=== PATIENT | female | born 1960 | race Caucasian/White ===

== ENCOUNTER 2020-10-03 10:19 | Outpatient (REF) | payer OTHER, SELFPAY ==
--- NOTE | 2020-10-03 10:29 | XR_ITS ---
EXAMINATION: XR KNEE, LEFT CLINICAL INFORMATION: Left knee pain. M25.562 COMPARISON: Standing AP knees 12/16/2018 TECHNIQUE: Four views of the left knee. FINDINGS: There is no fracture, dislocation, or destructive process. No definite suprapatellar effusion. Hoffa's fat pad appears normal. There is normal bony mineralization. There is tricompartment osteoarthritis, greatest medial compartment with joint narrowing and osteophytes. There is mild secondary genu varus. No visible erosive change or chondrocalcinosis. XR/XR knee LT 4V IMPRESSION: Tricompartment osteoarthritis, greatest medial compartment.
== END 2020-10-03 10:20 | disposition home or self-care (01) ==
LOC: HO.HMGCX 10:19
PROVIDERS: PCP Internal Medicine; Visit Provider Nurse Practitioner Family
DX: M25.562 Pain in left knee (principal)
CPT/HCPCS: 73564

== ENCOUNTER 2020-11-26 11:05 | Outpatient (REF) | payer OTHER, SELFPAY ==
--- NOTE | 2020-11-26 | MM_ITS ---
EXAMINATION: MM DIAGNOSTIC DIGITAL BREAST TOMOSYNTHESIS, BILATERAL CLINICAL INFORMATION: Short interval six-month follow-up probable bilateral benign asymmetric parenchymal densities. No convincing evidence of change from prior diagnostic additional view exam. No known family history breast cancer. The lifetime risk of breast cancer based on the Tyrer-Cuzick Model is 10%. COMPARISON: Mammography: 05/21/2020 05/15/2020 (BI-RADS 0), 05/12/2019, 05/06/2018, 05/03/2017 TECHNIQUE: Digital breast tomosynthesis is performed in both the craniocaudal and mediolateral oblique views along with computer-aided detection (CAD). Synthesized 2D images are generated from the tomosynthesis. FINDINGS: There are scattered areas of fibroglandular density (ACR BI-RADS breast composition Category b). There are scattered bilateral asymmetries similar to prior studies with no interval developing density or architectural abnormality. There is no significant mass. There is stable mass mid upper outer right breast with overlying biopsy clip marker. Neither breast shows abnormal calcifications. The axillary nodes are stable. Results are provided to the patient at time of visit by the technologist. There is a precaution, patient remains on surveillance with bilateral diagnostic mammography, due in 6 months. MM/MM tomosynthesis diagnostic BI IMPRESSION: Parenchymal pattern is similar to prior studies. No developing density or interval architectural abnormality. ASSESSMENT: BI-RADS 3: Probably Benign RECOMMENDATION: Diagnostic mammography at time of annual bilateral exam, due in 6 months. This patient's information was entered into a reminder system with a target due date for their next mammogram.
== END 2020-11-26 11:06 | disposition home or self-care (01) ==
LOC: HO.MAMMO 11:05
PROVIDERS: PCP Internal Medicine; Visit Provider Internal Medicine
DX: R92.2 Inconclusive mammogram (principal)
CPT/HCPCS: 77062; 77066

== ENCOUNTER 2020-12-02 09:19 | Outpatient (REF) | payer OTHER, SELFPAY ==
--- NOTE | 2020-12-02 09:40 | XR_ITS ---
EXAMINATION: KNEE X-RAY CLINICAL INFORMATION: Pain COMPARISON: Previous left knee x-ray September 2020 and AP view of both knees November 2018 TECHNIQUE: 3 views of each knee FINDINGS: Right: No fracture or dislocation is seen. There is slight varus angulation. There is severe arthritis at the medial femoral tibial and patellofemoral joints with joint space narrowing and osteophyte formation. There is no significant joint effusion. There are posterior soft tissue calcifications or ossifications questionable for a loose bodies. Left: No fracture or dislocation is seen. There is slight varus angulation. There is severe arthritis at the medial femoral tibial and patellofemoral joints with joint space narrowing and osteophyte formation. There is no significant joint effusion. XR/XR knee standing BI IMPRESSION: Severe bilateral arthritis.
--- NOTE | 2020-12-02 09:40 | XR_ITS ---
EXAMINATION: KNEE X-RAY CLINICAL INFORMATION: Pain COMPARISON: Previous left knee x-ray September 2020 and AP view of both knees November 2018 TECHNIQUE: 3 views of each knee FINDINGS: Right: No fracture or dislocation is seen. There is slight varus angulation. There is severe arthritis at the medial femoral tibial and patellofemoral joints with joint space narrowing and osteophyte formation. There is no significant joint effusion. There are posterior soft tissue calcifications or ossifications questionable for a loose bodies. Left: No fracture or dislocation is seen. There is slight varus angulation. There is severe arthritis at the medial femoral tibial and patellofemoral joints with joint space narrowing and osteophyte formation. There is no significant joint effusion. XR/XR knee LT 2V IMPRESSION: Severe bilateral arthritis.
--- NOTE | 2020-12-02 09:40 | XR_ITS ---
EXAMINATION: KNEE X-RAY CLINICAL INFORMATION: Pain COMPARISON: Previous left knee x-ray September 2020 and AP view of both knees November 2018 TECHNIQUE: 3 views of each knee FINDINGS: Right: No fracture or dislocation is seen. There is slight varus angulation. There is severe arthritis at the medial femoral tibial and patellofemoral joints with joint space narrowing and osteophyte formation. There is no significant joint effusion. There are posterior soft tissue calcifications or ossifications questionable for a loose bodies. Left: No fracture or dislocation is seen. There is slight varus angulation. There is severe arthritis at the medial femoral tibial and patellofemoral joints with joint space narrowing and osteophyte formation. There is no significant joint effusion. XR/XR knee RT 2V IMPRESSION: Severe bilateral arthritis.
== END 2020-12-02 09:20 | disposition home or self-care (01) ==
LOC: HO.HOSX 09:19
PROVIDERS: Visit Provider Orthopaedic Surgery
DX: M25.561 Pain in right knee (principal); M25.562 Pain in left knee
CPT/HCPCS: 20610; 73560; 73565; J1100

== ENCOUNTER 2020-12-27 11:58 | Outpatient (REF) | payer OTHER, SELFPAY | END 2020-12-27 11:59 | disposition home or self-care (01) | LOC: HO.LAB 11:58 | PROVIDERS: Visit Provider Nurse Practitioner Family | DX: R30.0 Dysuria (principal); M25.562 Pain in left knee | CPT/HCPCS: 87086 ==

== ENCOUNTER 2021-01-20 16:29 | Outpatient (REF) | payer OTHER, SELFPAY ==
--- NOTE | ~2021-01-20 | XR_ITS ---
EXAMINATION: XR TIBIA AND FIBULA, RIGHT CLINICAL INFORMATION: Pain in right leg COMPARISON: 12/02/2020 TECHNIQUE: AP and lateral views of the right tibia and fibula were obtained. FINDINGS: Diffuse soft tissue edema. No radiopaque foreign body or soft tissue gas. There is spurring of the tibial spines. Moderate medial, mild lateral compartment joint space narrowing. No fracture seen. XR/XR tibia fibula RT 2V IMPRESSION: No acute osseous abnormality of the right lower extremity. Diffuse soft tissue edema.
== END 2021-01-20 16:30 | disposition home or self-care (01) ==
LOC: HO.HMGCX 16:29
PROVIDERS: Visit Provider Hospitalist
DX: M79.604 Pain in right leg (principal)
CPT/HCPCS: 73590

== ENCOUNTER → 2021-02-06 08:47 | Outpatient (BNVA) | payer OTHER, SELFPAY | PROVIDERS: Visit Provider Orthopaedic Surgery ==

== ENCOUNTER 2021-02-17 12:00 | Outpatient (REF) | payer OTHER, SELFPAY ==
--- NOTE | ~2021-02-17 | XR_ITS ---
EXAMINATION: XR HIP, LEFT CLINICAL INFORMATION: Pain left hip COMPARISON: None TECHNIQUE: Two views of the left hip. FINDINGS: Bones and soft tissues are normal. No fracture. Alignment is anatomic. Hip joint space is maintained. XR/XR hip LT w PEL1V IMPRESSION: Unremarkable left hip exam.
== END 2021-02-17 12:01 | disposition home or self-care (01) ==
LOC: HO.HMGCX 12:00
PROVIDERS: PCP Internal Medicine; Visit Provider Nurse Practitioner Family
DX: M25.552 Pain in left hip (principal)
CPT/HCPCS: 73502

== ENCOUNTER 2021-03-05 09:30 | Outpatient (REF) | payer OTHER, SELFPAY ==
[2021-03-05 17:53] LABS: Alanine Aminotransferase 17 U/L (0-31); Albumin Level 4.1 g/dL (3.5-5.0); Alkaline Phosphatase 88 U/L (39-117); Anion Gap 14 (12-20); Aspartate Amino Transferase 15 U/L (5-31); Bilirubin Total 0.4 mg/dL (0.0-1.0); Blood Urea Nitrogen 17 mg/dL (9-16); Calcium 8.9 mg/dL (8.4-10.2); Carbon Dioxide 31 mmol/L (22-29); Chloride 101 mmol/L (96-108); Estimated Glomerular Filt Rate > 60; Glucose Random 105 mg/dL (60-115); Magnesium 2.3 mg/dL (1.6-2.6); Potassium 4.8 mmol/L (3.3-5.1); Sodium 141 mmol/L (135-145); Total Protein 7.3 g/dL (6.5-8.0)
[2021-03-05 18:06] LABS: Vitamin D 25-OH Total 56.1 ng/mL (>30)
== END 2021-03-05 09:31 | disposition home or self-care (01) ==
LOC: HO.HMGCLDS 09:30
PROVIDERS: PCP Internal Medicine; Visit Provider Internal Medicine
DX: R00.2 Palpitations (principal); M81.0 Age-related osteoporosis without current pathological fracture
CPT/HCPCS: 36415; 80053; 82306; 83735

== ENCOUNTER → 2021-04-08 08:44 | Outpatient (BNVA) | payer OTHER, SELFPAY | PROVIDERS: PCP Internal Medicine; Referring Provider Internal Medicine; Visit Provider Psychiatry & Neurology Neurology ==

== ENCOUNTER → 2021-06-06 09:21 | Outpatient (REF) | payer OTHER, SELFPAY ==
--- NOTE | 2021-06-06 09:24 | CA_ITS ---
Transthoracic Echocardiogram Patient (Last, First, Middle): Yaquelin Rasheed A Gender: Female Date of : 1960 Age: 60 Procedure Date: 06/06/2021 Procedure Type: Transthoracic Echocardiogram Location: OP Height: 154.94 cm Weight: 108.86 kg BSA: 2.04 m2 Heart Rate: bpm BP: 140 / 80 mmHg [place] [employer] Operator: ROSALINDA Referring MD: Jared Luna DO Symptoms: R00.2 - Palpitations Study Quality: Fair ECG Rhythm: Sinus Conclusions: - The left ventricular systolic function is normal. The visually estimated ejection fraction is between 65-70%. - No obvious valvular pathology seen on this study. Findings Left Ventricle Normal left ventricular cavity size. There is mildly increased left ventricular wall thickness. The left ventricular systolic function is normal. The visually estimated ejection fraction is between 65-70%. There is no evidence of regional wall motion abnormalities. Diastolic function is normal for age. Right Ventricle Normal right ventricular cavity size and systolic function. Atria The left atrium is normal in size. The right atrium is normal in size. Aortic Valve The aortic valve was not well visualized. The aortic valve structure and function is likely normal. There is no aortic valve stenosis. There is no aortic valve regurgitation. Mitral Valve The mitral valve appears normal. There is trace mitral valve regurgitation. There is no mitral valve stenosis. Pulmonic Valve The pulmonic valve was not well visualized. Tricuspid Valve Normal tricuspid valve structure. There is trace tricuspid valve regurgitation. The pulmonary artery systolic pressure is normal. Great Vessels The aortic annulus, sinuses of valsalva, and asc aorta are normal in size. Venous The inferior vena cava is normal in size and collapses greater than 50% with inspiration. Pericardium/Pleural There is no evidence of pericardial effusion. Prior Study Comparison No significant change compared to prior study dated: 05/22/2014. Recommendations, Care & Conclusions No obvious valvular pathology seen on this study. Measurements M-Mode Liner Measurements Normals - Women/Men IVSd: 1.47 0.6-0.9/0.6-1.0 cm LVIDd: 4.15 3.9-5.3/4.2-5.9 cm LVIDd Index: 2.03 1.9-3.2 cm/m2 LVIDs: 2.23 2.0-3.8 cm LVPWd: 1.38 0.6-0.9/0.6-1.0 cm LV Mass: 282.39 67-162/88-224g LV Mass Index: 138.43 43-95/49-115 g/m2 M-Mode Volumes LV EDV: 76.40 LV ESV: 16.80 2D Linear Measurements IVSd: 1.30 0.6-0.9/0.6-1.0 cm LVIDd: 3.57 3.9-5.3/4.2-5.9 cm LVIDd Index: 1.75 2.4-3.2/2.2-3.1 cm/m2 LVIDs: 2.47 2.0-3.6 cm LVPWd: 1.21 0.7-1.1 cm LA Diam: 3.90 2.7-3.8/3.0-4.0 cm LAIDs Index: 1.91 1.5-2.3 cm/m2 LV Mass: 186.43 67-162/88-224 g LV Mass Index: 91.39 43-95/49-115 g/m2 LVOT Diam: 2.00 3.0+(-)1.3 cm 2D Systolic Function EF 4C: 65.00 >55% EF 2C: 81.70 >55% EF BiP: 74.30 >55% M-Mode Systolic Function FS: 46.30 27-47/25-43% LVEF: 78.00 >55% Mitral Valve MV Pk E: 0.86 MV PK A: 0.53 MV Decel Time: 130.00 E/A: 1.60 E'Lateral: 10.70 E'Medial: 8.49 E/E' Med: 10.10 E/E' Lat: 8.00 PHT: 38.00 MVA PHT: 5.79 Decel [place]: 6.61 Aortic Valve AoV Pk Harrison: 1.44 AoV Pk Grad: 8.00 LVOT LVOT Pk Harrison: 1.04 LVOT Mn Harrison: 0.66 LVOT VTI: 0.22 LVOT Pk Grad: 4.00 LVOT Mn Grad: 2.00 LVOT Diam: 2.00 LVOT Area: 3.14 Diastolic Function MV Pk E: 0.86 MV Pk A: 0.53 E/A: 1.60 E'Medial: 8.49 E/E' Med: 10.10 E' Laterial: 10.70 E/E' Lat: 8.00 Tricuspid Valve TR Pk Harrison: 2.53 TR Pk Grad: 26.00 RA Press: 3.00 RVSP: 29.00 Great Vessels Aorta Ao Asc: 2.80 2.1-3.4 cm Updated in Other Vendor System with Status of Final Rocky Otero MD electronically signed on 06/07/2021 12:08:42 PM with status of Final
--- NOTE | 2021-06-06 09:39 | ECG_ITS ---
Hook-up date: 2021-06-06 10:32:00 Duration: 47:59:00 Test Indications: palpitations Medications: [id number] QRS complexes 36 Ventricular ectopics which represent <1 % of total QRS comp. 34 Supraventricular ectopics which represent <1 % of total QRS comp. * Paced QRS complexs which represent % of total QRS comp. VENTRICULAR ECTOPY 36 Isolated 0 Bigeminal Cycles 0 Couplets 0 Runs 0 Beats in Runs * Beats LONGEST at * BPM at :: -- * Beats FASTEST at * BPM at :: -- SUPRAVENTRICULAR ECTOPY 32 Isolated 1 Couplets 0 Runs 0 Beats in Runs * Beats LONGEST at * BPM at :: -- * Beats FASTEST at * BPM at :: -- HEART RATES 44 MIN at 06:32:11 2021-06-07 80 AVG 116 MAX at 21:23:46 2021-06-06 LONGEST RR 1.5120 secs at 06:32:11 2021-06-07 S-T LEVELS Channel 1 - 128 mm at 10:32:00 2021-06-06 - 128 mm at 10:32:00 2021-06-06 Channel 2 - 128 mm at 10:32:00 2021-06-06 - 128 mm at 10:32:00 2021-06-06 Channel 3 - 128 mm at 02:95:11 -- - 128 mm at 02:95:11 Underlying rhythm is sinus; Average ventricular rate 80/min; Rare PACs/PVCs; Palpitations in diary associated with sinus rhythm. Referred By: Jared Luna Overread By: AGNIESZKA SOOD
== END ==
LOC: HO.CARD 09:21
PROVIDERS: Visit Provider Hospitalist
DX: R00.2 Palpitations (principal)
CPT/HCPCS: 93225; 93226; 93306

== ENCOUNTER 2021-06-16 13:30 | Outpatient (REF) | payer OTHER, SELFPAY ==
--- NOTE | ~2021-06-16 | MM_ITS ---
EXAMINATION: MM DIAGNOSTIC DIGITAL BREAST TOMOSYNTHESIS, BILATERAL CLINICAL INFORMATION: Due for yearly. Also follow-up probable benign asymmetric parenchymal densities left mid 3:00 and right anterior upper breast. No known family history breast cancer. The lifetime risk of breast cancer based on the Tyrer-Cuzick Model is 7%. COMPARISON: Mammography: 11/26/2020, 05/21/2020, 05/15/2020 (BI-RADS 0), 05/12/2019, 05/06/2018, 05/03/2017, 04/17/2016, 03/29/2015. TECHNIQUE: Digital breast tomosynthesis is performed in both the craniocaudal and mediolateral oblique views along with computer-aided detection (CAD). Synthesized 2D images are generated from the tomosynthesis. FINDINGS: There are scattered areas of fibroglandular density (ACR BI-RADS breast composition Category b). There is no developing density or interval mass or architectural abnormality. There are scattered bilateral parenchymal densities and minor asymmetries related to shifting fibroglandular tissue. There is a biopsy clip marker again seen on right mid upper outer quadrant. Neither breast shows interval mass or architectural abnormality. There are no abnormal calcifications. The axilla and skin contours are unremarkable. Results are provided to the patient at time of visit by the technologist. Bilateral breasts will be reassessed again as a diagnostic exam at next bilateral annual study to conclude long-term surveillance. MM/MM tomosynthesis diagnostic BI IMPRESSION: There are no significant changes from prior study. ASSESSMENT: BI-RADS 3: Probably Benign RECOMMENDATION: Diagnostic mammography at time of next annual exam, due in 12 months. This patient's information was entered into a reminder system with a target due date for their next mammogram.
== END 2021-06-16 13:31 | disposition home or self-care (01) ==
LOC: HO.MAMMO 13:30
PROVIDERS: PCP Internal Medicine; Visit Provider Internal Medicine
DX: R92.2 Inconclusive mammogram (principal)
CPT/HCPCS: 77062; 77066

== ENCOUNTER → 2022-01-12 08:24 | Outpatient (BNVA) | payer OTHER, SELFPAY | PROVIDERS: PCP Internal Medicine; Visit Provider Psychiatry & Neurology Neurology ==

== ENCOUNTER 2022-06-24 14:49 | Outpatient (REF) | payer OTHER, SELFPAY ==
--- NOTE | ~2022-06-24 | MM_ITS ---
EXAMINATION: MM DIAGNOSTIC DIGITAL BREAST TOMOSYNTHESIS, BILATERAL CLINICAL INFORMATION: 1 year follow-up bilateral breast densities. The lifetime risk of breast cancer based on the Tyrer-Cuzick Model is 7.1%. COMPARISON: Mammography: June 16, 2021 and studies dating back to March 18, 2012 TECHNIQUE: Digital breast tomosynthesis is performed in both the craniocaudal and mediolateral oblique views along with computer-aided detection (CAD). Synthesized 2D images are generated from the tomosynthesis. FINDINGS: There are scattered areas of fibroglandular density (ACR BI-RADS breast composition Category b). There are no new significant masses, abnormal calcifications, or other abnormalities. There is stable appearance of bilateral breast densities. Results are provided to the patient at time of visit by the technologist. MM/MM tomosynthesis diagnostic BI IMPRESSION: There are no significant changes from prior study. ASSESSMENT: BI-RADS 2: Benign RECOMMENDATION: Routine annual mammography screening due in 12 months. This patient's information was entered into a reminder system with a target due date for their next mammogram.
== END 2022-06-24 14:50 | disposition home or self-care (01) ==
LOC: HO.MAMMO 14:49
PROVIDERS: Visit Provider Internal Medicine
DX: R92.2 Inconclusive mammogram (principal)
CPT/HCPCS: 77062; 77066

== ENCOUNTER 2022-08-25 11:54 | Inpatient (IN) | payer OTHER, SELFPAY ==
[2022-08-25] VITALS (10 sets, daily range): BP systolic 100–145; BP diastolic 49–88; PULSE 79–145; RESP 16–24; TEMP 36.7–37.1; O2SAT 94–99; BMI 46.6
--- NOTE | ~2022-08-25 | XR_ITS ---
EXAMINATION: XR CHEST CLINICAL INFORMATION: Chest pressure COMPARISON: Chest radiograph 05/17/2019, 05/24/2014 TECHNIQUE: Frontal view of the chest was obtained. FINDINGS: There is mild elevation/eventration right anterior diaphragm similar to prior studies. There is no pneumothorax or pleural reaction or effusion. Tapering at the cardiac apex is again seen consistent with areolar tissue. Possibility of superimposed subsegmental atelectasis left lateral base cannot be excluded. There are no air bronchograms. No lobar or segmental airspace consolidation. Heart size normal. Vascularity normal. The hilar and mediastinal contours are normal. There are multilevel degenerative changes thoracic spine. XR/XR chest 1V IMPRESSION: -No pneumothorax or pleural reaction. Heart size normal. -No lobar or segmental airspace consolidation. -Probable areolar tissue left lateral base. Cannot exclude subsegmental atelectasis.
--- NOTE | 2022-08-25 12:15 | ECG_ITS ---
Test Reason : AFIB Blood Pressure : / mmHG Vent. Rate : 127 BPM Atrial Rate : 000 BPM P-R Int : 000 ms QRS Dur : 130 ms QT Int : 312 ms P-R-T Axes : 000 090 -05 degrees QTc Int : 453 ms Atrial fibrillation with rapid ventricular response Right bundle branch block T wave abnormality, consider inferior ischemia Abnormal ECG When compared with ECG of 25-JAN-2009 14:59, Atrial fibrillation has replaced Sinus rhythm Vent. rate has increased BY 44 BPM Right bundle branch block is now Present Minimal criteria for Anterior infarct are no longer Present Referred By: Generic ED Physician Electronically Signed By:LENORE CARR
--- NOTE | 2022-08-25 13:00 | ED.ARRPALP ---
HPI - Arrhythmia/Palpitations General Chief Complaint: Arrhythmia/Palpitations Stated Complaint: abdnormal EKG Time Seen by Provider: 08/25/22 12:49 Source: patient Mode of arrival: ambulatory Limitations: no limitations History of Present Illness HPI narrative: Patient comes to the emergency room complaining of an abnormal EKG. Patient went to see her primary care physician today. Patient inform her PCP that she has been having short of breath with exertion for the last couple of weeks, no chest pain, mild chest pressure. However, she has been having intermittent symptoms for couple of months. An EKG was done in the office which showed atrial fibrillation with RVR. Patient was sent to the emergency room for further evaluation. Patient states that she does not feel palpitations, no chest pain. Other than the shortness of breath with exertion, she has no other symptoms. Related Data Home Medications Medication Instructions Recorded Confirmed cholecalciferol (vitamin D3) 50 50 mcg PO DAILY 10/03/20 08/25/22 mcg (2,000 unit) capsule levothyroxine 125 mcg tablet 125 mcg PO DAILY 08/25/22 08/25/22 omeprazole 20 mg capsule,delayed 20 mg PO DAILY PRN GERD 08/25/22 08/25/22 release Previous Rx's Medication Instructions Recorded atenolol 100 mg tablet 100 mg PO DAILY #90 tabs 08/25/22 olmesartan 40 1 tab PO DAILY #90 tabs 08/25/22 mg-hydrochlorothiazide 25 mg tablet Allergies Allergy/AdvReac Type Severity Reaction Status Date / Time lisinopril [LISINOPRIL] Allergy Unknown HIVES, rash Verified 08/25/22 10:11 BANDAIDS Allergy Unknown ITCHY, RASH Uncoded 08/25/22 10:11 e-mycin Allergy Unknown abd pain Uncoded 08/25/22 10:11 Erythromycin Allergy Unknown stomach Uncoded 08/25/22 10:11 upset From ERYTHROCIN Allergy Unknown ABDOMINAL Uncoded 08/25/22 10:11 PAIN lisinopril Allergy Unknown rash Uncoded 08/25/22 10:11 Review of Systems Review of Systems: Constitutional : No Weight loss, No Fever, No Chills, No Night Sweats, No Fatigue, No Malaise ENT/Mouth : No Hearing loss, No Ear Pain, No Nasal Congestion, No Sinus Pain, No Hoarseness, No sore throat, No Rhinorrhea, No Swallowing Difficulty Eyes: No Eye Pain, No Swelling, No Redness, No Foreign Body, No Discharge, No Vision Changes Cardiovascular : No Chest Pain, complaining of dyspnea with exertion, no orthopnea, occasional palpitations Respiratory : No Cough, No Sputum, No Wheezing, No Smoke Exposure, No Dyspnea at this time Gastrointestinal : No Nausea, No Vomiting, No Diarrhea, No Constipation, No abdominal Pain, No Hematochezia, No Melena Genitourinary : no irregular bleeding, No Dysuria, No Urinary Frequency, No Hematuria, No Urinary Incontinence, No Urgency, No Flank Pain, No Urinary Flow Changes, No Hesitancy Musculoskeletal : No joint pain, No Myalgias, No Joint Swelling Skin : No Skin Lesions, No rash Neuro : No Weakness, No Numbness, No Paresthesias, No Loss of Consciousness, No Dizziness, No Headache Psych : No Anxiety/Panic, No Depression, No SI/HI/AH/VH, No Social Issues, Heme/Lymph: No Bruising, No Bleeding,No Lymphadenopathy Endocrine : No Polyuria, No Polydipsia, No Temperature Intolerance [facility] Past Medical History Medical History Acid reflux Depression with anxiety Hypertension Hypothyroid Kidney stone Knee pain, left QAMAR (obstructive sleep apnea) Osteoporosis Thyroid cancer Urethral stenosis Surgical History H/O colonoscopy History of partial hysterectomy History of thyroidectomy Family History Family History Mother Lung cancer Father HTN (hypertension) Melanoma Social History Social History Housing: House Alcohol intake: current Alcohol intake frequency: holidays/special occasions only Patient Tobacco Use Status: Never used Tobacco e-Cigarette/Vaping Use: Never Used Advance Directives: No Advance Directives Information Provided: Yes Current occupational status: unemployed Current occupation: right handed Cognitive needs: No Hearing needs: No Vision needs: Yes Physical Exam Vital Signs: Vital Signs: Last Vital Signs Temp 98.8 F 08/25/22 18:23 Pulse 104 H 08/25/22 18:23 Resp 24 H 08/25/22 18:23 BP 119/88 08/25/22 18:23 Pulse Ox 96 08/25/22 18:23 O2 Del Method 08/25/22 18:23 BMI result Body Mass Index 46.6 Const: Other: Appearance: Alert. Oriented X3. No acute distress. Well-appearing Eyes: Pupils equal, round and reactive to light. ENT: Pharynx normal. Neck: Normal inspection. Neck supple. No lymph nodes noted. No crepitus CVS: Irregularly irregular heart rate in the 140s, Pulses normal. Normal S1 and S2 Respiratory: No respiratory distress. Breath sounds normal. No Wheezing. No rales Abdomen: Soft and nontender. No rigidity. No distention. Skin: Skin warm and dry. Normal skin color. Normal skin turgor. Extremities: No lower extremity edema. No Lacerations. No Rash Neuro: Oriented X 3. No motor deficit. No sensory deficit. Moving all extremities. No slurred speech. CN 2 through 12 grossly intact Psych: calm, cooperative, normal affect Course Course Course Narrative: All of patient's labs are pending, EKG shows AFib with RVR, heart rate 127, right bundle branch block, QTC 453 Patient takes atenolol at home 100 mg once a day. At this time, patient will be getting 20 mg of IV Cardizem. Current blood pressure 120/80. Patient's CHADS2 Vasc 2 score is 2. I discussed with the patient that she will likely need blood thinners. I discussed the risks versus benefits of blood thinners. Patient agrees to start taking anticoagulation medication After 1 dose of Cardizem, initially her heart rate was controlled in the 80s, slowly it started increasing between 110-120. Blood pressure in the low 100s. At this time, patient getting IV fluids and calcium gluconate. Once the blood pressure is more stable, we will go ahead and give her 1 more dose of Cardizem. Patient's blood pressure 133 systolic, heart rate between 120 to 130. Patient will be given another dose of Cardizem 20 mg. After the 2nd dose of Cardizem 20 mg, patient's heart rate between 90 and 100, still in atrial fibrillation, blood pressure in the 130s. I discussed the EKG and the above-mentioned with Dr. Galarza, recommendations: Check D-dimer, start Cardizem drip and admitted. Patient agrees with plan D-dimer is negative Dr. Bermeo admitted the patient MDM - Arrhythmia/Palpitations Lab Data Result diagrams: 08/25/22 13:29 08/25/22 13:29 Labs: Lab Results 08/25/22 08/25/22 08/25/22 Range/Units 13:29 13:29 13:29 WBC 12.3 H Cancelled (4.8-10.8) X10*3/uL RBC 5.24 Cancelled (4.20-5.50) X10*6/uL Hgb 13.8 Cancelled (12.0-16.0) g/dl Hct 44.5 Cancelled (37.0-47.0) % MCV 84.9 Cancelled (80.0-98.0) fL MCH 26.3 L Cancelled (27.0-33.0) pg MCHC 31.0 Cancelled (31.0-35.0) g/dl RDW 14.3 Cancelled (11.0-16.0) % Plt Count 284 Cancelled (160-400) X10*3/uL MPV 9.8 Cancelled (9.4-12.3) fL Immature Gran % (Auto) 0.4 Cancelled (0.0-0.4) % Neut % (Auto) 67.4 Cancelled (45-73) % Lymph % (Auto) 21.0 Cancelled (20-40) % [place] % (Auto) 5.8 Cancelled (2-11) % Eos % (Auto) 5.0 H Cancelled (0-4) % Baso % (Auto) 0.4 Cancelled (0-2) % Lymph # (Auto) 2.6 Cancelled (1.2-4.9) X10*3/uL [place] # (Auto) 0.7 Cancelled (0.1-1.2) X10*3/uL Eos # (Auto) 0.6 H Cancelled (0.0-0.4) X10*3/uL Baso # (Auto) 0.1 Cancelled (0.0-0.2) X10*3/uL Abs Immat Gran (auto) 0.05 H Cancelled (0.00-0.03) X10*3/uL Absolute Neuts (auto) 8.3 Cancelled (2.0-8.3) x10*3/uL Absolute Nucleated RBC 0.000 Cancelled (0.0-0.012) X10*3/uL Nucleated RBC % (auto) 0.0 Cancelled (0.0-0.2) /100WBC PT (10.0-13.1) SEC INR (0.9-1.1) D-Dimer High Sensitivty NG/ML Sodium 143 (135-145) mmol/L Potassium 4.7 (3.3-5.1) mmol/L Chloride 102 (96-108) mmol/L Carbon Dioxide 29 (22-29) mmol/L Anion Gap 17 (12-20) BUN 18 H (9-16) mg/dL Creatinine 0.84 (0.5-1.4) mg/dL Estim Creat Clear Calc 80.5 Estimated GFR > 60 Random Glucose 114 (60-115) mg/dL Calcium 9.5 D (8.4-10.2) mg/dL Magnesium (1.6-2.6) mg/dL Total Bilirubin (0.0-1.0) mg/dL Direct Bilirubin (0.0-0.5) mg/dL AST (5-31) U/L ALT (0-31) U/L Alkaline Phosphatase (39-117) U/L Troponin I High Sens B-Natriuretic Peptide (<100) pg/mL Total Protein (6.5-8.0) g/dL Albumin (3.5-5.0) g/dL TSH (0.32-4.0) uIU/mL Free T4 (0.71-1.85) ng/dL COVID-19 (KELVIN) (Negative) COVID-19 Clin Com 08/25/22 08/25/22 08/25/22 Range/Units 13:29 13:29 13:29 WBC (4.8-10.8) X10*3/uL RBC (4.20-5.50) X10*6/uL Hgb (12.0-16.0) g/dl Hct (37.0-47.0) % MCV (80.0-98.0) fL MCH (27.0-33.0) pg MCHC (31.0-35.0) g/dl RDW (11.0-16.0) % Plt Count (160-400) X10*3/uL MPV (9.4-12.3) fL Immature Gran % (Auto) (0.0-0.4) % Neut % (Auto) (45-73) % Lymph % (Auto) (20-40) % [place] % (Auto) (2-11) % Eos % (Auto) (0-4) % Baso % (Auto) (0-2) % Lymph # (Auto) (1.2-4.9) X10*3/uL [place] # (Auto) (0.1-1.2) X10*3/uL Eos # (Auto) (0.0-0.4) X10*3/uL Baso # (Auto) (0.0-0.2) X10*3/uL Abs Immat Gran (auto) (0.00-0.03) X10*3/uL Absolute Neuts (auto) (2.0-8.3) x10*3/uL Absolute Nucleated RBC (0.0-0.012) X10*3/uL Nucleated RBC % (auto) (0.0-0.2) /100WBC PT 11.2 (10.0-13.1) SEC INR 1.0 (0.9-1.1) D-Dimer High Sensitivty 228 NG/ML Sodium 143 (135-145) mmol/L Potassium 4.5 (3.3-5.1) mmol/L Chloride 102 (96-108) mmol/L Carbon Dioxide 30 H (22-29) mmol/L Anion Gap 16 (12-20) BUN 18 H (9-16) mg/dL Creatinine 0.84 (0.5-1.4) mg/dL Estim Creat Clear Calc 80.5 Estimated GFR > 60 Random Glucose 115 (60-115) mg/dL Calcium 9.5 (8.4-10.2) mg/dL Magnesium 2.0 (1.6-2.6) mg/dL Total Bilirubin 0.3 (0.0-1.0) mg/dL Direct Bilirubin 0.2 (0.0-0.5) mg/dL AST 15 (5-31) U/L ALT 13 (0-31) U/L Alkaline Phosphatase 87 (39-117) U/L Troponin I High Sens Cancelled B-Natriuretic Peptide (<100) pg/mL Total Protein 7.3 (6.5-8.0) g/dL Albumin 4.2 (3.5-5.0) g/dL TSH (0.32-4.0) uIU/mL Free T4 (0.71-1.85) ng/dL COVID-19 ([facility]ELVIN) (Negative) COVID-19 Clin Com 08/25/22 08/25/22 08/25/22 Range/Units 13:29 13:29 16:43 WBC (4.8-10.8) X10*3/uL RBC (4.20-5.50) X10*6/uL Hgb (12.0-16.0) g/dl Hct (37.0-47.0) % MCV (80.0-98.0) fL MCH (27.0-33.0) pg MCHC (31.0-35.0) g/dl RDW (11.0-16.0) % Plt Count (160-400) X10*3/uL MPV (9.4-12.3) fL Immature Gran % (Auto) (0.0-0.4) % Neut % (Auto) (45-73) % Lymph % (Auto) (20-40) % [place] % (Auto) (2-11) % Eos % (Auto) (0-4) % Baso % (Auto) (0-2) % Lymph # (Auto) (1.2-4.9) X10*3/uL [place] # (Auto) (0.1-1.2) X10*3/uL Eos # (Auto) (0.0-0.4) X10*3/uL Baso # (Auto) (0.0-0.2) X10*3/uL Abs Immat Gran (auto) (0.00-0.03) X10*3/uL Absolute Neuts (auto) (2.0-8.3) x10*3/uL Absolute Nucleated RBC (0.0-0.012) X10*3/uL Nucleated RBC % (auto) (0.0-0.2) /100WBC PT (10.0-13.1) SEC INR (0.9-1.1) D-Dimer High Sensitivty NG/ML Sodium (135-145) mmol/L Potassium (3.3-5.1) mmol/L Chloride (96-108) mmol/L Carbon Dioxide (22-29) mmol/L Anion Gap (12-20) BUN (9-16) mg/dL Creatinine (0.5-1.4) mg/dL Estim Creat Clear Calc Estimated GFR Random Glucose (60-115) mg/dL Calcium (8.4-10.2) mg/dL Magnesium (1.6-2.6) mg/dL Total Bilirubin (0.0-1.0) mg/dL Direct Bilirubin (0.0-0.5) mg/dL AST (5-31) U/L ALT (0-31) U/L Alkaline Phosphatase (39-117) U/L Troponin I High Sens < 3.5 B-Natriuretic Peptide 86 (<100) pg/mL Total Protein (6.5-8.0) g/dL Albumin (3.5-5.0) g/dL TSH 0.11 L (0.32-4.0) uIU/mL Free T4 1.44 (0.71-1.85) ng/dL COVID-19 (KELVIN) Negative (Negative) COVID-19 Clin Com See Note Critical Care Time Critical Care Time Critical Care Time: Yes Total Critical Care Time: 60 Attestation: I have personally provided critical care time. Time includes review of lab data, radiology results, discussion with consultants, and monitoring for potential decompensation. Intervention performed as documented. Discharge Plan Discharge Clinical Impression: Atrial fibrillation with RVR Patient Disposition: Admitted As Inpatient
[2022-08-25] MEDS: dilTIAZem HCL 50 MG/10 ML VIAL 20 MG IVPUSH ×2 (13:30→16:28)
[2022-08-25] MEDS: 0.9 % Sodium Chloride 1,000 ML 999 ML IVCONT ×2 (13:30→15:22)
[2022-08-25 13:50] LABS: MANUAL DIFF FLAG NO
[2022-08-25 13:53] LABS: Anion Gap 17 (12-20); Blood Urea Nitrogen 18 mg/dL (9-16); Calcium 9.5 mg/dL (8.4-10.2); Carbon Dioxide 29 mmol/L (22-29); Chloride 102 mmol/L (96-108); Creatinine Clr Calc Pharmacy 80.5; Estimated Glomerular Filt Rate > 60; Glucose Random 114 mg/dL (60-115); Potassium 4.7 mmol/L (3.3-5.1); Sodium 143 mmol/L (135-145)
[2022-08-25 13:55] LABS: Alanine Aminotransferase 13 U/L (0-31); Albumin Level 4.2 g/dL (3.5-5.0); Alkaline Phosphatase 87 U/L (39-117); Anion Gap 16 (12-20); Aspartate Amino Transferase 15 U/L (5-31); Bilirubin Direct 0.2 mg/dL (0.0-0.5); Bilirubin Total 0.3 mg/dL (0.0-1.0); Blood Urea Nitrogen 18 mg/dL (9-16); Calcium 9.5 mg/dL (8.4-10.2); Carbon Dioxide 30 mmol/L (22-29); Chloride 102 mmol/L (96-108); Creatinine Clr Calc Pharmacy 80.5; Estimated Glomerular Filt Rate > 60; Glucose Random 115 mg/dL (60-115); Potassium 4.5 mmol/L (3.3-5.1); Sodium 143 mmol/L (135-145); Total Protein 7.3 g/dL (6.5-8.0)
[2022-08-25 13:56] LABS: Basophils Absolute Auto 0.1 X10*3/uL (0.0-0.2); Basophils Percent Auto 0.4 % (0-2); Eosinophils Absolute Auto 0.6 X10*3/uL (0.0-0.4); Hematocrit 44.5 % (37.0-47.0); Hemoglobin 13.8 g/dl (12.0-16.0); Imm Gran Abs Auto 0.05 X10*3/uL (0.00-0.03); Imm Gran Pct Auto 0.4 % (0.0-0.4); Lymphocytes Absolute Auto 2.6 X10*3/uL (1.2-4.9); Mean Corpuscular Hemoglobin 26.3 pg (27.0-33.0); Mean Corpuscular Volume 84.9 fL (80.0-98.0); Mean Platelet Volume 9.8 fL (9.4-12.3); Monocytes Absolute Auto 0.7 X10*3/uL (0.1-1.2); Monocytes Percent Auto 5.8 % (2-11); Neutrophils Absolute Auto 8.3 x10*3/uL (2.0-8.3); Neutrophils Percent Auto 67.4 % (45-73); Platelet Count 284 X10*3/uL (160-400); Red Blood Count 5.24 X10*6/uL (4.20-5.50); Red Cell Distribution Width 14.3 % (11.0-16.0); White Blood Count 12.3 X10*3/uL (4.8-10.8)
[2022-08-25 13:58] LABS: Prothrombin Time 11.2 SEC (10.0-13.1)
[2022-08-25 14:15] LABS: TSH reflex Free T4 0.11 uIU/mL (0.32-4.0)
[2022-08-25 14:16] LABS: B Type Natriuretic Peptide 86 pg/mL (<100); Troponin-I High Sensitivity < 3.5 ng/L (<3.5-17.0)
[2022-08-25 15:06] LABS: Free T4 (Free Thyroxine) 1.44 ng/dL (0.71-1.85)
[2022-08-25] MEDS: Calcium Gluconate/NaCl,Iso-Osm 2 GM/100 ML PLAST..BAG IV (15:21)
[2022-08-25 17:05] LABS: COVID-19 Test Negative (Negative); IDNOW Serial# 16C4AD1C
[2022-08-25 18:30] LABS: D Dimer High Sensitivity 228 NG/ML
--- NOTE | 2022-08-25 18:48 | PHA.MEDREC ---
Pharmacy Consult ? Medication Reconciliation Pharmacy has completed the medication reconciliation.
--- NOTE | 2022-08-25 19:31 | P.HPHOSP_ITS ---
History of Present Illness Date of Service: 08/25/22 Chief Complaint: Palpitations 62-year-old female with a past medical history of hypertension, history of thyroid cancer, stenosis, obstructive sleep apnea, hypothyroidism, anxiety, depression, GERD, obesity presented to the hospital today with a chief complaint of shortness of breath. Patient mentions that for the past 2 weeks he has been having shortness of breath especially on exertion. Lately she also noticed mild chest discomfort/palpitations. Patient had an EKG done as outpatient and noted to have new onset AFib with rapid ventricular response; subsequently also to go to the ER for further evaluation. Patient mentions on presentation her heart rate was in 140s. Denies any numbness tingling or focal weakness. Denies any falls or trauma. Denies any recent travel or sick contacts. Denies any GI symptoms. Review of all other systems is negative except mentioned above ER course: Per ER team patient on presentation noted to be in rapid AFib with heart rate in 140s; new onset AFib. Discussed with Cardiology-day recommended to start the patient on Cardizem drip. Patient's EKG was nonischemic. Troponin was negative. Admitted for further management [facility] Medical History Acid reflux Depression with anxiety Hypertension Hypothyroid Kidney stone Knee pain, left QAMAR (obstructive sleep apnea) Osteoporosis Thyroid cancer Urethral stenosis Family History Mother Lung cancer Father HTN (hypertension) Melanoma Surgical History H/O colonoscopy History of partial hysterectomy History of thyroidectomy Social History Housing: House Alcohol intake: current Alcohol intake frequency: holidays/special occasions only Patient Tobacco Use Status: Never used Tobacco e-Cigarette/Vaping Use: Never Used Advance Directives: No Advance Directives Information Provided: Yes Current occupational status: unemployed Current occupation: right handed Cognitive needs: No Hearing needs: No Vision needs: Yes Meds Allergies Allergy/AdvReac Type Severity Reaction Status Date / Time lisinopril [LISINOPRIL] Allergy Unknown HIVES, rash Verified 08/25/22 10:11 BANDAIDS Allergy Unknown ITCHY, RASH Uncoded 08/25/22 10:11 e-mycin Allergy Unknown abd pain Uncoded 08/25/22 10:11 Erythromycin Allergy Unknown stomach Uncoded 08/25/22 10:11 upset From ERYTHROCIN Allergy Unknown ABDOMINAL Uncoded 08/25/22 10:11 PAIN lisinopril Allergy Unknown rash Uncoded 08/25/22 10:11 Active Medications: Current Medications Acetaminophen (Acetaminophen 325 Mg Tablet) 650 mg PO Q6H PRN PRN Reason: Pain, Mild (Pain Scale 1-3) Diltiazem HCl 125 mg/ Sodium (Chloride) 125 mls @ 0 mls/hr IVCONT .Q0M [facility]; Protocol Melatonin (Melatonin 3 Mg Tablet) 6 mg PO BEDTIME PRN PRN Reason: Insomnia Pharmacy Consult (Consult Rx Perform Med Rec) 1 each MISCELLANE ONCE PRN PRN Reason: Consult order Senna (Sennosides 8.6 Mg Tablet) 17.2 mg PO BEDTIME PRN PRN Reason: Constipation Sodium Chloride (0.9 % Sodium Chloride Flush 3 Ml Syringe) 3 ml IVFLUSH QSHIFT [facility] Home Medications Medication Instructions Recorded Confirmed Last Taken Type cholecalciferol (vitamin D3) 50 50 mcg PO DAILY 10/03/20 08/25/22 08/25/22 History mcg (2,000 unit) capsule levothyroxine 125 mcg tablet 125 mcg PO DAILY 08/25/22 08/25/22 08/25/22 History omeprazole 20 mg capsule,delayed 20 mg PO DAILY PRN GERD 08/25/22 08/25/22 Unknown History release Physical Exam Vital Signs and Narrative: Vital Signs: Last Vital Signs Temp 98.8 F 08/25/22 18:23 Pulse 104 H 08/25/22 18:23 Resp 24 H 08/25/22 18:23 BP 119/88 08/25/22 18:23 Pulse Ox 96 08/25/22 18:23 O2 Del Method 08/25/22 18:23 BMI result Body Mass Index 46.6 Gen: Appears be in no acute distress HEENT: NCAT, Moist mucosa. Pulmonary: Vesicular breath sounds, fair air entry CVS: Normal S1-S2 Abdomen: BS+, Soft, Nontender Extremities: Warm well perfused; no calf tenderness noted Neuro: Alert and awake. Results Labs CBC and Chem 7: 08/25/22 13:29 08/25/22 13:29 Labs: Laboratory Results - last 24 hr 08/25/22 08/25/22 08/25/22 13:29 13:29 13:29 MCV 84.9 Cancelled MCH 26.3 L Cancelled MCHC 31.0 Cancelled RDW 14.3 Cancelled Plt Count 284 Cancelled MPV 9.8 Cancelled Immature Gran % (Auto) 0.4 Cancelled Neut % (Auto) 67.4 Cancelled Lymph % (Auto) 21.0 Cancelled [place] % (Auto) 5.8 Cancelled Eos % (Auto) 5.0 H Cancelled Baso % (Auto) 0.4 Cancelled Lymph # (Auto) 2.6 Cancelled [place] # (Auto) 0.7 Cancelled Eos # (Auto) 0.6 H Cancelled Baso # (Auto) 0.1 Cancelled Abs Immat Gran (auto) 0.05 H Cancelled Absolute Neuts (auto) 8.3 Cancelled Absolute Nucleated RBC 0.000 Cancelled Nucleated RBC % (auto) 0.0 Cancelled PT INR D-Dimer High Sensitivty Anion Gap 17 Estim Creat Clear Calc 80.5 Estimated GFR > 60 Random Glucose 114 Calcium 9.5 D Magnesium Total Bilirubin Direct Bilirubin AST ALT Alkaline Phosphatase B-Natriuretic Peptide Total Protein Albumin TSH Free T4 COVID-19 ([facility]IN) COVID-[employer] 08/25/22 08/25/22 08/25/22 13:29 13:29 13:29 MCV MCH MCHC RDW Plt Count MPV Immature Gran % (Auto) Neut % (Auto) Lymph % (Auto) [place] % (Auto) Eos % (Auto) Baso % (Auto) Lymph # (Auto) [place] # (Auto) Eos # (Auto) Baso # (Auto) Abs Immat Gran (auto) Absolute Neuts (auto) Absolute Nucleated RBC Nucleated RBC % (auto) PT 11.2 INR 1.0 D-Dimer High Sensitivty 228 Anion Gap 16 Estim Creat Clear Calc 80.5 Estimated GFR > 60 Random Glucose 115 Calcium 9.5 Magnesium 2.0 Total Bilirubin 0.3 Direct Bilirubin 0.2 AST 15 ALT 13 Alkaline Phosphatase 87 B-Natriuretic Peptide 86 Total Protein 7.3 Albumin 4.2 TSH Free T4 COVID-19 ([facility]ELVIN) COVID-[employer] 09/27/22 09/27/22 13:29 16:43 MCV MCH MCHC RDW Plt Count MPV Immature Gran % (Auto) Neut % (Auto) Lymph % (Auto) [place] % (Auto) Eos % (Auto) Baso % (Auto) Lymph # (Auto) [place] # (Auto) Eos # (Auto) Baso # (Auto) Abs Immat Gran (auto) Absolute Neuts (auto) Absolute Nucleated RBC Nucleated RBC % (auto) PT INR D-Dimer High Sensitivty Anion Gap Estim Creat Clear Calc Estimated GFR Random Glucose Calcium Magnesium Total Bilirubin Direct Bilirubin AST ALT Alkaline Phosphatase B-Natriuretic Peptide Total Protein Albumin TSH 0.11 L Free T4 1.44 COVID-19 ([facility]ELVIN) Negative COVID-19 Clin Com See Note Imaging Radiologist's Impressions: Impressions Chest X-Ray 08/25/22 13:49 IMPRESSION: -No pneumothorax or pleural reaction. Heart size normal. -No lobar or segmental airspace consolidation. -Probable areolar tissue left lateral base. Cannot exclude subsegmental atelectasis. Assessment and Plan (1) Atrial fibrillation with RVR: Status: Acute Plan 62-year-old female with a past medical history of hypertension, history of thyroid cancer, stenosis, obstructive sleep apnea, hypothyroidism, anxiety, depression, GERD, obesity presented to the hospital today with a chief complaint of shortness of breath/chest discomfort/palpitations. Noted to have new onset AFib with rapid ventricular response. Admitted for further management. New onset AFib with rapid ventricular response: Patient started on diltiazem drip. Will hold home atenolol/olmesartan/hydrochlorothiazide to provide room for blood pressure Patient chart Vasc score is 2-will start with Eliquis. Patient was educated in detail about the side effects. Patient agreed to start Eliquis. Echocardiogram Cardiology aware of the patient Chest discomfort/shortness of breath/dyspnea on exertion: Likely in the setting of AFib. Will also obtain D-dimer. Troponin negative. History of hypothyroidism: Patient TSH noted to be 0.11. Free T4 within normal limits. Recommended to follow-up with PCP for further management. Continue home levothyroxine History of GERD: Continue home PPI DVT prophylaxis: Patient on Eliquis Code status: Full code Quality Stroke Does the patient have a stroke diagnosis?: No VTE Prior VTE?: No VTE Risk Level:: Medical - moderate - high VTE Device Contraindication: Treatment Not Indicated VTE Drug Contraindication: N/A - Med Ordered
[2022-08-25] MEDS: Apixaban 5 MG TABLET PO (21:18)
[2022-08-25] MEDS: dilTIAZem HCL 125 MG in 0.9 % Sodium Chloride 100 ML 10 MG IVCONT (21:19)
--- NOTE | 2022-08-25 21:23 | PC.NURSE ---
pt a&ox3, vss, afib on monitor w rate between 95-125, spoke w provider RE rate, diltiazem started at 10mg/hr, pt resting comfortably, denies any pain at this time. no new orders.
[2022-08-25 22:27] LABS: D Dimer High Sensitivity 204 NG/ML
[2022-08-26 01:58] VITALS: BP 165/70; PULSE 93; RESP 16; O2SAT 95
--- NOTE | 2022-08-26 02:27 | PC.NURSE ---
IV infiltrated, new 20G IV placed left forearm.
[2022-08-26 03:11] VITALS: PULSE 77; RESP 21; O2SAT 96
[2022-08-26 04:17] LABS: MANUAL DIFF FLAG NO
[2022-08-26 04:24] LABS: Basophils Percent Auto 0.4 % (0-2); Eosinophils Absolute Auto 0.6 X10*3/uL (0.0-0.4); Eosinophils Percent Auto 4.9 % (0-4); Hematocrit 41.1 % (37.0-47.0); Hemoglobin 12.5 g/dl (12.0-16.0); Imm Gran Abs Auto 0.04 X10*3/uL (0.00-0.03); Imm Gran Pct Auto 0.4 % (0.0-0.4); Lymphocytes Absolute Auto 2.9 X10*3/uL (1.2-4.9); Lymphocytes Percent Auto 25.6 % (20-40); Mean Corpuscular HGB Conc 30.4 g/dl (31.0-35.0); Mean Corpuscular Volume 85.4 fL (80.0-98.0); Mean Platelet Volume 9.7 fL (9.4-12.3); Monocytes Absolute Auto 0.6 X10*3/uL (0.1-1.2); Monocytes Percent Auto 5.3 % (2-11); Neutrophils Absolute Auto 7.1 x10*3/uL (2.0-8.3); Neutrophils Percent Auto 63.4 % (45-73); Platelet Count 254 X10*3/uL (160-400); Red Blood Count 4.81 X10*6/uL (4.20-5.50); Red Cell Distribution Width 14.4 % (11.0-16.0); White Blood Count 11.1 X10*3/uL (4.8-10.8)
[2022-08-26 04:50] LABS: Anion Gap 19 (12-20); Blood Urea Nitrogen 16 mg/dL (9-16); Calcium 9.1 mg/dL (8.4-10.2); Carbon Dioxide 25 mmol/L (22-29); Chloride 105 mmol/L (96-108); Estimated Glomerular Filt Rate > 60; Glucose Random 110 mg/dL (60-115); Potassium 4.1 mmol/L (3.3-5.1); Sodium 145 mmol/L (135-145)
[2022-08-26 06:03] VITALS: BP 155/73; PULSE 97; RESP 20; TEMP 36.6; O2SAT 94
[2022-08-26] MEDS: Levothyroxine Sodium 125 MCG TABLET PO (06:32)
--- NOTE | 2022-08-26 07:00 | CA_ITS ---
Transthoracic Echocardiogram Patient (Last, First, Middle): Yaquelin Rasheed A Gender: Female Date of : 1960 Age: 62 Procedure Date: 08/26/2022 Procedure Type: Transthoracic Echocardiogram Location: ER Height: 154.94 cm Weight: 112.04 kg BSA: 2.07 m2 Heart Rate: 87 bpm BP: 144 / 66 mmHg Plastic Eye Technician: SHIRA Referring MD: Blair Bermeo MD Symptoms: Afib Study Quality: Adequate ECG Rhythm: Sinus Conclusions: - Normal left ventricular cavity size. There is mildly increased left ventricular wall thickness. The left ventricular systolic function is hyperdynamic. The visually estimated ejection fraction is >70%. - Diastolic function is normal for age. - Mildly increased right ventricular cavity size. There is normal right ventricular systolic function. - The right atrium is mildly dilated. - Mildly elevated right atrial pressure. Findings Left Ventricle Normal left ventricular cavity size. There is mildly increased left ventricular wall thickness. The left ventricular systolic function is hyperdynamic. The visually estimated ejection fraction is >70%. There is no evidence of regional wall motion abnormalities. Diastolic function is normal for age. Right Ventricle Mildly increased right ventricular cavity size. There is normal right ventricular systolic function. Atria The left atrium is normal in size. The right atrium is mildly dilated. Aortic Valve Normal aortic valve structure and function. There is no aortic valve stenosis. There is no aortic valve regurgitation. Mitral Valve Normal mitral valve structure and function. There is no mitral valve regurgitation. There is no mitral valve stenosis. Pulmonic Valve The pulmonic valve is likely normal. There is no pulmonic valve regurgitation. Tricuspid Valve Normal tricuspid valve structure and function. There is trace tricuspid valve regurgitation. Mildly elevated right atrial pressure. There is no evidence of pulmonary hypertension. Great Vessels All visible segments of the aorta are normal in size. Venous The inferior vena cava is dilated and collapses greater than 50% with inspiration. Pericardium/Pleural There is no evidence of pericardial effusion. Measurements 2D Linear Measurements IVSd: 1.03 0.6-0.9/0.6-1.0 cm LVIDd: 3.93 3.9-5.3/4.2-5.9 cm LVIDd Index: 1.90 2.4-3.2/2.2-3.1 cm/m2 LVIDs: 2.28 2.0-3.6 cm LVPWd: 1.03 0.7-1.1 cm LA Diam: 3.90 2.7-3.8/3.0-4.0 cm LAIDs Index: 1.88 1.5-2.3 cm/m2 LV Mass: 160.39 67-162/88-224 g LV Mass Index: 77.48 43-95/49-115 g/m2 LVOT Diam: 2.10 3.0+(-)1.3 cm 2D Systolic Function EF 4C: 67.80 >55% Mitral Valve MV Pk E: 1.01 MV PK A: 0.67 MV Decel Time: 139.00 E/A: 1.50 E'Lateral: 9.57 E'Medial: 10.30 E/E' Med: 9.80 E/E' Lat: 10.60 PHT: 41.00 MVA PHT: 5.37 Decel [place]: 7.24 Aortic Valve AoV Pk Harrison: 1.40 AoV Mn Harrison: 0.95 AoV VTI: 0.31 AoV Pk Grad: 8.00 Aov Mn Grad: 4.00 DUNIA Cont.VTI: 2.72 LVOT LVOT Pk Harrison: 1.08 LVOT Mn Harrison: 0.74 LVOT VTI: 0.24 LVOT Pk Grad: 5.00 LVOT Mn Grad: 3.00 LVOT Diam: 2.10 LVOT Area: 3.46 Diastolic Function MV Pk E: 1.01 MV Pk A: 0.67 E/A: 1.50 E'Medial: 10.30 E/E' Med: 9.80 E' Laterial: 9.57 E/E' Lat: 10.60 Right Ventricle TAPSE (mm): 18.00 TVS' Harrison: 15.20 Tricuspid Valve TR Pk Harrison: 2.44 TR Pk Grad: 24.00 RA Press: 8.00 RVSP: 32.00 Great Vessels Aorta Sinus of Valsalva: 3.00 2.0-3.5 cm Ao Asc: 3.10 2.1-3.4 cm Pulmonary Valve PV Pk Harrison: 0.85 Peak PV Grad: 3.00 Updated in Other Vendor System with Status of Final Andrea Galarza MD electronically signed on 08/26/2022 1:06:03 PM with status of Final
[2022-08-26 07:41] VITALS: BP 144/66; PULSE 83; RESP 16; TEMP 36.6; O2SAT 93
[2022-08-26] MEDS: 0.9 % Sodium Chloride Flush 3 ML SYRINGE IVFLUSH (08:22)
[2022-08-26] MEDS: Apixaban 5 MG TABLET PO (08:22)
--- NOTE | 2022-08-26 10:52 | MHC.CM.PN ---
Met with patient in regards to discharge planning. Patient lives with her , ambulates independently and had no services prior to coming to the hospital No services anticipated to be needed because patient is not home bound. PCP verified. Patient denies having a HCP. Information provided. Patient not interested in completing one at this time. Patient received 3 Pfizer vaccines. Patient's vehicle is in the parking lot and she will transport herself home when medically stable. Continue to monitor for d/c needs.
--- NOTE | 2022-08-26 11:21 | HO.PM.IMPN ---
Subjective Subjective Date of Service: 08/26/22 Review of Systems Follow-up new onset atrial fibrillation Denies chest pain, shortness breath Sitting up in bed comfortable Physical Exam Vital Signs: Vital Signs: Last Vital Signs Temp 97.9 F 08/26/22 07:41 Pulse 83 08/26/22 07:41 Resp 16 08/26/22 07:41 BP 144/66 H 08/26/22 07:41 Pulse Ox 93 08/26/22 07:41 O2 Del Method 08/26/22 07:41 BMI result Body Mass Index 46.6 Appearing in no acute distressd lung sounds are clear to auscultation heart regular rate rhythm, clear S1, S2 positive bowel sounds, abdomen is soft, nontender neuro patient is alert x3, no focal deficits Objective Data Active Medications Acetaminophen (Acetaminophen 325 Mg Tablet) 650 mg PO Q6H PRN PRN Reason: Pain, Mild (Pain Scale 1-3) Apixaban (Apixaban 5 Mg Tablet) 5 mg PO BID [facility] Last Admin: 08/26/22 08:22 Dose: 5 mg Documented By: HERMANN Diltiazem HCl 125 mg/ Sodium (Chloride) 125 mls @ 0 mls/hr IVCONT .Q0M [facility]; Protocol Last Titration: 08/26/22 03:11 Dose: 0 mg/hr, 0 mls/hr Documented By: EUSEBIODENAlonso Levothyroxine Sodium (Levothyroxine Sodium 125 Mcg Tablet) 125 mcg PO DAILY@0600 [facility] Last Admin: 08/26/22 06:32 Dose: 125 mcg Documented By: HERMANN Melatonin (Melatonin 3 Mg Tablet) 6 mg PO BEDTIME PRN PRN Reason: Insomnia Omeprazole (Omeprazole 20 Mg Capsule.Dr) 20 mg PO DAILY PRN PRN Reason: GERD Pharmacy Consult (Consult Rx Perform Med Rec) 1 each MISCELLANE ONCE PRN PRN Reason: Consult order Senna (Sennosides 8.6 Mg Tablet) 17.2 mg PO BEDTIME PRN PRN Reason: Constipation Sodium Chloride (0.9 % Sodium Chloride Flush 3 Ml Syringe) 3 ml IVFLUSH QSHIFT [facility] Last Admin: 08/26/22 08:22 Dose: 3 ml Documented By: HERMANN Labs CBC & Chem 7: 08/26/22 04:03 08/26/22 04:03 Labs: Laboratory Results - last 24 hr 08/25/22 08/25/22 08/25/22 13:29 13:29 13:29 MCV 84.9 Cancelled MCH 26.3 L Cancelled MCHC 31.0 Cancelled RDW 14.3 Cancelled Plt Count 284 Cancelled MPV 9.8 Cancelled Immature Gran % (Auto) 0.4 Cancelled Neut % (Auto) 67.4 Cancelled Lymph % (Auto) 21.0 Cancelled [place] % (Auto) 5.8 Cancelled Eos % (Auto) 5.0 H Cancelled Baso % (Auto) 0.4 Cancelled Lymph # (Auto) 2.6 Cancelled [place] # (Auto) 0.7 Cancelled Eos # (Auto) 0.6 H Cancelled Baso # (Auto) 0.1 Cancelled Abs Immat Gran (auto) 0.05 H Cancelled Absolute Neuts (auto) 8.3 Cancelled Absolute Nucleated RBC 0.000 Cancelled Nucleated RBC % (auto) 0.0 Cancelled PT INR D-Dimer High Sensitivty Anion Gap 17 Estim Creat Clear Calc 80.5 Estimated GFR > 60 Random Glucose 114 Calcium 9.5 D Magnesium Total Bilirubin Direct Bilirubin AST ALT Alkaline Phosphatase B-Natriuretic Peptide Total Protein Albumin TSH Free T4 COVID-19 (KELVIN) COVID-[employer] 08/25/22 08/25/22 08/25/22 13:29 13:29 13:29 MCV MCH MCHC RDW Plt Count MPV Immature Gran % (Auto) Neut % (Auto) Lymph % (Auto) [place] % (Auto) Eos % (Auto) Baso % (Auto) Lymph # (Auto) [place] # (Auto) Eos # (Auto) Baso # (Auto) Abs Immat Gran (auto) Absolute Neuts (auto) Absolute Nucleated RBC Nucleated RBC % (auto) PT 11.2 INR 1.0 D-Dimer High Sensitivty 228 Anion Gap 16 Estim Creat Clear Calc 80.5 Estimated GFR > 60 Random Glucose 115 Calcium 9.5 Magnesium 2.0 Total Bilirubin 0.3 Direct Bilirubin 0.2 AST 15 ALT 13 Alkaline Phosphatase 87 B-Natriuretic Peptide 86 Total Protein 7.3 Albumin 4.2 TSH Free T4 COVID-19 (KELVIN) COVID-[employer] 08/25/22 08/25/22 08/25/22 13:29 16:43 22:08 MCV MCH MCHC RDW Plt Count MPV Immature Gran % (Auto) Neut % (Auto) Lymph % (Auto) [place] % (Auto) Eos % (Auto) Baso % (Auto) Lymph # (Auto) [place] # (Auto) Eos # (Auto) Baso # (Auto) Abs Immat Gran (auto) Absolute Neuts (auto) Absolute Nucleated RBC Nucleated RBC % (auto) PT INR D-Dimer High Sensitivty 204 Anion Gap Estim Creat Clear Calc Estimated GFR Random Glucose Calcium Magnesium Total Bilirubin Direct Bilirubin AST ALT Alkaline Phosphatase B-Natriuretic Peptide Total Protein Albumin TSH 0.11 L Free T4 1.44 COVID-19 (KELVIN) Negative COVID-19 Clin Com See Note 08/26/22 08/26/22 04:03 04:03 MCV 85.4 MCH 26.0 L MCHC 30.4 L RDW 14.4 Plt Count 254 MPV 9.7 Immature Gran % (Auto) 0.4 Neut % (Auto) 63.4 Lymph % (Auto) 25.6 [place] % (Auto) 5.3 Eos % (Auto) 4.9 H Baso % (Auto) 0.4 Lymph # (Auto) 2.9 [place] # (Auto) 0.6 Eos # (Auto) 0.6 H Baso # (Auto) 0.0 Abs Immat Gran (auto) 0.04 H Absolute Neuts (auto) 7.1 Absolute Nucleated RBC 0.000 Nucleated RBC % (auto) 0.0 PT INR D-Dimer High Sensitivty Anion Gap 19 Estim Creat Clear Calc 89.0 Estimated GFR > 60 Random Glucose 110 Calcium 9.1 Magnesium Total Bilirubin Direct Bilirubin AST ALT Alkaline Phosphatase B-Natriuretic Peptide Total Protein Albumin TSH Free T4 COVID-19 (KELVIN) COVID-19 Clin Com Assessment and Plan Plan 62-year-old female with a past medical history of hypertension, history of thyroid cancer, stenosis, obstructive sleep apnea, hypothyroidism, anxiety, depression, GERD, obesity presented to the hospital today with a chief complaint of shortness of breath/chest discomfort/palpitations.? Noted to have new onset AFib with rapid ventricular response.? Admitted for further management.? New onset AFib with rapid ventricular response Possibly related to hypertension Patient started on diltiazem drip, has since converted to normal sinus rhythm Will hold home atenolol/olmesartan/hydrochlorothiazide to provide room for blood pressure Patient chart Vasc score is 2 continue Eliquis Eliquis.? Echocardiogram pending Cardiology aware of the patient Will need outpatient stress test Chest discomfort/shortness of breath/dyspnea on exertion Likely in the setting of AFib.? D-dimer negative troponin within normal limits No ischemic changes noted on EKG History of hypothyroidism Patient TSH noted to be 0.11.? Free T4 within normal limits.? Continue home levothyroxine History of GERD Continue PPI DVT prophylaxis:? Patient on Eliquis Attending Dr. Montelongo Code status: Full code Quality Stroke Does the patient have a stroke diagnosis?: No VTE Prior VTE?: No VTE Risk Level:: Medical - moderate - high VTE Device Contraindication: Treatment Not Indicated VTE Drug Contraindication: N/A - Med Ordered
[2022-08-26 13:07] VITALS: BP 166/67; PULSE 94; RESP 18; TEMP 36.7; O2SAT 94
--- NOTE | 2022-08-26 13:07 | P.CONCA_ITS ---
History of Present Illness History of Present Illness Date of Service: 08/26/22 Requesting physician: Sugey Reinoso Chief complaint: Rapid afib Narrative: Pleasant 62-year-old female who is presenting for palpitations and AFib with RVR. She has background history of hypertension and sleep apnea. She recently started using CPAP. She has chronic dyspnea on exertion. No chest discomfort. She was started on Cardizem drip overnight and then reverted back to sinus rhythm. She was started on Eliquis for anticoagulation. Overall doing well at this stage in sinus rhythm. [facility] Past Medical History Medical History Acid reflux Depression with anxiety Hypertension Hypothyroid Kidney stone Knee pain, left QAMAR (obstructive sleep apnea) Osteoporosis Thyroid cancer Urethral stenosis Family History Family History Mother Lung cancer Father HTN (hypertension) Melanoma Surgical History Surgical History H/O colonoscopy History of partial hysterectomy History of thyroidectomy Social History Social History Housing: House Alcohol intake: current Alcohol intake frequency: holidays/special occasions only Patient Tobacco Use Status: Never used Tobacco e-Cigarette/Vaping Use: Never Used Use of substances other than those prescribed or required for medical reasons: No Advance Directives: No Advance Directives Information Provided: Yes service: No Current occupational status: unemployed Current occupation: right handed Cognitive needs: No Hearing needs: No Vision needs: Yes Meds Allergies Allergy/AdvReac Type Severity Reaction Status Date / Time lisinopril [LISINOPRIL] Allergy Unknown HIVES, rash Verified 08/25/22 10:11 BANDAIDS Allergy Unknown ITCHY, RASH Uncoded 08/25/22 10:11 e-mycin Allergy Unknown abd pain Uncoded 08/25/22 10:11 Erythromycin Allergy Unknown stomach Uncoded 08/25/22 10:11 upset From ERYTHROCIN Allergy Unknown ABDOMINAL Uncoded 08/25/22 10:11 PAIN lisinopril Allergy Unknown rash Uncoded 08/25/22 10:11 Active Medications: Current Medications Acetaminophen (Acetaminophen 325 Mg Tablet) 650 mg PO Q6H PRN PRN Reason: Pain, Mild (Pain Scale 1-3) Apixaban (Apixaban 5 Mg Tablet) 5 mg PO BID [facility] Last Admin: 08/26/22 08:22 Dose: 5 mg Levothyroxine Sodium (Levothyroxine Sodium 125 Mcg Tablet) 125 mcg PO DAILY@0600 [facility] Last Admin: 08/26/22 06:32 Dose: 125 mcg Melatonin (Melatonin 3 Mg Tablet) 6 mg PO BEDTIME PRN PRN Reason: Insomnia Omeprazole (Omeprazole 20 Mg Capsule.) 20 mg PO DAILY PRN PRN Reason: GERD Pharmacy Consult (Consult Rx Perform Med Rec) 1 each MISCELLANE ONCE PRN PRN Reason: Consult order Senna (Sennosides 8.6 Mg Tablet) 17.2 mg PO BEDTIME PRN PRN Reason: Constipation Sodium Chloride (0.9 % Sodium Chloride Flush 3 Ml Syringe) 3 ml IVFLUSH QSHIFT [facility] Last Admin: 08/26/22 08:22 Dose: 3 ml Home Medications Medication Instructions Recorded Confirmed Last Taken Type cholecalciferol (vitamin D3) 50 50 mcg PO DAILY 10/03/20 08/25/22 08/25/22 History mcg (2,000 unit) capsule levothyroxine 125 mcg tablet 125 mcg PO DAILY 08/25/22 08/25/22 08/25/22 History omeprazole 20 mg capsule,delayed 20 mg PO DAILY PRN GERD 08/25/22 08/25/22 Unknown History release Physical Exam Vital Signs: Vital Signs: Last Vital Signs Temp 97.9 F 08/26/22 07:41 Pulse 83 08/26/22 07:41 Resp 16 08/26/22 07:41 BP 144/66 H 08/26/22 07:41 Pulse Ox 93 08/26/22 07:41 O2 Del Method 08/26/22 07:41 BMI result Body Mass Index 46.6 GENERAL APPEARANCE: in no acute distress, pleasant. NECK: no carotid bruit, mild jugular venous distention. SKIN: no suspicious lesions, warm and dry. HEART: no murmurs, regular rate and rhythm. LUNGS: clear to auscultation bilaterally. ABDOMEN: soft, nontender. EXTREMITIES: no edema. PERIPHERAL PULSES: equal. NEUROLOGIC: No gross deficits, AAO X 3 Objective Labs and Meds Result diagrams: 08/26/22 04:03 08/26/22 04:03 Lab results: Laboratory Results - last 24 hr 08/25/22 08/25/22 08/25/22 13:29 13:29 13:29 WBC 12.3 H Cancelled RBC 5.24 Cancelled Hgb 13.8 Cancelled Hct 44.5 Cancelled MCV 84.9 Cancelled MCH 26.3 L Cancelled MCHC 31.0 Cancelled RDW 14.3 Cancelled Plt Count 284 Cancelled MPV 9.8 Cancelled Immature Gran % (Auto) 0.4 Cancelled Neut % (Auto) 67.4 Cancelled Lymph % (Auto) 21.0 Cancelled [place] % (Auto) 5.8 Cancelled Eos % (Auto) 5.0 H Cancelled Baso % (Auto) 0.4 Cancelled Lymph # (Auto) 2.6 Cancelled [place] # (Auto) 0.7 Cancelled Eos # (Auto) 0.6 H Cancelled Baso # (Auto) 0.1 Cancelled Abs Immat Gran (auto) 0.05 H Cancelled Absolute Neuts (auto) 8.3 Cancelled Absolute Nucleated RBC 0.000 Cancelled Nucleated RBC % (auto) 0.0 Cancelled PT INR D-Dimer High Sensitivty Sodium 143 Potassium 4.7 Chloride 102 Carbon Dioxide 29 Anion Gap 17 BUN 18 H Creatinine 0.84 Estim Creat Clear Calc 80.5 Estimated GFR > 60 Random Glucose 114 Calcium 9.5 D Magnesium Total Bilirubin Direct Bilirubin AST ALT Alkaline Phosphatase Troponin I High Sens B-Natriuretic Peptide Total Protein Albumin TSH Free T4 COVID-19 (KELVIN) COVID-19 Clin Com 08/25/22 08/25/22 08/25/22 13:29 13:29 13:29 WBC RBC Hgb Hct MCV MCH MCHC RDW Plt Count MPV Immature Gran % (Auto) Neut % (Auto) Lymph % (Auto) [place] % (Auto) Eos % (Auto) Baso % (Auto) Lymph # (Auto) [place] # (Auto) Eos # (Auto) Baso # (Auto) Abs Immat Gran (auto) Absolute Neuts (auto) Absolute Nucleated RBC Nucleated RBC % (auto) PT 11.2 INR 1.0 D-Dimer High Sensitivty 228 Sodium 143 Potassium 4.5 Chloride 102 Carbon Dioxide 30 H Anion Gap 16 BUN 18 H Creatinine 0.84 Estim Creat Clear Calc 80.5 Estimated GFR > 60 Random Glucose 115 Calcium 9.5 Magnesium 2.0 Total Bilirubin 0.3 Direct Bilirubin 0.2 AST 15 ALT 13 Alkaline Phosphatase 87 Troponin I High Sens Cancelled B-Natriuretic Peptide Total Protein 7.3 Albumin 4.2 TSH Free T4 COVID-19 (KELVIN) COVID-19 Clin Com 08/25/22 08/25/22 08/25/22 13:29 13:29 16:43 WBC RBC Hgb Hct MCV MCH MCHC RDW Plt Count MPV Immature Gran % (Auto) Neut % (Auto) Lymph % (Auto) [place] % (Auto) Eos % (Auto) Baso % (Auto) Lymph # (Auto) [place] # (Auto) Eos # (Auto) Baso # (Auto) Abs Immat Gran (auto) Absolute Neuts (auto) Absolute Nucleated RBC Nucleated RBC % (auto) PT INR D-Dimer High Sensitivty Sodium Potassium Chloride Carbon Dioxide Anion Gap BUN Creatinine Estim Creat Clear Calc Estimated GFR Random Glucose Calcium Magnesium Total Bilirubin Direct Bilirubin AST ALT Alkaline Phosphatase Troponin I High Sens < 3.5 B-Natriuretic Peptide 86 Total Protein Albumin TSH 0.11 L Free T4 1.44 COVID-19 (KELVIN) Negative COVID-19 Clin Com See Note 08/25/22 08/26/22 08/26/22 22:08 04:03 04:03 WBC 11.1 H RBC 4.81 Hgb 12.5 Hct 41.1 MCV 85.4 MCH 26.0 L MCHC 30.4 L RDW 14.4 Plt Count 254 MPV 9.7 Immature Gran % (Auto) 0.4 Neut % (Auto) 63.4 Lymph % (Auto) 25.6 [place] % (Auto) 5.3 Eos % (Auto) 4.9 H Baso % (Auto) 0.4 Lymph # (Auto) 2.9 [place] # (Auto) 0.6 Eos # (Auto) 0.6 H Baso # (Auto) 0.0 Abs Immat Gran (auto) 0.04 H Absolute Neuts (auto) 7.1 Absolute Nucleated RBC 0.000 Nucleated RBC % (auto) 0.0 PT INR D-Dimer High Sensitivty 204 Sodium 145 Potassium 4.1 Chloride 105 Carbon Dioxide 25 Anion Gap 19 BUN 16 Creatinine 0.76 Estim Creat Clear Calc 89.0 Estimated GFR > 60 Random Glucose 110 Calcium 9.1 Magnesium Total Bilirubin Direct Bilirubin AST ALT Alkaline Phosphatase Troponin I High Sens B-Natriuretic Peptide Total Protein Albumin TSH Free T4 COVID-19 (KELVIN) COVID-19 Clin Com Imaging Radiologist's impression: Impressions Chest X-Ray 08/25/22 13:49 IMPRESSION: -No pneumothorax or pleural reaction. Heart size normal. -No lobar or segmental airspace consolidation. -Probable areolar tissue left lateral base. Cannot exclude subsegmental atelectasis. Assessment and Plan (1) A-fib: Status: Acute (2) Hypertension: Status: Acute Plan Pleasant 62-year-old female who is presenting for AFib with RVR. She has hype rtension and obstructive sleep apnea. QAMAR is a well known trigger for atrial fibrillation. She started using the CPAP mask recently. She has reverted back to sinus rhythm spontaneously. Continue atenolol and agree with starting her on Eliquis for anticoagulation. We will arrange an exercise stress test for her as outpatient. If stress test is normal then we will try pill in the pocket approach with flecainide. Thank you for allowing me to participate in the care of your patient. Please feel free to contact me if you have any questions. Procedures Date of Service Date of Service: 08/26/22
--- NOTE | 2022-08-26 13:08 | PC.NURSE ---
patient a&ox3, vss, manager monitoring intact nsr 90s, call wynne within reach, will continue to monitor
--- NOTE | 2022-08-26 13:12 | P.DS_ITS ---
DS: Providers Provider Date of Service: 08/26/22 Date of admission: 08/25/22 19:25 Primary care physician: Amita Ruiz MD Consults: 08/25/22 19:25 Consult to Cardiology Routine Consulting Provider: Andrea Galarza Reason for consultation: Afib with RVR Attending physician on discharge: Abdifatah Montelongo Discharging clinician: Sugey Reinoso DS: Diagnosis Discharge Diagnosis (1) A-fib: Status: Acute (2) Hypertension: Status: Acute DS: Summary Hospital Course Hospital Course: History physical as per admitting provider 62-year-old female with a past medical history of hypertension, history of thyroid cancer, stenosis, obstructive sleep apnea, hypothyroidism, anxiety, depression, GERD, obesity presented to the hospital today with a chief complaint of shortness of breath.?Patient mentions that for the past 2 weeks he has been having shortness of breath especially on exertion.? Lately she also noticed mild chest discomfort/palpitations.? Patient had an EKG done as outpatient and noted to have new onset AFib with rapid ventricular response; subsequently also to go to the ER for further evaluation.? Patient mentions on presentation her heart rate was in 140s.? Denies any numbness tingling or focal weakness.? Denies any falls or trauma.? Denies any recent travel or sick contacts.? Denies any GI symptoms.?Review of all other systems is negative except mentioned above. ER course: Per ER team patient on presentation noted to be in rapid AFib with heart rate in 140s; new onset AFib.? Discussed with Cardiology-day recommended to start the patient on Cardizem drip.? Patient's EKG was nonischemic.? Troponin was negative.? Admitted for further management New onset AFib with rapid ventricular response Possibly related to hypertension Patient started on diltiazem drip, has since converted to normal sinus rhythm Patient chart Vasc score is 2 continue Eliquis Eliquis.? Echocardiogram with normal LVEF Will need outpatient stress test Chest discomfort/shortness of breath/dyspnea on exertion Likely in the setting of AFib.? D-dimer negative troponin within normal limits No ischemic changes noted on EKG History of hypothyroidism Patient TSH noted to be 0.11.? Free T4 within normal limits.? Continue home levothyroxine History of GERD Continue PPI Time Spent with Patient Time attestation: Total time spent providing and/or coordinating discharge services: Discharge coordination time: Greater than 30 minutes Quality: Safe Use of Opioids Does Pt have an Active Cancer Diagnosis on the Problem List?: No Quality: Stroke Does the patient have a stroke diagnosis?: No Physical Exam Vital Signs: Vital Signs: Last Vital Signs Temp 98.0 F 08/26/22 13:07 Pulse 94 08/26/22 13:07 Resp 18 08/26/22 13:07 BP 166/67 H 08/26/22 13:07 Pulse Ox 94 08/26/22 13:07 O2 Del Method 08/26/22 13:07 BMI result Body Mass Index 46.6 Appearing in no acute distress head is normocephalic atraumatic eyes pupils are PERRLA sclera is anicteric mouth throat mucous membranes are intact and moist neck is supple no lymphadenopathy, no JVD noted lung sounds are clear to auscultation heart regular rate rhythm, clear S1, S2 positive bowel sounds, abdomen is soft, nontender neuro patient is alert x3, no focal deficits DS: Data Data Completed and Pending Labs on day of discharge: Laboratory Results - last 24 hr 08/25/22 08/25/22 08/25/22 13:29 13:29 13:29 WBC 12.3 H Cancelled RBC 5.24 Cancelled Hgb 13.8 Cancelled Hct 44.5 Cancelled MCV 84.9 Cancelled MCH 26.3 L Cancelled MCHC 31.0 Cancelled RDW 14.3 Cancelled Plt Count 284 Cancelled MPV 9.8 Cancelled Immature Gran % (Auto) 0.4 Cancelled Neut % (Auto) 67.4 Cancelled Lymph % (Auto) 21.0 Cancelled Brown % (Auto) 5.8 Cancelled Eos % (Auto) 5.0 H Cancelled Baso % (Auto) 0.4 Cancelled Lymph # (Auto) 2.6 Cancelled Brown # (Auto) 0.7 Cancelled Eos # (Auto) 0.6 H Cancelled Baso # (Auto) 0.1 Cancelled Abs Immat Gran (auto) 0.05 H Cancelled Absolute Neuts (auto) 8.3 Cancelled Absolute Nucleated RBC 0.000 Cancelled Nucleated RBC % (auto) 0.0 Cancelled PT INR D-Dimer High Sensitivty Sodium 143 Potassium 4.7 Chloride 102 Carbon Dioxide 29 Anion Gap 17 BUN 18 H Creatinine 0.84 Estim Creat Clear Calc 80.5 Estimated GFR > 60 Random Glucose 114 Calcium 9.5 D Magnesium Total Bilirubin Direct Bilirubin AST ALT Alkaline Phosphatase Troponin I High Sens B-Natriuretic Peptide Total Protein Albumin TSH Free T4 COVID-19 (KELVIN) COVID-19 20/20 [employer] 08/25/22 08/25/22 08/25/22 13:29 13:29 13:29 WBC RBC Hgb Hct MCV MCH MCHC RDW Plt Count MPV Immature Gran % (Auto) Neut % (Auto) Lymph % (Auto) Brown % (Auto) Eos % (Auto) Baso % (Auto) Lymph # (Auto) Brown # (Auto) Eos # (Auto) Baso # (Auto) Abs Immat Gran (auto) Absolute Neuts (auto) Absolute Nucleated RBC Nucleated RBC % (auto) PT 11.2 INR 1.0 D-Dimer High Sensitivty 228 Sodium 143 Potassium 4.5 Chloride 102 Carbon Dioxide 30 H Anion Gap 16 BUN 18 H Creatinine 0.84 Estim Creat Clear Calc 80.5 Estimated GFR > 60 Random Glucose 115 Calcium 9.5 Magnesium 2.0 Total Bilirubin 0.3 Direct Bilirubin 0.2 AST 15 ALT 13 Alkaline Phosphatase 87 Troponin I High Sens Cancelled B-Natriuretic Peptide Total Protein 7.3 Albumin 4.2 TSH Free T4 COVID-19 (KELVIN) [employer] 08/25/22 08/25/22 08/25/22 13:29 13:29 16:43 WBC RBC Hgb Hct MCV MCH MCHC RDW Plt Count MPV Immature Gran % (Auto) Neut % (Auto) Lymph % (Auto) Brown % (Auto) Eos % (Auto) Baso % (Auto) Lymph # (Auto) Brown # (Auto) Eos # (Auto) Baso # (Auto) Abs Immat Gran (auto) Absolute Neuts (auto) Absolute Nucleated RBC Nucleated RBC % (auto) PT INR D-Dimer High Sensitivty Sodium Potassium Chloride Carbon Dioxide Anion Gap BUN Creatinine Estim Creat Clear Calc Estimated GFR Random Glucose Calcium Magnesium Total Bilirubin Direct Bilirubin AST ALT Alkaline Phosphatase Troponin I High Sens < 3.5 B-Natriuretic Peptide 86 Total Protein Albumin TSH 0.11 L Free T4 1.44 COVID-19 (KELVIN) Negative [employer] See Note 08/25/22 08/26/22 08/26/22 22:08 04:03 04:03 WBC 11.1 H RBC 4.81 Hgb 12.5 Hct 41.1 MCV 85.4 MCH 26.0 L MCHC 30.4 L RDW 14.4 Plt Count 254 MPV 9.7 Immature Gran % (Auto) 0.4 Neut % (Auto) 63.4 Lymph % (Auto) 25.6 Brown % (Auto) 5.3 Eos % (Auto) 4.9 H Baso % (Auto) 0.4 Lymph # (Auto) 2.9 Brown # (Auto) 0.6 Eos # (Auto) 0.6 H Baso # (Auto) 0.0 Abs Immat Gran (auto) 0.04 H Absolute Neuts (auto) 7.1 Absolute Nucleated RBC 0.000 Nucleated RBC % (auto) 0.0 PT INR D-Dimer High Sensitivty 204 Sodium 145 Potassium 4.1 Chloride 105 Carbon Dioxide 25 Anion Gap 19 BUN 16 Creatinine 0.76 Estim Creat Clear Calc 89.0 Estimated GFR > 60 Random Glucose 110 Calcium 9.1 Magnesium Total Bilirubin Direct Bilirubin AST ALT Alkaline Phosphatase Troponin I High Sens B-Natriuretic Peptide Total Protein Albumin TSH Free T4 COVID-19 (KELVIN) COVID-19 Clin Com Discharge Plan Discharge Anticipated Discharge Date/Time: 08/26/22 13:09 Patient Disposition: Home, Self-Care Discharge Diagnosis: New onset atrial fibrillation Referrals: Amita Ruiz MD [Primary Care Provider] - 1 Week Andrea Galarza MD [Physician] - 1 Week (Outpatient stress test) Discharge Medications: New Eliquis 5 mg Tablet 5 mg PO BID Qty: 60 0RF Continued levothyroxine 125 mcg tablet 125 mcg PO DAILY omeprazole 20 mg capsule,delayed release(DR/EC) 20 mg PO DAILY PRN (Reason: GERD) cholecalciferol (vitamin D3) 50 mcg (2,000 unit) capsule 50 mcg PO DAILY olmesartan-hydrochlorothiazide 40-25 mg tablet 1 tab PO DAILY Qty: 90 3RF atenolol 100 mg tablet 100 mg PO DAILY Qty: 90 3RF Discharge Orders: Discharge Order (Routine); Ordered 08/26/22 Ordered By: Sugey Reinoso Diet: Advance to usual diet Activity on Discharge: As tolerated Stand Alone Forms: Patient Portal Discharge page Care Plan Goals: No further episodes of atrial fibrillation Health Concerns: New onset atrial fibrillation Plan of Treatment: Follow-up with appointment for outpatient stress test with Cardiology office Take all medications as prescribed Assessment: See discharge summary
[2022-08-26] MEDS: Furosemide 20 MG TABLET PO (13:35)
--- NOTE | 2022-08-26 13:37 | PC.NURSE ---
Pt was given furosemide, Pt V/S are within the normal limit. Pt is on the the telemetry and it showed a-fib but went back to NSR. Will continue to monitor. Will continue to monitor.
== END 2022-08-26 14:40 | disposition home or self-care (01) | DRG 310 ==
LOC: HO.ED 18:14 → HO.EDOVER 20:10
PROVIDERS: Admitting Provider Hospitalist; Emergency Provider Emergency Medicine; PCP Internal Medicine; Visit Provider Nurse Practitioner Acute Care
DX: I48.91 Unspecified atrial fibrillation (principal); K21.9 Gastro-esophageal reflux disease without esophagitis; F41.8 Other specified anxiety disorders; E03.9 Hypothyroidism, unspecified; I10 Essential (primary) hypertension; G47.33 Obstructive sleep apnea (adult) (pediatric); Z20.822 Contact with and (suspected) exposure to COVID-19; Z85.850 Personal history of malignant neoplasm of thyroid; Z88.8 Allergy status to other drugs, medicaments and biological substances; Z79.890 Hormone replacement therapy; Z79.899 Other long term (current) drug therapy
CPT/HCPCS: 36415; 71045; 80048; 80076; 83735; 83880; 84439; 84443; 84484; 85025; 85379; 85610; 87635; 93005; 93306; 96361; 96365; 96366; 96375; 99219; 99285; J0610; Q9957

== ENCOUNTER → 2022-09-02 08:52 | Outpatient (REF) | payer OTHER, SELFPAY ==
--- NOTE | ~2022-09-02 | NM_ITS ---
Lexiscan Myocardial perfusion study Indication: Abnormal EKG, assess for coronary disease and ischemia Technique: The patient was brought in for a Lexiscan perfusion study on 09/01/2022 and was injected 0.4 mg of Lexiscan intravenously. Within a minute of this injection 40 mCi of sestamibi was given intravenously. Images were obtained using the SPECT gamma camera interlaced with the gating device. Images were obtained in supine position. Resting perfusion study was performed on 09/03/2022. Patient was administered 40 mCi of sestamibi intravenously at rest. Images were then obtained in supine position. Total DLP 149mGy-cm. Images were processed with the software and compared side to side in short axis, horizontal long axis and vertical long axis views. Findings: Raw acquisition reviewed. The stress perfusion study showed no significant perfusion abnormality. Both uncorrected as well as CT attenuation corrected images were reviewed. The gated study shows normal LV systolic function with calculated LVEF of 59%. LV cavity is normal in size. The gated study shows normal wall thickening and contraction of segments. Resting study shows no significant perfusion abnormality. Gating at rest reveals normal wall motion with ejection fraction at 71%. The findings are consistent with no clear reversible or fixed perfusion defects. NM/NM shiva perf SPECT rest & str Impression: 1. Myocardial perfusion imaging study shows likely normal myocardial perfusion. No definitive evidence of ischemia or infarction. 2. Gated LVEF is 59% during stress and 71% during rest. 3. Transient ischemic dilatation not present. EKG component of the test reported separately.
--- NOTE | 2022-09-02 08:56 | CA_ITS ---
Acquisition Time: 2022-09-02 09:11:09 Total Exercise Time: 00:03:06 Test Indications: ABN EKG Medications: SEE CHART Protocol: MALCOM Max HR: 126 BPM 79% of Pred: 158 BPM Max BP: 202/096 mmHG Max Work Load: 4.7 METS Exercise stress test with exercise 3 min 6 sec of Malcom protocol with request to stop due to moderate sob and inability to keep up with speed of stage 2, No CP, with hypertensive response to exercise with max BP 202/96, with nondiagnostic EKG for ischemia due to suboptimal heart rate. Pt assisted to sitting position and once BP improved, testing was changed to a pharmacological stress test with Lexiscan injection, while sitting and kicking her legs, without anginal symptoms, without arrythmia, with normotensive response to injection, with nondiagnostic EKG for ischemia. In recovery she was treated with Aminophylline 75mg IVP to reverse Lexiscan. Nuclear images pending. Test reviewed with Dr Phoenix Referred By: Andrea Galarza Overread By: MORGAN LAIRD
== END ==
LOC: HO.CARD 08:52
PROVIDERS: Visit Provider Internal Medicine Cardiovascular Disease
DX: I48.91 Unspecified atrial fibrillation (principal)
CPT/HCPCS: 78452; 93017; A9500; J0280; J2785

== ENCOUNTER 2022-10-16 11:38 | Outpatient (REF) | payer OTHER, SELFPAY ==
--- NOTE | ~2022-10-16 | XR_ITS ---
EXAMINATION: XR HIP, LEFT CLINICAL INFORMATION: Pain COMPARISON: Previous x-ray January 2021 TECHNIQUE: Two views of the left hip. FINDINGS: Bone alignment is normal. No fracture or dislocation. Normal joint space. Normal soft tissues. XR/XR hip LT min 2V IMPRESSION: Normal left hip.
== END 2022-10-16 11:39 | disposition home or self-care (01) ==
LOC: HO.HMGCX 11:38
PROVIDERS: PCP Internal Medicine; Visit Provider Internal Medicine
DX: M25.552 Pain in left hip (principal)
CPT/HCPCS: 73502

== ENCOUNTER → 2022-11-05 11:05 | Outpatient (BNVA) | payer OTHER, SELFPAY | PROVIDERS: PCP Internal Medicine; Referring Provider Internal Medicine; Visit Provider Internal Medicine Cardiovascular Disease | DX: I48.91 Unspecified atrial fibrillation (principal); I10 Essential (primary) hypertension | CPT/HCPCS: 93005 ==

== ENCOUNTER 2023-03-29 13:27 | Outpatient (REF) | payer OTHER, SELFPAY ==
[2023-03-29 16:31] LABS: Appearance Urine Cloudy; Color Urine Yellow; Glucose Urine UA Negative (Negative); Leukocyte Esterase Urine Large (3+) (Negative); Nitrite Urine Negative (Negative); PH 5.5 (5.0-9.0); UMIC TRIGGER UACC YES; Urine Blood Large (3+) (Negative); Urine Ketones Negative (Negative); Urine Protein Trace mg/dL (Neg-Trace)
[2023-03-29 16:37] LABS: Bacteria Urine None Seen (None Seen); Hyaline Casts Urine 0-2 /LPF (0-2); RBC Urine >20 /HPF (0-2); UACC Culture Trigger YES; WBC Urine >50 /HPF (0-5)
== END 2023-03-29 13:28 | disposition home or self-care (01) ==
LOC: HO.HMGCLDS 13:27
PROVIDERS: PCP Internal Medicine; Visit Provider Internal Medicine
DX: R30.0 Dysuria (principal)
CPT/HCPCS: 81001; 87086

== ENCOUNTER 2023-04-01 13:23 | Outpatient (REF) | payer OTHER, SELFPAY ==
[2023-04-01 14:17] LABS: Appearance Urine Cloudy; Color Urine Yellow; Glucose Urine UA Negative (Negative); Leukocyte Esterase Urine Large (3+) (Negative); Nitrite Urine Negative (Negative); PH 5.5 (5.0-9.0); UMIC TRIGGER UACC YES; Urine Blood Trace (Negative); Urine Ketones Negative (Negative); Urine Protein Negative (Neg-Trace)
[2023-04-01 14:23] LABS: Bacteria Urine 1+ (None Seen); Hyaline Casts Urine 0-2 /LPF (0-2); RBC Urine 0-2 /HPF (0-2); UACC Culture Trigger YES; WBC Urine >50 /HPF (0-5)
== END 2023-04-01 13:24 | disposition home or self-care (01) ==
LOC: HO.HMGCLDS 13:23
PROVIDERS: PCP Internal Medicine; Visit Provider Internal Medicine
DX: R30.0 Dysuria (principal)
CPT/HCPCS: 81001; 87086

== ENCOUNTER 2023-05-04 10:29 | Outpatient (REF) | payer OTHER, SELFPAY ==
[2023-05-04 11:21] LABS: MANUAL DIFF FLAG NO
[2023-05-04 11:23] LABS: Appearance Urine Cloudy; Color Urine Yellow; Glucose Urine UA Negative (Negative); Leukocyte Esterase Urine Large (3+) (Negative); Nitrite Urine Negative (Negative); PH 5.5 (5.0-9.0); UMIC TRIGGER UACC YES; Urine Blood Small (1+) (Negative); Urine Ketones Negative (Negative); Urine Protein Trace mg/dL (Neg-Trace)
[2023-05-04 11:34] LABS: Bacteria Urine Trace (None Seen); Hyaline Casts Urine 0-2 /LPF (0-2); UACC Culture Trigger YES; WBC Urine >50 /HPF (0-5)
[2023-05-04 11:40] LABS: Basophils Percent Auto 0.4 % (0-2); Eosinophils Absolute Auto 0.3 X10*3/uL (0.0-0.4); Eosinophils Percent Auto 2.7 % (0-4); Hematocrit 42.6 % (37.0-47.0); Hemoglobin 13.1 g/dl (12.0-16.0); Imm Gran Abs Auto 0.08 X10*3/uL (0.00-0.03); Imm Gran Pct Auto 0.7 % (0.0-0.4); Lymphocytes Absolute Auto 2.6 X10*3/uL (1.2-4.9); Lymphocytes Percent Auto 22.9 % (20-40); Mean Corpuscular HGB Conc 30.8 g/dl (31.0-35.0); Mean Corpuscular Hemoglobin 27.5 pg (27.0-33.0); Mean Corpuscular Volume 89.3 fL (80.0-98.0); Mean Platelet Volume 10.3 fL (9.4-12.3); Monocytes Absolute Auto 0.6 X10*3/uL (0.1-1.2); Monocytes Percent Auto 5.2 % (2-11); Neutrophils Absolute Auto 7.6 x10*3/uL (2.0-8.3); Neutrophils Percent Auto 68.1 % (45-73); Platelet Count 288 X10*3/uL (160-400); Red Blood Count 4.77 X10*6/uL (4.20-5.50); Red Cell Distribution Width 13.6 % (11.0-16.0); White Blood Count 11.2 X10*3/uL (4.8-10.8)
[2023-05-04 12:34] LABS: Alanine Aminotransferase 13 U/L (0-31); Alkaline Phosphatase 73 U/L (39-117); Anion Gap 13 (12-20); Aspartate Amino Transferase 15 U/L (5-31); Bilirubin Total 0.7 mg/dL (0.0-1.0); Blood Urea Nitrogen 20 mg/dL (9-16); Calcium 9.7 mg/dL (8.4-10.2); Carbon Dioxide 33 mmol/L (22-29); Chloride 102 mmol/L (96-108); Cholesterol 205 mg/dL; Estimated Glomerular Filt Rate > 60; Glucose Fasting 99 mg/dL (60-99); HDL Cholesterol 49 mg/dL; LDL Cholesterol Calculated 103 mg/dl; Potassium 4.6 mmol/L (3.3-5.1); Sodium 143 mmol/L (135-145); Total Protein 7.1 g/dL (6.5-8.0); Triglycerides 267 mg/dL
[2023-05-04 12:37] LABS: TSH reflex Free T4 0.22 uIU/mL (0.32-4.0); Vitamin D 25-OH Total 56.5 ng/mL (>30)
[2023-05-04 13:55] LABS: Free T4 (Free Thyroxine) 1.32 ng/dL (0.71-1.85)
== END 2023-05-04 10:30 | disposition home or self-care (01) ==
LOC: HO.HMGCLDS 10:29
PROVIDERS: PCP Internal Medicine; Visit Provider Internal Medicine
DX: E03.9 Hypothyroidism, unspecified (principal); I10 Essential (primary) hypertension; I48.91 Unspecified atrial fibrillation; M81.0 Age-related osteoporosis without current pathological fracture; R82.90 Unspecified abnormal findings in urine
CPT/HCPCS: 36415; 80053; 80061; 81001; 82306; 84439; 84443; 85025; 87086

== ENCOUNTER 2023-05-17 08:54 | Outpatient (REF) | payer OTHER, SELFPAY ==
--- NOTE | ~2023-05-17 | US_ITS ---
EXAMINATION: US RETROPERITONEAL COMPLETE (RENAL) CLINICAL INFORMATION: Asymptomatic microscopic hematuria. COMPARISON: Renal ultrasound 03/05/2020 and 06/12/2008. CT abdomen and pelvis 11/09/2016. TECHNIQUE: Real-time imaging of the kidneys and bladder. FINDINGS: RIGHT KIDNEY: 10.0 x 5.1 x 6.0 cm (SAG x AP x TRV). The kidney is normal in size, contour, and echogenicity. Renal cortical thickness is normal. No calculi or focal parenchymal lesions. No hydronephrosis. LEFT KIDNEY: 11.3 x 6.1 x 4.7 cm (SAG x AP x TRV). The kidney is normal in size, contour, and echogenicity. Renal cortical thickness is normal. No renal calculi or hydronephrosis. A benign 1.7 cm Bosniak class I renal cyst is noted which requires no additional imaging or followup. No solid renal masses are seen. BLADDER: Well distended. Bilateral ureteral jets are demonstrated. Prevoid bladder volume is 187 mL. Postvoid bladder volume is 45 mL. The bladder wall is slightly thickened at 3 mm. ADDITIONAL FINDINGS: Incidentally noted is a benign simple right ovarian cyst measuring 4.2 x 3.3 x 3.5 cm. US/US retroperitoneal comp IMPRESSION: 1. Slightly thickened bladder wall with 45 mL postvoid residual. 2. Incidentally noted 4.2 cm simple right ovarian cyst which requires no further imaging or followup.
== END 2023-05-17 08:55 | disposition home or self-care (01) ==
LOC: HO.HMGCX 08:54
PROVIDERS: PCP Internal Medicine; Visit Provider Internal Medicine
DX: R31.21 Asymptomatic microscopic hematuria (principal)
CPT/HCPCS: 76770

== ENCOUNTER → 2023-05-18 13:45 | Outpatient (BNVA) | payer OTHER, SELFPAY | PROVIDERS: PCP Internal Medicine; Referring Provider Internal Medicine; Visit Provider Nurse Practitioner Family | DX: I48.91 Unspecified atrial fibrillation (principal); I10 Essential (primary) hypertension | CPT/HCPCS: 93005 ==

== ENCOUNTER → 2023-06-22 09:52 | Outpatient (REF) | payer OTHER, SELFPAY ==
--- NOTE | 2023-06-22 11:03 | HM_ITS ---
Conclusion: 1. Patient was monitor for total period of 3 days 2. Baseline was normal sinus rhythm with average heart of 86 beats per minute 3. No significant pauses noted 4. Rare ectopy noted 5. Patient marked 1 event with no reported symptoms that correlated with sinus rhythm MTDD
== END ==
LOC: HO.CARD 09:52
PROVIDERS: Visit Provider Nurse Practitioner Family
DX: I48.91 Unspecified atrial fibrillation (principal)
CPT/HCPCS: 93242

== ENCOUNTER → 2023-06-22 11:03 | Outpatient (BNV) | payer OTHER, SELFPAY | PROVIDERS: Visit Provider Internal Medicine Cardiovascular Disease | DX: I48.91 Unspecified atrial fibrillation (principal) | CPT/HCPCS: 93244 ==

== ENCOUNTER 2023-07-21 08:50 | Outpatient (REF) | payer OTHER, SELFPAY ==
--- NOTE | ~2023-07-21 | MM_ITS ---
EXAMINATION: MM SCREENING DIGITAL BREAST TOMOSYNTHESIS, BILATERAL CLINICAL INFORMATION: Screening. Asymptomatic. COMPARISON: Mammography: 06/24/2022, 06/16/2021, 05/21/2020, and exams dating back to 2012. TECHNIQUE: Digital breast tomosynthesis is performed in both the craniocaudal and mediolateral oblique views along with computer-aided detection (CAD). Synthesized 2D images are generated from the tomosynthesis. FINDINGS: There are scattered areas of fibroglandular density (ACR BI-RADS breast composition Category b). Once again, there are numerous bilateral unchanged parenchymal asymmetries and scattered densities relating to shifting fibroglandular tissue. There is a biopsy clip again noted in the right breast upper outer quadrant abutting a fat-containing mass. Overall, there is been no significant interval change. MM/MM tomosynthesis screening BI IMPRESSION: No mammographic evidence of malignancy. Stable benign findings. ASSESSMENT: BI-RADS BI-RADS 2 - Benign Findings RECOMMENDATION: Routine annual mammography screening. 1 year F/U This examination should not preclude the clinical evaluation of a suspicious palpable abnormality. This patient's information was entered into a reminder system with a target due date for their next mammogram.
== END 2023-07-21 08:51 | disposition home or self-care (01) ==
LOC: HO.MAMMO 08:50
PROVIDERS: PCP Internal Medicine; Visit Provider Internal Medicine
DX: Z12.31 Encounter for screening mammogram for malignant neoplasm of breast (principal)
CPT/HCPCS: 77063; 77067

== ENCOUNTER → 2023-07-21 09:00 | Outpatient (BNV) | payer OTHER, SELFPAY | PROVIDERS: PCP Internal Medicine; Visit Provider Radiology Diagnostic Radiology | DX: Z12.31 Encounter for screening mammogram for malignant neoplasm of breast (principal) | CPT/HCPCS: 77063; 77067 ==

== ENCOUNTER 2023-10-26 09:46 | Day surgery (SDC) | payer OTHER, SELFPAY ==
[2023-10-20 13:50] VITALS: BMI 47.0
--- NOTE | 2023-10-25 08:35 | P.CONAN_ITS ---
Documented by User: Radha Frazier NP 10/25/23 08:39 HPI - Anesthesia Eval Consult details Narrative: 63yo F for Colonoscopy Xarelto for PAF Follows with [facility] [place] [facility], [facility] Active Problems Active Problems: All Active Problems (Updated 05/10/23 @ 14:29 by Amita Ruiz MD) Microscopic hematuria (Acute) Morbid obesity (Acute) Lower back pain (Acute) Asymptomatic microscopic hematuria (Acute) Hip pain, left (Acute) A-fib (Acute) Hypertension (Acute) Hypoventilation associated with obesity (Acute) Obstructive sleep apnea (Acute) Excessive daytime sleepiness (Acute) Snoring (Acute) Witnessed apneic spells (Acute) Hypothyroid (Acute) Osteoporosis (Acute) Hand edema (Acute) Hip pain (Acute) Dysuria (Acute) QAMAR (obstructive sleep apnea) (Acute) Knee pain, left (Acute) Past Medical History Medical History A-fib Hypothyroid Osteoporosis Urethral stenosis Depression with anxiety Thyroid cancer Acid reflux Kidney stone QAMAR (obstructive sleep apnea) Hypertension Knee pain, left Family History Family History Mother Lung cancer Father HTN (hypertension) Melanoma Surgical History Surgical History H/O colonoscopy History of partial hysterectomy History of thyroidectomy Social History Housing: House Alcohol intake: current Alcohol intake frequency: does not drink Patient Tobacco Use Status: Never used Tobacco e-Cigarette/Vaping Use: Never Used service: No Current occupational status: unemployed Current occupation: right handed Cognitive needs: No Hearing needs: No Vision needs: Yes Meds Allergies Allergy/AdvReac Type Severity Reaction Status Date / Time erythromycin base Allergy Intermediate Abdominal Verified 10/20/23 13:35 Pain lisinopril Allergy Intermediate Rash Verified 10/20/23 13:35 Home Medications Medication Instructions Recorded Confirmed Last Taken Type cholecalciferol (vitamin D3) 50 50 mcg PO DAILY 10/03/20 10/20/23 08/25/22 History mcg (2,000 unit) capsule levothyroxine 125 mcg tablet 125 mcg PO DAILY 08/25/22 10/20/23 08/25/22 History omeprazole 20 mg capsule,delayed 20 mg PO DAILY PRN GERD 08/25/22 10/20/23 Unknown History release alendronate 70 mg tablet 70 mg PO QWEEK 11/05/22 05/18/23 Unknown History Exam Height,Weight and Vital Signs: Height 5 ft 1 in Weight 112.945 kg Pertinent Lab Results Pertinent Lab Results: Laboratory Tests 05/04/23 10:33 WBC 11.2 H Hgb 13.1 Hct 42.6 Plt Count 288 Sodium 143 Potassium 4.6 Chloride 102 Carbon Dioxide 33 H BUN 20 H Creatinine 0.80 Narrative Narrative: Echocardiogram done 9 01/18/2022 showed EF greater than 70%, mild increase in the RV and are a size. Nuclear stress test done 09/03/2022 with poor exercise capacity with moderate shortness of breath, then changed to a pharmacological stress test with normal myocardial perfusion imaging. EKG 04/2023 SR, RBBB, rate 83 Assessment and Plan Assessment Anesthesia Assessment: Chart Reviewed Documented by User: Yesica Machuca MD 10/26/23 10:38 HPI - Anesthesia Eval Consult details Narrative: 63yo F for Colonoscopy Xarelto for PAF. Last dose 10/23/23 Follows with [facility] [place] [facility], [facility] Active Problems Active Problems: All Active Problems (Updated 10/26/23 @ 10:14 by Yesica Machuca MD) Morbid obesity (Acute) BMI 47.4 Lower back pain (Acute) Asymptomatic microscopic hematuria (Acute) Hip pain, left (Acute) A-fib (Acute)? Paroxysmal Hypertension (Acute) Hypoventilation associated with obesity (Acute) Obstructive sleep apnea (Acute)- Not using CPAP yet. Unable to get used to Excessive daytime sleepiness (Acute) Snoring (Acute) Witnessed apneic spells (Acute) Hypothyroid (Acute) Osteoporosis (Acute) Hand edema (Acute) Hip pain (Acute) Dysuria (Acute) Knee pain, left (Acute) Extended Holter monitor 06/20- Underlying rhythm SR. Some PACs, PVCs. No afib/flutter Past Medical History Medical History A-fib Hypothyroid Osteoporosis Urethral stenosis Depression with anxiety Thyroid cancer Acid reflux Kidney stone QAMAR (obstructive sleep apnea) Hypertension Knee pain, left Family History Family History Mother Lung cancer Father HTN (hypertension) Melanoma Family history of problems with anesthesia: No Surgical History Surgical History H/O colonoscopy History of partial hysterectomy History of thyroidectomy History of Problems with Anesthesia: No Social History Housing: House Alcohol intake: current Alcohol intake frequency: does not drink Patient Tobacco Use Status: Never used Tobacco e-Cigarette/Vaping Use: Never Used service: No Current occupational status: unemployed Current occupation: right handed Cognitive needs: No Hearing needs: No Vision needs: Yes Meds Allergies Allergy/AdvReac Type Severity Reaction Status Date / Time erythromycin base Allergy Intermediate Abdominal Verified 10/20/23 13:35 Pain lisinopril Allergy Intermediate Rash Verified 10/20/23 13:35 Home Medications Medication Instructions Recorded Confirmed Last Taken Type cholecalciferol (vitamin D3) 50 50 mcg PO DAILY 10/03/20 10/20/23 08/25/22 History mcg (2,000 unit) capsule levothyroxine 125 mcg tablet 125 mcg PO DAILY 08/25/22 10/20/23 08/25/22 History omeprazole 20 mg capsule,delayed 20 mg PO DAILY PRN GERD 08/25/22 10/20/23 Unknown History release alendronate 70 mg tablet 70 mg PO QWEEK 11/05/22 05/18/23 Unknown History Exam Airway Mallampati Class: III (Small mouth opening) TM Dist: >3cm Neck ROM: Full Loose/Missing/Broken Teeth: No (Denies broken, loose, missing teeth) Heart: RRR Lungs: CTAB Assessment and Plan Assessment Anesthesia Assessment: Anesthesia Plan Discussed Final Anesthetic Review Family History of Problems with Anesthesia: No History of Problems with Anesthesia: No NPO: Yes ASA Class: III Final Preanesthetic Review: No Changes in Pt Med Stat, Meds/Allgs Chart Reviewed, Consent Obtained/Reviewed and Anes Risks/Benef Reviewed Patient Risk: Intermediate Procedure Risk: Low Assessment/Block/Sedation in SS: Assess/Block/Sedation-SS Anesthetic Plan Anesthetic Plan: MAC: Disposition: Standard PACU
[2023-10-26 10:15] VITALS: BMI 47.4
[2023-10-26 10:23] VITALS: BMI 47.4
--- NOTE | 2023-10-26 10:35 | MHC.SHP ---
Pre-Procedural Eval Section A Date of Service: 10/26/23 Section B Chief Complaint: Encounter for screening for malignant neoplasm of Details of Present Illness: see H&P no changes Relevant Family History (Specify if Yes): No Relevant Social History: None Present Medications: see Short Stay Collaborative assessment Medical History: No relevant PMH History of Previous Operations: No relevant previous surgery Allergies: Allergies Allergy/AdvReac Type Severity Reaction Status Date / Time erythromycin base Allergy Intermediate Abdominal Verified 10/20/23 13:35 Pain lisinopril Allergy Intermediate Rash Verified 10/20/23 13:35 Review of Systems Sugical H&P ROS: Negative: Constitution, Cardiovascular, Respiratory, Neurological, Psychiatric, Hem-Onc, Allergic/Immunologic, Gastrointestinal, Genitourinary, Musculoskeletal, Integumentary, Endocrine and Eyes/Ears/Nose/Throat Exam Surgical H&P Exam: Normal: HEENT, Normal: Heart, Normal: Lungs, Normal: Extremities, Normal: Abdomen, Normal: Skin and Normal: Neurological Plan Diagnosis/Plan: Unchanged I have reviewed the history and physical and performed a pertinent physical examination on my patient. No changes have occurred unless specified. Time Spent With Patient Time: Total time managing care of this patient today ____ minutes.
[2023-10-26 10:37] VITALS: BP 139/61; PULSE 90; RESP 16; TEMP 37.3; O2SAT 94
[2023-10-26] MEDS: Lactated Ringers 1,000 ML 100 ML IVCONT (10:40)
--- NOTE | 2023-10-26 11:04 | P.BOP_ITS ---
Brief Operative Note Date of Service: 10/26/23 Pre-op diagnosis: screening Post-op diagnosis: same Procedure: colonoscopy Surgeon: Arie Last MD Anesthesia: MAC Was an [employer] Equipment Mechanic Supervisor used for this Procedure?: No Estimated blood loss (mL): 2 Pathology: other Condition: stable Disposition: PACU
[2023-10-26 11:05] VITALS: BP 97/46; PULSE 82; RESP 16; TEMP 37.2; O2SAT 99
[2023-10-26 11:20] VITALS: BP 107/62; PULSE 80; RESP 18; TEMP 37; O2SAT 96
--- NOTE | 2023-10-26 12:36 | OP_ITS ---
DATE OF SERVICE: 10/26/2023 SURGEON: Arie Last MD INDICATIONS: Colon cancer screening. PREOPERATIVE DIAGNOSIS: POSTOPERATIVE DIAGNOSIS: PROCEDURE PERFORMED: Colonoscopy to the terminal ileum with biopsy and snare polypectomy. ESTIMATED BLOOD LOSS: COMPLICATIONS: ANESTHESIA: Monitored anesthesia care. ASSISTANTS: SPECIMENS: DESCRIPTION OF PROCEDURE: A history and physical was performed. The risks and benefits of the procedure were explained to the patient. Informed consent was obtained. The patient was placed in the left lateral decubitus position. A digital rectal exam was performed and was found to be normal. The Olympus pediatric video colonoscope was introduced into the rectum and advanced to the cecum. The cecum was identified by transillumination, palpation, and identification of ileocecal valve. Examination was performed. The scope was removed. She tolerated the procedure well and was returned to the recovery area in stable condition. FINDINGS: The terminal ileum was examined and appeared normal. The visualized colonic mucosa was within normal limits without evidence of masses or ulcers. Two polyps were identified and removed using a cold snare. These were located at 20 cm into the rectum and both measured less than 10 mm. Random sigmoid biopsies were obtained to rule out microscopic colitis. Retroflexed examination showed moderate-sized internal hemorrhoids. IMPRESSION: Colon polyps. RECOMMENDATION: Follow up the biopsy results. MD BELEM Anne/KEIRA / [id number]
== END 2023-10-26 12:09 | disposition home or self-care (01) ==
PROVIDERS: PCP Internal Medicine; Visit Provider Internal Medicine Gastroenterology
PROC: 0DJD8ZZ Inspection of Lower Intestinal Tract, Via Natural or Artificial Opening Endoscopic (ICD-10-PCS; CPT 45378; principal; 2023-10-26 11:10)
DX: Z12.11 Encounter for screening for malignant neoplasm of colon (principal); K63.5 Polyp of colon; K62.1 Rectal polyp; K64.8 Other hemorrhoids; I10 Essential (primary) hypertension; I48.91 Unspecified atrial fibrillation; M81.0 Age-related osteoporosis without current pathological fracture; G47.33 Obstructive sleep apnea (adult) (pediatric); Z99.89 Dependence on other enabling machines and devices; Z90.711 Acquired absence of uterus with remaining cervical stump; Z85.850 Personal history of malignant neoplasm of thyroid; Z79.01 Long term (current) use of anticoagulants; Z79.899 Other long term (current) drug therapy; Z88.1 Allergy status to other antibiotic agents; Z88.8 Allergy status to other drugs, medicaments and biological substances
CPT/HCPCS: 45385; 45380; 88300; 88305; J2704

== ENCOUNTER 2023-10-27 09:15 | Outpatient (AMB) | payer OTHER, SELFPAY ==
--- NOTE | 2023-10-27 09:20 | AM.OFFWIN_ITS ---
Intake Vital Signs 10/27/23 09:27 Height 5 ft 1 in Weight 248 lb BMI 46.9 BP 132/62 Blood Pressure Location Rt brachial Position Sitting Pulse 97 Pulse Source Pulse Oximeter Temp 97.2 F Temp Source Temporal Artery Scan Pulse Oximetry (%) 100 Oxygen Delivery Method Room Air Intake Visit Reasons: EP Gout LFT Foot Intake Note: Pt is here c/o gout on her left foot. Patient Tobacco Use Status: Never used Tobacco Allergies erythromycin base Allergy (Intermediate, Verified 10/27/23 09:53) Abdominal Pain lisinopril Allergy (Intermediate, Verified 10/27/23 09:53) Rash Medication List - Last Reconciled 10/27/23 by Sharif Jackson MD alendronate 70 mg PO QWEEK cholecalciferol (vitamin D3) 50 mcg PO DAILY estradiol 0.01%(0.1mg/gram) (Estrace) 1 appful vaginal DAILY hydrochlorothiazide 25 mg PO DAILY ketoconazole 2% 1 appl topical DAILY levothyroxine 125 mcg PO DAILY metoprolol tartrate 50 mg PO BID 90 days nitrofurantoin monohyd/m-cryst 100 mg (Macrobid) 100 mg PO Q12H 7 days olmesartan-hydrochlorothiazide 40-25 mg 1 tab PO DAILY omeprazole 20 mg PO DAILY PRN rivaroxaban (Xarelto) 20 mg PO DAILY triamcinolone acetonide 0.025% 1 appl topical DAILY HPI EP Gout LFT Foot HPI Details 63-year-old female presents to the [facility] for a sick visit. Patient was diagnosed with gout 3 weeks ago. This was set another walk-in center. She received 1 week of prednisone. Towards the end of her treatment the pain symptoms were subsiding but it has flared up again. Continues to have marked pain in the left foot especially around the MTP joint. [facility] Medical History A-fib Hypothyroid Osteoporosis Urethral stenosis Depression with anxiety Thyroid cancer Acid reflux Kidney stone QAMAR (obstructive sleep apnea) Hypertension Knee pain, left Surgical History H/O colonoscopy History of partial hysterectomy History of thyroidectomy Family History Mother Lung cancer Father HTN (hypertension) Melanoma Social History Housing: House Alcohol intake: current Alcohol intake frequency: does not drink Patient Tobacco Use Status: Never used Tobacco e-Cigarette/Vaping Use: Never Used service: No Current occupational status: unemployed Current occupation: right handed Cognitive needs: No Hearing needs: No Vision needs: Yes Physical Exam Vital Signs: Last Vital Signs Temp 97.2 F 10/27/23 09:27 Pulse 97 10/27/23 09:27 BP 132/62 10/27/23 09:27 Pulse Ox 100 10/27/23 09:27 Oxygen Delivery Method Room Air 10/27/23 09:27 BMI result Body Mass Index 46.9 Extrem Other: Left foot: MTP joint: Tender to touch. Pain on flexion. Assessment & Plan Assessment & Plan (1) Gouty arthritis: Code(s): M10.9 - Gout, unspecified Plan X-ray images reviewed by me. Blood work to check uric acid levels ordered. Colchicine added to the regimen. I am aware that patient is on a blood thinner, but she did not respond to prednisone in the past. Orders: Orders Basic Metabolic Panel Today M10.9 - Gout, unspecified Complete Blood Count no Diff Today M10.9 - Gout, unspecified Erythrocyte Sedimentation Rate Today M10.9 - Gout, unspecified XR foot LT min 3V Today M10.9 - Gout, unspecified Uric Acid Today M10.9 - Gout, unspecified Medications: New colchicine 0.6 mg PO DAILY 10 tabs 0RF Coding Level of Care Code Est Pt Level 4 (78527) Diagnoses Gouty arthritis M10.9
[2023-10-27 09:27] VITALS: BP 132/62; PULSE 97; TEMP 36.2; O2SAT 100; BMI 46.9
== END 2023-10-27 10:22 | disposition home or self-care (01) ==
PROVIDERS: PCP Internal Medicine; Visit Provider Internal Medicine
DX: M10.9 Gout, unspecified (principal)
CPT/HCPCS: 99214

== ENCOUNTER 2023-10-27 09:39 | Outpatient (REF) | payer OTHER, SELFPAY ==
--- NOTE | ~2023-10-27 | XR_ITS ---
EXAMINATION: XR FOOT, LEFT CLINICAL INFORMATION: Gout COMPARISON: None available. TECHNIQUE: AP, lateral, and oblique views of the left foot. FINDINGS: There is marked hallux valgus. Some subchondral cysts are present at the first metatarsal head. Mild degenerative changes are present at the interphalangeal joints most marked in the second through fourth toes. Mild degenerative change seen at the TMT joints. No fractures or dislocations. No calcified tophi or periarticular erosions. XR/XR foot LT min 3V IMPRESSION: Marked hallux valgus with mild degenerative changes as described above.
[2023-10-27 13:39] LABS: Hematocrit 40.7 % (37.0-47.0); Hemoglobin 12.6 g/dl (12.0-16.0); Mean Corpuscular Hemoglobin 27.3 pg (27.0-33.0); Mean Corpuscular Volume 88.1 fL (80.0-98.0); Mean Platelet Volume 10.1 fL (9.4-12.3); Platelet Count 294 X10*3/uL (160-400); Red Blood Count 4.62 X10*6/uL (4.20-5.50); Red Cell Distribution Width 14.4 % (11.0-16.0)
[2023-10-27 14:10] LABS: Anion Gap 13 (12-20); Blood Urea Nitrogen 25 mg/dL (9-16); Calcium 9.3 mg/dL (8.4-10.2); Carbon Dioxide 29 mmol/L (22-29); Chloride 101 mmol/L (96-108); Estimated Glomerular Filt Rate 51; Glucose Random 114 mg/dL (60-115); Potassium 3.8 mmol/L (3.3-5.1); Sodium 139 mmol/L (135-145); Uric Acid 10.6 mg/dL (2.4-5.7)
[2023-10-27 14:15] LABS: Erythrocyte Sedimentation Rate 42 MM/HR (0-20)
== END 2023-10-27 09:40 | disposition home or self-care (01) ==
LOC: HO.HMGCX 09:39
PROVIDERS: PCP Internal Medicine; Visit Provider Internal Medicine
DX: M10.9 Gout, unspecified (principal)
CPT/HCPCS: 36415; 73630; 80048; 84550; 85027; 85652

== ENCOUNTER 2023-11-17 12:53 | Outpatient (REF) | payer OTHER, SELFPAY ==
[2023-11-21 16:37] LABS: Vitamin D 25-OH, D2 <4 ng/mL; Vitamin D 25-OH, D3 43 ng/mL; Vitamin D 25-OH, Total 43 ng/mL (30-100)
== END 2023-11-17 12:54 | disposition home or self-care (01) ==
LOC: HO.LAB 12:53
PROVIDERS: PCP Internal Medicine; Visit Provider Internal Medicine Cardiovascular Disease
DX: M79.10 Myalgia, unspecified site (principal); R06.00 Dyspnea, unspecified
CPT/HCPCS: 36415; 82306; 82550

== ENCOUNTER 2023-11-17 12:53 | Outpatient (AMB) | payer OTHER, SELFPAY ==
--- NOTE | 2023-11-17 13:02 | A.OFFVIS_ITS ---
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 Required: No Accompanied by: Self / Same As Patient Allergies erythromycin base Allergy (Intermediate, Verified 11/17/23 13:09) Abdominal Pain lisinopril Allergy (Intermediate, Verified 11/17/23 13:09) Rash Medication List - Last Reconciled 11/17/23 by Andrea Galarza MD cholecalciferol (vitamin D3) 50 mcg PO DAILY hydrochlorothiazide 25 mg PO DAILY levothyroxine 125 mcg PO DAILY metoprolol tartrate 50 mg PO BID 90 days olmesartan-hydrochlorothiazide 40-25 mg 1 tab PO DAILY omeprazole 20 mg PO DAILY PRN rivaroxaban (Xarelto) 20 mg PO DAILY triamcinolone acetonide 0.025% 1 appl topical DAILY PRN HPI HPI Comments History of Present Illness Details Pleasant 63 year female who is here for follow-up. She was seen in the hospital when she presented with paroxysmal atrial fibrillation. She reverted back to sinus rhythm on her own. She was started on Eliquis for anticoagulation. She has been doing well since then. Her blood pressure has been elevated at this stage. She was taking on Olmesartan-hydrochlorothiazide combination as well as atenolol 100 mg once a day. blood pressure in the office is 152/74. She is denying any chest pain. She has some dyspnea on exertion which she think is due to her obesity. She has been diagnosed with sleep apnea and just received a CPAP mask which she will be starting. She has felt palpitations on couple of occasions but they were very short-lived and self- limiting. No bleeding issues. 11/17/2023: She returns for follow-up. She has 1 episode of dizziness and palpitations while she was out with her daughter for short lived. She also had some AFib episodes while she was in [place]. She is complaining of shortness of breath with activity. She is saying that this is somewhat chronic symptom and she feels limited by activity. She also has a lot of aching in her both legs. She is taking rivaroxaban for anticoagulation. No bleeding issues. She previously had a Lexiscan which was normal in August 2022. [facility] Medical History (Updated 11/17/23 @ 13:38 by Andrea Galarza MD) A-fib Hypothyroid Osteoporosis Urethral stenosis Depression with anxiety Thyroid cancer Acid reflux Kidney stone QAMAR (obstructive sleep apnea) Hypertension Knee pain, left Surgical History (Updated 11/17/23 @ 13:12 by Alicia Kim) Hx of cystoscopy H/O colonoscopy History of partial hysterectomy History of thyroidectomy Family History Mother Lung cancer Father HTN (hypertension) Melanoma Social History Housing: House Alcohol intake: current Alcohol intake frequency: does not drink Patient Tobacco Use Status: Never used Tobacco e-Cigarette/Vaping Use: Never Used service: No Current occupational status: unemployed Current occupation: right handed Cognitive needs: No Hearing needs: No Vision needs: Yes Review of Systems Const Denies weakness ENT Denies dizziness Card Denies chest pain, Denies chest pain with activity, Denies syncope, Denies rapid heart rate, Denies pedal edema, Denies edema, Denies leg edema, Denies lightheadedness, Denies palpitations, Denies dyspnea on exertion and Denies orthopnea Resp Denies cough and Denies dyspnea on exertion GI Denies hematochezia and Denies change in stool character Musc Denies abnormal gait, Denies muscle cramps, Denies muscle weakness, Denies numbness, Denies radiating pain into limb and Denies tingling Neuro Denies abnormal gait, Denies dizziness, Denies syncope, Denies numbness, Denies tingling and Denies weakness Endo Denies palpitations Physical Exam Vital Signs: Last Vital Signs Pulse 93 11/17/23 13:06 BP 138/60 11/17/23 13:06 BMI result Body Mass Index 47.9 GENERAL APPEARANCE: in no acute distress, pleasant. NECK: no carotid bruit, no jugular venous distention. SKIN: no suspicious lesions, warm and dry. HEART: no murmurs, regular rate and rhythm. LUNGS: clear to auscultation bilaterally. ABDOMEN: soft, nontender. EXTREMITIES: + edema. PERIPHERAL PULSES: equal. NEUROLOGIC: No gross deficits, AAO X 3 Assessment & Plan Assessment & Plan (1) Muscular aches: Code(s): M79.10 - Myalgia, unspecified site (2) Dyspnea: Code(s): R06.00 - Dyspnea, unspecified Plan 63-year-old female who is here for follow-up. She has paroxysmal atrial fibrillation is currently taking rivaroxaban 20 mg daily for anticoagulation. She is on metoprolol succinate 50 mg twice a day. She has gout and uric acid levels are high. She was treated with colchicine. Hydrochlorothiazide can be the cause for hyperuricemia in this patient and she is taking 50 mg of hydrochlorothiazide currently. If uric acid level is not coming down and she has persistent hyperuricemia and then thiazide should be stopped. She has a lot of muscle aches and pains in the legs. I will check a CPK and vitamin-D level. Will arrange echocardiography to assess for any obvious structural issues and explanation for dyspnea. If echo is normal and she has persistent dyspnea then I will discuss with her about her left and right heart catheterization. She has symptomatic atrial fibrillation and it appears she gets quite dizzy and lightheaded when she develops palpitations. Depending on echo and further te sting will decide about rhythm control strategy. Thank you for allowing me to participate in the care of your patient. Please feel free to contact me if you have any questions. Orders: Orders Vitamin D 25-OH (D2 and D3) Today M79.10 - Myalgia, unspecified site CA echo transthoracic complete Today R06.00 - Dyspnea, unspecified Creatine Kinase Total Today M79.10 - Myalgia, unspecified site Medications: Changed From triamcinolone acetonide 0.025% 1 appl topical DAILY 80 grams 0RF To triamcinolone acetonide 0.025% 1 appl topical DAILY PRN From omeprazole 20 mg PO DAILY 90 caps 3RF To omeprazole 20 mg PO DAILY PRN Coding Level of Care Code Est Pt Level 4 (46384) Diagnoses Muscular aches M79.10 Dyspnea R06.00
[2023-11-17 13:06] VITALS: BP 138/60; PULSE 93; BMI 47.9
== END 2023-11-17 13:39 | disposition home or self-care (01) ==
PROVIDERS: PCP Internal Medicine; Visit Provider Internal Medicine Cardiovascular Disease
DX: M79.10 Myalgia, unspecified site (principal); R06.00 Dyspnea, unspecified
CPT/HCPCS: 99214

== ENCOUNTER → 2023-12-14 07:55 | Outpatient (REF) | payer OTHER, SELFPAY ==
--- NOTE | 2023-12-14 07:58 | CA_ITS ---
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 There is mildly increased left ventricular wall thickness. The left ventricular systolic function is hyperdynamic. The visually estimated ejection fraction is >70%. There is no evidence of regional wall motion abnormalities. Diastolic function is normal for age. - Normal right ventricular cavity size and systolic function. Findings Procedure Information Contrast agent, definity, is being given per protocol without apparent complications. Left Ventricle Normal left ventricular cavity size. There is mildly increased left ventricular wall thickness. The left ventricular systolic function is hyperdynamic. The visually estimated ejection fraction is >70%. There is no evidence of regional wall motion abnormalities. Diastolic function is normal for age. Right Ventricle Normal right ventricular cavity size and systolic function. Atria The left atrium is normal in size. The right atrium is normal in size. Aortic Valve There is a normal trileaflet aortic valve. There is no aortic valve stenosis. There is no aortic valve regurgitation. Mitral Valve The mitral valve appears normal. There is no mitral valve regurgitation. There is no mitral valve stenosis. Pulmonic Valve The pulmonic valve is normal. There is trace pulmonic valve regurgitation. Tricuspid Valve Normal tricuspid valve structure and function. Tricuspid regurgitation envelope is inadequate for calculation of right ventricular systolic pressure. Normal right atrial pressure. Great Vessels There is mild dilatation of the ascending aorta measuring 3.40 cm. The visualized portions of the pulmonary artery and branches are normal. Venous The inferior vena cava is normal in size and collapses greater than 50% with inspiration. Pericardium/Pleural There is no evidence of pericardial effusion. Prior Study Comparison Changes noted compared to prior study dated: 08/26/2022. Mild dilation of ascending aorta. Measurements 2D Linear Measurements IVSd: 1.09 0.6-0.9/0.6-1.0 cm LVIDd: 4.37 3.9-5.3/4.2-5.9 cm LVIDd Index: 2.12 2.4-3.2/2.2-3.1 cm/m2 LVIDs: 2.28 2.0-3.6 cm LVPWd: 1.03 0.7-1.1 cm LA Diam: 3.90 2.7-3.8/3.0-4.0 cm LAIDs Index: 1.89 1.5-2.3 cm/m2 LV Mass: 197.50 67-162/88-224 g LV Mass Index: 95.87 43-95/49-115 g/m2 LVOT Diam: 2.10 3.0+(-)1.3 cm 2D Systolic Function EF 4C: 62.50 >55% EF 2C: 68.50 >55% EF BiP: 67.20 >55% Mitral Valve MV VTI: 0.28 MV Pk Harrison: 1.03 MV Mn Harrison: 0.62 MV Pk Grad: 4.00 MV Mn Grad: 2.00 MV Pk E: 0.81 MV PK A: 0.73 MV Decel Time: 168.00 E/A: 1.10 E'Lateral: 9.25 E'Medial: 6.53 E/E' Med: 12.40 E/E' Lat: 8.80 PHT: 49.00 MVA PHT: 4.49 MVA Continuity: 3.22 Decel Lajas: 4.82 Aortic Valve AoV Pk Harrison: 1.45 AoV Mn Harrison: 1.03 AoV VTI: 0.33 AoV Pk Grad: 8.00 Aov Mn Grad: 5.00 DUNIA Cont.VTI: 2.77 LVOT LVOT Pk Harrison: 1.12 LVOT Mn Harrison: 0.74 LVOT VTI: 0.26 LVOT Pk Grad: 5.00 LVOT Mn Grad: 3.00 LVOT Diam: 2.10 LVOT Area: 3.46 Diastolic Function MV Pk E: 0.81 MV Pk A: 0.73 E/A: 1.10 E'Medial: 6.53 E/E' Med: 12.40 E' Laterial: 9.25 E/E' Lat: 8.80 Right Ventricle TAPSE (mm): 22.30 TVS' Harrison: 9.79 Tricuspid Valve RA Press: 3.00 Great Vessels Aorta Sinus of Valsalva: 3.22 2.0-3.5 cm Ao Asc: 3.40 2.1-3.4 cm Ao Arch: 2.90 Updated in Other Vendor System with Status of Final Andrea Galarza MD electronically signed on 12/15/2023 2:08:35 PM with status of Final
== END ==
LOC: HO.CARD 07:55
PROVIDERS: PCP Internal Medicine; Visit Provider Internal Medicine Cardiovascular Disease
DX: R06.00 Dyspnea, unspecified (principal)
CPT/HCPCS: 93306; Q9957

== ENCOUNTER → 2023-12-14 07:58 | Outpatient (BNV) | payer OTHER, SELFPAY | PROVIDERS: PCP Internal Medicine; Visit Provider Internal Medicine Cardiovascular Disease | DX: R06.00 Dyspnea, unspecified (principal) | CPT/HCPCS: 93306 ==

== ENCOUNTER 2024-01-04 10:11 | Outpatient (AMB) | payer OTHER, SELFPAY ==
[2024-01-04 10:12] VITALS: BP 122/74; PULSE 85; O2SAT 95; BMI 47.0
--- NOTE | 2024-01-04 10:12 | A.OFFPC_ITS ---
Vital Signs 01/04/24 10:12 Height 5 ft 1 in Weight 249 lb BMI 47.0 BP 122/74 Blood Pressure Location Lt brachial Position Sitting Pulse 85 Pulse Source Pulse Oximeter Pulse Oximetry (%) 95 Oxygen Delivery Method Room Air Intake Visit Reasons: 2 month follow up ( meds) Intake Note: Pt is here today for a follow up visit. Allergies erythromycin base Allergy (Intermediate, Verified 01/04/24 10:14) Abdominal Pain lisinopril Allergy (Intermediate, Verified 01/04/24 10:14) Rash Medication List - Last Reconciled 01/04/24 by Amita Ruiz MD cholecalciferol (vitamin D3) 50 mcg PO DAILY colchicine 0.6 mg PO DAILY levothyroxine 125 mcg PO DAILY metoprolol succinate ER 75 mg (1.5 x 50 mg) PO BID metoprolol tartrate 50 mg PO BID 90 days olmesartan-hydrochlorothiazide 40-25 mg 1 tab PO DAILY omeprazole 20 mg PO DAILY PRN rivaroxaban (Xarelto) 20 mg PO DAILY triamcinolone acetonide 0.025% 1 appl topical DAILY PRN Tobacco use date assessed: 01/04/24 Dental Screening Dental Screen Date: 01/04/24 Did you have a dental visit in the last 12 months?: Yes Did you have a dental problem in the last 6 months where you did not have access to dental care?: No Was dental information given to patient?: Patient has dentist HPI 2 month follow up ( meds) HPI Details Patient presents for the follow-up of hypertension paroxysmal AFib and hypothyroidism. Patient had an episode of recurrent gout in September and has been taking preventive colchicine since then. Patient denies any recurrent symptoms. She reports baseline dyspnea on exertion getting slightly better since started exercising more. Patient denies episodes of palpitation since the last visit. She had echocardiogram which showed normal ejection fraction, no regional wall motion abnormalities and normal valves. Patient is contemplating knee replacement surgery well was recommended more weight loss. [facility] Medical History (Updated 01/04/24 @ 10:52 by Amita Ruiz MD) A-fib Hypothyroid Osteoporosis Urethral stenosis Depression with anxiety Thyroid cancer Acid reflux Kidney stone QAMAR (obstructive sleep apnea) Hypertension Knee pain, left Surgical History (Updated 11/17/23 @ 13:12 by Alicia Kim) Hx of cystoscopy H/O colonoscopy History of partial hysterectomy History of thyroidectomy Family History Mother Lung cancer Father HTN (hypertension) Melanoma Social History Housing: House Alcohol intake: current Alcohol intake frequency: does not drink Patient Tobacco Use Status: Never used Tobacco e-Cigarette/Vaping Use: Never Used service: No Current occupational status: unemployed Current occupation: right handed Cognitive needs: No Hearing needs: No Vision needs: Yes Questionnaire PHQ-9 Over the last 2 weeks, how often have you been bothered by any of the following problems? 1. Little interest or pleasure in doing things: several days 2. Feeling down, depressed, or hopeless: several days 3. Trouble falling or staying asleep, or sleeping too much: several days 4. Feeling tired or having little energy: several days 5. Poor appetite or overeating: not at all 6. Feeling bad about yourself - or that you are a failure or have let yourself or your family down: not at all 7. Trouble concentrating on things, such as reading the newspaper or watching television: not at all 8. Moving or speaking so slowly that other people could have noticed. Or the opposite - being so fidgety or restless that you have been moving around a lot more than usual: not at all 9. Thoughts that you would be better off or of hurting yourself in some way: not at all Total score: 4 Depression Screening Interpretation: Negative Depression Screening Done: Yes Source: Developed by Drs. Kenney Sweeney, Juana Oliva, Jaime Jiang and colleagues, with an educational petra from [employer]. Thrive Questionnaire Date Thrive assessed: 01/04/24 I am a: Patient What is your living situation today?: I have a steady place to live Within the past 12 months, did the food you bought not last and you didn't have the money to get more?: Never true Within the past 12 months, did you worry whether your food would run out before you got money to buy more?: Never true Do you have trouble paying for medicines?: No Do you have trouble getting transportation to medical appointments?: No Do you have trouble paying your heating and electricity bill?: No Do you have trouble taking care of your child, family member or friend?: No Do you have trouble with day-to-day activities such as bathing, preparing meals, shopping, managing finances, etc.?: No Are you currently unemployed and looking for a job?: No Are you interested in more education?: No Please select the resources that you would like help with: None Currently or been in a relationship where the following occur: no concerns reported THRIVE Score: 0 AUDIT C Alcohol Use Questionnaire (AUDIT-C) 1. How often do you have a drink containing alcohol?: Never 3. How often do you have six or more drinks on one occasion?: Never Total Score: 0 DARLEEN-7 AMB Questionnaire DARLEEN-7 Date DARLEEN - 7 assessed: 01/04/24 Feeling nervous, anxious, or on edge: 1 = Several days Not being able to stop or control worryin = Several days Worrying too much about different things: 1 = Several days Trouble relaxin = Not at all Being so restless that it is hard to sit still: 0 = Not at all Becoming easily annoyed or irritable: 0 = Not at all Feeling afraid as if something awful might happen: 1 = Several days Total DARLEEN-7 score (0-4 normal; 5-9 mild; 10-14 moderate; 15-21 severe): 4 Source: Developed by Drs. Kenney Sweeney, Juana Oliva, Jaime Jiang and colleagues, with an educational petra from [employer]. Review of Systems Const All systems reviewed & are unremarkable except as noted in HPI and below Reports no additional complaints Eyes Reports no additional complaints ENT Reports no additional complaints Card Reports no additional complaints Resp Reports no additional complaints GI Reports no additional complaints Musc Reports no additional complaints Physical exam (Primary Care) Vital Signs: Last Vital Signs Pulse 85 01/04/24 10:12 BP 122/74 01/04/24 10:12 Pulse Ox 95 01/04/24 10:12 Oxygen Delivery Method Room Air 01/04/24 10:12 BMI result Body Mass Index 47.0 Tobacco/Smoking Status: Tobacco use Status Tobacco use date assessed 01/04/24 01/04/24 10:19 Patient Tobacco Use Status Never used Tobacco 01/04/24 10:19 e-Cigarette/Vaping Use Never Used 01/04/24 10:19 PHQ-9: PHQ-9 Score PHQ-9: Total score 4 01/04/24 10:19 Depression Screening Interpretation: Negative Thrive Assessment: Date of Thrive Assessment Date Thrive assessed 01/04/24 01/04/24 10:19 Currently or been in a relationship where the following occur: no concerns reported Const General: no acute distress HENMT Head: Yes normal to inspection Ears: hearing grossly normal bilaterally Throat: Yes posterior oropharynx normal Eyes General: appearance normal, both eyes and all related structures Neck Neck: Yes no lymphadenopathy and Yes supple Resp Effort & Inspection: normal respiratory effort Auscultation: clear to auscultation bilaterally Cardio Rhythm: regular rhythm Heart sounds: S1 normal heart sound present and S2 normal heart sound present Assessment and Plan Assessment & Plan (1) Hypertension: Code(s): I10 - Essential (primary) hypertension Plan: Patient will stop taking separate hydrochlorothiazide and metoprolol succinate will be increased to 75 mg twice a day. Patient will follow-up in 1 month (2) Hypothyroid: Comment: Status post thyroidectomy for thyroid CA, f/u [facility] Q 6MTHS Code(s): E03.9 - Hypothyroidism, unspecified Plan: Continue levothyroxine (3) Morbid obesity: Code(s): E66.01 - Morbid (severe) obesity due to excess calories Plan: Increase physical activity decrease in caloric intake and weight loss discussed with the patient (4) A-fib: Comment: paroxysmal, Echo and stress test nl 08/20, f/u cardiology Code(s): I48.91 - Unspecified atrial fibrillation Plan: Anticoagulated on Xarelto and follow-up with Cardiology (5) Gout: Code(s): M10.9 - Gout, unspecified Plan: For episodes of gout and elevated uric acid level patient was advised to stop taking a separate hydrochlorothiazide 25 mg, follow low purine diet and recheck uric acid level in 4 weeks Medications: New metoprolol succinate ER 75 mg (1.5 x 50 mg) PO BID 270 tabs 1RF Changed From colchicine 0.6 mg PO BID 60 caps 0RF To colchicine 0.6 mg PO DAILY Discontinued hydrochlorothiazide Discontinued Reason: Doctor's Order 25 mg PO DAILY 60 tabs 3RF I10 - Essential (primary) hypertension metoprolol tartrate Discontinued Reason: Doctor's Order 50 mg PO BID 90 days 180 tabs 3RF Coding Level of Care Code Est Pt Level 4 (62263) Diagnoses Hypertension I10 Hypothyroid E03.9 Morbid obesity E66.01 A-fib I48.91 Gout M10.9
== END 2024-01-04 10:58 | disposition home or self-care (01) ==
PROVIDERS: PCP Internal Medicine; Visit Provider Internal Medicine
DX: I10 Essential (primary) hypertension (principal); E66.01 Morbid (severe) obesity due to excess calories; I48.91 Unspecified atrial fibrillation; Z68.42 Body mass index [BMI] 45.0-49.9, adult; E03.9 Hypothyroidism, unspecified; M10.9 Gout, unspecified
CPT/HCPCS: 99214

== ENCOUNTER 2024-02-28 13:21 | Outpatient (AMB) | payer OTHER, SELFPAY ==
[2024-02-28 13:24] VITALS: BP 120/60; PULSE 88; BMI 47.4
--- NOTE | 2024-02-28 13:24 | A.OFFVIS_ITS ---
Intake Vital Signs 02/28/24 13:24 Height 5 ft 1 in Weight 250 lb 14.177 oz BMI 47.4 BP 120/60 Blood Pressure Location Lt brachial Position Sitting Pulse 88 Pulse Source Pulse Oximeter Intake Visit Reasons: 3 mth f/up Intake Note: pt states that she is doing fine, Search Analyst Required: No Accompanied by: Self / Same As Patient Allergies erythromycin base Allergy (Intermediate, Verified 01/04/24 10:14) Abdominal Pain lisinopril Allergy (Intermediate, Verified 01/04/24 10:14) Rash Medication List - Last Reconciled 02/28/24 by Andrea Galarza MD cholecalciferol (vitamin D3) 50 mcg PO DAILY colchicine 0.6 mg PO DAILY levothyroxine 125 mcg PO DAILY metoprolol succinate ER 75 mg (1.5 x 50 mg) PO BID olmesartan-hydrochlorothiazide 40-25 mg 1 tab PO DAILY omeprazole 20 mg PO DAILY PRN rivaroxaban (Xarelto) 20 mg PO DAILY HPI HPI Comments History of Present Illness Details Pleasant 63 year female who is here for follow-up. She was seen in the hospital when she presented with paroxysmal atrial fibrillation. She reverted back to sinus rhythm on her own. She was started on Eliquis for anticoagulation. She has been doing well since then. Her blood pressure has been elevated at this stage. She was taking on Olmesartan-hydrochlorothiazide combination as well as atenolol 100 mg once a day. blood pressure in the office is 152/74. She is denying any chest pain. She has some dyspnea on exertion which she think is due to her obesity. She has been diagnosed with sleep apnea and just received a CPAP mask which she will be starting. She has felt pal pitations on couple of occasions but they were very short-lived and self- limiting. No bleeding issues. 11/17/2023: She returns for follow-up. She has 1 episode of dizziness and palpitations while she was out with her daughter for short lived. She also had some AFib episodes while she was in [place]. She is complaining of shortness of breath with activity. She is saying that this is somewhat chronic symptom and she feels limited by activity. She also has a lot of aching in her both legs. She is taking rivaroxaban for anticoagulation. No bleeding issues. She previously had a Lexiscan which was normal in August 2022. 02/28/2024: She returns for follow-up. S he continues to get some dyspnea on exertion with activity. No palpitations and has been stable from AFib point of view. She had echocardiography which showed normal LVEF and had Holter monitor which did not show any recurrence of atrial fibrillation. Blood pressure is well controlled. [facility] Medical History (Updated 02/28/24 @ 13:44 by Andrea Galarza MD) A-fib Hypothyroid Osteoporosis Urethral stenosis Depression with anxiety Thyroid cancer Acid reflux Kidney stone QAMAR (obstructive sleep apnea) Hypertension Knee pain, left Surgical History Hx of cystoscopy H/O colonoscopy History of partial hysterectomy History of thyroidectomy Family History Mother Lung cancer Father HTN (hypertension) Melanoma Social History Housing: House Alcohol intake: current Alcohol intake frequency: does not drink Patient Tobacco Use Status: Never used Tobacco e-Cigarette/Vaping Use: Never Used service: No Current occupational status: unemployed Current occupation: right handed Cognitive needs: No Hearing needs: No Vision needs: Yes Review of Systems Const Denies chills, Denies fatigue, Denies fever(s), Denies frequent falls, Denies weakness, Denies weight gain and Denies weight loss ENT Denies dizziness Card Denies chest pain, Denies leg edema, Denies lightheadedness, Denies palpitations, Denies dyspnea and Denies dyspnea on exertion Resp Denies cough, Denies dyspnea and Denies dyspnea on exertion GI Denies hematochezia Musc Denies abnormal gait, Denies muscle weakness, Denies numbness, Denies radiating pain into limb and Denies tingling Neuro Denies abnormal gait, Denies dizziness, Denies frequent falls, Denies numbness, Denies tingling and Denies weakness Endo Denies fatigue and Denies palpitations Physical Exam Vital Signs: Last Vital Signs Pulse 88 02/28/24 13:24 BP 120/60 02/28/24 13:24 BMI result Body Mass Index 47.4 GENERAL APPEARANCE: in no acute distress, pleasant. Obese. NECK: no carotid bruit, no jugular venous distention. SKIN: no suspicious lesions, warm and dry. HEART: no murmurs, regular rate and rhythm. LUNGS: clear to auscultation bilaterally. ABDOMEN: soft, nontender. EXTREMITIES: + edema. PERIPHERAL PULSES: equal. NEUROLOGIC: No gross deficits, AAO X 3 Assessment & Plan Assessment & Plan (1) A-fib: Comment: paroxysmal, Echo and stress test nl 08/20, f/u cardiology Code(s): I48.91 - Unspecified atrial fibrillation (2) Dyspnea: Code(s): R06.00 - Dyspnea, unspecified (3) Equivocal stress test: Code(s): R94.39 - Abnormal result of other cardiovascular function study Plan Pleasant 63-year-old female who is here for follow-up. She has background history of paroxysmal atrial fibrillation. She is on rivaroxaban and metoprolol succinate 75 mg daily. No palpitations or symptoms from atrial fibrillation currently. Blood pressure is well controlled on the current regimen. She is dyspnea on exertion which has been ongoing. She was referred for exercise stress test but she had poor functional capacity and our plan was to consider [id number] heart catheterization if the dyspnea continues to progress. We had discussion about that and I gave her an option to do coronary CTA angiogram and she is agreeable to that. We will arrange that for her. Obviously if that shows any issues then we will arrange invasive assessment. Also if coronary CTA is normal then it will open door for using flecainide/propafenone for her in case she develops episodes of atrial fibrillation. Exercise and weight loss will definitely help her as she is overweight. Follow-up with us in few months. Thank you for allowing me to participate in the care of your patient. Please feel free to contact me if you have any questions. Orders: Orders Basic Metabolic Panel Today R94.39 - Abnormal result of other cardiovascular function study CT Cardiac Coronary Angio Today R94.39 - Abnormal result of other cardiovascular function study Coding Level of Care Code Est Pt Level 4 (75104) Diagnoses A-fib I48.91 Dyspnea R06.00 Equivocal stress test R94.39
== END 2024-02-28 13:58 | disposition home or self-care (01) ==
PROVIDERS: PCP Internal Medicine; Visit Provider Internal Medicine Cardiovascular Disease
DX: I48.91 Unspecified atrial fibrillation (principal); R06.00 Dyspnea, unspecified; R94.39 Abnormal result of other cardiovascular function study
CPT/HCPCS: 99214

== ENCOUNTER → 2024-02-28 13:21 | Outpatient (BNVA) | payer OTHER, SELFPAY | PROVIDERS: PCP Internal Medicine; Visit Provider Internal Medicine Cardiovascular Disease ==

== ENCOUNTER 2024-05-26 11:29 | Outpatient (REF) | payer OTHER, SELFPAY ==
[2024-05-26 13:34] LABS: Anion Gap 13 (12-20); Blood Urea Nitrogen 17 mg/dL (9-16); Calcium 9.1 mg/dL (8.4-10.2); Carbon Dioxide 33 mmol/L (22-29); Chloride 101 mmol/L (96-108); Estimated Glomerular Filt Rate > 60; Glucose Random 133 mg/dL (60-115); Potassium 4.2 mmol/L (3.3-5.1); Sodium 143 mmol/L (135-145)
== END 2024-05-26 11:30 | disposition home or self-care (01) ==
LOC: HO.HMGCLDS 11:29
PROVIDERS: PCP Internal Medicine; Visit Provider Internal Medicine Cardiovascular Disease
DX: R94.39 Abnormal result of other cardiovascular function study (principal)
CPT/HCPCS: 36415; 80048

== ENCOUNTER 2024-06-14 09:51 | Outpatient (AMB) | payer OTHER, SELFPAY ==
[2024-06-14 10:03] VITALS: BP 120/64; PULSE 86; BMI 48.6
--- NOTE | 2024-06-14 10:03 | A.OFFVIS_ITS ---
Vital Signs 06/14/24 10:03 Height 5 ft 1 in Weight 257 lb 7.999 oz BMI 48.6 BP 120/64 Blood Pressure Location Rt radial Position Sitting Pulse 86 Pulse Source Pulse Oximeter Intake Visit Reasons: 3 mth f/up cta Intake Note: pt is here for 3mth f/up after her CTA, pt is doing fine Ear Specialist Required: No Accompanied by: Self / Same As Patient Allergies erythromycin base Allergy (Intermediate, Verified 01/04/24 10:14) Abdominal Pain lisinopril Allergy (Intermediate, Verified 01/04/24 10:14) Rash Medication List - Last Reconciled 06/14/24 by Andrea Galarza MD cholecalciferol (vitamin D3) 50 mcg PO DAILY colchicine 0.6 mg PO DAILY levothyroxine 125 mcg PO DAILY metoprolol succinate ER 75 mg (1.5 x 50 mg) PO BID olmesartan-hydrochlorothiazide 40-25 mg 1 tab PO DAILY omeprazole 20 mg PO DAILY PRN rivaroxaban (Xarelto) 20 mg PO DAILY HPI Comments Details: Pleasant 63 year female who is here for follow-up. She was seen in the hospital when she presented with paroxysmal atrial fibrillation. She reverted back to sinus rhythm on her own. She was started on Eliquis for anticoagulation. She has been doing well since then. Her blood pressure has been elevated at this stage. She was taking on Olmesartan-hydrochlorothiazide combination as well as atenolol 100 mg once a day. blood pressure in the office is 152/74. She is denying any chest pain. She has some dyspnea on exertion which she think is due to her obesity. She has been diagnosed with sleep apnea and just received a CPAP mask which she will be starting. She has felt palpitations on couple of occasions but they were very short-lived and self- limiting. No bleeding issues. 11/17/2023: She returns for follow-up. She has 1 episode of dizziness and palpitations while she was out with her daughter for short lived. She also had some AFib episodes while she was in [place]. She is complaining of shortness of breath with activity. She is saying that this is somewhat chronic symptom and she feels limited by activity. She also has a lot of aching in her both legs. She is taking rivaroxaban for anticoagulation. No bleeding issues. She previously had a Lexiscan which was normal in August 2022. 02/28/2024: She returns for follow-up. She continues to get some dyspnea on ex ertion with activity. No palpitations and has been stable from AFib point of view. She had echocardiography which showed normal LVEF and had Holter monitor which did not show any recurrence of atrial fibrillation. Blood pressure is well controlled. 06/14/24: She returns for follow-up. Blood pressure is well controlled. She continues to get shortness of breath. She also has some lower extremity edema. Denying any orthopnea or PND but has known sleep apnea and has not been using her CPAP regularly. I have advised her that she should be using it regularly. She also has daytime sleepiness and fatigue which slows her down and probably adds to the deconditioning. She did not have any lung testing previously. [facility] Medical History (Updated 06/14/24 @ 10:25 by Andrea Galarza MD) A-fib Hypothyroid Osteoporosis Urethral stenosis Depression with anxiety Thyroid cancer Acid reflux Kidney stone QAMAR (obstructive sleep apnea) Hypertension Knee pain, left Surgical History Hx of cystoscopy H/O colonoscopy History of partial hysterectomy History of thyroidectomy Family History Mother Lung cancer Father HTN (hypertension) Melanoma Social History Housing: House Alcohol intake: current Alcohol intake frequency: does not drink Patient Tobacco Use Status: Never used Tobacco e-Cigarette/Vaping Use: Never Used service: No Current occupational status: unemployed Current occupation: right handed Cognitive needs: No Hearing needs: No Vision needs: Yes Review of Systems Const Denies chills, Denies fatigue, Denies fever(s), Denies frequent falls, Denies weakness, Denies weight gain and Denies weight loss ENT Denies dizziness Card Denies chest pain, Denies leg edema, Denies lightheadedness, Denies palpitations, Denies dyspnea and Denies dyspnea on exertion Resp Denies cough, Denies dyspnea and Denies dyspnea on exertion GI Denies hematochezia Musc Denies abnormal gait, Denies muscle weakness, Denies numbness, Denies radiating pain into limb and Denies tingling Neuro Denies abnormal gait, Denies dizziness, Denies frequent falls, Denies numbness, Denies tingling and Denies weakness Endo Denies fatigue and Denies palpitations Physical Exam Vital Signs: Last Vital Signs Pulse 86 06/14/24 10:03 BP 120/64 06/14/24 10:03 BMI result Body Mass Index 48.6 GENERAL APPEARANCE: in no acute distress, pleasant. Obese. NECK: no carotid bruit, no jugular venous distention. SKIN: no suspicious lesions, warm and dry. HEART: no murmurs, regular rate and rhythm. LUNGS: clear to auscultation bilaterally. ABDOMEN: soft, nontender. EXTREMITIES: + edema. PERIPHERAL PULSES: equal. NEUROLOGIC: No gross deficits, AAO X 3 Assessment & Plan Assessment & Plan (1) Peripheral edema: Code(s): R60.0 - Localized edema Category: Medical (2) A-fib: Comment: paroxysmal, Echo and stress test nl 08/20, f/u cardiology Code(s): I48.91 - Unspecified atrial fibrillation Category: Medical (3) Dyspnea: Code(s): R06.00 - Dyspnea, unspecified Category: Medical Plan 63-year-old female with background of hypertension, paroxysmal atrial fibrillation and dyspnea on exertion. From AFib point of view she is stable currently on metoprolol succinate. Rivaroxaban 20 mg daily for anticoagulation. She underwent coronary CTA which did not show any significant disease. Flecainide pill in the pocket can be an option for her in the future in case she has recurrent episodes. In terms of her dyspnea, she does not have coronary disease based on CTA. She has some peripheral edema and we will try low-dose diuretics for few weeks to see if that makes a difference in her shortness of breath. I am also checking pulmonary function test and referring her for further assessment with pulm onology. I have advised her that exercise and weight loss will definitely help her breathing. She also has sleep apnea and has not been able to use the CPAP frequently and that probably is also adding to her shortness of breath and fatigue. Follow-up with us in few months. Thank you for allowing me to participate in the care of your patient. Please feel free to contact me if you have any questions. Orders: Orders PFT pulmonary function test Today R06.00 - Dyspnea, unspecified Referrals Pulmonology Referral R06.00 - Dyspnea, unspecified Medications: New furosemide (Lasix) 20 mg PO DAILY 30 tabs 0RF R60.0 - Localized edema Coding Level of Care Code Est Pt Level 4 (45425) Diagnoses Peripheral edema R60.0 A-fib I48.91 Dyspnea R06.00
== END 2024-06-14 10:31 | disposition home or self-care (01) ==
PROVIDERS: PCP Internal Medicine; Visit Provider Internal Medicine Cardiovascular Disease
DX: R60.0 Localized edema (principal); I48.91 Unspecified atrial fibrillation; R06.00 Dyspnea, unspecified
CPT/HCPCS: 99214

== ENCOUNTER → 2024-06-14 09:51 | Outpatient (BNVA) | payer OTHER, SELFPAY | PROVIDERS: PCP Internal Medicine; Visit Provider Internal Medicine Cardiovascular Disease ==

== ENCOUNTER 2024-07-26 09:20 | Outpatient (REF) | payer OTHER, SELFPAY ==
--- NOTE | ~2024-07-26 | MM_ITS ---
EXAMINATION: MM SCREENING DIGITAL BREAST TOMOSYNTHESIS, BILATERAL CLINICAL INFORMATION: Screening. Asymptomatic. COMPARISON: Mammography: Comparison is made with available prior exams. TECHNIQUE: Digital breast tomosynthesis is performed in both the craniocaudal and mediolateral oblique views along with computer-aided detection (CAD). Synthesized 2D images are generated from the tomosynthesis. FINDINGS: The breasts are heterogeneously dense, which may obscure small masses (ACR BI-RADS breast composition Category c). Right: Spiculated mass in the upper outer quadrant middle depth. No suspicious calcifications or other abnormal findings. Right upper outer quadrant marker clip. Left: Focal asymmetry central outer breast anterior to middle depth. There are no abnormal calcifications, or other abnormalities. MM/MM tomosynthesis screening BI IMPRESSION: Right: Spiculated mass in the upper outer quadrant middle depth. Additional imaging and ultrasound recommended at this time. Left: Focal asymmetry central outer breast anterior to middle depth. Additional imaging and possible ultrasound are recommended at this time. ASSESSMENT: BI-RADS BI-RADS 0 - Incomplete: Needs additional Imaging. RECOMMENDATION: 1. Additional views of the bilateral breasts recommended at this time. 2. Targeted ultrasound if warranted after review of the additional views. 3. Radiology department staff will contact the patient for additional imaging. Additional Imaging required This examination should not preclude the clinical evaluation of a suspicious palpable abnormality. This patient's information was entered into a reminder system with a target due date for their next mammogram. Electronically signed by: Ruma Pearson DO 08/17/2024 06:31 PM EDT
== END 2024-07-26 09:21 | disposition home or self-care (01) ==
LOC: HO.MAMMO 09:20
PROVIDERS: PCP Internal Medicine; Visit Provider Obstetrics & Gynecology
DX: Z12.31 Encounter for screening mammogram for malignant neoplasm of breast (principal)
CPT/HCPCS: 77063; 77067

== ENCOUNTER → 2024-07-26 09:30 | Outpatient (BNV) | payer OTHER, SELFPAY | PROVIDERS: PCP Internal Medicine; Visit Provider Internal Medicine | DX: Z12.31 Encounter for screening mammogram for malignant neoplasm of breast (principal) | CPT/HCPCS: 77063; 77067 ==

== ENCOUNTER 2024-07-27 10:36 | Outpatient (AMB) | payer OTHER, SELFPAY ==
[2024-07-27 10:41] VITALS: BP 112/62; PULSE 88; O2SAT 96; BMI 48.1
--- NOTE | 2024-07-27 10:41 | A.OFFVIS_ITS ---
Vital Signs 07/27/24 10:41 Height 5 ft 1 in Weight 254 lb 10.142 oz BMI 48.1 BP 112/62 Blood Pressure Location Rt brachial Position Sitting Pulse 88 Pulse Oximetry (%) 96 Oxygen Delivery Method Room Air Intake Visit Reasons: Dyspnea Allergies erythromycin base Allergy (Intermediate, Verified 07/27/24 10:48) Abdominal Pain lisinopril Allergy (Intermediate, Verified 07/27/24 10:48) Rash HPI HPI Dyspnea: Details: 63-year-old lady, nonsmoker, with underlying QAMAR on CPAP, paroxysmal AFib, and essentially otherwise normal cardiac workup referred for evaluation of pulmonary component dyspnea. Patient reports dyspnea on exertion after walking for several 100 yd. She does have family history of lung cancer in her mother who was not a smoker. Patient states that she previously has used albuterol MDI for possible mild asthma, however she does not remember it ever provide significant relief. Patient does have recent pulmonary function testing performed at [facility] showing moderate obstruction with no bronchodilator response and normal diffusion capacity which is inconsistent with COPD or emphysema. [facility] Medical History (Updated 06/14/24 @ 10:25 by Andrea Galarza MD) A-fib Hypothyroid Osteoporosis Urethral stenosis Depression with anxiety Thyroid cancer Acid reflux Kidney stone QAMAR (obstructive sleep apnea) Hypertension Knee pain, left Surgical History Hx of cystoscopy H/O colonoscopy History of partial hysterectomy History of thyroidectomy Family History Mother Lung cancer Father HTN (hypertension) Melanoma Social History Housing: House Alcohol intake: current Alcohol intake frequency: does not drink Patient Tobacco Use Status: Never used Tobacco e-Cigarette/Vaping Use: Never Used service: No Current occupational status: unemployed Current occupation: right handed Cognitive needs: No Hearing needs: No Vision needs: Yes Review of Systems Const Denies daytime sleepiness, Denies excessive sweating, Denies fatigue, Denies fever(s), Denies lethargy, Denies malaise, Denies night sweats, Denies snoring and Denies weight loss Eyes Denies blurry vision and Denies itchy eyes ENT Denies nasal congestion, Denies post nasal drip, Denies sinus pain, Denies sinus pressure and Denies other ( Thrush) Card Denies chest pain, Denies pedal edema, Denies dyspnea, Reports dyspnea on exertion, Denies orthopnea and Denies paroxysmal nocturnal dyspnea Resp Denies cough, Denies hemoptysis, Denies excessive phlegm production, Denies dyspnea, Reports dyspnea on exertion, Denies snoring and Denies wheezing GI Denies abdominal pain and Denies heartburn Musc Denies myalgias, Denies arthralgias and Denies joint swelling Skin/Breast Denies rash Neuro Denies memory loss and Denies seizure-like activity Psych Denies abnormal sleep pattern, Denies anxiety and Denies memory loss Endo Denies excessive sweating, Denies fatigue and Denies heat intolerance Maynor/Lymph Denies easy bruising Aller/Immun Denies itchy eyes, Denies seasonal rhinorrhea and Denies wheezing Physical Exam Vital Signs: Last Vital Signs Pulse 88 07/27/24 10:41 BP 112/62 07/27/24 10:41 Pulse Ox 96 07/27/24 10:41 Oxygen Delivery Method Room Air 07/27/24 10:41 BMI result Body Mass Index 48.1 Const General: no acute distress and alert Nutritional Appearance: obese Orientation/consciousness: Other orientation findings ( oriented) HEENT Head: Yes atraumatic Eyes General: appearance normal, both eyes and all related structures Sclerae: sclerae normal EOM: EOMs intact bilaterally Neck Neck: Yes supple Lymphatic: no lymphadenopathy noted Resp Effort & Inspection: normal respiratory effort and no use of accessory muscles Auscultation: clear to auscultation bilaterally Cardio Rate: regular rate Rhythm: regular rhythm Heart sounds: no gallops, no murmurs and no rubs Skin General skin exam: other ( warm) Extrem General: No clubbing, No cyanosis and No edema Assessment & Plan Assessment & Plan (1) Dyspnea: Code(s): R06.00 - Dyspnea, unspecified Category: Medical Plan: Unclear etiology at this time. Results of pulmonary function test reviewed. Will obtain cardiopulmonary exercise testing. (2) Obstructive sleep apnea: Code(s): G47.33 - Obstructive sleep apnea (adult) (pediatric) Category: Medical Plan: Suboptimal compliance with current noninvasive positive pressure ventilation therapy. Patient has been advised to be more consistent with her noninvasive positive pressure ventilation therapy. Orders: Orders CA cardiopulmonary stress test Today R06.00 - Dyspnea, unspecified Coding Level of Care Code New Pt Level 4 (04543) Diagnoses Dyspnea R06.00 Obstructive sleep apnea G47.33
== END 2024-07-27 11:07 | disposition home or self-care (01) ==
PROVIDERS: PCP Internal Medicine; Visit Provider Internal Medicine Pulmonary Disease
DX: R06.00 Dyspnea, unspecified (principal); G47.33 Obstructive sleep apnea (adult) (pediatric)
CPT/HCPCS: 99204

== ENCOUNTER → 2024-07-27 10:36 | Outpatient (BNVA) | payer OTHER, SELFPAY | PROVIDERS: PCP Internal Medicine; Visit Provider Internal Medicine Pulmonary Disease ==

== ENCOUNTER 2024-08-24 09:53 | Outpatient (REF) | payer OTHER, SELFPAY ==
--- NOTE | ~2024-08-24 | US_ITS ---
EXAMINATION: MM DIAGNOSTIC DIGITAL BREAST TOMOSYNTHESIS, BILATERAL US BREAST LIMITED, BILATERAL MAMMOGRAPHY: CLINICAL INFORMATION: Diagnostic exam for area of architectural distortion abutting a known benign hamartomatous mass in the approximate 10:00 axis right breast, mid to posterior one third, and a focal asymmetric density left breast approximate 3:30 o'clock axis, anterior one third, both seen on screening exam. Patient has history of 2 remote excisional biopsies left breast showing fibroadenoma and hamartoma, an needle biopsy right breast in 2011 showing findings consistent with hamartoma. COMPARISON: Mammography: 07/18/2024, 07/21/2023, 06/24/2022, 06/16/2021, 11/26/2020, and exams dating back to March 18, 2012. TECHNIQUE: Digital breast tomosynthesis is performed in the following views: Full field 3-D bilateral mediolateral views, as well as 3-D spot compression right CC x2, right MLO x3, right mL x1, as well as left CC and left MLO spot compression views obtained. This was followed by bilateral targeted breast ultrasound. FINDINGS: There are scattered areas of fibroglandular density (ACR BI-RADS breast composition Category b). Once again a bilobed mass with internal fat density, and biopsy clip in the lateral aspect, upper outer right breast posterior one third, consistent with known hamartoma. Abutting the medial mid aspect, and directly medial to the biopsy clip is a spiculated mass measuring 7 mm in diameter, new from prior exams which persists on spot compression views. Ultrasound will be performed. In the left breast, a focal asymmetry in the approximate 3:30 clock axis anterior one third, mildly persists on spot compression view although has interspersed fat density, and in retrospect appears similar to exams dating back to 2018 suggesting benignity. This may be an area of scarring from prior excisional biopsies, or an island of normal tissue. This will also be evaluated with ultrasound but given stability is almost certainly benign. ULTRASOUND: CLINICAL INFORMATION: As above COMPARISON: Bilateral breast ultrasound 05/21/2020. Ultrasound-guided biopsy right breast 06/24/2012 TECHNIQUE: Targeted sonographic evaluation was performed using a high frequency linear transducer. Selected archived documentation. FINDINGS: RIGHT BREAST: There is a hamartomatous mass 10:00 axis, 12 cm from the nipple, with internal fat measuring 1.7 x 1.4 x 2.6 cm. This finding is benign. There is a benign cluster of cysts immediately medial to this hamartomatous mass, also benign. Slightly more medial and slightly superior, there is an irregular markedly hypoechoic indistinct mass with no posterior features, no internal or surrounding color Doppler signal, although mild echogenic changes surrounding. This is indeterminate and mildly suspicious. This likely correlates with the spiculated finding on mammography. Ultrasound-guided biopsy is recommended, with clip placement and correlation with post-clip mammograms. A normal low axillary lymph node is noted. No pathologic nodes are noted in the right axillary region. LEFT BREAST: No suspicious masses, abnormal shadowing, cystic abnormalities, or areas of architectural abnormality. No ultrasound correlate to the focal asymmetric density left breast. This finding is benign and no further follow-up recommended. US/US breast BI limited mamm only IMPRESSION: -Suspicious irregular hypoechoic mass RIGHT breast 10:00 axis, 10 cm from the nipple, measuring an estimated 1.2 x 1.0 x 1.0 cm on ultrasound. Ultrasound-guided biopsy recommended with clip placement and correlation postbiopsy mammography. -There are no findings suspicious for malignancy LEFT breast. Benign findings unchanged from prior studies. -Findings and RIGHT breast recommendations were discussed with the patient in detail, who appears in understanding of the overall findings and plan. OVERALL ASSESSMENT: Mammography: BI-RADS 4 - Suspicious finding Ultrasound: BI-RADS 4 - Suspicious finding RECOMMENDATION: Biopsy recommended Electronically signed by: Solomon King MD 08/24/2024 01:38 PM EDT
== END 2024-08-24 09:54 | disposition home or self-care (01) ==
LOC: HO.MAMMO 09:53
PROVIDERS: PCP Internal Medicine; Visit Provider Internal Medicine
DX: Z12.31 Encounter for screening mammogram for malignant neoplasm of breast (principal); R92.8 Other abnormal and inconclusive findings on diagnostic imaging of breast
CPT/HCPCS: 76642; 77062; 77066

== ENCOUNTER → 2024-08-24 10:00 | Outpatient (BNV) | payer OTHER, SELFPAY | PROVIDERS: PCP Internal Medicine; Visit Provider Radiology Diagnostic Radiology | DX: R92.8 Other abnormal and inconclusive findings on diagnostic imaging of breast (principal) | CPT/HCPCS: 76642; 77062; 77066 ==

== ENCOUNTER 2024-08-28 07:56 | Outpatient (REF) | payer OTHER, SELFPAY ==
--- NOTE | ~2024-08-28 | MM_ITS ---
PROCEDURE: US GUIDED BREAST BIOPSY, RIGHT CLINICAL INFORMATION: Small stellate mass right breast 10:00 axis, 17 cm from the nipple, recommended for biopsy. Of note, patient does have atrial fibrillation, and did take Xarelto the night before. Increased risk of bleeding was explained to the patient and accepted the risks. Patient has history of 2 remote excisional biopsies left breast showing fibroadenoma and hamartoma, and a needle biopsy right breast in 2011 showing findings consistent with hamartoma. COMPARISON: 08/24/2024 right breast diagnostic mammography and ultrasound. Bilateral breast ultrasound 05/21/2020. Ultrasound-guided biopsy right breast 06/24/2012 PROCEDURAL DETAILS: The details of the procedure, as well as the risks, benefits, and alternatives to the procedure were explained to the patient in detail and all of her questions were answered, after which written informed consent was obtained. Site and side were confirmed. Prior to the procedure, sonography revealed the small hypoechoic irregular mass at the 10:00 axis right breast, estimated diameter 1.2 x 1.0 x 1.0 cm by ultrasound. A time-out was performed, the lesion intended for biopsy was targeted, and the skin of the overlying right breast was then marked, prepped and draped in the usual sterile fashion. Using sonographic guidance, sterile technique, and 1% lidocaine without epinephrine for local anesthesia, multiple core biopsies were obtained through the targeted area with a 14G spring loaded [employer] core biopsy device. There was real-time confirmation of appropriate needle passage. Sampling was documented. At the completion of tissue sampling, a single butterfly shaped metallic clip was deposited at the biopsy site. There was no evidence of immediate complication. No significant bleeding occurred. SPECIMEN: 3 well formed core samples were obtained. DIGITAL POST-PROCEDURE MAMMOGRAPHY: Breast density: The tissue contains scattered areas of fibroglandular density. BI-RADS version 5, category B. There are no new mammographic findings demonstrated. The postprocedure 2-view direct digital mammogram reveals satisfactory and accurate positioning of the biopsy clip. No hematoma present. The patient tolerated the procedure well and, after assuring adequate hemostasis, was discharged in good condition after reviewing postbiopsy breast care instructions. Final pathology results are pending. MM/MM tomosynthesis diagnostic RT IMPRESSION: 1. No immediate complication from ultrasound-guided percutaneous biopsy right breast. 2. Ultrasound was used to localize and guide marker clip placement. 3. The 2-view direct digital postprocedure mammogram reveals satisfactory positioning of the biopsy clip. 4. Final pathology results are pending. A separate report with final recommendations will be issued once these results are made available. Electronically signed by: Solomon King MD 08/28/2024 10:16 AM EDT
[2024-08-28] MEDS: Sodium Bicarbonate 8.4% 50 MEQ/50 ML VIAL SUBCUT (09:37)
[2024-08-28] MEDS: Lidocaine HCl 1 % 20 ML VIAL 9 ML SUBCUT (09:38)
== END 2024-08-28 07:57 | disposition home or self-care (01) ==
LOC: HO.MAMMO 07:56
PROVIDERS: PCP Internal Medicine; Visit Provider Obstetrics & Gynecology
DX: C50.411 Malignant neoplasm of upper-outer quadrant of right female breast (principal)
CPT/HCPCS: 19083; 77061; 77065; 88305; 88341; 88342; 88360; A4648; C1894

== ENCOUNTER → 2024-08-28 08:00 | Outpatient (BNV) | payer OTHER, SELFPAY | PROVIDERS: PCP Internal Medicine; Visit Provider Radiology Diagnostic Radiology | DX: N63.11 Unspecified lump in the right breast, upper outer quadrant (principal) | CPT/HCPCS: 19083; 77065 ==

== ENCOUNTER 2024-09-01 08:22 | Outpatient (AMB) | payer OTHER, SELFPAY ==
[2024-09-01 08:24] VITALS: BMI 47.4
--- NOTE | 2024-09-01 08:24 | MHC.OFFVIS ---
Vital Signs 09/01/24 08:24 Height 5 ft 1 in Weight 251 lb BMI 47.4 Intake Visit Reasons: newly diagnosed GRADE 1 INVASIVE DUCTAL CARCINOMA Intake Note: Patient is seen in office for new diagnosed Invasive Ductal Carcinoma Grade I. Pt c/o: reports no breast complaints at this time. mm/us/path: 08/28/24 Lead Assembler Required: No Accompanied by: Other Relationship Allergies erythromycin base Allergy (Intermediate, Verified 09/01/24 08:36) Abdominal Pain lisinopril Allergy (Intermediate, Verified 09/01/24 08:36) Rash Medication List - Last Reconciled 09/01/24 by Piotr Crenshaw MD cholecalciferol (vitamin D3) 50 mcg PO DAILY colchicine 0.6 mg PO DAILY furosemide 20 mg PO DAILY levothyroxine 125 mcg PO DAILY metoprolol succinate ER 75 mg (1.5 x 50 mg) PO BID olmesartan-hydrochlorothiazide 40-25 mg 1 tab PO DAILY omeprazole 20 mg PO DAILY PRN rivaroxaban (Xarelto) 20 mg PO DAILY HPI Comments Details: 64-year-old female patient presenting with a recent mammogram dated 07/26/2024 with follow-up images obtained on 08/24/2024 with ultrasound also 08/24/2024. This revealed a radial scar in the right breast which was felt to be suspicious for malignancy. She subsequently underwent ultrasound-guided core biopsy on 08/28/2024. Pathology revealed a right breast infiltrating ductal carcinoma, grade 1, ER positive, OH positive, HER2 Brandon negative, Ki-67 low. She denies a previous history of breast cancer . Her family history is negative for breast cancer. Her father has history of malignant melanoma. She is , and breastfed both her children. She denies a history of breast trauma or breast infections. She did have a previous left breast biopsy with needle localization performed by Dr. Rooney which was benign. [facility] Medical History A-fib Hypothyroid Osteoporosis Urethral stenosis Depression with anxiety Thyroid cancer Acid reflux Kidney stone QAMRA (obstructive sleep apnea) Hypertension Knee pain, left Surgical History Hx of cystoscopy H/O colonoscopy History of partial hysterectomy History of thyroidectomy Family History Mother Lung cancer Father HTN (hypertension) Melanoma Social History Housing: House Alcohol intake: current Alcohol intake frequency: does not drink Patient Tobacco Use Status: Never used Tobacco e-Cigarette/Vaping Use: Never Used service: No Current occupational status: unemployed Current occupation: right handed Cognitive needs: No Hearing needs: No Vision needs: Yes Female Reproductive History Menstrual Age of Menarche: 13 Total pregnancies: 2 Review of Systems Const All systems reviewed & are unremarkable except as noted in HPI and below Denies chills, Denies fever(s), Denies headache(s), Denies poor appetite and Denies weakness ENT Denies headache(s) Card Denies chest pain, Denies irregular heart rhythm, Denies palpitations and Denies dyspnea Resp Denies cough, Denies excessive phlegm production and Denies dyspnea GI Denies abdominal pain, Denies bloating, Denies change in bowel habits, Denies constipation, Denies heartburn, Denies diarrhea, Denies nausea and Denies vomiting Denies urinary frequency Musc Denies back pain, Denies muscle weakness and Denies numbness Skin/Breast Denies changing lesions and Denies unusual bruising Neuro Denies headache(s), Denies numbness, Denies paresthesias and Denies weakness Psych Denies anxiety and Denies depression Endo Denies palpitations Maynor/Lymph Denies lymphadenopathy Physical Exam Const General: cooperative and no acute distress Nutritional Appearance: well nourished Orientation/consciousness: patient oriented x3 Limitations: ambulation with walker HEENT Head: Yes normocephalic and Yes atraumatic Ears: hearing grossly normal bilaterally Chest Other: Left breast: No skin change, Area of ecchymosis in the upper outer quadrant at the site of previous needle core biopsy, no nipple retraction, no nipple discharge, no palpable mass, no enlarged lymph nodes. Right breast: No skin change, no nipple retraction, no nipple discharge, no palpable mass, no enlarged lymph nodes Chest/axillae images: 1. area of ecchymosis upper outer quadrant right breast Resp Effort & Inspection: normal respiratory effort, no audible wheezes, no cough and no respiratory distress Cardio Jugular venous distension: no JVD GI Inspection: Yes normal to inspection Skin Other: Warm, dry, no rash Neuro General: patient oriented x3 Extrem General: Yes no clubbing, cyanosis or edema Results Reviewed Results Reviewed: Mammo post needle biopsy: Pathology Results: Breast, right at 10 o'clock, biopsy: Invasive ductal carcinoma, MSBR grade 1. Estrogen receptor: Positive (greater than 95% of tumor cells; moderate to strong intensity) Progesterone receptor: Positive (60% of tumor cells; moderate intensity) HER2: Low (1+) Proliferation index: Low (15% of tumor cells by Ki-67 immunostain) Breast Biopsy Data Synopsis Procedure: Core biopsy Specimen laterality: Right at 10 o'clock Histologic type: Ductal Histologic grade (Kendrick/MSBR histologic score): 1 - Glandular/tubular differentiation: Score: 2 - Nuclear pleomorphism: Score: 1 - Mitotic rate: Score: 1 Tumor size: Largest linear diameter: 7 mm Ductal carcinoma in situ: Not identified Lymphovascular invasion: Not identified Microcalcifications: Present Note: Some of the listed elements may change with subsequent review of the entire lesion Assessment & Plan Assessment & Plan (1) Invasive ductal carcinoma of right breast in female: Code(s): C50.911 - Malignant neoplasm of unspecified site of right female breast Category: Medical Plan 64-year-old female patient presenting with a recent screening mammogram with follow-up diagnostic images which revealed an area of radial scar located in the upper outer quadrant of the right breast. Subsequent ultrasound-guided core biopsy revealed a right breast invasive ductal carcinoma, grade 1, ER / OH positive, HER2 Brandon negative, Ki-67 low. On examination her breasts revealed no suspicious findings and no enlarged lymph nodes. Patient clinically is pT1 cN0 (clinical stage I). We discussed the surgical options including right breast lumpectomy with localizer and right axillary sentinel node biopsy. We also discussed next steps including radiation therapy and oncology evaluation. After discussion of the procedure, risks, and alternatives, she consents to the right breast lumpectomy with localizer, right axillary sentinel node biopsy which will be scheduled at her earliest convenience. She is welcome to call for any concerns or questions. Coding Level of Care Code New Pt Level 4 (02296) Complex EM visit Add On G2211 Diagnoses Invasive ductal carcinoma of right breast in female C50.911
== END 2024-09-01 08:55 | disposition home or self-care (01) ==
PROVIDERS: PCP Internal Medicine; Visit Provider Surgery
DX: C50.911 Malignant neoplasm of unspecified site of right female breast (principal)
CPT/HCPCS: 99204; G2211

== ENCOUNTER → 2024-09-01 08:22 | Outpatient (BNVA) | payer OTHER, SELFPAY | PROVIDERS: PCP Internal Medicine; Visit Provider Surgery ==

== ENCOUNTER 2024-09-13 11:03 | Inpatient (IN) | payer OTHER, SELFPAY ==
[2024-09-13] VITALS (11 sets, daily range): BP systolic 91–132; BP diastolic 42–71; PULSE 85–156; RESP 16–20; TEMP 36.6–36.9; O2SAT 94–98; BMI 47.2
--- NOTE | 2024-09-13 | ECG_ITS ---
Test Reason : CHANGE OF THE RYTHME Blood Pressure : / mmHG Vent. Rate : 081 BPM Atrial Rate : 000 BPM P-R Int : 000 ms QRS Dur : 120 ms QT Int : 402 ms P-R-T Axes : 000 079 052 degrees QTc Int : 466 ms Artifact in tracing Atrial fibrillation Right bundle branch block Abnormal ECG When compared with ECG of 13-SEP-2024 11:21, Vent. rate has decreased BY 58 BPM Referred By: Generic ED Physician Electronically Signed By:AGNIESZKA SOOD
--- NOTE | ~2024-09-13 | XR_ITS ---
EXAMINATION: XR CHEST 2 VIEW CLINICAL INFORMATION: Atrial fibrillation, shortness of breath COMPARISON: 08/25/2022 TECHNIQUE: PA and lateral views of the chest obtained. FINDINGS: The lungs are clear. There are no pleural effusions. The cardiomediastinal silhouette is stable. The right hemidiaphragm is elevated though unchanged. XR/XR chest 2V IMPRESSION: No acute disease or significant interval change. Electronically signed by: Henri Stevens MD 09/13/2024 01:45 PM EDT
--- NOTE | 2024-09-13 11:07 | ECG_ITS ---
Test Reason : afib ?rvr Blood Pressure : / mmHG Vent. Rate : 139 BPM Atrial Rate : 000 BPM P-R Int : 000 ms QRS Dur : 130 ms QT Int : 336 ms P-R-T Axes : 000 083 033 degrees QTc Int : 511 ms Atrial fibrillation with rapid ventricular response Right bundle branch block Abnormal ECG When compared with ECG of 25-AUG-2022 12:25, No significant change was found Referred By: Generic ED Physician Electronically Signed By:AGNIESZKA SOOD
[2024-09-13 11:38] LABS: MANUAL DIFF FLAG NO
[2024-09-13 11:40] LABS: Basophils Absolute Auto 0.1 X10*3/uL (0.0-0.2); Basophils Percent Auto 0.5 % (0-2); Eosinophils Absolute Auto 0.3 X10*3/uL (0.0-0.4); Eosinophils Percent Auto 1.9 % (0-4); Hematocrit 38.1 % (37.0-47.0); Imm Gran Abs Auto 0.11 X10*3/uL (0.00-0.03); Imm Gran Pct Auto 0.8 % (0.0-0.4); Lymphocytes Absolute Auto 2.9 X10*3/uL (1.2-4.9); Lymphocytes Percent Auto 20.6 % (20-40); Mean Corpuscular HGB Conc 31.5 g/dl (31.0-35.0); Mean Corpuscular Hemoglobin 26.9 pg (27.0-33.0); Mean Corpuscular Volume 85.4 fL (80.0-98.0); Mean Platelet Volume 9.5 fL (9.4-12.3); Monocytes Absolute Auto 0.8 X10*3/uL (0.1-1.2); Monocytes Percent Auto 5.8 % (2-11); NRBC Pct Auto 0.1 /100WBC (0.0-0.2); Neutrophils Percent Auto 70.4 % (45-73); Platelet Count 357 X10*3/uL (160-400); Red Blood Count 4.46 X10*6/uL (4.20-5.50); Red Cell Distribution Width 15.5 % (11.0-16.0); White Blood Count 14.2 X10*3/uL (4.8-10.8)
--- NOTE | 2024-09-13 11:41 | ED_ITS ---
HPI - Arrhythmia/Palpitations General Chief Complaint: Arrhythmia/Palpitations Stated Complaint: AFIB Time Seen by Provider: 09/13/24 11:36 Source: patient Mode of arrival: ambulatory Limitations: no limitations History of Present Illness HPI narrative: This is a pleasant 64 years old the female with history of paroxysmal AFib she presented to emergency room with rapid AFib/palpitation she went to preop she is supposed to have a lumpectomy she was found in rapid AFib center to emergency department she states that she did not take her metoprolol today. MD complaint: rapid heart beat and heart racing Onset (ago): hour(s) (3) Duration: constant Severity: moderate Context: occurred during rest Arrhythmia history: atrial fibrillation Associated symptoms: denies other symptoms Related Data Home Medications ?Medication ?Instructions ?Recorded ?Confirmed cholecalciferol (vitamin D3) 50 50 mcg PO DAILY 10/03/20 09/13/24 mcg (2,000 unit) capsule levothyroxine 125 mcg tablet 125 mcg PO DAILY 08/25/22 09/13/24 omeprazole 20 mg capsule,delayed 20 mg PO DAILY PRN Acid Reflux 11/17/23 09/13/24 release colchicine 0.6 mg tablet 0.6 mg PO DAILY PRN Outbreak 09/13/24 09/13/24 furosemide 20 mg tablet 20 mg PO BEDTIME 09/13/24 09/13/24 olmesartan 40 1 tab PO BEDTIME 09/13/24 09/13/24 mg-hydrochlorothiazide 25 mg tablet rivaroxaban 20 mg tablet (Xarelto) 20 mg PO DAILY@1700 09/13/24 09/13/24 Previous Rx's ?Medication ?Instructions ?Recorded metoprolol succinate 50 mg 75 mg (1.5 x 50 mg) PO BID #270 07/04/24 tablet,extended release 24 hr tabs Allergies Allergy/AdvReac Type Severity Reaction Status Date / Time erythromycin base Allergy Intermediate Abdominal Verified 09/13/24 11:19 Pain lisinopril Allergy Intermediate Rash Verified 09/13/24 11:19 Review of Systems 2 Constitutional: Constitutional: Reports no additional constitutional complaints ENT: Reports system reviewed and no additional complaints, except as documented Cardiovascular: Cardiovascular: Reports irregular heart rhythm PMFSH Past Medical History Attestation statement: The following information was validated with the patient. Source: unable to obtain Medical History Arthritis Depression HX: breast cancer SOB (shortness of breath) On anticoagulant therapy A-fib Hypothyroid Osteoporosis Urethral stenosis Depression with anxiety Thyroid cancer Acid reflux Kidney stone QAMAR (obstructive sleep apnea) Hypertension Knee pain, left Surgical History Hx of dilation of urethra Hx of cystoscopy H/O colonoscopy History of partial hysterectomy History of thyroidectomy Family History Family History Mother Lung cancer Father HTN (hypertension) Melanoma Social History Social History Housing: House Are you a primary direct care provider to a significant other at home: No Do you presently have visiting nurse or other home services: No Alcohol intake: current Alcohol intake frequency: does not drink Patient Tobacco Use Status: Never used Tobacco e-Cigarette/Vaping Use: Never Used Advance Directives: No Advance Directives Information Provided: No service: No Current occupational status: unemployed Current occupation: right handed Cognitive needs: No Hearing needs: No Vision needs: Yes Physical Exam 2 Vital Signs: Vital Signs: Last Vital Signs Temp 98.2 F 09/13/24 14:31 Pulse 108 H 09/13/24 14:31 Resp 20 09/13/24 14:31 BP 118/44 L 09/13/24 14:31 Pulse Ox 98 09/13/24 14:31 O2 Del Method Room Air 09/13/24 14:31 BMI result Body Mass Index 47.2 Const: General: cooperative, comfortable and no acute distress Nutritional Appearance: well nourished Orientation/consciousness: patient oriented x3 Limitations: no limitations HEENT: Head: Yes normal to inspection Ears: hearing grossly normal bilaterally General nose exam: Normal external nose present Mouth: Normal oral and palatal mucosa present Throat: Yes posterior oropharynx normal Neck: Neck: Yes normal visual inspection Thyroid: Thyroid normal Resp: Effort & Inspection: normal respiratory effort Auscultation: clear to auscultation bilaterally Cardio: Jugular venous distension: no JVD Rate: tachycardic GI: Inspection: Yes normal to inspection Palpation (GI): Soft to palpation, not firm and nontender Percussion: Yes normal to percussion Auscultation: normal bowel sounds Skin: General skin exam: no rashes or lesions noted, elasticity normal and turgor normal Lesions: no lesions Rashes: no rashes Neuro: General: patient oriented x3 Course Reevaluation(s) Reevaluation #1: still tachycardic despite IV lopressor will start diltiazem bolus and drip Time: 12:24 Medications Administered Discontinued Medications Generic Name Dose Route Start Last Admin Trade Name Freq PRN Reason Stop Dose Admin Diltiazem HCl 20 mg 09/13/24 12:20 09/13/24 12:57 Diltiazem Hcl 50 Mg/10 Ml Vial IVPUSH 09/13/24 12:21 20 mg STAT STA Administration Metoprolol Tartrate 5 mg 09/13/24 11:40 09/13/24 11:48 Metoprolol Tartrate 5 Mg/5 Ml Vial IVPUSH 09/13/24 11:41 5 mg ONCE ONE Administration Protocol Medical Decision Making Medical Decision Making MDM Narrative: Patient presented in rapid AFib she is already anticoagulated we will give her IV Lopressor Differential Diagnosis Differential Diagnoses: The differential diagnosis associated with the presentation includes Rapid AFib/mi Admission/Observation Consideration of admission/observation: Escalation of care including admission/observation considered Consult Healthcare Provider Management of the patient was discussed with: Hospitalist and Cost Reduction Engineer Spoke with Television Writer and Hospitalist Lab Data [facility] Lab Attestation statement: I reviewed the patient's lab results. 09/13/24 11:33 09/13/24 14:04 Labs: Lab Results 09/13/24 09/13/24 09/13/24 Range/Units 11:33 11:41 14:04 WBC 14.2 H (4.8-10.8) X10*3/uL RBC 4.46 (4.20-5.50) X10*6/uL Hgb 12.0 (12.0-16.0) g/dl Hct 38.1 (37.0-47.0) % MCV 85.4 (80.0-98.0) fL MCH 26.9 L (27.0-33.0) pg MCHC 31.5 (31.0-35.0) g/dl RDW 15.5 (11.0-16.0) % Plt Count 357 (160-400) X10*3/uL MPV 9.5 (9.4-12.3) fL Immature Gran % (Auto) 0.8 H (0.0-0.4) % Neut % (Auto) 70.4 (45-73) % Lymph % (Auto) 20.6 (20-40) % Harper % (Auto) 5.8 (2-11) % Eos % (Auto) 1.9 (0-4) % Baso % (Auto) 0.5 (0-2) % Lymph # (Auto) 2.9 (1.2-4.9) X10*3/uL Harper # (Auto) 0.8 (0.1-1.2) X10*3/uL Eos # (Auto) 0.3 (0.0-0.4) X10*3/uL Baso # (Auto) 0.1 (0.0-0.2) X10*3/uL Abs Immat Gran (auto) 0.11 H (0.00-0.03) X10*3/uL Absolute Neuts (auto) 10.0 H (2.0-8.3) x10*3/uL Absolute Nucleated RBC 0.020 H (0.0-0.012) X10*3/uL Nucleated RBC % (auto) 0.1 (0.0-0.2) /100WBC PT 18.5 H (10.9-12.4) SEC INR 1.6 H (0.9-1.1) APTT 40.7 H (26.0-36.8) SEC Sodium 144 (135-145) mmol/L Potassium 4.3 (3.3-5.1) mmol/L Chloride 104 (96-108) mmol/L Carbon Dioxide 30 H (22-29) mmol/L Anion Gap 14 (12-20) BUN 31 H (9-16) mg/dL Creatinine 1.18 (0.5-1.4) mg/dL Estim Creat Clear Calc 56.3 Estimated GFR 46 Random Glucose 125 H (60-115) mg/dL Calcium 9.6 (8.4-10.2) mg/dL Magnesium 1.9 (1.6-2.6) mg/dL Total Bilirubin 0.3 (0.0-1.0) mg/dL AST 12 (5-31) U/L ALT 13 (0-31) U/L Alkaline Phosphatase 69 (39-117) U/L Troponin I High Sens < 2.7 (<3.5-17.0) ng/L Total Protein 6.5 (6.5-8.0) g/dL Albumin 3.4 L (3.5-5.0) g/dL Influenza Type A (PCR) NEGATIVE (Negative) Influenza Type B (PCR) NEGATIVE (Negative) RSV RNA Qual (PCR) NEGATIVE (Negative) SARS-CoV-2 RNA (RT-PCR) NEGATIVE (Negative) Independent Interpretation I performed an independent interpretation of an: EKG Interpretation: EKG reviewed interpreted by me as atrial fibrillation right bundle branch block rate 140 Radiology Impression Discussion of test interpretation with radiology: I have reviewed the radiologist's reading. Radiologist Impression: NAD External Record Review External record reviewed: Inpatient record Chronic Conditions Patient?s care impacted by: Hypertension Critical Care Time Critical Care Time Critical Care Time: Yes Total Critical Care Time: 60 Attestation: IV cardizen and titration Discharge Plan Discharge Clinical Impression: Atrial fibrillation with rapid ventricular response Patient Disposition: Admitted As Inpatient Print Language: Ivorian
[2024-09-13] MEDS: Metoprolol Tartrate 5 MG/5 ML VIAL IVPUSH (11:48)
[2024-09-13 11:58] LABS: INTERNATIONAL NORM RATIO 1.6 (0.9-1.1); Prothrombin Time 18.5 SEC (10.9-12.4)
[2024-09-13 12:01] LABS: Partial Thromboplastin Time 40.7 SEC (26.0-36.8)
[2024-09-13 12:10] LABS: Troponin-I High Sensitivity < 2.7 ng/L (<3.5-17.0)
[2024-09-13 12:22] LABS: Influenza A PCR NEGATIVE (Negative); Influenza B PCR NEGATIVE (Negative); Resp Syncy Virus RNA Qual PCR NEGATIVE (Negative); SARS COV2 PCR INHOUSE NEGATIVE (Negative)
[2024-09-13] MEDS: dilTIAZem HCL 50 MG/10 ML VIAL 20 MG IVPUSH (12:57)
[2024-09-13 14:30] LABS: Alanine Aminotransferase 13 U/L (0-31); Albumin Level 3.4 g/dL (3.5-5.0); Alkaline Phosphatase 69 U/L (39-117); Anion Gap 14 (12-20); Aspartate Amino Transferase 12 U/L (5-31); Bilirubin Total 0.3 mg/dL (0.0-1.0); Blood Urea Nitrogen 31 mg/dL (9-16); Calcium 9.6 mg/dL (8.4-10.2); Carbon Dioxide 30 mmol/L (22-29); Chloride 104 mmol/L (96-108); Creatinine Clr Calc Pharmacy 56.3; Estimated Glomerular Filt Rate 46; Glucose Random 125 mg/dL (60-115); Magnesium 1.9 mg/dL (1.6-2.6); Potassium 4.3 mmol/L (3.3-5.1); Sodium 144 mmol/L (135-145); Total Protein 6.5 g/dL (6.5-8.0)
--- NOTE | 2024-09-13 15:21 | P.HPHOSP_ITS ---
History of Present Illness Date of Service: 09/13/24 Attending physician on admission: Dilcia Worley Chief Complaint: Tachycardia Pt is a 64-year-old female with a PMH significant for?paroxysmal AFib on Xarelto, hypothyroidism, HTN, gout, breast cancer, QAMAR not compliant with CPAP, and GERD who presents to the ED from short-term surgery for evaluation of tachycardia and palpitations. Patient initially came to the hospital for preop clearance for impending right breast lumpectomy and sentinel biopsy for invasive ductal carcinoma scheduled for next week. During intake and vitals pt's HR was noted to be in 120s-140s. Pt largely asymptomatic without complaints, though reports slight chest pain and occasional minor palpitations, though she only noticed these after being notified that her heart rate was elevated. States she has been in her normal state of health without recent illness or injury. Has been compliant with medications without recent changes. Has a history of 2 prior hospitalizations for AFib with RVR since being diagnosed 2 years ago. Has chronic nonproductive cough and SOB at baseline. No fever, chills, N/V/D or abd pain. Reports a diagnosis of QAMAR but unable to tolerate CPAP. Reports is currently undergoing pulmonary workup for chronic cough and SOB. In the ED pt was tachycardic up to 156 with mostly soft BP as low as 91/57. Labs were grossly unremarkable and baseline for patient. Chronically elevated leukocytosis of 14.4. Stable H&H. No significant electrolyte abnormalities. Renal and hepatic function WNL. Tested negative for flu, RSV, and COVID. CXR showed no acute cardiopulmonary disease. EKG demonstrated AFib with RVR of 139 with RBBB. Pt was treated with metoprolol 5 mg IV, diltiazem 20 mg IV, and started on a diltiazem drip. Pt will be admitted to the hospital for treatment and further evaluation of AFib with RVR. Review of Systems 2 Review of Systems: Yes all other systems are reviewed and are negative [facility] Medical History Arthritis Depression HX: breast cancer SOB (shortness of breath) On anticoagulant therapy A-fib Hypothyroid Osteoporosis Urethral stenosis Depression with anxiety Thyroid cancer Acid reflux Kidney stone QAMAR (obstructive sleep apnea) Hypertension Knee pain, left Family History Mother Lung cancer Father HTN (hypertension) Melanoma Surgical History Hx of dilation of urethra Hx of cystoscopy H/O colonoscopy History of partial hysterectomy History of thyroidectomy Social History Housing: House Are you a primary managed care analyst to a significant other at home: No Do you presently have visiting nurse or other home services: No Alcohol intake: current Alcohol intake frequency: does not drink Patient Tobacco Use Status: Never used Tobacco e-Cigarette/Vaping Use: Never Used Advance Directives: No Advance Directives Information Provided: No service: No Current occupational status: unemployed Current occupation: right handed Cognitive needs: No Hearing needs: No Vision needs: Yes Meds Allergies Allergy/AdvReac Type Severity Reaction Status Date / Time erythromycin base Allergy Intermediate Abdominal Verified 09/13/24 11:19 Pain lisinopril Allergy Intermediate Rash Verified 09/13/24 11:19 Active Medications: Current Medications Diltiazem HCl 125 mg/ Sodium (Chloride) 125 mls @ 0 mls/hr IVCONT .Q0M ELIZABETH; Protocol Home Medications ?Medication ?Instructions ?Recorded ?Confirmed ?Last Taken ?Type cholecalciferol (vitamin D3) 50 50 mcg PO DAILY 10/03/20 09/13/24 09/12/24 History mcg (2,000 unit) capsule levothyroxine 125 mcg tablet 125 mcg PO MOTUWETHFRSA@0630 08/25/22 09/13/24 09/13/24 History omeprazole 20 mg capsule,delayed 20 mg PO DAILY PRN Acid Reflux 11/17/23 09/13/24 Unknown History release colchicine 0.6 mg tablet 0.6 mg PO DAILY PRN Outbreak 09/13/24 09/13/24 Unknown History furosemide 20 mg tablet 20 mg PO BEDTIME 09/13/24 09/13/24 09/12/24 History levothyroxine 125 mcg tablet 250 mcg PO LESLIE@0630 09/13/24 09/13/24 09/10/24 History olmesartan 40 1 tab PO BEDTIME 09/13/24 09/13/24 09/12/24 History mg-hydrochlorothiazide 25 mg tablet rivaroxaban 20 mg tablet (Xarelto) 20 mg PO DAILY@1700 09/13/24 09/13/24 09/12/24 History Physical Exam 2 Vital Signs and Narrative: Vital Signs: Last Vital Signs Temp 98.2 F 09/13/24 14:31 Pulse 108 H 09/13/24 14:31 Resp 20 09/13/24 14:31 BP 118/44 L 09/13/24 14:31 Pulse Ox 98 09/13/24 14:31 O2 Del Method Room Air 09/13/24 14:31 BMI result Body Mass Index 47.2 Constitutional: Alert, in no acute distress. Mental Status: Oriented to person, place and time. Eyes: Pupils are equal, round, and reactive to light. Ear, Nose, and Throat: Oropharynx clear, mucous membranes moist. Ears and nose without deformities. Trachea midline. Respiratory: Clear to auscultation bilaterally. No wheezing, rales, or rhonchi. Cardiovascular: Irregularly irregular rhythm, tachycardic. Gastrointestinal: Abdomen soft, non-tender, non-distended. Normal bowel sounds. Neurologic: Cranial nerves II-XII are grossly intact bilaterally. No focal neurological deficits. Moves all extremities spontaneously. Skin: Warm, dry. Extremities: No edema. Psychiatric: Normal mood and affect. Results Labs 09/13/24 11:33 09/13/24 14:04 Labs: Laboratory Results - last 24 hr 09/13/24 09/13/24 09/13/24 11:33 11:41 14:04 MCV 85.4 MCH 26.9 L MCHC 31.5 RDW 15.5 Plt Count 357 MPV 9.5 Immature Gran % (Auto) 0.8 H Neut % (Auto) 70.4 Lymph % (Auto) 20.6 Oliver % (Auto) 5.8 Eos % (Auto) 1.9 Baso % (Auto) 0.5 Lymph # (Auto) 2.9 Oliver # (Auto) 0.8 Eos # (Auto) 0.3 Baso # (Auto) 0.1 Abs Immat Gran (auto) 0.11 H Absolute Neuts (auto) 10.0 H Absolute Nucleated RBC 0.020 H Nucleated RBC % (auto) 0.1 PT 18.5 H INR 1.6 H APTT 40.7 H Anion Gap 14 Estim Creat Clear Calc 56.3 Estimated GFR 46 Random Glucose 125 H Calcium 9.6 Magnesium 1.9 Total Bilirubin 0.3 AST 12 ALT 13 Alkaline Phosphatase 69 Troponin I High Sens < 2.7 Total Protein 6.5 Albumin 3.4 L Influenza Type A (PCR) NEGATIVE Influenza Type B (PCR) NEGATIVE RSV RNA Qual (PCR) NEGATIVE SARS-CoV-2 RNA (RT-PCR) NEGATIVE Imaging Radiologist's Impressions: Impressions Chest X-Ray 09/13/24 13:25 IMPRESSION: No acute disease or significant interval change. Electronically signed by: Henri Stevens MD 09/13/2024 01:45 PM EDT RP Assessment and Plan (1) Atrial fibrillation with rapid ventricular response: Status: Acute Plan Pt is a 64-year-old female with a PMH significant for?paroxysmal AFib on Xarelto, hypothyroidism, HTN, gout, breast cancer, QAMAR not compliant with CPAP, and GERD who presents to the ED from short-term surgery for evaluation of tachycardia and palpitations. Pt will be admitted to the hospital for treatment and further evaluation of AFib with RVR. AFib with RVR HR as high as 156 in ED, noted to be in 130s-140s during interview and exam Pt largely asymptomatic Pt given metoprolol 5 mg IV and diltiazem 20 mg IV in the ED Will place on diltiazem drip Cardiology consult Will hold on echocardiogram pending cardiology input Monitor on telemetry HTN Hold olmesartan-hydrochlorothiazide, furosemide due to soft BP Resume as indicated Hypothyroidism Continue levothyroxine Gout Continue colchicine prn GERD PPI Full Code Attending:?Dr. Worley DVT Prophylaxis: On Xarelto Pt will require a hospitalization of at least two nights for treatment of?AFib with RVR requiring IV diltiazem drip. Quality Stroke Does the patient have a stroke diagnosis?: No VTE Prior VTE?: No VTE Risk Level:: Medical - moderate - high VTE Device Contraindication: Treatment Not Indicated VTE Drug Contraindication: N/A - Med Ordered
--- NOTE | 2024-09-13 16:17 | PHA.MEDREC ---
Addendum entered by Laura Perez [facility] 09/13/24 16:33: Reviewed, noticed most of claims for levothyroxine are for synthroid brand, last fill was for levothryoxine and r d internship confirmed with patient they are on levothyroxine. Original Note: Pharmacy Consult ? Medication Reconciliation Pharmacy has completed the medication reconciliation. Confirmed medications with patient. Patient confirmed she still has Colchicine 0.6mg tabs at home as needed for Gout Outbreak. She also has Omeprazole 20mg caps at home as needed for acid reflux. She confirmed she takes Levothyroxine 125mg tabs and states she takes 2 tabs on Sundays and took 2 this past Wednesday. She also stated she takes Furosemide 20mg tabs and shes been taking it at bedtime but stated the Dr here today said they wanted her to start taking it in the morning and the patient is going to start doing that. She stated she took her Levothyroxine this morning and everything else yesterday.
[2024-09-13] MEDS: dilTIAZem HCL 125 MG in 0.9 % Sodium Chloride 100 ML 10 MG IVCONT (16:31)
[2024-09-13] MEDS: Omeprazole 20 MG CAPSULE.DR PO (17:21)
[2024-09-13] MEDS: Rivaroxaban 20 MG TABLET PO (17:21)
--- NOTE | 2024-09-13 19:49 | PC.NURSE ---
this rn assumed care of pt, pt a&ox4, respirations even and unlabored. pt noted to be on dilt drip 15ml/hr, pt heart rate noted to be less than 120, afib 90-100, per d/c drip at this time, start again as heart rate increases. pt ambulatory to bathroom with steady gait. vss.
[2024-09-13] MEDS: Metoprolol Succinate ER 25 MG TAB.ER.24H 75 MG PO (20:45)
--- NOTE | 2024-09-13 20:49 | PC.NURSE ---
pt medicated per mar, tolerated well with water. vss.
--- NOTE | 2024-09-13 22:48 | PC.NURSE ---
pt heart rate noted to be in rapid afib 120-130 bpm and then immediately down to 100. per start drip at starting dose and titrate for heart rate below 80.
[2024-09-14] VITALS (10 sets, daily range): BP systolic 126–135; BP diastolic 41–76; PULSE 74–99; RESP 16–118; TEMP 36.2–36.6; O2SAT 94–96; BMI 47.3
--- NOTE | 2024-09-14 03:43 | PC.NURSE ---
pt noted to be afib 70-78bpm, aware, dilt drip paused at this time.
--- NOTE | 2024-09-14 06:24 | PC.NURSE ---
pharmacy contacted to bring up levothyroxine to the ed.
[2024-09-14] MEDS: Omeprazole 20 MG CAPSULE.DR PO (06:28)
[2024-09-14] MEDS: Levothyroxine Sodium 125 MCG TABLET PO (06:29)
[2024-09-14] MEDS: 0.9 % Sodium Chloride Flush 3 ML SYRINGE IVFLUSH ×3 (08:28→20:18)
[2024-09-14 09:05] LABS: TSH reflex Free T4 0.06 uIU/mL (0.32-4.0)
--- NOTE | 2024-09-14 09:16 | MHC.CM.PN ---
CM met with Patient at bedside. Patient lives in a house with her /HCP, who will transport to home at to time of dc. Patient uses a walker and required no services SHOULDER PUNCHER. Home self care is the goal and CM has initiated and will follow for dc planning. PCP is Dr.Joanna Ruiz.
--- NOTE | 2024-09-14 09:33 | PM.CNCAR ---
History of Present Illness History of Present Illness Date of Service: 09/14/24 Chief complaint: Afib/RVR Narrative: This is a cardiology consultation regarding atrial fibrillation. Generally seen by . History of paroxysmal atrial fibrillation and in the past, she had converted to sinus rhythm by herself. She is maintained on beta-blockers and anticoagulation. Also has hypertension. Obesity. Obstructive sleep apnea but not using CPAP. It seems that she got diagnosed with breast cancer and plan for surgery next week. In this context, she came for some preoperative evaluation and found to have tachycardia/atrial fibrillation rapid rate and hence sent to the ER and then admitted. She states that she did not really know that she was in atrial fibrillation. Hence duration is unclear. Otherwise for the most part she is doing fine. She states she is chronically short of breath and just about the same as before. Possibly some palpitations but she feels she did not know she was in atrial fibrillation. Otherwise, feels okay. Review of Systems Review of Systems: Yes all other systems are reviewed and are negative Constitutional: Constitutional: Reports as per HPI and Reports no additional constitutional complaints Eyes: Eyes: Reports as per HPI and Denies no additional eye complaints ENT: Denies system reviewed and no additional complaints, except as documented and Reports as per HPI Cardiovascular: Cardiovascular: Reports as per HPI, Reports no additional cardiovascular complaints, Denies acrocyanosis, Denies cool extremities, Denies chest pain, Denies leg edema, Denies lightheadedness, Reports palpitations and Reports dyspnea Respiratory: Respiratory: Reports as per HPI, Denies no additional respiratory complaints and Reports dyspnea Gastrointestinal: Gastrointestinal: Reports as per HPI and Denies no additional gastrointestinal complaints Genitourinary: Genitourinary: Reports as per HPI Musculoskeletal: Musculoskeletal: Reports no additional musculoskeletal complaints and Reports as per HPI Integumentary/Breasts: Skin/Breast: Reports system reviewed and no additional complaints, except as docu Neurologic: Reports system reviewed and no additional complaints, except as documented and Reports as per HPI Psychiatric: Psychiatric: Reports no additional psychiatric complaints and Reports as per HPI Endocrine: Endocrine: Reports no additional endocrine complaints, Reports as per HPI and Reports palpitations Hematologic/Lymphatic: Hematologic/Lymphatic: Reports no additional hematologic/lymphatic complaints and Reports as per HPI Allergic/Immunologic: Allergic/Immunologic: Reports no additional allergic/immunologic complaints and Reports as per HPI [facility] Past Medical History Medical History Arthritis Depression HX: breast cancer SOB (shortness of breath) On anticoagulant therapy A-fib Hypothyroid Osteoporosis Urethral stenosis Depression with anxiety Thyroid cancer Acid reflux Kidney stone QAMAR (obstructive sleep apnea) Hypertension Knee pain, left Family History Family History Mother Lung cancer Father HTN (hypertension) Melanoma Surgical History Surgical History Hx of dilation of urethra Hx of cystoscopy H/O colonoscopy History of partial hysterectomy History of thyroidectomy Social History Social History Household Members: Spouse Housing: House Are you a primary lawn caretaker to a significant other at home: No Do you presently have visiting nurse or other home services: No Alcohol intake: current Alcohol intake frequency: does not drink Patient Tobacco Use Status: Never used Tobacco e-Cigarette/Vaping Use: Never Used service: No Current occupational status: unemployed Current occupation: right handed Cognitive needs: No Hearing needs: No Vision needs: Yes Meds Allergies Allergy/AdvReac Type Severity Reaction Status Date / Time erythromycin base Allergy Intermediate Abdominal Verified 09/13/24 11:19 Pain lisinopril Allergy Intermediate Rash Verified 09/13/24 11:19 Active Medications: Current Medications Acetaminophen (Acetaminophen 325 Mg Tablet) 650 mg PO Q6H PRN PRN Reason: Pain, Mild (Pain Scale 1-3), fever or headache Benzonatate (Benzonatate 100 Mg Capsule) 100 mg PO TID PRN PRN Reason: Cough Calcium Carbonate (Calcium Carbonate 750 Mg Tab.Chew) 750 mg PO Q4H PRN PRN Reason: Heartburn Colchicine (Colchicine 0.6 Mg Tablet) 0.6 mg PO DAILY PRN PRN Reason: Outbreak Diltiazem HCl 125 mg/ Sodium (Chloride) 125 mls @ 0 mls/hr IVCONT .Q0M ELIZABETH; Protocol Last Titration: 09/14/24 03:42 Dose: 0 mg/hr, 0 mls/hr Influenza Virus Vaccine (Flu Vacc [id number](6mos Up)/Pf 0.5 Ml Syringe) 0.5 ml IM .ONCE ONE Stop: 09/14/24 17:01 Levothyroxine Sodium (Levothyroxine Sodium 125 Mcg Tablet) 250 mcg PO LESLIE@0630 [facility] Levothyroxine Sodium (Levothyroxine Sodium 125 Mcg Tablet) 125 mcg PO MOTUWETHFRSA@0630 [facility] Last Admin: 09/14/24 06:29 Dose: 125 mcg Magnesium Hydroxide (Milk Of Magnesia 30 Ml Oral.Susp) 30 ml PO DAILY PRN PRN Reason: Constipation Melatonin (Melatonin 3 Mg Tablet) 6 mg PO BEDTIME PRN PRN Reason: Insomnia Metoprolol Succinate (Metoprolol Succinate Er 25 Mg Tab.Er.24h) 75 mg PO BID [facility]; Protocol Last Admin: 09/13/24 20:45 Dose: 75 mg Omeprazole (Omeprazole 20 Mg Capsule.Dr) 20 mg PO DAILY@0630 [facility] Last Admin: 09/14/24 06:28 Dose: 20 mg Ondansetron HCl (Ondansetron Hcl 4 Mg/2 Ml Vial) 4 mg IVPUSH Q8H PRN PRN Reason: Nausea and Vomiting Rivaroxaban (Rivaroxaban 20 Mg Tablet) 20 mg PO DAILY@1700 [facility] Last Admin: 09/13/24 17:21 Dose: 20 mg Sodium Chloride (0.9 % Sodium Chloride Flush 3 Ml Syringe) [facility] Last Admin: 09/14/24 08:28 Dose: 3 ml Vitamin D (Cholecalciferol (Vitamin D3) 25 Mcg Tablet) 50 mcg PO DAILY [facility] Home Medications ?Medication ?Instructions ?Recorded ?Confirmed ?Last Taken ?Type cholecalciferol (vitamin D3) 50 50 mcg PO DAILY 10/03/20 09/13/24 09/12/24 History mcg (2,000 unit) capsule levothyroxine 125 mcg tablet 125 mcg PO MOTUWETHFRSA@0630 08/25/22 09/13/24 09/13/24 History omeprazole 20 mg capsule,delayed 20 mg PO DAILY PRN Acid Reflux 11/17/23 09/13/24 Unknown History release colchicine 0.6 mg tablet 0.6 mg PO DAILY PRN Outbreak 09/13/24 09/13/24 Unknown History furosemide 20 mg tablet 20 mg PO BEDTIME 09/13/24 09/13/24 09/12/24 History levothyroxine 125 mcg tablet 250 mcg PO LESLIE@0630 09/13/24 09/13/24 09/10/24 History olmesartan 40 1 tab PO BEDTIME 09/13/24 09/13/24 09/12/24 History mg-hydrochlorothiazide 25 mg tablet rivaroxaban 20 mg tablet (Xarelto) 20 mg PO DAILY@1700 09/13/24 09/13/24 09/12/24 History Physical Exam Vital Signs: Vital Signs: Last Vital Signs Temp 97.6 F 09/14/24 09:21 Pulse 99 09/14/24 09:21 Resp 20 09/14/24 09:21 BP 135/76 09/14/24 09:21 Pulse Ox 96 09/14/24 09:21 O2 Del Method Room Air 09/14/24 09:21 BMI result Body Mass Index 47.3 Const: General: comfortable and no acute distress Orientation/consciousness: patient oriented x3 HEENT: Other: Unremarkable Head: Yes normal to inspection Neck: Neck: Yes normal visual inspection Chest: Chest palpation & inspection: normal inspection of the chest Resp: Auscultation: clear to auscultation bilaterally Cardio: Palpation: normal PMI Heart sounds: S1 normal heart sound present, S2 normal heart sound present, no gallops, no murmurs and no rubs GI: Palpation (GI): Soft to palpation Back/Spine/Pelvis: Other: unremarkable Skin: General skin exam: no rashes or lesions noted Neuro: General: patient oriented x3 Extrem: General: Yes normal to inspection Psych: Mental Status: mental status grossly normal Objective Labs and Meds 09/13/24 11:33 09/13/24 14:04 Lab results: Laboratory Results - last 24 hr 09/13/24 09/13/24 09/13/24 11:33 11:41 14:04 WBC 14.2 H RBC 4.46 Hgb 12.0 Hct 38.1 MCV 85.4 MCH 26.9 L MCHC 31.5 RDW 15.5 Plt Count 357 MPV 9.5 Immature Gran % (Auto) 0.8 H Neut % (Auto) 70.4 Lymph % (Auto) 20.6 [place] % (Auto) 5.8 Eos % (Auto) 1.9 Baso % (Auto) 0.5 Lymph # (Auto) 2.9 [place] # (Auto) 0.8 Eos # (Auto) 0.3 Baso # (Auto) 0.1 Abs Immat Gran (auto) 0.11 H Absolute Neuts (auto) 10.0 H Absolute Nucleated RBC 0.020 H Nucleated RBC % (auto) 0.1 PT 18.5 H INR 1.6 H APTT 40.7 H Sodium 144 Potassium 4.3 Chloride 104 Carbon Dioxide 30 H Anion Gap 14 BUN 31 H Creatinine 1.18 Estim Creat Clear Calc 56.3 Estimated GFR 46 Random Glucose 125 H Calcium 9.6 Magnesium 1.9 Total Bilirubin 0.3 AST 12 ALT 13 Alkaline Phosphatase 69 Troponin I High Sens < 2.7 Total Protein 6.5 Albumin 3.4 L TSH 0.06 L Influenza Type A (PCR) NEGATIVE Influenza Type B (PCR) NEGATIVE RSV RNA Qual (PCR) NEGATIVE SARS-CoV-2 RNA (RT-PCR) NEGATIVE ECG Interpretation: Atrial fibrillation versus flutter with rapid rate at 139/Min. Right bundle-branch block pattern. In the repeat EKG, rate is 81/Min. Currently, around 100/Min. Imaging Radiologist's impression: Impressions Chest X-Ray 09/13/24 13:25 IMPRESSION: No acute disease or significant interval change. Electronically signed by: Henri Stevens MD 09/13/2024 01:45 PM EDT RP Assessment and Plan (1) Atrial fibrillation with rapid ventricular response: Status: Acute (2) Invasive ductal carcinoma of right breast in female: Status: Acute Plan Unremarkable high sensitivity troponin. In the echocardiogram from November of this year, hyperdynamic LVEF. No wall motion abnormalities. Overall, atrial fibrillation with rapid rate of unknown duration. Home med listed to be metoprolol succinate 75 mg PID. We can hold the olmesartan/HCTZ and go up on the metoprolol to 100 mg b.i.d.. Add digoxin-loading +maintenance. Continue anticoagulation. Due to upcoming surgery for next week, would avoid cardioversion as this will need uninterrupted anticoagulation. Procedures Date of Service Date of Service: 09/14/24
[2024-09-14 09:40] LABS: Free T4 (Free Thyroxine) 1.55 ng/dL (0.71-1.85)
[2024-09-14] MEDS: Metoprolol Succinate ER 25 MG TAB.ER.24H 75 MG PO (09:44)
[2024-09-14] MEDS: Cholecalciferol (Vitamin D3) 25 MCG TABLET 50 MCG PO (09:44)
[2024-09-14] MEDS: Digoxin 0.5 MG/2 ML AMPUL 0.25 MG IVPUSH ×2 (12:16→17:08)
--- NOTE | 2024-09-14 16:28 | P.PNIM_ITS ---
Subjective Subjective Date of Service: 09/14/24 Interval History: seen and evaluated heart rate better controlled converted to sinus no other evemts Review of Systems Review of Systems: Yes all other systems are reviewed and are negative Physical Exam 2 Vital Signs: Vital Signs: Last Vital Signs Temp 97.2 F 09/14/24 16:00 Pulse 84 09/14/24 16:00 Resp 18 09/14/24 16:00 BP 131/63 09/14/24 16:00 Pulse Ox 96 09/14/24 16:00 O2 Del Method Room Air 09/14/24 16:00 BMI result Body Mass Index 47.3 Const: Other: Constitutional : Awake, interactive, not in distress Neck : Normal inspection, Supple Cardiovascular : RRR, no JVP, no lower extremity edema Respiratory : good bilateral air entry, no crackles, wheezes or rhonchi Gastrointestinal: soft, lax, Normal bowel sounds, Non tender Skin : Warm, Dry Neurological : Alert & oriented x3, No focal deficit Objective Data Active Medications Acetaminophen (Acetaminophen 325 Mg Tablet) 650 mg PO Q6H PRN PRN Reason: Pain, Mild (Pain Scale 1-3), fever or headache Benzonatate (Benzonatate 100 Mg Capsule) 100 mg PO TID PRN PRN Reason: Cough Calcium Carbonate (Calcium Carbonate 750 Mg Tab.Chew) 750 mg PO Q4H PRN PRN Reason: Heartburn Colchicine (Colchicine 0.6 Mg Tablet) 0.6 mg PO DAILY PRN PRN Reason: Outbreak Digoxin (Digoxin 0.5 Mg/2 Ml Ampul) 0.25 mg IVPUSH Q6H [facility]; Protocol Stop: 09/14/24 23:01 Last Admin: 09/14/24 12:16 Dose: 0.25 mg Documented By: ALIE Influenza Virus Vaccine (Flu Vacc [id number](6mos Up)/Pf 0.5 Ml Syringe) 0.5 ml IM .ONCE ONE Stop: 09/14/24 17:01 Levothyroxine Sodium (Levothyroxine Sodium 125 Mcg Tablet) 250 mcg PO LESLIE@0630 [facility] Levothyroxine Sodium (Levothyroxine Sodium 125 Mcg Tablet) 125 mcg PO MOTUWETHFRSA@0630 [facility] Last Admin: 09/14/24 06:29 Dose: 125 mcg Documented By: CLAUDY Magnesium Hydroxide (Milk Of Magnesia 30 Ml Oral.Susp) 30 ml PO DAILY PRN PRN Reason: Constipation Melatonin (Melatonin 3 Mg Tablet) 6 mg PO BEDTIME PRN PRN Reason: Insomnia Metoprolol Succinate (Metoprolol Succinate Er 100 Mg Tab.Er.24h) 100 mg PO BID [facility]; Protocol Omeprazole (Omeprazole 20 Mg Capsule.Dr) 20 mg PO DAILY@0630 [facility] Last Admin: 09/14/24 06:28 Dose: 20 mg Documented By: CLAUDY Ondansetron HCl (Ondansetron Hcl 4 Mg/2 Ml Vial) 4 mg IVPUSH Q8H PRN PRN Reason: Nausea and Vomiting Rivaroxaban (Rivaroxaban 20 Mg Tablet) 20 mg PO DAILY@1700 [facility] Last Admin: 09/13/24 17:21 Dose: 20 mg Documented By: ANGEL Sodium Chloride (0.9 % Sodium Chloride Flush 3 Ml Syringe) 3 ml IVFLUSH QSHIFT [facility] Last Admin: 09/14/24 08:28 Dose: 3 ml Documented By: CHAYITO Vitamin D (Cholecalciferol (Vitamin D3) 25 Mcg Tablet) 50 mcg PO DAILY [facility] Last Admin: 09/14/24 09:44 Dose: 50 mcg Documented By: ALIE Labs 09/13/24 11:33 09/13/24 14:04 Labs: Laboratory Results - last 24 hr 09/13/24 14:04 TSH 0.06 L Free T4 1.55 Assessment and Plan (1) Atrial fibrillation with rapid ventricular response: Status: Acute Plan Pt is a 64-year-old female with a PMH significant for?paroxysmal AFib on Xarelto, hypothyroidism, HTN, gout, breast cancer, QAMAR not compliant with CPAP, and GERD who presents to the ED from short-term surgery for evaluation of tachycardia and palpitations. Pt will be admitted to the hospital for treatment and further evaluation of AFib with RVR. paroxysmal AFib with RVR Converted to sinus now Continue Digoxin load , check levels dc diltiazem drip Increase MEtoprolol to 100mg XL bid Cardiology following Monitor on telemetry HTN Hold olmesartan-hydrochlorothiazide, restart furosemide due to soft BP Hypothyroidism Continue levothyroxine Gout Continue colchicine prn GERD PPI Full Code DVT Prophylaxis: On Xarelto Pt will require a hospitalization overnight for treatment of?AFib with RVR on IV Digoxin load and Telemetry monitoring Quality Stroke Does the patient have a stroke diagnosis?: No VTE Prior VTE?: No VTE Risk Level:: Medical - moderate - high VTE Device Contraindication: Treatment Not Indicated VTE Drug Contraindication: N/A - Med Ordered
[2024-09-14] MEDS: Flu Vacc TS2024-25(6mos up)/PF 0.5 ML SYRINGE IM (17:08)
[2024-09-14] MEDS: Rivaroxaban 20 MG TABLET PO (17:08)
[2024-09-14] MEDS: Furosemide 20 MG TABLET PO (17:08)
[2024-09-14] MEDS: Metoprolol Succinate ER 100 MG TAB.ER.24H PO (20:17)
[2024-09-15] VITALS: BP 118/59; PULSE 84; RESP 20; TEMP 36.7; O2SAT 94
[2024-09-15] MEDS: Digoxin 0.5 MG/2 ML AMPUL 0.25 MG IVPUSH (00:04)
[2024-09-15 03:32] VITALS: BP 103/57; PULSE 82; RESP 20; TEMP 36.1; O2SAT 98
[2024-09-15] MEDS: Levothyroxine Sodium 125 MCG TABLET PO (06:06)
[2024-09-15] MEDS: Omeprazole 20 MG CAPSULE.DR PO (06:06)
[2024-09-15 06:28] LABS: Hematocrit 32.5 % (37.0-47.0); Hemoglobin 9.9 g/dl (12.0-16.0); Mean Corpuscular HGB Conc 30.5 g/dl (31.0-35.0); Mean Corpuscular Hemoglobin 26.1 pg (27.0-33.0); Mean Corpuscular Volume 85.5 fL (80.0-98.0); Mean Platelet Volume 9.5 fL (9.4-12.3); Platelet Count 293 X10*3/uL (160-400); Red Cell Distribution Width 15.4 % (11.0-16.0); White Blood Count 12.4 X10*3/uL (4.8-10.8)
[2024-09-15 06:43] LABS: Anion Gap 14 (12-20); Blood Urea Nitrogen 27 mg/dL (9-16); Calcium 8.9 mg/dL (8.4-10.2); Carbon Dioxide 28 mmol/L (22-29); Chloride 103 mmol/L (96-108); Creatinine Clr Calc Pharmacy 67.7; Digoxin 1.1 ng/mL (0.8-2.0); Estimated Glomerular Filt Rate 57; Glucose Random 114 mg/dL (60-115); Potassium 3.6 mmol/L (3.3-5.1); Sodium 141 mmol/L (135-145)
[2024-09-15 08:00] VITALS: BP 148/74; PULSE 77; RESP 20; TEMP 36.7; O2SAT 95
[2024-09-15] MEDS: Cholecalciferol (Vitamin D3) 25 MCG TABLET 50 MCG PO (09:00)
[2024-09-15] MEDS: Digoxin 0.25 MG TABLET PO (09:00)
[2024-09-15] MEDS: Metoprolol Succinate ER 100 MG TAB.ER.24H PO (09:00)
[2024-09-15] MEDS: Furosemide 20 MG TABLET PO (09:01)
[2024-09-15] MEDS: 0.9 % Sodium Chloride Flush 3 ML SYRINGE IVFLUSH (09:01)
--- NOTE | 2024-09-15 09:14 | P.CDIM_ITS ---
PROVIDER RESPONSE TEXT: To clarify, the appropriate diagnosis supported by the clinical indicators: Morbid obesity QUERY TEXT: PHYSICIAN'S DOCUMENTATION REQUEST Date of Query: 09/15/2024 08:28 AM EDT Patient Name: Yaquelin Rasheed Admit Date: 09/13/2024 Dear Dilcia Worley MD, A review of the medical record indicates additional documentation may be needed. Please review below and update the documentation accordingly. Clinical Indicators: BMI: 47.3 Ht: 4ft 1in Wt: 113.5kg If possible, please provide an associated diagnosis related to the abnormal BMI, such as: Morbid obesity Obesity Other (explain) Clinically unable to determine (explain) Thank you, Margarita Barraza, CCS, CDIS Use of terms such as suspected, likely, concern for, or probable (associated with a specific diagnosi s that is being evaluated, monitored, or treated as if it exists) are acceptable and can be coded in the inpatient se tting, when documented at the time of discharge. Please use your independent medical judgment in providing your response. THIS QUERY IS PART OF THE PERMANENT MEDICAL RECORD
--- NOTE | 2024-09-15 11:23 | PM.PNCARD ---
Subjective Subjective Date of Service: 09/15/24 Interval history: Patient states that she feels fine. Last night, she converted back to sinus rhythm. Review of Systems Review of Systems Yes all other systems are reviewed and are negative Constitutional: Reports as per HPI and Reports no additional constitutional complaints Eyes: Reports as per HPI and Denies no additional eye complaints Denies system reviewed and no additional complaints, except as documented and Reports as per HPI Cardiovascular: Reports as per HPI, Reports no additional cardiovascular complaints, Denies acrocyanosis, Denies cool extremities, Denies chest pain, Denies leg edema, Denies lightheadedness, Denies palpitations and Denies dyspnea Respiratory: Reports as per HPI, Denies no additional respiratory complaints and Denies dyspnea Gastrointestinal: Reports as per HPI and Denies no additional gastrointestinal complaints Genitourinary: Reports as per HPI Musculoskeletal: Reports no additional musculoskeletal complaints and Reports as per HPI Skin/Breast: Reports system reviewed and no additional complaints, except as docu Reports system reviewed and no additional complaints, except as documented and Reports as per HPI Psychiatric: Reports no additional psychiatric complaints and Reports as per HPI Endocrine: Reports no additional endocrine complaints, Reports as per HPI and Denies palpitations Hematologic/Lymphatic: Reports no additional hematologic/lymphatic complaints and Reports as per HPI Allergic/Immunologic: Reports no additional allergic/immunologic complaints and Reports as per HPI Physical Exam Vital Signs: Last Vital Signs Temp 98.0 F 09/15/24 08:00 Pulse 77 09/15/24 08:00 Resp 20 09/15/24 08:00 BP 148/74 H 09/15/24 08:00 Pulse Ox 95 09/15/24 08:00 O2 Del Method Room Air 09/15/24 08:00 BMI result Body Mass Index 47.3 Objective Labs and Meds 09/15/24 06:05 09/15/24 06:05 Lab results: Laboratory Results - last 24 hr 09/15/24 06:05 WBC 12.4 H RBC 3.80 L Hgb 9.9 L Hct 32.5 L MCV 85.5 MCH 26.1 L MCHC 30.5 L RDW 15.4 Plt Count 293 MPV 9.5 Absolute Nucleated RBC 0.000 Nucleated RBC % (auto) 0.0 Sodium 141 Potassium 3.6 Chloride 103 Carbon Dioxide 28 Anion Gap 14 BUN 27 H Creatinine 0.98 Estim Creat Clear Calc 67.7 Estimated GFR 57 Random Glucose 114 Calcium 8.9 D Digoxin 1.1 Progress Note: A&P Assessment and plan (1) Atrial fibrillation with rapid ventricular response: Status: Acute (2) Invasive ductal carcinoma of right breast in female: Status: Acute Plan Unremarkable high sensitivity troponin. In the echocardiogram from November of this year, hyperdynamic LVEF. No wall motion abnormalities. Myocardial perfusion imaging [id number] normal perfusion. Overall, she is back to normal sinus rhythm. For medications, we can keep her on metoprolol 100 mg b.i.d.. Add Multaq 400mg bid. Stop digoxin. Continue anticoagulation. Discharge planning. Follow-up in clinic. Time Spent With Patient Time: Total time managing care of this patient today ____ minutes. Progress Note: Quality Stroke Does the patient have a stroke diagnosis?: No Procedures Date of Service Date of Service: 09/15/24
--- NOTE | 2024-09-15 12:25 | P.DS_ITS ---
DS: Providers Provider Date of Service: 09/15/24 Date of admission: 09/13/24 16:04 Date of discharge: 09/15/24 Primary care physician: Amita Ruiz MD Consults: 09/13/24 14:51 Consult to Cardiology Stat Consulting Provider: [facility] Reason for consultation: rapid A.Fib Has provider been notified: Yes DS: Diagnosis Discharge Diagnosis (1) Atrial fibrillation with rapid ventricular response: Status: Acute (2) Invasive ductal carcinoma of right breast in female: Status: Acute DS: Summary Hospital Course Hospital Course: Admission note HPI Pt is a 64-year-old female with a PMH significant for?paroxysmal AFib on Xarelto, hypothyroidism, HTN, gout, breast cancer, QAMAR not compliant with CPAP, and GERD who presents to the ED from short-term surgery for evaluation of tachycardia and palpitations. Patient initially came to the hospital for preop clearance for impending right breast lumpectomy and sentinel biopsy for invasive ductal carcinoma scheduled for next week. During intake and vitals pt's HR was noted to be in 120s-140s. Pt largely asymptomatic without complaints, though reports slight chest pain and occasional minor palpitations, though she only noticed these after being notified that her heart rate was elevated. States she has been in her normal state of health without recent illness or injury. Has been compliant with medications without recent changes. Has a history of 2 prior hospitalizations for AFib with RVR since being diagnosed 2 years ago. Has chronic nonproductive cough and SOB at baseline. No fever, chills, N/V/D or abd pain. Reports a diagnosis of QAMAR but unable to tolerate CPAP. Reports is currently undergoing pulmonary workup for chronic cough and SOB. In the ED pt was tachycardic up to 156 with mostly soft BP as low as 91/57. Labs were grossly unremarkable and baseline for patient. Chronically elevated leukocytosis of 14.4. Stable H&H. No significant electrolyte abnormalities. Renal and hepatic function WNL. Tested negative for flu, RSV, and COVID. CXR showed no acute cardiopulmonary disease. EKG demonstrated AFib with RVR of 139 with RBBB. Pt was treated with metoprolol 5 mg IV, diltiazem 20 mg IV, and started on a diltiazem drip. Pt will be admitted to the hospital for treatment and further evaluation of AFib with RVR. Hospital course The patient was admitted for treatment of paroxysmal AFib with RVR that was started on Cardizem drip with fair response. Increase Metoprolol dose and started on Digoxin load with conversion back to sinus rhythm. She was evaluated by Cardiology who recommended to Start Multaq to keep her in sinus rhythm. To follow cardiology as outpatient. Jose L for anticoagulation. Discharge plan Increase Metoprolol XL to 100 mg twice daily Start Multaq 400 mg twice daily to keep your heart in regular rhythm Follow up with cardiology as outpatient Time Attestation Discharge Coordination Time (in mins): 38 Quality: Safe Use of Opioids Does Pt have an Active Cancer Diagnosis on the Problem List?: No Quality: Stroke Does the patient have a stroke diagnosis?: No Physical Exam Vital Signs: Vital Signs: Last Vital Signs Temp 98.0 F 09/15/24 08:00 Pulse 77 09/15/24 08:00 Resp 20 09/15/24 08:00 BP 148/74 H 09/15/24 08:00 Pulse Ox 95 09/15/24 08:00 O2 Del Method Room Air 09/15/24 08:00 BMI result Body Mass Index 47.3 Const: Other: Constitutional : Awake, interactive, not in distress Neck : Normal inspection, Supple Cardiovascular : RRR, no JVP, no lower extremity edema Respiratory : good bilateral air entry, no crackles, wheezes or rhonchi Gastrointestinal: soft, lax, Normal bowel sounds, Non tender Skin : Warm, Dry Neurological : Alert & oriented x3, No focal deficit DS: Data Data Completed and Pending Labs on day of discharge: Laboratory Results - last 24 hr 09/15/24 06:05 WBC 12.4 H RBC 3.80 L Hgb 9.9 L Hct 32.5 L MCV 85.5 MCH 26.1 L MCHC 30.5 L RDW 15.4 Plt Count 293 MPV 9.5 Absolute Nucleated RBC 0.000 Nucleated RBC % (auto) 0.0 Sodium 141 Potassium 3.6 Chloride 103 Carbon Dioxide 28 Anion Gap 14 BUN 27 H Creatinine 0.98 Estim Creat Clear Calc 67.7 Estimated GFR 57 Random Glucose 114 Calcium 8.9 D Digoxin 1.1 Imaging Chest x-ray: Radiologist's impression: ITS Impressions Chest X-Ray 09/13/24 13:25 IMPRESSION: No acute disease or significant interval change. Electronically signed by: Henri Stevens MD 09/13/2024 01:45 PM EDT RP Discharge Plan Discharge Anticipated Discharge Date/Time: 09/15/24 12:20 Patient Disposition: Home, Self-Care Discharge Diagnosis: Atrial fibrillation with RvR Referrals: Amita Ruiz MD [Primary Care Provider] - 1 Week Discharge Medications: New metoprolol succinate 100 mg tablet extended release 24 hr 100 mg PO BID Qty: 180 0RF Multaq 400 mg tablet 400 mg PO BID Qty: 180 0RF Rx Instructions: must administer with a meal/food Continued levothyroxine 125 mcg tablet 125 mcg PO MOTUWETHFRSA@0630 furosemide 20 mg tablet 20 mg PO BEDTIME olmesartan-hydrochlorothiazide 40-25 mg tablet 1 tab PO BEDTIME Xarelto 20 mg tablet 20 mg PO DAILY@1700 Rx Instructions: must administer with evening meal colchicine 0.6 mg tablet 0.6 mg PO DAILY PRN (Reason: Outbreak) levothyroxine 125 mcg Tablet 250 mcg PO LESLIE@0630 cholecalciferol (vitamin D3) 50 mcg (2,000 unit) capsule 50 mcg PO DAILY omeprazole 20 mg capsule,delayed release(DR/EC) 20 mg PO DAILY PRN (Reason: Acid Reflux) Discontinued metoprolol succinate 50 mg tablet extended release 24 hr 75 mg PO BID Qty: 270 1RF Discharge Orders: Discharge Order (Routine); Ordered 09/15/24 Ordered By: Dilcia Worley Diet: Advance to usual diet Activity on Discharge: As tolerated Stand Alone Forms: Patient Portal Discharge page Print Language: Senegalese Care Plan Goals: Increase Metoprolol XL to 100 mg twice daily Start Multaq 400 mg twice daily to keep your heart in regular rhythm Follow up with cardiology as outpatient Health Concerns: Atrial fibrillation with rapid response Plan of Treatment: Multaq Metoprolol Assessment: as above
--- NOTE | 2024-09-15 12:37 | MHC.CM.PN ---
Pt is medically cleared for discharge home self-care, pts will transport her home.
== END 2024-09-15 13:00 | disposition home or self-care (01) | DRG 309 ==
LOC: HO.ED 14:56 → HO.EDOVER 16:17 → HO.IMC 09-14 07:56
PROVIDERS: Physician Assistant Medical; Admitting Provider Student in an Organized Health Care Education/Training Program; Emergency Provider Emergency Medicine; PCP Internal Medicine; Visit Provider Student in an Organized Health Care Education/Training Program
DX: I48.0 Paroxysmal atrial fibrillation (principal); Z68.42 Body mass index [BMI] 45.0-49.9, adult; E66.01 Morbid (severe) obesity due to excess calories; G47.33 Obstructive sleep apnea (adult) (pediatric); E03.9 Hypothyroidism, unspecified; Z23 Encounter for immunization; Z20.822 Contact with and (suspected) exposure to COVID-19; Z91.199 Patient's noncompliance with other medical treatment and regimen due to unspecified reason; Z79.01 Long term (current) use of anticoagulants; Z79.890 Hormone replacement therapy; Z79.899 Other long term (current) drug therapy
CPT/HCPCS: 0241U; 36415; 71046; 80048; 80053; 80162; 83735; 84439; 84443; 84484; 85025; 85027; 85610; 85730; 90656; 93005; 99285; J1160

== ENCOUNTER → 2024-09-13 11:07 | Outpatient (BNV) | payer OTHER, SELFPAY | PROVIDERS: Admitting Provider Student in an Organized Health Care Education/Training Program; Emergency Provider Emergency Medicine; PCP Internal Medicine; Visit Provider Internal Medicine | DX: R94.31 Abnormal electrocardiogram [ECG] [EKG] (principal) | CPT/HCPCS: 93010 ==

== ENCOUNTER → 2024-09-13 16:04 | Outpatient (BNV) | payer OTHER, SELFPAY | PROVIDERS: Admitting Provider Student in an Organized Health Care Education/Training Program; Emergency Provider Emergency Medicine; PCP Internal Medicine; Visit Provider Student in an Organized Health Care Education/Training Program | DX: I48.91 Unspecified atrial fibrillation (principal) | CPT/HCPCS: 99223; 99232; 99239 ==

== ENCOUNTER → 2024-09-13 16:04 | Outpatient (BNV) | payer OTHER, SELFPAY | PROVIDERS: Admitting Provider Student in an Organized Health Care Education/Training Program; Emergency Provider Emergency Medicine; PCP Internal Medicine; Visit Provider Internal Medicine | DX: I48.91 Unspecified atrial fibrillation (principal); C50.911 Malignant neoplasm of unspecified site of right female breast | CPT/HCPCS: 99223; 99233 ==

== ENCOUNTER → 2024-09-18 09:52 | Outpatient (BNVA) | payer OTHER, SELFPAY | PROVIDERS: PCP Internal Medicine; Visit Provider Internal Medicine Cardiovascular Disease ==

== ENCOUNTER 2024-09-18 11:15 | Outpatient (AMB) | payer OTHER, SELFPAY ==
--- NOTE | 2024-09-18 12:19 | MHC.OFFWIV ---
Intake Vital Signs 09/18/24 12:21 Height 5 ft 1 in BMI Reason not done Patient refused/unable BP 148/50 H Blood Pressure Location Rt brachial Position Sitting Pulse 80 Pulse Source Pulse Oximeter Pulse Oximetry (%) 95 Oxygen Delivery Method Room Air Intake Visit Reasons: EP Gout? Rash on lt arm Intake Note: Pt is here today for a rash on LT arm and states Rt foot has gout unable to walk on it. Patient Tobacco Use Status: Never used Tobacco Allergies erythromycin base Allergy (Intermediate, Verified 09/13/24 11:19) Abdominal Pain lisinopril Allergy (Intermediate, Verified 09/13/24 11:19) Rash Do you need a note to return to daycare/school/sports/work: No HPI HPI Comments History of Present Illness Details Patient is a 60-year-old female with multiple complaints today. Her 1st complaint is that she has bilateral lower extremity swelling. She tells me that it has gotten worse in the last week or so, she tells me she does take 20 mg of furosemide daily and has not missed any of her doses. Her 2nd complaint is that she thinks she has a skin infection on her left forearm. She tells me that last week she was noted to have a elevated heart rate when she was at a doctor's appointment, the nurse told her she go to the emergency room. While in the ED, they found she was in rapid AFib with RVR. They placed an IV in the emergency department and gave her some medications and she states that since they removed it, it has been red and painful. She tells me she went this morning to get an EKG and the nurse told her to have it looked at because it felt hard and warm. Her 3rd complaint is that she thinks she is having another gout flare. She states she woke up at 3 in the morning and took 1 of her colchicine pills but that does not seem to have helped. She tells me she has had gout before but she is not on any daily maintenance/preventative medications for it. She states it is very tender to touch and she had to sleep in the recliner so that there was not a sheet hitting her foot. She also notes that she was recently diagnosed with breast cancer and is having a lumpectomy on Wednesday and wants to make sure her issues are addressed so it does not prevent her from having surgery. [facility] Medical History Arthritis Depression HX: breast cancer SOB (shortness of breath) On anticoagulant therapy A-fib Hypothyroid Osteoporosis Urethral stenosis Depression with anxiety Thyroid cancer Acid reflux Kidney stone QAMAR (obstructive sleep apnea) Hypertension Knee pain, left Surgical History Hx of dilation of urethra Hx of cystoscopy H/O colonoscopy History of partial hysterectomy History of thyroidectomy Family History Mother Lung cancer Father HTN (hypertension) Melanoma Social History Household Members: Spouse Housing: House Are you a primary rn urgent care to a significant other at home: No Do you presently have visiting nurse or other home services: No Alcohol intake: current Alcohol intake frequency: does not drink Patient Tobacco Use Status: Never used Tobacco e-Cigarette/Vaping Use: Never Used service: No Current occupational status: unemployed Current occupation: right handed Cognitive needs: No Hearing needs: No Vision needs: Yes Female Reproductive History Menstrual Age of Menarche: 13 Review of Systems Const All systems reviewed & are unremarkable except as noted in HPI and below Physical Exam Vital Signs: Last Vital Signs Pulse 80 09/18/24 12:21 BP 148/50 H 09/18/24 12:21 Pulse Ox 95 09/18/24 12:21 Oxygen Delivery Method Room Air 09/18/24 12:21 Const General: cooperative, healthy appearing, comfortable, no acute distress and well developed Orientation/consciousness: patient oriented x3 Limitations: no limitations HEENT Head: Yes normal to inspection Ears: hearing grossly normal bilaterally General nose exam: Normal external nose present Face and sinus: Yes normal facial exam Eyes General: appearance normal, both eyes and all related structures Neck Neck: Yes normal visual inspection and Yes full ROM Resp Effort & Inspection: normal respiratory effort and able to speak in complete sentences Auscultation: clear to auscultation bilaterally Cardio Rate: regular rate Rhythm: regular rhythm Heart sounds: normal S1 and S2 Skin General skin exam: no rashes or lesions noted Neuro General: patient oriented x3 Extrem Other: Bilateral lower extremity swelling with 1+ pitting edema. Right great toe also is exquisitely tender, swollen and erythematous, patient has limited range of motion 2/2 pain, NVI. Left forearm has 3 cm x 2 cm area of erythema with induration, tenderness tell palpation and slight warmth Assessment & Plan Assessment & Plan (1) Gout flare: Code(s): M10.9 - Gout, unspecified Qualifiers: Gout site: foot Laterality: right Gout etiology: unspecified cause Qualified Code(s): M10.9 - Gout, unspecified Plan: Patient likely is having a gout flare based on HPI and exam. Can not prescribe colchicine as it is contraindicated with Multaq. We will send prednisone instead. (2) Cellulitis: Code(s): L03.90 - Cellulitis, unspecified Qualifiers: Site of cellulitis: extremity Site of cellulitis of extremity: upper extremity Laterality: left Qualified Code(s): L03.114 - Cellulitis of left upper limb Plan: Sent cefuroxime for cellulitis (3) Swelling of both lower extremities: Code(s): M79.89 - Other specified soft tissue disorders Plan: Vital signs are stable, lung sounds are clear, recommended patient double her 20 mg of p.o. furosemide for the next 3 days. If no improvement in her swelling, she should follow up with her PCP. Plan See above Medications: New cefuroxime axetil 500 mg PO Q12H 10 tabs 0RF prednisone 40 mg (2 x 20 mg) PO DAILY 10 tabs 0RF Coding Level of Care Code Est Pt Level 5 (18955) Diagnoses Acute gout of right foot, unspecified cause M10.9 Gout site: foot Laterality: right Gout etiology: unspecified cause Cellulitis of left upper extremity L03.114 Site of cellulitis: extremity Site of cellulitis of extremity: upper extremity Laterality: left Swelling of both lower extremities M79.89
[2024-09-18 12:21] VITALS: BP 148/50; PULSE 80; O2SAT 95
== END 2024-09-18 12:59 | disposition home or self-care (01) ==
PROVIDERS: PCP Internal Medicine; Visit Provider Physician Assistant
DX: M10.9 Gout, unspecified (principal); L03.114 Cellulitis of left upper limb; M79.89 Other specified soft tissue disorders

== ENCOUNTER 2024-09-19 09:52 | Outpatient (REF) | payer OTHER, SELFPAY ==
--- NOTE | ~2024-09-19 | MM_ITS ---
EXAMINATION: MM MAMMOGRAM GUIDED RFID LOCALIZATION BREAST, RIGHT CLINICAL INFORMATION: IDC, grade 1, 10:00 axis right breast, 10 cm from the nipple, measuring 1.2 x 1.0 x 1.0 cm by ultrasound. Localization with RFID tag. COMPARISON: 08/28/2024, 08/24/2024 TECHNIQUE NEEDLE LOC: Proper informed consent is obtained from the patient after discussion of the procedure, potential risks and complications, and alternatives including declining the procedure today. Patient was given an opportunity for questions. The patient appeared to understand. The patient consented to the procedure and signed the consent form. GUIDANCE: Digital mammography. APPROACH: Lateral to medial. TARGET: Spiculated mass with immediately abutting butterfly shaped biopsy clip. ANESTHESIA: carbonated lidocaine 1%: 4 mL. LOCALIZATION SYSTEM: [employer] LOCallizer Wire-Free Guidance System with 12g needle applicator. RADIOFREQUENCY TAG: ID # [id number] DERMATOTOMY: Single 1 mm skin-vincenzo dermatotomy performed. RF Tag ID confirmed with LOCalizer Guidance System prior to placement. The skin is prepped and local anesthesia administered. The needle is positioned and RFID tag deployed. Final images demonstrate the LOCalizer RF tag to reside immediately adjacent to the biopsy clip and spiculated mass. This is well positioned. The patient tolerated the procedure well and had no immediate complications. Dressing placed and home instructions reviewed. MM/MM RF Tag device RT IMPRESSION: -Status post right breast RFID localization. -Final CC and ML images were labeled appropriately for OR reference. Electronically signed by: Solomon King MD 09/19/2024 05:12 PM EDT
== END 2024-09-19 09:53 | disposition home or self-care (01) ==
LOC: HO.MAMMO 09:52
PROVIDERS: PCP Internal Medicine; Visit Provider Surgery
DX: C50.911 Malignant neoplasm of unspecified site of right female breast (principal)
CPT/HCPCS: 19281; C1819

== ENCOUNTER → 2024-09-19 10:00 | Outpatient (BNV) | payer OTHER, SELFPAY | PROVIDERS: PCP Internal Medicine; Visit Provider Radiology Diagnostic Radiology | DX: C50.211 Malignant neoplasm of upper-inner quadrant of right female breast (principal) | CPT/HCPCS: 19281 ==

== ENCOUNTER 2024-09-20 06:31 | Day surgery (SDC) | payer OTHER, SELFPAY ==
--- NOTE | 2024-09-13 09:51 | HO.ANESPROP2 ---
HPI - Anesthesia Eval Consult details Narrative: 64yo F for Right Breast Lumpectomy w/LOCalizer, [place] Node Biopsy, 09/20/24 No recent illness Reports occassional CP. Followed by [facility] Cardiology. Last office visit 05/2024. Coronary CTA which did not show any significant disease. Referred to pulmo for PAULINO. Encouraged tx for QAMAR, weight loss. [facility] pulmo eval 06/2024 with unclear etiology for PAULINO. Cardiopulmonary exercise testing ordered, but patient did not complete yet. Encouraged CPAP compliance,. At PAT eval, pt HR 120-140's. Pt agreeable to ED. Admit for afib with RVR. Inpt eval by cardiology - aware of breast surgery and need to interrupt anticoag so unable to perform cardioversion. Pt converted to sinus spontaneously with med tx. Meds adjusted at D/C. After d/c, pt seen at walk-in clinic and treated for: phlebitis (? r/t IV site) with antibiotic, gout with 40mg prednisone daily for 5 days, bilt LE +1 edema with doubling lasix dose for remaining preop days T/C to patient 09/19/24. Pt states all improving. PAULINO at baseline. No palpitations/CP. Case reviewed with Dr Ly. Yuly RUELAS to ensure edema improving/VSS. PMFSH Active Problems Active Problems: All Active Problems Invasive ductal carcinoma of right breast in female (Acute) Peripheral edema (Acute) Equivocal stress test (Acute) Shoulder pain, bilateral (Acute) Gout (Acute) A-fib (Acute) Dyspnea (Acute) Muscular aches (Acute) Microscopic hematuria (Acute) Morbid obesity (Acute) Lower back pain (Acute) Asymptomatic microscopic hematuria (Acute) Hip pain, left (Acute) Hypertension (Acute) Hypoventilation associated with obesity (Acute) Obstructive sleep apnea (Acute) Excessive daytime sleepiness (Acute) Snoring (Acute) Witnessed apneic spells (Acute) Hypothyroid (Acute) Osteoporosis (Acute) Hand edema (Acute) Hip pain (Acute) Dysuria (Acute) QAMAR (obstructive sleep apnea) (Acute) Knee pain, left (Acute) Past Medical History Medical History Arthritis HX: breast cancer SOB (shortness of breath) On anticoagulant therapy A-fib Hypothyroid Osteoporosis Urethral stenosis Depression with anxiety Thyroid cancer Acid reflux Kidney stone QAMAR (obstructive sleep apnea) Hypertension Knee pain, left Family History Family History Mother Lung cancer Father HTN (hypertension) Melanoma Family history of problems with anesthesia: No Surgical History Surgical History Hx of dilation of urethra Hx of cystoscopy H/O colonoscopy History of partial hysterectomy History of thyroidectomy History of Problems with Anesthesia: No Social History Social History Household Members: Spouse Housing: House Are you a primary respiratory care practitioner to a significant other at home: No Do you presently have visiting nurse or other home services: No Alcohol intake: current Alcohol intake frequency: does not drink Patient Tobacco Use Status: Never used Tobacco e-Cigarette/Vaping Use: Never Used service: No Current occupational status: unemployed Current occupation: right handed Cognitive needs: No Hearing needs: No Vision needs: Yes Meds Allergies Allergy/AdvReac Type Severity Reaction Status Date / Time erythromycin base Allergy Intermediate Abdominal Verified 09/20/24 07:20 Pain lisinopril Allergy Intermediate Rash Verified 09/20/24 07:20 Home Medications ?Medication ?Instructions ?Recorded ?Confirmed ?Last Taken ?Type cholecalciferol (vitamin D3) 50 50 mcg PO DAILY 10/03/20 09/19/24 09/12/24 History mcg (2,000 unit) capsule omeprazole 20 mg capsule,delayed 20 mg PO DAILY PRN Acid Reflux 11/17/23 09/19/24 09/20/24 06:00 History release colchicine 0.6 mg tablet 0.6 mg PO DAILY PRN Outbreak 09/13/24 09/19/24 Unknown History furosemide 20 mg tablet 20 mg PO BEDTIME 09/13/24 09/19/24 09/12/24 History levothyroxine 125 mcg tablet 250 mcg PO LESLIE@0630 09/13/24 09/19/24 09/20/24 06:00 History olmesartan 40 1 tab PO BEDTIME 09/13/24 09/19/24 09/12/24 History mg-hydrochlorothiazide 25 mg tablet rivaroxaban 20 mg tablet (Xarelto) 20 mg PO DAILY@1700 09/13/24 09/19/24 09/17/24 History Exam Pertinent Lab Results Pertinent Lab Results: Laboratory Tests 09/15/24 06:05 WBC 12.4 H Hgb 9.9 L Hct 32.5 L Plt Count 293 Sodium 141 Potassium 3.6 Chloride 103 Carbon Dioxide 28 BUN 27 H Creatinine 0.98 Narrative Narrative: EKG 09/18/24 SR with 1st deg AV block @ 76 RBBB PFT's 06/2024 Date of test: 11-Jul-2024 SPIROMETRY: FEV1 1.09, 53%; FVC 1.63, 64%; FEV1/FVC 67%; PEFR 3.77, 70%; Post FEV1 1.23, 60% (13%); FVC 1.67, 65% (2%); PEFR 4.10, 77%; (9%) SVC 1.63, 64% LUNG VOLUMES (Box): TLC 3.30, 76%; FRC 2.11, 91%; RV 1.67, 107%, IC 1.19, ERV 0.44; sGaw 0.16, predicted > 0.11 DIFFUSING CAPACITY: DLCO and KCO are 87% predicted adjusted for lung volume, barometric pressure DLCO 12.80, %, KCO 4.59, 113% not adjusted for Hb VA 2.79, 66% 1.63, 64%, 100% of FVC INTERPRETATION: Moderate obstruction. No significant response to bronchodilator. Mild restrictive defect. The diffusing capacity corrected to lung volume is normal. ECHO 11/2023 Conclusions: - Normal left ventricular cavity size. There is mildly increased left ventricular wall thickness. The left ventricular systolic function is hyperdynamic. The visually estimated ejection fraction is >70%. There is no evidence of regional wall motion abnormalities. Diastolic function is normal for age. - Normal right ventricular cavity size and systolic function. Assessment and Plan Assessment Anesthesia Assessment: Anesthesia Plan Discussed and PAT Visit Final Anesthetic Review Family History of Problems with Anesthesia: No History of Problems with Anesthesia: No
[2024-09-13 10:23] VITALS: BP 142/85; PULSE 125; RESP 18; O2SAT 97; BMI 48.2
[2024-09-20] VITALS (13 sets, daily range): BP systolic 120–157; BP diastolic 43–69; PULSE 63–70; RESP 16–18; TEMP 36.3–37.1; O2SAT 94–98
--- NOTE | ~2024-09-20 | MM_ITS ---
EXAMINATION: MM SPECIMEN X-RAY BREAST, RIGHT BREAST CLINICAL INDICATION: Right breast IDC, grade 1, 10:00 axis right breast, 10 cm from the nipple, measuring 1.2 x 1.0 x 1.0 cm by ultrasound; excision. COMPARISON: -RF ID localization 09/19/2024, right breast biopsy and postprocedural mammography 08/28/2024, diagnostic mammography 08/24/2024. -Leeds node injection right breast 09/20/2024 TECHNIQUE: 2 radiographs of the excised breast tissue is performed using digital mammography. FINDINGS/ MM/MM surgical specimen IMPRESSION: -2 sequential specimens submitted. -The larger specimen shows the biopsy clip, RF ID tag, and 1.2 cm spiculated mass slightly asymmetrically within the specimen. -The smaller specimen demonstrates no definite radiographic findings of significance. Results were called to Dr. Piotr Crenshaw in the operating room at the time of imaging. Electronically signed by: Solomon King MD 09/20/2024 03:57 PM EDT
--- NOTE | ~2024-09-20 | NM_ITS ---
EXAMINATION: NM LYMPHOSCINTIGRAPHY CLINICAL INFORMATION: Right breast IDC, grade 1, 10:00 axis right breast, 10 cm from the nipple, measuring 1.2 x 1.0 x 1.0 cm by ultrasound; for excision. COMPARISON: RF ID localization 09/19/2024, right breast biopsy and postprocedural mammography 08/28/2024, diagnostic mammography 08/24/2024. TECHNIQUE: Right breast lymphoscintigraphy injection was performed . Approximately 0.5 mCi of technetium 99m lymphoseek and 0.8 mL of saline was divided into 4 aliquots of approximately 0.125 mCi, and injected in 4 quadrants around the right breast areola intradermally at 12:00, 3:00, 6:00, and 9:00. Immediate images and delayed images were obtained in AP, oblique and lateral views 40 minutes later. FINDINGS: There is isotope activity in four-quadrant around right breast areola following injection on immediate imaging. At 40 minutes, there are at least 3 areas of isotope activity along the right inferior and mid right axilla suggestive of multiple lymph nodes. NM/NM sentinel node w imaging IMPRESSION: -At least 3 small lymph nodes seen in inferior and mid mid axilla on right breast lymphoscintigraphy. -Thank you for the courtesy of your referral. Electronically signed by: Solomon King MD 09/20/2024 12:10 PM EDT
[2024-09-20] MEDS: Lidocaine HCl 4 % Topical 50 ML SOLUTION 1 APPL TOPICAL (06:50)
[2024-09-20] MEDS: Lactated Ringers 1,000 ML 100 ML IVCONT (07:48)
--- NOTE | 2024-09-20 10:35 | MHC.SHP ---
Pre-Procedural Eval Section A - 24 Hr Update-Section A only Date of Service: 09/20/24 The patient is an INPATIENT: No Changes since office visit: Yes Patient answered all questions; No Cold of Flu in the past 2 weeks, No New Medical Problems and No Changes in Medication The patient has been examined within 24 hours of the surgical procedure. The History & Physical has been completed within 30 days and I have reviewed it.: Yes Section B - Complete if H&P > 30 days Chief Complaint: Malignant neoplasm of unspecified site of right Allergies: Allergies Allergy/AdvReac Type Severity Reaction Status Date / Time erythromycin base Allergy Intermediate Abdominal Verified 09/20/24 07:20 Pain lisinopril Allergy Intermediate Rash Verified 09/20/24 07:20 Plan Diagnosis/Plan: Unchanged I have reviewed the history and physical and performed a pertinent physical examination on my patient. No changes have occurred unless specified. Time Spent With Patient Time: Total time managing care of this patient today ____ minutes.
--- NOTE | 2024-09-20 10:41 | P.CONAN_ITS ---
[facility] Active Problems Active Problems: All Active Problems Swelling of both lower extremities (Acute) Cellulitis (Acute) Gout flare (Acute) Atrial fibrillation with rapid ventricular response (Acute) Invasive ductal carcinoma of right breast in female (Acute) Peripheral edema (Acute) Equivocal stress test (Acute) Shoulder pain, bilateral (Acute) Gout (Acute) Dyspnea (Acute) Muscular aches (Acute) Microscopic hematuria (Acute) Morbid obesity (Acute) Lower back pain (Acute) Asymptomatic microscopic hematuria (Acute) Hip pain, left (Acute) Hypoventilation associated with obesity (Acute) Obstructive sleep apnea (Acute) Excessive daytime sleepiness (Acute) Snoring (Acute) Witnessed apneic spells (Acute) Hand edema (Acute) Hip pain (Acute) Dysuria (Acute) A-fib (Acute) Hypertension (Acute) Hypothyroid (Acute) Osteoporosis (Acute) QAMAR (obstructive sleep apnea) (Acute) Knee pain, left (Acute) Past Medical History Medical History Arthritis HX: breast cancer SOB (shortness of breath) On anticoagulant therapy A-fib Hypothyroid Osteoporosis Urethral stenosis Depression with anxiety Thyroid cancer Acid reflux Kidney stone QAMAR (obstructive sleep apnea) Hypertension Knee pain, left Functional capacity: independent ambulation Patient : No Family History Family History Mother Lung cancer Father HTN (hypertension) Melanoma Family history of problems with anesthesia: No Surgical History Surgical History Hx of dilation of urethra Hx of cystoscopy H/O colonoscopy History of partial hysterectomy History of thyroidectomy History of Problems with Anesthesia: No Social History Social History Household Members: Spouse Housing: House Are you a primary human services care specialist to a significant other at home: No Do you presently have visiting nurse or other home services: No Alcohol intake: current Alcohol intake frequency: does not drink Patient Tobacco Use Status: Never used Tobacco e-Cigarette/Vaping Use: Never Used Use of substances other than those prescribed or required for medical reasons: No Have you been hit, kicked, punched, or otherwise hurt by someone within the past year? If so, by whom?: No Are you DNR?: No Advance Directives: No Advance Directives Information Provided: Yes Advance Directives on File: No Recently lost weight without trying: No Eating poorly because of decreased appetite: No Nutrition Risks: No Nutritional Risk Patient : No : No Poor oral hygiene: No service: No Current occupational status: unemployed Current occupation: right handed Cognitive needs: No Hearing needs: No Vision needs: Yes Meds Allergies Allergy/AdvReac Type Severity Reaction Status Date / Time erythromycin base Allergy Intermediate Abdominal Verified 09/20/24 07:20 Pain lisinopril Allergy Intermediate Rash Verified 09/20/24 07:20 Active Medications: Current Medications Lactated Ringer's (Lr) 1,000 mls @ 100 mls/hr IVCONT .Q10H ELIZABETH Last Admin: 09/20/24 07:48 Dose: 100 mls/hr Home Medications ?Medication ?Instructions ?Recorded ?Confirmed ?Last Taken ?Type cholecalciferol (vitamin D3) 50 50 mcg PO DAILY 10/03/20 09/19/24 09/12/24 History mcg (2,000 unit) capsule omeprazole 20 mg capsule,delayed 20 mg PO DAILY PRN Acid Reflux 11/17/23 09/19/24 09/20/24 06:00 History release colchicine 0.6 mg tablet 0.6 mg PO DAILY PRN Outbreak 09/13/24 09/19/24 Unknown History furosemide 20 mg tablet 20 mg PO BEDTIME 09/13/24 09/19/24 09/12/24 History levothyroxine 125 mcg tablet 250 mcg PO LESLIE@0630 09/13/24 09/19/24 09/20/24 06:00 History olmesartan 40 1 tab PO BEDTIME 09/13/24 09/19/24 09/12/24 History mg-hydrochlorothiazide 25 mg tablet rivaroxaban 20 mg tablet (Xarelto) 20 mg PO DAILY@1700 09/13/24 09/19/24 09/17/24 History Exam Height,Weight and Vital Signs: Height 5 ft 1 in Weight 115.666 kg Last Vital Signs Temp 98.8 F 09/20/24 07:20 Pulse 69 09/20/24 07:20 Resp 16 09/20/24 07:20 BP 132/55 L 09/20/24 07:20 Pulse Ox 95 09/20/24 07:20 O2 Del Method Room Air 09/20/24 07:20 Airway Mallampati Class: III TM Dist: >3cm Neck ROM: Full Heart: irreg. Lungs: CTA Assessment and Plan Assessment Anesthesia Assessment: Anesthesia Plan Discussed and Chart Reviewed Final Anesthetic Review Family History of Problems with Anesthesia: No History of Problems with Anesthesia: No NPO: Yes ASA Class: III Final Preanesthetic Review: Meds/Allgs Chart Reviewed, Consent Obtained/Reviewed and Anes Risks/Benef Reviewed Patient Risk: Intermediate Procedure Risk: Low Anesthetic Plan Anesthetic Plan: MAC: Disposition: Standard PACU
--- NOTE | 2024-09-20 12:02 | HO.ANESPROP2 ---
[facility] Active Problems Active Problems: All Active Problems Swelling of both lower extremities (Acute) Cellulitis (Acute) Gout flare (Acute) Atrial fibrillation with rapid ventricular response (Acute) Invasive ductal carcinoma of right breast in female (Acute) Peripheral edema (Acute) Equivocal stress test (Acute) Shoulder pain, bilateral (Acute) Gout (Acute) Dyspnea (Acute) Muscular aches (Acute) Microscopic hematuria (Acute) Morbid obesity (Acute) Lower back pain (Acute) Asymptomatic microscopic hematuria (Acute) Hip pain, left (Acute) Hypoventilation associated with obesity (Acute) Obstructive sleep apnea (Acute) Excessive daytime sleepiness (Acute) Snoring (Acute) Witnessed apneic spells (Acute) Hand edema (Acute) Hip pain (Acute) Dysuria (Acute) A-fib (Acute) Hypertension (Acute) Hypothyroid (Acute) Osteoporosis (Acute) QAMAR (obstructive sleep apnea) (Acute) Knee pain, left (Acute) Past Medical History Medical History Arthritis HX: breast cancer SOB (shortness of breath) On anticoagulant therapy A-fib Hypothyroid Osteoporosis Urethral stenosis Depression with anxiety Thyroid cancer Acid reflux Kidney stone QAMAR (obstructive sleep apnea) Hypertension Knee pain, left Functional capacity: independent ambulation Patient : No Family History Family History Mother Lung cancer Father HTN (hypertension) Melanoma Family history of problems with anesthesia: No Surgical History Surgical History Hx of dilation of urethra Hx of cystoscopy H/O colonoscopy History of partial hysterectomy History of thyroidectomy History of Problems with Anesthesia: No Social History Social History Household Members: Spouse Housing: House Are you a primary health care recruiter to a significant other at home: No Do you presently have visiting nurse or other home services: No Alcohol intake: current Alcohol intake frequency: does not drink Patient Tobacco Use Status: Never used Tobacco e-Cigarette/Vaping Use: Never Used Use of substances other than those prescribed or required for medical reasons: No Have you been hit, kicked, punched, or otherwise hurt by someone within the past year? If so, by whom?: No Are you DNR?: No Advance Directives: No Advance Directives Information Provided: Yes Advance Directives on File: No Recently lost weight without trying: No Eating poorly because of decreased appetite: No Nutrition Risks: No Nutritional Risk Patient : No : No Poor oral hygiene: No service: No Current occupational status: unemployed Current occupation: right handed Cognitive needs: No Hearing needs: No Vision needs: Yes Meds Allergies Allergy/AdvReac Type Severity Reaction Status Date / Time erythromycin base Allergy Intermediate Abdominal Verified 09/20/24 07:20 Pain lisinopril Allergy Intermediate Rash Verified 09/20/24 07:20 Active Medications: Current Medications Fentanyl (Fentanyl Citrate/Pf 100 Mcg/2 Ml Vial) 25 mcg IVPUSH Q5M PRN PRN Reason: Pain, Moderate to Severe (Pain Scale 4-10) Stop: 09/20/24 16:43 Lactated Ringer's (Lr) 1,000 mls @ 100 mls/hr IVCONT .Q10H ELIZABETH Last Admin: 09/20/24 07:48 Dose: 100 mls/hr Naloxone HCl (Naloxone Hcl 0.4 Mg/Ml Vial) 0.04 mg IVPUSH Q5M PRN PRN Reason: Excessive sedation or RR < 8 Ondansetron HCl (Ondansetron Hcl 4 Mg/2 Ml Vial) 4 mg IVPUSH ONCE PRN PRN Reason: Nausea and Vomiting Stop: 09/20/24 16:43 Home Medications ?Medication ?Instructions ?Recorded ?Confirmed ?Last Taken ?Type cholecalciferol (vitamin D3) 50 50 mcg PO DAILY 10/03/20 09/19/24 09/12/24 History mcg (2,000 unit) capsule omeprazole 20 mg capsule,delayed 20 mg PO DAILY PRN Acid Reflux 11/17/23 09/19/24 09/20/24 06:00 History release colchicine 0.6 mg tablet 0.6 mg PO DAILY PRN Outbreak 09/13/24 09/19/24 Unknown History furosemide 20 mg tablet 20 mg PO BEDTIME 09/13/24 09/19/24 09/12/24 History levothyroxine 125 mcg tablet 250 mcg PO LESLIE@0630 09/13/24 09/19/24 09/20/24 06:00 History olmesartan 40 1 tab PO BEDTIME 09/13/24 09/19/24 09/12/24 History mg-hydrochlorothiazide 25 mg tablet rivaroxaban 20 mg tablet (Xarelto) 20 mg PO DAILY@1700 09/13/24 09/19/24 09/17/24 History Exam Height,Weight and Vital Signs: Height 5 ft 1 in Weight 115.666 kg Last Vital Signs Temp 98.8 F 09/20/24 07:20 Pulse 69 09/20/24 07:20 Resp 16 09/20/24 07:20 BP 132/55 L 09/20/24 07:20 Pulse Ox 95 09/20/24 07:20 O2 Del Method Room Air 09/20/24 07:20 Airway Mallampati Class: II TM Dist: >3cm Neck ROM: Full Denture: Upper Heart: RRR Lungs: CTA Assessment and Plan Assessment Anesthesia Assessment: Anesthesia Plan Discussed and Chart Reviewed Final Anesthetic Review Family History of Problems with Anesthesia: No History of Problems with Anesthesia: No NPO: Yes ASA Class: III Final Preanesthetic Review: Meds/Allgs Chart Reviewed, Consent Obtained/Reviewed and Anes Risks/Benef Reviewed Patient Risk: Intermediate Procedure Risk: Low Anesthetic Plan Anesthetic Plan: GA Disposition: Standard PACU
--- NOTE | 2024-09-20 12:32 | W.PM.OPN ---
Operative Note Operative Note Date of Service: 09/20/24 Narrative: Preoperative diagnosis: Right breast invasive ductal carcinoma Postoperative diagnosis: Same Procedure: Right breast lumpectomy with localizer, right axillary sentinel node biopsy Surgeon: Piotr Crenshaw MD Electron Beam Photo Mask Technician: Sonam Zuniga PA-C Anesthesia: General LMA Indications for procedure: 64-year-old female patient found to have a density in the right breast at the upper outer quadrant. Subsequent core biopsy revealed invasive ductal carcinoma, ER/RI positive HER2 Brandon negative.. She presents today for right breast lumpectomy with localizer and right axillary sentinel node biopsy. Operative findings: LOCalizer and marking clip found within the specimen x-ray. Mass found on gross pathology. Specimen: Right breast lumpectomy with localizer, superior margin right breast lumpectomy, right axillary sentinel node 1 (1600 count). Estimated blood loss: 25 mL Complications: None Procedure details: Patient was brought to the OR and placed in a supine position. After administering general anesthesia the patient's right breast and axilla were prepped with ChloraPrep and draped in a sterile fashion. A surgical time-out was called the consent confirmed. Patient received preoperative antibiotics and Venodyne boots were in place. The localizer device was used to identify the area of activity in the upper outer quadrant right breast. A curvilinear incision was then made directly over this location and carried out through subcutaneous tissue after applying local anesthesia. Superior and inferior skin flaps were created using electrocautery. A core of tissue surrounding this localizer clip was then obtained, using the localizer as a guide. Dissection was begun with the medial margin followed by the superior margin, inferior margin, deep margin and finally lateral margin. Hemostasis was assured using electrocautery and free ties of 3-0 Polysorb suture. The specimen was removed and marked with a long suture at the lateral margin, short suture at the superior margin, and looped suture at the posterior margin. Specimen x-ray confirmed the marking clip and localizer within the specimen. The localizer clip was noted to be close to the superior margin therefore additional superior margin was obtained at this time. This was again marked with a long suture at the lateral margin, short suture at the superior margin and looped suture at the posterior margin. Both were sent to pathology for immediate gross. Central was then directed to the axilla. The gamma probe was used to identify the area of increased activity. It was found that the activity was within the breast incision close to the lumpectomy cavity. An area of increased activity was identified and a palpable node identified. This was grasped with an Allis clamp and excised using electrocautery. Hemostasis was assured using electrocautery and free ties of 3-0 Polysorb suture. A single hot node was identified and sent as sentinel node 1. No additional nodes could be identified. There were no palpable nodes appreciated within the axillary compartment level 1 or 2. The wounds were then irrigated with saline solution and suctioned dry. Wounds were again checked for hemostasis. Small hemoclips were used to martha the cavity of the lumpectomy. Deep breast tissue was reapproximated using interrupted 3-0 Polysorb sutures. Superficial breast tissue was reapproximated using interrupted 3-0 Polysorb sutures. Skin was then closed using a running subcuticular 4-0 Polysorb suture. Steri-Strips, 4 x 4 gauze and Tegaderm were then applied. The patient tolerated the procedure well. Sponge, instrument, and needle counts were reported as correct. The patient was transferred to PACU in stable condition.
[2024-09-20] MEDS: fentaNYL citrate/PF 100 MCG/2 ML VIAL 25 MCG IVPUSH ×4 (12:48→13:24)
--- NOTE | 2024-09-20 14:03 | HO.POSTANES ---
Post Anesthesia Evaluation Post Anesthesia Evaluation Date of Service: 09/20/24 Vital Signs: Vital Signs Temp Pulse Resp BP Pulse Ox O2 Del Method O2 Flow Rate 09/20/24 13:43 97.8 F 66 17 120/52 L 95 Room Air 09/20/24 13:28 65 17 135/57 L 95 Nasal Cannula 2 09/20/24 13:24 16 09/20/24 13:13 63 17 145/59 H 94 Nasal Cannula 2 09/20/24 13:09 17 09/20/24 13:08 67 17 96 Nasal Cannula 09/20/24 13:03 70 17 132/43 L 94 Nasal Cannula 2 09/20/24 12:58 68 17 136/46 L 95 Nasal Cannula 2 09/20/24 12:57 17 09/20/24 12:53 67 17 137/45 L 97 Simple Mask 4 09/20/24 12:48 65 17 147/66 H 98 Simple Mask 4 09/20/24 12:48 17 09/20/24 12:43 97.4 F 68 18 157/69 H 97 Simple Mask 4 09/20/24 07:20 98.8 F 69 16 132/55 L 95 Room Air
== END 2024-09-20 14:11 | disposition home or self-care (01) ==
PROVIDERS: PCP Internal Medicine; Visit Provider Surgery
PROC: (CPT 19301; principal; 2024-09-20 10:10)
PROC: (CPT 19301; 2024-09-20 10:10)
DX: C50.411 Malignant neoplasm of upper-outer quadrant of right female breast (principal); Z17.0 Estrogen receptor positive status [ER+]; Z17.21 Progesterone receptor positive status; Z17.32 Human epidermal growth factor receptor 2 negative status; I10 Essential (primary) hypertension; I48.91 Unspecified atrial fibrillation; F41.8 Other specified anxiety disorders; E89.0 Postprocedural hypothyroidism; Z85.850 Personal history of malignant neoplasm of thyroid; K21.9 Gastro-esophageal reflux disease without esophagitis; G47.33 Obstructive sleep apnea (adult) (pediatric); N20.0 Calculus of kidney; M81.0 Age-related osteoporosis without current pathological fracture; Z79.01 Long term (current) use of anticoagulants; Z79.899 Other long term (current) drug therapy; Z88.1 Allergy status to other antibiotic agents; Z88.8 Allergy status to other drugs, medicaments and biological substances; Z56.0 Unemployment, unspecified; Z98.890 Other specified postprocedural states
CPT/HCPCS: 19301; 38500; 78195; 88307; 88329; 88341; 88342; 88360; A9520; J0690; J1100; J2003; J2250; J2405; J2704; J3010

== ENCOUNTER → 2024-09-20 06:31 | Outpatient (BNV) | payer OTHER, SELFPAY | PROVIDERS: PCP Internal Medicine; Visit Provider Surgery | DX: C50.411 Malignant neoplasm of upper-outer quadrant of right female breast (principal) | CPT/HCPCS: 19301; 38525; 38900 ==

== ENCOUNTER → 2024-09-20 07:30 | Outpatient (BNV) | payer OTHER, SELFPAY | PROVIDERS: PCP Internal Medicine; Visit Provider Radiology Diagnostic Radiology | DX: C50.911 Malignant neoplasm of unspecified site of right female breast (principal) | CPT/HCPCS: 78195 ==

== ENCOUNTER 2024-09-27 13:23 | Outpatient (AMB) | payer OTHER, SELFPAY ==
--- NOTE | 2024-09-27 13:35 | A.OFFVIS_ITS ---
Vital Signs 09/27/24 13:36 Height 5 ft 1 in Weight 257 lb 0.944 oz BMI 48.6 BP 120/64 Blood Pressure Location Lt radial Position Sitting Pulse 98 Pulse Source Monitor Intake Visit Reasons: 3 mth f/up pft pulmoconsult Pressure Dispatcher Required: No Accompanied by: Self / Same As Patient Allergies erythromycin base Allergy (Intermediate, Verified 09/20/24 07:20) Abdominal Pain lisinopril Allergy (Intermediate, Verified 09/20/24 07:20) Rash Medication List - Last Reconciled 09/27/24 by Andrea Galarza MD cholecalciferol (vitamin D3) 50 mcg PO DAILY colchicine 0.6 mg PO DAILY PRN dronedarone (Multaq) 400 mg PO BID furosemide 20 mg PO BEDTIME levothyroxine 250 mcg PO LESLIE@0630 metoprolol succinate ER 100 mg PO BID olmesartan-hydrochlorothiazide 40-25 mg 1 tab PO BEDTIME omeprazole 20 mg PO DAILY PRN oxycodone 5 mg PO Q6H PRN rivaroxaban (Xarelto) 20 mg PO DAILY@1700 HPI Comments Details: Pleasant 64 year female who is here for follow-up. She was seen in the hospital when she presented with paroxysmal atrial fibrillation. She reverted back to sinus rhythm on her own. She was started on Eliquis for anticoagulation. She has been doing well since then. Her blood pressure has been elevated at this stage. She was taking on Olmesartan-hydrochlorothiazide combination as well as atenolol 100 mg once a day. blood pressure in the office is 152/74. She is denying any chest pain. She has some dyspnea on exertion which she think is due to her obesity. She has been diagnosed with sleep apnea and just received a CPAP mask which she will be starting. She has felt palpitations on couple of occasions but they were very short-lived and self-limiting. No bleeding issues. 11/17/2023: She returns for follow-up. She has 1 episode of dizziness and palpitations while she was out with her daughter for short lived. She also had some AFib episodes while she was in [place]. She is complaining of shortness of breath with activity. She is saying that this is somewhat chronic symptom and she feels limited by activity. She also has a lot of aching in her both legs. She is taking rivaroxaban for anticoagulation. No bleeding issues. She previously had a Lexiscan which was normal in August 2022. 02/28/2024: She returns for follow-up. She continues to get some dyspnea on exertion with activity. No palpitations and has been stable from AFib point of view. She had echocardiography which showed normal LVEF and had Holter monitor which did not show any recurrence of atrial fibrillation. Blood pressure is well controlled. 06/14/24: She returns for follow-up. Blood pressure is well controlled. She continues to get shortness of breath. She also has some lower extremity edema. Denying any orthopnea or PND but has known sleep apnea and has not been using her CPAP regularly. I have advised her that she should be using it regularly. She also has daytime sleepiness and fatigue which slows her down and probably adds to the deconditioning. She did not have any lung testing previously. 09/27/24: She is here for follow-up. Recent admission to [facility] when she presented with atrial fibrillation and converted to sinus rhythm. She was started on Multaq and discharged home. She said over the last couple of days she has been noticed that her pulse keeps jumping up and down on the pulse oximeter. She had felt some palpitations. She has some peripheral edema on examination. She is taking Lasix 20 mg daily. EKGs the office showing AFib. She just got diagnosed with lung cancer and lumpectomy was performed. She also had sentinel node biopsy and is seeing surgery tomorrow to discuss further management. [facility] Medical History (Updated 09/23/24 @ 00:02 by Gibran Ram) Arthritis HX: breast cancer SOB (shortness of breath) On anticoagulant therapy Invasive ductal carcinoma of right breast in female A-fib Hypothyroid Osteoporosis Urethral stenosis Depression with anxiety Thyroid cancer Acid reflux Kidney stone QAMAR (obstructive sleep apnea) Hypertension Knee pain, left Surgical History History of lumpectomy of right breast (09/20/24) Hx of dilation of urethra Hx of cystoscopy H/O colonoscopy History of partial hysterectomy History of thyroidectomy Family History Mother Lung cancer Father HTN (hypertension) Melanoma Social History Household Members: Spouse Housing: House Are you a primary progressive care manager to a significant other at home: No Do you presently have visiting nurse or other home services: No Alcohol intake: current Alcohol intake frequency: does not drink Patient Tobacco Use Status: Never used Tobacco e-Cigarette/Vaping Use: Never Used service: No Current occupational status: unemployed Current occupation: right handed Cognitive needs: No Hearing needs: No Vision needs: Yes Female Reproductive History Menstrual Age of Menarche: 13 Review of Systems Const Denies chills, Denies fatigue, Denies fever(s), Denies frequent falls, Denies weakness, Denies weight gain and Denies weight loss ENT Denies dizziness Card Denies chest pain, Denies leg edema, Denies lightheadedness, Denies palpitations, Denies dyspnea and Denies dyspnea on exertion Resp Denies cough, Denies dyspnea and Denies dyspnea on exertion GI Denies hematochezia Musc Denies abnormal gait, Denies muscle weakness, Denies numbness, Denies radiating pain into limb and Denies tingling Neuro Denies abnormal gait, Denies dizziness, Denies frequent falls, Denies numbness, Denies tingling and Denies weakness Endo Denies fatigue and Denies palpitations Physical Exam Vital Signs: Last Vital Signs Pulse 98 09/27/24 13:36 BP 120/64 09/27/24 13:36 BMI result Body Mass Index 48.6 GENERAL APPEARANCE: in no acute distress, pleasant. Obese. NECK: no carotid bruit, + jugular venous distention. SKIN: no suspicious lesions, warm and dry. HEART: no murmurs, irregular rate and rhythm. LUNGS: clear to auscultation bilaterally. ABDOMEN: soft, nontender. EXTREMITIES: +2 edema. PERIPHERAL PULSES: equal. NEUROLOGIC: No gross deficits, AAO X 3 Office Procedures EKG Details: Atrial fibrillation 98 beats per minute, normal axis, right bundle-branch block with QRS duration 132 milliseconds, QTC 523 milliseconds. [id number], Complete Assessment & Plan Assessment & Plan (1) Hypertension: Code(s): I10 - Essential (primary) hypertension Category: Medical (2) A-fib: Comment: paroxysmal, Echo and stress test nl 08/20, f/u cardiology Code(s): I48.91 - Unspecified atrial fibrillation Category: Medical Plan Pleasant 64 year female who is here for follow-up. She has paroxysmal atrial fibrillation. She also has some peripheral edema and mild JVD. Clinically she is in mild heart failure. She is in atrial fibrillation by ECG. Stop the Multaq. Start amiodarone 400 mg twice a day. Continue anticoagulation as before. Increase Lasix to 40 mg daily. We will see her back in few weeks. She is going to see General surgery tomorrow to discuss about center note biopsy results etc.. If no surgical plans in the coming months then we will consider cardioversion for her. She has been off anticoagulation for sentinel biopsy so we have to wait at least 4 weeks or do a ISAEL cardioversion. We will base that based on her symptoms. Thank you for allowing me to participate in the care of your patient. Please feel free to contact me if you have any questions. Medications: New furosemide (Lasix) 40 mg PO DAILY 90 tabs 3RF amiodarone 200 mg orally Take 1 tablets twice a day x 14 days then 1 tablet daily.; 120 tabs 3RF Discontinued dronedarone (Multaq) must administer with a meal/food Discontinued Reason: Doctor's Order 400 mg PO BID 180 tabs 0RF Coding Level of Care Code Est Pt Level 4 (41959) Diagnoses Hypertension I10 A-fib I48.91 CPT Codes EKG - CPT: 57356-[id number], Complete ([id number])
[2024-09-27 13:36] VITALS: BP 120/64; PULSE 98; BMI 48.6
== END 2024-09-27 14:24 | disposition home or self-care (01) ==
LOC: HO.HCS 13:24
PROVIDERS: PCP Internal Medicine; Visit Provider Internal Medicine Cardiovascular Disease
DX: I10 Essential (primary) hypertension (principal); I48.91 Unspecified atrial fibrillation
CPT/HCPCS: 93010; 99214

== ENCOUNTER → 2024-09-27 13:23 | Outpatient (BNVA) | payer OTHER, SELFPAY | PROVIDERS: PCP Internal Medicine; Visit Provider Internal Medicine Cardiovascular Disease | DX: I10 Essential (primary) hypertension (principal); I48.0 Paroxysmal atrial fibrillation; Z79.01 Long term (current) use of anticoagulants; Z79.899 Other long term (current) drug therapy | CPT/HCPCS: 93005 ==

== ENCOUNTER 2024-09-28 09:06 | Outpatient (AMB) | payer OTHER, SELFPAY ==
--- NOTE | 2024-09-28 09:14 | A.OFFVIS_ITS ---
Vital Signs 09/28/24 09:16 Height 5 ft 1 in Weight 257 lb 0.944 oz BMI 48.6 BP 168/74 H Blood Pressure Location Lt brachial Position Sitting Pulse 126 H Intake Visit Reasons: s/p Rt breast lumpectomy Intake Note: Patient is seen in office for post op assessment post right breast lumpectomy. Pt c/o: admits to sore and tender, feel a lump in the incision surgery: 09/20/24 Chain Pegger Required: No Accompanied by: Spouse Allergies erythromycin base Allergy (Intermediate, Verified 09/28/24 09:17) Abdominal Pain lisinopril Allergy (Intermediate, Verified 09/28/24 09:17) Rash Medication List - Last Reconciled 09/28/24 by Piotr Crenshaw MD amiodarone 200 mg orally Take 1 tablets twice a day x 14 days then 1 tablet daily.; cholecalciferol (vitamin D3) 50 mcg PO DAILY furosemide (Lasix) 40 mg PO DAILY levothyroxine 250 mcg PO LESLIE@0630 metoprolol succinate ER 100 mg PO BID olmesartan-hydrochlorothiazide 40-25 mg 1 tab PO BEDTIME omeprazole 20 mg PO DAILY PRN oxycodone 5 mg PO Q6H PRN rivaroxaban (Xarelto) 20 mg PO DAILY@1700 HPI Comments Details: 64-year-old female patient presenting with a recent mammogram dated 07/26/2024 with follow-up images obtained on 08/24/2024 with ultrasound also 08/24/2024. This revealed a radial scar in the right breast which was felt to be suspicious for malignancy. She subsequently underwent ultrasound-guided core biopsy on 08/28/2024 which revealed a right breast infiltrating ductal carcinoma, grade 1, ER positive, MO positive, HER2 Brandon negative, Ki-67 low. Her family history is negative for breast cancer. Her father has history of malignant melanoma. She is , and breastfed both her children. She did have a previous left breast biopsy with needle localization performed by Dr. Rooney which was benign. A right breast lumpectomy with sentinel node biopsy was performed on 09/20/2024. This confirmed right infiltrating ductal carcinoma. One sentinel node was negative for metastatic disease. She tolerated the procedure well. She reports being in AFib currently and is being evaluated by Cardiology. [facility] Medical History Arthritis HX: breast cancer SOB (shortness of breath) On anticoagulant therapy Invasive ductal carcinoma of right breast in female A-fib Hypothyroid Osteoporosis Urethral stenosis Depression with anxiety Thyroid cancer Acid reflux Kidney stone QAMAR (obstructive sleep apnea) Hypertension Knee pain, left Surgical History History of lumpectomy of right breast (09/20/24) Hx of dilation of urethra Hx of cystoscopy H/O colonoscopy History of partial hysterectomy History of thyroidectomy Family History Mother Lung cancer Father HTN (hypertension) Melanoma Social History Household Members: Spouse Housing: House Are you a primary pet caregiver to a significant other at home: No Do you presently have visiting nurse or other home services: No Alcohol intake: current Alcohol intake frequency: does not drink Patient Tobacco Use Status: Never used Tobacco e-Cigarette/Vaping Use: Never Used service: No Current occupational status: unemployed Current occupation: right handed Cognitive needs: No Hearing needs: No Vision needs: Yes Female Reproductive History Menstrual Age of Menarche: 13 Physical Exam Const General: no acute distress Nutritional Appearance: well nourished Orientation/consciousness: patient oriented x3 Limitations: ambulation with walker Chest Other: Well-healed incision in the upper outer quadrant of the right breast with a small amount of ecchymosis. Intact Steri-Strips are noted. No seroma or hematoma. Resp Effort & Inspection: normal respiratory effort, no audible wheezes, no cough and no respiratory distress Neuro General: patient oriented x3 Extrem Other: 1+ edema bilateral lower extremities Assessment & Plan Assessment & Plan (1) Invasive ductal carcinoma of right breast in female: Code(s): C50.911 - Malignant neoplasm of unspecified site of right female breast Category: Medical Plan 64-year-old female patient recently diagnosed with invasive ductal carcinoma of the right breast now status post right breast lumpectomy with sentinel node biopsy on 09/20/2024. He tolerated the procedure well the wounds are healing nicely. I recommended hematology oncology consultation. She will follow-up in a proximally 1 month. She is welcome to call sooner for any new concerns. Orders: Referrals Hematology & Oncology Referral C50.911 - Malignant neoplasm of unspecified site of right female breast Coding Level of Care Code Global (39557) Diagnoses Invasive ductal carcinoma of right breast in female C50.911
[2024-09-28 09:16] VITALS: BP 168/74; PULSE 126; BMI 48.6
== END 2024-09-28 09:23 | disposition home or self-care (01) ==
PROVIDERS: PCP Internal Medicine; Visit Provider Surgery
DX: C50.911 Malignant neoplasm of unspecified site of right female breast (principal)
CPT/HCPCS: 99024

== ENCOUNTER → 2024-09-28 09:06 | Outpatient (BNVA) | payer OTHER, SELFPAY | PROVIDERS: PCP Internal Medicine; Visit Provider Surgery ==

== ENCOUNTER 2024-10-10 11:12 | Outpatient (AMB) | payer OTHER, SELFPAY ==
--- NOTE | 2024-10-10 11:16 | MHC.OFFVIS ---
Vital Signs 10/10/24 11:24 Height 5 ft 1 in Weight 258 lb BMI 48.7 BP 129/63 Blood Pressure Location Lt brachial Position Sitting Pulse 82 Intake Visit Reasons: breast check (swollen, firm, warm no redness) Intake Note: Patient is seen in office for breast check. Pt c/o:right breast for the past 5 days feels swollen, firm, warm to the touch, like there liquid , itchy, last week had discharge coming out of the incision Nutrition Faculty Member Required: No Bonding Machine Tender: Bonding Machine Tender Present Accompanied by: Family/Other Allergies erythromycin base Allergy (Intermediate, Verified 10/10/24 11:27) Abdominal Pain lisinopril Allergy (Intermediate, Verified 10/10/24 11:27) Rash HPI Comments Details: 64-year-old female patient presenting with a recent mammogram dated 07/26/2024 with follow-up images obtained on 08/24/2024 with ultrasound also 08/24/2024 which revealed a radial scar in the right breast which was felt to be suspicious for malignancy. Subsequently ultrasound-guided core biopsy on 08/28/2024 revealed a right breast infiltrating ductal carcinoma, grade 1, ER positive, SD positive, HER2 Brandon negative, Ki-67 low. Her family history is negative for breast cancer. Her father has history of malignant melanoma. She is , and breastfed both her children. She did have a previous left breast biopsy with needle localization performed by Dr. Rooney which was benign. A right breast lumpectomy with sentinel node biopsy was performed on 09/20/2024. This confirmed right infiltrating ductal carcinoma, grade 1, 10.8 mm, with DCIS, grade 1 and 2, negative margins, with 1 sentinel node negative for metastases (pT1c pN0 (sn) (AJCC 8th ed.)), ER/SD positive, HER2 Brandon negative. She developed AFib post discharge and is being evaluated by Cardiology. She presents today for evaluation of increased breast pain and swelling. [facility] Medical History Arthritis HX: breast cancer SOB (shortness of breath) On anticoagulant therapy Invasive ductal carcinoma of right breast in female A-fib Hypothyroid Osteoporosis Urethral stenosis Depression with anxiety Thyroid cancer Acid reflux Kidney stone QAMAR (obstructive sleep apnea) Hypertension Knee pain, left Surgical History History of lumpectomy of right breast (09/20/24) Hx of dilation of urethra Hx of cystoscopy H/O colonoscopy History of partial hysterectomy History of thyroidectomy Family History Mother Lung cancer Father HTN (hypertension) Melanoma Social History Household Members: Spouse Housing: House Are you a primary critical care educator to a significant other at home: No Do you presently have visiting nurse or other home services: No Alcohol intake: current Alcohol intake frequency: does not drink Patient Tobacco Use Status: Never used Tobacco e-Cigarette/Vaping Use: Never Used service: No Current occupational status: unemployed Current occupation: right handed Cognitive needs: No Hearing needs: No Vision needs: Yes Female Reproductive History Menstrual Age of Menarche: 13 Physical Exam Vital Signs: Last Vital Signs Pulse 82 10/10/24 11:24 BP 129/63 10/10/24 11:24 BMI result Body Mass Index 48.7 Const General: no acute distress Nutritional Appearance: well nourished Orientation/consciousness: patient oriented x3 Limitations: ambulation with walker Chest Other: Well-healed incision in the upper outer quadrant of the right breast with a small amount of ecchymosis. No seroma or hematoma is palpable at this time. There is edema within the tissue but no evidence of infection at this time. Resp Effort & Inspection: normal respiratory effort, no audible wheezes, no cough and no respiratory distress Neuro General: patient oriented x3 Extrem Other: 1+ edema bilateral lower extremities Assessment & Plan Assessment & Plan (1) Invasive ductal carcinoma of right breast in female: Code(s): C50.911 - Malignant neoplasm of unspecified site of right female breast Category: Medical Plan 64-year-old female patient recently diagnosed with invasive ductal carcinoma of the right breast now status post right breast lumpectomy with sentinel node biopsy on 09/20/2024. She tolerated the procedure well returns today because of swelling in the incision. Examination today reveals no definite seroma or hematoma. There is edema within the tissue which may be making the breast feel heavier. No evidence of cellulitis or abscess. I would not recommend starting antibiotics at this time. I have asked her to return approximately 1 week for wound examination. She is due to see Dr. Koo. Coding Level of Care Code Global (57898) Diagnoses Invasive ductal carcinoma of right breast in female C50.911
[2024-10-10 11:24] VITALS: BP 129/63; PULSE 82; BMI 48.7
== END 2024-10-10 11:39 | disposition home or self-care (01) ==
PROVIDERS: PCP Internal Medicine; Visit Provider Surgery
DX: C50.911 Malignant neoplasm of unspecified site of right female breast (principal)
CPT/HCPCS: 99024

== ENCOUNTER → 2024-10-10 12:56 | Outpatient (BNV) | payer OTHER, SELFPAY | PROVIDERS: PCP Internal Medicine; Referring Provider Internal Medicine; Visit Provider Internal Medicine Medical Oncology | DX: C50.911 Malignant neoplasm of unspecified site of right female breast (principal) | CPT/HCPCS: 99204; 99213 ==

== ENCOUNTER → 2024-10-11 09:20 | Outpatient (BNVA) | payer OTHER, SELFPAY | PROVIDERS: PCP Internal Medicine; Visit Provider Internal Medicine Cardiovascular Disease ==

== ENCOUNTER 2024-10-31 09:25 | Outpatient (AMB) | payer OTHER, SELFPAY ==
--- NOTE | 2024-10-31 09:34 | A.OFFVIS_ITS ---
Vital Signs 3 10/31/24 09:46 Height 5 ft 1 in Weight 257 lb 2 oz BMI 48.6 BP 124/68 Blood Pressure Location Lt brachial Position Sitting Pulse 124 H Intake Visit Reasons: 1 mth s/p Rt breast lumpectomy Intake Note: Patient is seen in office for one month follow up visit, post breast lumpectomy. Pt c/o: incision a bit sore, seen Dr Hudson twice and schedule to see Radiation on [facility] 11/09/24, was Rx Letrozole will begin taking it this week Process Control Tech Required: No Homicide Squad Lieutenant: Homicide Squad Lieutenant Present Accompanied by: Self / Same As Patient Allergies erythromycin base Allergy (Intermediate, Verified 10/23/24 08:45) Abdominal Pain lisinopril Allergy (Intermediate, Verified 10/23/24 08:45) Rash Medication List - Last Reconciled 10/31/24 by Piotr Crenshaw MD amiodarone 200 mg orally Take 1 tablets twice a day x 14 days then 1 tablet daily.; cholecalciferol (vitamin D3) 50 mcg PO DAILY ferrous sulfate 325 mg PO BID furosemide (Lasix) 40 mg PO DAILY letrozole 2.5 mg PO DAILY levothyroxine 250 mcg PO LESLEI@0630 metoprolol succinate ER 100 mg PO BID olmesartan-hydrochlorothiazide 40-25 mg 1 tab PO BEDTIME omeprazole 20 mg PO DAILY PRN rivaroxaban (Xarelto) 20 mg PO DAILY@1700 HPI Comments Details: 64-year-old female patient presenting with a recent mammogram dated 07/26/2024 with follow-up images obtained on 08/24/2024 with ultrasound also 08/24/2024 which revealed a radial scar in the right breast which was felt to be suspicious for malignancy. Subsequently ultrasound-guided core biopsy on 08/28/2024 revealed a right breast infiltrating ductal carcinoma, grade 1, ER positive, MN positive, HER2 Brandon negative, Ki-67 low. Her family history is negative for breast cancer. Her father has history of malignant melanoma. She is , and breastfed both her children. She did have a previous left breast biopsy with needle localization performed by Dr. Rooney which was benign. A right breast lumpectomy with sentinel node biopsy was performed on 09/20/2024. This confirmed right infiltrating ductal carcinoma, grade 1, 10.8 mm, with DCIS, grade 1 and 2, negative margins, with 1 sentinel node negative for metastases (pT1c pN0 (sn) (AJCC 8th ed.)), ER/MN positive, HER2 Brandon negative. She developed AFib post discharge and is being evaluated by Cardiology. Since her last visit she reports decreased pain and swelling in the right operated breast. She is scheduled for a repeat CT of the neck to re-evaluate an area of swelling in the left anterior chest. She reports having a long history of a area of swelling in the left chest lateral to the sternum in his uncertain if this is what they are seeing on the CT. [facility] Medical History Arthritis HX: breast cancer SOB (shortness of breath) On anticoagulant therapy Invasive ductal carcinoma of right breast in female A-fib Hypothyroid Osteoporosis Urethral stenosis Depression with anxiety Thyroid cancer Acid reflux Kidney stone QAMAR (obstructive sleep apnea) Hypertension Knee pain, left Surgical History History of lumpectomy of right breast (09/20/24) Hx of dilation of urethra Hx of cystoscopy H/O colonoscopy History of partial hysterectomy History of thyroidectomy Family History Mother Lung cancer Father HTN (hypertension) Melanoma Social History Household Members: Spouse Housing: House Are you a primary care coordination manager to a significant other at home: No Do you presently have visiting nurse or other home services: No Alcohol intake: current Alcohol intake frequency: does not drink Patient Tobacco Use Status: Never used Tobacco e-Cigarette/Vaping Use: Never Used service: No Current occupational status: unemployed Current occupation: right handed Cognitive needs: No Hearing needs: No Vision needs: Yes Female Reproductive History Menstrual Age of Menarche: 13 Physical Exam Vital Signs: Last Vital Signs Pulse 124 H 10/31/24 09:46 BP 124/68 10/31/24 09:46 BMI result Body Mass Index 48.6 Const General: no acute distress Nutritional Appearance: well nourished Orientation/consciousness: patient oriented x3 Limitations: ambulation with walker Chest Other: Well-healed incision in the upper outer quadrant of the right breast with no ecchymosis. No seroma or hematoma is palpable at this time. There is edema within the tissue but no evidence of infection at this time. Chest/axillae images: 2 1. Area of swelling in the anterior left chest measuring approximately 3 cm in diameter. Resp Effort & Inspection: normal respiratory effort, no audible wheezes, no cough and no respiratory distress Neuro General: patient oriented x3 Extrem Other: 1+ edema bilateral lower extremities Assessment & Plan Assessment & Plan (1) Invasive ductal carcinoma of right breast in female: Code(s): C50.911 - Malignant neoplasm of unspecified site of right female breast Category: Medical Plan 64-year-old female patient recently diagnosed with invasive ductal carcinoma of the right breast now status post right breast lumpectomy with sentinel node biopsy on 09/20/2024. She tolerated the procedure well returns today because of swelling in the incision. Examination today reveals a well-healed incision in the right breast with no evidence of erythema, seroma or hematoma. She is scheduled for a CT of the neck later this week to evaluate a lump in the left chest. I have asked her to return approximately 3 months for follow-up examination, sooner p.r.n.. She will continue her follow-up with Dr. Koo. Coding Level of Care Code Global (48603) Diagnoses Invasive ductal carcinoma of right breast in female C50.911
[2024-10-31 09:46] VITALS: BP 124/68; PULSE 124; BMI 48.6
== END 2024-10-31 09:57 | disposition home or self-care (01) ==
PROVIDERS: PCP Internal Medicine; Visit Provider Surgery
DX: C50.911 Malignant neoplasm of unspecified site of right female breast (principal)
CPT/HCPCS: 99024

== ENCOUNTER → 2024-10-31 09:25 | Outpatient (BNVA) | payer OTHER, SELFPAY | PROVIDERS: PCP Internal Medicine; Visit Provider Surgery ==

== ENCOUNTER 2024-11-02 14:03 | Outpatient (REF) | payer OTHER, SELFPAY ==
--- NOTE | ~2024-11-02 | CT_ITS ---
EXAMINATION: CT SOFT TISSUE NECK WITH CONTRAST CLINICAL INFORMATION: Mass of the left distal clavicle. History of right breast IDC. COMPARISON: None available. TECHNIQUE: Following the intravenous administration of 60 mL of Omnipaque 350 intravenous contrast, helical imaging was performed in the axial plane with generation of coronal and sagittal reformatted images. This CT examination was performed using dose optimization techniques as appropriate, variously including the following: *Automated exposure control *Adjustment of mA and/or kV according to patient size (this includes techniques or standardized protocols for targeted exams where dose is matched to indication/reason for exam; i.e. extremities or head) *Use of iterative reconstruction technique DLP: 445 mGy-cm FINDINGS: Abutting the head of the PROXIMAL clavicle, just anterior, there is a mass abutting the pectoralis fascia medially, within the left medial upper breast (internal mammary region) measuring 2.5 x 3.5 x 3.2 cm, (AP, TRV, CC). This has central cystic foci suggesting necrosis. It is otherwise grossly smoothly marginated and very suspicious. There is otherwise no additional soft tissue mass, abnormal lymph nodes, or bony metastases evident in the imaged calvarium, cervical spine, and upper thoracic osseous structures. Small torus palatini present. Small amount of mucosal thickening dependent right maxillary sinus, and mucous retention cyst in the left sphenoid sinus. Paranasal sinuses, tympanic cavities, and mastoids otherwise clear. Severe diffuse fatty atrophy of both parotid glands present. Normal submandibular and sublingual glands. Mildly prominent tonsillar pillar soft tissues with tonsilloliths on the right. No retropharyngeal abnormality. Carotid sheath structures demonstrate mild calcification of the carotid bulbs bilaterally. Both CCAs are retropharyngeal. Parapharyngeal fat planes are undisturbed. Cloth Shader spaces appear normal. Mucosal space appears normal otherwise. No definite lesion. Visceral space demonstrates absence of the thyroid gland. Subtotal imaging of the intracranial structures demonstrates no mass effect, edema, or abnormal enhancement. Imaged superior mediastinal structures appear normal. No lymph nodes or masses. Imaged upper lungs from the hilar levels and cephalad demonstrate a 3 mm left upper lobe lateral pleural-based nodule (series 2, image 138). There is a nonspecific. There is a similar 3 mm pleural-based nodule in the lateral right upper lobe (series 2, image 145). There is no suspicious discrete osseous abnormality. Degenerative spinal changes are noted throughout the cervical and upper thoracic spine. CT/CT soft tissue neck w IV con IMPRESSION: 1. Soft tissue mass in the medial upper left breast just anterior to the head of the left clavicle, abutting the pectoralis shadow within the subcutaneous fat, partially necrotic, measuring 2.5 x 3.5 x 3.2 cm, suspicious for metastasis. Patient has history of right breast IDC. 2. No additional suspicious soft tissue masses, adenopathy, or osseous lesions identified. 3. Atrophy of the parotid glands. 4. Small torus palatini. 5. 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 Findings communicated to Dr. Koo via secure text at 10:15 AM, 11/08/2024. Electronically signed by: Solomon King MD 11/08/2024 10:34 AM [facility]
[2024-11-02] MEDS: iohexoL 350 MG/ML 100 ML INFUS..BTL IV (15:08)
--- OUTSIDE RECORDS SUMMARY | 2024-11-08 03:01 | XMS_ITS ---
Author Organization [facility] Address [address] [place] [id number] Care Team Providers Care Incising Machine Operator Name Role Phone Amita Ruiz MD Primary Care Provider Arie Eduardo Jr [phone] REASON FOR VISIT Xarelto Encounters Encounter Location Date Provider Diagnosis [facility] [address] [place] [id number] 09/22/2023 Arie Last Jr PLAN OF TREATMENT No Information
--- OUTSIDE RECORDS SUMMARY | 2024-11-08 03:01 | XMS_ITS ---
Author Organization [facility] Address [address] [place] [phone] Care Team Providers Care Ticket Attendant Name Role Phone Amita Ruiz MD Primary Care Provider UnavailArie Royal Jr REASON FOR VISIT pathology Encounters Encounter Location Date Provider Diagnosis [facility] [address] [place] [id number] 11/04/2023 Arie Last Jr PLAN OF TREATMENT No Information
--- OUTSIDE RECORDS SUMMARY | 2024-11-08 03:01 | XMS_ITS ---
Author Organization [facility] Address [address] [place] [address] Care Team Providers Care Warehouse Production Worker Name Role Phone Amita Ruiz MD Primary Care Provider UnavailArie Royal Jr [phone] REASON FOR VISIT screening Encounters Encounter Location Date Provider Diagnosis [facility] [address] [place] [phone] 10/26/2023 Arie Last Jr Encounter for screening colonoscopy Z12.11 and Colon polyps K63.5 ASSESSMENTS Encounter Date Diagnosis Assessment Notes Treatment Notes Treatment Clinical Notes 10/26/2023 Encounter for screening colonoscopy (ICD-10 - Z12.11) 10/26/2023 Colon polyps (ICD-10 - K63.5) PLAN OF TREATMENT No Information
--- OUTSIDE RECORDS SUMMARY | 2024-11-08 03:01 | XMS_ITS | Patient Health Record ---
Author Organization [facility] Address [address] [place] [address] Care Team Providers Care Child Psychometrist Name Role Phone Amita Ruiz MD Primary Care Provider Arie Eduardo Jr Unavailable [phone] ALLERGIES Allergen (clinical drug ingredient) Drug/Non Drug Allergy documented on EMR Reaction Allergy Type Onset Date Status erythromycin Erythromycin Unknown Drug Allergy A ctive lisinopril Lisinopril Unknown Drug Allergy Activ e REASON FOR REFERRAL No Information MEDICATIONS Medication SIG (Take, Route, Frequency, Duration) Notes Start Date End Date Status Xarelto 20 MG Oral for 90 Acti ve Olmesartan Medoxomil-HCTZ 40 -25 MG Oral for 90 Active MiraLax (colon prep) 17 GM/SCOOP mixed with Gatorade or Crystal Light Orally begin at 5:00 p.m. the day before the procedure for 1 day 09/20/2023 Active Metoprolol Tartrate 50 MG Oral for 90 Active Vitamin D3 50 MCG (1999 UT) Oral for 90 Active hydroCHLOROthiazide 25 MG Oral for 60 Active Synthroid 125 MCG Oral for 90 Active Omeprazole 20 MG Oral for 90 A ctive IMMUNIZATIONS Vaccine Route Administration Date Status Comme nts Influenza Unknown 09/08/2022 Administered SOCIAL HISTORY Tobacco Use: Social History Observation Description Date Details (start date - stop date) Never Smoker NA - NA Sex Assigned At : Social History Observation Description Sex Assigned At Unknown Tobacco Use/Smoking Question Answer Notes Patient is a nonsmoker Alcohol Screen Question Answer Notes Did you have a drink containing alcohol in the p ast year? No Points 0 Interpretation Negative PROBLEMS Problem Type ICD Code Onset Dates Problem Status W/U Status Risk SNOMED Code Notes Problem Irritable bowel syndrome with both constipation and diarrhea (K58.2) Active confirmed 71895227 Problem Colon cancer screening (Z12.11) Active confirmed 605076272 PLAN OF TREATMENT Future Test Test Name Order Date COLONOSCOPY 09/20/2023 Insurance Providers Payer Name Payer Address Payer Phone Subscriber Number Group Number Insured Name Patient Relationship to Insured Coverage Start Date Coverage End Date [employer] [address] [place] [address] [id number] TIFFANY SOUZA Self - patient is the insured MEDICAL (GENERAL) HISTORY Medical History History ICD Code Hypertension Papillary thyroid carcinoma Uterine fibroids Microscopic hematuria QAMAR/CPAP Osteoporosis Atrial fibrillation Surgical History Surgery Date(Month/Year) Thyroidectomy, lymph node exploration an d removal partial hysterectomy 2016 Hospitalization History Reason Date(Month/Year) Atrial fibrillation with rapid ventricul ar response 01/21
== END 2024-11-02 14:04 | disposition home or self-care (01) ==
LOC: HO.CT 14:03
PROVIDERS: PCP Internal Medicine; Visit Provider Internal Medicine Medical Oncology
DX: C50.911 Malignant neoplasm of unspecified site of right female breast (principal); R22.1 Localized swelling, mass and lump, neck
CPT/HCPCS: 70491; Q9967

== ENCOUNTER → 2024-11-02 14:04 | Outpatient (BNV) | payer OTHER, SELFPAY | PROVIDERS: PCP Internal Medicine; Visit Provider Radiology Diagnostic Radiology | DX: R22.1 Localized swelling, mass and lump, neck (principal) | CPT/HCPCS: 70491 ==

== ENCOUNTER 2024-11-08 09:11 | Outpatient (AMB) | payer OTHER, SELFPAY ==
[2024-11-08 09:32] VITALS: BP 120/68; PULSE 85; TEMP 36.2; O2SAT 93; BMI 48.4
--- NOTE | 2024-11-08 09:32 | MHC.OFFWIV ---
Intake Vital Signs 11/08/24 09:32 Height 5 ft 1 in Weight 256 lb BMI 48.4 BP 120/68 Blood Pressure Location Lt brachial Position Sitting Pulse 85 Pulse Source Pulse Oximeter Temp 97.1 F Temp Source Temporal Artery Scan Pulse Oximetry (%) 93 Oxygen Delivery Method Room Air Intake Visit Reasons: EP Gout in LT foot Intake Note: Pt presents to the office today for c/o gout in her left foot and right index finger. Pt states she has a history of gout. Pt states this flare up started 4-5 days ago and it hard to walk on her left foot. Patient Tobacco Use Status: Never used Tobacco Allergies erythromycin base Allergy (Intermediate, Verified 11/08/24 09:35) Abdominal Pain lisinopril Allergy (Intermediate, Verified 11/08/24 09:35) Rash Medication List - Last Reconciled 11/08/24 by Felicia Britt MD amiodarone 200 mg orally Take 1 tablets twice a day x 14 days then 1 tablet daily.; cholecalciferol (vitamin D3) 50 mcg PO DAILY ferrous sulfate 325 mg PO BID furosemide (Lasix) 40 mg PO DAILY letrozole 2.5 mg PO DAILY levothyroxine 250 mcg PO LESLIE@0630 metoprolol succinate ER 100 mg PO BID olmesartan-hydrochlorothiazide 40-25 mg 1 tab PO BEDTIME omeprazole 20 mg PO DAILY PRN rivaroxaban (Xarelto) 20 mg PO DAILY@1700 HPI EP Gout in LT foot HPI Details Chief Complaint The patient presents for evaluation and management of an acute gout flare-up. History of Present Illness The patient is a 64-year-old female presenting with an acute exacerbation of gout. She reports a recurrent history of gout, typically affecting her big toe and occasionally her finger. This current flare has been ongoing for approximately four to five days, with pain also reported in the ball of her foot. She previously attempted self-treatment with colchicine for two days without relief. Additionally, the patient has been experiencing bilateral swelling of the feet, for which she is currently taking a diuretic. She mentions a recent diagnosis of breast cancer and is being managed by an oncologist. The patient also exhibits symptoms of anemia, with hemoglobin levels previously recorded as low as 8.8 g/dL, with a recent improvement to 10 g/dL. She is currently on iron supplementation, which has resulted in darkened stools, likely due to the iron therapy rather than internal bleeding. The patient is under the care of a residential housekeeper who is managing her cardiac medications, which may be contributing to the peripheral edema. She has an upcoming appointment with her primary care physician to address these concerns further. Plan For the acute gout exacerbation, I have decided to initiate treatment with prednisone due to previous ineffective response to colchicine and to avoid NSAID-related complications given the patient's impaired kidney function. The patient will be advised to observe for any improvement and report any adverse effects. Regarding the breast cancer diagnosis, follow-up with her oncologist, Dr. Koo, will continue as planned. No specific intervention from this consultation is required at this moment. For anemia, the patient is instructed to continue iron supplementation, understanding the cause of the stool discoloration as a benign effect of iron. Monitoring of hemoglobin levels will continue with the oncologist. The bilateral lower extremity edema is suspected to have a cardiac etiology given the involvement of her residential housekeeper in the management of medications. Elevated foot rest and adherence to diuretic therapy are advised. Further adjustment of cardiac medications by her residential housekeeper may be necessary. The patient will continue under observation for kidney function compromise. It will be pertinent to monitor her renal values closely during follow-up visits to ensure safe administration of her ongoing therapies. [facility] Medical History Arthritis HX: breast cancer SOB (shortness of breath) On anticoagulant therapy Invasive ductal carcinoma of right breast in female A-fib Hypothyroid Osteoporosis Urethral stenosis Depression with anxiety Thyroid cancer Acid reflux Kidney stone QAMAR (obstructive sleep apnea) Hypertension Knee pain, left Surgical History History of lumpectomy of right breast (09/20/24) Hx of dilation of urethra Hx of cystoscopy H/O colonoscopy History of partial hysterectomy History of thyroidectomy Family History Mother Lung cancer Father HTN (hypertension) Melanoma Social History Household Members: Spouse Housing: House Are you a primary patient care to a significant other at home: No Do you presently have visiting nurse or other home services: No Alcohol intake: current Alcohol intake frequency: does not drink Patient Tobacco Use Status: Never used Tobacco e-Cigarette/Vaping Use: Never Used service: No Current occupational status: unemployed Current occupation: right handed Cognitive needs: No Hearing needs: No Vision needs: Yes Female Reproductive History Menstrual Age of Menarche: 13 Review of Systems Const Denies chills and Denies fever(s) ENT Denies epistaxis and Denies nasal discharge Card Denies chest pain Resp Denies chest congestion, Denies cough and Denies hemoptysis GI Denies diarrhea and Denies nausea Skin/Breast Denies rash Neuro Reports no additional complaints Psych Reports no additional complaints Endo Reports no additional complaints Physical Exam Vital Signs: Last Vital Signs Temp 97.1 F 11/08/24 09:32 Pulse 85 11/08/24 09:32 BP 120/68 11/08/24 09:32 Pulse Ox 93 11/08/24 09:32 Oxygen Delivery Method Room Air 11/08/24 09:32 BMI result Body Mass Index 48.4 Const General: cooperative, comfortable and no acute distress Orientation/consciousness: patient oriented x3 HEENT Head: Yes normocephalic Eyes General: appearance normal, both eyes and all related structures Neck Other: Supple Neck: Yes supple Resp Effort & Inspection: normal respiratory effort, no cough and no stridor Cardio Other: Irregularly irregular Heart sounds: S1 normal heart sound present and S2 normal heart sound present Skin General skin exam: turgor normal Neuro Other: Motor sensory intact General: patient oriented x3, tone normal and moves all extremities Extrem Ankle/foot/toe images: 1. Swollen positive erythema very tender to palpate, vascular intact Psych Other: Normal effect, speech clear Assessment & Plan Assessment & Plan (1) Gout flare: Code(s): M10.9 - Gout, unspecified Qualifiers: Gout site: foot Gout etiology: unspecified cause Laterality: right Qualified Code(s): M10.9 - Gout, unspecified (2) Swelling of both lower extremities: Code(s): M79.89 - Other specified soft tissue disorders (3) Invasive ductal carcinoma of right breast in female: Code(s): C50.911 - Malignant neoplasm of unspecified site of right female breast (4) A-fib: Comment: paroxysmal, Echo and stress test nl 08/20, f/u cardiology Code(s): I48.91 - Unspecified atrial fibrillation Qualifiers: Atrial fibrillation type: unspecified chronic Qualified Code(s): I48.20 - Chronic atrial fibrillation, unspecified Plan Chief Complaint The patient presents for evaluation and management of an acute gout flare-up. History of Present Illness The patient is a 64-year-old female presenting with an acute exacerbation of gout. She reports a recurrent history of gout, typically affecting her big toe and occasionally her finger. This current flare has been ongoing for approximately four to five days, with pain also reported in the ball of her foot. She previously attempted self-treatment with colchicine for two days without relief. Additionally, the patient has been experiencing bilateral swelling of the feet, for which she is currently taking a diuretic. She mentions a recent diagnosis of breast cancer and is being managed by an oncologist. The patient also exhibits symptoms of anemia, with hemoglobin levels previously recorded as low as 8.8 g/dL, with a recent improvement to 10 g/dL. She is currently on iron supplementation, which has resulted in darkened stools, likely due to the iron therapy rather than internal bleeding. The patient is under the care of a residential housekeeper who is managing her cardiac medications, which may be contributing to the peripheral edema. She has an upcoming appointment with her primary care physician to address these concerns further. Plan For the acute gout exacerbation, I have decided to initiate treatment with prednisone due to previous ineffective response to colchicine and to avoid NSAID-related complications given the patient's impaired kidney function. The patient will be advised to observe for any improvement and report any adverse effects. Regarding the breast cancer diagnosis, follow-up with her oncologist, Dr. Koo, will continue as planned. No specific intervention from this consultation is required at this moment. For anemia, the patient is instructed to continue iron supplementation, understanding the cause of the stool discoloration as a benign effect of iron. Monitoring of hemoglobin levels will continue with the oncologist. The bilateral lower extremity edema is suspected to have a cardiac etiology given the involvement of her residential housekeeper in the management of medications. Elevated foot rest and adherence to diuretic therapy are advised. Further adjustment of cardiac medications by her residential housekeeper may be necessary. The patient will continue under observation for kidney function compromise. It will be pertinent to monitor her renal values closely during follow-up visits to ensure safe administration of her ongoing therapies. Medications: New prednisone 50 mg PO DAILY 5 days 5 tabs 0RF Coding Level of Care Code Est Pt Level 4 (50523) Diagnoses Acute gout of right foot, unspecified cause M10.9 Gout site: foot Gout etiology: unspecified cause Laterality: right Swelling of both lower extremities M79.89 Invasive ductal carcinoma of right breast in female C50.911 Chronic atrial fibrillation I48.20 Atrial fibrillation type: unspecified chronic
== END 2024-11-08 10:40 | disposition home or self-care (01) ==
PROVIDERS: PCP Internal Medicine; Visit Provider Internal Medicine
DX: M10.9 Gout, unspecified (principal); M79.89 Other specified soft tissue disorders; C50.911 Malignant neoplasm of unspecified site of right female breast; I48.20 Chronic atrial fibrillation, unspecified

== ENCOUNTER → 2024-11-08 09:11 | Outpatient (BNVA) | payer OTHER, SELFPAY | PROVIDERS: PCP Internal Medicine; Visit Provider Internal Medicine ==

== ENCOUNTER 2024-11-13 10:53 | Outpatient (AMB) | payer OTHER, SELFPAY ==
--- OUTSIDE RECORDS SUMMARY | 2024-11-13 10:58 | XMS_ITS ---
Author Organization [facility] Address [address] [place] [phone] Care Team Providers Care Registered Nurse Maternal Child Name Role Phone Amita Ruiz MD Primary Care Provider Arie Eduardo Jr REASON FOR VISIT Xarelto Encounters Encounter Location Date Provider Diagnosis [facility] [address] [place] [phone] 09/22/2023 Arie Last Jr PLAN OF TREATMENT No Information
--- OUTSIDE RECORDS SUMMARY | 2024-11-13 10:58 | XMS_ITS ---
Author Organization [facility] Address [address] [place] [phone] Care Team Providers Care Metrologist Name Role Phone Amita Ruiz MD Primary Care Provider UnavailArie Royal Jr REASON FOR VISIT pathology Encounters Encounter Location Date Provider Diagnosis [facility] [address] [place] [phone] 11/04/2023 Arie Last Jr PLAN OF TREATMENT No Information
--- OUTSIDE RECORDS SUMMARY | 2024-11-13 10:58 | XMS_ITS | Patient Health Record ---
Author Organization [facility] Address [address] [place] [address] Care Team Providers Care Human Resources Operations Specialist Name Role Phone Amita Ruiz MD Primary Care Provider Arie Eduardo Jr Unavailable ALLERGIES Allergen (clinical drug ingredient) Drug/Non Drug [...] both constipation and diarrhea (K58.2) Active confirmed [id number] Problem Colon cancer screening (Z12.11) Active confirmed [id number] PLAN OF TREATMENT Future Test Test Name Order Date COLONOSCOPY 09/20/2023 Insurance Providers Payer Name Payer Address Payer Phone Subscriber Number Group Number Insured Name Patient Relationship to Insured Coverage Start Date Coverage End Date [employer] [address] [place] [address] [phone] [id number] TIFFANY SOUZA Self - patient is the insured MEDICAL (GENERAL) HISTORY Medical History History ICD Code Hypertension Papillary thyroid carcinoma Uterine fibroids Microscopic hematuria QAMAR/CPAP Osteoporosis Atrial fibrillation Surgical History Surgery Date(Month/Year) Thyroidectomy, lymph node exploration an d removal partial hysterectomy 2016 Hospitalization History Reason Date(Month/Year) Atrial fibrillation with rapid ventricul ar response 01/21
--- OUTSIDE RECORDS SUMMARY | 2024-11-13 10:58 | XMS_ITS ---
Author Organization [facility] Address [address] [place] [address] Care Team Providers Care Director Of Accounts Payable Name Role Phone Amita Ruiz MD Primary Care Provider UnavailArie Royal Jr [phone] REASON FOR VISIT screening Encounters Encounter Location Date Provider Diagnosis [facility] [place] [address] [place] [phone] 10/26/2023 Arie Last Jr Encounter for screening colonoscopy Z12.11 and Colon polyps K63.5 ASSESSMENTS Encounter Date Diagnosis Assessment Notes Treatment Notes Treatment Clinical Notes 10/26/2023 Encounter for screening colonoscopy (ICD-10 - Z12.11) 10/26/2023 Colon polyps (ICD-10 - K63.5) PLAN OF TREATMENT No Information
[2024-11-13 11:06] VITALS: BP 124/60; PULSE 75; BMI 47.7
--- NOTE | 2024-11-13 11:06 | A.OFFVIS_ITS ---
Vital Signs 11/13/24 11:06 Height 5 ft 1 in Weight 252 lb 10.396 oz BMI 47.7 BP 124/60 Blood Pressure Location Lt radial Position Sitting Pulse 75 Pulse Source Monitor Intake Visit Reasons: 2 mth f/u Intake Note: 2 mth f/up Supervisor Agricultural Education Required: No Accompanied by: Self / Same As Patient Allergies erythromycin base Allergy (Intermediate, Verified 11/08/24 09:35) Abdominal Pain lisinopril Allergy (Intermediate, Verified 11/08/24 09:35) Rash Medication List - Last Reconciled 11/13/24 by Andrea Galarza MD amiodarone 200 mg PO DAILY cholecalciferol (vitamin D3) 50 mcg PO DAILY ferrous sulfate 325 mg PO BID furosemide (Lasix) 40 mg PO DAILY letrozole 2.5 mg PO DAILY levothyroxine 250 mcg PO LESLIE@0630 metoprolol succinate ER 100 mg PO BID olmesartan-hydrochlorothiazide 40-25 mg 1 tab PO BEDTIME omeprazole 20 mg PO DAILY PRN prednisone 50 mg PO DAILY 5 days rivaroxaban (Xarelto) 20 mg PO DAILY@1700 HPI Comments Details: Pleasant 64 year female who is here for follow-up. She was seen in the hospital when she presented with paroxysmal atrial fibrillation. She reverted back to sinus rhythm on her own. She was started on Eliquis for anticoagulation. She has been doing well since then. Her blood pressure has been elevated at this stage. She was taking on Olmesartan-hydrochlorothiazide combination as well as atenolol 100 mg once a day. blood pressure in the office is 152/74. She is denying any chest pain. She has some dyspnea on exertion which she think is due to her obesity. She has been diagnosed with sleep apnea and just received a CPAP mask which she will be starting. She has felt palpitations on couple of occasions but they were very short-lived and self-limiting. No bleeding issues. 11/17/2023: She returns for follow-up. She has 1 episode of dizziness and palpitations while she was out with her daughter for short lived. She also had some AFib episodes while she was in [place]. She is complaining of shortness of breath with activity. She is saying that this is somewhat chronic symptom and she feels limited by activity. She also has a lot of aching in her both legs. She is taking rivaroxaban for anticoagulation. No bleeding issues. She previously had a Lexiscan which was normal in August 2022. 02/28/2024: She returns for follow-up. She continues to get some dyspnea on exertion with activity. No palpitations and has been stable from AFib point of view. She had echocardiography which showed normal LVEF and had Holter monitor which did not show any recurrence of atrial fibrillation. Blood pressure is well controlled. 06/14/24: She returns for follow-up. Blood pressure is well controlled. She continues to get shortness of breath. She also has some lower extremity edema. Denying any orthopnea or PND but has known sleep apnea and has not been using her CPAP regularly. I have advised her that she should be using it regularly. She also has daytime sleepiness and fatigue which slows her down and probably adds to the deconditioning. She did not have any lung testing previously. 09/27/24: She is here for follow-up. Recent admission to [facility] when she presented with atrial fibrillation and converted to sinus rhythm. She was started on Multaq and discharged home. She said over the last couple of days she has been noticed that her pulse keeps jumping up and down on the pulse oximeter. She had felt some palpitations. She has some peripheral edema on examination. She is taking Lasix 20 mg daily. EKGs the office showing AFib. She just got diagnosed with lung cancer and lumpectomy was performed. She also had sentinel node biopsy and is seeing surgery tomorrow to discuss further management. 11/13/2024: She is here for follow-up. She is doing much better and is in sinus rhythm. She has right bundle-branch block on the EKG. She is currently on amiodarone 200 mg daily. She is on Xarelto. She continues to have lower extremity edema which has improved but still present. She had sentinel node biopsy which was negative. She is going to undergo radiation therapy for 3-4 weeks. [facility] Medical History Arthritis HX: breast cancer SOB (shortness of breath) On anticoagulant therapy Invasive ductal carcinoma of right breast in female A-fib Hypothyroid Osteoporosis Urethral stenosis Depression with anxiety Thyroid cancer Acid reflux Kidney stone QAMAR (obstructive sleep apnea) Hypertension Knee pain, left Surgical History History of lumpectomy of right breast (09/20/24) Hx of dilation of urethra Hx of cystoscopy H/O colonoscopy History of partial hysterectomy History of thyroidectomy Family History Mother Lung cancer Father HTN (hypertension) Melanoma Social History Household Members: Spouse Housing: House Are you a primary health care coordinator to a significant other at home: No Do you presently have visiting nurse or other home services: No Alcohol intake: current Alcohol intake frequency: does not drink Patient Tobacco Use Status: Never used Tobacco e-Cigarette/Vaping Use: Never Used service: No Current occupational status: unemployed Current occupation: right handed Cognitive needs: No Hearing needs: No Vision needs: Yes Female Reproductive History Menstrual Age of Menarche: 13 Review of Systems Const Denies chills, Denies fatigue, Denies fever(s), Denies frequent falls, Denies weakness, Denies weight gain and Denies weight loss ENT Denies dizziness Card Denies chest pain, Denies leg edema, Denies lightheadedness, Denies palpitations, Denies dyspnea and Denies dyspnea on exertion Resp Denies cough, Denies dyspnea and Denies dyspnea on exertion GI Denies hematochezia Musc Denies abnormal gait, Denies muscle weakness, Denies numbness, Denies radiating pain into limb and Denies tingling Neuro Denies abnormal gait, Denies dizziness, Denies frequent falls, Denies numbness, Denies tingling and Denies weakness Endo Denies fatigue and Denies palpitations Physical Exam Vital Signs: Last Vital Signs Pulse 75 11/13/24 11:06 BP 124/60 11/13/24 11:06 BMI result Body Mass Index 47.7 GENERAL APPEARANCE: in no acute distress, pleasant. Obese. NECK: no carotid bruit, no jugular venous distention. SKIN: no suspicious lesions, warm and dry. HEART: no murmurs, regular rate and rhythm. LUNGS: clear to auscultation bilaterally. ABDOMEN: soft, nontender. EXTREMITIES: + edema. PERIPHERAL PULSES: equal. NEUROLOGIC: No gross deficits, AAO X 3 Office Procedures EKG Details: Sinus rhythm 75 beats per minute, normal axis, right bundle-branch block with QRS duration 148 milliseconds, QTC 527 milliseconds. [id number], Complete Assessment & Plan Assessment & Plan (1) Hypertension: Code(s): I10 - Essential (primary) hypertension Category: Medical (2) A-fib: Comment: paroxysmal, Echo and stress test nl 08/20, f/u cardiology Code(s): I48.91 - Unspecified atrial fibrillation Category: Medical Qualifiers: Atrial fibrillation type: unspecified chronic Qualified Code(s): I48.20 - Chronic atrial fibrillation, unspecified Plan Pleasant 64 year female who is here for follow-up. She has paroxysmal atrial fibrillation. On last visit she was in mild heart failure and she was taken off the Multaq and started on amiodarone. She has maintained sinus rhythm since then and continues to be in sinus rhythm at this stage. She has done well with diuretics but still has some mild edema. I have advised her to increase the Lasix to 40 mg in the morning and 20 mg in the afternoon. She will try this for 1 week to see if the edema improves completely. If there is no significant change then she will just continue 1 tablet daily. Continue anticoagulation as before. As she gets through radiation therapy we will start looking at definitive treatment for atrial fibrillation. I think she will benefit from ablation. She has known sleep apnea and has not been compliant with CPAP and I have advised her to start using regularly. This will affect recurrence of atrial fibrillation and is a known risk factor. Thank you for allowing me to participate in the care of your patient. Please feel free to contact me if you have any questions. Orders: Orders Liver Panel Today Z51.81 - Encounter for therapeutic drug level monitoring TSH reflex Free T4 Today Z51.81 - Encounter for therapeutic drug level monitoring Medications: Changed From amiodarone 200 mg orally Take 1 tablets twice a day x 14 days then 1 tablet daily.; 120 tabs 3RF To amiodarone 200 mg PO DAILY Coding Level of Care Code Est Pt Level 4 (15784) Diagnoses Hypertension I10 Chronic atrial fibrillation I48.20 Atrial fibrillation type: unspecified chronic CPT Codes EKG - CPT: 35390-[id number], Complete ([id number])
== END 2024-11-13 11:33 | disposition home or self-care (01) ==
PROVIDERS: PCP Internal Medicine; Visit Provider Internal Medicine Cardiovascular Disease
DX: I10 Essential (primary) hypertension (principal); I48.20 Chronic atrial fibrillation, unspecified
CPT/HCPCS: 93010; 99214

== ENCOUNTER 2024-11-21 09:15 | Outpatient (REF) | payer OTHER, SELFPAY ==
--- OUTSIDE RECORDS SUMMARY | 2024-11-21 09:20 | XMS_ITS ---
Author Organization [facility] Address [address] [place] [phone] Care Team Providers Care Marine Radio Installer And Servicer Name Role Phone Amita Ruiz MD Primary Care Provider Arie Eduardo Jr REASON FOR VISIT Xarelto Encounters Encounter Location Date Provider Diagnosis [facility] [address] [place] [phone] 09/22/2023 Arie Last Jr PLAN OF TREATMENT No Information
--- OUTSIDE RECORDS SUMMARY | 2024-11-21 09:20 | XMS_ITS ---
Author Organization [facility] Address [address] [place] [address] Care Team Providers Care Skin Therapist Name Role Phone Amita Ruiz MD Primary Care Provider UnavailArie Royal Jr [phone] REASON FOR VISIT screening Encounters Encounter Location Date Provider Diagnosis [facility] [place] [address] [place] [id number] 10/26/2023 Arie Last Jr Encounter for screening colonoscopy Z12.11 and Colon polyps K63.5 ASSESSMENTS Encounter Date Diagnosis Assessment Notes Treatment Notes Treatment Clinical Notes 10/26/2023 Encounter for screening colonoscopy (ICD-10 - Z12.11) 10/26/2023 Colon polyps (ICD-10 - K63.5) PLAN OF TREATMENT No Information
--- OUTSIDE RECORDS SUMMARY | 2024-11-21 09:20 | XMS_ITS | Patient Health Record ---
Author Organization [facility] Address [address] [place] [address] Care Team Providers Care Adult Daycare Coordinator Name Role Phone Amita Ruiz MD Primary [...] both constipation and diarrhea (K58.2) Active confirmed [id number] Problem Colon cancer screening (Z12.11) Active confirmed [id number] PLAN OF TREATMENT Future Test Test Name Order Date COLONOSCOPY 09/20/2023 Insurance Providers Payer Name Payer Address Payer Phone Subscriber Number Group Number Insured Name Patient Relationship to Insured Coverage Start Date Coverage End Date [employer] [address] [place] [address] [id number] TIFFANY SOUZA Self - patient is the insured MEDICAL (GENERAL) HISTORY Medical History History ICD Code Hypertension Papillary thyroid carcinoma Uterine fibroids Microscopic hematuria QAMAR/CPAP Osteoporosis Atrial fibrillation Surgical History Surgery Date(Month/Year) Thyroidectomy, lymph node exploration an d removal partial hysterectomy 2016 Hospitalization History Reason Date(Month/Year) Atrial fibrillation with rapid ventricul ar response 01/21
[2024-11-21 10:37] LABS: Uric Acid 12.6 mg/dL (2.4-5.7)
== END 2024-11-21 09:16 | disposition home or self-care (01) ==
LOC: HO.HMGCLDS 09:15
PROVIDERS: PCP Internal Medicine; Visit Provider Internal Medicine
DX: M10.9 Gout, unspecified (principal)
CPT/HCPCS: 36415; 84550

== ENCOUNTER 2024-12-13 13:45 | Outpatient (AMB) | payer OTHER, SELFPAY ==
--- NOTE | 2024-12-13 13:46 | A.OFFVIS_ITS ---
Vital Signs 12/13/24 13:47 Height 5 ft 1 in Weight 257 lb 7.999 oz BMI 48.6 BP 140/62 H Blood Pressure Location Lt radial Position Sitting Pulse 47 L Pulse Source Monitor Intake Visit Reasons: f/up- [facility] Staffing Rn Required: No Accompanied by: Self / Same As Patient Allergies erythromycin base Allergy (Intermediate, Verified 11/08/24 09:35) Abdominal Pain lisinopril Allergy (Intermediate, Verified 11/08/24 09:35) Rash Medication List - Last Reconciled 12/13/24 by Jeferson Sanchez NP allopurinol 200 mg (2 x 100 mg) PO DAILY amiodarone 200 mg PO DAILY cholecalciferol (vitamin D3) 50 mcg PO DAILY diltiazem HCl CD 120 mg PO DAILY ferrous sulfate 325 mg PO BID furosemide (Lasix) 40 mg PO DAILY letrozole 2.5 mg PO DAILY levothyroxine 250 mcg PO LESLIE@0630 metoprolol tartrate 100 mg PO BID omeprazole 20 mg PO DAILY PRN rivaroxaban (Xarelto) 20 mg PO DAILY@1700 HPI Comments Details: This is a 64-year-old female patient presenting for a hospital discharge follow- up. She has a medical history of paroxysmal AFib, hypertension, sleep apnea, obesity. Her AFib had been generally well controlled with amiodarone and metoprolol, mostly being in sinus rhythm. Recently, the patient experienced low O2 saturations on pulse oximeter at home, accompanied by significant coughing and shortness of breath. She went to an urgent care, where she tested positive for COVID-19 and was found to be in AFib with RVR. She was subsequently transferred to [facility], where she was admitted and treated for acute hypoxic respiratory failure related to COVID-19. During her hospitalization, she was treated with remdesivir and qualified for home oxygen therapy prior to discharge. The patient is currently using supplemental oxygen at 1 liters/minute via nasal cannula, the oxygen saturation in the low to mid 90s, which drops to high 80s without oxygen support. The patient also notes that she developed significant peripheral edema during her hospitalization, which she believes is due to receiving bunch of antibiotics and fluids. She was treated with IV medications for this issue in the hospital. Currently she complains of worsening leg swelling. The patient otherwise is denying any exertional chest pain, palpitations, dizziness, orthopnea, shortness of breath, PND, presyncope, or syncope. [facility] Medical History Arthritis HX: breast cancer SOB (shortness of breath) On anticoagulant therapy Invasive ductal carcinoma of right breast in female A-fib Hypothyroid Osteoporosis Urethral stenosis Depression with anxiety Thyroid cancer Acid reflux Kidney stone QAMAR (obstructive sleep apnea) Hypertension Knee pain, left Surgical History History of lumpectomy of right breast (09/20/24) Hx of dilation of urethra Hx of cystoscopy H/O colonoscopy History of partial hysterectomy History of thyroidectomy Family History Mother Lung cancer Father HTN (hypertension) Melanoma Social History Household Members: Spouse Housing: House Are you a primary health care legal assistant to a significant other at home: No Do you presently have visiting nurse or other home services: No Alcohol intake: current Alcohol intake frequency: does not drink Patient Tobacco Use Status: Never used Tobacco e-Cigarette/Vaping Use: Never Used service: No Current occupational status: unemployed Current occupation: right handed Cognitive needs: No Hearing needs: No Vision needs: Yes Female Reproductive History Menstrual Age of Menarche: 13 Review of Systems Const Denies chills, Denies fatigue, Denies fever(s), Denies frequent falls, Denies weakness, Denies weight gain and Denies weight loss ENT Denies dizziness Card Denies chest pain, Denies leg edema, Denies lightheadedness, Denies palpitations, Denies dyspnea and Denies dyspnea on exertion Resp Denies cough, Denies dyspnea and Denies dyspnea on exertion GI Denies hematochezia Musc Denies abnormal gait, Denies muscle weakness, Denies numbness, Denies radiating pain into limb and Denies tingling Neuro Denies abnormal gait, Denies dizziness, Denies frequent falls, Denies numbness, Denies tingling and Denies weakness Endo Denies fatigue and Denies palpitations Physical Exam Vital Signs: Last Vital Signs Pulse 47 L 12/13/24 13:47 BP 140/62 H 12/13/24 13:47 BMI result Body Mass Index 48.6 Const General: cooperative, healthy appearing, comfortable and no acute distress Orientation/consciousness: patient oriented x3 HEENT Head: Yes normal to inspection Neck Neck: Yes normal visual inspection, Yes trachea midline and Yes supple Chest Chest palpation & inspection: normal inspection of the chest Resp Effort & Inspection: normal respiratory effort (on O2 supplement) Auscultation: no crackles, no rales, rhonchi left upper, no wheezes and diminished lung sounds bilateral in the lower lung [place] Cardio Jugular venous distension: no JVD Rate: bradycardic Rhythm: regular rhythm Heart sounds: S1 normal heart sound present, S2 normal heart sound present, no click, no gallops, no murmurs and no rubs Peripheral pulses: Peripheral pulses 2+ throughout GI Inspection: Yes normal to inspection Palpation (GI): Soft to palpation Auscultation: normal bowel sounds Skin General skin exam: no rashes or lesions noted Neuro General: patient oriented x3 Extrem General: Yes no pedal edema, Yes calf tenderness and Yes edema (b/l 2+ lower leg edema) Psych Appearance: grossly normal Mental Status: mental status grossly normal Speech and movement: Normal speech and movement present Office Procedures EKG Details: EKG today showed sinus Arthur with sinus arrhythmia at 47 beats per minute, right bundle branch block, with nonspecific ST-T wave abnormalities, [place], [place] [id number], Complete Assessment & Plan Assessment & Plan (1) Hospital discharge follow-up: Code(s): Z09 - Encounter for follow-up examination after completed treatment for conditions other than malignant neoplasm Plan: Patient was discharged home on supplemental oxygen and was initiated on Cardizem therapy. However, her recent EKG showed sinus Arthur with a heart rate of 47 beats per minute. Patient is on amiodarone and metoprolol already. Given this finding, we will discontinue the Cardizem therapy for now. Echo at [facility] showed -normal EF of 60-65%, [id number] mitral valve regurgitation, trivial pericardial effusion. (2) A-fib: Code(s): I48.91 - Unspecified atrial fibrillation Category: Medical Qualifiers: Atrial fibrillation type: paroxysmal Qualified Code(s): I48.0 - Paroxysmal atrial fibrillation Plan: Continue Xarelto for anticoagulation. Continue with amiodarone and metoprolol therapy for rhythm and rate control. Patient recently got a cardia mobile device to monitor her heart rhythm at home, and she will begin using it is instructed. She is advised to report any episodes of AFib should they occur. Today's EKG showed sinus rhythm. (3) Peripheral edema: Code(s): R60.0 - Localized edema Category: Medical Plan: Patient has bilateral lower leg 2+ pitting edema. To address the fluid retention, we will increase her Lasix dosage to 40 mg twice a day. Advised low- salt intake, fluid restriction 1.5 L per day. (4) Hypertension: Code(s): I10 - Essential (primary) hypertension Category: Medical Plan: Blood pressure today is elevated. With the discontinuation of diltiazem, patient's blood pressure may arise. Increasing the Lasix dosage may help manage this elevation. We will schedule a sooner follow-up appointment to monitor her blood pressure and leg swelling. If her blood pressure remains elevated at that time, we may consider adding an RICARDO-I or ARB to her regimen. (5) Obstructive sleep apnea: Code(s): G47.33 - Obstructive sleep apnea (adult) (pediatric) Category: Medical Plan: Patient is not using her CPAP machine, although she says she has 1 at home from several years ago. She is requesting to be fitted again for CPAP, with an adapter for her oxygen supplement. We will refer her back to sleep Clinic for a mask fitting. Emphasized the importance of adhering to CPAP therapy to manage her sleep apnea. (6) Morbid obesity: Code(s): E66.01 - Morbid (severe) obesity due to excess calories Category: Medical Plan: Recommend heart healthy diet, exercise, and losing weight. Follow-up in one month. In the interim, patient will call us with any concerns. This note was generated using voice recognition software. While every effort has been made to ensure accuracy and proper records associate, there may be occasional errors that could affect the content or meaning of the described symptoms. Orders: Orders AMB EKG-In Office Today I48.20 - Chronic atrial fibrillation, unspecified Referrals Sleep Medicine Referral G47.33 - Obstructive sleep apnea (adult) (pediatric) Medications: Changed From furosemide (Lasix) 40 mg PO DAILY 90 tabs 3RF To furosemide (Lasix) 40 mg PO BID 90 tabs 3RF Coding Level of Care Code Est Pt Level 4 (89228) Diagnoses Hospital discharge follow-up Z09 Paroxysmal atrial fibrillation I48.0 Atrial fibrillation type: paroxysmal Peripheral edema R60.0 Hypertension I10 Obstructive sleep apnea G47.33 Morbid obesity E66.01 CPT Codes EKG - CPT: 06813-[id number], Complete ([id number]) Time Spent (min) 32 Comment Time spent in reviewing the chart, test results, assessment, counseling and documentation.
[2024-12-13 13:47] VITALS: BP 140/62; PULSE 47; BMI 48.6
== END 2024-12-13 14:18 | disposition home or self-care (01) ==
PROVIDERS: PCP Internal Medicine
DX: Z09 Encounter for follow-up examination after completed treatment for conditions other than malignant neoplasm (principal); I48.0 Paroxysmal atrial fibrillation; R60.0 Localized edema; I10 Essential (primary) hypertension; G47.33 Obstructive sleep apnea (adult) (pediatric); E66.01 Morbid (severe) obesity due to excess calories
CPT/HCPCS: 93010; 99214

== ENCOUNTER → 2024-12-13 13:45 | Outpatient (BNVA) | payer OTHER, SELFPAY | PROVIDERS: PCP Internal Medicine | DX: Z09 Encounter for follow-up examination after completed treatment for conditions other than malignant neoplasm (principal); I48.0 Paroxysmal atrial fibrillation; R60.0 Localized edema; I10 Essential (primary) hypertension; G47.33 Obstructive sleep apnea (adult) (pediatric); E66.01 Morbid (severe) obesity due to excess calories; Z68.42 Body mass index [BMI] 45.0-49.9, adult; Z79.01 Long term (current) use of anticoagulants; Z79.899 Other long term (current) drug therapy | CPT/HCPCS: 93005 ==

== ENCOUNTER 2024-12-19 11:53 | Outpatient (AMB) | payer OTHER, SELFPAY ==
[2024-12-19 11:54] VITALS: BP 120/74; PULSE 86; O2SAT 98; BMI 48.4
--- NOTE | 2024-12-19 11:54 | MHC.PC.OV ---
Vital Signs 12/19/24 11:54 Height 5 ft 1 in Weight 256 lb BMI 48.4 BP 120/74 Blood Pressure Location Lt brachial Position Sitting Pulse 86 Pulse Source Pulse Oximeter Pulse Oximetry (%) 98 Oxygen Delivery Method Nasal Cannula Intake Visit Reasons: Gout Intake Note: Pt is here today for a sick visit. Pt c/o gout flare up. Pt c/o feet swelling and toe starting to get red. Allergies erythromycin base Allergy (Intermediate, Verified 12/19/24 11:59) Abdominal Pain lisinopril Allergy (Intermediate, Verified 12/19/24 11:59) Rash Medication List - Last Reconciled 12/19/24 by Amita Ruiz MD allopurinol 200 mg (2 x 100 mg) PO DAILY amiodarone 200 mg PO DAILY cholecalciferol (vitamin D3) 50 mcg PO DAILY ferrous sulfate 325 mg PO BID furosemide (Lasix) 40 mg PO BID letrozole 2.5 mg PO DAILY levothyroxine 250 mcg PO LESLIE@0630 metoprolol tartrate 100 mg PO BID omeprazole 20 mg PO DAILY PRN rivaroxaban (Xarelto) 20 mg PO DAILY@1700 Tobacco use date assessed: 12/19/24 Fall risk assessment: No Falls in past year Last assessed Fall Risk: 12/19/24 Dental Screening Dental Screen Date: 12/19/24 Did you have a dental visit in the last 12 months?: Yes Did you have a dental problem in the last 6 months where you did not have access to dental care?: No Was dental information given to patient?: Patient has dentist HPI Gout HPI Details Patient presents for the follow-up of hospitalization at [facility] for 1 week for recurrent AFib with RVR and COVID infection requiring supplemental O2. Echocardiogram at [facility] showed normal ejection fraction normal right ventricle systolic function and mild to moderate mitral regurgitation Patient reports worsening lower extremity swelling since a discharge. She was seen by Cardiology AGILE TESTER last week and furosemide was increased from 40 to 80 mg a day without significant improvement. Patient reports improved oxygenation level since discharge at 98- 99% on 1 L nasal cannula. She denies cough PND orthopnea palpitations or chest pains. Heart rate has been controlled on amiodarone and metoprolol. [facility] Medical History (Updated 12/19/24 @ 12:45 by Amita Ruiz MD) Arthritis HX: breast cancer SOB (shortness of breath) On anticoagulant therapy Invasive ductal carcinoma of right breast in female A-fib Hypothyroid Osteoporosis Urethral stenosis Depression with anxiety Thyroid cancer Acid reflux Kidney stone QAMAR (obstructive sleep apnea) Hypertension Knee pain, left Surgical History History of lumpectomy of right breast (09/20/24) Hx of dilation of urethra Hx of cystoscopy H/O colonoscopy History of partial hysterectomy History of thyroidectomy Family History Mother Lung cancer Father HTN (hypertension) Melanoma Social History Household Members: Spouse Housing: House Are you a primary geriatric personal care aide to a significant other at home: No Do you presently have visiting nurse or other home services: No Alcohol intake: current Alcohol intake frequency: does not drink Patient Tobacco Use Status: Never used Tobacco e-Cigarette/Vaping Use: Never Used service: No Current occupational status: unemployed Current occupation: right handed Cognitive needs: No Hearing needs: No Vision needs: Yes Female Reproductive History Menstrual Age of Menarche: 13 Questionnaire Thrive Questionnaire Date Thrive assessed: 09/14/24 AUDIT C Alcohol Use Questionnaire (AUDIT-C) 1. How often do you have a drink containing alcohol?: Never 3. How often do you have six or more drinks on one occasion?: Never Total Score: 0 DARLEEN-7 AMB Questionnaire DARLEEN-7 Date DARLEEN - 7 assessed: 01/04/24 Source: Developed by Drs. Kenney Sweeney, Juana Oliva, Jiame Jiang and colleagues, with an educational petra from [employer] Review of Systems Const All systems reviewed & are unremarkable except as noted in HPI and below Eyes Reports no additional complaints ENT Reports no additional complaints Card Reports no additional complaints Resp Reports no additional complaints GI Reports no additional complaints Reports no additional complaints Physical exam (Primary Care) Vital Signs: Last Vital Signs Pulse 86 12/19/24 11:54 BP 120/74 12/19/24 11:54 Pulse Ox 98 12/19/24 11:54 Oxygen Delivery Method Nasal Cannula 12/19/24 11:54 BMI result Body Mass Index 48.4 Tobacco/Smoking Status: Tobacco use Status Tobacco use date assessed 12/19/24 12/19/24 12:03 Patient Tobacco Use Status Never used Tobacco 12/19/24 12:03 e-Cigarette/Vaping Use Never Used 12/19/24 12:03 Thrive Assessment: Date of Thrive Assessment Date Thrive assessed 09/14/24 12/19/24 12:03 Const General: no acute distress HENMT Head: Yes normal to inspection Face and sinus: Yes normal facial exam Eyes General: appearance normal, both eyes and all related structures Neck Neck: Yes supple Resp Effort & Inspection: normal respiratory effort Auscultation: diminished lung sounds Cardio Rhythm: regular rhythm Heart sounds: S1 normal heart sound present and S2 normal heart sound present GI Inspection: Yes normal to inspection Extrem Other: 3+ pitting edema bilaterally Coding Level of Care Code Est Pt Level 5 (68380) Complex EM visit Add On G2211 Diagnoses Paroxysmal atrial fibrillation I48.0 Atrial fibrillation type: paroxysmal (HFpEF) heart failure with preserved ejection fraction I50.30 Invasive ductal carcinoma of right breast in female C50.911 Hypoventilation associated with obesity E66.2 Assessment & Plan Assessment & Plan (1) A-fib: Code(s): I48.91 - Unspecified atrial fibrillation Category: Medical Qualifiers: Atrial fibrillation type: paroxysmal Qualified Code(s): I48.0 - Paroxysmal atrial fibrillation Plan: Continue amiodarone with metoprolol for rate control and anticoagulation on Xarelto (2) (HFpEF) heart failure with preserved ejection fraction: Comment: Echo [facility] 12/01/2024 LVEF 60-65%, nl RV, mild-mod MR Code(s): I50.30 - Unspecified diastolic (congestive) heart failure Category: Medical Plan: Continue 80 mg of furosemide at 50 mg of spironolactone check BMP and AND BNP in 3 days. Patient was advised to elevate lower extremities and decrease sodium intake. She was advised to monitor her weight daily (3) Invasive ductal carcinoma of right breast in female: Comment: 08/2024 s/p lumpectomy and radiation at [facility] Code(s): C50.911 - Malignant neoplasm of unspecified site of right female breast Category: Medical Plan: Has been getting radiation therapy at [facility] (4) Hypoventilation associated with obesity: Code(s): E66.2 - Morbid (severe) obesity with alveolar hypoventilation Category: Medical Plan: Patient will see sleep medicine to start CPAP Orders: Orders Basic Metabolic Panel 3 Days I48.0 - Paroxysmal atrial fibrillation, I50.30 - Unspecified diastolic (congestive) heart failure B Type Natriuretic Peptide 3 Days I48.0 - Paroxysmal atrial fibrillation, I50.30 - Unspecified diastolic (congestive) heart failure Complete Blood Count Auto Diff 3 Days I48.0 - Paroxysmal atrial fibrillation, I50.30 - Unspecified diastolic (congestive) heart failure Medications: New spironolactone 50 mg PO DAILY 90 tabs 0RF
--- OUTSIDE RECORDS SUMMARY | 2024-12-19 13:37 | XMS_ITS ---
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 Past Plans No past plan information found. Radiation Treatments * Treatment Site Started On Last Treated On Elapsed Days Fractions Complete Last Fraction Dose Given/Prescribed Total Dose Given/Prescribed Technique Right Breast 5 5 1 2 of 16 267 cGy / 267 cGy 534 cGy / 4,27 2 cGy Tangents Resolved Problems Problem Noted Date Diagnosed Date Resolved Date Anemia 11/07/2024 11/07/2024
--- OUTSIDE RECORDS SUMMARY | 2024-12-19 13:37 | XMS_ITS | Encounter Summary ---
Author Organization [facility] Address [address] [place] [address] Care Team Providers Care Tour Coordinator Name Role Phone Amita Ruiz MD Primary Care Provider [phone] Encounter Details Date Type Department Care Team (Late Contact Info) Description 12/18/2024 11:15 AM EST Hospital Encounter [facility] Radiation Oncology [address] [phone] Pari Martinez MD [address] [place] [address] Social History Tobacco Use Types Packs/Day Years Used Date Smoking Tobacco: Never Smokeless Tobacco: Never Alcohol Use Standard Drinks/Week Comments Not Currently 0 (1 standard drink = 0.6 oz pur e alcohol) Interpersonal Safety Answer Date Record ed Physical Abuse 12/01/2024 Verbal Abuse 12/01/2024 Sex and Gender Information Value Date Recorded Sex Assigned at Not on file Gender Identity Not on file Sexual Orientation Not on file Job Start Date Occupation Industry Not on file Not on file Not on file documented as of this encounter Plan of Treatment Upcoming Encounters Date Type Department Care Team (Late Contact Info) Description 12/20/2024 9:00 AM EST Appointment [facility] Radiation Oncology [address] [phone] 12/21/2024 9:00 AM EST Appointment [facility] Radiation Oncology [address] [phone] 12/22/2024 9:00 AM EST Appointment [facility] Radiation Oncology [address] [place] [phone] 12/22/2024 9:10 AM EST Appointment [facility] Radiation Oncology [address] [place] [phone] Radha Bourgeois MD [address] [place] [phone] 12/25/2024 9:00 AM EST Appointment [facility] Radiation Oncology [address] [place] [phone] 12/26/2024 9:00 AM EST Appointment [facility] Radiation Oncology [address] [place] [phone] 12/27/2024 9:00 AM EST Appointment [facility] Radiation Oncology [address] [place] [phone] 12/28/2024 9:00 AM EST Appointment [facility] Radiation Oncology [address] [place] [phone] 12/29/2024 9:00 AM EST Appointment [facility] Radiation Oncology [address] [place] [phone] 12/29/2024 9:10 AM EST Appointment [facility] Radiation Oncology [address] [place] [phone] Radha Bourgeois MD [address] [place] [phone] 01/01/2025 9:00 AM EST Appointment [facility] Radiation Oncology [address] [place] [phone] 01/02/2025 9:00 AM EST Appointment [facility] Radiation Oncology [address] [place] [phone] 01/03/2025 9:00 AM EST Appointment [facility] Radiation Oncology [address] [place] [phone] 01/04/2025 9:00 AM EST Appointment [facility] Radiation Oncology [address] [phone] 01/05/2025 9:00 AM EST Appointment [facility] Radiation Oncology [address] [place] [phone] 01/05/2025 9:10 AM EST Appointment [facility] Radiation Oncology [address] [place] [phone] Radha Bourgeois MD [address] [place] [phone] 01/08/2025 9:00 AM EST Appointment [facility] Radiation Oncology [address] [place] [phone] documented as of this encounter Visit Diagnoses Not on filedocumented in this encounter Additional Health Concerns Infection Onset Date Last Indicated Resolved Time COVID-19 12/01/2024 12/01/2024 documented as of this encounter Care Teams Tour Coordinator Relationship Specialty Start Date End Date Amita Ruiz MD [address] [place] [phone] PCP - General Internal Medicine 10/13/24 documented as of this encounter
--- OUTSIDE RECORDS SUMMARY | 2024-12-19 13:37 | XMS_ITS | Clinical Summary ---
Author Organization [facility] Address [address] [place] [address] Phone Care Team Providers Care Vessel Liner Name Role Phone Amita Ruiz MD Primary Care Provider [phone] Allergies Active Allergy Reactions Criticality Noted Date Comments Erythromycin Pain 11/07/2024 Abdominal pain Lisinopril Rash 11/07/2024 Medications Medication Sig Dispensed Refills Start Date End Date Status cholecalciferol (VITAMIN D-3) 50 mcg (2,000 unit) tablet Take 1 tablet (2,000 Units total) by mouth 1 (one) time each day. Active omeprazole (PriLOSEC) [address] capsule Take 1 capsule (20 mg total) by mouth 1 (one) time if needed. Do not crush or chew. Active levothyroxine (SYNTHROID, LEVOTHROID) 125 mcg tablet Take 2 tablets (250 mcg total) by mouth 1 (one) time each day before breakfast. Active rivaroxaban (XARELTO) 20 mg tablet Take 1 tablet (20 mg total) by mouth 1 (one) time each day with dinner. Take with food. Active ferrous sulfate 325 mg (65 mg iron) EC tablet Take 1 tablet (325 mg total) by mouth 2 (two) times a day. Do not crush, chew, or split. Active amiodarone (PACERONE) 200 mg tablet Take by mouth 1 (one) time each day. Active letrozole (FEMARA) 2.5 mg tablet Take 1 tablet (2.5 mg total) by mouth 1 (one) time each day Take with or without food. Active furosemide (LASIX) 40 mg tablet Take 1 tablet (40 mg total) by mouth 1 (one) time each day. 30 each 12/07/2024 01/06/2025 Active dexAMETHasone (DECADRON) 1 mg tablet Take 6 tablets (6 mg total) by mouth 1 (one) time each day for 4 days. 24 each 12/07/2024 Active dilTIAZem CD (CARDIZEM CD) 120 mg 24 hr capsule Take 1 capsule (120 mg total) by mouth 1 (one) time each day. 30 each 12/08/2024 01/07/2025 Active metoprolol tartrate (LOPRESSOR) 100 mg tablet Take 1 tablet (100 mg total) by mouth 2 (two) times a day. 60 each 12/07/2024 01/06/2025 Active olmesartan (BENICAR) 40 mg tablet Take 1 tablet (40 mg total) by mouth 1 (one) time each day. 12/01/2024 Discontinued(Di sc ontinued by another clinician) metoprolol succinate (TOPROL-XL) 100 mg 24 hr tablet Take 1 tablet (100 mg total) by mouth 1 (one) time each day. Do not crush or chew. 12/07/2024 Discontinued(St op Taking at Discharge) furosemide (LASIX) 40 mg tablet Take 0.5 tablets (20 mg total) by mouth 1 (one) time each day. 12/07/2024 Discontinued olmesartan-hydro CHLOROthiazide (BENICAR HCT) 40-25 mg per tablet Take 1 tablet by mouth 1 (one) time each day. 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 11/07/2024 Depression with anxiety 11/07/2024 Arthritis 11/07/2024 A-fib 11/07/2024 Hypothyroidism Resolved Problems Problem Noted Date Diagnosed Date Resolved Date Anemia 11/07/2024 11/07/2024 Encounters Date Type Department Care Team Description 12/19/2024 8:52 AM EST Hospital Encounter [facility] Radiation Oncology [address] [place] [phone] 12/18/2024 11:15 AM EST Hospital Encounter [facility] Radiation [facility] [address] [place] [phone] Pari Martinez MD 12/18/2024 10:53 AM EST Hospital Encounter [facility]iation [facility] [address] [place] [phone] 12/01/2024 11:09 AM EST - 12/01/2024 11:59 PM EST Hospital Encounter [facility] Radiation [facility] [address] [place] [phone] Discharge Disposition: Home or Self Care 12/01/2024 9:30 AM EST - 12/07/2024 4:56 PM EST Hospital Encounter [facility] [address] [place] [phone] Josh Carranza MD Kela, Kashyap Devendrabhai, MD Rasul, Yar M, MD Surendran, MD KEVIN Quiñones (Primary Dx); Peripheral edema Discharge Disposition: Home-Health Care [facility] [place] 12/01/2024 Telephone [facility]iation [facility] [address] [place] [phone] Hyacinth Pinzon RN has covid 11/16/2024 10:00 AM EST - 11/16/2024 11:59 PM EST Hospital Encounter [facility] [address] [place] [phone] Radha Bourgeois MD Malignant neoplasm of right breast in female, estrogen receptor positive, unspecified site of breast (CMS/HCC) Discharge Disposition: Home or Self Care 11/16/2024 9:13 AM EST - 11/16/2024 11:59 PM EST Hospital Encounter [facility] Radiation [facility]cology [address] [phone] Malignant neoplasm of upper-outer quadrant of right breast in female, estrogen receptor positive (CMS/HCC) (Primary Dx) Discharge Disposition: Home or Self Care 11/09/2024 12:49 PM EST - 11/09/2024 11:59 PM EST Hospital Encounter [facility] [address] [place] [phone] Radha Bourgeois MD Malignant neoplasm of upper-outer quadrant of right breast in female, estrogen receptor positive (CMS/HCC) (Primary Dx); Malignant neoplasm of right breast in female, estrogen receptor positive, unspecified site of breast (CMS/HCC) Discharge Disposition: Home or Self Care 11/09/2024 12:36 PM EST - 11/09/2024 11:59 PM EST Hospital Encounter [facility] [address] [place] [phone] Discharge Disposition: Home or Self Care 10/13/2024 Telephone [facility] [address] [place] [phone] Elena Connelly MA from Last 3 Months Surgical History Surgery Date Site/Laterality Comments COLONOSCOPY BREAST LUMPECTOMY 09/20/2024 Right PARTIAL HYSTERECTOMY THYROIDECTOMY CYSTOSCOPY Medical History Medical History Date Comments Cancer (CMS/HCC) Gout A-fib ([facility]/HCC) Thyroid cancer ([facility]/HCC) Sleep apnea Reflux esophagitis Family History Medical History Relation Name Comments malignant melanoma Father Lung cancer Mother Relation Name Status Comments Father Mother Social History Tobacco Use Types Packs/Day Years Used Date Smoking Tobacco: Never Smokeless Tobacco: Never Tobacco Cessation:Counseling Given: Not Answered Alcohol Use Standard Drinks/Week Comments Not Currently [...] file Not on file Not on file Obstetrics History Para Term AB IAB SAB Ectopic Multiple Livin g Live Births 2 2 Date Outcome GA Total Labor Labor/2nd/3rd Weight Sex Type Anes PTL Joan A1 A5 Name Clin Para Para Last Filed Vital Signs Vital Sign Reading Time Taken Comments Blood Pressure 130/73 12/07/2024 12:25 PM EST Pulse 98 12/07/2024 12:25 PM EST Temperature 36.3 ??C (97.4 ??F) 12/07/2024 12:[address] Respiratory Rate 16 12/07/2024 12:25 PM EST Oxygen Saturation 94% 12/07/2024 12:25 PM EST Inhaled Oxygen Concentration - - Weight 117 kg (257 lb 6.4 oz) 12/07/2024 5:00 AM EST Height 155 cm (5' 1.02 ) 12/05/2024 11:01 AM EST Body Mass Index 48.6 12/05/2024 11:01 AM EST Plan of Treatment Upcoming Encounters Date Type Department Care Team (Late st Contact Info) Description 12/20/2024 9:00 AM EST Appointment [facility] [address] [place] [phone] 12/21/2024 9:00 AM EST Appointment [facility] [address] [place] [phone] 12/22/2024 9:00 AM EST Appointment [facility] [address] [place] [phone] 12/22/2024 9:10 AM EST Appointment [facility] [address] [place] [phone] Radha Bourgeois MD [address] [place] [phone] 12/25/2024 9:00 AM EST Appointment [facility] [address] [place] [phone] 12/26/2024 9:00 AM EST Appointment [facility] [address] [place] [phone] 12/27/2024 9:00 AM EST Appointment [facility] [address] [place] [phone] 12/28/2024 9:00 AM EST Appointment [facility] [address] [place] [phone] 12/29/2024 9:00 AM EST Appointment [facility] [address] [place] [phone] 12/29/2024 9:10 AM EST Appointment [facility] [address] [place] [phone] Radha Bourgeois MD [address] [place] [phone] 01/01/2025 9:00 AM EST Appointment [facility] [address] [place] [phone] 01/02/2025 9:00 AM EST Appointment [facility] [address] [place] [phone] 01/03/2025 9:00 AM EST Appointment [facility] [address] [place] [phone] 01/04/2025 9:00 AM EST Appointment [facility] [address] [place] [phone] 01/05/2025 9:00 AM EST Appointment [facility] [address] [place] [phone] 01/05/2025 9:10 AM EST Appointment [facility] [address] [place] [phone] Radha Bourgeois MD [address] [place] [phone] 01/08/2025 9:00 AM EST Appointment [facility] [address] [place] [phone] Health Maintenance Due Date Last Done Comments Breast Cancer Screening 1960 Pneumococcal Vaccine: Pediatrics (0 to 5 Years) and At-Risk Patients (6 to 64 Years) (1 of 2 - PCV) 1966 DTaP,Tdap,and Td Vaccines (1 - Tdap) 1979 Zoster Vaccines (1 of 2) 1979 Cervical Cancer Screening: Pap Smear 1981 RSV Immunization Patients 60+ Years Old (1 - Risk 60-74 years 1-dose series) 2020 COVID-19 Vaccine ( - season) 2024 09/29/2021, 03/25/2021, 03/04/2021 Colorectal Cancer Screening: Colonoscopy 10/13/2024 Depression Screening 10/13/2024 HIV Screening 10/13/2024 Hepatitis C Screening 10/13/2024 Social Influencers of Health Screening 10/13/2024 Osteoporosis Screening (Bone Density Screening) 04/28/2034 04/28/2024, 04/09/2023, 03/27/2022, Additional history exists Influenza Vaccine Completed 09/14/2024, , 11/06/2021, Additional history exists HIB Vaccines Aged Out No longer eligi ble based on patient's age to complete this topic HPV Vaccines Aged Out No longer eligi ble based on patient's age to complete this topic Hepatitis A Vaccines Aged Out No long er eligible based on patient's age to complete this topic Hepatitis B Vaccines Aged Out No long er eligible based on patient's age to complete this topic IPV Vaccines Aged Out No longer eligi ble based on patient's age to complete this topic MMR Vaccines Aged Out No longer eligi ble based on patient's age to complete this topic Meningococcal ACWY Vaccine Aged Out N o longer eligible based on patient's age to complete this topic RSV Immunization Patients Under 20 months Aged Out No longer eligible based on patient's age to complete this topic Varicella Vaccines Aged Out No longer eligible based on patient's age to complete this topic Procedures Procedure Name Priority Date/Time Associated Diagnosis Comments RAD ONC MSQ TREATMENT SUMMARY Routine 12/19/2024 9:10 AM EST RAD ONC MSQ TREATMENT SUMMARY Routine 12/18/2024 11:20 AM EST FOLATE Add-On 12/07/2024 6:02 AM EST VITAMIN B12 Add-On 12/07/2024 6:02 AM EST CBC WITH AUTO DIFFERENTIAL Routine 12/07/2024 6:02 AM EST BASIC METABOLIC PANEL Routine 12/07/2024 6:02 AM EST CBC AND DIFFERENTIAL Routine 12/07/2024 6:02 AM EST PEP THERAPY Routine 12/06/2024 8:02 AM EST CBC WITH AUTO DIFFERENTIAL Routine 12/06/2024 6:16 AM EST BASIC METABOLIC PANEL Routine 12/06/2024 6:16 AM EST CBC AND DIFFERENTIAL Routine 12/06/2024 6:16 AM EST PEP THERAPY Routine 12/05/2024 11:41 AM EST TRANSTHORACIC ECHOCARDIOGRAM (TTE) COMPLETE W/ CONTRAST Routine 12/05/2024 11:01 AM EST Peripheral edema MAGNESIUM Routine 12/05/2024 6:19 AM EST BASIC METABOLIC PANEL Routine 12/05/2024 6:19 AM EST CBC WITH AUTO DIFFERENTIAL Routine 12/05/2024 6:18 AM EST CBC AND DIFFERENTIAL Routine 12/05/2024 6:18 AM EST CBC WITH AUTO DIFFERENTIAL Routine 12/04/2024 6:08 AM EST BASIC METABOLIC PANEL Routine 12/04/2024 6:08 AM EST CBC AND DIFFERENTIAL Routine 12/04/2024 6:08 AM EST XR CHEST 1 VIEW Routine 12/03/2024 7:33 PM EST ECG 12-LEAD Routine 12/03/2024 7:00 PM EST CBC WITH AUTO DIFFERENTIAL Routine 12/03/2024 6:52 AM EST BASIC METABOLIC PANEL Routine 12/03/2024 6:52 AM EST CBC AND DIFFERENTIAL Routine 12/03/2024 6:52 AM EST THYROID STIMULATING HORMONE Add-On 12/02/2024 9:18 AM EST LACTATE Routine 12/02/2024 9:18 AM EST PROCALCITONIN Add-On 12/02/2024 9:18 AM EST CBC WITH AUTO DIFFERENTIAL Routine 12/02/2024 6:24 AM EST CBC AND DIFFERENTIAL Routine 12/02/2024 6:24 AM EST BASIC METABOLIC PANEL Routine 12/02/2024 6:23 AM EST LACTATE Routine 12/01/2024 4:05 PM EST CULTURE BLOOD STAT 12/01/2024 4:05 PM EST CULTURE BLOOD STAT 12/01/2024 3:47 PM EST PROTHROMBIN TIME WITH INR Routine 12/01/2024 2:57 PM EST B-TYPE NATRIURETIC PEPTIDE Routine 12/01/2024 2:[address] ANGIO CHEST WO AND/OR W CONTRAST STAT 12/01/2024 11:25 AM EST COVID MANUAL DIFFERENTIAL - SYSMEX WAM STAT 12/01/2024 10:12 AM EST MAGNESIUM Add-On 12/01/2024 10:12 AM EST VITAMIN B12 AND FOLATE Add-On 10:12 AM EST FERRITIN Add-On 12/01/2024 10:12 AM EST IRON AND TIBC Add-On 12/01/2024 10:12 AM EST HEPATIC FUNCTION PANEL Add-On 10:12 AM EST TROPONIN I HIGH SENSITIVITY STAT 12/01/2024 10:12 AM EST CBC WITH AUTO DIFFERENTIAL STAT 12/01/2024 10:12 AM EST BASIC METABOLIC PANEL STAT 12/01/2024 10:12 AM EST CBC AND DIFFERENTIAL STAT 12/01/2024 10:12 AM EST RESPIRATORY VIRUS PANEL MOLECULAR STUDY STAT 12/01/2024 10:06 AM EST ECG 12-LEAD STAT 12/01/2024 9:55 AM EST ECG ANNOTATED 12/01/2024 ECG OUTSIDE 12/01/2024 ECG OUTSIDE 12/01/2024 from Last 3 Months Results * Rad Onc Msq Treatment Summary (12/19/2024 9:10 AM EST) Treatment Site Right Breast MO SAIQ RADIATION ONCOLOGY Course Number 1 MOSAIQ RADIATION ONCOLOGY Prescribed Fractional Dose 267 cGray MOSAIQ RADIATION ONCOLOGY Prescribed Total Dose 4,272 cGray MOSAIQ RADIATION ONCOLOGY Actual Fractions Delivered 2 MOSAIQ RADIATION ONCOLOGY Prescription Pattern Comment no boost MOSAIQ RADIATION ONCOLOGY Actual Session Delivered Dose 267 cGray MOSAIQ RADIATION ONCOLOGY Actual Total Dose 534 cGray MOSAIQ RADIATION ONCOLOGY Prescribed Technique Tangents MOSAIQ RADIATION ONCOLOGY Elapsed Days 1 MOSAIQ RADIATION ONCOLOGY Start Date 12/18/2024 MOSAIQ RADIATION ONCOLOGY Last Date 12/19/2024 MOSAIQ RADIATION ONCOLOGY Prescribed Number of Fractions 16 MOSAIQ RADIATION ONCOLOGY 12/19/2024 9:10 AM EST Physician Radiation Oncology RADIATIO N ONCOLOGY ORDERABLES Performing Organization Address City/[facility]/ZIP Co de Phone Number ELIDA RADIATION ONCOLOGY * Rad Onc Msq Treatment Summary (12/18/2024 11:20 AM EST) Pathologist [facility] Treatment Site Right Breast MO SAIQ RADIATION ONCOLOGY Course Number 1 MOSAIQ RADIATION ONCOLOGY Prescribed Fractional Dose 267 cGray MOSAIQ RADIATION ONCOLOGY Prescribed Total Dose 4,272 cGray MOSAIQ RADIATION ONCOLOGY Actual Fractions Delivered 1 MOSAIQ RADIATION ONCOLOGY Prescription Pattern Comment no boost MOSAIQ RADIATION ONCOLOGY Actual Session Delivered Dose 267 cGray MOSAIQ RADIATION ONCOLOGY Actual Total Dose 267 cGray MOSAIQ RADIATION ONCOLOGY Prescribed Technique Tangents MOSAIQ RADIATION ONCOLOGY Elapsed Days 0 MOSAIQ RADIATION ONCOLOGY Start Date 12/18/2024 MOSAIQ RADIATION ONCOLOGY Last Date 12/18/2024 MOSAIQ RADIATION ONCOLOGY Prescribed Number of Fractions 16 MOSAIQ RADIATION ONCOLOGY 12/18/2024 11:2 0 AM EST Physician Radiation Oncology RADIATIO N ONCOLOGY ORDERABLES Performing Organization Address City/[facility]/ZIP Co de Phone Number [facility] RADIATION ONCOLOGY * (ABNORMAL) CBC auto differential (12/07/2024 6:02 AM EST) Only the most recent of7 resultswithin the time period is included. Pathologist [facility] WBC 15.5(H) 4.8 - 10.8 K/[facility] LAB HEMETOLOGY METHOD 12/07/2024 7:21 AM [facility] RBC 3.30(L) 3.80 - 4.80 /[facility] LAB HEMETOLOGY METHOD 12/07/2024 7:21 AM [facility] Hemoglobin 9.3(L) 11.5 - 16.0 g/dL LAB HEMETOLOGY METHOD 12/07/2024 7:21 AM [facility] Hematocrit 32.0(L) 35.0 - 47.0 % LAB HEMETOLOGY METHOD 12/07/2024 7:21 AM [facility] MCV 97.6 79.0 - 98.0 FL LAB HEMETOLOGY METHOD 12/07/2024 7:21 AM [facility] MCH 28.4 27.0 - 32.0 pcg LAB HEMETOLOGY METHOD 12/07/2024 7:21 AM [facility] MCHC 29.1(L) 32.0 - 37.0 g/dL LAB HEMETOLOGY METHOD 12/07/2024 7:21 AM [facility] RDW 18.9(H) 11.0 - 15.0 % LAB HEMETOLOGY METHOD 12/07/2024 7:21 AM [facility] Platelets 390 130 - 400 K/mcL LAB HEMETOLOGY METHOD 12/07/2024 7:21 AM [facility] MPV 10.0 7.0 - 11.0 FL LAB HEMETOLOGY METHOD 12/07/2024 7:21 AM [facility] NRBC 0.5 <1.0 % LAB HEMETOLOGY METHOD 12/07/2024 7:21 AM [facility] NRBC Absolute 0.07 <0.10 K/mcL LAB HEMETOLOGY METHOD 12/07/2024 7:21 AM [facility] Neutrophils Relative 74.5 % LAB HEMETOLOGY METHOD 12/07/2024 7:21 AM [facility] Lymphocytes Relative 13.6 % LAB HEMETOLOGY METHOD 12/07/2024 7:21 AM [facility] Monocytes Relative 7.6 % LAB HEMETOLOGY METHOD 12/07/2024 7:21 AM [facility] Eosinophils Relative 0.0 % LAB HEMETOLOGY METHOD 12/07/2024 7:21 AM [facility] Basophils Relative 0.4 % LAB HEMETOLOGY METHOD 12/07/2024 7:21 AM [facility] Immature Granulocytes Relative 3.9 % LAB HEMETOLOGY METHOD 12/07/2024 7:21 AM [facility] Neutrophils Absolute 11.53(H) 1.50 - 7.00 K/mcL LAB HEMETOLOGY METHOD 12/07/2024 7:21 AM [facility] Lymphocytes Absolute 2.10 1.00 - 5.00 K/mcL LAB HEMETOLOGY METHOD 12/07/2024 7:21 AM [facility] Monocytes Absolute 1.18(H) 0.20 - 1.00 K/mcL LAB HEMETOLOGY METHOD 12/07/2024 7:21 AM [facility] Eosinophils Absolute 0.00 0.00 - 0.50 K/[facility] LAB HEMETOLOGY METHOD 12/07/2024 7:21 AM [facility] Basophils Absolute 0.06 0.00 - 0.20 K/mcL LAB HEMETOLOGY METHOD 12/07/2024 7:21 AM [facility] Immature Granulocytes Absolute 0.60(H) 0.00 - 0.03 K/mcL LAB HEMETOLOGY METHOD 12/07/2024 7:21 AM [facility] Blood Venous blood specimen / Unknown Venipuncture / Unknown 12/07/2024 6:02 AM EST 12/07/2024 6:51 AM EST [facility] WE[facility]ER LAB BLOOD ORDERABLE S [facility] [address] [place] [address], * Folate (12/07/2024 6:02 AM EST) Folate 13.9 2.8 - 17.0 ng/ml LAB CHEMISTRY METHOD 12/07/2024 9:[address] [facility] Blood Venous blood specimen / Unknown Venipuncture / Unknown 12/07/2024 6:02 AM EST 12/07/2024 6:49 AM EST Nuria Marie MD LAB BLOOD ORDERABLE S Performing Organization Address City/[facility]/ZIP Co de Phone Number [facility] [address] [place] [address], * Vitamin B12 (12/07/2024 6:02 AM EST) [facility] Vitamin B-12 698 250 - 900 pcg/mL LAB CHEMISTRY METHOD 12/07/2024 9:59 AM [facility] Blood Venous blood specimen / Unknown Venipuncture / Unknown 12/07/2024 6:02 AM EST 12/07/2024 6:49 AM EST Nuria Marie MD LAB BLOOD ORDERABLE S Performing Organization Address [facility]/ZIP Co de Phone Number [facility] [address] [place] [address], [place] [phone] * (ABNORMAL) Basic metabolic panel (12/07/2024 6:02 AM EST) Only the most recent of7 resultswithin the time period is included. [facility] Sodium 139 133 - 145 mmol/L LAB CHEMISTRY METHOD 12/07/2024 7:57 AM [facility] Potassium 4.5 3.5 - 5.5 mmol/L LAB CHEMISTRY METHOD 12/07/2024 7:57 AM [facility] Chloride 96 96 - 110 mmol/L LAB CHEMISTRY METHOD 12/07/2024 7:57 AM [facility] CO2 38(H) 21 - 32 mmol/L LAB CHEMISTRY METHOD 12/07/2024 7:57 AM [facility] Anion Gap 5 3 - 11 LAB CHEMISTRY METHOD 12/07/2024 7:57 AM [facility] Glucose 153(H) 70 - 100 mg/dL LAB CHEMISTRY METHOD 12/07/2024 7:57 AM [facility] BUN 31(H) 5 - 25 mg/dL LAB CHEMISTRY METHOD 12/07/2024 7:[address] [facility] Creatinine 1.22(H) 0.50 - 1.10 mg/dL LAB CHEMISTRY METHOD 12/07/2024 7:[address] [facility] eGFR 50(L) >=60 mL/min/1. 73m2 LAB CHEMISTRY METHOD 12/07/2024 7:[address] [facility] Comment:Calculation based on the??Chronic Kidney Disease Epidemiology Collaboration (CKD-EPI) equation refit??without adjustment for race. BUN/Creatinine Ratio 25.4 LAB CHEMISTRY METHOD 12/07/2024 7:57 AM [facility] Calcium 8.7 8.5 - 10.5 mg/dL LAB CHEMISTRY METHOD 12/07/2024 7:57 AM [facility] Blood Venous blood specimen / Unknown Venipuncture / Unknown 12/07/2024 6:02 AM EST 12/07/2024 6:49 AM EST [facility] LAB BLOOD ORDERABLE S [facility] [address] [place] [address], [place] [phone] * TRANSTHORACIC ECHOCARDIOGRAM (TTE) COMPLETE W/ CONTRAST (12/05/2024 11:01 AM EST) Left Atrium Minor [place] 5.6 cm CV PACS Left Atrium Major [place] 5.5 cm CV PACS LA Area Sys (A2C) 22 cm2 CV PACS LA Area Sys (A4C) 18 cm2 CV PACS LA Volume (BP) 57 mL CV PACS Aortic Sinus Valsalva 2.9 cm CV PACS Ascending Aorta 3.2 cm CV PACS LVOT Diameter 2.0 cm CV PACS MV E' Tissue Velocity Lateral 17 cm/s CV PACS MV E' Tissue Velocity Septal 11 cm/s CV PACS LVOT Area 3.1 cm2 CV PACS MV Peak E Harrison 1.25 m/s CV PACS RV S' 12 cm/s CV PACS TAPSE 15 mm CV PACS E/E' Ratio Septal 11 CV PACS E/E' Ratio Averaged 9 CV PACS Ascending Aorta Index 1.57 cm/m2 CV PACS E/E' Ratio Lateral 7 CV PACS LA Volume Index (BP) 28 mL/m2 CV PACS BSA 2.16 m2 CV PACS Est. RA Pressure 3 mmHg CV PACS Anatomical Region Laterality Modality Ultrasound Narrative 12/05/2024 11:31 AM EST ?Left ventricle cavity size is normal. No regional LV wall motion abnormalities noted. Left ventricular systolic function is in the normal range with an ejection fraction of 60-65%. ?Right ventricle cavity is normal. Right ventricular systolic function is normal. ?Mitral??Valve: There is mild-moderate regurgitation. ?Trivial pericardial effusion. Left Ventricle Left ventricle cavity size is normal. Wall thickness is grossly normal. Systolic function is normal with an ejection fraction of 60-65%. There are no regional LV wall motion abnormalities. Unable to assess diastolic function due to underlying atrial fibrillation. Right Ventricle Right ventricle cavity appears normal. Systolic function is normal. Left Atrium Left atrium cavity size is normal. Right Atrium Right atrium cavity is normal. IVC/SVC RA pressures is estimated to be 3 mmHg (IVC diameter <21 mm and decreases >50% during inspiration). Mitral Valve The leaflets are mildly thickened. There is mild? moderate regurgitation. There is no evidence of mitral valve stenosis. Tricuspid Valve The leaflets exhibit normal excursion. There is no regurgitation or stenosis. Aortic Valve The aortic valve was not well visualized. Number of aortic valve cusps cannot be determined. There is no regurgitation or stenosis. Pulmonic Valve Visualized portions of the pulmonic valve appear normal. There is no regurgitation or stenosis. Ascending Aorta The aorta appears normal in size. Pericardium Pericardium appears normal. There is a trivial pericardial effusion. Study Details Overall the study quality was technically difficult. Definity contrast was given to enhance imaging. Giovana WEBBER CV ECHO PROCEDURES * Magnesium (12/05/2024 6:19 AM EST) Only the most recent of2 resultswithin the time period is included. Magnesium 1.9 1.9 - 2.6 mg/dL LAB CHEMISTRY METHOD 12/05/2024 7:[address] [facility] Blood Venous blood specimen / Unknown Venipuncture / Unknown 12/05/2024 6:19 AM EST 12/05/2024 6:59 AM EST Milagro WEBBER LAB BLOOD ORDERABLE S [facility]) [facility] [address] [place] [address], * XR Chest 1 View (12/03/2024 7:33 PM EST) Anatomical Region Laterality Modality Body Radiographic Dahiana ging 12/04/2024 9:28 AM EST Impressions 12/04/2024 9:32 AM EST Impression: 1. Stable right hemidiaphragmatic elevation since 2019. 2. Lungs grossly clear. Telerad AKBAR ([id number]) -------- FINAL REPORT -------- Dictated By: Keiko Dyson Dictated Date: 12/04/2024 09:28 ET Assigned Physician: Keiko Dyson Reviewed and Electronically Signed By: Keiko Dyson Signed Date: 12/04/2024 09:32 ET Workstation ID: [id number] Transcribed By: Self Edit Transcribed Date: 12/04/2024 09:28 ET Narrative 12/04/2024 9:32 AM EST History: Dyspnea. Covid-19 positive. Comparison: No previous chest imaging at this institution. Correlation is made to a CT abdomen/pelvis from 04/01/20 Findings: Portable AP upright chest at 7:30 PM. Right hemidiaphragmatic elevation is similar to the 2020 exam. The cardiac silhouette is mildly enlarged. Hilar contours and pulmonary vascularity are within normal limits. The lungs are grossly clear. No sizable pleural fluid collection is seen. Procedure Note Keiko Dyson MD - 12/04/2024 History: Dyspnea. Covid-19 positive. Comparison: No previous chest imaging at this institution. Correlation ismade to a CT abdomen/pelvis from 04/01/20 Findings: Portable AP upright chest at 7:30 PM. Right hemidiaphragmatic elevation issimilar to the 2019 exam. The cardiac silhouette is mildly enlarged. Hilarcontours and pulmonary vascularity are within normal limits. The lungs aregrossly clear. No sizable pleural fluid collection is seen. IMPRESSION: Impression: 1. Stable right hemidiaphragmatic elevation since 2019. 2. Lungs grossly clear. Cal WEBBER ([id number]) -------- FINAL REPORT -------- Dictated By: Keiko Dyson Dictated Date: 12/04/2024 09:28 ET Assigned Physician: Keiko Dyson Reviewed and Electronically Signed By: Keiko Dyson Signed Date: 12/04/2024 09:32 ET Workstation ID: [id number] Transcribed By: Self Edit Transcribed Date: 12/04/2024 09:28 ET Angelic WEBBER IMG XR PROCEDURES * ECG 12 lead (12/03/2024 7:00 PM EST) Only the most recent of2 resultswithin the time period is included. Ventricular Rate ECG 101 BPM GEMUSE Atrial Rate 125 BPM GEMUSE QRS Duration 142 ms GEMUSE Q-T Interval 390 ms GEMUSE QTc 505 ms GEMUSE R [place] 79 degrees GEMUSE T [place] 33 degrees GEMUSE ECG Interpretation Atrial fibrillation with rapid ventricular response Right bundle branch block Abnormal ECG When compared with ECG of 01-DEC-2024 09:55, No significant change was found Confirmed by FLORENTIN VANEGAS ([id number]) on 12/04/2024 4:35:43 PM GEMUSE 12/03/2024 7:00 PM EST 12/04/2024 4:35 PM EST Raheel WEBBER ECG ORDERABLES GEMUSE * Procalcitonin (12/02/2024 9:18 AM EST) Procalcitonin 0.08 <=0.16 ng/mL LAB CHEMISTRY METHOD 12/02/2024 10:[address] [facility] Blood Venous blood specimen / Unknown Venipuncture / Unknown 12/02/2024 9:18 AM EST 12/02/2024 9:[address] [facility] - 12/02/2024 10:29 AM EST Procalcitonin > 2.00 ng/ml: Procalcitonin Levels above 2.00 ng/ml, on the first day of ICU admission represent a high risk for progression to severe sepsis and/or septic shock. Procalcitonin < 0.50 ng/ml: Procalcitonin levels below 0.50 ng/ml on the first day of ICU admission represent a low risk for progression to severe sepsis and/or septic shock. Concentrations <0.5 ng/mL do not exclude an infection, on account of local ized infections (without systemic signs) which can be associated with such low concentrations, or a systemic infection in its initial stages (<6 hours). Furthermore, increased procalcitonin can occur without infection. PCT concentrations between 0.5 and 2.0 ng/mL should be interpreted taking into account the patient's history. It is recommended to retest PCT within 6-24 hours if any concentrations <2.0 ng/mL are obtained. Raheel WEBBER LAB BLOOD ORDERAB LES [facility] [address] [place] [address], * Thyroid stimulating hormone (12/02/2024 9:18 AM EST) TSH 1.95 0.40 - 4.00 mcIU/mL LAB CHEMISTRY METHOD 12/02/2024 11:[address] [facility] Blood Venous blood specimen / Unknown Venipuncture / Unknown 12/02/2024 9:18 AM EST 12/02/2024 9:44 AM EST [facility] LAB BLOOD ORDERAB LES Performing Organization Address City/[facility]/ZIP Co de Phone Number [facility] [address] [place] [address], * Lactate (12/02/2024 9:18 AM EST) Only the most recent of2 resultswithin the time period is included. [facility] Lactate 1.4 0.4 - 2.0 mmol/L LAB CHEMISTRY METHOD 12/02/2024 10:[address] [facility] Blood Venous blood specimen / Unknown Venipuncture / Unknown 12/02/2024 9:18 AM EST 12/02/2024 9:45 AM [facility] Performing Organization Address [facility] Co de Phone Number [facility] [address] [place] [address], * Culture blood (12/01/2024 4:05 PM EST) Only the most recent of2 resultswithin the time period is included. [facility] Culture, Blood No growth at 5 days 12/06/2024 5:[address] [facility] Blood Venous blood specimen / Unknown Venipuncture / Unknown 12/01/2024 4:05 PM EST 12/01/2024 4:13 PM EST Giovana WEBBER LAB MICROBIOLOGY - G ENERAL ORDERABLES Performing Organization Address City/[facility]/ZIP Co de Phone Number [facility] [address] [place] [address], * (ABNORMAL) Prothrombin time with INR (12/01/2024 2:57 PM EST) [facility] Protime 19.8(H) 10.6 - 13.9 sec LAB COAGULATION METHOD 12/01/2024 3:[address] [facility] INR 1.6 LAB COAGULATION METHOD 12/01/2024 3:[address] [facility] Blood Venous blood specimen / Unknown Venipuncture / Unknown 12/01/2024 2:57 PM EST 12/01/2024 3:02 PM EST Giovana WEBBER LAB BLOOD ORDERABLES Performing Organization Address City/[facility]/ZIP Co de Phone Number [facility] [address] [place] [address], [place] [phone] * (ABNORMAL) B-type natriuretic peptide (12/01/2024 2:57 PM EST) BNP 542(H) <=100 pcg/mL LAB CHEMISTRY METHOD 12/01/2024 3:[address] [facility] Blood Venous blood specimen / Unknown Venipuncture / Unknown 12/01/2024 2:57 PM EST 12/01/2024 3:02 PM EST Giovana WEBBER LAB BLOOD ORDERABLES Performing Organization Address [facility] Co de Phone Number [facility] [address] [place] [address], [place] [phone] * CT Angio Chest wo and/or w Contrast (12/01/2024 11:25 AM EST) Anatomical Region Laterality Modality Body Computed Tomogra phy 12/01/2024 11:5 3 AM EST Impressions 12/01/2024 11:56 AM EST No pulmonary arterial emboli. No acute findings in the chest. -------- FINAL REPORT -------- Dictated By: LICO CALDWELL Dictated Date: 12/01/2024 11:53 ET Assigned Physician: LICO CALDWELL Reviewed and Electronically Signed By: LICO CALDWELL Signed Date: 12/01/2024 11:56 ET Workstation ID: [id number] Transcribed By: Self Edit Transcribed Date: 12/01/2024 11:53 ET Narrative 12/01/2024 11:56 AM EST PROCEDURE: Chest CTA INDICATION: Shortness of breath TECHNIQUE: Chest CTA with intravenous administration of 90cc ISOVUE-370. Multi planar reformats were created and interpreted. The examination was performed utilizing dose reduction techniques.3-D or MIP images were produced with postprocessing on an independent computer workstation. ??Total DLP (96 COMPARISON: ??No priors available. FINDINGS: LUNGS/PLEURA: Bibasilar atelectasis with elevated right diaphragm. ??No pleural effusion or pneumothorax. CTA: No pulmonary arterial emboli. ??Thoracic aorta is normal in size. ??No dissection. ??No significant coronary artery calcifications. ??Exam was not tailored to evaluate the aorta or coronary arteries. MEDIASTINUM: Thyroidectomy. ??No mediastinal or hilar lymphadenopathy. ??Small patulous esophagus. ??Cardiac chambers are normal in size. ??No pericardial effusion. CHEST WALL: Postsurgical changes and seroma noted in the right breast. 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 BONES: No acute fracture. Scattered degenerative changes seen throughout the bones. Procedure Note Lico Caldwell MD - 12/01/2024 PROCEDURE: Chest CTA INDICATION: Shortness of breath TECHNIQUE: Chest CTA with intravenous administration of 90cc ISOVUE-370.Multi planar reformats were created and interpreted. The examination wasperformed utilizing dose reduction techniques.3-D or MIP images wereproduced with postprocessing on an independent computer workstation.Total DLP (96 COMPARISON: No priors available. FINDINGS: LUNGS/PLEURA: Bibasilar atelectasis with elevated right diaphragm. Nopleural effusion or pneumothorax. CTA: No pulmonary arterial emboli. Thoracic aorta is normal in size. Nodissection. No significant coronary artery calcifications. Exam was nottailored to evaluate the aorta or coronary arteries. MEDIASTINUM: Thyroidectomy. No mediastinal or hilar lymphadenopathy.Small patulous esophagus. Cardiac chambers are normal in size. Nopericardial effusion. CHEST WALL: Postsurgical changes and seroma noted in the right breast.3.6 cm mass in the upper inner left breast with internal fat density, mostlikely a hamartoma UPPER ABDOMEN:Hepatic steatosis with hepatomegaly. BONES: No acute fracture. Scattered degenerative changes seen throughoutthe bones. IMPRESSION: No pulmonary arterial emboli. No acute findings in the chest. -------- FINAL REPORT -------- Dictated By: LICO CALDWELL Dictated Date: 12/01/2024 11:53 ET Assigned Physician: LICO CALDWELL Reviewed and Electronically Signed By: LICO CALDWELL Signed Date: 12/01/2024 11:56 ET Workstation ID: [id number] Transcribed By: Self Edit Transcribed Date: 12/01/2024 11:53 ET Ailyn WEBBER IMG CT PROCEDURES * Troponin I high sensitivity (12/01/2024 10:12 AM EST) [facility] High Sensitivity Troponin I 7 <=54 ng/L LAB CHEMISTRY METHOD 12/01/2024 11:[address] [facility] Blood Venous blood specimen / Unknown Venipuncture / Unknown 12/01/2024 10:12 AM EST 12/01/2024 10:[address] [facility] - 12/01/2024 11:03 AM EST High levels of biotin in samples may falsely decrease hsTroponin values. ??Use caution when interpreting hsTroponin results in patients taking biotin who exhibit renal impairment (eGFR <60) or in patients taking more than 20 mg/day of biotin. Josh Carranza MD LAB BLOOD ORDERABLE S [facility] [address] [place] [address], * Vitamin B12 and folate (12/01/2024 10:12 AM EST) [facility] Vitamin B-12 468 250 - 900 pcg/mL LAB CHEMISTRY METHOD 12/01/2024 4:[address] [facility] Folate 10.4 2.8 - 17.0 ng/ml LAB CHEMISTRY METHOD 12/01/2024 4:[address] [facility] Blood Venous blood specimen / Unknown Venipuncture / Unknown 12/01/2024 10:12 AM EST 12/01/2024 10:30 AM EST Giovana WEBBER LAB BLOOD ORDERABLES [facility] [address] [place] [address], * (ABNORMAL) Manual differential (12/01/2024 10:12 AM EST) Neutrophils % 90.0 % LAB HEMETOLOGY METHOD 12/01/2024 11:16 AM [facility] Lymphocytes % 6.0 % LAB HEMETOLOGY METHOD 12/01/2024 11:16 AM [facility] Monocytes % 4.0 % LAB HEMETOLOGY METHOD 12/01/2024 11:16 AM [facility] Eosinophils % 0.0 % LAB HEMETOLOGY METHOD 12/01/2024 11:16 AM [facility] Basophils % 0.0 % LAB HEMETOLOGY METHOD 12/01/2024 11:16 AM [facility] Neutrophils Absolute Manual 20.70(H) 1.50 - 7.00 K/mcL LAB HEMETOLOGY METHOD 12/01/2024 11:16 AM [facility] Lymphocytes Absolute 1.38 1.00 - 5.00 K/mcL LAB HEMETOLOGY METHOD 12/01/2024 11:16 AM [facility] Monocytes Absolute Manual 0.92 0.20 - 1.00 K/mcL LAB HEMETOLOGY METHOD 12/01/2024 11:16 AM [facility] Eosinophils Absolute Manual 0.00 0.00 - 0.50 K/mcL LAB HEMETOLOGY METHOD 12/01/2024 11:16 AM [facility] Basophils Absolute Manual 0.00 0.00 - 0.20 K/mcL LAB HEMETOLOGY METHOD 12/01/2024 11:[address] [facility] Rbc Morphology Present( A) Consistent with indices, Normal for [place] LAB HEMETOLOGY METHOD 12/01/2024 11:[address] [facility] Comment:RBC: Morphology agre es with CBC Platelet Morphology - WAM See Note(A) Normal LAB HEMETOLOGY METHOD 12/01/2024 11:16 AM [facility] Comment:PLT: Normal Polychromasia Present Present( A) (none) LAB HEMETOLOGY METHOD 12/01/2024 11:16 AM [facility] Blood Venous blood specimen / Unknown Venipuncture / Unknown 12/01/2024 10:12 AM EST 12/01/2024 10:30 AM EST Ailyn WEBBER LAB BLOOD ORDERABLES [facility] [address] [place] [address], * (ABNORMAL) Iron and TIBC (12/01/2024 10:12 AM EST) Iron 19(L) 40 - 150 mcg/dL LAB CHEMISTRY METHOD 12/01/2024 2:[address] [facility] TIBC 428 250 - 450 mcg/dL LAB CHEMISTRY METHOD 12/01/2024 2:[address] [facility] Iron Saturation 4(L) 15 - 50 % LAB CHEMISTRY METHOD 12/01/2024 2:[address] [facility] Blood Venous blood specimen / Unknown Venipuncture / Unknown 12/01/2024 10:12 AM EST 12/01/2024 10:30 AM EST Giovana WEBBER LAB BLOOD ORDERABLES Performing Organization Address City/[facility]/ZIP Co de Phone Number [facility] [address] [place] [address], * Ferritin (12/01/2024 10:12 AM EST) Ferritin 31 8 - 252 ng/mL LAB CHEMISTRY METHOD 12/01/2024 3:23 PM [facility] Blood Venous blood specimen / Unknown Venipuncture / Unknown 12/01/2024 10:12 AM EST 12/01/2024 10:30 AM EST Giovana WEBBER LAB BLOOD ORDERABLES Performing Organization Address [facility]/ZIP Co de Phone Number [facility] [address] [place] [address], * Hepatic function panel (12/01/2024 10:12 AM EST) Total Protein 6.5 6.0 - 8.0 g/dL LAB CHEMISTRY METHOD 12/01/2024 2:37 PM [facility] Albumin 3.3 3.2 - 5.0 g/dL LAB CHEMISTRY METHOD 12/01/2024 2:37 PM [facility] Total Bilirubin 0.5 0.0 - 1.4 mg/dL LAB CHEMISTRY METHOD 12/01/2024 2:37 PM [facility] Bilirubin, Direct 0.1 0.0 - 0.3 mg/dL LAB CHEMISTRY METHOD 12/01/2024 2:37 PM [facility] Bilirubin, Indirect 0.4 0.0 - 1.1 mg/dL LAB CHEMISTRY METHOD 12/01/2024 2:37 PM [facility] ALT (SGPT) 21 10 - 60 unit/L LAB CHEMISTRY METHOD 12/01/2024 2:37 PM [facility] AST (SGOT) 12 10 - 42 unit/L LAB CHEMISTRY METHOD 12/01/2024 2:37 PM [facility] Alkaline Phosphatase 68 42 - 121 unit/L LAB CHEMISTRY METHOD 12/01/2024 2:37 PM [facility] Blood Venous blood specimen / Unknown Venipuncture / Unknown 12/01/2024 10:12 AM EST 12/01/2024 10:30 AM EST Giovana WEBBER LAB BLOOD ORDERABLES [facility] [address] [place] [address], * (ABNORMAL) Respiratory virus panel molecular study (12/01/2024 10:06 AM EST) Adenovirus Detection by PCR Not Detected Not Detected LAB MICROBIOLOGY METHOD 12/01/2024 11:43 AM [facility] Influenza A PCR Not Detected Not Detected LAB MICROBIOLOGY METHOD 12/01/2024 11:43 AM [facility] Influenza B PCR Not Detected Not Detected LAB MICROBIOLOGY METHOD 12/01/2024 11:43 AM [facility] Coronavirus 229E Not Detected Not Detected LAB MICROBIOLOGY METHOD 12/01/2024 11:43 AM [facility] Coronavirus HKU1 Not Detected Not Detected LAB MICROBIOLOGY METHOD 12/01/2024 11:43 AM [facility] Coronavirus OC43 Not Detected Not Detected LAB MICROBIOLOGY METHOD 12/01/2024 11:43 AM [facility] Coronavirus NL63 Not Detected Not Detected LAB MICROBIOLOGY METHOD 12/01/2024 11:43 AM [facility] Parainfluenza Virus 1 Not Detected Not Detected LAB MICROBIOLOGY METHOD 12/01/2024 11:43 AM [facility] Parainfluenza Virus 2 Not Detected Not Detected LAB MICROBIOLOGY METHOD 12/01/2024 11:43 AM [facility] Parainfluenza Virus 3 Not Detected Not Detected LAB MICROBIOLOGY METHOD 12/01/2024 11:43 AM [facility] Parainfluenza Virus 4 Not Detected Not Detected LAB MICROBIOLOGY METHOD 12/01/2024 11:43 AM [facility] RSV PCR Not Detected Not Detected LAB MICROBIOLOGY METHOD 12/01/2024 11:43 AM [facility] Human Metapneumovirus A and B Not Detected Not Detected LAB MICROBIOLOGY METHOD 12/01/2024 11:43 AM [facility] Rhinovirus/Entero virus Not Detected Not Detected LAB MICROBIOLOGY METHOD 12/01/2024 11:43 AM [facility] Bordetella pertussis Not Detected Not Detected LAB MICROBIOLOGY METHOD 12/01/2024 11:43 AM [facility] Bordetella parapertussis Not Detected Not Detected LAB MICROBIOLOGY METHOD 12/01/2024 11:43 AM [facility] Mycoplasma pneumo by PCR Not Detected Not Detected LAB MICROBIOLOGY METHOD 12/01/2024 11:43 AM [facility] Chlamydia pneumoniae Not Detected Not Detected LAB MICROBIOLOGY METHOD 12/01/2024 11:43 AM [facility] SARS COV-2 Detected(A ) Not Detected LAB MICROBIOLOGY METHOD 12/01/2024 11:43 AM [facility] Swab Both anterior nares / Unknown Non-blood Collection / Unknown 12/01/2024 10:06 AM EST 12/01/2024 10:13 AM [facility] - 12/01/2024 11:43 AM EST Testing was performed using the [employer] Respiratory Pathogen PCR Assay. All results must be correlated with the clinical findings. Results should not be used as the sole basis for diagnosis. False Negative results may occur from the presence of sequence variants in the region targeted by the assay or the presence of inhibitors. Results may be affected by concurrent antiviral/antimicrobial therapy or levels of organisms that are below the limit of detection. Ailyn WEBBER LAB MICROBIOLOGY - G ENERAL ORDERABLES [facility] [address] [place] [address], [place] [phone] * ECG-Outside (12/01/2024) Only the most recent of2 resultswithin the time period is included. Provider Onbase MD ECG ORDERABLES * ECG-Annotated (12/01/2024) Provider Onbase MD ECG ORDERABLES from Last 3 Months Additional Health Concerns Infection Onset Date Last Indicated COVID-19 12/01/2024 12/01/2024 Advance Directives * Full Code - Confirmed (Latest Code Status on File) Date Activated Date Inactivated Comments 12/01/2024 2:36 PM 12/07/2024 7:06 PM This code stat us was ascertained in the following way: Code status discussion: discussion with patient To update the patient's code status, place a code status order. Do not modify or discontinue any currently active code status orders. * Full Code - Default Date Activated Date Inactivated Comments 12/01/2024 12:53 PM 12/01/2024 2:36 PM This is order is used when code status has not been discussed with the patient, or code status is otherwise unknown/unconfirmed To update the patient's code status, place a code status order. Do not modify or discontinue any currently active code status orders. Care Teams Vessel Liner Relationship Specialty Start Date End Date Amita Ruiz MD [address] [place] [address] PCP - General Internal Medicine 10/13/24
--- OUTSIDE RECORDS SUMMARY | 2024-12-19 13:37 | XMS_ITS | Encounter Summary ---
Author Organization [facility] Address [address] [place] [address] Care Team Providers Care Cleater Name Role Phone Amita Ruiz MD Primary Care Provider [phone] Encounter Details Date Type Department Care Team (Late Contact Info) Description 12/18/2024 10:53 AM EST Hospital Encounter [facility] Radiation Oncology [address] [phone] Social History Tobacco Use Types Packs/Day Years [...] Info) Description 12/20/2024 9:00 AM EST Appointment [facility] Radiation Oncology [address] [phone] 12/21/2024 9:00 AM EST Appointment [facility] Radiation Oncology [address] [phone] 12/22/2024 9:00 AM EST Appointment [facility] Radiation Oncology [address] [phone] 12/22/2024 9:10 AM EST Appointment [facility] Radiation Oncology [address] [place] [phone] Radha Bourgeois MD [address] [place] [address] 12/25/2024 9:00 AM EST Appointment [facility] Radiation Oncology [address] [place] [phone] 12/26/2024 9:00 AM EST Appointment [facility] Radiation Oncology [address] [place] [phone] 12/27/2024 9:00 AM EST Appointment [facility] Radiation Oncology [address] [place] [phone] 12/28/2024 9:00 AM EST Appointment [facility] Radiation Oncology [address] [place] [phone] 12/29/2024 9:00 AM EST Appointment [facility] Radiation Oncology [address] [place] [phone] 12/29/2024 9:10 AM EST Appointment [facility] Radiation Oncology [address] [place] [phone] Radha Bourgeois MD [address] [place] [phone] 01/01/2025 9:00 AM EST Appointment [facility] Radiation Oncology [address] [place] [phone] 01/02/2025 9:00 AM EST Appointment [facility] Radiation Oncology [address] [place] [phone] 01/03/2025 9:00 AM EST Appointment [facility] Radiation Oncology [address] [place] [phone] 01/04/2025 9:00 AM EST Appointment [facility] Radiation Oncology [address] [place] [phone] 01/05/2025 9:00 AM EST Appointment [facility] Radiation Oncology [address] [phone] 01/05/2025 9:10 AM EST Appointment [facility] Radiation Oncology [address] [phone] Radha Bourgeois MD [address] [place], [place] [phone] 01/08/2025 9:00 AM EST Appointment [facility] Radiation Oncology [address] [phone] documented as of this encounter Procedures Procedure Name Priority Date/Time Associated Diagnosis Comments RAD ONC MSQ TREATMENT SUMMARY Routine 12/18/2024 11:20 AM EST documented in this encounter Results * Rad Onc Msq Treatment Summary (12/18/2024 11:20 AM EST) Treatment Site Right Breast MO [...] 11:2 0 AM EST Physician Radiation Oncology MD HAQUE N ONCOLOGY ORDERABLES MOS[facility]Q RADIATION ONCOLOGY documented in this encounter Visit Diagnoses Not on filedocumented in this encounter Additional Health Concerns Infection Onset Date Last Indicated Resolved Time COVID-19 12/01/2024 12/01/2024 documented as of this encounter Care Teams Cleater Relationship Specialty Start Date End Date Amita Ruiz MD [address] [place] [phone] PCP - General Internal Medicine 10/13/24 documented as of this encounter
--- OUTSIDE RECORDS SUMMARY | 2024-12-19 13:37 | XMS_ITS | Encounter Summary ---
Author Organization [facility] Address [address] [place] [address] Care Team Providers Care Manager Casino Name Role Phone Amita Ruiz MD Primary Care Provider [phone] Encounter Details Date Type Department Care Team (Late Contact Info) Description 12/19/2024 8:52 AM EST Hospital Encounter [facility] Radiation Oncology [address] [phone] Social History Tobacco Use Types Packs/Day Years [...] Info) Description 12/20/2024 9:00 AM EST Appointment [facility] Radiation Oncology [address] [phone] 12/21/2024 9:00 AM EST Appointment [facility] Radiation Oncology [address] [phone] 12/22/2024 9:00 AM EST Appointment [facility] Radiation Oncology [address] [phone] 12/22/2024 9:10 AM EST Appointment [facility] Radiation Oncology [address] [place] [phone] Radha Bourgeois MD [address] [place] [address] 12/25/2024 9:00 AM EST Appointment [facility] Radiation Oncology [address] [place] [phone] 12/26/2024 9:00 AM EST Appointment [facility] Radiation Oncology [address] [place] [phone] 12/27/2024 9:00 AM EST Appointment [facility] Radiation Oncology [address] [place] [phone] 12/28/2024 9:00 AM EST Appointment [facility] Radiation Oncology [address] [place] [phone] 12/29/2024 9:00 AM EST Appointment [facility] Radiation Oncology [address] [place] [phone] 12/29/2024 9:10 AM EST Appointment [facility] Radiation Oncology [address] [place] [phone] Radha Bourgeois MD [address] [place] [phone] 01/01/2025 9:00 AM EST Appointment [facility] Radiation Oncology [address] [place] [phone] 01/02/2025 9:00 AM EST Appointment [facility] Radiation Oncology [address] [place] [phone] 01/03/2025 9:00 AM EST Appointment [facility] Radiation Oncology [address] [place] [phone] 01/04/2025 9:00 AM EST Appointment [facility] Radiation Oncology [address] [place] [phone] 01/05/2025 9:00 AM EST Appointment [facility] Radiation Oncology [address] [phone] 01/05/2025 9:10 AM EST Appointment [facility] Radiation Oncology [address] [phone] Radha Bourgeois MD [address] [place], [place] [phone] 01/08/2025 9:00 AM EST Appointment [facility] Radiation Oncology [address] [phone] documented as of this encounter Procedures Procedure Name Priority Date/Time Associated Diagnosis Comments RAD ONC MSQ TREATMENT SUMMARY Routine 12/19/2024 9:10 AM EST documented in this encounter Results [...] 12/19/2024 9:10 AM EST Physician Radiation Oncology MD HAQUE N ONCOLOGY ORDERABLES MOSAIQ RADIATION ONCOLOGY documented in this encounter Visit Diagnoses Not on filedocumented in this encounter Additional Health Concerns Infection Onset Date Last Indicated Resolved Time COVID-19 12/01/2024 12/01/2024 documented as of this encounter Care Teams Manager Casino Relationship Specialty Start Date End Date Amita Ruiz MD [address] [place] [phone] PCP - General Internal Medicine 10/13/24 documented as of this encounter
--- OUTSIDE RECORDS SUMMARY | 2024-12-19 13:38 | XMS_ITS | Encounter Summary ---
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 Operator Name Role Phone Amita Ruiz MD Primary Care Provider [phone] Encounter Details Date Type Department Care Team (Latest Contact Info) Description 12/01/2024 11:09 AM EST - 12/01/2024 11:59 PM [facility] Hospital Encounter [facility] Radiation Oncology [address] [phone] Discharge Disposition: Home or Self Care Social History Tobacco Use Types Packs/Day Years [...] on file documented as of this encounter Medications at Time of Discharge Medication Sig Dispensed Refills Start Date End Date amiodarone (PACERONE) 200 mg tablet Take by mouth 1 (one) time each day. cholecalciferol (VITAMIN D-3) 50 mcg (2,000 unit) tablet Take 1 tablet (2,000 Units total) by mouth 1 (one) time each day. dexAMETHasone (DECADRON) 1 mg tablet Take 6 tablets (6 mg total) by mouth 1 (one) time each day for 4 days. 24 each 12/07/2024 dilTIAZem CD (CARDIZEM CD) 120 mg 24 hr capsule Take 1 capsule (120 mg total) by mouth 1 (one) time each day. 30 each 12/08/2024 01/07/2025 ferrous sulfate 325 mg (65 mg iron) EC tablet Take 1 tablet (325 mg total) by mouth 2 (two) times a day. Do not crush, chew, or split. furosemide (LASIX) 40 mg tablet Take 1 tablet (40 mg total) by mouth 1 (one) time each day. 30 each 12/07/2024 01/06/2025 letrozole (FEMARA) 2.5 mg tablet Take 1 tablet (2.5 mg total) by mouth 1 (one) time each day Take with or without food. levothyroxine (SYNTHROID, LEVOTHROID) 125 mcg tablet Take 2 tablets (250 mcg total) by mouth 1 (one) time each day before breakfast. metoprolol tartrate (LOPRESSOR) 100 mg tablet Take 1 tablet (100 mg total) by mouth 2 (two) times a day. 60 each 12/07/2024 01/06/2025 omeprazole (PriLOSEC) [address] capsule Take 1 capsule (20 mg total) by mouth 1 (one) time if needed. Do not crush or chew. rivaroxaban (XARELTO) 20 mg tablet Take 1 tablet (20 mg total) by mouth 1 (one) time each day with dinner. Take with food. furosemide (LASIX) 40 mg tablet Take 0.5 tablets (20 mg total) by mouth 1 (one) time each day. 12/07/2024 metoprolol succinate (TOPROL-XL) 100 mg 24 hr tablet Take 1 tablet (100 mg total) by mouth 1 (one) time each day. Do not crush or chew. 12/07/2024 olmesartan-hydroCHLOROth iazide (BENICAR HCT) 40-25 mg per tablet Take 1 tablet by mouth 1 (one) time each day. 12/07/2024 documented as of this encounter Discharge Disposition Disposition Code Departure Means Destination Home or Self Care documented in this encounter Plan of Treatment Upcoming Encounters Date Type Department Care Team (Late st Contact Info) Description 12/20/2024 9:00 AM EST Appointment [facility] Radiation Oncology [address] [place] [phone] 12/21/2024 9:00 AM EST Appointment [facility] Radiation Oncology [address] [place] [phone] 12/22/2024 9:00 AM EST Appointment [facility] Radiation Oncology [address] [place] [phone] 12/22/2024 9:10 AM EST Appointment [facility] Radiation Oncology [address] [place] [phone] Radha Bourgeois MD [address] [place] [address] 12/25/2024 9:00 AM EST Appointment [facility] Radiation Oncology [address] [place] [phone] 12/26/2024 9:00 AM EST Appointment [facility] Radiation Oncology [address] [place] [phone] 12/27/2024 9:00 AM EST Appointment [facility] Radiation Oncology [address] [place] [phone] 12/28/2024 9:00 AM EST Appointment [facility] Radiation Oncology [address] [place] [phone] 12/29/2024 9:00 AM EST Appointment [facility] Radiation Oncology [address] [place] [phone] 12/29/2024 9:10 AM EST Appointment [facility] Radiation Oncology [address] [place] [phone] Radha Bourgeois MD [address] [place] [address] 01/01/2025 9:00 AM EST Appointment [facility] Radiation Oncology [address] [place] [phone] 01/02/2025 9:00 AM EST Appointment [facility] Radiation Oncology [address] [place] [phone] 01/03/2025 9:00 AM EST Appointment [facility] Radiation Oncology [address] [phone] 01/04/2025 9:00 AM EST Appointment [facility] Radiation Oncology [address] [phone] 01/05/2025 9:00 AM EST Appointment [facility] Radiation Oncology [address] [place] [phone] 01/05/2025 9:10 AM EST Appointment [facility] Radiation Oncology [address] [place] [phone] Radha Bourgeois MD [address] [place] [address] 01/08/2025 9:00 AM EST Appointment [facility] Radiation Oncology [address] [place] [phone] documented as of this encounter Visit Diagnoses Not on filedocumented in this encounter Additional Health Concerns Infection Onset Date Last Indicated Resolved Time Respiratory Rule-Out 12/01/2024 12/01/2024 025 11:43 AM EST COVID-19 Rule-Out 12/01/2024 12/01/2024 12/01/2024 11:43 AM EST COVID-19 12/01/2024 12/01/2024 documented as of this encounter Care Teams Lithographic Press Operator Relationship Specialty Start Date End Date Amita Ruiz MD [address] [facility] [place] [phone] PCP - General Internal Medicine 10/13/24 documented as of this encounter
--- OUTSIDE RECORDS SUMMARY | 2024-12-19 13:38 | XMS_ITS | Encounter Summary ---
Author Organization [facility] Address [address] [place] [address] Care Team Providers Care Healthcare Representative Name Role Phone Amita Ruiz MD Primary Care Provider [phone] Reason for Visit * Reason Comments Cough Chest Pain * Auth/Cert (Routine) Specialty Diagnoses / Procedures Referred By Contac t Referred To Contact Diagnoses COVID-19 Acute hypoxemic respiratory failure due to COVID-19 ([facility]) Procedures [facility] IP/OBS CARE INITIAL MODERATE LEVEL PER DAY . Fermin Ibanez MD [address] [place] [address] [facility] Emergency [address] [place] [address] Referral ID Status Reason Start Date Expiration Date Visits Re quested Visits Authorized [id number] 1 1 Encounter Details Date Type Department Care Team (Latest Contact Info) Description 12/01/2024 9:30 AM EST - 12/07/2024 4:56 PM [facility] Hospital Encounter [facility] [address] [place] [phone] Josh Carranza MD [address] [address] Fermin Ibanez MD [address] [place] [address] Neftaly Gabriel MD [address] [place] [address] Nuria Marie MD [address] [place] [phone] COVID (Primary Dx); Peripheral edema Discharge Disposition: Home-Health Care Svc Social History Tobacco Use Types Packs/Day Years [...] on file documented as of this encounter Last Filed Vital Signs Vital Sign Reading [...] Mass Index 48.6 12/05/2024 11:01 AM EST documented in this encounter Discharge Summaries * AKBAR Graham - 12/07/2024 9:33 AM EST Date of admission 12/01/2024 Date of discharge 12/07/2024 Discharge Final Diagnosis: COVID-19 Atrial fibrillation w/ RVR Acute on chronic HfpEF Hospital Course: From HPI: Mrs. Rasheed is a 64-year-old female with PMH iron deficiency anemia, thyroid cancer status post thyroidectomy, breast cancer with plans for radiation on the , fibrillation on Xarelto, peripheral edema on Lasix amongst others seen today for complaint of shortness of breath and cough. Patient reports that for the last few days she has been more short of breath and has been experiencin g a dry cough. She does feel like she has some chest congestion. She denies any headaches, fevers or chills, chest pain, vomiting, abdominal pain, diarrhea, increase in her baseline leg swelling. Calin report that she has had some nausea and decreased appetite. She does report that her sister was sick with the flu on and she had been around her during that time. She presented to urgent care earlier today as she was coughing all throughout the night and they swabbed her and noted she was positive for COVID. Since her O2 sat was 89% at urgent care and was tachycardic so she was referred to the ED. She does not smoke drink or use drugs. She does not have a history of asthma or COPD. Vitals are as follows: Temperature of 37.5, pulse of 106, respirate of 20, blood pressure of 130/58and pulse ox of 99% on room air, subsequent was 87% and she was placed on 2 L nasal cannula sattingat 94%. Labs are notable for creatinine of 1.25, BUN of 17, troponin of 7, white blood cell count of 23, hemoglobin of 10.0, hematocrit of 33.3, COVID-positive test. CT angio of the chest with and without showed no pulmonary arterial emboli with no acute findings in the chest. EKG was atrial fibrillation with RVR with rate of 111 bpm. Patient was given 1 L of normal saline in the ED. Patient be transferred to the care of [place] staff for further management of their acute hypoxic respiratory failure, COVID-19 infection, LORI. Acute respiratory failure with hypoxia COVID-19 infection: Blood cultures were negative. Respiratory viral panel positive for SARS-CoV-2. CTA was negative for PE or any other acute findings in the chest. She was treated with remdesivir which she completed 12/05 as well as dexamethasone. She has improved clinically. She underwent home oxygen evaluation and is requiring 1 L with exertion only. She is stable for discharge home today. Will continue dexamethasone 6 mg daily for another 4 days to complete a total of 10-day course of treatment. Follow-up with PCP recommended within 1-2 weeks. Bilateral lower extremity edema Elevated BNP Chronic unspecified CHF: BNP 542. Echocardiogram shows EF 60 to 65% with mild to moderate MR, trivial pericardial effusion. RV systolic function normal. She was diuresed with IV Lasix. She has improved clinically. Upon discharge continue Lasix 40 mg daily. Low-salt diet, daily weight monitoring. Follow-up with primary tennis racket repairer outpatient. Recommend KEVIN stockings daily, remove at bedtime. LORI: Creatinine was 1.25 on arrival. It ultimately up trended to 1.40 on 12/06 and is now improving to 1.22 on 12/07. She was diuresed with IV Lasix. Upon discharge recommend continuation of Lasix 40 mg daily. Will need repeat BMP in the outpatient setting within the next week. Breast cancer: Due to begin radiation on the . Follow-up with outpatient providers. Chronic atrial fibrillation, with acute RVR Secondary hypercoagulable state: Heart rates up to 130s. Cardiology was ultimately consulted and diltiazem was added. Heart rates well-controlled after the addition of diltiazem. She will continue chronic amiodarone 200 mg daily, chronic Xarelto, metoprolol tartrate 100 mg twice daily and [id number] mg daily. Follow-up with primary tennis racket repairer outpatient. Epistaxis had mild intermittent epistaxis in the setting of oxygen use. H&H remains stable 9.3/32.0. Thyroid cancer status post thyroidectomy: Continue levothyroxine Outpatient Follow-Up Care: Future Appointments Date Time Provider Department Center 12/11/2024 11:30 AM [facility] RADIATION TREATMENT [facility] 12/11/2024 11:45 AM Vinay Lorenzo [facility] 12/12/2024 9:00 AM [facility] RAD[facility]RE[facility] 12/13/2024 9:00 AM [facility] RAD[facility] TREAT[facility] 12/14/2024 9:00 AM [facility] RAD[facility]RE[facility] 12/15/2024 9:00 AM [facility] RAD[facility]REAT[facility] 12/15/2024 9:10 AM Radha Bourgeois MD [facility] 12/18/2024 9:00 AM [facility] RAD[facility]RE[facility] 12/19/2024 9:00 AM [facility]RE[facility] 12/20/2024 9:00 AM [facility] 12/21/2024 9:00 AM [facility] 12/22/2024 9:00 AM [facility] 12/22/2024 9:10 AM Radha Bourgeois MD [facility] 12/25/2024 9:00 AM [facility] 12/26/2024 9:00 AM [facility] 12/27/2024 9:00 AM [facility] 12/28/2024 9:00 AM [facility] 12/29/2024 9:00 AM [facility] 12/29/2024 9:10 AM Radha Bourgeois MD [facility] 01/01/2025 9:00 AM [facility] 01/01/2025 9:10 AM [facility] Bourgeois [facility] Discharge Medication List: Your medication list START taking these medications Instructions Last Dose Given Next Dose Due dexAMETHasone 1 mg tablet Commonly known as: DECADRON Take 6 tablets (6 mg total) by mouth 1 (one) time each day for 4 days. dilTIAZem CD 120 mg 24 hr capsule Commonly known as: CARDIZEM CD Start taking on: December 08, 2024 Take 1 capsule (120 mg total) by mouth 1 (one) time each day. metoprolol tartrate 100 mg tablet Commonly known as: LOPRESSOR Take 1 tablet (100 mg total) by mouth 2 (two) times a day. CHANGE how you take these medications Instructions Last Dose Given Next Dose Due furosemide 40 mg tablet Commonly known as: LASIX What changed: how much to take Take 1 tablet (40 mg total) by mouth 1 (one) time each day. CONTINUE taking these medications Instructions Last Dose Given Next Dose Due amiodarone 200 mg tablet Commonly known as: PACERONE Take by mouth 1 (one) time each day. cholecalciferol 50 mcg (2,000 unit) tablet Commonly known as: VITAMIN D-3 Take 1 tablet (2,000 Units total) by mouth 1 (one) time each day. ferrous sulfate 325 mg (65 mg iron) EC tablet Take 1 tablet (325 mg total) by mouth 2 (two) times a day. Do not crush, chew, or split. letrozole 2.5 mg tablet Commonly known as: FEMARA Take 1 tablet (2.5 mg total) by mouth 1 (one) time each day Take with or without food. levothyroxine 125 mcg tablet Commonly known as: SYNTHROID, LEVOTHROID Take 2 tablets (250 mcg total) by mouth 1 (one) time each day before breakfast. omeprazole [address] capsule Commonly known as: PriLOSEC Take 1 capsule (20 mg total) by mouth 1 (one) time if needed. Do not crush or chew. rivaroxaban 20 mg tablet Commonly known as: XARELTO Take 1 tablet (20 mg total) by mouth 1 (one) time each day with dinner. Take with food. STOP taking these medications metoprolol succinate 100 mg 24 hr tablet Commonly known as: TOPROL-XL olmesartan-hydroCHLOROthiazide 40-25 mg per tablet Commonly known as: BENICAR HCT Where to Get Your Medications These medications were sent to [facility]/pharmacy #[id number] - [place] - [address] [place] [address] Hours: 24-hours dexAMETHasone 1 mg tablet dilTIAZem CD 120 mg 24 hr capsule furosemide 40 mg tablet metoprolol tartrate 100 mg tablet Patient Condition and Disposition at Time of Discharge: Patient was seen and examined this morning at bedside Having mild shortness of breath with exertion but denies any shortness of breath at rest Has ongoing cough with some phlegm production Denies abdominal pain, nausea, vomiting, chest pain, dizziness or palpitations Vitals: 12/07/24 1225 BP: 130/73 Pulse: 98 Resp: 16 Temp: 36.3 ??C (97.4 ??F) SpO2: 94% Physical Exam General Exam: Age-appropriate female, awake, calm, cooperative, laying in the recliner at bedside in no acute distress. Skin Exam: Warm, dry and intact without diaphoresis. No rash noted HEENT exam: Head appears atraumatic. No scleral icterus. Respiratory Exam: Diminished but otherwise clear to auscultation bilaterally. Cardiovascular Exam: Regular rate and irregularly irregular rhythm Gastrointestinal Exam: Abdomen is soft, nontender, and nondistended. BS appreciated Musculoskeletal Exam: Trace bilateral lower extremity edema is appreciated. Neurological Exam: Alert and oriented x 3. Discharge Instructions: Discharge Procedure Orders Oxygen therapy Order Comments: Height: 1.55 m (61.02 ) Weight: 109 kg (239 lb 13.8 oz) Order Specific Question Answer Comments Oxygen Reason/Medical Necessity Other - See Comments Wear Oxygen With Activity Oxygen Equipment Oxygen Concentrator (HCPCS Code: E1390) Oxygen Equipment Nasal Cannula (HCPCS Code: A4615) Oxygen Equipment Portable Gas (HCPCS Code: E0431) Oxygen Equipment Tubing (HCPCS Code: A4616) Oxygen Equipment Other - See Further DME Specifications At Rest (# of l/min): 0 With Ambulation (# of l/min): 1 Reassessment in 1 month Face to face evaluation was performed on 12/06/2024 Total time spent performing chart review, assessing the patient, documenting, discussing with attending MD/bedside RN/ICC, updating family, arranging care and performing a high level of medical decision making approximately [address] Marie documented in this encounter Discharge Instructions * Discharge Instructions* AKBAR Graham - 12/07/2024 1:32 PM EST Stop Taking olmesartan/hydrochlorothiazide and metoprolol succinate Take diltiazem 120 mg daily and metoprolol tartrate 100 mg twice daily Dexamethasone 6 mg daily for another 4 days Continue with Lasix 40 mg once daily Follow-up with your primary tennis racket repairer closely outpatient Monitor your weight daily. Notify your tennis racket repairer if you gain 3 pounds in 1 day or 5 pounds in 1 week Follow a low-salt diet Follow-up with primary care within 1-2 weeks upon discharge Return to the ED with any new or worsening symptoms. documented in this encounter Medications at Time of Discharge Medication Sig Dispensed Refills Start Date End Date amiodarone (PACERONE) 200 mg tablet Take by mouth 1 (one) time each day. cholecalciferol (VITAMIN D-3) 50 mcg (2,000 unit) tablet Take 1 tablet (2,000 Units total) by mouth 1 (one) time each day. dilTIAZem CD (CARDIZEM CD) 120 mg 24 [...] times a day. 60 each 12/07/2024 01/06/2025 rivaroxaban (XARELTO) 20 mg tablet Take 1 tablet (20 mg total) by mouth 1 (one) time each day with dinner. Take with food. dexAMETHasone (DECADRON) 1 mg tablet Take 6 tablets (6 mg total) by mouth 1 (one) time each day for 4 days. 24 each 12/07/2024 omeprazole (PriLOSEC) [address] capsule Take 1 capsule (20 mg total) by mouth 1 (one) time if needed. Do not crush or chew. documented as of this encounter Ordered Prescriptions Prescription Sig Dispensed Refills Start Date End Da te metoprolol tartrate (LOPRESSOR) 100 mg tablet Take 1 tablet (100 mg total) by mouth 2 (two) times a day. 60 each 12/07/2024 01/06/2025 dilTIAZem CD (CARDIZEM CD) 120 mg 24 hr capsule Take 1 capsule (120 mg total) by mouth 1 (one) time each day. 30 each 12/08/2024 01/07/2025 dexAMETHasone (DECADRON) 1 mg tablet Take 6 tablets (6 mg total) by mouth 1 (one) time each day for 4 days. 24 each 12/07/2024 furosemide (LASIX) 40 mg tablet Take 1 tablet (40 mg total) by mouth 1 (one) time each day. 30 each 12/07/2024 01/06/2025 documented in this encounter Discharge Disposition Disposition Code Departure Means Destination Home-Health Care Svc documented in this encounter Progress Notes * Heather Lopez RN - 12/07/2024 3:33 PM EST 12/07/24 1533 Transportation Transportation at discharge Family What day is the transport expected? 12/07/24 Final Discharge Disposition Home Health Care Services Patient discharging home with [place] [facility]> ICC spoke with Kathie. All required paperwork forwarded via fax. Also discharging home with Oxygen via [facility] per patient choice * Heather Lopez RN - 12/06/2024 3:10 PM EST CM Progress Note ELDON: 12/07 Barriers: Cardiology input, diuresing Plan: HOME HEALTH-Home with [place] [facility] and Home O2. O2 tank has already been delivered. * Brooke Owens - 12/06/2024 11:29 AM EST 12/06/24 1128 Qualify for Home O2 On at rest Room air SpO2 at rest 92 % On with exertion Room air SpO2 w/ exertion 87 % Amount of exertion time walked 6 Minutes Patient mobile at home? Yes Pt requires 1 liter with ambulation, spo2 94% with 1 Liter. * AKBAR Graham - 12/06/2024 8:00 AM EST Subjective Patient was seen and examined this morning at bedside. She reports some improvement in her lower extremity swelling. Has ongoing cough with some phlegm Denies SOB at rest but is still having SOB with exertion. Went for walk yesterday but had to stop as she desaturated to mid 80s. Denies CP, abdominal pain, nausea, vomiting or diarrhea Denies dizziness or palpitations Objective Physical Exam General Exam: Age-appropriate female, awake, calm, cooperative, laying in the recliner at bedside in no acute distress. Skin Exam: Warm, dry and intact without diaphoresis. No rash noted HEENT exam: Head appears atraumatic. No scleral icterus. Respiratory Exam: Trace crackles at the bilateral bases. O2 in place. Appears SOB at rest intermittently. Cardiovascular Exam: Borderline tachycardic rate and irregularly irregular rhythm Gastrointestinal Exam: Abdomen is soft, nontender, and nondistended. BS appreciated Musculoskeletal Exam: 1+ pitting bilateral lower extremity edema is appreciated. Neurological Exam: Alert and oriented x 3. Last Recorded Vitals: Blood pressure 120/89, pulse 62, temperature 36.1 ??C (97 ??F), temperature source Temporal, resp. rate 18, height 1.55 m (61.02 ), weight 109 kg (239 lb 13.8 oz), SpO2 92%. Medications: amiodarone, 200 mg, oral, Daily dexAMETHasone, 6 mg, intravenous, Daily ferrous sulfate, 325 mg, oral, BID furosemide, 20 mg, intravenous, BID 08-15 letrozole, 2.5 mg, oral, Daily levothyroxine, 125 mcg, oral, q AM AC [Held by provider] losartan 100 mg, hydroCHLOROthiazide 25 mg (for BENICAR HCT), , oral, Daily metoprolol tartrate, 100 mg, oral, BID pantoprazole, 40 mg, oral, q AM AC remdesivir, 100 mg, intravenous, q24h rivaroxaban, 20 mg, oral, Daily with dinner sodium chloride, 30 mL, intravenous, Once PRN medications: acetaminophen, benzonatate, guaiFENesin, metoprolol tartrate, traZODone Lab Results Component Value Date WBC 16.7 (H) 12/05/2024 HGB 9.2 (L) 12/05/2024 HCT 31.7 (L) 12/05/2024 MCV 97.5 12/05/2024 PLT 340 12/05/2024 Lab Results Component Value Date GLUCOSE 139 (H) 12/05/2024 CALCIUM 7.9 (L) 12/05/2024 NA 139 12/05/2024 K 4.8 12/05/2024 CO2 41 (HH) 12/05/2024 CL 96 12/05/2024 BUN 32 (H) 12/05/2024 CREATININE 1.35 (H) 12/05/2024 Transthoracic echocardiogram (TTE) complete with PRN contrast, bubble, strain, and 3D order panel Final Result XR Chest 1 View Final Result Impression: 1. Stable right hemidiaphragmatic elevation since 2019. 2. Lungs grossly clear. [place] PA ([id number]) -------- FINAL REPORT -------- Dictated By: Keiko Dyson Dictated Date: 12/04/2024 09:28 ET Assigned Physician: Keiko Dyson Reviewed and Electronically Signed By: Keiko Dyson Signed Date: 12/04/2024 09:32 ET Workstation ID: [id number] Transcribed By: Self Edit Transcribed Date: 12/04/2024 09:[address] Angio Chest wo and/or w Contrast Final Result No pulmonary arterial emboli. No acute findings in the chest. -------- FINAL REPORT -------- Dictated By: LICO CALDWELL Dictated Date: 12/01/2024 11:53 ET Assigned Physician: LICO CALDWELL Reviewed and Electronically Signed By: LICO CALDWELL Signed Date: 12/01/2024 11:56 ET Workstation ID: [id number] Transcribed By: Self Edit Transcribed Date: 12/01/2024 11:53 ET Assessment/Plan This is a 64-year-old female with a past medical history including but not limited to LOKI, thyroid cancer status post thyroidectomy, breast cancer with plans for upcoming radiation, atrial fibrillation on Xarelto who presented to the ED from urgent care due to shortness of breath with exertion. Shewas noted to be hypoxic 87% on room air requiring O2 supplementation. Lab workup showed leukocytosis, elevated BNP 542. EKG showed A-fib with RVR, 111 bpm. She tested positive for COVID-19. She was admitted to the medical service for further management. Acute respiratory failure with hypoxia COVID-19 infection BC x 2 negative Respiratory viral panel positive for SARS-CoV-2 CTA showed no PE, no acute findings. Completed remdesivir 12/05 --Continue dexamethasone 6 mg IV daily --PRN guaifenesin --PRN tylenol --Isolation precautions --Wean O2 as tolerated --Home O2 eval --Flutter --IS Bilateral lower extremity edema Elevated BNP Chronic unspecified CHF BNP 542 Echocardiogram shows EF 60 to 65% with mild to moderate MR, trivial pericardial effusion. RV systolic function normal Creatinine slightly trending up to 1.35 today on 12/05 as discussed below however clinically continues to appear volume overloaded with pitting edema and crackles --Received lasix 20 mg IV this AM. Hold further lasix for now per cards rec. LORI ? Due to volume overload Creatinine 1.25 on arrival, initially improved to 1.05 on 12/02 and then began uptrending Patient states she was taking 60 mg p.o. Lasix at home. Here has been receiving 20 mg daily and hasnot had much diuresis- still looks volume overloaded- changed to IV lasix 12/04 Creatinine uptrending to 1.40 from 1.35 on 12/06 --Hold further lasix per cardiology rec --Diamox 250 mg IV x 1 dose --Renally adjust medication as necessary --BMP in a.m. Breast cancer Due to begin radiation on the --Outpatient follow-up Chronic atrial fibrillation Secondary hypercoagulable state Current RVR Remains tachycardic, heart rates low 100s to 120s. --Cardiology consulted, appreciate input --Start diltiazem 120 mg daily --Continue metoprolol tartrate 100 mg twice daily --Continue amiodarone 200 mg daily --Continue Xarelto --Monitor response to addition of dilt on tele Epistaxis Having mild intermittent epistaxis H&H remains stable 9.4/32.9 on 12/06 Denies epistaxis at home. Attributes to oxygen use --Humidify O2 and wean as able --CBC daily Thyroid cancer status post thyroidectomy -- Continue levothyroxine CODE STATUS: Full code DVT prophylaxis: Xarelto Emergency contact is the patient's spouse, Robret, . Total time spent performing chart review, assessing the patient, documenting, discussing with attending MD/bedside RN/ICC, arranging care and performing a high level of medical decision making approximately 40 minutes. Case discussed with Dr. Gabriel. Disposition: Hopefully discharge in 24 hours pending heart rate response to addition of diltiazem. Associated attestation - Neftaly Gabriel MD - 12/08/2024 2:05 PM EST Patient was seen and examined. Agree with the general content of the note above unless stated otherwise. I conducted an independent review of the medical chart and formulated the care plan in its entirety. * Kathleen Cisneros, PT - 12/06/2024 2:00 AM EST Patient: Yaquelin Rasheed Age: 64 y.o. Sex: female COVID-19 [facility] Physical Therapy Treatment Ambulation: Walking Assistance: Close supervision Device: No device Distance Ambulated (ft): 40 PLOF: Level of [place]: Independent with mobility and functional transfers Lives With: Spouse (children nearby can assist) Receives Help From: Family () Type of Home: House Home Adaptive Equipment: Rollator Home Layout: One level Home Access: Stairs to enter with rails DME Needs: shower chair PT Discharge Recommendation: Home PT Reason for current recommendation based on assessment: Pt demonstrates adequate mobility to return home with continued home PT to further progress strength and endurance to increase patient's independence in all areas of functional mobility and to reduce the risk for falls. SUBJECTIVE RN approved pt. for PT visit at this time. Pt. was educated on the PT role, understood the benefitsof working with PT, and was agreeable. 12/06/24 1400 PT Last Visit PT Received On 12/06/24 General Family/Caregiver Present No PT Time Calculation PT Start Time 1400 PT Stop Time 1430 PT Time Calculation (min) 30 min Precautions Medical Precautions Contact;Droplet Safety Interventions ID band on;Call wynne within reach Vital Signs Heart Rate (!) 111 SpO2 100 % Oxygen Therapy O2 Flow Rate (L/min) 1 L/min Pain Assessment Pain Assessment No/denies pain Static Sitting Balance Static Sitting-Comment/Number of Minutes wnl Dynamic Sitting Balance Dynamic Sitting-Comments wnl Static Standing Balance Static Standing-Comment/Number of Minutes wnl Dynamic Standing Balance Dynamic Standing-Comments wnl Bed Mobility Sitting to Lying Assistance Independent Lying to Sitting Assistance Independent Transfers Sit to Stand Assistance Modified independent Chair/Bed to Chair/Bed Transfer Assistance Modified independent Toilet Transfer Assistance Supervision Ambulation Walking Assistance Close supervision Device No device Pattern WFL Distance Ambulated (ft) 40 Comments pt ambulated well, steady gait, c/o mild sob, hr up to 130 (after a seated rest, walked x 7 ft to bathroom, hr at 122) Stairs Stairs Assistance Not attempted, medical/safety concerns Procedures Procedures Therapeutic Activity Therapeutic Activity Therapeutic Activity Time Entry 30 Therapeutic Activity 1 functional mobility without AD in room, with focus on stable vitals while on1lpm 02; pt sitting up at outset of visit, hr 111, 02 98% she walked in room without a.d. with steady gait, c/o mild sob, 02 sats maintained in high 90's but hr up to 130 after walking 40 ft. (after a seated rest over EOB, pt walked 7 ft to bathroom and sat down, hr at 122.) Therapeutic Activity 2 educated pt on use of portable 02 tank PT Assessment PT Assessment Results Decreased endurance;Decreased mobility (endurance impacted by elevated hr, which went up to 130 after walking 40 ft.) Evaluation/Treatment Tolerance Treatment limited secondary to medical complications (Comment) Medical Staff Made Aware Yes Plan Treatment/Interventions Endurance training;Patient/family training PT Discharge Recommendations Home PT (discussed barrier of 3 campos; will assess when hr more stable) * Cj Morales RN - 12/05/2024 10:32 PM EST Goals: Problem: Physical Regulation:Infection Management Goal: Signs and symptoms of infection will decrease Outcome: Progressing Goal: Complications related to the disease process, condition or treatment will be avoided or minimized Outcome: Progressing Identify possible barriers to meeting goals/advancing plan of care: respiratory status Stability of the patient: Moderately Stable - Low risk of patient condition declining or worsening End of Shift Summary: * Kathleen Cisneros PT - 12/05/2024 4:04 PM EST Physical Therapy Therapy session was attempted for Yaquelin Rasheed by Kathleen Cisneros PT on 12/05/2024. The patient was unable to be seen for the following reason(s): Medically unstable, rhr ranging up to 130 Plan for return visit: tomorrow * AKBAR Graham - 12/05/2024 1:12 PM EST Subjective Patient was seen and examined this afternoon at bedside. She reports lower extremity swelling improved a little compared to yesterday She continues to have SOB. States RN attempted to remove O2 earlier but sat went into 80s and had to be replaced. She is having intermittent epistaxis which she attributes to oxygen use. Denies CP, abdominal pain or nausea. Objective Physical Exam General Exam: Age-appropriate female, awake, calm, cooperative, sitting up in the hospital bed in no acute distress. Skin Exam: Warm, dry and intact without diaphoresis. No rash noted HEENT exam: Head appears atraumatic. No scleral icterus. Respiratory Exam: Crackles at the bilateral bases. O2 in place. No increased work of breathing at rest Cardiovascular Exam: Tachycardic rate and irregularly irregular rhythm Gastrointestinal Exam: Abdomen is soft, nontender, and nondistended. BS appreciated Musculoskeletal Exam: 1+ pitting bilateral lower extremity edema is appreciated. Neurological Exam: Alert and oriented x 3. Last Recorded Vitals: Blood pressure 107/76, pulse (!) 111, temperature 36.9 ??C (98.4 ??F), temperature source Temporal,resp. rate 18, height 1.55 m (61.02 ), weight 109 kg (239 lb 13.8 oz), SpO2 97%. Medications: acetaZOLAMIDE, 250 mg, intravenous, Once amiodarone, 200 mg, oral, Daily dexAMETHasone, 6 mg, intravenous, Daily ferrous sulfate, 325 mg, oral, BID furosemide, 20 mg, intravenous, BID - letrozole, 2.5 mg, oral, Daily [START ON 12/06/2024] levothyroxine, 125 mcg, oral, q AM AC [Held by provider] losartan 100 mg, hydroCHLOROthiazide 25 mg (for BENICAR HCT), , oral, Daily metoprolol tartrate, 100 mg, oral, BID pantoprazole, 40 mg, oral, q AM AC remdesivir, 100 mg, intravenous, q24h And sodium chloride, 30 mL, intravenous, q24h rivaroxaban, 20 mg, oral, Daily with dinner sodium chloride, 30 mL, intravenous, Once PRN medications: acetaminophen, benzonatate, guaiFENesin, metoprolol tartrate, traZODone Lab Results Component Value Date WBC 16.7 (H) 12/05/2024 HGB 9.2 (L) 12/05/2024 HCT 31.7 (L) 12/05/2024 MCV 97.5 12/05/2024 PLT 340 12/05/2024 Lab Results Component Value Date GLUCOSE 139 (H) 12/05/2024 CALCIUM 7.9 (L) 12/05/2024 NA 139 12/05/2024 K 4.8 12/05/2024 CO2 41 (HH) 12/05/2024 CL 96 12/05/2024 BUN 32 (H) 12/05/2024 CREATININE 1.35 (H) 12/05/2024 Transthoracic echocardiogram (TTE) complete with PRN contrast, bubble, strain, and 3D order panel Final Result XR Chest 1 View Final Result Impression: 1. Stable right hemidiaphragmatic elevation since 2019. 2. Lungs grossly clear. Telerad AKBAR ([id number]) -------- FINAL REPORT -------- Dictated By: Keiko Dyson Dictated Date: 12/04/2024 09:28 ET Assigned Physician: Keiko Dyson Reviewed and Electronically Signed By: Keiko Dyson Signed Date: 12/04/2024 09:32 ET Workstation ID: [id number] Transcribed By: Self Edit Transcribed Date: 12/04/2024 09:[address] Angio Chest wo and/or w Contrast Final Result No pulmonary arterial emboli. No acute findings in the chest. -------- FINAL REPORT -------- Dictated By: LICO CALDWELL Dictated Date: 12/01/2024 11:53 ET Assigned Physician: LICO CALDWELL Reviewed and Electronically Signed By: LICO CALDWELL Signed Date: 12/01/2024 11:56 ET Workstation ID: [id number] Transcribed By: Self Edit Transcribed Date: 12/01/2024 11:53 ET Assessment/Plan This is a 64-year-old female with a past medical history including but not limited to LOKI, thyroid cancer status post thyroidectomy, breast cancer with plans for upcoming radiation, atrial fibrillation on Xarelto who presented to the ED from urgent care due to shortness of breath with exertion. Shewas noted to be hypoxic 87% on room air requiring O2 supplementation. Lab workup showed leukocytosis, elevated BNP 542. EKG showed A-fib with RVR, 111 bpm. She tested positive for COVID-19. She was admitted to the medical service for further management. Acute respiratory failure with hypoxia COVID-19 infection BC x 2 negative Respiratory viral panel positive for SARS-CoV-2 CTA showed no PE, no acute findings. --Continue remdesivir and will complete course today --Continue dexamethasone 6 mg IV daily --PRN guaifenesin --PRN tylenol --Isolation precautions --Wean O2 as tolerated --Flutter --IS Bilateral lower extremity edema Elevated BNP Chronic unspecified CHF BNP 542 Echocardiogram shows EF 60 to 65% with mild to moderate MR, trivial pericardial effusion. RV systolic function normal Creatinine slightly trending up to 1.35 today on 12/05 as discussed below however clinically continues to appear volume overloaded with pitting edema and crackles -- Continue Lasix 20 mg IV twice daily -- Diamox 250 mg IV x 1 LORI ? Due to volume overload Creatinine 1.25 on arrival, initially improved to 1.05 on 12/02 and then began uptrending Patient states she was taking 60 mg p.o. Lasix at home. Here has been receiving 20 mg daily and hasnot had much diuresis- still looks volume overloaded- changed to IV lasix 12/04 Creatinine uptrending to 1.35 from 1.25 on 12/05 --Continue Lasix 20 mg IV twice daily --Diamox 250 mg IV x 1 dose --Renally adjust medication as necessary --BMP in a.m. Breast cancer Due to begin radiation on the --Outpatient follow-up Chronic atrial fibrillation Secondary hypercoagulable state Current RVR Remains tachycardic, heart rates low 100s to 120s. Per patient she takes metoprolol succinate 100 mg twice daily at home-this was confirmed with her outpatient pharmacy --Continue metoprolol, changed to tartrate 100 mg twice daily --Continue amiodarone 200 mg daily --Continue Xarelto --Tele monitoring Epistaxis Having mild intermittent epistaxis H&H remains stable 9.2/31.7 on 12/05 Denies epistaxis at home. Attributes to oxygen use --Humidify O2 and wean as able --CBC daily Thyroid cancer status post thyroidectomy -- Continue levothyroxine CODE STATUS: Full code DVT prophylaxis: Xarelto Emergency contact is the patient's spouse, Robert, . Total time spent performing chart review, assessing the patient, documenting, discussing with attending MD/bedside RN/ICC, arranging care and performing a high level of medical decision making approximately 40 minutes. Case discussed with Dr. Gabriel. Associated attestation - Neftaly Gabriel MD - 12/06/2024 9:12 AM EST Patient was seen and examined. Agree with the general content of the note above unless stated otherwise. I conducted an independent review of the medical chart and formulated the care plan in its entirety. Uncontrolled A-fib noted. Stop metoprolol succinate and start metoprolol tartrate 100 mg twice daily Case discussed with nursing and ICC * Treasure Padron RN - 12/05/2024 4:26 AM EST Goals: Patient remains on precautions for COVID/Prn medications given for cough Identify possible barriers to meeting goals/advancing plan of care: Stability of the patient: Moderately Stable - Low risk of patient condition declining or worsening End of Shift Summary: * Heather Lopez RN - 12/04/2024 3:10 PM EST CM Progress Note ELDON: 12/05-12/06 Barriers: afib w/rvr, elevated WBC Plan: HOME SELF-Declines services * Neftaly Gabriel MD - 12/04/2024 10:36 AM EST Subjective Patient was seen and examined this morning at bedside. Reports she started to feel sick on Wednesday with cold symptoms Had progressive worsening of her cough and shortness of breath States cough is productive of sputum, now yellow in color Short of breath mostly on exertion Denies chest pain, abdominal pain No vomiting or diarrhea Has lower extremity swelling, followed by [facility] [facility] outpatient. Started on diuretics maybe3 weeks ago, dose recently increased to 60 mg daily Objective Physical Exam General Exam: Age-appropriate female, awake, calm, cooperative, sitting up in the chair at bedside in no acute distress. Skin Exam: Warm, dry and intact without diaphoresis. No rash noted HEENT exam: Head appears atraumatic. No scleral icterus. Respiratory Exam: Crackles at the bilateral bases. O2 in place. No increased work of breathing at rest Cardiovascular Exam: Borderline tachycardic rate and irregularly irregular rhythm Gastrointestinal Exam: Abdomen is soft, nontender, and nondistended. Musculoskeletal Exam: Bilateral lower extremity edema is appreciated. Neurological Exam: Alert and oriented x 3. Last Recorded Vitals: Blood pressure 120/62, pulse 103, temperature 36.8 ??C (98.3 ??F), temperature source Tympanic, resp. rate 13, height 1.549 m (61 ), weight 109 kg (240 lb), SpO2 97%. Medications: amiodarone, 200 mg, oral, Daily dexAMETHasone, 6 mg, intravenous, Daily ferrous sulfate, 325 mg, oral, BID furosemide, 20 mg, intravenous, BID - letrozole, 2.5 mg, oral, Daily levothyroxine, 250 mcg, oral, q AM AC [Held by provider] losartan 100 mg, hydroCHLOROthiazide 25 mg (for BENICAR HCT), , oral, Daily metoprolol succinate, 100 mg, oral, Daily pantoprazole, 40 mg, oral, q AM AC remdesivir, 100 mg, intravenous, q24h And sodium chloride, 30 mL, intravenous, q24h rivaroxaban, 20 mg, oral, Daily with dinner sodium chloride, 30 mL, intravenous, Once PRN medications: acetaminophen, benzonatate, guaiFENesin, traZODone Lab Results Component Value Date WBC 19.1 (H) 12/04/2024 HGB 9.1 (L) 12/04/2024 HCT 31.6 (L) 12/04/2024 MCV 98.4 (H) 12/04/2024 PLT 340 12/04/2024 Lab Results Component Value Date GLUCOSE 134 (H) 12/04/2024 CALCIUM 8.8 12/04/2024 NA 140 12/04/2024 K 4.7 12/04/2024 CO2 39 (H) 12/04/2024 CL 100 12/04/2024 BUN 30 (H) 12/04/2024 CREATININE 1.25 (H) 12/04/2024 XR Chest 1 View Final Result Impression: 1. Stable right hemidiaphragmatic elevation since 2019. 2. Lungs grossly clear. Telerad PA ([id number]) -------- FINAL REPORT -------- Dictated By: Keiko Dyson Dictated Date: 12/04/2024 09:28 ET Assigned Physician: Keiko Dyson Reviewed and Electronically Signed By: Keiko Dyson Signed Date: 12/04/2024 09:32 ET Workstation ID: [id number] Transcribed By: Self Edit Transcribed Date: 12/04/2024 09:[address] Angio Chest wo and/or w Contrast Final Result No pulmonary arterial emboli. No acute findings in the chest. -------- FINAL REPORT -------- Dictated By: LICO CALDWELL Dictated Date: 12/01/2024 11:53 ET Assigned Physician: LICO CALDWELL Reviewed and Electronically Signed By: LICO CALDWELL Signed Date: 12/01/2024 11:56 ET Workstation ID: [id number] Transcribed By: Self Edit Transcribed Date: 12/01/2024 11:53 ET Transthoracic echocardiogram (TTE) complete with PRN contrast, bubble, strain, and 3D order panel (Results Pending) Assessment/Plan This is a 64-year-old female with a past medical history including but not limited to LOKI, thyroid cancer status post thyroidectomy, breast cancer with plans for upcoming radiation, atrial fibrillation on Xarelto who presented to the ED from urgent care due to shortness of breath with exertion. Shewas noted to be hypoxic 87% on room air requiring O2 supplementation. Lab workup showed leukocytosis, elevated BNP 542. EKG showed A-fib with RVR, 111 bpm. She tested positive for COVID-19. She was admitted to the medical service for further management. Acute respiratory failure with hypoxia COVID-19 infection BC x 2 negative Respiratory viral panel positive for SARS-CoV-2 CTA showed no PE, no acute findings. --Continue remdesivir --Continue dexamethasone 6 mg IV daily --PRN guaifenesin --PRN tylenol --Isolation precautions --Wean O2 as tolerated --Flutter --IS Bilateral lower extremity edema Elevated BNP Chronic unspecified CHF BNP 542 --Obtain echocardiogram --DC p.o. Lasix. Start Lasix 20 mg IV twice daily LORI ? Due to volume overload Creatinine 1.25 on arrival, initially improved to 1.05 on 12/02 and then began uptrending, back to 1.25 on 12/04 Patient states she was taking 60 mg p.o. Lasix at home. Here has been receiving 20 mg daily and hasnot had much diuresis- still looks volume overloaded --DC p.o. Lasix. Start Lasix 20 mg IV twice daily --Renally adjust medication as necessary --BMP in a.m. Breast cancer Due to begin radiation on the --Outpatient follow-up Chronic atrial fibrillation Secondary hypercoagulable state Current RVR Heart rates low 100s to 120s this morning at the time of my evaluation --Continue metoprolol 100 mg daily --Continue amiodarone 200 mg daily --Echocardiogram --Continue Xarelto --May need more med adjustment if rates do not improve with diuresis Thyroid cancer status post thyroidectomy -- Continue levothyroxine CODE STATUS: Full code DVT prophylaxis: Xarelto Emergency contact is the patient's spouse, Robert, . Total time spent performing chart review, assessing the patient, documenting, discussing with attending MD/bedside RN/ICC, arranging care and performing a high level of medical decision making approximately 45 minutes. Case discussed with Dr. Gabriel. * Kathleen Cisneros, PT - 12/04/2024 9:15 AM EST Patient: Yaquelin Rasheed Age: 64 y.o. Sex: female COVID-19 12/04/24 0915 PT Last Visit PT Received On 12/04/24 General Family/Caregiver Present No PT Time Calculation PT Start Time 914 PT Stop Time 944 PT Time Calculation (min) 30 min Precautions Medical Precautions Contact;Droplet;Fall Risk Safety Interventions Call wynne within reach RUE Weight Bearing Status Full LUE Weight Bearing Status Full RLE Weight Bearing Status Full LLE Weight Bearing Status Full Vital Signs Heart Rate 102 SpO2 97 % Oxygen Therapy O2 Flow Rate (L/min) 2.5 L/min Pain Assessment Pain Assessment No/denies pain Cognition Overall Cognitive Status WFL Home Living Type of Home House Lives With Spouse (children nearby can assist) Home Adaptive Equipment Rollator Home Layout One level Home Access Stairs to enter with rails Entrance Stairs-Rails Rail on the right going up Entrance Stairs-Number of Steps 3 Prior Function Level of [place] Independent with mobility and functional transfers Ambulation Status Household ambulator Receives Help From Family () Indoor Mobility Assistance Independent Stairs Assistance Needed Some Help Prior Device Use No prior device use;Walker (uses rollator for longer distances) Activity Tolerance Endurance Tolerates 30 min exercise with multiple rests Sensation Light Touch No apparent deficits Static Sitting Balance Static Sitting-Comment/Number of Minutes wnl Dynamic Sitting Balance Dynamic Sitting-Comments wnl Static Standing Balance Static Standing-Comment/Number of Minutes good Dynamic Standing Balance Dynamic Standing-Comments good Bed Mobility Sitting to Lying Assistance Not applicable, did not do prior (sleeps in recliner at baseline) Lying to Sitting Assistance Not applicable, did not do prior Transfers Sit to Stand Assistance Standby assistance Sit to Stand Deficit Verbal cueing;Supervision/safety awareness Chair/Bed to Chair/Bed Transfer Assistance Standby assistance Toilet Transfer Assistance Contact guard (assist with 02 tubing) Ambulation Walking Assistance Standby assistance Walking Deficit Supervision/safety awareness;Limited endurance;LE weakness;Gait deviation (pain b knees with ambulation and stairs) Device Rolling walker Distance Ambulated (ft) 10 Comments pt ambulated on level surfaces with steady gait, decreased endurance with mod sob and hr at times going up to 130 Stairs 1 step (curb): Assistance Not attempted, medical/safety concerns RUE Assessment RUE Assessment Within Functional Limits LUE Assessment LUE Assessment Within Functional Limits RLE Assessment RLE Assessment Impaired RLE Assessment Comments hip: 3-/5, knee 4/5 LLE Assessment LLE Assessment Impaired LLE Assessment Comments hip 3/5, knee: 4/5 PT Assessment PT Assessment Results Decreased strength;Decreased endurance;Impaired gait;Decreased mobility (functional mobility is also impacted by pain r/t oa of L shoulder, b knees and some hip pain. She has edema b feet and l hand) Comments pt c/o pain L shoulder and b knees r/t oa; with limited L shoulder AROM; (She demonstrates ble weakness,antalgic gait, with decreased activity tolerance and hr ranging [id number] with limited ambulation while on 2.5lpm 02. (02 sats maintained on supplemental 02)) Medical Staff Made Aware Yes Plan Treatment/Interventions Functional transfer training;LE strengthening/ROM;Endurance training;Patient/family training;Equipment eval/education;Gait training;Continued evaluation PT Plan Skilled PT PT Frequency 2 days per week PT Discharge Recommendations Home PT Equipment Recommended shower chair PT - Evaluation Status Complete PT - OK to Discharge Yes PT Evaluation Time Entry PT Evaluation (Moderate) Time Entry 30 PLAN Acute Care Plan: Treatment/Interventions: Functional transfer training, LE strengthening/ROM, Endurance training, Patient/family training, Equipment eval/education, Gait training, Continued evaluation PT Plan: Skilled PT PT Frequency: 2 days per week PT Discharge Recommendations: Home PT Equipment Recommended: shower chair Encounter Problems Encounter Problems (Active) Template: Physical Therapy Problem: PT Short Term Goals Dates: Start: 12/04/24 Goal: Patient will ambulate x 50ft with r.walker, modified independently. Dates: Start: 12/04/24 Expected End: 12/07/24 Goal: Patient will be able to safely negotiate 3 stairs with min assist and 1 rail Dates: Start: 12/04/24 Encounter Problems (Resolved) There are no resolved problems. EDUCATION Education Documentation Teach proper use of assistive devices, taught by Kathleen Cisneros PT at 12/04/2024 11:23 AM. Learner: Patient Readiness: Acceptance Method: Explanation Response: Verbalizes Understanding Comment: advised to seek assistance for functional mobility with02 and rwalker Education Comments No comments found. Kathleen Cisneros PT * Chaya Hopson RN - 12/03/2024 10:28 PM EST Problem: Physical Regulation:Infection Management Goal: Signs and symptoms of infection will decrease Outcome: Progressing Goal: Complications related to the disease process, condition or treatment will be avoided or minimized Outcome: Progressing Goals: Identify possible barriers to meeting goals/advancing plan of care: pt transferred to tele floor d/t A-fib with RVR Stability of the patient: Moderately Unstable - Medium risk of patient condition declining or worsening End of Shift Summary: in progress * Vidhi Aponte RN - 12/03/2024 6:31 PM EST 12/03/24 1830 Initial Transition Plan Initial Transition Plan Home Back up Transition Plan Back up Transition plan Home Discharge Planning Living Arrangements Spouse/significant other Type of Residence Private residence Assistive Devices Walker;Eyeglasses Support Systems Spouse/significant other;Children;Friends Medication Coverage Has Med Coverage Under Insurance Plan Yes Medication Affordability No concerns related to payment for meds Anticipated Discharge Needs Discipline following 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 Yes ELDON: 12/04-12/05 Plan: home self care Barriers: 2L covid + Therapy Eval: na Referral status: na patient and family decline services Auth status: na Last BM: 12/03 [facility]: [facility] HCP: Yes Support Persons and Availability: Significant Other PCP: Amita Ruiz MD * AKBAR Mcclain - 12/03/2024 11:39 AM EST Yaquelin Rasheed 12/01/2024 1960 64 y.o. [phone] Neftaly Gabriel MD SUBJECTIVE : Improving shortness of breath with exertion. No fever, night sweats, chills. OBJECTIVE: Visit Vitals BP 131/64 Pulse 110 Temp 36 ??C (96.8 ??F) Resp 19 Temp (24hrs), Av.3 ??C (97.4 ??F), Min:35.5 ??C (95.9 ??F), Max:37 ??C (98.6 ??F) Body mass index is 45.35 kg/m??. No results found for: PTWT , PTHT Intake/Output Summary (Last 24 hours) at 12/03/2024 1139 Last data filed at 12/02/2024 1656 Gross per 24 hour Intake 280 ml Output -- Net 280 ml Wt Readings from Last 1 Encounters: 12/01/24 1006 109 kg (240 lb) PHYSICAL EXAM: GEN: Alert, oriented. No distress. HEENT: Atraumatic, symmetric, PERRLA. Neck: Supple, nontender, no range of motion limitation. Lungs: Clear, no accessory muscle use. Heart: Regular, no murmur. Abdomen: Not distended, soft, nontender. Bowel sounds present. Neuro: Alert, oriented. Cranial nerves II to XII grossly intact. No facial droop. No motor deficit,no sensory deficit. Psych: Cooperative, calm. RESULTS: CBC BMP Results from last 7 days Lab Units 12/03/24 0652 12/02/24 0624 12/01/24 1012 WBC AUTO K/mcL 15.6* 17.3* 23.0* HEMOGLOBIN g/dL 8.3* 9.0* 10.0* HEMATOCRIT % 28.9* 30.8* 33.3* PLATELETS K/mcL 253 248 274 LYMPHS PCT MAN % -- -- 6.0 LYMPHS PCT AUTO % 9.1 6.1 -- MONO PCT MAN % -- -- 4.0 MONO PCT AUTO % 8.2 5.6 -- EOS PCT MAN % -- -- 0.0 EOS PCT AUTO % 0.0 0.0 -- Results from last 7 days Lab Units 12/03/24 0652 12/02/24 0623 12/01/24 1012 SODIUM mmol/L 141 138 136 POTASSIUM mmol/L 4.2 3.8 3.7 CHLORIDE mmol/L 102 102 99 CO2 mmol/L 37* 33* 33* ANION GAP 2* 3 4 BUN mg/dL 23 17 17 CREATININE mg/dL 1.15* 1.05 1.25* CALCIUM mg/dL 8.5 8.4* 8.8 MAGNESIUM mg/dL -- -- 1.8* Results from last 7 days Lab Units 12/03/24 0652 12/02/24 0612/01/24 1012 GLUCOSE mg/dL 127* 149* 139* Results from last 7 days Lab Units 12/01/24 1012 AST unit/L 12 ALT unit/L 21 Imaging: Scheduled Medications PRN Medications IV Medications amiodarone, 200 mg, Daily dexAMETHasone, 6 mg, Daily ferrous sulfate, 325 mg, BID furosemide, 20 mg, Daily letrozole, 2.5 mg, Daily levothyroxine, 250 mcg, q AM AC losartan 100 mg, hydroCHLOROthiazide 25 mg (for BENICAR HCT), , Daily metoprolol succinate, 100 mg, Daily pantoprazole, 40 mg, q AM AC remdesivir, 100 mg, q24h And sodium chloride, 30 mL, q24h rivaroxaban, 20 mg, Daily with dinner sodium chloride, 30 mL, Once acetaminophen, 650 mg, q6h PRN guaiFENesin, 200 mg, q4h PRN ASSESSMENT/PLAN: Acute hypoxic respiratory failure Secondary to COVID-19 infection. 64-year-old female with PMH iron deficiency anemia, thyroid cancer status post thyroidectomy, breast cancer with plans for radiation on the , atrial fibrillation on Xarelto who presented to the ED from urgent care for shortness of breath with exertion. Reported dry cough. On presentation, O2 sat was low 87% on room air and required oxygen supplementation. CBC showed increased white count 23.0. BNP high 542. EKG showed A-fib with RVR with ventricular response 111. Respiratory virus panel positive for COVID-[address] chest angio was negative for PE. Patient was started on remdesivir, steroids. This morning, patient reported Improving shortness of breath. Still with dry cough. O2 sat 94% on nasal cannula 2 L. White count continues to improve 15.6 from 17.3. Procalcitonin level normal. Continue with remdesivir, steroid, oxygen supplementation. Wean as able. LORI Likely prerenal. On admission, creatinine high at 1.25. This morning, creatinine normal 1.15. Breast cancer Patient reports she rescheduled radiation to the On letrozole Chronic atrial fibrillation Secondary hypercoagulable state On amiodarone, metoprolol, Xarelto. Hypertension On ARB's, hydrochlorothiazide. Chronic CHF, unspecified No formal CHF diagnosis. History of lower extremity edema. BMI 542. CT chest angio negative for signs of congestion. On Lasix. Thyroid cancer status post thyroidectomy On levothyroxine Class III obesity BMI 45.35. Weight reduction recommended. CODE STATUS Full DVT prophylaxis Xarelto Case discussed with Dr Gabriel Disclaimer: Speech recognition software was utilized to dictate portions of this document. Errors in principal archaeologist may be present. Please call / cortext me if any questions. Portions of this note such ROS, Exam, Assessment and Plan were copy pasted from previous notes. Information was reviewed and changes were made accordingly. I agree with above mentioned information Associated attestation - Neftaly Gabriel MD - 12/03/2024 12:25 PM EST Patient was seen and examined. Agree with the general content of the note above unless stated otherwise. I conducted an independent review of the medical chart and formulated the care plan in its entirety. Manfred on O2 supplementation via nasal cannula. Continue IV remdesivir, dexamethasone and oxygen supplementation Case discussed with nursing and ICC * Gabi Mahmood RN - 12/03/2024 4:15 AM EST Goals: Identify possible barriers to meeting goals/advancing plan of care: Respiratory improvement Stability of the patient: Moderately Stable - Low risk of patient condition declining or worsening End of Shift Summary: VSS, AxOx3, independent, deep breathing and coughing encouraged. * AKBAR Mcclain - 12/02/2024 3:34 PM EST Yaquelin Rasheed 12/01/2024 1960 64 y.o. [id number] Neftaly Gabriel MD SUBJECTIVE : Reported dry cough. Improving shortness of breath. No fever, night sweats, chills. OBJECTIVE: Visit Vitals BP (!) 153/72 Pulse 82 Temp 37 ??C (98.6 ??F) Resp 18 Temp (24hrs), Av.7 ??C (98.1 ??F), Min:36.4 ??C (97.5 ??F), Max:37 ??C (98.6 ??F) Body mass index is 45.35 kg/m??. No results found for: PTWT , PTHT No intake or output data in the 24 hours ending 12/02/24 1534 Wt Readings from Last 1 Encounters: 12/01/24 1006 109 kg (240 lb) PHYSICAL EXAM: GEN: Alert, oriented. No distress. HEENT: Atraumatic, symmetric, PERRLA. Neck: Supple, nontender, no range of motion limitation. Lungs: Clear, no accessory muscle use. Heart: Regular, no murmur. Abdomen: Not distended, soft, nontender. Bowel sounds present. Neuro: Alert, oriented. Cranial nerves II to XII grossly intact. No facial droop. No motor deficit,no sensory deficit. Psych: Cooperative, calm. RESULTS: CBC BMP Results from last 7 days Lab Units 12/02/24 0624 12/01/24 1012 WBC AUTO K/mcL 17.3* 23.0* HEMOGLOBIN g/dL 9.0* 10.0* HEMATOCRIT % 30.8* 33.3* PLATELETS K/mcL 248 274 LYMPHS PCT MAN % -- 6.0 LYMPHS PCT AUTO % 6.1 -- MONO PCT MAN % -- 4.0 MONO PCT AUTO % 5.6 -- EOS PCT MAN % -- 0.0 EOS PCT AUTO % 0.0 -- Results from last 7 days Lab Units 12/02/24 0623 12/01/24 1012 SODIUM mmol/L 138 136 POTASSIUM mmol/L 3.8 3.7 CHLORIDE mmol/L 102 99 CO2 mmol/L 33* 33* ANION GAP 3 4 BUN mg/dL 17 17 CREATININE mg/dL 1.05 1.25* CALCIUM mg/dL 8.4* 8.8 MAGNESIUM mg/dL -- 1.8* Results from last 7 days Lab Units 12/02/24 0623 12/01/24 1012 GLUCOSE mg/dL 149* 139* Results from last 7 days Lab Units 12/01/24 1012 AST unit/L 12 ALT unit/L 21 Imaging: Scheduled Medications PRN Medications IV Medications amiodarone, 200 mg, Daily dexAMETHasone, 6 mg, Daily ferrous sulfate, 325 mg, BID letrozole, 2.5 mg, Daily levothyroxine, 250 mcg, q AM AC metoprolol succinate, 100 mg, Daily pantoprazole, 40 mg, q AM AC remdesivir, 100 mg, q24h And sodium chloride, 30 mL, q24h rivaroxaban, 20 mg, Daily with dinner sodium chloride, 30 mL, Once acetaminophen, 650 mg, q6h PRN guaiFENesin, 200 mg, q4h PRN ASSESSMENT/PLAN: Acute hypoxic respiratory failure Secondary to COVID-19 infection. 64-year-old female with PMH iron deficiency anemia, thyroid cancer status post thyroidectomy, breast cancer with plans for radiation on the , atrial fibrillation on Xarelto who presented to the ED from urgent care for shortness of breath with exertion. Reported dry cough. On presentation, O2 sat was low 87% on room air and required oxygen supplementation. CBC showed increased white count 23.0. BNP high 542. EKG showed A-fib with RVR with ventricular response 111. Respiratory virus panel positive for COVID-[address] chest angio was negative for PE. Patient was started on remdesivir, steroids. This morning, patient still coughing. Improving shortness of breath. O2 sat 91% on nasal cannula 1 L. White count 17.12 from 23.0. Procalcitonin level normal. Continue with remdesivir, steroid. LORI Likely prerenal. On admission, creatinine high at 1.25. This morning, creatinine normal 1.05. Breast cancer Patient reports she rescheduled radiation to the On letrozole Chronic atrial fibrillation Secondary hypercoagulable state On amiodarone, metoprolol, Xarelto. Hypertension On ARB's, hydrochlorothiazide. Chronic CHF, unspecified No formal CHF diagnosis. History of lower extremity edema. BMI 542. CT chest angio negative for signs of congestion. On Lasix. Thyroid cancer status post thyroidectomy On levothyroxine Class III obesity BMI 45.35. Weight reduction recommended. CODE STATUS Full DVT prophylaxis Xarelto Case discussed with Dr Gabriel Disclaimer: Speech recognition software was utilized to dictate portions of this document. Errors in principal archaeologist may be present. Please call / cortext me if any questions. Portions of this note such ROS, Exam, Assessment and Plan were copy pasted from previous notes. Information was reviewed and changes were made accordingly. I agree with above mentioned information Associated attestation - Neftaly Gabriel MD - 12/03/2024 12:22 PM EST Patient was seen and examined. Agree with the general content of the note above unless stated otherwise. I conducted an independent review of the medical chart and formulated the care plan in its entirety. Patient has acute hypoxic respiratory failure secondary to COVID-19 infection Continue IV remdesivir. Will need full course Case discussed with nursing and ICC * Vikash Bright RN - 12/02/2024 4:57 AM EST Problem: Physical Regulation:Infection Management Goal: Signs and symptoms of infection will decrease Outcome: Progressing Goal: Complications related to the disease process, condition or treatment will be avoided or minimized Outcome: Progressing Goals: Identify possible barriers to meeting goals/advancing plan of care: denies pain occasional cough voiced Stability of the patient: Moderately Stable - Low risk of patient condition declining or worsening End of Shift Summary: pt adhere to infection management plan, precaution maintained. Pt denies painjust occasional cough voiced. Prn cough agent was given and has been effective. Pt is currently resting comfortable at this time. Precaution and safety measures maintained. * Magi Bowser RN - 12/01/2024 9:31 AM EST Pt BIBA from urgent care with persistent cough from 2 days ago +COVID with hx afib. Urgent care concerned by ECG. AFIB in the 80s for EMS. Pt denies SOB, pain for EMS. Metoprolol, xarelto, synthroid,amio. * AKBAR Radford - 12/01/2024 9:23 AM EST Emergency Medicine Note Patient Name: Yaquelin Rasheed Initial Evaluation: 12/01/2024 : 1960 Patient's PCP: Amita Ruiz MD Emergency Physician: AKBAR Radford History of Present Illness Chief Complaint: Chief Complaint Patient presents with ??? Cough ??? Chest Pain HPI: This is a 64-year-old female with a history of A-fib on Xarelto, breast cancer about to start radiation in the next couple of days, history of thyroid cancer who presents to the ED with a 2 to 3-day history of cough and shortness of breath. She states that she was up all night coughing last night so she went to the urgent care today. She swabbed positive for COVID. There were concerns about her potentially elevated heart rate and low O2 so they sent her to the ED. Patient states her O2 sat was 89% at the urgent care. She does not smoke. No history of asthma or COPD. ROS: GENERAL: No fever, no chills, no acute distress OPHTHALMOLOGY: No vision changes, no redness, or discharge ENT: No sore throat , no nosebleed CARDIOVASCULAR: No chest pain, no peripheral edema RESPIRATORY: + Dyspnea, no sputum production, and + cough MUSCULOSKELETAL: No myalgias, no back pain, and no neck pain. GI: No abdominal pain, no nausea, no vomiting, no diarrhea. No black stool, bright red blood per rectum, or constipation. GENITOURINARY: No dysuria, no urgency, no frequency NEUROLOGY: No paresthesias, + weakness, No headache PSYCHIATRIC: No depression, no suicidality, or intent of self-harm DERMATOLOGY: No rash no pruritus IMMUNOLOGY: + Immunocompromise HEMATOLOGY: No bleeding, no bruising Previous History Past Medical History: Diagnosis Date ??? A-fib (CMS/HCC) ??? Cancer (CMS/HCC) ??? Gout ??? Reflux esophagitis ??? Sleep apnea ??? Thyroid cancer (CMS/HCC) Past Surgical History: Procedure Laterality Date ??? BREAST LUMPECTOMY Right 09/20/2024 ??? COLONOSCOPY ??? CYSTOSCOPY ??? PARTIAL HYSTERECTOMY ??? THYROIDECTOMY Social History Tobacco Use ??? Smoking status: Never ??? Smokeless tobacco: Never Substance Use Topics ??? Alcohol use: Not Currently ??? Drug use: Never Family History Problem Relation Name Age of Onset ??? Lung cancer Mother ??? Other (malignant melanoma) Father is allergic to erythromycin and lisinopril. No current facility-administered medications on file prior to encounter. Current Outpatient Medications on File Prior to Encounter Medication Sig Dispense Refill ??? amiodarone (PACERONE) 200 mg tablet Take by mouth 1 (one) time each day. ??? cholecalciferol (VITAMIN D-3) 50 mcg (2,000 unit) tablet Take 1 tablet (2,000 Units total) by mouth 1 (one) time each day. ??? ferrous sulfate 325 mg (65 mg iron) EC tablet Take 1 tablet (325 mg total) by mouth 2 (two) times a day. Do not crush, chew, or split. ??? furosemide (LASIX) 40 mg tablet Take 1 tablet (40 mg total) by mouth 1 (one) time each day. ??? letrozole (FEMARA) 2.5 mg tablet Take 1 tablet (2.5 mg total) by mouth 1 (one) time each day Take with or without food. ??? levothyroxine (SYNTHROID, LEVOTHROID) 125 mcg tablet Take 2 tablets (250 mcg total) by mouth 1 (one) time each day before breakfast. ??? metoprolol succinate (TOPROL-XL) 100 mg 24 hr tablet Take 1 tablet (100 mg total) by mouth 1 (one) time each day. Do not crush or chew. ??? olmesartan (BENICAR) 40 mg tablet Take 1 tablet (40 mg total) by mouth 1 (one) time each day. ??? omeprazole (PriLOSEC) [address] capsule Take 1 capsule (20 mg total) by mouth 1 (one) time if needed. Do not crush or chew. ??? rivaroxaban (XARELTO) 20 mg tablet Take 1 tablet (20 mg total) by mouth 1 (one) time each day with dinner. Take with food. Physical Exam ED Triage Vitals [12/01/24 0941] Temp Heart Rate Resp BP -- 106 20 130/58 SpO2 Temp src Heart Rate Source Patient Position 99 % -- -- Lying BP Location FiO2 (%) Left arm -- General: Well-appearing, well nourished, in no acute distress HEENT: PERRL, EOMI, external ears and nose appear unremarkable, airway is patent Neck: Supple, full range of motion Chest: Clear to auscultation; no evidence of respiratory distress Circulatory: RRR, extremities well perfused Abdomen: Non-distended, Non-Tender Extremities: Normal ROM, No edema Skin: Warm and dry Neuro: Alert and oriented, no focal deficits Results Labs Reviewed RESPIRATORY VIRUS PANEL MOLECULAR STUDY CBC AND DIFFERENTIAL Narrative: The following orders were created for panel order CBC and differential. Procedure Abnormality Status --------- ------ CBC auto differential[[id number]] Please view results for these tests on the individual orders. BASIC METABOLIC PANEL CBC WITH AUTO DIFFERENTIAL TROPONIN I HIGH SENSITIVITY Abnormal Labs Reviewed - No abnormal labs to display CT Angio Chest wo and/or w Contrast (Results Pending) I have discussed the incidental/abnormal imaging and/or lab abnormalities with the patient and haveinstructed them the need for further evaluation and workup with their primary care doctor. I have provided the patient with a paper copy of the abnormality. The laboratory results, imaging results and other diagnostic exam results were reviewed in the EMR. EKG Interpretation Critical Care Time None Medical Decision Making Medications - No data to display ED Course as of 12/01/24 1237 WedDec 01, 2024 1236 Chest ET is negative. Patient is hypoxic on room air, 87%. Comfortable on 2 L. Anticipate admission for further treatment of COVID. [JH] ED Course User Index [JH] AKBAR Radford Clinical Impressions as of 12/01/24 1237 COVID Differential to include COVID, pneumonia, PE, ACS, influenza 9:46 AM. Patient well-appearing, patient 99% SpO2 on 2 L nasal cannula, lungs are clear. Workup is pending. She took her amlodipine and metoprolol this am. HR currently in the low 100s. IV fluids. Will reevaluate. Procedures Procedures Diagnosis 1. COVID CT Angio Chest wo and/or w Contrast CT Angio Chest wo and/or w Contrast Disposition Data Unavailable ED Prescriptions None Physician Attestation This is a split/shared visit with AKBAR Radford. I personally performed the medical decision making (MDM) for the care of this patient on 12/01/24 as documented below Agree with assessment and plan I examined and saw the patient myself female with COVID and tachycardia given her risk factors we will scan with a CTA to rule out pneumonia and PE although she is on Eliquis. Will reassess oxygenation. Steroids. Will start Paxlovid Josh Carranza MD 12/01/24 11:19 AM EST MD Ailyn Ritter PA 12/01/24 0949 Josh Carranza MD 12/01/24 1120 AKBAR Radford 12/01/24 1237 documented in this encounter H&P Notes * AKBAR Mcclellan - 12/01/2024 1:34 PM EST Images from the original note were not included. NAZ HISTORY AND PHYSICAL Please contact author [AKBAR Mcclellan] via basestone/D[employer]. Patient: Yaquelin Rasheed Admission Date/Time: 12/01/2024 9:30 AM : 1960 [64 y.o.] Patient's PCP: Amita Ruiz MD Attending Provider: Josh Carranza MD;Ka* CHIEF COMPLAINT Sob, cough HISTORY OF PRESENT ILLNESS Mrs. Rasheed is a 64-year-old female with PMH iron deficiency anemia, thyroid cancer status post thyroidectomy, breast cancer with plans for radiation on the , fibrillation on Xarelto, peripheral edema on Lasix amongst others seen today for complaint of shortness of breath and cough. Patient reports that for the last few days she has been more short of breath and has been experiencing a dry cough. She does feel like she has some chest congestion. She denies any headaches, fevers or chills, chest pain, vomiting, abdominal pain, diarrhea, increase in her baseline leg swelling. She does report that she has had some nausea and decreased appetite. She does report that her sister was sick withthe flu on and she had been around her during that time. She presented to urgent care earlier today as she was coughing all throughout the night and they swabbed her and noted she was positive for COVID. Since her O2 sat was 89% at urgent care and was tachycardic so she was referred to the ED. She does not smoke drink or use drugs. She does not have a history of asthma or COPD. Vitals are as follows: Temperature of 37.5, pulse of 106, respirate of 20, blood pressure of 130/58and pulse ox of 99% on room air, subsequent was 87% and she was placed on 2 L nasal cannula sattingat 94%. Labs are notable for creatinine of 1.25, BUN of 17, troponin of 7, white blood cell count of 23, hemoglobin of 10.0, hematocrit of 33.3, COVID-positive test. CT angio of the chest with and without showed no pulmonary arterial emboli with no acute findings in the chest. EKG was atrial fibrillation with RVR with rate of 111 bpm. Patient was given 1 L of normal saline in the ED. Patient be transferred to the care of [facility] staff for further management of their acute hypoxic respiratory failure, COVID-19 infection, LORI. Review of Systems Review of Systems 10 point ROS negative as otherwise stated in the HPI MEDICAL HISTORY Past Medical History Past Medical History: Diagnosis Date ??? A-fib (CMS/HCC) ??? Cancer (CMS/HCC) ??? Gout ??? Reflux esophagitis ??? Sleep apnea ??? Thyroid cancer (CMS/HCC) Past Surgical History Past Surgical History: Procedure Laterality Date ??? BREAST LUMPECTOMY Right 09/20/2024 ??? COLONOSCOPY ??? CYSTOSCOPY ??? PARTIAL HYSTERECTOMY ??? THYROIDECTOMY Social History reports that she has never smoked. She has never used smokeless tobacco. She reports that she does not currently use alcohol. She reports that she does not use drugs. Family History family history includes Lung cancer in her mother; malignant melanoma in her father. Allergies is allergic to erythromycin and lisinopril. Home Medications No current facility-administered medications on file prior to encounter. Current Outpatient Medications on File Prior to Encounter Medication Sig Dispense Refill ??? amiodarone (PACERONE) 200 mg tablet Take by mouth 1 (one) time each day. ??? cholecalciferol (VITAMIN D-3) 50 mcg (2,000 unit) tablet Take 1 tablet (2,000 Units total) by mouth 1 (one) time each day. ??? ferrous sulfate 325 mg (65 mg iron) EC tablet Take 1 tablet (325 mg total) by mouth 2 (two) times a day. Do not crush, chew, or split. ??? furosemide (LASIX) 40 mg tablet Take 0.5 tablets (20 mg total) by mouth 1 (one) time each day. ??? letrozole (FEMARA) 2.5 mg tablet Take 1 tablet (2.5 mg total) by mouth 1 (one) time each day Take with or without food. ??? levothyroxine (SYNTHROID, LEVOTHROID) 125 mcg tablet Take 2 tablets (250 mcg total) by mouth 1 (one) time each day before breakfast. ??? metoprolol succinate (TOPROL-XL) 100 mg 24 hr tablet Take 1 tablet (100 mg total) by mouth 1 (one) time each day. Do not crush or chew. ??? olmesartan-hydroCHLOROthiazide (BENICAR HCT) 40-25 mg per tablet Take 1 tablet by mouth 1 (one)time each day. ??? rivaroxaban (XARELTO) 20 mg tablet Take 1 tablet (20 mg total) by mouth 1 (one) time each day with dinner. Take with food. ??? omeprazole (PriLOSEC) [address] capsule Take 1 capsule (20 mg total) by mouth 1 (one) time if needed. Do not crush or chew. ??? [DISCONTINUED] olmesartan (BENICAR) 40 mg tablet Take 1 tablet (40 mg total) by mouth 1 (one) time each day. OBJECTIVE Vitals Visit Vitals BP 100/50 (BP Location: Left arm, Patient Position: Sitting) Pulse 93 Temp 37.5 ??C (99.5 ??F) (Oral) Resp 18 Temp (24hrs), Av.5 ??C (99.5 ??F), Min:37.5 ??C (99.5 ??F), Max:37.5 ??C (99.5 ??F) Body mass index is 45.35 kg/m??. No results found for: PTWT , PTHT Physical Examination Physical Exam General: Younger female sitting upright in stretcher in no acute distress, calm Skin: Appropriate tone for ethnicity, warm, dry, no rashes or wounds HEENT: normocephalic, atraumatic, sclera nonicteric, JAZMINE, uvula midline Pulmonary: Lungs clear to auscultation in all lung [place] bilaterally. No wheezes railes or rhonchiappreciated, no respiratory distress, no accessory muscle use. Cardiac: S1 and S2 appreciated, no murmurs, rubs or gallops, 1+ peripheral edema Abdomen: Soft, non-tender, nondistended, no guarding or rebound tenderness appreciated. Bowel sounds normoactive. MSK: Full range of motion in upper and lower extremities Neuro: Alert and oriented x4. No focal neurological deficits appreciated. No facial droop. Psych: Normal affect. ECG: Was ECG Performed? Yes . Sinus Rhythm? No. Signs of acute ischemia? No Further Interpretation: 111 bpm atrial fibrillation with RVR with right bundle branch block LAB RESULTS (most recent) HEMATOLOGY Lab Results Component Value Date WBC 23.0 (H) 12/01/2024 HGB 10.0 (L) 12/01/2024 HCT 33.3 (L) 12/01/2024 MCV 94.3 12/01/2024 PLT 274 12/01/2024 CHEMISTRY Lab Results Component Value Date GLUCOSE 139 (H) 12/01/2024 NA 136 12/01/2024 K 3.7 12/01/2024 CO2 33 (H) 12/01/2024 CL 99 12/01/2024 BUN 17 12/01/2024 CREATININE 1.25 (H) 12/01/2024 EGFR 48 (L) 12/01/2024 CALCIUM 8.8 12/01/2024 ANIONGAP 4 12/01/[address] Angio Chest wo and/or w Contrast Final Result No pulmonary arterial emboli. No acute findings in the chest. -------- FINAL REPORT -------- Dictated By: LICO CALDWELL Dictated Date: 12/01/2024 11:53 ET Assigned Physician: LICO CALDWELL Reviewed and Electronically Signed By: LICO CALDWELL Signed Date: 12/01/2024 11:56 ET Workstation ID: [id number] Transcribed By: Self Edit Transcribed Date: 12/01/2024 11:53 ET ASSESSMENT & PLAN Acute hypoxic respiratory failure COVID-19 infection -Patient was seen today with complaint of shortness of breath and cough -Vitals are notable for O2 sat of 87% and she was placed on 2 L nasal cannula satting at 94% - Labs are notable for creatinine of 1.25, BUN of 17, troponin of 7, white blood cell count of 23, hemoglobin of 10.0, hematocrit of 33.3, COVID-positive test. -CT angio of the chest with and without showed no pulmonary arterial emboli with no acute findings in the chest. -EKG was atrial fibrillation with RVR with rate of 111 bpm. -Patient was given 1 L of normal saline in the ED. -Continue with remdesivir and dexamethasone, as needed cough medicine -Meet sepsis criteria with elevated white count, tachycardia and known source of infection -Will check blood cultures and a lactic -AM labs LORI -Previous creatinine was 0.88 on 03/2024, today is 1.29 -Suspect hypovolemia as she has had decreased p.o. intake and also she had an increase in her Lasixdose of the last few days -Continue with IVF and hold nephrotoxic agents/renally dose medication Breast cancer -Patient reports she rescheduled radiation to the -Continue with letrozole Atrial fibrillation Secondary hypercoagulable state -Initially was in RVR with rate in the 110, now in the 90s -Continue with amiodarone and metoprolol, Xarelto Chronic anemia -Appears around baseline, continue iron supplementation and we will check a panel Hypertension -Hold olmesartan/hydrochlorothiazide Peripheral edema -Hold furosemide -denies history of heart failure, will check a bnp ----bnp elevated will check an echo, her lungs are clear and imaging did not show any fluid, she only has 1+peripheral edema and was recently treated with increased lasix (20mg daily increased to 30mg ), I believe she is more on the dry side now. will hold off on diuretics at this time. Thyroid cancer status post thyroidectomy -Continue levothyroxine Admission checklist [x] Code status: Full Code - Confirmed [x] VTE Prophylaxis: Xarelto [x] Diet order on admission: Dietary Orders (From admission, onward) Start Ordered 12/01/24 1514 Adult diet [facility]; General, Cardiac; Regular; Sodium 2 gm Restriction Diet effective now Question Answer Comment Location [facility] Diet Type (req) General Diet Type (req) Cardiac General Diet Regular Diet Type (cardiac) Sodium 2 gm Restriction 12/01/24 1514 [x] Lines, tubes, drains: IV access [x] Medication reconciliation Health Care proxy with Phone number emergency contact is her Robert, Associated attestation - Fermin Ibanez MD - 12/02/2024 10:51 AM EST This is a split/shared visit with AKBAR Mcclellan. I personally performed the medical decision making (MDM) for the care of this patient on 12/01/24 as documented below Patient was discussed with advanced practitioner . I personally saw and examined the patient bedside. Chart was reviewed by me personally including relevant history, updates, labs, imaging. Agree with the documentation and plan as above except mentioned below. Patient is a 64 years old female who presents to the hospital with shortness of breath and cough. COVID-19 pneumonia -Hypoxia. O2 as needed. Continue with remdesivir Decadron. -Airborne isolation precaution. LORI-IV fluids. monitoring. Fermin Ibanez MD 12/02/24 10:51 AM EST documented in this encounter Procedure Notes * Radha Crockett RN - 12/06/2024 10:30 AM EST Images from the original note were not included. Vessel image with CVR for ultrasound guided PIV. documented in this encounter Consult Notes * Jordin Carreon MD - 12/06/2024 2:02 PM EST Images from the original note were not included. [facility] Cardiology- Cardiology Consultation Note PATIENT NAME: Yaquelin Rasheed ([id number]) DATE OF CONSULT: December 06, 2024 REFERRING PROVIDER: Dr. Gabriel PRIMARY SCIENCE PROFESSOR: Andrea Galarza [facility] ASSESSMENT & PLAN Principal Problem: COVID-19 Active Problems: Acute hypoxemic respiratory failure due to COVID-19 (CMS/HCC) History of atrial fibrillation which is paroxysmal and controlled with metoprolol and amiodarone. Anticoagulated on Xarelto. Present since 2020 Hypertension Obesity [facility] RECOMMENDATIONS: Add Cardizem CD 120 mg. Patient will follow-up with her primary tennis racket repairer. I have already notified him I would consider stopping the furosemide and seeing how she does. SUBJECTIVE REASON FOR CONSULTATION: A-fib with RVR HISTORY OF PRESENT ILLNESS: Yaquelin Rasheed is a 64 y.o. female. She has a history of of paroxysmal A-fib since 2020 or 2021. Shewas not really aware of her A-fib. No significant symptoms. She has been treated with metoprolol and amiodarone and largely staying in sinus rhythm. Not long ago she went for surgery on her breast. She was diagnosed with breast cancer and they found that she was in A-fib. She converted spontaneously. This was sometime in 2023. Several days ago she began coughing. The coughing became incessant. She was somewhat short of breath. She checked her O2 sat at home and they were moderately reduced. She was producing initially brown sputum. She did not feel febrile but she was wiped out . She went to urgent care where she had a viral panel. She tested positive for COVID and was in A-fib with RVR and she has been transferred here. She has been here since December 01. She is feeling better after treatment but her heart rates remain moderately rapid between 101 120. She is on the metoprolol 100 twice daily, amiodarone 200 dailyand she is chronically been anticoagulated with Xarelto 20. She still drops her sats to 87% with exertion on room air. At rest 92% on room air so she is getting supplemental oxygen. Initial CT angio did not show any pulmonary emboli or acute changes. Showed stable right hemidiaphragm elevation since 2019 and clear lungs Latest EKG shows A-fib at 100 bpm with a right bundle branch block chest x-ray See laboratories below. She is mildly anemic. It looks as though she has iron deficiency. BNP ahyio850. High-sensitivity troponin 7. Creatinine has risen to 1.4 it was 1.25 when she came in and thendropped to 1.05. Past history as noted below includes breast cancer with right-sided lumpectomy. Thyroidectomy in the past. Partial hysterectomy. Gout. Reflux esophagitis. Sleep apnea. Thyroid cancer. REVIEW OF SYSTEMS (ROS): Negative except as mentioned in the HPI. PAST MEDICAL HISTORY She has a past medical history of A-fib ([facility]/HCC), Cancer (CMS/HCC), Gout, Reflux esophagitis, Sleep apnea, and Thyroid cancer (CMS/HCC). PAST SURGICAL HISTORY She has a past surgical history that includes Colonoscopy; Breast lumpectomy (Right, 09/20/2024); Partial hysterectomy; Thyroidectomy; and Cystoscopy. SOCIAL HISTORY Tob: reports that she has never smoked. She has never used smokeless tobacco. ETOH: reports that she does not currently use alcohol. Drug: reports no history of drug use. FAMILY HISTORY She family history includes Lung cancer in her mother; malignant melanoma in her father. MEDICATIONS: Current Facility-Administered Medications: ??? acetaminophen (TYLENOL) tablet 650 mg, 650 mg, oral, q6h PRN, AKBAR Mcclellan ??? amiodarone (PACERONE) tablet 200 mg, 200 mg, oral, Daily, AKBAR Mcclellan, 200 mg at 12/06/24920 ??? benzonatate (TESSALON) capsule 200 mg, 200 mg, oral, TID PRN, AKBAR Messina, 200 mg at 12/06/24608 ??? dexAMETHasone (DECADRON) injection 6 mg, 6 mg, intravenous, Daily, AKBAR Mcclellan, 6 mg at12/06/24919 ??? ferrous sulfate tablet 325 mg, 325 mg, oral, BID, AKBAR Mcclellan, 325 mg at 12/06/24920 ??? furosemide (LASIX) injection 20 mg, 20 mg, intravenous, BID 08-15, AKBAR Graham, 20 mgat 12/06/24919 ??? guaiFENesin tablet 200 mg, 200 mg, oral, q4h PRN, AKBAR Mcclellan, 200 mg at 12/05/242025 ??? letrozole (FEMARA) tablet 2.5 mg, 2.5 mg, oral, Daily, AKBAR Mcclellan, 2.5 mg at 12/06/24921 ??? levothyroxine (SYNTHROID, LEVOTHROID) tablet 125 mcg, 125 mcg, oral, q AM AC, AKBAR Graham, 125 mcg at 12/06/24 0610 ??? [Held by provider] losartan 100 mg, hydroCHLOROthiazide 25 mg (for BENICAR HCT), , oral, Daily,AKBAR Mcclain, Given at 12/03/24 0934 ??? metoprolol tartrate (LOPRESSOR) injection 5 mg, 5 mg, intravenous, q6h PRN, Neftaly Gabriel MD, 5 mg at 12/06/24 1053 ??? metoprolol tartrate (LOPRESSOR) tablet 100 mg, 100 mg, oral, BID, Neftaly Gabriel MD, 100 mg at 12/06/24 0921 ??? pantoprazole (PROTONIX) EC tablet 40 mg, 40 mg, oral, q AM AC, AKBAR Mcclellan, 40 mg at 12/06/24 0610 ??? remdesivir (VEKLURY) 100 mg in sodium chloride 0.9 % 250 mL IVPB, 100 mg, intravenous, q24h, Stopped at 12/05/24 1555 AND [COMPLETED] sodium chloride 0.9 % flush bag 30 mL, 30 mL, intravenous, q24h, AKBAR Mcclellan, 30 mL at 12/05/24 1602 ??? rivaroxaban (XARELTO) tablet 20 mg, 20 mg, oral, Daily with dinner, AKBAR Mcclellan, 20 mg at 12/05/24 1801 ??? [COMPLETED] remdesivir (VEKLURY) 200 mg in sodium chloride 0.9 % 250 mL IVPB, 200 mg, intravenous, Once, Stopped at 12/01/24 1600 AND sodium chloride 0.9 % flush bag 30 mL, 30 mL, intravenous, Once, AKBAR Mcclellan ??? traZODone (DESYREL) tablet 50 mg, 50 mg, oral, Nightly PRN, AKBAR Graham, 50 mg at 12/05/242025 ALLERGIES: She is allergic to erythromycin and lisinopril. OBJECTIVE Vitals: 12/06/24 1231 BP: 101/70 Pulse: (!) 111 Resp: Temp: SpO2: 94% Body mass index is 45.29 kg/m??. PHYSICAL EXAMINATION: APPEARANCE: Alert and in no acute distress. Morbidly obese breath sounds seem diminished. Decreasedair movement but I do not detect any rales or rhonchi. EYES: PERRL, conjunctiva and sclera normal EARS: External ears normal. NOSE/SINUS: Nares normal. Septum midline. Mucosa normal. No drainage or sinus tenderness. MOUTH/THROAT: no erythema or exudates NECK: JVP less then 8cm H2O, No bruits., Neck supple, no adenopathy, thyroid symmetric and of normal size HEART: RRR with normal S1 and S2, no murmurs, no gallops, no JVD appreciated CHEST: non-tender LUNG: Diminished breath sounds without obvious rales or rhonchi. ABDOMEN: Bowel sounds normoactive, no bruits, soft, non-tender, without organomegaly or palpable masses EXTREMITIES: Extremities warm and well perfused without clubbing, cyanosis, or edema. There is a lot of fatty tissue in the lower extremities. NEURO: Awake, alert and oriented x 3, no gross focal abnormalities PSYCH: Appropriate, calm SKIN: Skin color, texture, turgor normal. No rashes or lesions. LABS: Results from last 7 days Lab Units 12/06/24 0616 12/05/24 0619 12/04/24 0608 SODIUM mmol/L 139 139 140 POTASSIUM mmol/L 4.4 4.8 4.7 CHLORIDE mmol/L 97 96 100 CO2 mmol/L 39* 41* 39* BUN mg/dL 34* 32* 30* CREATININE mg/dL 1.40* 1.35* 1.25* EGFR mL/min/1.73m2 42* 44* 48* Results from last 7 days Lab Units 12/01/24 1012 HIGH SENSITIVITY TROPONIN I ng/L 7 Results from last 7 days Lab Units 12/06/24 0616 12/05/24 0618 12/04/24 0608 WBC AUTO K/mcL 18.2* 16.7* 19.1* HEMOGLOBIN g/dL 9.4* 9.2* 9.1* PLATELETS K/mcL 442* 340 340 Results from last 7 days Lab Units 12/01/24 1457 BNP pcg/mL 542* PROTIME sec 19.8* INR 1.6 Results from last 7 days Lab Units 12/01/24 1006 COVID-19 Detected* No results found for: CHOL , HDL , LDL , LDLCALC , TRIG No results found for: HGBA1C Lab Results Component Value Date BLOODCX No growth at 2 days 12/01/2024 Electrocardiogram: Encounter Date: 12/01/24 ECG 12 lead Result Value Ventricular Rate ECG 101 Atrial Rate 125 QRS Duration 142 Q-T Interval 390 QTc 505 R Prague 79 T Prague 33 ECG Interpretation Atrial fibrillation with rapid ventricular response Right bundle branch block Abnormal ECG When compared with ECG of 01-DEC-2024 09:55, No significant change was found Confirmed by FLORENTIN VANEGAS ([id number]) on 12/04/2024 4:35:43 PM *Note: Due to a large number of results and/or encounters for the requested time period, some results have not been displayed. A complete set of results can be found in Results Review. CARDIOVASCULAR TESTING Last Echocardiogram 12/01/24 TRANSTHORACIC ECHOCARDIOGRAM (TTE) COMPLETE (CONTRAST/BUBBLE/3D PRN) 12/05/2024 12/05/2024 Interpretation Summary ??? Left ventricle cavity size is normal. No regional LV wall motion abnormalities noted. Left ventricular systolic function is in the normal range with an ejection fraction of 60-65%. ??? Right ventricle cavity is normal. Right ventricular systolic function is normal. ??? Mitral Valve: There is mild-moderate regurgitation. ??? Trivial pericardial effusion. Signed by: Wilbert Werner MD on 12/05/2024 11:31 AM Last Stress Test No results found for this or any previous visit. Last Heart Catheterization No results found for this or any previous visit. Thank you for allowing us to participate in this consultation. Please feel free to contact us with questions or concerns. We will continue to follow while inpatient.. 30 minutes minutes was spent reviewing the medical record, imaging, labs, and seeing the patient which included explaining relevant diagnosis, providing patient education, discussing treatment options, in addition to documenting in the record. Also texted with her primary tennis racket repairer [facility] [address] [place] [address], [address] [place] [address] documented in this encounter Plan of Treatment Upcoming Encounters Date Type Department Care Team (Late st Contact Info) Description 12/20/2024 9:00 AM EST Appointment [facility]cology [address] [place] [phone] 12/21/2024 9:00 AM EST Appointment [facility] [address] [place] [phone] 12/22/2024 9:00 AM EST Appointment [facility] [address] [place] [phone] 12/22/2024 9:10 AM EST Appointment [facility] [address] [place] [phone] Radha Bourgeois MD [address] [place] [phone] 12/25/2024 9:00 AM EST Appointment [facility] [address] [place] [phone] 12/26/2024 9:00 AM EST Appointment [facility] [address] [place] [phone] 12/27/2024 9:00 AM EST Appointment [facility] [address] [place] [phone] 12/28/2024 9:00 AM EST Appointment [facility] [address] [place] [phone] 12/29/2024 9:00 AM EST Appointment [facility] [address] [place] [phone] 12/29/2024 9:10 AM EST Appointment [facility] [address] [place] [phone] Radha Bourgeois MD [address] [place] [phone] 01/01/2025 9:00 AM EST Appointment [facility] [address] [phone] 01/02/2025 9:00 AM EST Appointment [facility] [address] [place] [phone] 01/03/2025 9:00 AM EST Appointment [facility] [address] [place] [phone] 01/04/2025 9:00 AM EST Appointment [facility] [address] [place] [phone] 01/05/2025 9:00 AM EST Appointment [facility] [address] [place] [phone] 01/05/2025 9:10 AM EST Appointment [facility] [address] [place] [phone] Radha Bourgeois MD [address] [place] [phone] 01/08/2025 9:00 AM EST Appointment [facility] [address] [place] [phone] documented as of this encounter Procedures Procedure Name Priority Date/Time Associated Diagnosis Comments CBC WITH AUTO DIFFERENTIAL Routine 12/07/2024 6:02 AM EST CBC AND DIFFERENTIAL Routine 12/07/2024 6:02 AM EST FOLATE Add-On 12/07/2024 6:02 AM EST VITAMIN B12 Add-On 12/07/2024 6:02 AM EST BASIC METABOLIC PANEL Routine 12/07/2024 6:02 AM EST PEP THERAPY Routine 12/06/2024 8:02 AM EST CBC WITH AUTO DIFFERENTIAL Routine 12/06/2024 6:16 AM EST CBC AND DIFFERENTIAL Routine 12/06/2024 6:16 AM EST BASIC METABOLIC PANEL Routine 12/06/2024 6:16 AM EST PEP THERAPY [...] AUTO DIFFERENTIAL Routine 12/04/2024 6:08 AM EST CBC AND DIFFERENTIAL Routine 12/04/2024 6:08 AM EST BASIC METABOLIC PANEL Routine 12/04/2024 6:08 AM EST XR CHEST 1 VIEW Routine 12/03/2024 7:33 PM EST ECG 12-LEAD Routine 12/03/2024 7:00 PM EST CBC WITH AUTO DIFFERENTIAL Routine 12/03/2024 6:52 AM EST CBC AND DIFFERENTIAL Routine 12/03/2024 6:52 AM EST BASIC METABOLIC PANEL Routine 12/03/2024 6:52 AM EST PROCALCITONIN Add-On 12/02/2024 9:18 AM EST THYROID STIMULATING HORMONE Add-On 12/02/2024 9:18 AM EST LACTATE Routine 12/02/2024 9:18 AM EST CBC WITH AUTO DIFFERENTIAL Routine 12/02/2024 6:24 AM EST CBC AND DIFFERENTIAL Routine 12/02/2024 6:24 AM EST BASIC METABOLIC PANEL Routine 12/02/2024 6:23 AM EST CULTURE BLOOD STAT 12/01/2024 4:05 PM EST LACTATE Routine 12/01/2024 4:05 PM EST CULTURE BLOOD STAT 12/01/2024 3:47 PM EST PROTHROMBIN TIME WITH INR Routine 12/01/2024 2:57 PM EST B-TYPE NATRIURETIC PEPTIDE Routine 12/01/2024 2:[address] ANGIO CHEST WO AND/OR W CONTRAST STAT 12/01/2024 11:25 AM EST COVID TROPONIN I HIGH SENSITIVITY STAT 12/01/2024 10:12 AM EST VITAMIN B12 AND FOLATE Add-On 10:12 AM EST MANUAL DIFFERENTIAL - SYSMEX WAM STAT 12/01/2024 10:12 AM EST CBC WITH AUTO DIFFERENTIAL STAT 12/01/2024 10:12 AM EST IRON AND TIBC Add-On 12/01/2024 10:12 AM EST CBC AND DIFFERENTIAL STAT 12/01/2024 10:12 AM EST MAGNESIUM Add-On 12/01/2024 10:12 AM EST FERRITIN Add-On 12/01/2024 10:12 AM EST HEPATIC FUNCTION PANEL Add-On 10:12 AM EST BASIC METABOLIC PANEL STAT 12/01/2024 10:12 AM EST RESPIRATORY VIRUS PANEL MOLECULAR STUDY STAT 12/01/2024 10:06 AM EST ECG 12-LEAD STAT 12/01/2024 9:55 AM EST ECG OUTSIDE 12/01/2024 ECG OUTSIDE 12/01/2024 ECG ANNOTATED 12/01/2024 documented in this encounter Results * Folate (12/07/2024 6:02 AM EST) Folate 13.9 2.8 - 17.0 ng/ml LAB CHEMISTRY METHOD 12/07/2024 9:35 AM EST [facility] Blood Venous blood specimen / Unknown Venipuncture / Unknown 12/07/2024 6:02 AM EST 12/07/2024 6:49 AM EST Nuria Marie MD LAB BLOOD ORDERABLE S Performing Organization Address City/[facility]/ZIP Co de Phone Number [facility] [address] [place] [address], [place] [phone] * Vitamin B12 (12/07/2024 6:02 AM EST) Pathologist [facility] Vitamin B-12 698 250 - 900 pcg/mL LAB CHEMISTRY METHOD 12/07/2024 9:59 AM EST [facility] Blood Venous blood specimen / Unknown Venipuncture / Unknown 12/07/2024 6:02 AM EST 12/07/2024 6:49 AM EST Nuria Marie MD LAB BLOOD ORDERABLE S [facility] [address] [place] [address], [place] [phone] * (ABNORMAL) CBC auto differential (12/07/2024 6:02 AM EST) [facility] WBC 15.5(H) 4.8 - 10.8 K/mcL LAB HEMETOLOGY METHOD 12/07/2024 7:21 AM [facility] RBC 3.30(L) 3.80 - 4.80 M/mcL LAB HEMETOLOGY METHOD 12/07/2024 7:21 AM [facility] Hemoglobin 9.3(L) 11.5 - 16.0 g/dL LAB HEMETOLOGY METHOD 12/07/2024 7:21 AM [facility] Hematocrit 32.0(L) 35.0 - 47.0 % LAB HEMETOLOGY METHOD 12/07/2024 7:21 AM [facility] MCV 97.6 79.0 - 98.0 FL LAB HEMETOLOGY METHOD 12/07/2024 7:21 AM [facility] MCH 28.4 27.0 - 32.0 pcg LAB HEMETOLOGY METHOD 12/07/2024 7:21 AM [facility] MCHC 29.1(L) 32.0 - 37.0 g/dL LAB HEMETOLOGY METHOD 12/07/2024 7:21 AM [facility] RDW 18.9(H) 11.0 - 15.0 % LAB HEMETOLOGY METHOD 12/07/2024 7:21 AM [facility] Platelets 390 130 - 400 K/mcL LAB HEMETOLOGY METHOD 12/07/2024 7:21 AM [facility] MPV 10.0 7.0 - 11.0 FL LAB HEMETOLOGY METHOD 12/07/2024 7:21 AM [facility] NRBC 0.5 <1.0 % LAB HEMETOLOGY METHOD 12/07/2024 7:21 AM [facility] NRBC Absolute 0.07 <0.10 K/mcL LAB HEMETOLOGY METHOD 12/07/2024 7:21 AM [facility] Neutrophils Relative 74.5 % LAB HEMETOLOGY METHOD 12/07/2024 7:21 AM [facility] Lymphocytes Relative 13.6 % LAB HEMETOLOGY METHOD 12/07/2024 7:21 AM [facility] Monocytes Relative 7.6 % LAB HEMETOLOGY METHOD 12/07/2024 7:21 AM [facility] Eosinophils Relative 0.0 % LAB HEMETOLOGY METHOD 12/07/2024 7:21 AM [facility] Basophils Relative 0.4 % LAB HEMETOLOGY METHOD 12/07/2024 7:21 AM [facility] Immature Granulocytes Relative 3.9 % LAB HEMETOLOGY METHOD 12/07/2024 7:21 AM [facility] Neutrophils Absolute 11.53(H) 1.50 - 7.00 K/mcL LAB HEMETOLOGY METHOD 12/07/2024 7:21 AM [facility] Lymphocytes Absolute 2.10 1.00 - 5.00 K/mcL LAB HEMETOLOGY METHOD 12/07/2024 7:21 AM [facility] Monocytes Absolute 1.18(H) 0.20 - 1.00 K/mcL LAB HEMETOLOGY METHOD 12/07/2024 7:21 AM [facility] Eosinophils Absolute 0.00 0.00 - 0.50 K/mcL LAB HEMETOLOGY METHOD 12/07/2024 7:21 AM [facility] Basophils Absolute 0.06 0.00 - 0.20 K/mcL LAB HEMETOLOGY METHOD 12/07/2024 7:21 AM [facility] Immature Granulocytes Absolute 0.60(H) 0.00 - 0.03 K/mcL LAB HEMETOLOGY METHOD 12/07/2024 7:21 AM [facility] Blood Venous blood specimen / Unknown Venipuncture / Unknown 12/07/2024 6:02 AM EST 12/07/2024 6:51 AM EST Milagro WEBBER LAB BLOOD ORDERABLE S [facility] [address] [place] [address], * (ABNORMAL) Basic metabolic panel (12/07/2024 6:02 AM EST) Sodium 139 133 - 145 mmol/L LAB CHEMISTRY METHOD 12/07/2024 7:57 AM [facility] Potassium 4.5 3.5 - 5.5 mmol/L LAB CHEMISTRY METHOD 12/07/2024 7:57 AM [facility] Chloride 96 96 - 110 mmol/L LAB CHEMISTRY METHOD 12/07/2024 7:57 AM [facility] CO2 38(H) 21 - 32 mmol/L LAB CHEMISTRY METHOD 12/07/2024 7:57 AM [facility] Anion Gap 5 3 - 11 LAB CHEMISTRY METHOD 12/07/2024 7:57 AM [facility] Glucose 153(H) 70 - 100 mg/dL LAB CHEMISTRY METHOD 12/07/2024 7:57 AM [facility] BUN 31(H) 5 - 25 mg/dL LAB CHEMISTRY METHOD 12/07/2024 7:57 AM [facility] Creatinine 1.22(H) 0.50 - 1.10 mg/dL LAB CHEMISTRY METHOD 12/07/2024 7:57 AM [facility] eGFR 50(L) >=60 mL/min/1. 73m2 LAB CHEMISTRY METHOD 12/07/2024 7:57 AM [facility] Comment:Calculation based on the??Chronic Kidney Disease Epidemiology Collaboration (CKD-EPI) equation refit??without adjustment for race. BUN/Creatinine Ratio 25.4 LAB CHEMISTRY METHOD 12/07/2024 7:57 AM [facility] Calcium 8.7 8.5 - 10.5 mg/dL LAB CHEMISTRY METHOD 12/07/2024 7:57 AM [facility] Blood Venous blood specimen / Unknown Venipuncture / Unknown 12/07/2024 6:02 AM EST 12/07/2024 6:49 AM EST Milagro WEBBER LAB BLOOD ORDERABLE S [facility] [address] [place] [address], * (ABNORMAL) CBC auto differential (12/06/2024 6:16 AM EST) WBC 18.2(H) 4.8 - 10.8 K/mcL LAB HEMETOLOGY METHOD 12/06/2024 8:04 AM [facility] RBC 3.30(L) 3.80 - 4.80 M/mcL LAB HEMETOLOGY METHOD 12/06/2024 8:04 AM [facility] Hemoglobin 9.4(L) 11.5 - 16.0 g/dL LAB HEMETOLOGY METHOD 12/06/2024 8:04 AM [facility] Hematocrit 32.9(L) 35.0 - 47.0 % LAB HEMETOLOGY METHOD 12/06/2024 8:04 AM [facility] MCV 98.5(H) 79.0 - 98.0 FL LAB HEMETOLOGY METHOD 12/06/2024 8:04 AM [facility] MCH 28.1 27.0 - 32.0 pcg LAB HEMETOLOGY METHOD 12/06/2024 8:04 AM [facility] MCHC 28.6(L) 32.0 - 37.0 g/dL LAB HEMETOLOGY METHOD 12/06/2024 8:04 AM [facility] RDW 19.1(H) 11.0 - 15.0 % LAB HEMETOLOGY METHOD 12/06/2024 8:04 AM [facility] Platelets 442(H) 130 - 400 K/mcL LAB HEMETOLOGY METHOD 12/06/2024 8:04 AM [facility] MPV 10.1 7.0 - 11.0 FL LAB HEMETOLOGY METHOD 12/06/2024 8:04 AM [facility] NRBC 0.2 <1.0 % LAB HEMETOLOGY METHOD 12/06/2024 8:04 AM [facility] NRBC Absolute 0.04 <0.10 K/mcL LAB HEMETOLOGY METHOD 12/06/2024 8:04 AM [facility] Neutrophils Relative 79.2 % LAB HEMETOLOGY METHOD 12/06/2024 8:04 AM [facility] Lymphocytes Relative 11.2 % LAB HEMETOLOGY METHOD 12/06/2024 8:04 AM [facility] Monocytes Relative 8.1 % LAB HEMETOLOGY METHOD 12/06/2024 8:04 AM [facility] Eosinophils Relative 0.0 % LAB HEMETOLOGY METHOD 12/06/2024 8:04 AM [facility] Basophils Relative 0.3 % LAB HEMETOLOGY METHOD 12/06/2024 8:04 AM [facility] Immature Granulocytes Relative 1.2 % LAB HEMETOLOGY METHOD 12/06/2024 8:04 AM [facility] Neutrophils Absolute 14.45(H) 1.50 - 7.00 K/mcL LAB HEMETOLOGY METHOD 12/06/2024 8:04 AM [facility] Lymphocytes Absolute 2.05 1.00 - 5.00 K/mcL LAB HEMETOLOGY METHOD 12/06/2024 8:04 AM [facility] Monocytes Absolute 1.48(H) 0.20 - 1.00 K/[facility] LAB HEMETOLOGY METHOD 12/06/2024 8:04 AM [facility] Eosinophils Absolute 0.00 0.00 - 0.50 K/[facility] LAB HEMETOLOGY METHOD 12/06/2024 8:04 AM [facility] Basophils Absolute 0.05 0.00 - 0.20 K/[facility] HEMETOLOGY METHOD 12/06/2024 8:04 AM [facility] Immature Granulocytes Absolute 0.21(H) 0.00 - 0.03 K/[facility] HEMETOLOGY METHOD 12/06/2024 8:04 AM [facility] Blood Venous blood specimen / Unknown Venipuncture / Unknown 12/06/2024 6:16 AM EST 12/06/2024 7:16 AM EST Milagro WEBBER LAB BLOOD ORDERABLE S [facility] [address] [place] [address], * (ABNORMAL) Basic metabolic panel (12/06/2024 6:16 AM EST) Sodium 139 133 - 145 mmol/L LAB CHEMISTRY METHOD 12/06/2024 8:32 AM [facility] Potassium 4.4 3.5 - 5.5 mmol/L LAB CHEMISTRY METHOD 12/06/2024 8:32 AM [facility] Chloride 97 96 - 110 mmol/L LAB CHEMISTRY METHOD 12/06/2024 8:32 AM [facility] CO2 39(H) 21 - 32 mmol/L LAB CHEMISTRY METHOD 12/06/2024 8:32 AM [facility] Anion Gap 3 3 - 11 LAB CHEMISTRY METHOD 12/06/2024 8:32 AM [facility] Glucose 125(H) 70 - 100 mg/dL LAB CHEMISTRY METHOD 12/06/2024 8:32 AM EST [facility] BUN 34(H) 5 - 25 mg/dL LAB CHEMISTRY METHOD 12/06/2024 8:32 AM [facility] Creatinine 1.40(H) 0.50 - 1.10 mg/dL LAB CHEMISTRY METHOD 12/06/2024 8:32 AM EST [facility] eGFR 42(L) >=60 mL/min/1. 73m2 LAB CHEMISTRY METHOD 12/06/2024 8:32 AM [facility] Comment:Calculation based on the??Chronic Kidney Disease Epidemiology Collaboration (CKD-EPI) equation refit??without adjustment for race. BUN/Creatinine Ratio 24.3 LAB CHEMISTRY METHOD 12/06/2024 8:32 AM [facility] Calcium 8.4(L) 8.5 - 10.5 mg/dL LAB CHEMISTRY METHOD 12/06/2024 8:32 AM [facility] Blood Venous blood specimen / Unknown Venipuncture / Unknown 12/06/2024 6:16 AM EST 12/06/2024 7:16 AM EST Milagro WEBBER LAB BLOOD ORDERABLE S [facility] [address] [place] [address], * TRANSTHORACIC ECHOCARDIOGRAM (TTE) COMPLETE W/ CONTRAST (12/05/2024 11:01 AM EST) Left Atrium Minor [place] 5.6 cm CV PACS Left Atrium Major [place] 5.5 cm CV PACS LA Area Sys [...] PROCEDURES * Magnesium (12/05/2024 6:19 AM EST) Pathologist [facility] Magnesium 1.9 1.9 - 2.6 mg/dL LAB CHEMISTRY METHOD 12/05/2024 7:40 AM [facility] Blood Venous blood specimen / Unknown Venipuncture / Unknown 12/05/2024 6:19 AM EST 12/05/2024 6:59 AM EST [facility] LAB BLOOD ORDERABLE S [facility] [address] [place] [address], * (ABNORMAL) Basic metabolic panel (12/05/2024 6:19 AM EST) [facility] Sodium 139 133 - 145 mmol/L LAB CHEMISTRY METHOD 12/05/2024 8:10 AM [facility] Potassium 4.8 3.5 - 5.5 mmol/L LAB CHEMISTRY METHOD 12/05/2024 8:10 AM [facility] [facility] Chloride 96 96 - 110 mmol/L LAB CHEMISTRY METHOD 12/05/2024 8:10 AM [facility] CO2 41(HH) 21 - 32 mmol/L LAB CHEMISTRY METHOD 12/05/2024 8:10 AM [facility] Anion Gap 2(L) 3 - 11 LAB CHEMISTRY METHOD 12/05/2024 8:10 AM [facility] Glucose 139(H) 70 - 100 mg/dL LAB CHEMISTRY METHOD 12/05/2024 8:10 AM [facility] BUN 32(H) 5 - 25 mg/dL LAB CHEMISTRY METHOD 12/05/2024 8:10 AM [facility] Creatinine 1.35(H) 0.50 - 1.10 mg/dL LAB CHEMISTRY METHOD 12/05/2024 8:10 AM EST [facility] eGFR 44(L) >=60 mL/min/1. 73m2 LAB CHEMISTRY METHOD 12/05/2024 8:10 AM [facility] Comment:Calculation based on the??Chronic Kidney Disease Epidemiology Collaboration (CKD-EPI) equation refit??without adjustment for race. BUN/Creatinine Ratio 23.7 LAB CHEMISTRY METHOD 12/05/2024 8:10 AM [facility] Calcium 7.9(L) 8.5 - 10.5 mg/dL LAB CHEMISTRY METHOD 12/05/2024 8:10 AM [facility] Blood Venous blood specimen / Unknown Venipuncture / Unknown 12/05/2024 6:19 AM EST 12/05/2024 6:59 AM EST Milagro WEBBER LAB BLOOD ORDERABLE S [facility] [address] [place] [address], * (ABNORMAL) CBC auto differential (12/05/2024 6:18 AM EST) WBC 16.7(H) 4.8 - 10.8 K/mcL LAB HEMETOLOGY METHOD 12/05/2024 7:23 AM [facility] RBC 3.30(L) 3.80 - 4.80 M/mcL LAB HEMETOLOGY METHOD 12/05/2024 7:23 AM [facility] Hemoglobin 9.2(L) 11.5 - 16.0 g/dL LAB HEMETOLOGY METHOD 12/05/2024 7:23 AM [facility] Hematocrit 31.7(L) 35.0 - 47.0 % LAB HEMETOLOGY METHOD 12/05/2024 7:23 AM [facility] MCV 97.5 79.0 - 98.0 FL LAB HEMETOLOGY METHOD 12/05/2024 7:23 AM [facility] MCH 28.3 27.0 - 32.0 pcg LAB HEMETOLOGY METHOD 12/05/2024 7:23 AM [facility] MCHC 29.0(L) 32.0 - 37.0 g/dL LAB HEMETOLOGY METHOD 12/05/2024 7:23 AM [facility] RDW 19.3(H) 11.0 - 15.0 % LAB HEMETOLOGY METHOD 12/05/2024 7:23 AM [facility] Platelets 340 130 - 400 K/mcL LAB HEMETOLOGY METHOD 12/05/2024 7:23 AM [facility] MPV 9.9 7.0 - 11.0 FL LAB HEMETOLOGY METHOD 12/05/2024 7:23 AM [facility] NRBC 0.0 <1.0 % LAB HEMETOLOGY METHOD 12/05/2024 7:23 AM [facility] NRBC Absolute 0.00 <0.10 K/mcL LAB HEMETOLOGY METHOD 12/05/2024 7:23 AM [facility] Neutrophils Relative 81.0 % LAB HEMETOLOGY METHOD 12/05/2024 7:23 AM [facility] Lymphocytes Relative 10.3 % LAB HEMETOLOGY METHOD 12/05/2024 7:23 AM [facility] Monocytes Relative 7.7 % LAB HEMETOLOGY METHOD 12/05/2024 7:23 AM [facility] Eosinophils Relative 0.0 % LAB HEMETOLOGY METHOD 12/05/2024 7:23 AM [facility] Basophils Relative 0.2 % LAB HEMETOLOGY METHOD 12/05/2024 7:23 AM [facility] Immature Granulocytes Relative 0.8 % LAB HEMETOLOGY METHOD 12/05/2024 7:23 AM [facility] Neutrophils Absolute 13.55(H) 1.50 - 7.00 K/[facility] LAB HEMETOLOGY METHOD 12/05/2024 7:23 AM EST [facility] Lymphocytes Absolute 1.72 1.00 - 5.00 K/mcL LAB HEMETOLOGY METHOD 12/05/2024 7:23 AM EST [facility] Monocytes Absolute 1.29(H) 0.20 - 1.00 K/mcL LAB HEMETOLOGY METHOD 12/05/2024 7:23 AM EST [facility] Eosinophils Absolute 0.00 0.00 - 0.50 K/mcL LAB HEMETOLOGY METHOD 12/05/2024 7:23 AM [facility] Basophils Absolute 0.03 0.00 - 0.20 K/mcL LAB HEMETOLOGY METHOD 12/05/2024 7:23 AM [facility] Immature Granulocytes Absolute 0.13(H) 0.00 - 0.03 K/[facility] LAB HEMETOLOGY METHOD 12/05/2024 7:23 AM [facility] Blood Venous blood specimen / Unknown Venipuncture / Unknown 12/05/2024 6:18 AM EST 12/05/2024 6:58 AM EST Milagro WEBBER LAB BLOOD ORDERABLE S [facility] [address] [place] [address], * (ABNORMAL) CBC auto differential (12/04/2024 6:08 AM EST) WBC 19.1(H) 4.8 - 10.8 K/mcL LAB HEMETOLOGY METHOD 12/04/2024 7:26 AM EST [facility] RBC 3.20(L) 3.80 - 4.80 M/mcL LAB HEMETOLOGY METHOD 12/04/2024 7:26 AM EST [facility] Hemoglobin 9.1(L) 11.5 - 16.0 g/dL LAB HEMETOLOGY METHOD 12/04/2024 7:26 AM [facility] Hematocrit 31.6(L) 35.0 - 47.0 % LAB HEMETOLOGY METHOD 12/04/2024 7:26 AM [facility] MCV 98.4(H) 79.0 - 98.0 FL LAB HEMETOLOGY METHOD 12/04/2024 7:26 AM [facility] MCH 28.3 27.0 - 32.0 pcg LAB HEMETOLOGY METHOD 12/04/2024 7:26 AM [facility] MCHC 28.8(L) 32.0 - 37.0 g/dL LAB HEMETOLOGY METHOD 12/04/2024 7:26 AM [facility] RDW 19.9(H) 11.0 - 15.0 % LAB HEMETOLOGY METHOD 12/04/2024 7:26 AM [facility] Platelets 340 130 - 400 K/mcL LAB HEMETOLOGY METHOD 12/04/2024 7:26 AM [facility] MPV 10.1 7.0 - 11.0 FL LAB HEMETOLOGY METHOD 12/04/2024 7:26 AM [facility] NRBC 0.1 <1.0 % LAB HEMETOLOGY METHOD 12/04/2024 7:26 AM [facility] NRBC Absolute 0.02 <0.10 K/mcL LAB HEMETOLOGY METHOD 12/04/2024 7:26 AM [facility] Neutrophils Relative 80.7 % LAB HEMETOLOGY METHOD 12/04/2024 7:26 AM [facility] Lymphocytes Relative 9.8 % LAB HEMETOLOGY METHOD 12/04/2024 7:26 AM [facility] Monocytes Relative 8.1 % LAB HEMETOLOGY METHOD 12/04/2024 7:26 AM [facility] Eosinophils Relative 0.3 % LAB HEMETOLOGY METHOD 12/04/2024 7:26 AM [facility] Basophils Relative 0.2 % LAB HEMETOLOGY METHOD 12/04/2024 7:26 AM [facility] Immature Granulocytes Relative 0.9 % LAB HEMETOLOGY METHOD 12/04/2024 7:26 AM [facility] Neutrophils Absolute 15.40(H) 1.50 - 7.00 K/mcL LAB HEMETOLOGY METHOD 12/04/2024 7:26 AM [facility] Lymphocytes Absolute 1.88 1.00 - 5.00 K/mcL LAB HEMETOLOGY METHOD 12/04/2024 7:26 AM [facility] Monocytes Absolute 1.54(H) 0.20 - 1.00 K/mcL LAB HEMETOLOGY METHOD 12/04/2024 7:26 AM [facility] Eosinophils Absolute 0.06 0.00 - 0.50 K/mcL LAB HEMETOLOGY METHOD 12/04/2024 7:26 AM [facility] Basophils Absolute 0.03 0.00 - 0.20 K/mcL LAB HEMETOLOGY METHOD 12/04/2024 7:26 AM [facility] Immature Granulocytes Absolute 0.18(H) 0.00 - 0.03 K/mcL LAB HEMETOLOGY METHOD 12/04/2024 7:26 AM [facility] Blood Venous blood specimen / Unknown Venipuncture / Unknown 12/04/2024 6:08 AM EST 12/04/2024 7:10 AM EST Raheel WEBBER LAB BLOOD ORDERAB LES [facility] [address] [place] [address], * (ABNORMAL) Basic metabolic panel (12/04/2024 6:08 AM EST) Sodium 140 133 - 145 mmol/L LAB CHEMISTRY METHOD 12/04/2024 8:14 AM [facility] Potassium 4.7 3.5 - 5.5 mmol/L LAB CHEMISTRY METHOD 12/04/2024 8:14 AM [facility] Chloride 100 96 - 110 mmol/L LAB CHEMISTRY METHOD 12/04/2024 8:14 AM [facility] CO2 39(H) 21 - 32 mmol/L LAB CHEMISTRY METHOD 12/04/2024 8:14 AM [facility] Anion Gap 1(L) 3 - 11 LAB CHEMISTRY METHOD 12/04/2024 8:14 AM [facility] Glucose 134(H) 70 - 100 mg/dL LAB CHEMISTRY METHOD 12/04/2024 8:14 AM [facility] BUN 30(H) 5 - 25 mg/dL LAB CHEMISTRY METHOD 12/04/2024 8:14 AM [facility] Creatinine 1.25(H) 0.50 - 1.10 mg/dL LAB CHEMISTRY METHOD 12/04/2024 8:14 AM [facility] eGFR 48(L) >=60 mL/min/1. 73m2 LAB CHEMISTRY METHOD 12/04/2024 8:14 AM [facility] Comment:Calculation based on the??Chronic Kidney Disease Epidemiology Collaboration (CKD-EPI) equation refit??without adjustment for race. BUN/Creatinine Ratio 24.0 LAB CHEMISTRY METHOD 12/04/2024 8:14 AM [facility] Calcium 8.8 8.5 - 10.5 mg/dL LAB CHEMISTRY METHOD 12/04/2024 8:14 AM [facility] Blood Venous blood specimen / Unknown Venipuncture / Unknown 12/04/2024 6:08 AM EST 12/04/2024 7:07 AM EST Raheel WEBBER LAB BLOOD ORDERAB LES [facility] [address] [place] [address], [place] [phone] * XR Chest 1 View (12/03/2024 7:33 PM EST) Anatomical Region Laterality Modality Body Radiographic Dahiana ging 12/04/2024 9:28 AM EST Impressions 12/04/2024 9:32 AM EST Impression: 1. Stable right hemidiaphragmatic elevation since 2019. 2. Lungs grossly clear. Telerad AKBAR ([id number]) -------- FINAL REPORT -------- Dictated By: Keiko Dyson Dictated Date: 12/04/2024 09:28 ET Assigned Physician: Keiko Dyson Reviewed and Electronically Signed By: Keiko Dyson Signed Date: 12/04/2024 09:32 ET Workstation ID: [id number] Transcribed By: Self Edit Transcribed Date: 12/04/2024 [...] PM. Right hemidiaphragmatic elevation issimilar to the 2020 exam. The cardiac silhouette is mildly enlarged. Hilarcontours and pulmonary vascularity are within normal limits. The lungs aregrossly clear. No sizable pleural fluid collection is seen. IMPRESSION: Impression: 1. Stable right hemidiaphragmatic elevation since 2019. 2. Lungs grossly clear. Cal WEBBER ([id number]) -------- FINAL REPORT -------- Dictated By: Keiko Dyson Dictated Date: 12/04/2024 09:28 ET Assigned Physician: Keiko Dyson Reviewed and Electronically Signed By: Keiko Dyson Signed Date: 12/04/2024 09:32 ET Workstation ID: [id number] Transcribed By: Self Edit Transcribed Date: 12/04/2024 09:28 ET Angelic WEBBER IMG XR PROCEDURES * ECG 12 lead (12/03/2024 7:00 PM EST) Ventricular Rate ECG 101 BPM GEMUSE Atrial Rate 125 BPM GEMUSE QRS Duration 142 ms GEMUSE Q-T Interval 390 ms GEMUSE QTc 505 ms GEMUSE R [place] 79 degrees GEMUSE T [place] 33 degrees GEMUSE ECG Interpretation Atrial fibrillation with rapid ventricular response Right bundle branch block Abnormal ECG When compared with ECG of 01-DEC-2024 09:55, No significant change was found Confirmed by FLORENTIN VANEGAS ([id number]) on 12/04/2024 4:35:43 PM GEMUSE 12/03/2024 7:00 PM EST 12/04/2024 4:35 PM EST Raheel WEBBER ECG ORDERABLES GEMUSE * (ABNORMAL) CBC auto differential (12/03/2024 6:52 AM EST) WBC 15.6(H) 4.8 - 10.8 K/[facility] HEMETOLOGY METHOD 12/03/2024 7:59 AM EST [facility] RBC 2.90(L) 3.80 - 4.80 M/[facility] LAB HEMETOLOGY METHOD 12/03/2024 7:59 AM EST [facility] Hemoglobin 8.3(L) 11.5 - 16.0 g/dL LAB HEMETOLOGY METHOD 12/03/2024 7:59 AM [facility] Hematocrit 28.9(L) 35.0 - 47.0 % LAB HEMETOLOGY METHOD 12/03/2024 7:59 AM [facility] MCV 99.0(H) 79.0 - 98.0 FL LAB HEMETOLOGY METHOD 12/03/2024 7:59 AM [facility] MCH 28.4 27.0 - 32.0 pcg LAB HEMETOLOGY METHOD 12/03/2024 7:59 AM [facility] MCHC 28.7(L) 32.0 - 37.0 g/dL LAB HEMETOLOGY METHOD 12/03/2024 7:59 AM [facility] RDW 19.9(H) 11.0 - 15.0 % LAB HEMETOLOGY METHOD 12/03/2024 7:59 AM [facility] Platelets 253 130 - 400 K/mcL LAB HEMETOLOGY METHOD 12/03/2024 7:59 AM [facility] MPV 10.1 7.0 - 11.0 FL LAB HEMETOLOGY METHOD 12/03/2024 7:59 AM [facility] NRBC 0.0 <1.0 % LAB HEMETOLOGY METHOD 12/03/2024 7:59 AM [facility] NRBC Absolute 0.00 <0.10 K/mcL LAB HEMETOLOGY METHOD 12/03/2024 7:59 AM [facility] Neutrophils Relative 81.6 % LAB HEMETOLOGY METHOD 12/03/2024 7:59 AM [facility] Lymphocytes Relative 9.1 % LAB HEMETOLOGY METHOD 12/03/2024 7:59 AM [facility] Monocytes Relative 8.2 % LAB HEMETOLOGY METHOD 12/03/2024 7:59 AM [facility] Eosinophils Relative 0.0 % LAB HEMETOLOGY METHOD 12/03/2024 7:59 AM [facility] Basophils Relative 0.1 % LAB HEMETOLOGY METHOD 12/03/2024 7:59 AM [facility] Immature Granulocytes Relative 1.0 % LAB HEMETOLOGY METHOD 12/03/2024 7:59 AM [facility] Neutrophils Absolute 12.72(H) 1.50 - 7.00 K/mcL LAB HEMETOLOGY METHOD 12/03/2024 7:59 AM [facility] Lymphocytes Absolute 1.42 1.00 - 5.00 K/mcL LAB HEMETOLOGY METHOD 12/03/2024 7:59 AM [facility] Monocytes Absolute 1.27(H) 0.20 - 1.00 K/mcL LAB HEMETOLOGY METHOD 12/03/2024 7:59 AM [facility] Eosinophils Absolute 0.00 0.00 - 0.50 K/mcL LAB HEMETOLOGY METHOD 12/03/2024 7:59 AM [facility] Basophils Absolute 0.02 0.00 - 0.20 K/mcL LAB HEMETOLOGY METHOD 12/03/2024 7:59 AM [facility] Immature Granulocytes Absolute 0.15(H) 0.00 - 0.03 K/mcL LAB HEMETOLOGY METHOD 12/03/2024 7:59 AM [facility] Blood Venous blood specimen / Unknown Venipuncture / Unknown 12/03/2024 6:52 AM EST 12/03/2024 7:27 AM EST Raheel WEBBER LAB BLOOD ORDERAB LES [facility] [address] [place] [address], * (ABNORMAL) Basic metabolic panel (12/03/2024 6:52 AM EST) Sodium 141 133 - 145 mmol/L LAB CHEMISTRY METHOD 12/03/2024 8:12 AM [facility] Potassium 4.2 3.5 - 5.5 mmol/L LAB CHEMISTRY METHOD 12/03/2024 8:12 AM [facility] Chloride 102 96 - 110 mmol/L LAB CHEMISTRY METHOD 12/03/2024 8:12 AM [facility] CO2 37(H) 21 - 32 mmol/L LAB CHEMISTRY METHOD 12/03/2024 8:12 AM [facility] Anion Gap 2(L) 3 - 11 LAB CHEMISTRY METHOD 12/03/2024 8:12 AM [facility] Glucose 127(H) 70 - 100 mg/dL LAB CHEMISTRY METHOD 12/03/2024 8:12 AM [facility] BUN 23 5 - 25 mg/dL LAB CHEMISTRY METHOD 12/03/2024 8:12 AM [facility] Creatinine 1.15(H) 0.50 - 1.10 mg/dL LAB CHEMISTRY METHOD 12/03/2024 8:12 AM [facility] eGFR 53(L) >=60 mL/min/1. 73m2 LAB CHEMISTRY METHOD 12/03/2024 8:12 AM [facility] Comment:Calculation based on the??Chronic Kidney Disease Epidemiology Collaboration (CKD-EPI) equation refit??without adjustment for race. BUN/Creatinine Ratio 20.0 LAB CHEMISTRY METHOD 12/03/2024 8:12 AM [facility] Calcium 8.5 8.5 - 10.5 mg/dL LAB CHEMISTRY METHOD 12/03/2024 8:12 AM [facility] Blood Venous blood specimen / Unknown Venipuncture / Unknown 12/03/2024 6:52 AM EST 12/03/2024 7:27 AM EST Raheel Annraymundo WEBBER LAB BLOOD ORDERAB LES Performing Organization Address City/[facility]/ZIP Co de Phone Number [facility] [address] [place] [address], [place] [phone] * Thyroid stimulating hormone (12/02/2024 9:18 AM EST) TSH 1.95 0.40 - 4.00 mcIU/mL LAB CHEMISTRY METHOD 12/02/2024 11:45 AM EST [facility] Blood Venous blood specimen / Unknown Venipuncture / Unknown 12/02/2024 9:18 AM EST 12/02/2024 9:44 AM EST Michellethelma DurantJoaquinAlonzodamir WEBBER LAB BLOOD ORDERAB LES Performing Organization Address [facility] Co de Phone Number [facility] [address] [place] [address], * Lactate (12/02/2024 9:18 AM EST) Lactate 1.4 0.4 - 2.0 mmol/L LAB CHEMISTRY METHOD 12/02/2024 10:08 AM EST [facility] Blood Venous blood specimen / Unknown Venipuncture / Unknown 12/02/2024 9:18 AM EST 12/02/2024 9:45 AM EST Michellethelma VivianamadhaviIsai WEBBER LAB BLOOD ORDERAB LES Performing Organization Address City/[facility]/ZIP Co de Phone Number [facility] [address] [place] [address], [place] [phone] * Procalcitonin (12/02/2024 9:18 AM EST) Procalcitonin 0.08 <=0.16 ng/mL LAB CHEMISTRY METHOD 12/02/2024 10:29 AM EST [facility] Blood Venous blood specimen / Unknown Venipuncture / Unknown 12/02/2024 9:18 AM EST 12/02/2024 9:45 AM EST Narrative [facility] - 12/02/2024 10:29 AM EST [...] obtained. Raheel WEBBER LAB BLOOD ORDERAB LES [facility] [address] [place] [address], * (ABNORMAL) CBC auto differential (12/02/2024 6:24 AM EST) WBC 17.3(H) 4.8 - 10.8 K/mcL LAB HEMETOLOGY METHOD 12/02/2024 7:34 AM EST [facility] RBC 3.20(L) 3.80 - 4.80 M/mcL LAB HEMETOLOGY METHOD 12/02/2024 7:34 AM EST [facility] Hemoglobin 9.0(L) 11.5 - 16.0 g/dL LAB HEMETOLOGY METHOD 12/02/2024 7:34 AM [facility] Hematocrit 30.8(L) 35.0 - 47.0 % LAB HEMETOLOGY METHOD 12/02/2024 7:34 AM [facility] MCV 96.9 79.0 - 98.0 FL LAB HEMETOLOGY METHOD 12/02/2024 7:34 AM [facility] MCH 28.3 27.0 - 32.0 pcg LAB HEMETOLOGY METHOD 12/02/2024 7:34 AM [facility] MCHC 29.2(L) 32.0 - 37.0 g/dL LAB HEMETOLOGY METHOD 12/02/2024 7:34 AM [facility] RDW 20.0(H) 11.0 - 15.0 % LAB HEMETOLOGY METHOD 12/02/2024 7:34 AM [facility] Platelets 248 130 - 400 K/mcL LAB HEMETOLOGY METHOD 12/02/2024 7:34 AM [facility] MPV 10.4 7.0 - 11.0 FL LAB HEMETOLOGY METHOD 12/02/2024 7:34 AM [facility] NRBC 0.0 <1.0 % LAB HEMETOLOGY METHOD 12/02/2024 7:34 AM [facility] NRBC Absolute 0.00 <0.10 K/mcL LAB HEMETOLOGY METHOD 12/02/2024 7:34 AM [facility] Neutrophils Relative 86.9 % LAB HEMETOLOGY METHOD 12/02/2024 7:34 AM [facility] Lymphocytes Relative 6.1 % LAB HEMETOLOGY METHOD 12/02/2024 7:34 AM [facility] Monocytes Relative 5.6 % LAB HEMETOLOGY METHOD 12/02/2024 7:34 AM [facility] Eosinophils Relative 0.0 % LAB HEMETOLOGY METHOD 12/02/2024 7:34 AM EST [facility] Basophils Relative 0.2 % LAB HEMETOLOGY METHOD 12/02/2024 7:34 AM EST [facility] Immature Granulocytes Relative 1.2 % LAB HEMETOLOGY METHOD 12/02/2024 7:34 AM EST [facility] Neutrophils Absolute 15.03(H) 1.50 - 7.00 K/mcL LAB HEMETOLOGY METHOD 12/02/2024 7:34 AM EST [facility] Lymphocytes Absolute 1.05 1.00 - 5.00 K/mcL LAB HEMETOLOGY METHOD 12/02/2024 7:34 AM EST [facility] Monocytes Absolute 0.96 0.20 - 1.00 K/mcL LAB HEMETOLOGY METHOD 12/02/2024 7:34 AM EST [facility] Eosinophils Absolute 0.00 0.00 - 0.50 K/mcL LAB HEMETOLOGY METHOD 12/02/2024 7:34 AM EST [facility] Basophils Absolute 0.03 0.00 - 0.20 K/mcL LAB HEMETOLOGY METHOD 12/02/2024 7:34 AM [facility] Immature Granulocytes Absolute 0.21(H) 0.00 - 0.03 K/mcL LAB HEMETOLOGY METHOD 12/02/2024 7:34 AM EST [facility] Blood Venous blood specimen / Unknown Venipuncture / Unknown 12/02/2024 6:24 AM EST 12/02/2024 7:02 AM EST Giovana WEBBER LAB BLOOD ORDERABLES [facility]) [facility] [address] [place] [address], * (ABNORMAL) Basic metabolic panel (12/02/2024 6:23 AM EST) Sodium 138 133 - 145 mmol/L LAB CHEMISTRY METHOD 12/02/2024 7:41 AM [facility] Potassium 3.8 3.5 - 5.5 mmol/L LAB CHEMISTRY METHOD 12/02/2024 7:41 AM [facility] Chloride 102 96 - 110 mmol/L LAB CHEMISTRY METHOD 12/02/2024 7:41 AM [facility] CO2 33(H) 21 - 32 mmol/L LAB CHEMISTRY METHOD 12/02/2024 7:41 AM [facility] Anion Gap 3 3 - 11 LAB CHEMISTRY METHOD 12/02/2024 7:41 AM [facility] Glucose 149(H) 70 - 100 mg/dL LAB CHEMISTRY METHOD 12/02/2024 7:41 AM [facility] BUN 17 5 - 25 mg/dL LAB CHEMISTRY METHOD 12/02/2024 7:41 AM [facility] Creatinine 1.05 0.50 - 1.10 mg/dL LAB CHEMISTRY METHOD 12/02/2024 7:41 AM [facility] eGFR 59(L) >=60 mL/min/1. 73m2 LAB CHEMISTRY METHOD 12/02/2024 7:41 AM [facility] Comment:Calculation based on the??Chronic Kidney Disease Epidemiology Collaboration (CKD-EPI) equation refit??without adjustment for race. BUN/Creatinine Ratio 16.2 LAB CHEMISTRY METHOD 12/02/2024 7:41 AM [facility] Calcium 8.4(L) 8.5 - 10.5 mg/dL LAB CHEMISTRY METHOD 12/02/2024 7:41 AM [facility] Blood Venous blood specimen / Unknown Venipuncture / Unknown 12/02/2024 6:23 AM EST 12/02/2024 7:03 AM EST Giovana WEBBER LAB BLOOD ORDERABLES [facility] [address] [place] [address], [place] [phone] * (ABNORMAL) Lactate (12/01/2024 4:05 PM EST) Lactate 2.7(H) 0.4 - 2.0 mmol/L LAB CHEMISTRY METHOD 12/01/2024 4:42 PM EST [facility] Blood Venous blood specimen / Unknown Venipuncture / Unknown 12/01/2024 4:05 PM EST 12/01/2024 4:12 PM EST Giovana WEBBER LAB BLOOD ORDERABLES [facility] [address] [place] [address], [place] [phone] * Culture blood (12/01/2024 4:05 PM EST) Culture, Blood No growth at 5 days 12/06/2024 5:01 PM EST [facility] Blood Venous blood specimen / Unknown Venipuncture / Unknown 12/01/2024 4:05 PM EST 12/01/2024 4:13 PM EST Giovana WEBBER LAB MICROBIOLOGY - G ENERAL ORDERABLES [facility] [address] [place] [address], [place] [phone] * Culture blood (12/01/2024 3:47 PM EST) Culture, Blood No growth at 5 days 12/06/2024 5:01 PM EST [facility] Blood Venous blood specimen / Unknown Venipuncture / Unknown 12/01/2024 3:47 PM EST 12/01/2024 4:12 PM EST [facility] MICROBIOLOGY - G ENERAL ORDERABLES Performing Organization Address [facility] Co de Phone Number [facility] [address] [place] [address], [place] [phone] * (ABNORMAL) Prothrombin time with INR (12/01/2024 2:57 PM EST) Protime 19.8(H) 10.6 - 13.9 sec LAB COAGULATION METHOD 12/01/2024 3:24 PM EST [facility] INR 1.6 LAB COAGULATION METHOD 12/01/2024 3:24 PM EST [facility] Blood Venous blood specimen / Unknown Venipuncture / Unknown 12/01/2024 2:57 PM EST 12/01/2024 3:02 PM EST [facility] BLOOD ORDERABLES Performing Organization Address [facility] Co de Phone Number [facility] [address] [place] [address], [place] [phone] * (ABNORMAL) B-type natriuretic peptide (12/01/2024 2:57 PM EST) Pathologist [facility] BNP 542(H) <=100 pcg/mL LAB CHEMISTRY METHOD 12/01/2024 3:42 PM EST [facility] Blood Venous blood specimen / Unknown Venipuncture / Unknown 12/01/2024 2:57 PM EST 12/01/2024 3:02 PM EST [facility] BLOOD ORDERABLES Performing Organization Address [facility]/ZIP Co de Phone Number [facility] [address] [place] [address], [place] [phone] * CT Angio Chest wo and/or w [...] Signed Date: 12/01/2024 11:56 ET Workstation ID: [id number] Transcribed By: Self Edit Transcribed Date: 12/01/2024 [...] Signed Date: 12/01/2024 11:56 ET Workstation ID: [id number] Transcribed By: Self Edit Transcribed Date: 12/01/2024 11:53 ET Ailyn WEBB[facility] IMG CT PROCEDURES * (ABNORMAL) Magnesium (12/01/2024 10:12 AM EST) [facility] Magnesium 1.8(L) 1.9 - 2.6 mg/dL LAB CHEMISTRY METHOD 12/01/2024 3:46 PM EST [facility] Blood Venous blood specimen / Unknown Venipuncture / Unknown 12/01/2024 10:12 AM EST 12/01/2024 10:30 AM EST [facility] BLOOD ORDERABLES [facility] [address] [place] [address], * Vitamin B12 and folate (12/01/2024 10:12 AM EST) [facility] Vitamin B-12 468 250 - 900 pcg/mL LAB CHEMISTRY METHOD 12/01/2024 4:12 PM EST [facility] Folate 10.4 2.8 - 17.0 ng/ml LAB CHEMISTRY METHOD 12/01/2024 4:12 PM [facility] Blood Venous blood specimen / Unknown Venipuncture / Unknown 12/01/2024 10:12 AM EST 12/01/2024 10:30 AM EST Giovana WEBBER LAB BLOOD ORDERABLES [facility] [address] [place] [address], [place] [phone] * Ferritin (12/01/2024 10:12 AM EST) Ferritin 31 8 - 252 ng/mL LAB CHEMISTRY METHOD 12/01/2024 3:23 PM [facility] Blood Venous blood specimen / Unknown Venipuncture / Unknown 12/01/2024 10:12 AM EST 12/01/2024 10:30 AM EST Giovana WEBBER LAB BLOOD ORDERABLES [facility] [address] [place] [address], [place] [phone] * (ABNORMAL) Iron and TIBC (12/01/2024 10:12 AM EST) Iron 19(L) 40 - 150 mcg/dL LAB CHEMISTRY METHOD 12/01/2024 2:49 PM [facility] TIBC 428 250 - 450 mcg/dL LAB CHEMISTRY METHOD 12/01/2024 2:49 PM [facility] Iron Saturation 4(L) 15 - 50 % LAB CHEMISTRY METHOD 12/01/2024 2:49 PM [facility] Blood Venous blood specimen / Unknown Venipuncture / Unknown 12/01/2024 10:12 AM EST 12/01/2024 10:30 AM EST Giovana WEBBER LAB BLOOD ORDERABLES [facility] [address] [place] [address], * Hepatic function panel (12/01/2024 10:12 AM EST) Total Protein 6.5 6.0 - 8.0 g/dL LAB CHEMISTRY METHOD 12/01/2024 2:37 PM EST [facility] Albumin 3.3 3.2 - 5.0 g/dL LAB CHEMISTRY METHOD 12/01/2024 2:37 PM [facility] Total Bilirubin 0.5 0.0 - 1.4 mg/dL LAB CHEMISTRY METHOD 12/01/2024 2:37 PM [facility] Bilirubin, Direct 0.1 0.0 - 0.3 mg/dL LAB CHEMISTRY METHOD 12/01/2024 2:37 PM EST [facility] Bilirubin, Indirect 0.4 0.0 - 1.1 mg/dL LAB CHEMISTRY METHOD 12/01/2024 2:37 PM [facility] ALT (SGPT) 21 10 - 60 unit/L LAB CHEMISTRY METHOD 12/01/2024 2:37 PM [facility] AST (SGOT) 12 10 - 42 unit/L LAB CHEMISTRY METHOD 12/01/2024 2:37 PM [facility] Alkaline Phosphatase 68 42 - 121 unit/L LAB CHEMISTRY METHOD 12/01/2024 2:37 PM [facility] Blood Venous blood specimen / Unknown Venipuncture / Unknown 12/01/2024 10:12 AM EST 12/01/2024 10:30 AM EST Giovana WEBBER LAB BLOOD ORDERABLES [facility] [address] [place] [address], * (ABNORMAL) Manual differential (12/01/2024 10:12 AM EST) Neutrophils % 90.0 % LAB HEMETOLOGY METHOD 12/01/2024 11:16 AM [facility] Lymphocytes % 6.0 % LAB HEMETOLOGY METHOD 12/01/2024 11:16 AM [facility] Monocytes % 4.0 % LAB HEMETOLOGY METHOD 12/01/2024 11:16 AM [facility] Eosinophils % 0.0 % LAB HEMETOLOGY METHOD 12/01/2024 11:16 AM [facility] Basophils % 0.0 % LAB HEMETOLOGY METHOD 12/01/2024 11:16 AM [facility] Neutrophils Absolute Manual 20.70(H) 1.50 - 7.00 K/mcL LAB HEMETOLOGY METHOD 12/01/2024 11:16 AM [facility] Lymphocytes Absolute 1.38 1.00 - 5.00 K/mcL LAB HEMETOLOGY METHOD 12/01/2024 11:16 AM [facility] Monocytes Absolute Manual 0.92 0.20 - 1.00 K/mcL LAB HEMETOLOGY METHOD 12/01/2024 11:16 AM [facility] Eosinophils Absolute Manual 0.00 0.00 - 0.50 K/mcL LAB HEMETOLOGY METHOD 12/01/2024 11:16 AM [facility] Basophils Absolute Manual 0.00 0.00 - 0.20 K/mcL LAB HEMETOLOGY METHOD 12/01/2024 11:16 AM [facility] Rbc Morphology Present( A) Consistent with indices, Normal for [place] LAB HEMETOLOGY METHOD 12/01/2024 11:16 AM [facility] Comment:RBC: Morphology agre es with CBC Platelet Morphology - WAM See Note(A) Normal LAB HEMETOLOGY METHOD 12/01/2024 11:16 AM EST [facility] Comment:PLT: Normal Polychromasia Present Present( A) (none) LAB HEMETOLOGY METHOD 12/01/2024 11:16 AM EST [facility] Blood Venous blood specimen / Unknown Venipuncture / Unknown 12/01/2024 10:12 AM EST 12/01/2024 10:30 AM EST Ailyn WEBBER LAB BLOOD ORDERABLES Performing Organization Address [facility]/ZIP Co de Phone Number [facility] [address] [place] [address], [place] [phone] * Troponin I high sensitivity (12/01/2024 10:12 AM EST) [facility] High Sensitivity Troponin I 7 <=54 ng/L LAB CHEMISTRY METHOD 12/01/2024 11:03 AM EST [facility] Blood Venous blood specimen / Unknown Venipuncture / Unknown 12/01/2024 10:12 AM EST 12/01/2024 10:30 AM EST Narrative [facility] - 12/01/2024 11:03 AM EST High levels of biotin in samples may falsely decrease hsTroponin values. ??Use caution when interpreting hsTroponin results in patients taking biotin who exhibit renal impairment (eGFR <60) or in patients taking more than 20 mg/day of biotin. Josh Carranza MD LAB BLOOD ORDERABLE S Performing Organization Address [facility]/State/ZIP Co de Phone Number [facility] [address] [place] [address], [place] [phone] * (ABNORMAL) CBC auto differential (12/01/2024 10:12 AM EST) [facility] WBC 23.0(H) 4.8 - 10.8 K/mcL LAB HEMETOLOGY METHOD 12/01/2024 11:16 AM [facility] RBC 3.50(L) 3.80 - 4.80 M/mcL LAB HEMETOLOGY METHOD 12/01/2024 11:16 AM [facility] Hemoglobin 10.0(L) 11.5 - 16.0 g/dL LAB HEMETOLOGY METHOD 12/01/2024 11:16 AM [facility] Hematocrit 33.3(L) 35.0 - 47.0 % LAB HEMETOLOGY METHOD 12/01/2024 11:16 AM [facility] MCV 94.3 79.0 - 98.0 FL LAB HEMETOLOGY METHOD 12/01/2024 11:16 AM [facility] MCH 28.3 27.0 - 32.0 pcg LAB HEMETOLOGY METHOD 12/01/2024 11:16 AM [facility] MCHC 30.0(L) 32.0 - 37.0 g/dL LAB HEMETOLOGY METHOD 12/01/2024 11:16 AM [facility] RDW 20.1(H) 11.0 - 15.0 % LAB HEMETOLOGY METHOD 12/01/2024 11:16 AM [facility] Platelets 274 130 - 400 K/mcL LAB HEMETOLOGY METHOD 12/01/2024 11:16 AM [facility] MPV 10.2 7.0 - 11.0 FL LAB HEMETOLOGY METHOD 12/01/2024 11:16 AM [facility] NRBC 0.0 <1.0 % LAB HEMETOLOGY METHOD 12/01/2024 11:16 AM [facility] NRBC Absolute 0.00 <0.10 K/mcL LAB HEMETOLOGY METHOD 12/01/2024 11:16 AM [facility] Blood Venous blood specimen / Unknown Venipuncture / Unknown 12/01/2024 10:12 AM EST 12/01/2024 10:30 AM EST Ailyn WEBBER LAB BLOOD ORDERABLES [facility] [address] [place] [address], * (ABNORMAL) Basic metabolic panel (12/01/2024 10:12 AM EST) Sodium 136 133 - 145 mmol/L LAB CHEMISTRY METHOD 12/01/2024 11:00 AM [facility] Potassium 3.7 3.5 - 5.5 mmol/L LAB CHEMISTRY METHOD 12/01/2024 11:00 AM [facility] Chloride 99 96 - 110 mmol/L LAB CHEMISTRY METHOD 12/01/2024 11:00 AM [facility] CO2 33(H) 21 - 32 mmol/L LAB CHEMISTRY METHOD 12/01/2024 11:00 AM [facility] Anion Gap 4 3 - 11 LAB CHEMISTRY METHOD 12/01/2024 11:00 AM [facility] Glucose 139(H) 70 - 100 mg/dL LAB CHEMISTRY METHOD 12/01/2024 11:00 AM [facility] BUN 17 5 - 25 mg/dL LAB CHEMISTRY METHOD 12/01/2024 11:00 AM [facility] Creatinine 1.25(H) 0.50 - 1.10 mg/dL LAB CHEMISTRY METHOD 12/01/2024 11:00 AM [facility] eGFR 48(L) >=60 mL/min/1. 73m2 LAB CHEMISTRY METHOD 12/01/2024 11:00 AM [facility] Comment:Calculation based on the??Chronic Kidney Disease Epidemiology Collaboration (CKD-EPI) equation refit??without adjustment for race. BUN/Creatinine Ratio 13.6 LAB CHEMISTRY METHOD 12/01/2024 11:00 AM [facility] Calcium 8.8 8.5 - 10.5 mg/dL LAB CHEMISTRY METHOD 12/01/2024 11:00 AM [facility] Blood Venous blood specimen / Unknown Venipuncture / Unknown 12/01/2024 10:12 AM EST 12/01/2024 10:30 AM EST Ailyn WEBBER LAB BLOOD ORDERABLES [facility] [address] [place] [address], * (ABNORMAL) Respiratory virus panel molecular study (12/01/2024 10:06 AM EST) Adenovirus Detection by PCR Not Detected Not Detected LAB MICROBIOLOGY METHOD 12/01/2024 11:43 AM [facility] Influenza A PCR Not Detected Not Detected LAB MICROBIOLOGY METHOD 12/01/2024 11:43 AM [facility] Influenza B PCR Not Detected Not Detected LAB MICROBIOLOGY METHOD 12/01/2024 11:43 AM [facility] Coronavirus 229E Not Detected Not Detected LAB MICROBIOLOGY METHOD 12/01/2024 11:43 AM [facility] Coronavirus HKU1 Not Detected Not Detected LAB MICROBIOLOGY METHOD 12/01/2024 11:43 AM [facility] Coronavirus OC43 Not Detected Not Detected LAB MICROBIOLOGY METHOD 12/01/2024 11:43 AM [facility] Coronavirus NL63 Not Detected Not Detected LAB MICROBIOLOGY METHOD 12/01/2024 11:43 AM [facility] Parainfluenza Virus 1 Not Detected Not Detected LAB MICROBIOLOGY METHOD 12/01/2024 11:43 AM [facility] Parainfluenza Virus 2 Not Detected Not Detected LAB MICROBIOLOGY METHOD 12/01/2024 11:43 AM [facility] Parainfluenza Virus 3 Not Detected Not Detected LAB MICROBIOLOGY METHOD 12/01/2024 11:43 AM [facility] Parainfluenza Virus 4 Not Detected Not Detected LAB MICROBIOLOGY METHOD 12/01/2024 11:43 AM [facility] RSV PCR Not Detected Not Detected LAB MICROBIOLOGY METHOD 12/01/2024 11:43 AM [facility] Human Metapneumovirus A and B Not Detected Not Detected LAB MICROBIOLOGY METHOD 12/01/2024 11:43 AM [facility] Rhinovirus/Entero virus Not Detected Not Detected LAB MICROBIOLOGY METHOD 12/01/2024 11:43 AM [facility] Bordetella pertussis Not Detected Not Detected LAB MICROBIOLOGY METHOD 12/01/2024 11:43 AM [facility] Bordetella parapertussis Not Detected Not Detected LAB MICROBIOLOGY METHOD 12/01/2024 11:43 AM [facility] Mycoplasma pneumo by PCR Not Detected Not Detected LAB MICROBIOLOGY METHOD 12/01/2024 11:43 AM [facility] Chlamydia pneumoniae Not Detected Not Detected LAB MICROBIOLOGY METHOD 12/01/2024 11:43 AM [facility] SARS COV-2 Detected(A ) Not Detected LAB MICROBIOLOGY METHOD 12/01/2024 11:43 AM [facility] Swab Both anterior nares / Unknown Non-blood Collection / Unknown 12/01/2024 10:06 AM EST 12/01/2024 10:13 AM [facility] - 12/01/2024 11:43 AM EST Testing was performed using the [employer] [place] Respiratory Pathogen PCR Assay. All results must [...] LAB MICROBIOLOGY - G ENERAL ORDERABLES [facility] [address] [place] [address], * ECG 12 lead (12/01/2024 9:55 AM EST) Ventricular Rate ECG 111 BPM GEMUSE Atrial Rate 107 BPM GEMUSE QRS Duration 142 ms GEMUSE Q-T Interval 402 ms GEMUSE QTc 546 ms GEMUSE R [place] 77 degrees GEMUSE T [place] 9 degrees GEMUSE ECG Interpretation Atrial fibrillation with rapid ventricular response with premature ventricular or aberrantly conducted complexes Right bundle branch block T wave abnormality, consider lateral ischemia Abnormal ECG No previous ECGs available Confirmed by Theo ROLLINS JAMES ([id number]) on 12/02/2024 3:12:18 PM GEMUSE 12/01/2024 9:55 AM EST 12/02/2024 3:12 PM EST Ailyn WEBBER ECG ORDERABLES [facility] * ECG-Annotated (12/01/2024) Provider Onbase MD ECG ORDERABLES * ECG-Outside (12/01/2024) Provider Onbase MD ECG ORDERABLES * ECG-Outside (12/01/2024) Provider Onbase MD ECG ORDERABLES documented in this encounter Visit Diagnoses Diagnosis COVID-19- Primary COVID Peripheral edema Edema Acute hypoxemic respiratory failure due to COVID-19 (CMS/HCC) documented in this encounter Admitting Diagnoses Diagnosis COVID-19 Acute hypoxemic respiratory failure due to COVID-19 (CMS/HCC) documented in this encounter Administered Medications Inactive Administered Medications - up to 3 most recent administrations Medication Order MAR Action Action Date Dose Rate Site acetaminophen (TYLENOL) tablet 1,000 mg 1,000 mg, oral, Once, On Wed12/01/24 at 0950, For 1 dose Given 12/01/2024 10:23 AM EST 1,000 mg acetaminophen (TYLENOL) tablet 650 mg 650 mg, oral, Every 6 hours PRN, mild pain, Starting on Wed12/01/24 at 1252 acetaZOLAMIDE (DIAMOX) injection 250 mg 250 mg, intravenous, Once, On Wed12/05/24 at 1330, For 1 dose, Reconstitute with 5 mL STERILE WATER to provide a solution containing 100 mg/mL. For IV Push - administer IV over 3 minutes Given 12/05/2024 1:29 PM EST 250 mg amiodarone (PACERONE) tablet 200 mg 200 mg, oral, Daily, First dose on Wed12/02/24 at 0900 Given 12/07/2024 8:55 AM EST 200 mg Given 12/06/2024 9:21 AM EST 200 mg Given 12/05/2024 9:30 AM EST 200 mg benzonatate (TESSALON) capsule 200 mg 200 mg, oral, 3 times daily PRN, cough, second line for cough, Starting on Wed12/03/24 at 2207, Do not crush or chew. Pump Refill 12/06/2024 8:56 PM EST 200 mg Given 12/06/2024 6:09 AM EST 200 mg Given 12/06/2024 12:15 AM EST 200 mg dexAMETHasone (DECADRON) injection 6 mg 6 mg, intravenous, Daily, First dose on Wed12/01/24 at 1404 Given 12/07/2024 8:54 AM EST 6 mg Given 12/06/2024 9:20 AM EST 6 mg Given 12/05/2024 9:28 AM EST 6 mg dilTIAZem CD (CARDIZEM CD) 24 hr capsule 120 mg 120 mg, oral, Daily, First dose on Wed12/06/24 at 1430, Do not crush, chew, or split. Given 12/07/2024 8:55 AM EST 120 m g Given 12/06/2024 2:21 PM EST 120 mg ferric gluconate (FERRLECIT) 125 mg in sodium chloride 0.9 % 110 mL IVPB 125 mg, intravenous, at 110 mL/hr, Administer over 60 Minutes, Once, On Wed12/01/24 at 1730, For 1 dose New Bag 12/01/2024 5:30 PM EST 125 mg 110 mL/hr ferrous sulfate tablet 325 mg 325 mg, oral, 2 times daily, First dose on Wed12/01/24 at 2100, Ordered as ferrous sulfate. 325 mg ferrous sulfate = 65 mg elemental iron. Given 12/07/2024 8:55 AM EST 325 mg Pump Refill 12/06/2024 8:56 PM EST 325 mg Given 12/06/2024 9:21 AM EST 325 mg furosemide (LASIX) injection 20 mg 20 mg, intravenous, Daily, First dose on Wed12/04/24 at 1100 Pump Refill 12/04/2024 11:58 AM EST 20 mg furosemide (LASIX) injection 20 mg 20 mg, intravenous, BID Diuretic, First dose (after last modification) on Wed12/04/24 at 1715, On hold since Wed12/05/2024 at 0811 until manually unheld Given 12/04/2024 5:49 PM EST 20 mg furosemide (LASIX) injection 20 mg 20 mg, intravenous, BID Diuretic, First dose (after last modification) on Wed12/05/24 at 1315, On hold since Wed12/06/2024 at 1417 until manually unheld Given 12/06/2024 9:20 AM EST 20 mg Given 12/05/2024 1:29 PM EST 20 mg furosemide (LASIX) injection 20 mg 20 mg, intravenous, Once, On Wed12/05/24 at 1900, For 1 dose Given 12/05/2024 8:25 PM EST 20 mg furosemide (LASIX) tablet 20 mg 20 mg, oral, Daily, First dose on Wed12/02/24 at 1615, On hold since Wed12/04/2024 at 0819 until manually unheld Given 12/03/2024 9:34 AM EST 20 mg Given 12/02/2024 4:55 PM EST 20 mg guaiFENesin tablet 200 mg 200 mg, oral, Every 4 hours PRN, cough, Starting on Wed12/01/24 at 1514 Given 12/05/2024 8:26 PM EST 200 mg Given 12/04/2024 8:50 PM EST 200 mg Given 12/03/2024 11:10 PM EST 200 mg iopamidoL (ISOVUE-370) 370 mg iodine /mL (76 %) injection 90 mL 90 mL, intravenous, Once in imaging, Starting on Wed12/01/24 at 1118, For 1 dose Given 12/01/2024 11:19 AM EST 90 mL letrozole (FEMARA) tablet 2.5 mg 2.5 mg, oral, Daily, First dose on Wed12/01/24 at 1434, HAZARDOUS Drug Precautions - Low Risk (Category A/NIOSH Group 1) Antineoplastic Tablet/Capsule: - Single pair of ASTM standard D6978 certified chemotherapy gloves - Eye protection (goggles or face shield) required only with a potential for facial contact (i.e. concern for spitting or vomiting of the dose during or after administration) - Staff at reproductive risk (actively trying to conceive, or may be become , and ): chemo certified gown and an N95 respirator required when crushing meds (crushing of tabs allowed only in closed pouches) or opening of capsules only for allowable dosage forms Given 12/07/2024 8:55 AM EST 2.5 mg Given 12/06/2024 9:22 AM EST 2.5 mg Given 12/05/2024 9:30 AM EST 2.5 mg levothyroxine (SYNTHROID, LEVOTHROID) tablet 125 mcg 125 mcg, oral, Every morning before breakfast, First dose (after last modification) on Wed12/06/24 at 0600, ORAL ROUTE: take on an empty stomach and separate from other medications. ENTERAL TUBE ROUTE: If newly initiated enteral nutrition duration is over 5 days, hold enteral nutrition 1 hour before and after drug administration, per ASPEN guidelines. Given 12/07/2024 6:06 AM EST 125 mc g Given 12/06/2024 6:10 AM EST 125 mcg levothyroxine (SYNTHROID, LEVOTHROID) tablet 250 mcg 250 mcg, oral, Every morning before breakfast, First dose on Wed12/02/24 at 0600, ORAL ROUTE: take on an empty stomach and separate from other medications. ENTERAL TUBE ROUTE: If newly initiated enteral nutrition duration is over 5 days, hold enteral nutrition 1 hour before and after drug administration, per ASPEN guidelines. Given 12/05/2024 6:46 AM ES T 100 mcg Given 12/04/2024 5:19 AM EST 250 mcg Given 12/03/2024 6:14 AM EST 250 mcg losartan 100 mg, hydroCHLOROthiazide 25 mg (for BENICAR HCT) oral, Daily, First dose on Wed12/02/24 at 1615, Give both components for BENICAR HCT product, On hold since Wed12/04/2024 at 0820 until manually unheld Given 12/03/2024 9:34 AM EST Given 12/02/2024 4:55 PM EST metoprolol succinate (TOPROL-XL) 24 Hour tablet 100 mg 100 mg, oral, Daily, First dose on Wed12/02/24 at 0900, Do not crush or chew. Given 12/05/2024 9:29 AM EST 100 mg Given 12/04/2024 9:22 AM EST 100 mg Given 12/03/2024 9:34 AM EST 100 mg metoprolol tartrate (LOPRESSOR) injection 5 mg 5 mg, intravenous, Once, On Wed12/03/24 at 1930, For 1 dose, For IV Push - Administer undiluted over 2 minutes Given 12/03/2024 9:55 PM EST 5 mg metoprolol tartrate (LOPRESSOR) injection 5 mg 5 mg, intravenous, Every 6 hours PRN, other, sustained HR > 110, hold for SBP < 100, Starting on Wed12/05/24 at 1225, For IV Push - Administer undiluted over 2 minutes Given 12/06/2024 10:53 AM EST 5 mg metoprolol tartrate (LOPRESSOR) tablet 100 mg 100 mg, oral, 2 times daily, First dose on Wed12/05/24 at 2100 Given 12/07/2024 8:55 AM EST 100 mg Pump Refill 12/06/2024 8:57 PM EST 100 mg Given 12/06/2024 9:21 AM EST 100 mg pantoprazole (PROTONIX) EC tablet 40 mg 40 mg, oral, Every morning before breakfast, First dose on Wed12/02/24 at 0700, Do not crush, chew, or split. Given 12/07/2024 6:06 AM EST 40 mg Given 12/06/2024 6:10 AM EST 40 mg Given 12/05/2024 6:46 AM EST 40 mg perflutren lipid microsphere (DEFINITY) 1.3 mL in sodium chloride 0.9% 8.7 mL injection 10 mL, intravenous, Administer over 10 Minutes, Once in imaging, Starting on Wed12/05/24 at 1101, For 1 dose, CV Medication Orders Given 12/05/2024 11:02 AM EST 2 mL remdesivir (VEKLURY) 100 mg in sodium chloride 0.9 % 250 mL IVPB 100 mg, intravenous, at 500 mL/hr, Administer over 30 Minutes, Every 24 hours, First dose on Wed12/02/24 at 1530, For 4 doses, Do not administer the prepared diluted solution simultaneously with any other medication. Flush IV line with 30 mL NS after the infusion is finished. New Bag 12/05/2024 3:12 PM EST 100 mg 500 mL/hr Restarted 12/04/2024 5:00 PM EST 500 mL/hr New Bag 12/03/2024 3:21 PM EST 100 mg 500 mL/hr remdesivir (VEKLURY) 200 mg in sodium chloride 0.9 % 250 mL IVPB 200 mg, intravenous, at 500 mL/hr, Administer over 30 Minutes, Once, On Wed12/01/24 at 1530, For 1 dose, Do not administer the prepared diluted solution simultaneously with any other medication. Flush IV line with 30 mL NS after the infusion is finished. New Bag 12/01/2024 3:11 PM EST 200 mg 500 mL/hr rivaroxaban (XARELTO) tablet 20 mg 20 mg, oral, Daily with dinner, First dose on Wed12/01/24 at 1700, Best administered with food or immediately before tube feedings. If ordered via NG or G-tube route, crush and mix with 50 mL water; give within 4 hours of mixing., Indication: Atrial Fibrillation Given 12/06/2024 4:30 PM EST 20 mg Given 12/05/2024 6:01 PM EST 20 mg Given 12/04/2024 4:35 PM EST 20 mg sodium chloride 0.9 % bolus 1,000 mL 1,000 mL, intravenous, at 2,000 mL/hr, Administer over 30 Minutes, Once, On Wed12/01/24 at 0950, For 1 dose New Bag 12/01/2024 10:22 AM EST 1,000 mL 2000 mL/hr sodium chloride 0.9 % flush 10 mL 10 mL, intravenous, Once, On Wed12/01/24 at 1119, For 1 dose Given 12/01/2024 11:19 AM EST 10 mL sodium chloride 0.9 % flush bag 30 mL 30 mL, intravenous, Every 24 hours, First dose on Wed12/02/24 at 1600, For 4 doses, -Flush tubing used to administer remdesivir (VEKLURY) -Infuse at the same rate as remdesivir (VEKLURY) after remdesivir (VEKLURY) is infused to ensure complete dose is delivered New Bag 12/05/2024 4:02 PM EST 30 mL New Bag 12/04/2024 5:47 PM EST 30 mL New Bag 12/03/2024 4:35 PM EST 30 mL sodium chloride 0.9 % infusion 75 mL/hr, intravenous, Continuous, Starting on Wed12/01/24 at 1420, For 8 hours New Bag 12/01/2024 3:13 PM EST 75 mL/hr 75 mL/hr traZODone (DESYREL) tablet 50 mg 50 mg, oral, Nightly PRN, sleep, Starting on Wed12/04/24 at 1125 Pump Refill 12/06/2024 8:57 PM EST 50 mg Given 12/05/2024 8:26 PM EST 50 mg Given 12/04/2024 8:50 PM EST 50 mg documented in this encounter Discontinued Medications Medication Sig Discontinue Reason Start Date End Da te olmesartan (BENICAR) 40 mg tablet Take 1 tablet (40 mg total) by mouth 1 (one) time each day. Discontinued by another clinician 12/01/2024 furosemide (LASIX) 40 mg tablet Take 0.5 tablets (20 mg total) by mouth 1 (one) time each day. 12/07/2024 metoprolol succinate (TOPROL-XL) 100 mg 24 hr tablet Take 1 tablet (100 mg total) by mouth 1 (one) time each day. Do not crush or chew. Stop Taking at Discharge 12/07/2024 olmesartan-hydroCHLORO thiazide (BENICAR HCT) 40-25 mg per tablet Take 1 tablet by mouth 1 (one) time each day. Stop Taking at Discharge 12/07/2024 documented as of this encounter Historical Medications * This list may reflect changes made after this encounter. Medication Sig Dispensed Refills Start Date End Date olmesartan-hydroCHLOROthi azide (BENICAR HCT) 40-25 mg per tablet Take 1 tablet by mouth 1 (one) time each day. 12/07/2024 added in this encounter Active and Recently Administered Medications Times are shown in EST. Scheduled Medication Order 12/05/2024 12/06/2024 12/07/2024 acetaZOLAMIDE (DIAMOX) injection 250 mg (COMPLETED) 250 mg, intravenous, Once, On Wed12/05/24 at 1330, For 1 dose, Reconstitute with 5 mL STERILE WATER to provide a solution containing 100 mg/mL. For IV Push - administer IV over 3 minutes 1329 (Given - Provider: Cheryle Regan RN) amiodarone (PACERONE) tablet 200 mg 200 mg, oral, Daily, First dose on Wed12/02/24 at 0900 0930 (Given - Provider: Cheryle Regan RN) 0921 (Given - Provider: Kristine Simons RN) 0855 (Given - Provider: Kristine Simons RN) dexAMETHasone (DECADRON) injection 6 mg 6 mg, intravenous, Daily, First dose on Wed12/01/24 at 1404 0928 (Given - Provider: Cheryle Regan RN) 0920 (Given - Provider: Kristine Simons RN) 0854 (Given - Provider: Kristine Simons RN) dilTIAZem CD (CARDIZEM CD) 24 hr capsule 120 mg 120 mg, oral, Daily, First dose on Wed12/06/24 at 1430, Do not crush, chew, or split. 1421 (Given - Provider: Kristine Simons RN) 0855 (Given - Provider: Kristine Simons RN) ferrous sulfate tablet 325 mg 325 mg, oral, 2 times daily, First dose on Wed12/01/24 at 2100, Ordered as ferrous sulfate. 325 mg ferrous sulfate = 65 mg elemental iron. 0930 (Given - Provider: Cheryle Regan RN)2025 (Given - Provider: Cj Morales RN) 0921 (Given - Provider: Kristine Simons RN)2055 (Pump Refill - Provider: Nicole Alicia RN) 0855 (Given - Provider: Kristine Simons RN) furosemide (LASIX) injection 20 mg 20 mg, intravenous, BID Diuretic, First dose (after last modification) on Wed12/05/24 at 1315, On hold since Wed12/06/2024 at 1417 until manually unheld 1329 (Given - Provider: Cheryle Regan RN) 0920 (Given - Provider: Kristine Simons RN)1417 (Held by provider - Provider: AKBAR Graham - Reason: Other)1700 (Dose Auto Held - Provider: AKBAR Graham) 0900 (Dose Auto Held - Provider: AKBAR Graham)1856 (Unheld by provider - Provider: Automatic Discharge Provider) furosemide (LASIX) injection 20 mg (COMPLETED) 20 mg, intravenous, Once, On Wed12/05/24 at 1900, For 1 dose 2024 (Given - Provider: Cj Morales RN) letrozole (FEMARA) tablet 2.5 mg 2.5 mg, oral, Daily, First dose on Wed12/01/24 at 1434, HAZARDOUS Drug Precautions - Low Risk (Category A/NIOSH Group 1) Antineoplastic Tablet/Capsule: - Single pair of ASTM standard D6978 certified chemotherapy gloves - Eye protection (goggles or face shield) required only with a potential for facial contact (i.e. concern for spitting or vomiting of the dose during or after administration) - Staff at reproductive risk (actively trying to conceive, or may be become , and ): chemo certified gown and an N95 respirator required when crushing meds (crushing of tabs allowed only in closed pouches) or opening of capsules only for allowable dosage forms 0930 (Given - Provider: Cheryle Regan RN) 0922 (Given - Provider: Kristine Simons, BAO) 0855 (Given - Provider: Kristine Simons RN) levothyroxine (SYNTHROID, LEVOTHROID) tablet 125 mcg 125 mcg, oral, Every morning before breakfast, First dose (after last modification) on Wed12/06/24 at 0600, ORAL ROUTE: take on an empty stomach and separate from other medications. ENTERAL TUBE ROUTE: If newly initiated enteral nutrition duration is over 5 days, hold enteral nutrition 1 hour before and after drug administration, per ASPEN guidelines. 0610 (Given - Provider: Cj Morales RN) 0606 (Given - Provider: Amina Noonan RN) levothyroxine (SYNTHROID, LEVOTHROID) tablet 250 mcg (CANCELED) 250 mcg, oral, Every morning before breakfast, First dose on Wed12/02/24 at 0600, ORAL ROUTE: take on an empty stomach and separate from other medications. ENTERAL TUBE ROUTE: If newly initiated enteral nutrition duration is over 5 days, hold enteral nutrition 1 hour before and after drug administration, per ASPEN guidelines. 0646 (Given - Provider: Treasure Padron RN - Comment: patient will only take 100mcg this am) losartan 100 mg, hydroCHLOROthiazide 25 mg (for BENICAR HCT) oral, Daily, First dose on Wed12/02/24 at 1615, Give both components for BENICAR HCT product, On hold since Wed12/04/2024 at 0820 until manually unheld 0900 (Dose Auto Held - Provider: AKBAR Graham) 0900 (Dose Auto Held - Provider: AKBAR Graham) 0900 (Dose Auto Held - Provider: AKBAR Graham)1856 (Unheld by provider - Provider: Automatic Discharge Provider) metoprolol succinate (TOPROL-XL) 24 Hour tablet 100 mg (CANCELED) 100 mg, oral, Daily, First dose on Wed12/02/24 at 0900, Do not crush or chew. 0929 (Given - Provider: Cheryle Regan RN) metoprolol tartrate (LOPRESSOR) tablet 100 mg 100 mg, oral, 2 times daily, First dose on Wed12/05/24 at 2100 2025 (Given - Provider: Cj Morales RN) 0921 (Given - Provider: Kristine Simons, BAO)2056 (Pump Refill - Provider: Nicole Alicia RN) 0855 (Given - Provider: Kristine Simons RN) pantoprazole (PROTONIX) EC tablet 40 mg 40 mg, oral, Every morning before breakfast, First dose on Wed12/02/24 at 0700, Do not crush, chew, or split. 0646 (Given - Provider: Treasure Padron RN) 0610 (Given - Provider: Cj Morales RN) 0606 (Given - Provider: Amina Noonan RN) perflutren lipid microsphere (DEFINITY) 1.3 mL in sodium chloride 0.9% 8.7 mL injection (COMPLETED) 10 mL, intravenous, Administer over 10 Minutes, Once in imaging, Starting on Wed12/05/24 at 1101, For 1 dose, CV Medication Orders 1102 (Given - Provider: Treasure Alvarez) remdesivir (VEKLURY) 100 mg in sodium chloride 0.9 % 250 mL IVPB ()(Linked Group 1) 100 mg, intravenous, at 500 mL/hr, Administer over 30 Minutes, Every 24 hours, First dose on 12/02/24 at 1530, For 4 doses, Do not administer the prepared diluted solution simultaneously with any other medication. Flush IV line with 30 mL NS after the infusion is finished. 1512 (New Bag - Provider: Cheryle Regan RN)1555 (Stopped - Provider: Cheryle Regan RN) rivaroxaban (XARELTO) tablet 20 mg 20 mg, oral, Daily with dinner, First dose on Wed12/01/24 at 1700, Best administered with food or immediately before tube feedings. If ordered via NG or G-tube route, crush and mix with 50 mL water; give within 4 hours of mixing., Indication: Atrial Fibrillation 1801 (Given - Provider: Cheryle Regan RN) 1630 (Given - Provider: Kristine Simnos RN) 1700 (Canceled Entry - Provider: Automatic Discharge Provider - Comment: Automatically canceled at discontinue of medication order) sodium chloride 0.9 % flush bag 30 mL(Linked Group 2) 30 mL, intravenous, Once, On Wed12/01/24 at 1600, For 1 dose, -Flush tubing used to administer remdesivir (VEKLURY) -Infuse at the same rate as remdesivir (VEKLURY) after remdesivir (VEKLURY) is infused to ensure complete dose is delivered sodium chloride 0.9 % flush bag 30 mL (COMPLETED)(Linked Group 1) 30 mL, intravenous, Every 24 hours, First dose on Wed12/02/24 at 1600, For 4 doses, -Flush tubing used to administer remdesivir (VEKLURY) -Infuse at the same rate as remdesivir (VEKLURY) after remdesivir (VEKLURY) is infused to ensure complete dose is delivered 1602 (New Bag - Provider: Cheryle Regan RN) PRN Medication Order 12/05/2024 12/06/2024 12/07/2024 acetaminophen (TYLENOL) tablet 650 mg 650 mg, oral, Every 6 hours PRN, mild pain, Starting on Wed12/01/24 at 1252 0932 (Not Given - Provider: Kristine Simons RN - Reason: Patient/Resident/Agent refused - education provided ) benzonatate (TESSALON) capsule 200 mg 200 mg, oral, 3 times daily PRN, cough, second line for cough, Starting on Wed12/03/24 at 2207, Do not crush or chew. 0015 (Given - Provider: Cj Morales RN)0609 (Given - Provider: Cj Morales RN)2055 (Pump Refill - Provider: Nicole Alicia, BAO) guaiFENesin tablet 200 mg 200 mg, oral, Every 4 hours PRN, cough, Starting on Wed12/01/24 at 1514 2025 (Given - Provider: Cj Morales RN) metoprolol tartrate (LOPRESSOR) injection 5 mg 5 mg, intravenous, Every 6 hours PRN, other, sustained HR > 110, hold for SBP < 100, Starting on Tu12/05/24 at 1225, For IV Push - Administer undiluted over 2 minutes 1053 (Given - Provider: Kristine Simons RN) traZODone (DESYREL) tablet 50 mg 50 mg, oral, Nightly PRN, sleep, Starting on Wed12/04/24 at 1125 2025 (Given - Provider: Cj Morales RN) 2056 (Pump Refill - Provider: Nicole Alicia, BAO) Linked Groups Order Group 1: remdesivir (VEKLURY) 100 mg in sodium chloride 0.9 % 250 mL IVPB ()Jump to med 100 mg, intravenous, at 500 mL/hr, Administer over 30 Minutes, Every 24 hours, First dose on 12/02/24 at 1530, For 4 doses, Do not administer the prepared diluted solution simultaneously with any other medication. Flush IV line with 30 mL NS after the infusion is finished. And sodium chloride 0.9 % flush bag 30 mL (COMPLETED)Jump to med 30 mL, intravenous, Every 24 hours, First dose on Wed12/02/24 at 1600, For 4 doses, -Flush tubing used to administer remdesivir (VEKLURY) -Infuse at the same rate as remdesivir (VEKLURY) after remdesivir (VEKLURY) is infused to ensure complete dose is delivered Group 2: remdesivir (VEKLURY) 200 mg in sodium chloride 0.9 % 250 mL IVPB (COMPLETED) 200 mg, intravenous, at 500 mL/hr, Administer over 30 Minutes, Once, On Wed12/01/24 at 1530, For 1 dose, Do not administer the prepared diluted solution simultaneously with any other medication. Flush IV line with 30 mL NS after the infusion is finished. And sodium chloride 0.9 % flush bag 30 mLJump to med 30 mL, intravenous, Once, On Wed12/01/24 at 1600, For 1 dose, -Flush tubing used to administer remdesivir (VEKLURY) -Infuse at the same rate as remdesivir (VEKLURY) after remdesivir (VEKLURY) is infused to ensure complete dose is delivered documented in this encounter Orders Medications Ordered That Allen ht Not Have Been Administered Count Last Ordered Date First Ordered Date acetaminophen (TYLENOL) tablet 650 mg 1 01/2025 sodium chloride 0.9 % flush bag 30 mL 1 01/2025 General Supply Count Last Ordered Date First Or dered Date OXYGEN THERAPY 1 12/06/2024 Consult Count Last Ordered Date First Orde red Date POST ACUTE HOME HEALTH CARE REQUEST 1 12/07 Isolation Count Last Ordered Date First Orde red Date INITIATE AIRBORNE ISOLATION 1 12/01/2024 INITIATE DROPLET ISOLATION 1 12/01/2024 Respiratory Care Count Last Ordered Date First Ordered Date PEP THERAPY 2 12/06/2024 12/05/2024 Admission Count Last Ordered Date First Orde red Date ADMIT TO INPATIENT 1 12/01/2024 Transfer Count Last Ordered Date First Orde red Date TRANSFER PATIENT TO NEW UNIT 1 12/03/2024 ED TO FLOOR BED REQUEST 1 12/01/2024 Discharge Count Last Ordered Date First Orde red Date DISCHARGE PATIENT 1 12/07/2024 documented in this encounter Additional Health Concerns Infection Onset Date Last Indicated Resolved Time Respiratory Rule-Out 12/01/2024 12/01/2024 025 11:43 AM EST COVID-19 Rule-Out 12/01/2024 12/01/2024 12/01/2024 11:43 AM EST COVID-19 12/01/2024 12/01/2024 documented as of this encounter Care Teams Healthcare Representative Relationship Specialty Start Date End Date Amita Ruiz MD [address] [place] [address] PCP - General Internal Medicine 10/13/24 documented as of this encounter
--- OUTSIDE RECORDS SUMMARY | 2024-12-19 13:38 | XMS_ITS | Encounter Summary ---
Author Organization [facility] Address [address] [place] [address] Care Team Providers Care Sampler Tester Name Role Phone Amita Ruiz MD Primary Care Provider [phone] Reason for Visit * Reason Onset Date Comments has covid 12/01/2024 Encounter Details Date Type Department Care Team (Late st Contact Info) Description 12/01/2024 Telephone [facility] Radiation Oncology [address] [place] [phone] Hyacinth Pinzon, BAO has covid Social History Tobacco Use Types Packs/Day Years [...] on file documented as of this encounter Progress Notes * Hyacinth Pinzon RN - 12/01/2024 1:54 PM EST T/C from pt who is in ER. Pt reports that she has covid 19 and a-fib and was supposed to start radiation on Wednesday12/04/24. Spoke to Dr. Bourgeois. Pt's treatment start postponed until Wednesday12/11/24. Pt and [facility] RTT's aware. documented in this encounter Plan of Treatment Upcoming Encounters Date Type Department Care Team (Late st Contact Info) Description 12/20/2024 9:00 AM EST Appointment [facility] Radiation Oncology [address] [place] [phone] 12/21/2024 9:00 AM EST Appointment [facility] Radiation Oncology [address] [place] [phone] 12/22/2024 9:00 AM EST Appointment [facility] Radiation Oncology [address] [place] [phone] 12/22/2024 9:10 AM EST Appointment [facility] Radiation Oncology [address] [place] [phone] Radha Bourgeois MD [address] [place] [phone] 12/25/2024 9:00 AM EST Appointment [facility] Radiation Oncology [address] [place] [phone] 12/26/2024 9:00 AM EST Appointment [facility]iation Oncology [address] [place] [phone] 12/27/2024 9:00 AM EST Appointment [facility] Radiation Oncology [address] [place] [phone] 12/28/2024 9:00 AM EST Appointment [facility] Radiation Oncology [address] [place] [phone] 12/29/2024 9:00 AM EST Appointment [facility] Radiation Oncology [address] [place] [phone] 12/29/2024 9:10 AM EST Appointment [facility] Radiation Oncology [address] [place] [phone] Radha Bourgeois MD [address] [place] [phone] 01/01/2025 9:00 AM EST Appointment [facility] Radiation Oncology [address] [phone] 01/02/2025 9:00 AM EST Appointment [facility]iation Oncology [address] [place] [phone] 01/03/2025 9:00 AM EST Appointment [facility]iation Oncology [address] [place] [phone] 01/04/2025 9:00 AM EST Appointment [facility]iation Oncology [address] [place] [phone] 01/05/2025 9:00 AM EST Appointment [facility]iation Oncology [address] [place] [phone] 01/05/2025 9:10 AM EST Appointment [facility] Radiation Oncology [address] [place] [phone] Radha Bourgeois MD [address] [place] [phone] 01/08/2025 9:00 AM EST Appointment [facility] Radiation Oncology [address] [place] [phone] documented as of this encounter Visit Diagnoses Not on filedocumented in this encounter Additional Health Concerns Infection Onset Date Last Indicated Resolved Time Respiratory Rule-Out 12/01/2024 12/01/2024 025 11:43 AM EST COVID-19 Rule-Out 12/01/2024 12/01/2024 12/01/2024 11:43 AM EST COVID-19 12/01/2024 12/01/2024 documented as of this encounter Care Teams Sampler Tester Relationship Specialty Start Date End Date Amita Ruiz MD [address] [facility] [place] [phone] PCP - General Internal Medicine 10/13/24 documented as of this encounter
--- OUTSIDE RECORDS SUMMARY | 2024-12-19 13:39 | XMS_ITS | Patient Health Record ---
Author Organization [facility] Address [address] [place] [address] Care Team Providers Care Boiler Control Technician Name Role Phone Amita Ruiz MD Primary [...] both constipation and diarrhea (K58.2) Active confirmed [id number] Problem Colon cancer screening (Z12.11) Active confirmed [id number] PLAN OF TREATMENT Future Test Test Name Order Date COLONOSCOPY 09/20/2023 Insurance Providers Payer Name Payer Address Payer Phone Subscriber Number Group Number Insured Name Patient Relationship to Insured Coverage Start Date Coverage End Date [employer] [address] [place] [address] [id number] TIFFANY SOUZA Self - patient is the insured MEDICAL (GENERAL) HISTORY Medical History History ICD Code Hypertension Papillary thyroid carcinoma Uterine fibroids Microscopic hematuria QAMAR/CPAP Osteoporosis Atrial fibrillation Surgical History Surgery Date(Month/Year) Thyroidectomy, lymph node exploration an d removal partial hysterectomy 2016 Hospitalization History Reason Date(Month/Year) Atrial fibrillation with rapid ventricul ar response 01/21
--- OUTSIDE RECORDS SUMMARY | 2024-12-19 13:39 | XMS_ITS ---
Author Organization [facility] Address [address] [place] [phone] Care Team Providers Care Senior Internal Auditor Name Role Phone Amita Ruiz MD Primary Care Provider UnavailArie Royal Jr REASON FOR VISIT pathology Encounters Encounter Location Date Provider Diagnosis [facility] [address] [place] [phone] 11/04/2023 Arie Last Jr PLAN OF TREATMENT No Information
--- OUTSIDE RECORDS SUMMARY | 2024-12-19 13:39 | XMS_ITS ---
Author Organization [facility] Address [address] [place] [phone] Care Team Providers Care Box Feeder Name Role Phone Amita Ruiz MD Primary Care Provider Arie Eduardo Jr REASON FOR VISIT Xarelto Encounters Encounter Location Date Provider Diagnosis [facility] [address] [place] [phone] 09/22/2023 Arie Last Jr PLAN OF TREATMENT No Information
--- OUTSIDE RECORDS SUMMARY | 2024-12-19 13:39 | XMS_ITS ---
Author Organization [facility] Address [address] [place] [address] Care Team Providers Care Formal Service Waiter Name Role Phone Amita Ruiz MD Primary Care Provider Arie Eduardo Jr [phone] REASON FOR VISIT screening Encounters Encounter Location Date Provider Diagnosis [facility] [address] [place] [phone] 10/26/2023 Arie Last Jr Encounter for screening colonoscopy Z12.11 and Colon polyps K63.5 ASSESSMENTS Encounter Date Diagnosis Assessment Notes Treatment Notes Treatment Clinical Notes 10/26/2023 Encounter for screening colonoscopy (ICD-10 - Z12.11) 10/26/2023 Colon polyps (ICD-10 - K63.5) PLAN OF TREATMENT No Information
== END 2024-12-19 12:49 | disposition home or self-care (01) ==
PROVIDERS: PCP Internal Medicine; Visit Provider Internal Medicine
DX: I48.0 Paroxysmal atrial fibrillation (principal); I50.30 Unspecified diastolic (congestive) heart failure; E66.2 Morbid (severe) obesity with alveolar hypoventilation; Z68.42 Body mass index [BMI] 45.0-49.9, adult; C50.911 Malignant neoplasm of unspecified site of right female breast

== ENCOUNTER → 2024-12-19 11:53 | Outpatient (BNVA) | payer OTHER, SELFPAY | PROVIDERS: PCP Internal Medicine; Visit Provider Internal Medicine ==

== ENCOUNTER → 2024-12-21 10:41 | Outpatient (BNV) | payer OTHER, SELFPAY | PROVIDERS: Admitting Provider Hospitalist; Emergency Provider Emergency Medicine; PCP Internal Medicine; Visit Provider Internal Medicine Cardiovascular Disease | DX: R94.31 Abnormal electrocardiogram [ECG] [EKG] (principal) | CPT/HCPCS: 93010 ==

== ENCOUNTER → 2024-12-21 11:15 | Outpatient (BNV) | payer OTHER, SELFPAY | PROVIDERS: PCP Internal Medicine; Visit Provider Radiology Diagnostic Radiology | DX: M71.21 Synovial cyst of popliteal space [Baker], right knee (principal); R60.0 Localized edema; J98.6 Disorders of diaphragm | CPT/HCPCS: 71045; 93970 ==

== ENCOUNTER 2024-12-21 15:46 | Outpatient (BNV) | payer OTHER, SELFPAY | END 2024-12-22 07:00 | PROVIDERS: Admitting Provider Hospitalist; Emergency Provider Emergency Medicine; PCP Internal Medicine; Visit Provider Internal Medicine Cardiovascular Disease | DX: I36.1 Nonrheumatic tricuspid (valve) insufficiency (principal); I27.20 Pulmonary hypertension, unspecified | CPT/HCPCS: 93306 ==

== ENCOUNTER → 2024-12-21 15:46 | Outpatient (BNV) | payer OTHER, SELFPAY | PROVIDERS: Admitting Provider Hospitalist; Emergency Provider Emergency Medicine; PCP Internal Medicine; Visit Provider Internal Medicine Cardiovascular Disease | DX: I48.91 Unspecified atrial fibrillation (principal); I50.813 Acute on chronic right heart failure | CPT/HCPCS: 99233 ==

== ENCOUNTER → 2024-12-21 15:46 | Outpatient (BNV) | payer OTHER, SELFPAY | PROVIDERS: Admitting Provider Hospitalist; Emergency Provider Emergency Medicine; PCP Internal Medicine; Visit Provider Hospitalist | DX: I48.91 Unspecified atrial fibrillation (principal); M10.9 Gout, unspecified | CPT/HCPCS: 99232; 99233; 99239 ==

== ENCOUNTER 2025-01-03 13:31 | Outpatient (REF) | payer OTHER, SELFPAY ==
--- OUTSIDE RECORDS SUMMARY | 2025-01-03 15:31 | XMS_ITS | Encounter Summary ---
Author Organization [facility] Address [address] [place] [address] Care Team Providers Care Cartography Supervisor Name Role Phone Amita Ruiz MD Primary Care Provider Encounter Details Date Type Department Care Team (Latest Contact Info) Description 12/19/2024 8:52 AM EST - 12/19/2024 11:59 PM [facility] Hospital Encounter [facility] Radiation Oncology [address] [phone] Discharge Disposition: Home or Self [...] each day with dinner. Take with food. omeprazole (PriLOSEC) [address] capsule Take 1 capsule (20 mg total) by mouth 1 (one) time if needed. Do not crush or chew. documented as of this encounter Discharge Disposition Disposition Code Departure Means Destination Home or Self Care documented in this encounter Plan of Treatment Upcoming Encounters Date Type Department Care Team (Late st Contact Info) Description 01/04/2025 9:00 AM EST Appointment [facility] Radiation Oncology [address] [place] [phone] 01/05/2025 9:00 AM EST Appointment [facility] Radiation Oncology [address] [place] [phone] 01/05/2025 9:10 AM EST Appointment [facility] Radiation Oncology [address] [place] [phone] Radha Bourgeois MD [address] [place] [address] 01/08/2025 9:00 AM EST Appointment [facility] Radiation Oncology [address] [place] [phone] 01/09/2025 9:00 AM EST Appointment [facility] Radiation Oncology [address] [place] [phone] 01/10/2025 9:00 AM EST Appointment [facility] Radiation Oncology [address] [place] [phone] 01/11/2025 9:00 AM EST Appointment [facility] Radiation Oncology [address] [place] [phone] 01/12/2025 9:00 AM EST Appointment [facility] Radiation Oncology [address] [place] [phone] 01/12/2025 9:10 AM EST Appointment [facility] Radiation Oncology [address] [place] [phone] Radha Bourgeois MD [address] [place] [phone] 01/15/2025 9:00 AM EST Appointment [facility] Radiation Oncology [address] [place] [phone] 01/16/2025 9:00 AM EST Appointment [facility] Radiation Oncology [address] [place] [phone] 01/16/2025 9:10 AM EST Appointment [facility] Radiation Oncology [address] [place] [phone] Radha Bourgeois MD [address] [place] [phone] documented as of this encounter Procedures Procedure [...] documented as of this encounter Care Teams Cartography Supervisor Relationship Specialty Start Date End Date Amita Ruiz MD [address] [place] [phone] PCP - General Internal Medicine 10/13/24 documented as of this encounter
--- OUTSIDE RECORDS SUMMARY | 2025-01-03 15:31 | XMS_ITS | Encounter Summary ---
Author Organization [facility] Address [address] [place] [address] Care Team Providers Care Gun Club Manager Name Role Phone Amita Ruiz MD Primary Care Provider [phone] Encounter Details Date Type Department Care Team (Latest Contact Info) Description 12/20/2024 8:41 AM EST - 12/20/2024 11:59 PM [facility] Hospital Encounter [facility] Radiation Oncology [address] [phone] Discharge Disposition: Home or Self [...] Info) Description 01/04/2025 9:00 AM EST Appointment [facility] Radiation Oncology [address] [place] [phone] 01/05/2025 9:00 AM EST Appointment [facility] Radiation Oncology [address] [place] [phone] 01/05/2025 9:10 AM EST Appointment [facility] Radiation Oncology [address] [place] [phone] Radha Bourgeois MD [address] [place] [address] 01/08/2025 9:00 AM EST Appointment [facility] Radiation Oncology [address] [place] [phone] 01/09/2025 9:00 AM EST Appointment [facility] Radiation Oncology [address] [place] [phone] 01/10/2025 9:00 AM EST Appointment [facility] Radiation Oncology [address] [place] [phone] 01/11/2025 9:00 AM EST Appointment [facility] Radiation Oncology [address] [place] [phone] 01/12/2025 9:00 AM EST Appointment [facility] Radiation Oncology [address] [place] [phone] 01/12/2025 9:10 AM EST Appointment [facility] Radiation Oncology [address] [place] [phone] Radha Bourgeois MD [address] [place] [phone] 01/15/2025 9:00 AM EST Appointment [facility] Radiation Oncology [address] [place] [phone] 01/16/2025 9:00 AM EST Appointment [facility] Radiation Oncology [address] [place] [phone] 01/16/2025 9:10 AM EST Appointment [facility] Radiation Oncology [address] [place] [phone] Radha Bourgeois MD [address] [place] [phone] documented as of this encounter Procedures Procedure [...] documented as of this encounter Care Teams Gun Club Manager Relationship Specialty Start Date End Date Amita Ruiz MD [address] [place] [phone] PCP - General Internal Medicine 10/13/24 documented as of this encounter
--- OUTSIDE RECORDS SUMMARY | 2025-01-03 15:31 | XMS_ITS | Clinical Summary ---
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 Depression with anxiety 11/07/2024 Arthritis 11/07/2024 A-fib 11/07/2024 Hypothyroidism Resolved Problems Problem Noted Date Diagnosed Date Resolved Date Anemia 11/07/2024 11/07/2024 Encounters Date Type Department Care Team Description 01/03/2025 8:32 AM EST Hospital Encounter [facility] Radiation Oncology [address] [place] [address] 01/02/2025 8:47 AM EST Hospital Encounter [facility] Radiation Oncology [address] [place] [phone] 01/01/2025 8:28 AM EST Hospital Encounter [facility] Radiation Oncology [address] [place] [phone] 12/21/2024 8:35 AM EST - 12/21/2024 11:59 PM EST Hospital Encounter [facility] Radiation Oncology [address] [place] [phone] Discharge Disposition: Home or Self Care 12/20/2024 8:41 AM EST - 12/20/2024 11:59 PM EST Hospital Encounter [facility] Radiation Oncology [address] [place] [phone] Discharge Disposition: Home or Self Care 12/19/2024 8:52 AM EST - 12/19/2024 11:59 PM EST Hospital Encounter [facility] Radiation Oncology [address] [place] [phone] Discharge Disposition: Home or Self Care 12/18/2024 11:15 AM EST - 12/18/2024 11:59 PM EST Hospital Encounter [facility] Radiation Oncology [address] [place] [phone] Pari Martinez MD Discharge Disposition: Home or Self Care 12/18/2024 10:53 AM EST - 12/18/2024 11:59 PM EST Hospital Encounter [facility] Radiation Oncology [address] [place] [phone] Discharge Disposition: Home or Self Care 12/01/2024 11:09 AM EST - 12/01/2024 11:59 PM EST Hospital Encounter [facility] Radiation Oncology [address] [phone] Discharge Disposition: Home or Self Care 12/01/2024 9:30 AM EST - 12/07/2024 4:56 PM EST Hospital Encounter [facility] Intermediate Care Unit [address] [place] [phone] Josh Carranza MD Kela, Kashyap Devendrabhai, MD Rasul, Yar M, MD Surendran, Anupama, MD COVID (Primary Dx); Peripheral edema Discharge Disposition: Home-Health Care [facility] 12/01/2024 Telephone [facility] Radiation Oncology [address] [place] [phone] Hyacinth Pinzon, BAO has covid 11/16/2024 10:00 AM EST - 11/16/2024 11:59 PM EST Hospital Encounter [facility] Radiation Oncology [address] [place] [phone] Radha Bourgeois MD Malignant neoplasm of right breast in female, estrogen receptor positive, unspecified site of breast (CMS/HCC) Discharge Disposition: Home or Self Care 11/16/2024 9:13 AM EST - 11/16/2024 11:59 PM EST Hospital Encounter [facility] Radiation Oncology [address] [place] [phone] Malignant neoplasm of upper-outer quadrant of right breast in female, estrogen receptor positive (CMS/HCC) (Primary Dx) Discharge Disposition: Home or Self Care 11/09/2024 12:49 PM EST - 11/09/2024 11:59 PM EST Hospital Encounter [facility] Radiation Oncology [address] [place] [phone] Radha Bourgeois MD Malignant neoplasm of upper-outer quadrant of right breast in female, estrogen receptor positive (CMS/HCC) (Primary Dx); Malignant neoplasm of right breast in female, estrogen receptor positive, unspecified site of breast (CMS/HCC) Discharge Disposition: Home or Self Care 11/09/2024 12:36 PM EST - 11/09/2024 11:59 PM EST Hospital Encounter [facility] Radiation Oncology [address] [place] [phone] Discharge Disposition: Home or Self Care 10/13/2024 Telephone [facility] Radiation Oncology [address] [place] [address] [place] [phone] Elena Connelly MA from Last 3 Months Surgical History Surgery Date Site/Laterality Comments COLONOSCOPY BREAST LUMPECTOMY 09/20/2024 Right PARTIAL HYSTERECTOMY THYROIDECTOMY CYSTOSCOPY Medical History Medical History Date Comments Cancer (CMS/HCC) Gout A-fib ([facility]/HCC) Thyroid cancer ([facility]/HCC) Sleep apnea Reflux esophagitis Family History Medical [...] Info) Description 01/04/2025 9:00 AM EST Appointment [facility] Radiation Oncology [address] [phone] 01/05/2025 9:00 AM EST Appointment [facility] Radiation Oncology [address] [place] [phone] 01/05/2025 9:10 AM EST Appointment [facility] Radiation Oncology [address] [place] [phone] aRdha Bourgeois MD [address] [place] [phone] 01/08/2025 9:00 AM EST Appointment [facility] Radiation Oncology [address] [place] [phone] 01/09/2025 9:00 AM EST Appointment [facility] Radiation Oncology [address] [place] [phone] 01/10/2025 9:00 AM EST Appointment [facility] Radiation Oncology [address] [place] [phone] 01/11/2025 9:00 AM EST Appointment [facility] Radiation Oncology [address] [place] [phone] 01/12/2025 9:00 AM EST Appointment [facility] Radiation Oncology [address] [place] [phone] 01/12/2025 9:10 AM EST Appointment [facility] Radiation Oncology [address] [place] [phone] Radha Bourgeois MD [address] [place] [phone] 01/15/2025 9:00 AM EST Appointment [facility] Radiation Oncology [address] [place] [phone] 01/16/2025 9:00 AM EST Appointment [facility] Radiation Oncology [address] [place] [phone] 01/16/2025 9:10 AM EST Appointment [facility] Radiation Oncology [address] [place] [phone] Radha Bourgeois MD [address] [place] [phone] Health Maintenance Due Date Last Done Comments [...] RADIATIO N ONCOLOGY ORDERABLES Performing Organization Address City/[facility] Co de Phone Number MOSAIQ RADIATION [...] RADIATIO N ONCOLOGY ORDERABLES Performing Organization Address City/[facility]/ZIP Co de Phone Number MOSAIQ RADIATION ONCOLOGY [...] RADIATIO N ONCOLOGY ORDERABLES Performing Organization Address City/[facility]/ZIP Co de Phone Number MOS[facility] RADIATION ONCOLOGY [...] RADIATION ONCOLOGY Prescribed Number of Fractions 16 [facility] RADIATION ONCOLOGY 12/18/2024 11:2 0 AM EST Physician Radiation Oncology RADISETH N ONCOLOGY ORDERABLES ELIDA RADIATION ONCOLOGY * (ABNORMAL) CBC auto differential (12/07/2024 6:02 AM EST) Only the most recent of7 resultswithin the time period is included. WBC 15.5(H) 4.8 - 10.8 K/mcL LAB HEMETOLOGY METHOD 12/07/2024 7:21 AM [facility] RBC 3.30(L) 3.80 - 4.80 M/mcL LAB HEMETOLOGY METHOD 12/07/2024 7:21 AM [facility] Hemoglobin 9.3(L) 11.5 - 16.0 g/dL LAB HEMETOLOGY METHOD 12/07/2024 7:21 AM [facility] Hematocrit 32.0(L) 35.0 - 47.0 % LAB HEMETOLOGY METHOD 12/07/2024 7:21 AM [facility] MCV 97.6 79.0 - 98.0 FL LAB HEMETOLOGY METHOD 12/07/2024 7:21 AM [facility] MCH 28.4 27.0 - 32.0 pcg LAB HEMETOLOGY METHOD 12/07/2024 7:21 AM [facility] MCHC 29.1(L) 32.0 - 37.0 g/dL LAB HEMETOLOGY METHOD 12/07/2024 7:21 AM [facility] RDW 18.9(H) 11.0 - 15.0 % LAB HEMETOLOGY METHOD 12/07/2024 7:21 AM [facility] Platelets 390 130 - 400 K/mcL LAB HEMETOLOGY METHOD 12/07/2024 7:21 AM [facility] MPV 10.0 7.0 - 11.0 FL LAB HEMETOLOGY METHOD 12/07/2024 7:21 AM [facility] NRBC 0.5 <1.0 % LAB HEMETOLOGY METHOD 12/07/2024 7:21 AM [facility] NRBC Absolute 0.07 <0.10 K/mcL LAB HEMETOLOGY METHOD 12/07/2024 7:21 AM [facility] Neutrophils Relative 74.5 % LAB HEMETOLOGY METHOD 12/07/2024 7:21 AM [facility] Lymphocytes Relative 13.6 % LAB HEMETOLOGY METHOD 12/07/2024 7:21 AM [facility] Monocytes Relative 7.6 % LAB HEMETOLOGY METHOD 12/07/2024 7:21 AM [facility] Eosinophils Relative 0.0 % LAB HEMETOLOGY METHOD 12/07/2024 7:21 AM [facility] Basophils Relative 0.4 % LAB HEMETOLOGY METHOD 12/07/2024 7:21 AM [facility] Immature Granulocytes Relative 3.9 % LAB HEMETOLOGY METHOD 12/07/2024 7:21 AM [facility] Neutrophils Absolute 11.53(H) 1.50 - 7.00 K/mcL LAB HEMETOLOGY METHOD 12/07/2024 7:21 AM [facility] Lymphocytes Absolute 2.10 1.00 - 5.00 K/mcL LAB HEMETOLOGY METHOD 12/07/2024 7:21 AM [facility] Monocytes Absolute 1.18(H) 0.20 - 1.00 K/mcL LAB HEMETOLOGY METHOD 12/07/2024 7:21 AM [facility] Eosinophils Absolute 0.00 0.00 - 0.50 K/mcL LAB HEMETOLOGY METHOD 12/07/2024 7:21 AM EST [facility] Basophils Absolute 0.06 0.00 - 0.20 K/[facility] LAB HEMETOLOGY METHOD 12/07/2024 7:21 AM EST [facility] Immature Granulocytes Absolute 0.60(H) 0.00 - 0.03 K/mcL LAB HEMETOLOGY METHOD 12/07/2024 7:21 AM EST [facility] Blood Venous blood specimen / Unknown Venipuncture / Unknown 12/07/2024 6:02 AM EST 12/07/2024 6:51 AM EST Milagro WEBBER LAB BLOOD ORDERABLE S Performing Organization Address City/[facility]/ZIP Co de Phone Number [facility] [address] [place] [address], * Folate (12/07/2024 6:02 AM EST) Folate 13.9 2.8 - 17.0 ng/ml LAB CHEMISTRY METHOD 12/07/2024 9:35 AM EST [facility] Blood Venous blood specimen / Unknown Venipuncture / Unknown 12/07/2024 6:02 AM EST 12/07/2024 6:49 AM EST Nuria Marie MD LAB BLOOD ORDERABLE S [facility] [address] [place] [address], * Vitamin B12 (12/07/2024 6:02 AM EST) Vitamin B-12 698 250 - 900 pcg/mL LAB CHEMISTRY METHOD 12/07/2024 9:59 AM EST [facility] Blood Venous blood specimen / Unknown Venipuncture / Unknown 12/07/2024 6:02 AM EST 12/07/2024 6:49 AM EST Nuria Marie MD LAB BLOOD ORDERABLE S [facility] [address] [place] [address], * (ABNORMAL) Basic metabolic panel (12/07/2024 6:02 AM EST) Only the most recent of7 resultswithin the time period is included. Sodium 139 133 - 145 mmol/L LAB CHEMISTRY METHOD 12/07/2024 7:57 AM EST [facility] Potassium 4.5 3.5 - 5.5 mmol/L LAB CHEMISTRY METHOD 12/07/2024 7:57 AM [facility] Chloride 96 96 - 110 mmol/L LAB CHEMISTRY METHOD 12/07/2024 7:57 AM [facility] CO2 38(H) 21 - 32 mmol/L LAB CHEMISTRY METHOD 12/07/2024 7:57 AM [facility] Anion Gap 5 3 - 11 LAB CHEMISTRY METHOD 12/07/2024 7:57 AM [facility] Glucose 153(H) 70 - 100 mg/dL LAB CHEMISTRY METHOD 12/07/2024 7:57 AM [facility] BUN 31(H) 5 - 25 mg/dL LAB CHEMISTRY METHOD 12/07/2024 7:57 AM [facility] Creatinine 1.22(H) 0.50 - 1.10 mg/dL LAB CHEMISTRY METHOD 12/07/2024 7:57 AM [facility] eGFR 50(L) >=60 mL/min/1. 73m2 LAB CHEMISTRY METHOD 12/07/2024 7:57 AM [facility] Comment:Calculation based on the??Chronic Kidney Disease Epidemiology Collaboration (CKD-EPI) equation refit??without adjustment for race. BUN/Creatinine Ratio 25.4 LAB CHEMISTRY METHOD 12/07/2024 7:57 AM [facility] Calcium 8.7 8.5 - 10.5 mg/dL LAB CHEMISTRY METHOD 12/07/2024 7:57 AM EST [facility] Blood Venous blood specimen / Unknown Venipuncture / Unknown 12/07/2024 6:02 AM EST 12/07/2024 6:49 AM EST Milagro WEBBER LAB BLOOD ORDERABLE S [facility] ([facility]) [facility] [address] [place] [address], [place] [phone] * TRANSTHORACIC ECHOCARDIOGRAM (TTE) COMPLETE W/ CONTRAST (12/05/2024 11:01 AM EST) Left Atrium Minor Mumford 5.6 cm CV PACS Left Atrium Major Mumford 5.5 cm CV PACS LA Area Sys [...] LAB CHEMISTRY METHOD 12/05/2024 7:40 AM EST [facility] Blood Venous blood specimen / Unknown Venipuncture / Unknown 12/05/2024 6:19 AM EST 12/05/2024 6:59 AM EST Milagro WEBBER LAB BLOOD ORDERABLE S [facility] [address] [place] [address], * XR Chest 1 View (12/03/2024 7:33 PM EST) Anatomical Region Laterality Modality Body Radiographic Dahiana ging 12/04/2024 9:28 AM EST Impressions 12/04/2024 9:32 AM EST Impression: 1. Stable right hemidiaphragmatic elevation since 2019. 2. Lungs grossly clear. Telerad AKBAR ([id number]) -------- FINAL REPORT -------- Dictated By: Keiko Dyson Dictated Date: 12/04/2024 09:28 ET Assigned Physician: Keiko Dyson Reviewed and Electronically Signed By: Keiko Dyson Signed Date: 12/04/2024 09:32 ET Workstation ID: [id number] Transcribed By: Self Edit Transcribed Date: 12/04/2024 [...] 2019. 2. Lungs grossly clear. Telelula WEBBER ([id number]) -------- FINAL REPORT -------- Dictated By: Keiko Dyson Dictated Date: 12/04/2024 09:28 ET Assigned Physician: Keiko Dyson Reviewed and Electronically Signed By: Keiko Dyson Signed Date: 12/04/2024 09:32 ET Workstation ID: [id number] Transcribed By: Self Edit Transcribed Date: 12/04/2024 09:28 ET Angelic WEBBER IMG XR PROCEDURES * ECG 12 lead (12/03/2024 7:00 PM EST) Only the most recent of2 resultswithin the time period is included. Ventricular Rate ECG 101 BPM GEMUSE Atrial Rate 125 BPM GEMUSE QRS Duration 142 ms GEMUSE Q-T Interval 390 ms GEMUSE QTc 505 ms GEMUSE R Mumford 79 degrees GEMUSE T Mumford 33 degrees GEMUSE ECG Interpretation Atrial fibrillation [...] LAB CHEMISTRY METHOD 12/02/2024 10:29 AM EST [facility] Blood Venous blood specimen / Unknown Venipuncture / Unknown 12/02/2024 9:18 AM EST 12/02/2024 9:45 AM EST [facility] - 12/02/2024 10:29 AM EST Procalcitonin [...] if any concentrations <2.0 ng/mL are obtained. [facility] LAB BLOOD ORDERAB LES Performing Organization Address City/[facility] Co de Phone Number [facility] [address] [place] [address], * Thyroid stimulating hormone (12/02/2024 9:18 AM EST) TSH 1.95 0.40 - 4.00 mcIU/mL LAB CHEMISTRY METHOD 12/02/2024 11:45 AM EST [facility] Blood Venous blood specimen / Unknown Venipuncture / Unknown 12/02/2024 9:18 AM EST 12/02/2024 9:44 AM EST [facility] LAB BLOOD ORDERAB LES Performing Organization Address [facility]/ZIP Co de Phone Number [facility] [address] [place] [address], * Lactate (12/02/2024 9:18 AM EST) Only the most recent of2 resultswithin the time period is included. Lactate 1.4 0.4 - 2.0 mmol/L LAB CHEMISTRY METHOD 12/02/2024 10:08 AM EST [facility] Blood Venous blood specimen / Unknown Venipuncture / Unknown 12/02/2024 9:18 AM EST 12/02/2024 9:45 AM EST Raheel WEBBER LAB BLOOD ORDERAB LES [facility] [address] [place] [address], [place] [phone] * Culture blood (12/01/2024 4:05 PM EST) Only the most recent of2 resultswithin the time period is included. [facility] Culture, Blood No growth at 5 days 12/06/2024 5:01 PM EST [facility] Blood Venous blood specimen / Unknown Venipuncture / Unknown 12/01/2024 4:05 PM EST 12/01/2024 4:13 PM EST Giovana WEBBER LAB MICROBIOLOGY - G ENERAL ORDERABLES Performing Organization Address [facility]/ZIP Co de Phone Number [facility] [address] [place] [address], [place] [phone] * (ABNORMAL) Prothrombin time with INR (12/01/2024 2:57 PM EST) [facility] Protime 19.8(H) 10.6 - 13.9 sec LAB COAGULATION METHOD 12/01/2024 3:24 PM EST [facility] INR 1.6 LAB COAGULATION METHOD 12/01/2024 3:24 PM EST [facility] Blood Venous blood specimen / Unknown Venipuncture / Unknown 12/01/2024 2:57 PM EST 12/01/2024 3:02 PM EST Giovana WEBBER LAB BLOOD ORDERABLES Performing Organization Address City/[facility]/ZIP Co de Phone Number [facility] [address] [place] [address], [place] [phone] * (ABNORMAL) B-type natriuretic peptide (12/01/2024 2:57 PM EST) BNP 542(H) <=100 pcg/mL LAB CHEMISTRY METHOD 12/01/2024 3:42 PM EST [facility] ([facility]) [facility] Blood Venous blood specimen / Unknown Venipuncture / Unknown 12/01/2024 2:57 PM EST 12/01/2024 3:02 PM EST Giovana WEBBER LAB BLOOD ORDERABLES [facility] ([facility]) [facility] [address] [place] [address], [place] [phone] * CT Angio Chest wo and/or w [...] Signed Date: 12/01/2024 11:56 ET Workstation ID: [id number] Transcribed By: Self Edit Transcribed Date: 12/01/2024 [...] Signed Date: 12/01/2024 11:56 ET Workstation ID: [id number] Transcribed By: Self Edit Transcribed Date: 12/01/2024 11:53 ET Ailyn WEBBER G CT PROCEDURES * Troponin I high sensitivity (12/01/2024 10:12 AM EST) [facility] High Sensitivity Troponin I 7 <=54 ng/L LAB CHEMISTRY METHOD 12/01/2024 11:03 AM EST [facility] Blood Venous blood specimen / Unknown Venipuncture / Unknown 12/01/2024 10:12 AM EST 12/01/2024 10:30 AM EST Narrative [facility] - 12/01/2024 11:03 AM EST High levels of biotin in samples may falsely decrease hsTroponin values. ??Use caution when interpreting hsTroponin results in patients taking biotin who exhibit renal impairment (eGFR <60) or in patients taking more than 20 mg/day of biotin. Josh Carranza MD LAB BLOOD ORDERABLE S Performing Organization Address City/[facility]/ZIP Co de Phone Number [facility] [address] [place] [address], [place] [phone] * Vitamin B12 and folate (12/01/2024 10:12 AM EST) [facility] Vitamin B-12 468 250 - 900 pcg/mL LAB CHEMISTRY METHOD 12/01/2024 4:12 PM EST [facility] Folate 10.4 2.8 - 17.0 ng/ml LAB CHEMISTRY METHOD 12/01/2024 4:12 PM EST [facility] Blood Venous blood specimen / Unknown Venipuncture / Unknown 12/01/2024 10:12 AM EST 12/01/2024 10:30 AM EST Giovana WEBBER LAB BLOOD ORDERABLES [facility] [address] [place] [address], [place] [phone] * (ABNORMAL) Manual differential (12/01/2024 10:12 AM EST) Neutrophils % 90.0 % LAB HEMETOLOGY METHOD 12/01/2024 11:16 AM [facility] Lymphocytes % 6.0 % LAB HEMETOLOGY METHOD 12/01/2024 11:16 AM [facility] Monocytes % 4.0 % LAB HEMETOLOGY METHOD 12/01/2024 11:16 AM [facility] Eosinophils % 0.0 % LAB HEMETOLOGY METHOD 12/01/2024 11:16 AM [facility] Basophils % 0.0 % LAB HEMETOLOGY METHOD 12/01/2024 11:16 AM [facility] Neutrophils Absolute Manual 20.70(H) 1.50 - 7.00 K/mcL LAB HEMETOLOGY METHOD 12/01/2024 11:16 AM [facility] Lymphocytes Absolute 1.38 1.00 - 5.00 K/mcL LAB HEMETOLOGY METHOD 12/01/2024 11:16 AM [facility] Monocytes Absolute Manual 0.92 0.20 - 1.00 K/mcL LAB HEMETOLOGY METHOD 12/01/2024 11:16 AM [facility] Eosinophils Absolute Manual 0.00 0.00 - 0.50 K/mcL LAB HEMETOLOGY METHOD 12/01/2024 11:16 AM [facility] Basophils Absolute Manual 0.00 0.00 - 0.20 K/mcL LAB HEMETOLOGY METHOD 12/01/2024 11:16 AM [facility] Rbc Morphology Present( A) Consistent with indices, Normal for LAB HEMETOLOGY METHOD 12/01/2024 11:16 AM [facility] Comment:RBC: Morphology agre es with CBC Platelet Morphology - WAM See Note(A) Normal LAB HEMETOLOGY METHOD 12/01/2024 11:16 AM [facility] Comment:PLT: Normal Polychromasia Present Present( A) (none) LAB HEMETOLOGY METHOD 12/01/2024 11:16 AM EST [facility] Blood Venous blood specimen / Unknown Venipuncture / Unknown 12/01/2024 10:12 AM EST 12/01/2024 10:30 AM EST Ailyn WEBBER LAB BLOOD ORDERABLES [facility] [address] [place] [address], [place] [phone] * (ABNORMAL) Iron and TIBC (12/01/2024 10:12 AM EST) Iron 19(L) 40 - 150 mcg/dL LAB CHEMISTRY METHOD 12/01/2024 2:49 PM EST [facility] TIBC 428 250 - 450 mcg/dL LAB CHEMISTRY METHOD 12/01/2024 2:49 PM EST [facility] Iron Saturation 4(L) 15 - 50 % LAB CHEMISTRY METHOD 12/01/2024 2:49 PM EST [facility] Blood Venous blood specimen / Unknown Venipuncture / Unknown 12/01/2024 10:12 AM EST 12/01/2024 10:30 AM EST Giovana WEBBER LAB BLOOD ORDERABLES [facility] [address] [place] [address], [place] [phone] * Ferritin (12/01/2024 10:12 AM EST) Ferritin 31 8 - 252 ng/mL LAB CHEMISTRY METHOD 12/01/2024 3:23 PM EST [facility] Blood Venous blood specimen / Unknown Venipuncture / Unknown 12/01/2024 10:12 AM EST 12/01/2024 10:30 AM EST Giovana WEBBER LAB BLOOD ORDERABLES [facility] [address] [place] [address], [place] [phone] * Hepatic function panel (12/01/2024 10:12 AM EST) Total Protein 6.5 6.0 - 8.0 g/dL LAB CHEMISTRY METHOD 12/01/2024 2:37 PM EST [facility] Albumin 3.3 3.2 - 5.0 g/dL LAB CHEMISTRY METHOD 12/01/2024 2:37 PM EST [facility] Total Bilirubin 0.5 0.0 - 1.4 mg/dL LAB CHEMISTRY METHOD 12/01/2024 2:37 PM [facility] Bilirubin, Direct 0.1 0.0 - 0.3 mg/dL LAB CHEMISTRY METHOD 12/01/2024 2:37 PM EST [facility] Bilirubin, Indirect 0.4 0.0 - 1.1 mg/dL LAB CHEMISTRY METHOD 12/01/2024 2:37 PM [facility] ALT (SGPT) 21 10 - 60 unit/L LAB CHEMISTRY METHOD 12/01/2024 2:37 PM [facility] AST (SGOT) 12 10 - 42 unit/L LAB CHEMISTRY METHOD 12/01/2024 2:37 PM EST [facility] Alkaline Phosphatase 68 42 - 121 unit/L LAB CHEMISTRY METHOD 12/01/2024 2:37 PM EST [facility] Blood Venous blood specimen / Unknown Venipuncture / Unknown 12/01/2024 10:12 AM EST 12/01/2024 10:30 AM EST Giovana WEBBER LAB BLOOD ORDERABLES [facility] [address] [place] [address], [place] [phone] * (ABNORMAL) Respiratory virus panel molecular study (12/01/2024 10:06 AM EST) Pathologist [facility] Adenovirus Detection by PCR Not Detected Not Detected LAB MICROBIOLOGY METHOD 12/01/2024 11:43 AM [facility] Influenza A PCR Not Detected Not Detected LAB MICROBIOLOGY METHOD 12/01/2024 11:43 AM [facility] Influenza B PCR Not Detected Not Detected LAB MICROBIOLOGY METHOD 12/01/2024 11:43 AM [facility] Coronavirus 229E Not Detected Not Detected LAB MICROBIOLOGY METHOD 12/01/2024 11:43 AM [facility] Coronavirus HKU1 Not Detected Not Detected LAB MICROBIOLOGY METHOD 12/01/2024 11:43 AM [facility] Coronavirus OC43 Not Detected Not Detected LAB MICROBIOLOGY METHOD 12/01/2024 11:43 AM [facility] Coronavirus NL63 Not Detected Not Detected LAB MICROBIOLOGY METHOD 12/01/2024 11:43 AM [facility] Parainfluenza Virus 1 Not Detected Not Detected LAB MICROBIOLOGY METHOD 12/01/2024 11:43 AM [facility] Parainfluenza Virus 2 Not Detected Not Detected LAB MICROBIOLOGY METHOD 12/01/2024 11:43 AM [facility] Parainfluenza Virus 3 Not Detected Not Detected LAB MICROBIOLOGY METHOD 12/01/2024 11:43 AM [facility] Parainfluenza Virus 4 Not Detected Not Detected LAB MICROBIOLOGY METHOD 12/01/2024 11:43 AM [facility] RSV PCR Not Detected Not Detected LAB MICROBIOLOGY METHOD 12/01/2024 11:43 AM [facility] Human Metapneumovirus A and B Not Detected Not Detected LAB MICROBIOLOGY METHOD 12/01/2024 11:43 AM [facility] Rhinovirus/Entero virus Not Detected Not Detected LAB MICROBIOLOGY METHOD 12/01/2024 11:43 AM [facility] Bordetella pertussis Not Detected Not Detected LAB MICROBIOLOGY METHOD 12/01/2024 11:43 AM EST [facility] Bordetella parapertussis Not Detected Not Detected LAB MICROBIOLOGY METHOD 12/01/2024 11:43 AM EST [facility] Mycoplasma pneumo by PCR Not Detected Not Detected LAB MICROBIOLOGY METHOD 12/01/2024 11:43 AM EST [facility] Chlamydia pneumoniae Not Detected Not Detected LAB MICROBIOLOGY METHOD 12/01/2024 11:43 AM [facility] SARS COV-2 Detected(A ) Not Detected LAB MICROBIOLOGY METHOD 12/01/2024 11:43 AM [facility] Swab Both anterior nares / Unknown Non-blood Collection / Unknown 12/01/2024 10:06 AM EST 12/01/2024 10:13 AM EST [facility] - 12/01/2024 11:43 AM EST Testing was performed using the [employer] Respiratory Pathogen PCR Assay. All results must [...] WEBBER LAB MICROBIOLOGY - G ENERAL ORDERABLES [facility] [address] [place] [address], * ECG-Outside (12/01/2024) Only the most recent [...] currently active code status orders. Care Teams Timber Girdler Relationship Specialty Start Date End Date Amita Ruiz MD [address] [place] [address] PCP - General Internal Medicine 10/13/24
--- OUTSIDE RECORDS SUMMARY | 2025-01-03 15:31 | XMS_ITS | Encounter Summary ---
Author Organization [facility] Address [address] [place] [address] Care Team Providers Care Tack Coverer Name Role Phone Amita Ruiz MD Primary Care Provider [phone] Encounter Details Date Type Department Care Team (Latest Contact Info) Description 12/18/2024 11:15 AM EST - 12/18/2024 11:59 PM [facility] Hospital Encounter [facility] Radiation Oncology [address] [facility] [address] 2nd [place] [address] Pari Martinez MD [address] [place] [address] Discharge Disposition: Home or Self Care Social [...] EST Appointment [facility] [address] [place] [phone] 01/05/2025 9:00 AM EST Appointment [facility] [address] [place] [phone] 01/05/2025 9:10 AM EST Appointment [facility] [address] [place] [phone] Radha Bourgeois MD [address] [place] [address] 01/08/2025 9:00 AM EST Appointment [facility] [address] [place] [phone] 01/09/2025 9:00 AM EST Appointment [facility] [address] [place] [phone] 01/10/2025 9:00 AM EST Appointment [facility] Oncology [address] [place] [phone] 01/11/2025 9:00 AM EST Appointment [facility] [address] [place] [phone] 01/12/2025 9:00 AM EST Appointment [facility] [address] [place] [phone] 01/12/2025 9:10 AM EST Appointment [facility] [address] [place] [phone] Radha Bourgeois MD [address] [place] [phone] 01/15/2025 9:00 AM EST Appointment [facility] [address] [place] [phone] 01/16/2025 9:00 AM EST Appointment [facility] [address] [place] [phone] 01/16/2025 9:10 AM EST Appointment [facility] [address] [place] [phone] Radha Bourgeois MD [address] [place] [phone] documented as of this encounter Visit Diagnoses Not on filedocumented in this encounter Additional Health Concerns Infection Onset Date Last Indicated Resolved Time COVID-19 12/01/2024 12/01/2024 12/31/2024 7:04 PM EST documented as of this encounter Care Teams Tack Coverer Relationship Specialty Start Date End Date Amita Ruiz MD [address] [place] [phone] PCP - General Internal Medicine 10/13/24 documented as of this encounter
--- OUTSIDE RECORDS SUMMARY | 2025-01-03 15:31 | XMS_ITS | Encounter Summary ---
Author Organization [facility] Address [address] [place] [address] Care Team Providers Care Marketing Associate Name Role Phone Amita Ruiz MD Primary Care Provider Encounter Details Date Type Department Care Team (Latest Contact Info) Description 12/18/2024 10:53 AM EST - 12/18/2024 11:59 PM [facility] Hospital Encounter [facility] Radiation Oncology [address] [phone] Discharge Disposition: Home or Self [...] Info) Description 01/04/2025 9:00 AM EST Appointment [facility]iation Oncology [address] [place] [phone] 01/05/2025 9:00 AM EST Appointment [facility]iation Oncology [address] [place] [phone] 01/05/2025 9:10 AM EST Appointment [facility]iation Oncology [address] [place] [phone] Radha Bourgeois MD [address] [place] [address] 01/08/2025 9:00 AM EST Appointment [facility]iation Oncology [address] [place] [phone] 01/09/2025 9:00 AM EST Appointment [facility]iation Oncology [address] [place] [phone] 01/10/2025 9:00 AM EST Appointment [facility] Radiation Oncology [address] [place] [phone] 01/11/2025 9:00 AM EST Appointment [facility] Radiation Oncology [address] [place] [phone] 01/12/2025 9:00 AM EST Appointment [facility] Radiation Oncology [address] [place] [phone] 01/12/2025 9:10 AM EST Appointment [facility] Radiation Oncology [address] [place] [phone] Radha Bourgeois MD [address] [place] [address] 01/15/2025 9:00 AM EST Appointment [facility] Radiation Oncology [address] [place] [phone] 01/16/2025 9:00 AM EST Appointment [facility]iation Oncology [address] [place] [phone] 01/16/2025 9:10 AM EST Appointment [facility] Radiation Oncology [address] [place] [phone] Radha Bourgeois MD [address] [place] [phone] documented as of this encounter Procedures Procedure [...] documented as of this encounter Care Teams Marketing Associate Relationship Specialty Start Date End Date Amita Ruiz MD [address] [place] [phone] PCP - General Internal Medicine 10/13/24 documented as of this encounter
--- OUTSIDE RECORDS SUMMARY | 2025-01-03 15:31 | XMS_ITS ---
Author Organization [facility] Address [address] [place] [address] Phone Care Team Providers Care Terminal Operations Manager Name Role Phone Amita Ruiz MD Primary Care Provider [phone] Active Problems Problem Noted Date Diagnosed Date COVID-19 12/01/2024 Acute hypoxemic respiratory failure due to COVID -19 12/01/2024 Malignant neoplasm of upper- outer quadrant of right breast in female, estrogen receptor positive 11/09/2024 Cancer Staging:Pathologic:Stage IA(pT1c, pN0, cM0, G1, ER+, IL+, HER2-) - Signed by Radha Bourgeois MD [...]
--- OUTSIDE RECORDS SUMMARY | 2025-01-03 15:31 | XMS_ITS | Encounter Summary ---
Author Organization [facility] Address [address] [place] [address] Care Team Providers Care Textile Broker Name Role Phone Amita Ruiz MD Primary Care Provider [phone] Encounter Details Date Type Department Care Team (Latest Contact Info) Description 12/21/2024 8:35 AM EST - 12/21/2024 11:59 PM [facility] Hospital Encounter [facility] Radiation Oncology [address] [phone] Discharge Disposition: Home or Self [...] Info) Description 01/04/2025 9:00 AM EST Appointment [facility] Radiation Oncology [address] [place] [phone] 01/05/2025 9:00 AM EST Appointment [facility] Radiation Oncology [address] [place] [phone] 01/05/2025 9:10 AM EST Appointment [facility] Radiation Oncology [address] [place] [phone] Radha Bourgeois MD [address] [place] [address] 01/08/2025 9:00 AM EST Appointment [facility] Radiation Oncology [address] [place] [phone] 01/09/2025 9:00 AM EST Appointment [facility] Radiation Oncology [address] [place] [phone] 01/10/2025 9:00 AM EST Appointment [facility] Radiation Oncology [address] [place] [phone] 01/11/2025 9:00 AM EST Appointment [facility] Radiation Oncology [address] [place] [phone] 01/12/2025 9:00 AM EST Appointment [facility] Radiation Oncology [address] [place] [phone] 01/12/2025 9:10 AM EST Appointment [facility] Radiation Oncology [address] [place] [phone] Radha Bourgeois MD [address] [place] [address] 01/15/2025 9:00 AM EST Appointment [facility] Radiation Oncology [address] [place] [phone] 01/16/2025 9:00 AM EST Appointment [facility] Radiation Oncology [address] [place] [phone] 01/16/2025 9:10 AM EST Appointment [facility] Radiation Oncology [address] [place] [phone] Radha Bourgeois MD [address] [place] [phone] documented as of this encounter Procedures Procedure [...] documented as of this encounter Care Teams Textile Broker Relationship Specialty Start Date End Date Amita Ruiz MD [address] [place] [phone] PCP - General Internal Medicine 10/13/24 documented as of this encounter
--- OUTSIDE RECORDS SUMMARY | 2025-01-03 15:32 | XMS_ITS | Encounter Summary ---
Author Organization [facility] Address [address] [place] [address] Care Team Providers Care Manual Writer Name Role Phone Amita Ruiz MD Primary Care Provider [phone] Encounter Details Date Type Department Care Team (Late Contact Info) Description 01/02/2025 8:47 AM EST Hospital Encounter [facility] Radiation Oncology [address] [place] [phone] Social History Tobacco Use Types Packs/Day Years [...] Description 01/04/2025 9:00 AM EST Appointment [facility] Radiation Oncology [address] [place] [phone] 01/05/2025 9:00 AM EST Appointment [facility] Radiation Oncology [address] [phone] 01/05/2025 9:10 AM EST Appointment [facility] Radiation Oncology [address] [place] [phone] Radha Bourgeois MD [address] [place] [address] 01/08/2025 9:00 AM EST Appointment [facility] Radiation Oncology [address] [place] [phone] 01/09/2025 9:00 AM EST Appointment [facility] Radiation Oncology [address] [place] [phone] 01/10/2025 9:00 AM EST Appointment [facility] Radiation Oncology [address] [place] [phone] 01/11/2025 9:00 AM EST Appointment [facility] Radiation Oncology [address] [place] [phone] 01/12/2025 9:00 AM EST Appointment [facility] Radiation Oncology [address] [place] [phone] 01/12/2025 9:10 AM EST Appointment [facility] Radiation Oncology [address] [place] [phone] Radha Bourgeois MD [address] [place] [address] 01/15/2025 9:00 AM EST Appointment [facility] Radiation Oncology [address] [place] [phone] 01/16/2025 9:00 AM EST Appointment [facility] Radiation Oncology [address] [place] [phone] 01/16/2025 9:10 AM EST Appointment [facility] Radiation Oncology [address] [place] [phone] Radha Bourgeois MD [address] [place] [phone] documented as of this encounter Procedures Procedure [...] RADIATIO N ONCOLOGY ORDERABLES Performing Organization Address City/State/[facility] Co de Phone Number [facility] documented in this encounter Visit Diagnoses Not on filedocumented in this encounter Care Teams Manual Writer Relationship Specialty Start Date End Date Amita Ruiz MD [address] [place] [phone] PCP - General Internal Medicine 10/13/24 documented as of this encounter
--- OUTSIDE RECORDS SUMMARY | 2025-01-03 15:32 | XMS_ITS | Encounter Summary ---
Author Organization [facility] Address [address] [place] [address] Care Team Providers Care Proof Machine Operator Supervisor Name Role Phone Amita Ruiz MD Primary Care Provider [phone] Encounter Details Date Type Department Care Team (Late Contact Info) Description 01/03/2025 8:32 AM EST Hospital Encounter [facility] Radiation Oncology [address] [place] [phone] Social History Tobacco Use Types Packs/Day Years [...] Info) Description 01/04/2025 9:00 AM EST Appointment [facility] Radiation Oncology [address] [phone] 01/05/2025 9:00 AM EST Appointment [facility] Radiation Oncology [address] [phone] 01/05/2025 9:10 AM EST Appointment [facility] Radiation Oncology [address] [phone] Radha Bourgeois MD [address] [place] [address] 01/08/2025 9:00 AM EST Appointment [facility] Radiation Oncology [address] [place] [phone] 01/09/2025 9:00 AM EST Appointment [facility] Radiation Oncology [address] [place] [phone] 01/10/2025 9:00 AM EST Appointment [facility] Radiation Oncology [address] [place] [phone] 01/11/2025 9:00 AM EST Appointment [facility] Radiation Oncology [address] [place] [phone] 01/12/2025 9:00 AM EST Appointment [facility] Radiation Oncology [address] [place] [phone] 01/12/2025 9:10 AM EST Appointment [facility] Radiation Oncology [address] [place] [phone] Radha Bourgeois MD [address] [place] [phone] 01/15/2025 9:00 AM EST Appointment [facility] Radiation Oncology [address] [place] [phone] 01/16/2025 9:00 AM EST Appointment [facility] Radiation Oncology [address] [place] [phone] 01/16/2025 9:10 AM EST Appointment [facility] Radiation Oncology [address] [place] [phone] Radha Bourgeois MD [address] [place] [phone] documented as of this encounter Procedures Procedure [...] RADIATIO N ONCOLOGY ORDERABLES Performing Organization Address City/State/[facility] Co de Phone Number [facility] documented in this encounter Visit Diagnoses Not on filedocumented in this encounter Care Teams Proof Machine Operator Supervisor Relationship Specialty Start Date End Date Amita Ruiz MD [address] [place] [phone] PCP - General Internal Medicine 10/13/24 documented as of this encounter
--- OUTSIDE RECORDS SUMMARY | 2025-01-03 15:32 | XMS_ITS | Encounter Summary ---
Author Organization [facility] Address [address] [place] [address] Care Team Providers Care Geospatial Analyst Name Role Phone Amita Ruiz MD Primary Care Provider [phone] Reason for Visit * Reason Comments Cough Chest Pain * Auth/Cert (Routine) Specialty Diagnoses / Procedures Referred By Contac t Referred To Contact Diagnoses COVID-19 Acute hypoxemic respiratory failure due to COVID-19 ([facility]) Procedures [facility] IP/OBS CARE INITIAL MODERATE LEVEL PER DAY . Fermin Ibanez MD [address] [place] [address] [facility] Emergency [address] [place] [address] Referral ID Status Reason Start Date Expiration Date Visits Re quested Visits Authorized [id number] 1 1 Encounter Details Date Type Department Care Team (Latest Contact Info) Description 12/01/2024 9:30 AM EST - 12/07/2024 4:56 PM [facility] Hospital Encounter [facility] Intermediate Care Unit [address] [place] [phone] Josh Carranza MD [address] [address] Fermin Ibanez MD [address] [place] [address] Neftaly Gabriel MD [address] [place] [address] Nuria Marie MD [address] [place] [phone] COVID (Primary Dx); Peripheral edema Discharge [...] Patient be transferred to the care of [facility] staff for further management of their acute [...] diet, daily weight monitoring. Follow-up with primary chicken stuffer outpatient. Recommend KEVIN stockings daily, remove at [...] metoprolol tartrate 100 mg twice daily and [id number] mg daily. Follow-up with primary chicken stuffer outpatient. Epistaxis had mild intermittent epistaxis in the setting of oxygen use. H&H remains stable 9.3/32.0. Thyroid cancer status post thyroidectomy: Continue levothyroxine Outpatient Follow-Up Care: Future Appointments Date Time Provider Department Center 12/11/2024 11:30 AM [facility] RADIATION TREATMENT [facility] 12/11/2024 11:45 AM Vinay Lorenzo MD [facility] 12/12/2024 9:00 AM [facility] RAD[facility] TRE[facility] 12/13/2024 9:00 AM [facility] RAD[facility]ATION TREATMENT [facility] 12/14/2024 9:00 AM [facility] RAD[facility] TRE[facility] 12/15/2024 9:00 AM [facility] RAD[facility]ATION TREATMENT [facility] 12/15/2024 9:10 AM Radha Bourgeois MD [facility] 12/18/2024 9:00 AM [facility] RAD[facility] TRE[facility] 12/19/2024 9:00 AM [facility] RAD[facility] TRE[facility] 12/20/2024 9:00 AM [facility] [...] Your Medications These medications were sent to [facility]/pharmacy #[id number] - [place] - [address] [place] [address] Hours: 24-hours dexAMETHasone 1 mg tablet dilTIAZem [...] mg once daily Follow-up with your primary chicken stuffer closely outpatient Monitor your weight daily. Notify your chicken stuffer if you gain 3 pounds in 1 [...] 2019. 2. Lungs grossly clear. Telerad PA ([id number]) -------- FINAL REPORT -------- Dictated By: Keiko Dyson Dictated Date: 12/04/2024 09:28 ET Assigned Physician: Keiko Dyson Reviewed and Electronically Signed By: Keiko Dyson Signed Date: 12/04/2024 09:32 ET Workstation ID: [id number] Transcribed By: Self Edit Transcribed Date: 12/04/2024 09:[address] Angio Chest wo and/or w Contrast Final Result No pulmonary arterial emboli. No acute findings in the chest. -------- FINAL REPORT -------- Dictated By: LICO CALDWELL Dictated Date: 12/01/2024 11:53 ET Assigned Physician: LICO CALDWELL Reviewed and Electronically Signed By: LICO CALDWELL Signed Date: 12/01/2024 11:56 ET Workstation ID: [id number] Transcribed By: Self Edit Transcribed Date: 12/01/2024 [...] Rasheed Age: 64 y.o. Sex: female COVID-19 [facility] Physical Therapy Treatment Ambulation: Walking Assistance: Close supervision Device: No device Distance Ambulated (ft): 40 PLOF: Level of [place]: Independent with mobility and functional transfers Lives [...] 2019. 2. Lungs grossly clear. Telerad AKBAR ([id number]) -------- FINAL REPORT -------- Dictated By: Keiko Dyson Dictated Date: 12/04/2024 09:28 ET Assigned Physician: Keiko Dyson Reviewed and Electronically Signed By: Keiko Dyson Signed Date: 12/04/2024 09:32 ET Workstation ID: [id number] Transcribed By: Self Edit Transcribed Date: 12/04/2024 09:[address] Angio Chest wo and/or w Contrast Final Result No pulmonary arterial emboli. No acute findings in the chest. -------- FINAL REPORT -------- Dictated By: LICO CALDWELL Dictated Date: 12/01/2024 11:53 ET Assigned Physician: LICO CALDWELL Reviewed and Electronically Signed By: LICO CALDWELL Signed Date: 12/01/2024 11:56 ET Workstation ID: [id number] Transcribed By: Self Edit Transcribed Date: 12/01/2024 [...] Xarelto Emergency contact is the patient's spouse, oRbert, . Total time spent performing chart review, [...] diarrhea Has lower extremity swelling, followed by [facility] outpatient. Started on diuretics maybe3 weeks [...] 2019. 2. Lungs grossly clear. Telerad PA ([id number]) -------- FINAL REPORT -------- Dictated By: Keiko Dyson Dictated Date: 12/04/2024 09:28 ET Assigned Physician: Keiko Dyson Reviewed and Electronically Signed By: Keiko Dyson Signed Date: 12/04/2024 09:32 ET Workstation ID: [id number] Transcribed By: Self Edit Transcribed Date: 12/04/2024 09:[address] Angio Chest wo and/or w Contrast Final Result No pulmonary arterial emboli. No acute findings in the chest. -------- FINAL REPORT -------- Dictated By: LICO CALDWELL Dictated Date: 12/01/2024 11:53 ET Assigned Physician: LICO CALDWELL Reviewed and Electronically Signed By: LICO CALDWELL Signed Date: 12/01/2024 11:56 ET Workstation ID: [id number] Transcribed By: Self Edit Transcribed Date: 12/01/2024 [...] of Steps 3 Prior Function Level of [place] Independent with mobility and functional transfers Ambulation [...] with decreased activity tolerance and hr ranging [id number] with limited ambulation while on 2.5lpm 02. [...] Discharge Needs Discipline following for SNF placement [employer] Informed Choice Informed Choice Given? Yes ELDON: 12/04-12/05 Plan: home self care Barriers: 2L covid + Therapy Eval: na Referral status: na patient and family decline services Auth status: na Last BM: 12/03 Pharmacy: [facility] HCP: Yes Support Persons and Availability: Significant Other PCP: Amita Ruiz MD * AKBAR Mcclain - 12/03/2024 11:39 AM EST Yaquelin Rasheed 12[birth year] 64 y.o. [phone] Neftaly Gabriel MD SUBJECTIVE : Improving shortness [...] dictate portions of this document. Errors in food and drug inspector may be present. Please call / cortext [...] EST Yaquelin Rasheed 12[birth year] 64 y.o. [phone] Neftaly Gabriel MD SUBJECTIVE : Reported dry [...] dictate portions of this document. Errors in food and drug inspector may be present. Please call / cortext [...] Procedure Abnormality Status --------- ------ CBC auto differential[[id number]] Please view results for these tests on [...] PHYSICAL Please contact author [AKBAR Mcclellan] via [facility]. Patient: Yaquelin Rasheed Admission Date/Time: 12/01/2024 9:30 [...] Patient be transferred to the care of [facility] staff for further management of their acute [...] Signed Date: 12/01/2024 11:56 ET Workstation ID: [id number] Transcribed By: Self Edit Transcribed Date: 12/01/2024 [...] onward) Start Ordered 12/01/24 1514 Adult diet [facility]; General, Cardiac; Regular; Sodium 2 gm Restriction Diet effective now Question Answer Comment Location [facility] Diet Type (req) General Diet Type [...] from the original note were not included. [facility] Cardiology- Cardiology Consultation Note PATIENT NAME: Yaquelin Rasheed ([id number]) DATE OF CONSULT: December 06, 2024 REFERRING PROVIDER: Dr. Gabriel PRIMARY EARTH MOVING MACHINE OPERATOR: Andrea Galarza [facility] ASSESSMENT & PLAN Principal Problem: COVID-19 Active Problems: Acute hypoxemic respiratory failure due to COVID-19 (CMS/HCC) History of atrial fibrillation which is paroxysmal and controlled with metoprolol and amiodarone. Anticoagulated on Xarelto. Present since 2020 Hypertension Obesity [facility] REC[facility]: Add Cardizem CD 120 mg. Patient will follow-up with her primary chicken stuffer. I have already notified him I would [...] as though she has iron deficiency. BNP [id number]. High-sensitivity troponin 7. Creatinine has risen to [...] has a past medical history of A-fib ([facility]/HCC), Cancer (CMS/HCC), Gout, Reflux esophagitis, Sleep apnea, [...] 2.5 mg, 2.5 mg, oral, Daily, AKBAR Mclcellan, 2.5 mg at 12/06/24921 ??? levothyroxine (SYNTHROID, [...] 142 Q-T Interval 390 QTc 505 R Kenner 79 T Kenner 33 ECG Interpretation Atrial fibrillation with rapid ventricular response Right bundle branch block Abnormal ECG When compared with ECG of 01-DEC-2024 09:55, No significant change was found Confirmed by LFORENTIN VANEGAS ([id number]) on 12/04/2024 4:35:43 PM *Note: [...] the record. Also texted with her primary chicken stuffer [facility] [address] [place] [address], [address] [place] [address] documented in this encounter Plan of Treatment Upcoming Encounters Date Type Department Care Team (Late st Contact Info) Description 01/04/2025 9:00 AM EST Appointment [facility] Radiation Oncology [address] [place] [phone] 01/05/2025 9:00 AM EST Appointment [facility] Radiation Oncology [address] [place] [phone] 01/05/2025 9:10 AM EST Appointment [facility] Radiation Oncology [address] [place] [phone] Radha Bourgeois MD [address] [place] [phone] 01/08/2025 9:00 AM EST Appointment [facility] Radiation Oncology [address] [place] [phone] 01/09/2025 9:00 AM EST Appointment [facility] Radiation Oncology [address] [place] [phone] 01/10/2025 9:00 AM EST Appointment [facility] Radiation Oncology [address] [place] [phone] 01/11/2025 9:00 AM EST Appointment [facility] Radiation Oncology [address] [place] [phone] 01/12/2025 9:00 AM EST Appointment [facility] Radiation Oncology [address] [place] [phone] 01/12/2025 9:10 AM EST Appointment [facility] Radiation Oncology [address] [place] [phone] Radha Bourgeois MD [address] [place] [phone] 01/15/2025 9:00 AM EST Appointment [facility] Radiation Oncology [address] [place] [phone] 01/16/2025 9:00 AM EST Appointment [facility] Radiation Oncology [address] [phone] 01/16/2025 9:10 AM EST Appointment [facility] Radiation Oncology [address] [place] [phone] Radha Bourgeois MD [address] [place] [address] documented as of this encounter Procedures Procedure [...] Results * Folate (12/07/2024 6:02 AM EST) [facility] Folate 13.9 2.8 - 17.0 ng/ml LAB CHEMISTRY METHOD 12/07/2024 9:35 AM EST [facility] Blood Venous blood specimen / Unknown Venipuncture / Unknown 12/07/2024 6:02 AM EST 12/07/2024 6:49 AM EST Nuria Marie MD LAB BLOOD ORDERABLE S Performing Organization Address [facility]/ZIP Co de Phone Number [facility] [address] [place] [address], * Vitamin B12 (12/07/2024 6:02 AM EST) [facility] Vitamin B-12 698 250 - 900 pcg/mL LAB CHEMISTRY METHOD 12/07/2024 9:59 AM [facility] Blood Venous blood specimen / Unknown Venipuncture / Unknown 12/07/2024 6:02 AM EST 12/07/2024 6:49 AM EST Nuria Marie MD LAB BLOOD ORDERABLE S Performing Organization Address [facility]/ZIP Co de Phone Number [facility] [address] [place] [address], [place] [phone] * (ABNORMAL) CBC auto differential (12/07/2024 6:02 AM EST) [facility] WBC 15.5(H) 4.8 - 10.8 K/mcL LAB HEMETOLOGY METHOD 12/07/2024 7:21 AM [facility] RBC 3.30(L) 3.80 - 4.80 M/mcL LAB HEMETOLOGY METHOD 12/07/2024 7:21 AM [facility] Hemoglobin 9.3(L) 11.5 - 16.0 g/dL LAB HEMETOLOGY METHOD 12/07/2024 7:21 AM [facility] Hematocrit 32.0(L) 35.0 - 47.0 % LAB HEMETOLOGY METHOD 12/07/2024 7:21 AM [facility] MCV 97.6 79.0 - 98.0 FL LAB HEMETOLOGY METHOD 12/07/2024 7:21 AM [facility] MCH 28.4 27.0 - 32.0 pcg LAB HEMETOLOGY METHOD 12/07/2024 7:21 AM [facility] MCHC 29.1(L) 32.0 - 37.0 g/dL LAB HEMETOLOGY METHOD 12/07/2024 7:21 AM [facility] RDW 18.9(H) 11.0 - 15.0 % LAB HEMETOLOGY METHOD 12/07/2024 7:21 AM [facility] Platelets 390 130 - 400 K/mcL LAB HEMETOLOGY METHOD 12/07/2024 7:21 AM [facility] MPV 10.0 7.0 - 11.0 FL LAB HEMETOLOGY METHOD 12/07/2024 7:21 AM [facility] NRBC 0.5 <1.0 % LAB HEMETOLOGY METHOD 12/07/2024 7:21 AM [facility] NRBC Absolute 0.07 <0.10 K/mcL LAB HEMETOLOGY METHOD 12/07/2024 7:21 AM [facility] Neutrophils Relative 74.5 % LAB HEMETOLOGY METHOD 12/07/2024 7:21 AM [facility] Lymphocytes Relative 13.6 % LAB HEMETOLOGY METHOD 12/07/2024 7:21 AM [facility] Monocytes Relative 7.6 % LAB HEMETOLOGY METHOD 12/07/2024 7:21 AM [facility] Eosinophils Relative 0.0 % LAB HEMETOLOGY METHOD 12/07/2024 7:21 AM [facility] Basophils Relative 0.4 % LAB HEMETOLOGY METHOD 12/07/2024 7:21 AM [facility] Immature Granulocytes Relative 3.9 % LAB HEMETOLOGY METHOD 12/07/2024 7:21 AM [facility] Neutrophils Absolute 11.53(H) 1.50 - 7.00 K/mcL LAB HEMETOLOGY METHOD 12/07/2024 7:21 AM [facility] Lymphocytes Absolute 2.10 1.00 - 5.00 K/mcL LAB HEMETOLOGY METHOD 12/07/2024 7:21 AM [facility] Monocytes Absolute 1.18(H) 0.20 - 1.00 K/mcL LAB HEMETOLOGY METHOD 12/07/2024 7:21 AM [facility] Eosinophils Absolute 0.00 0.00 - 0.50 K/mcL LAB HEMETOLOGY METHOD 12/07/2024 7:21 AM [facility] Basophils Absolute 0.06 0.00 - 0.20 K/mcL LAB HEMETOLOGY METHOD 12/07/2024 7:21 AM [facility] Immature Granulocytes Absolute 0.60(H) 0.00 - 0.03 K/mcL LAB HEMETOLOGY METHOD 12/07/2024 7:21 AM [facility] Blood Venous blood specimen / Unknown Venipuncture / Unknown 12/07/2024 6:02 AM EST 12/07/2024 6:51 AM EST Milagro WEBBER LAB BLOOD ORDERABLE S [facility] [address] [place] [address], * (ABNORMAL) Basic metabolic panel (12/07/2024 6:02 AM EST) Sodium 139 133 - 145 mmol/L LAB CHEMISTRY METHOD 12/07/2024 7:57 AM [facility] Potassium 4.5 3.5 - 5.5 mmol/L LAB CHEMISTRY METHOD 12/07/2024 7:57 AM [facility] Chloride 96 96 - 110 mmol/L LAB CHEMISTRY METHOD 12/07/2024 7:57 AM [facility] CO2 38(H) 21 - 32 mmol/L LAB CHEMISTRY METHOD 12/07/2024 7:57 AM [facility] Anion Gap 5 3 - 11 LAB CHEMISTRY METHOD 12/07/2024 7:57 AM [facility] Glucose 153(H) 70 - 100 mg/dL LAB CHEMISTRY METHOD 12/07/2024 7:57 AM [facility] BUN 31(H) 5 - 25 mg/dL LAB CHEMISTRY METHOD 12/07/2024 7:57 AM [facility] Creatinine 1.22(H) 0.50 - 1.10 mg/dL LAB CHEMISTRY METHOD 12/07/2024 7:57 AM [facility] eGFR 50(L) >=60 mL/min/1. 73m2 LAB CHEMISTRY METHOD 12/07/2024 7:57 AM [facility] Comment:Calculation based on the??Chronic Kidney Disease Epidemiology Collaboration (CKD-EPI) equation refit??without adjustment for race. BUN/Creatinine Ratio 25.4 LAB CHEMISTRY METHOD 12/07/2024 7:57 AM [facility] Calcium 8.7 8.5 - 10.5 mg/dL LAB CHEMISTRY METHOD 12/07/2024 7:57 AM [facility] Blood Venous blood specimen / Unknown Venipuncture / Unknown 12/07/2024 6:02 AM EST 12/07/2024 6:49 AM EST Milagro WEBBER LAB BLOOD ORDERABLE S [facility] [address] [place] [address], * (ABNORMAL) CBC auto differential (12/06/2024 6:16 AM EST) [facility] WBC 18.2(H) 4.8 - 10.8 K/mcL LAB HEMETOLOGY METHOD 12/06/2024 8:04 AM [facility] RBC 3.30(L) 3.80 - 4.80 M/mcL LAB HEMETOLOGY METHOD 12/06/2024 8:04 AM [facility] Hemoglobin 9.4(L) 11.5 - 16.0 g/dL LAB HEMETOLOGY METHOD 12/06/2024 8:04 AM [facility] Hematocrit 32.9(L) 35.0 - 47.0 % LAB HEMETOLOGY METHOD 12/06/2024 8:04 AM [facility] MCV 98.5(H) 79.0 - 98.0 FL LAB HEMETOLOGY METHOD 12/06/2024 8:04 AM [facility] MCH 28.1 27.0 - 32.0 pcg LAB HEMETOLOGY METHOD 12/06/2024 8:04 AM [facility] MCHC 28.6(L) 32.0 - 37.0 g/dL LAB HEMETOLOGY METHOD 12/06/2024 8:04 AM [facility] RDW 19.1(H) 11.0 - 15.0 % LAB HEMETOLOGY METHOD 12/06/2024 8:04 AM [facility] Platelets 442(H) 130 - 400 K/mcL LAB HEMETOLOGY METHOD 12/06/2024 8:04 AM [facility] MPV 10.1 7.0 - 11.0 FL LAB HEMETOLOGY METHOD 12/06/2024 8:04 AM [facility] NRBC 0.2 <1.0 % LAB HEMETOLOGY METHOD 12/06/2024 8:04 AM [facility] NRBC Absolute 0.04 <0.10 K/mcL LAB HEMETOLOGY METHOD 12/06/2024 8:04 AM [facility] Neutrophils Relative 79.2 % LAB HEMETOLOGY METHOD 12/06/2024 8:04 AM [facility] Lymphocytes Relative 11.2 % LAB HEMETOLOGY METHOD 12/06/2024 8:04 AM [facility] Monocytes Relative 8.1 % LAB HEMETOLOGY METHOD 12/06/2024 8:04 AM [facility] Eosinophils Relative 0.0 % LAB HEMETOLOGY METHOD 12/06/2024 8:04 AM [facility] Basophils Relative 0.3 % LAB HEMETOLOGY METHOD 12/06/2024 8:04 AM [facility] Immature Granulocytes Relative 1.2 % LAB HEMETOLOGY METHOD 12/06/2024 8:04 AM [facility] Neutrophils Absolute 14.45(H) 1.50 - 7.00 K/mcL LAB HEMETOLOGY METHOD 12/06/2024 8:04 AM [facility] Lymphocytes Absolute 2.05 1.00 - 5.00 K/mcL LAB HEMETOLOGY METHOD 12/06/2024 8:04 AM [facility] Monocytes Absolute 1.48(H) 0.20 - 1.00 K/mcL LAB HEMETOLOGY METHOD 12/06/2024 8:04 AM [facility] Eosinophils Absolute 0.00 0.00 - 0.50 K/mcL LAB HEMETOLOGY METHOD 12/06/2024 8:04 AM [facility] Basophils Absolute 0.05 0.00 - 0.20 K/mcL LAB HEMETOLOGY METHOD 12/06/2024 8:04 AM [facility] Immature Granulocytes Absolute 0.21(H) 0.00 - 0.03 K/mcL LAB HEMETOLOGY METHOD 12/06/2024 8:04 AM [facility] Blood Venous blood specimen / Unknown Venipuncture / Unknown 12/06/2024 6:16 AM EST 12/06/2024 7:16 AM EST Milagro WEBBER LAB BLOOD ORDERABLE S [facility] [address] [place] [address], * (ABNORMAL) Basic metabolic panel (12/06/2024 6:16 AM EST) Pathologist [facility] Sodium 139 133 - 145 mmol/L LAB CHEMISTRY METHOD 12/06/2024 8:32 AM [facility] Potassium 4.4 3.5 - 5.5 mmol/L LAB CHEMISTRY METHOD 12/06/2024 8:32 AM [facility] Chloride 97 96 - 110 mmol/L LAB CHEMISTRY METHOD 12/06/2024 8:32 AM [facility] CO2 39(H) 21 - 32 mmol/L LAB CHEMISTRY METHOD 12/06/2024 8:32 AM [facility] Anion Gap 3 3 - 11 LAB CHEMISTRY METHOD 12/06/2024 8:32 AM [facility] Glucose 125(H) 70 - 100 mg/dL LAB CHEMISTRY METHOD 12/06/2024 8:32 AM [facility] BUN 34(H) 5 - 25 mg/dL LAB CHEMISTRY METHOD 12/06/2024 8:32 AM [facility] Creatinine 1.40(H) 0.50 - 1.10 mg/dL LAB CHEMISTRY METHOD 12/06/2024 8:32 AM [facility] eGFR 42(L) >=60 mL/min/1. 73m2 LAB CHEMISTRY METHOD 12/06/2024 8:32 AM [facility] Comment:Calculation based on the??Chronic Kidney Disease Epidemiology Collaboration (CKD-EPI) equation refit??without adjustment for race. BUN/Creatinine Ratio 24.3 LAB CHEMISTRY METHOD 12/06/2024 8:32 AM EST [facility] Calcium 8.4(L) 8.5 - 10.5 mg/dL LAB CHEMISTRY METHOD 12/06/2024 8:32 AM EST [facility] Blood Venous blood specimen / Unknown Venipuncture / Unknown 12/06/2024 6:16 AM EST 12/06/2024 7:16 AM EST Milagro WEBBER LAB BLOOD ORDERABLE S [facility]) [facility] [address] [place] [address], * TRANSTHORACIC ECHOCARDIOGRAM (TTE) COMPLETE W/ CONTRAST (12/05/2024 11:01 AM EST) Left Atrium Minor Kenner 5.6 cm CV PACS Left Atrium Major Kenner 5.5 cm CV PACS LA Area Sys [...] LAB CHEMISTRY METHOD 12/05/2024 7:40 AM EST [facility] Blood Venous blood specimen / Unknown Venipuncture / Unknown 12/05/2024 6:19 AM EST 12/05/2024 6:59 AM EST Milagro WEBBER LAB BLOOD ORDERABLE S [facility] [address] [place] [address], * (ABNORMAL) Basic metabolic panel (12/05/2024 6:19 AM EST) Sodium 139 133 - 145 mmol/L LAB CHEMISTRY METHOD 12/05/2024 8:10 AM [facility] Potassium 4.8 3.5 - 5.5 mmol/L LAB CHEMISTRY METHOD 12/05/2024 8:10 AM [facility] Chloride 96 96 - 110 mmol/L LAB CHEMISTRY METHOD 12/05/2024 8:10 AM [facility] CO2 41(HH) 21 - 32 mmol/L LAB CHEMISTRY METHOD 12/05/2024 8:10 AM [facility] Anion Gap 2(L) 3 - 11 LAB CHEMISTRY METHOD 12/05/2024 8:10 AM [facility] Glucose 139(H) 70 - 100 mg/dL LAB CHEMISTRY METHOD 12/05/2024 8:10 AM [facility] BUN 32(H) 5 - 25 mg/dL LAB CHEMISTRY METHOD 12/05/2024 8:10 AM [facility] Creatinine 1.35(H) 0.50 - 1.10 mg/dL LAB CHEMISTRY METHOD 12/05/2024 8:10 AM [facility] eGFR 44(L) >=60 mL/min/1. 73m2 LAB CHEMISTRY METHOD 12/05/2024 8:10 AM [facility] Comment:Calculation based on the??Chronic Kidney Disease Epidemiology Collaboration (CKD-EPI) equation refit??without adjustment for race. BUN/Creatinine Ratio 23.7 LAB CHEMISTRY METHOD 12/05/2024 8:10 AM [facility] Calcium 7.9(L) 8.5 - 10.5 mg/dL LAB CHEMISTRY METHOD 12/05/2024 8:10 AM [facility] Blood Venous blood specimen / Unknown Venipuncture / Unknown 12/05/2024 6:19 AM EST 12/05/2024 6:59 AM EST Milagro WEBBER LAB BLOOD ORDERABLE S [facility] [facility] [address] [place] [address], * (ABNORMAL) CBC auto differential (12/05/2024 6:18 AM EST) WBC 16.7(H) 4.8 - 10.8 K/mcL LAB HEMETOLOGY METHOD 12/05/2024 7:23 AM [facility] RBC 3.30(L) 3.80 - 4.80 M/mcL LAB HEMETOLOGY METHOD 12/05/2024 7:23 AM [facility] Hemoglobin 9.2(L) 11.5 - 16.0 g/dL LAB HEMETOLOGY METHOD 12/05/2024 7:23 AM [facility] Hematocrit 31.7(L) 35.0 - 47.0 % LAB HEMETOLOGY METHOD 12/05/2024 7:23 AM [facility] MCV 97.5 79.0 - 98.0 FL LAB HEMETOLOGY METHOD 12/05/2024 7:23 AM [facility] MCH 28.3 27.0 - 32.0 pcg LAB HEMETOLOGY METHOD 12/05/2024 7:23 AM [facility] MCHC 29.0(L) 32.0 - 37.0 g/dL LAB HEMETOLOGY METHOD 12/05/2024 7:23 AM [facility] RDW 19.3(H) 11.0 - 15.0 % LAB HEMETOLOGY METHOD 12/05/2024 7:23 AM [facility] Platelets 340 130 - 400 K/mcL LAB HEMETOLOGY METHOD 12/05/2024 7:23 AM [facility] MPV 9.9 7.0 - 11.0 FL LAB HEMETOLOGY METHOD 12/05/2024 7:23 AM [facility] NRBC 0.0 <1.0 % LAB HEMETOLOGY METHOD 12/05/2024 7:23 AM [facility] NRBC Absolute 0.00 <0.10 K/mcL LAB HEMETOLOGY METHOD 12/05/2024 7:23 AM [facility] Neutrophils Relative 81.0 % LAB HEMETOLOGY METHOD 12/05/2024 7:23 AM [facility] Lymphocytes Relative 10.3 % LAB HEMETOLOGY METHOD 12/05/2024 7:23 AM [facility] Monocytes Relative 7.7 % LAB HEMETOLOGY METHOD 12/05/2024 7:23 AM [facility] Eosinophils Relative 0.0 % LAB HEMETOLOGY METHOD 12/05/2024 7:23 AM [facility] Basophils Relative 0.2 % LAB HEMETOLOGY METHOD 12/05/2024 7:23 AM [facility] Immature Granulocytes Relative 0.8 % LAB HEMETOLOGY METHOD 12/05/2024 7:23 AM [facility] Neutrophils Absolute 13.55(H) 1.50 - 7.00 K/mcL LAB HEMETOLOGY METHOD 12/05/2024 7:23 AM [facility] Lymphocytes Absolute 1.72 1.00 - 5.00 K/mcL LAB HEMETOLOGY METHOD 12/05/2024 7:23 AM [facility] Monocytes Absolute 1.29(H) 0.20 - 1.00 K/mcL LAB HEMETOLOGY METHOD 12/05/2024 7:23 AM [facility] Eosinophils Absolute 0.00 0.00 - 0.50 K/mcL LAB HEMETOLOGY METHOD 12/05/2024 7:23 AM [facility] Basophils Absolute 0.03 0.00 - 0.20 K/mcL LAB HEMETOLOGY METHOD 12/05/2024 7:23 AM [facility] Immature Granulocytes Absolute 0.13(H) 0.00 - 0.03 K/mcL LAB HEMETOLOGY METHOD 12/05/2024 7:23 AM [facility] Blood Venous blood specimen / Unknown Venipuncture / Unknown 12/05/2024 6:18 AM EST 12/05/2024 6:58 AM EST Milagro WEBBER LAB BLOOD ORDERABLE S [facility] [address] [place] [address], * (ABNORMAL) CBC auto differential (12/04/2024 6:08 AM EST) WBC 19.1(H) 4.8 - 10.8 K/[facility] HEMETOLOGY METHOD 12/04/2024 7:26 AM [facility] RBC 3.20(L) 3.80 - 4.80 M/[facility] LAB HEMETOLOGY METHOD 12/04/2024 7:26 AM [facility] Hemoglobin 9.1(L) 11.5 - 16.0 g/dL LAB HEMETOLOGY METHOD 12/04/2024 7:26 AM [facility] Hematocrit 31.6(L) 35.0 - 47.0 % LAB HEMETOLOGY METHOD 12/04/2024 7:26 AM [facility] MCV 98.4(H) 79.0 - 98.0 FL LAB HEMETOLOGY METHOD 12/04/2024 7:26 AM [facility] MCH 28.3 27.0 - 32.0 pcg LAB HEMETOLOGY METHOD 12/04/2024 7:26 AM [facility] MCHC 28.8(L) 32.0 - 37.0 g/dL LAB HEMETOLOGY METHOD 12/04/2024 7:26 AM [facility] RDW 19.9(H) 11.0 - 15.0 % LAB HEMETOLOGY METHOD 12/04/2024 7:26 AM [facility] Platelets 340 130 - 400 K/mcL LAB HEMETOLOGY METHOD 12/04/2024 7:26 AM [facility] MPV 10.1 7.0 - 11.0 FL LAB HEMETOLOGY METHOD 12/04/2024 7:26 AM [facility] NRBC 0.1 <1.0 % LAB HEMETOLOGY METHOD 12/04/2024 7:26 AM [facility] NRBC Absolute 0.02 <0.10 K/mcL LAB HEMETOLOGY METHOD 12/04/2024 7:26 AM [facility] Neutrophils Relative 80.7 % LAB HEMETOLOGY METHOD 12/04/2024 7:26 AM [facility] Lymphocytes Relative 9.8 % LAB HEMETOLOGY METHOD 12/04/2024 7:26 AM [facility] Monocytes Relative 8.1 % LAB HEMETOLOGY METHOD 12/04/2024 7:26 AM [facility] Eosinophils Relative 0.3 % LAB HEMETOLOGY METHOD 12/04/2024 7:26 AM [facility] Basophils Relative 0.2 % LAB HEMETOLOGY METHOD 12/04/2024 7:26 AM [facility] Immature Granulocytes Relative 0.9 % LAB HEMETOLOGY METHOD 12/04/2024 7:26 AM [facility] Neutrophils Absolute 15.40(H) 1.50 - 7.00 K/mcL LAB HEMETOLOGY METHOD 12/04/2024 7:26 AM [facility] Lymphocytes Absolute 1.88 1.00 - 5.00 K/mcL LAB HEMETOLOGY METHOD 12/04/2024 7:26 AM EST [facility] Monocytes Absolute 1.54(H) 0.20 - 1.00 K/[facility] HEMETOLOGY METHOD 12/04/2024 7:26 AM EST [facility] Eosinophils Absolute 0.06 0.00 - 0.50 K/[facility] HEMETOLOGY METHOD 12/04/2024 7:26 AM EST [facility] Basophils Absolute 0.03 0.00 - 0.20 K/[facility] HEMETOLOGY METHOD 12/04/2024 7:26 AM [facility] Immature Granulocytes Absolute 0.18(H) 0.00 - 0.03 K/[facility] HEMETOLOGY METHOD 12/04/2024 7:26 AM [facility] Blood Venous blood specimen / Unknown Venipuncture / Unknown 12/04/2024 6:08 AM EST 12/04/2024 7:10 AM EST Raheel WEBBER LAB BLOOD ORDERAB LES [facility] [address] [place] [address], * (ABNORMAL) Basic metabolic panel (12/04/2024 6:08 AM EST) Sodium 140 133 - 145 mmol/L LAB CHEMISTRY METHOD 12/04/2024 8:14 AM [facility] Potassium 4.7 3.5 - 5.5 mmol/L LAB CHEMISTRY METHOD 12/04/2024 8:14 AM [facility] Chloride 100 96 - 110 mmol/L LAB CHEMISTRY METHOD 12/04/2024 8:14 AM [facility] CO2 39(H) 21 - 32 mmol/L LAB CHEMISTRY METHOD 12/04/2024 8:14 AM [facility] Anion Gap 1(L) 3 - 11 LAB CHEMISTRY METHOD 12/04/2024 8:14 AM [facility] Glucose 134(H) 70 - 100 mg/dL LAB CHEMISTRY METHOD 12/04/2024 8:14 AM [facility] BUN 30(H) 5 - 25 mg/dL LAB CHEMISTRY METHOD 12/04/2024 8:14 AM [facility] Creatinine 1.25(H) 0.50 - 1.10 mg/dL LAB CHEMISTRY METHOD 12/04/2024 8:14 AM [facility] eGFR 48(L) >=60 mL/min/1. 73m2 LAB CHEMISTRY METHOD 12/04/2024 8:14 AM [facility] Comment:Calculation based on the??Chronic Kidney Disease Epidemiology Collaboration (CKD-EPI) equation refit??without adjustment for race. BUN/Creatinine Ratio 24.0 LAB CHEMISTRY METHOD 12/04/2024 8:14 AM [facility] Calcium 8.8 8.5 - 10.5 mg/dL LAB CHEMISTRY METHOD 12/04/2024 8:14 AM [facility] Blood Venous blood specimen / Unknown Venipuncture / Unknown 12/04/2024 6:08 AM EST 12/04/2024 7:07 AM EST Raheel WEBBER LAB BLOOD ORDERAB LES [facility] [address] [place] [address], * XR Chest 1 View (12/03/2024 7:33 [...] Signed Date: 12/04/2024 09:32 ET Workstation ID: [id number] Transcribed By: Self Edit Transcribed Date: 12/04/2024 [...] 2019. 2. Lungs grossly clear. Cal WEBBER ([id number]) -------- FINAL REPORT -------- Dictated By: Keiok Dyson Dictated Date: 12/04/2024 09:28 ET Assigned Physician: Keiko Dyson Reviewed and Electronically Signed By: Keiko Dyson Signed Date: 12/04/2024 09:32 ET Workstation ID: [id number] Transcribed By: Self Edit Transcribed Date: 12/04/2024 09:28 ET Angelic WEBBER IMG XR PROCEDURES * ECG 12 lead (12/03/2024 7:00 PM EST) Ventricular Rate ECG 101 BPM GEMUSE Atrial Rate 125 BPM GEMUSE QRS Duration 142 ms GEMUSE Q-T Interval 390 ms GEMUSE QTc 505 ms GEMUSE R Kenner 79 degrees GEMUSE T Kenner 33 degrees GEMUSE ECG Interpretation Atrial fibrillation with rapid ventricular response Right bundle branch block Abnormal ECG When compared with ECG of 01-DEC-2024 09:55, No significant change was found Confirmed by FLORENTIN VANEGAS ([id number]) on 12/04/2024 4:35:43 PM GEMUSE 12/03/2024 7:00 PM EST 12/04/2024 4:35 PM EST Raheel WEBBER ECG ORDERABLES GEMUSE * (ABNORMAL) CBC auto differential (12/03/2024 6:52 AM EST) Pathologist [facility] WBC 15.6(H) 4.8 - 10.8 K/mcL LAB HEMETOLOGY METHOD 12/03/2024 7:59 AM [facility] RBC 2.90(L) 3.80 - 4.80 M/mcL LAB HEMETOLOGY METHOD 12/03/2024 7:59 AM [facility] Hemoglobin 8.3(L) 11.5 - 16.0 g/dL LAB HEMETOLOGY METHOD 12/03/2024 7:59 AM [facility] Hematocrit 28.9(L) 35.0 - 47.0 % LAB HEMETOLOGY METHOD 12/03/2024 7:59 AM [facility] MCV 99.0(H) 79.0 - 98.0 FL LAB HEMETOLOGY METHOD 12/03/2024 7:59 AM [facility] MCH 28.4 27.0 - 32.0 pcg LAB HEMETOLOGY METHOD 12/03/2024 7:59 AM [facility] MCHC 28.7(L) 32.0 - 37.0 g/dL LAB HEMETOLOGY METHOD 12/03/2024 7:59 AM [facility] RDW 19.9(H) 11.0 - 15.0 % LAB HEMETOLOGY METHOD 12/03/2024 7:59 AM [facility] Platelets 253 130 - 400 K/mcL LAB HEMETOLOGY METHOD 12/03/2024 7:59 AM [facility] MPV 10.1 7.0 - 11.0 FL LAB HEMETOLOGY METHOD 12/03/2024 7:59 AM [facility] NRBC 0.0 <1.0 % LAB HEMETOLOGY METHOD 12/03/2024 7:59 AM [facility] NRBC Absolute 0.00 <0.10 K/mcL LAB HEMETOLOGY METHOD 12/03/2024 7:59 AM [facility] Neutrophils Relative 81.6 % LAB HEMETOLOGY METHOD 12/03/2024 7:59 AM [facility] Lymphocytes Relative 9.1 % LAB HEMETOLOGY METHOD 12/03/2024 7:59 AM [facility] Monocytes Relative 8.2 % LAB HEMETOLOGY METHOD 12/03/2024 7:59 AM [facility] Eosinophils Relative 0.0 % LAB HEMETOLOGY METHOD 12/03/2024 7:59 AM [facility] Basophils Relative 0.1 % LAB HEMETOLOGY METHOD 12/03/2024 7:59 AM [facility] Immature Granulocytes Relative 1.0 % LAB HEMETOLOGY METHOD 12/03/2024 7:59 AM [facility] Neutrophils Absolute 12.72(H) 1.50 - 7.00 K/mcL LAB HEMETOLOGY METHOD 12/03/2024 7:59 AM [facility] Lymphocytes Absolute 1.42 1.00 - 5.00 K/mcL LAB HEMETOLOGY METHOD 12/03/2024 7:59 AM EST [facility] Monocytes Absolute 1.27(H) 0.20 - 1.00 K/mcL LAB HEMETOLOGY METHOD 12/03/2024 7:59 AM EST [facility] Eosinophils Absolute 0.00 0.00 - 0.50 K/mcL LAB HEMETOLOGY METHOD 12/03/2024 7:59 AM EST [facility] Basophils Absolute 0.02 0.00 - 0.20 K/[facility] HEMETOLOGY METHOD 12/03/2024 7:59 AM [facility] Immature Granulocytes Absolute 0.15(H) 0.00 - 0.03 K/[facility] HEMETOLOGY METHOD 12/03/2024 7:59 AM [facility] Blood Venous blood specimen / Unknown Venipuncture / Unknown 12/03/2024 6:52 AM EST 12/03/2024 7:27 AM EST Raheel WEBBER LAB BLOOD ORDERAB LES [facility] [address] [place] [address], * (ABNORMAL) Basic metabolic panel (12/03/2024 6:52 AM EST) Sodium 141 133 - 145 mmol/L LAB CHEMISTRY METHOD 12/03/2024 8:12 AM [facility] Potassium 4.2 3.5 - 5.5 mmol/L LAB CHEMISTRY METHOD 12/03/2024 8:12 AM [facility] Chloride 102 96 - 110 mmol/L LAB CHEMISTRY METHOD 12/03/2024 8:12 AM [facility] CO2 37(H) 21 - 32 mmol/L LAB CHEMISTRY METHOD 12/03/2024 8:12 AM [facility] Anion Gap 2(L) 3 - 11 LAB CHEMISTRY METHOD 12/03/2024 8:12 AM [facility] Glucose 127(H) 70 - 100 mg/dL LAB CHEMISTRY METHOD 12/03/2024 8:12 AM [facility] BUN 23 5 - 25 mg/dL LAB CHEMISTRY METHOD 12/03/2024 8:12 AM [facility] Creatinine 1.15(H) 0.50 - 1.10 mg/dL LAB CHEMISTRY METHOD 12/03/2024 8:12 AM [facility] eGFR 53(L) >=60 mL/min/1. 73m2 LAB CHEMISTRY METHOD 12/03/2024 8:12 AM [facility] Comment:Calculation based on the??Chronic Kidney Disease Epidemiology Collaboration (CKD-EPI) equation refit??without adjustment for race. BUN/Creatinine Ratio 20.0 LAB CHEMISTRY METHOD 12/03/2024 8:12 AM [facility] Calcium 8.5 8.5 - 10.5 mg/dL LAB CHEMISTRY METHOD 12/03/2024 8:12 AM [facility] Blood Venous blood specimen / Unknown Venipuncture / Unknown 12/03/2024 6:52 AM EST 12/03/2024 7:27 AM EST Raheel WEBBER LAB BLOOD ORDERAB LES [facility] [address] [place] [address], * Thyroid stimulating hormone (12/02/2024 9:18 AM EST) TSH 1.95 0.40 - 4.00 mcIU/mL LAB CHEMISTRY METHOD 12/02/2024 11:45 AM [facility] Blood Venous blood specimen / Unknown Venipuncture / Unknown 12/02/2024 9:18 AM EST 12/02/2024 9:44 AM EST [facility] BLOOD ORDERAB LES Performing Organization Address City/[facility]/ZIP Co de Phone Number [facility] [address] [place] [address], * Lactate (12/02/2024 9:18 AM EST) Lactate 1.4 0.4 - 2.0 mmol/L LAB CHEMISTRY METHOD 12/02/2024 10:08 AM EST [facility] Blood Venous blood specimen / Unknown Venipuncture / Unknown 12/02/2024 9:18 AM EST 12/02/2024 9:45 AM EST [facility] LAB BLOOD ORDERAB LES Performing Organization Address [facility] Co de Phone Number [facility] [address] [place] [address], * Procalcitonin (12/02/2024 9:18 AM EST) Procalcitonin 0.08 <=0.16 ng/mL LAB CHEMISTRY METHOD 12/02/2024 10:29 AM EST [facility] Blood Venous blood specimen / Unknown Venipuncture / Unknown 12/02/2024 9:18 AM EST 12/02/2024 9:45 AM EST Narrative [facility] - 12/02/2024 10:29 AM [...] obtained. Raheel WEBBER LAB BLOOD ORDERAB LES [facility] [address] [place] [address], * (ABNORMAL) CBC auto differential (12/02/2024 6:24 AM EST) WBC 17.3(H) 4.8 - 10.8 K/mcL LAB HEMETOLOGY METHOD 12/02/2024 7:34 AM EST [facility] RBC 3.20(L) 3.80 - 4.80 M/mcL LAB HEMETOLOGY METHOD 12/02/2024 7:34 AM EST [facility] Hemoglobin 9.0(L) 11.5 - 16.0 g/dL LAB HEMETOLOGY METHOD 12/02/2024 7:34 AM [facility] Hematocrit 30.8(L) 35.0 - 47.0 % LAB HEMETOLOGY METHOD 12/02/2024 7:34 AM [facility] MCV 96.9 79.0 - 98.0 FL LAB HEMETOLOGY METHOD 12/02/2024 7:34 AM [facility] MCH 28.3 27.0 - 32.0 pcg LAB HEMETOLOGY METHOD 12/02/2024 7:34 AM [facility] MCHC 29.2(L) 32.0 - 37.0 g/dL LAB HEMETOLOGY METHOD 12/02/2024 7:34 AM [facility] RDW 20.0(H) 11.0 - 15.0 % LAB HEMETOLOGY METHOD 12/02/2024 7:34 AM [facility] Platelets 248 130 - 400 K/mcL LAB HEMETOLOGY METHOD 12/02/2024 7:34 AM [facility] MPV 10.4 7.0 - 11.0 FL LAB HEMETOLOGY METHOD 12/02/2024 7:34 AM [facility] NRBC 0.0 <1.0 % LAB HEMETOLOGY METHOD 12/02/2024 7:34 AM [facility] NRBC Absolute 0.00 <0.10 K/mcL LAB HEMETOLOGY METHOD 12/02/2024 7:34 AM [facility] Neutrophils Relative 86.9 % LAB HEMETOLOGY METHOD 12/02/2024 7:34 AM [facility] Lymphocytes Relative 6.1 % LAB HEMETOLOGY METHOD 12/02/2024 7:34 AM [facility] Monocytes Relative 5.6 % LAB HEMETOLOGY METHOD 12/02/2024 7:34 AM [facility] Eosinophils Relative 0.0 % LAB HEMETOLOGY METHOD 12/02/2024 7:34 AM [facility] Basophils Relative 0.2 % LAB HEMETOLOGY METHOD 12/02/2024 7:34 AM [facility] Immature Granulocytes Relative 1.2 % LAB HEMETOLOGY METHOD 12/02/2024 7:34 AM [facility] Neutrophils Absolute 15.03(H) 1.50 - 7.00 K/mcL LAB HEMETOLOGY METHOD 12/02/2024 7:34 AM [facility] Lymphocytes Absolute 1.05 1.00 - 5.00 K/mcL LAB HEMETOLOGY METHOD 12/02/2024 7:34 AM [facility] Monocytes Absolute 0.96 0.20 - 1.00 K/mcL LAB HEMETOLOGY METHOD 12/02/2024 7:34 AM EST [facility] Eosinophils Absolute 0.00 0.00 - 0.50 K/[facility] LAB HEMETOLOGY METHOD 12/02/2024 7:34 AM EST [facility] Basophils Absolute 0.03 0.00 - 0.20 K/[facility] LAB HEMETOLOGY METHOD 12/02/2024 7:34 AM [facility] Immature Granulocytes Absolute 0.21(H) 0.00 - 0.03 K/[facility] LAB HEMETOLOGY METHOD 12/02/2024 7:34 AM [facility] Blood Venous blood specimen / Unknown Venipuncture / Unknown 12/02/2024 6:24 AM EST 12/02/2024 7:02 AM EST Giovana WEBBER LAB BLOOD ORDERABLES Performing Organization Address City/State/[facility] Co de Phone Number [facility] [address] [place] [address], * (ABNORMAL) Basic metabolic panel (12/02/2024 6:23 AM EST) Sodium 138 133 - 145 mmol/L LAB CHEMISTRY METHOD 12/02/2024 7:41 AM [facility] Potassium 3.8 3.5 - 5.5 mmol/L LAB CHEMISTRY METHOD 12/02/2024 7:41 AM [facility] Chloride 102 96 - 110 mmol/L LAB CHEMISTRY METHOD 12/02/2024 7:41 AM [facility] CO2 33(H) 21 - 32 mmol/L LAB CHEMISTRY METHOD 12/02/2024 7:41 AM [facility] Anion Gap 3 3 - 11 LAB CHEMISTRY METHOD 12/02/2024 7:41 AM [facility] Glucose 149(H) 70 - 100 mg/dL LAB CHEMISTRY METHOD 12/02/2024 7:41 AM [facility] BUN 17 5 - 25 mg/dL LAB CHEMISTRY METHOD 12/02/2024 7:41 AM [facility] Creatinine 1.05 0.50 - 1.10 mg/dL LAB CHEMISTRY METHOD 12/02/2024 7:41 AM [facility] eGFR 59(L) >=60 mL/min/1. 73m2 LAB CHEMISTRY METHOD 12/02/2024 7:41 AM [facility] Comment:Calculation based on the??Chronic Kidney Disease Epidemiology Collaboration (CKD-EPI) equation refit??without adjustment for race. BUN/Creatinine Ratio 16.2 LAB CHEMISTRY METHOD 12/02/2024 7:41 AM [facility] Calcium 8.4(L) 8.5 - 10.5 mg/dL LAB CHEMISTRY METHOD 12/02/2024 7:41 AM [facility] Blood Venous blood specimen / Unknown Venipuncture / Unknown 12/02/2024 6:23 AM EST 12/02/2024 7:03 AM EST Giovana WEBBER LAB BLOOD ORDERABLES Performing Organization Address City/[facility]/ZIP Co de Phone Number [facility] [address] [place] [address], [place] [phone] * (ABNORMAL) Lactate (12/01/2024 4:05 PM EST) Lactate 2.7(H) 0.4 - 2.0 mmol/L LAB CHEMISTRY METHOD 12/01/2024 4:42 PM EST [facility] Blood Venous blood specimen / Unknown Venipuncture / Unknown 12/01/2024 4:05 PM EST 12/01/2024 4:12 PM EST Giovana WEBBER LAB BLOOD ORDERABLES [facility] [address] [place] [address], [place] [phone] * Culture blood (12/01/2024 4:05 PM EST) Culture, Blood No growth at 5 days 12/06/2024 5:01 PM EST [facility] Blood Venous blood specimen / Unknown Venipuncture / Unknown 12/01/2024 4:05 PM EST 12/01/2024 4:13 PM EST Giovana WEBBER LAB MICROBIOLOGY - G ENERAL ORDERABLES [facility] [address] [place] [address], [place] [phone] * Culture blood (12/01/2024 3:47 PM EST) Culture, Blood No growth at 5 days 12/06/2024 5:01 PM EST [facility] Blood Venous blood specimen / Unknown Venipuncture / Unknown 12/01/2024 3:47 PM EST 12/01/2024 4:12 PM EST Giovana WEBBER LAB MICROBIOLOGY - G ENERAL ORDERABLES Performing Organization Address City/[facility]/ZIP Co de Phone Number [facility] [address] [place] [address], [place] [phone] * (ABNORMAL) Prothrombin time with INR (12/01/2024 2:57 PM EST) Protime 19.8(H) 10.6 - 13.9 sec LAB COAGULATION METHOD 12/01/2024 3:24 PM EST [facility] INR 1.6 LAB COAGULATION METHOD 12/01/2024 3:24 PM EST [facility] Blood Venous blood specimen / Unknown Venipuncture / Unknown 12/01/2024 2:57 PM EST 12/01/2024 3:02 PM EST Giovana WEBBER LAB BLOOD ORDERABLES Performing Organization Address [facility]/ZIP Co de Phone Number [facility] [address] [place] [address], * (ABNORMAL) B-type natriuretic peptide (12/01/2024 2:57 PM EST) BNP 542(H) <=100 pcg/mL LAB CHEMISTRY METHOD 12/01/2024 3:42 PM EST [facility] Blood Venous blood specimen / Unknown Venipuncture / Unknown 12/01/2024 2:57 PM EST 12/01/2024 3:02 PM EST Giovana Yas Downs [place] LAB BLOOD ORDERABLES Performing Organization Address [facility] Co de Phone Number [facility] [address] [place] [address], * CT Angio Chest wo and/or w [...] Signed Date: 12/01/2024 11:56 ET Workstation ID: [id number] Transcribed By: Self Edit Transcribed Date: 12/01/2024 [...] Signed Date: 12/01/2024 11:56 ET Workstation ID: [id number] Transcribed By: Self Edit Transcribed Date: 12/01/2024 11:53 ET Ailyn WEBBER IMG CT PROCEDURES * (ABNORMAL) Magnesium (12/01/2024 10:12 AM EST) [facility] Magnesium 1.8(L) 1.9 - 2.6 mg/dL LAB CHEMISTRY METHOD 12/01/2024 3:46 PM EST [facility] Blood Venous blood specimen / Unknown Venipuncture / Unknown 12/01/2024 10:12 AM EST 12/01/2024 10:30 AM EST Giovana WEBBER LAB BLOOD ORDERABLES Performing Organization Address City/[facility]/ZIP Co de Phone Number [facility] [address] [place] [address], [place] [phone] * Vitamin B12 and folate (12/01/2024 10:12 AM EST) [facility] Vitamin B-12 468 250 - 900 pcg/mL LAB CHEMISTRY METHOD 12/01/2024 4:12 PM EST [facility] Folate 10.4 2.8 - 17.0 ng/ml LAB CHEMISTRY METHOD 12/01/2024 4:12 PM EST [facility] Blood Venous blood specimen / Unknown Venipuncture / Unknown 12/01/2024 10:12 AM EST 12/01/2024 10:30 AM EST Giovana WEBBER LAB BLOOD ORDERABLES Performing Organization Address City/[facility]/ZIP Co de Phone Number [facility] [address] [place] [address], [place] [phone] * Ferritin (12/01/2024 10:12 AM EST) [facility] Ferritin 31 8 - 252 ng/mL LAB CHEMISTRY METHOD 12/01/2024 3:23 PM EST [facility] Blood Venous blood specimen / Unknown Venipuncture / Unknown 12/01/2024 10:12 AM EST 12/01/2024 10:30 AM EST Giovana WEBBER LAB BLOOD ORDERABLES [facility] [address] [place] [address], [place] [phone] * (ABNORMAL) Iron and TIBC (12/01/2024 10:12 AM EST) [facility] Iron 19(L) 40 - 150 mcg/dL LAB CHEMISTRY METHOD 12/01/2024 2:49 PM EST [facility] TIBC 428 250 - 450 mcg/dL LAB CHEMISTRY METHOD 12/01/2024 2:49 PM EST [facility] Iron Saturation 4(L) 15 - 50 % LAB CHEMISTRY METHOD 12/01/2024 2:49 PM EST [facility] Blood Venous blood specimen / Unknown Venipuncture / Unknown 12/01/2024 10:12 AM EST 12/01/2024 10:30 AM EST Giovana WEBBER LAB BLOOD ORDERABLES [facility] [address] [place] [address], [place] [phone] * Hepatic function panel (12/01/2024 10:12 AM EST) Pathologist [facility] Total Protein 6.5 6.0 - 8.0 g/dL LAB CHEMISTRY METHOD 12/01/2024 2:37 PM EST [facility] Albumin 3.3 3.2 - 5.0 g/dL LAB CHEMISTRY METHOD 12/01/2024 2:37 PM EST [facility] Total Bilirubin 0.5 0.0 - 1.4 mg/dL LAB CHEMISTRY METHOD 12/01/2024 2:37 PM EST [facility] Bilirubin, Direct 0.1 0.0 - 0.3 mg/dL LAB CHEMISTRY METHOD 12/01/2024 2:37 PM [facility] Bilirubin, Indirect 0.4 0.0 - 1.1 mg/dL LAB CHEMISTRY METHOD 12/01/2024 2:37 PM [facility] ALT (SGPT) 21 10 - 60 unit/L LAB CHEMISTRY METHOD 12/01/2024 2:37 PM [facility] AST (SGOT) 12 10 - 42 unit/L LAB CHEMISTRY METHOD 12/01/2024 2:37 PM [facility] Alkaline Phosphatase 68 42 - 121 unit/L LAB CHEMISTRY METHOD 12/01/2024 2:37 PM [facility] Blood Venous blood specimen / Unknown Venipuncture / Unknown 12/01/2024 10:12 AM EST 12/01/2024 10:30 AM EST Giovana WEBBER LAB BLOOD ORDERABLES [facility] [address] [place] [address], * (ABNORMAL) Manual differential (12/01/2024 10:12 AM EST) Neutrophils % 90.0 % LAB HEMETOLOGY METHOD 12/01/2024 11:16 AM [facility] Lymphocytes % 6.0 % LAB HEMETOLOGY METHOD 12/01/2024 11:16 AM [facility] Monocytes % 4.0 % LAB HEMETOLOGY METHOD 12/01/2024 11:16 AM [facility] Eosinophils % 0.0 % LAB HEMETOLOGY METHOD 12/01/2024 11:16 AM [facility] Basophils % 0.0 % LAB HEMETOLOGY METHOD 12/01/2024 11:16 AM [facility] Neutrophils Absolute Manual 20.70(H) 1.50 - 7.00 K/mcL LAB HEMETOLOGY METHOD 12/01/2024 11:16 AM [facility] Lymphocytes Absolute 1.38 1.00 - 5.00 K/mcL LAB HEMETOLOGY METHOD 12/01/2024 11:16 AM [facility] Monocytes Absolute Manual 0.92 0.20 - 1.00 K/mcL LAB HEMETOLOGY METHOD 12/01/2024 11:16 AM [facility] Eosinophils Absolute Manual 0.00 0.00 - 0.50 K/mcL LAB HEMETOLOGY METHOD 12/01/2024 11:16 AM [facility] Basophils Absolute Manual 0.00 0.00 - 0.20 K/mcL LAB HEMETOLOGY METHOD 12/01/2024 11:16 AM [facility] Rbc Morphology Present( A) Consistent with indices, Normal for [place] LAB HEMETOLOGY METHOD 12/01/2024 11:16 AM [facility] Comment:RBC: Morphology agre es with CBC Platelet Morphology - WAM See Note(A) Normal LAB HEMETOLOGY METHOD 12/01/2024 11:16 AM [facility] Comment:PLT: Normal Polychromasia Present Present( A) (none) LAB HEMETOLOGY METHOD 12/01/2024 11:16 AM [facility] Blood Venous blood specimen / Unknown Venipuncture / Unknown 12/01/2024 10:12 AM EST 12/01/2024 10:30 AM EST Ailyn WEBBER LAB BLOOD ORDERABLES [facility] [address] [place] [address], * Troponin I high sensitivity (12/01/2024 10:12 AM EST) [facility] High Sensitivity Troponin I 7 <=54 ng/L LAB CHEMISTRY METHOD 12/01/2024 11:03 AM [facility] Blood Venous blood specimen / Unknown Venipuncture / Unknown 12/01/2024 10:12 AM EST 12/01/2024 10:30 AM EST [facility] - 12/01/2024 11:03 AM EST High levels of biotin in samples may falsely decrease hsTroponin values. ??Use caution when interpreting hsTroponin results in patients taking biotin who exhibit renal impairment (eGFR <60) or in patients taking more than 20 mg/day of biotin. Josh Carranza MD LAB BLOOD ORDERABLE S [facility] [address] [place] [address], * (ABNORMAL) CBC auto differential (12/01/2024 10:12 AM EST) [facility] WBC 23.0(H) 4.8 - 10.8 K/mcL LAB HEMETOLOGY METHOD 12/01/2024 11:16 AM [facility] RBC 3.50(L) 3.80 - 4.80 M/mcL LAB HEMETOLOGY METHOD 12/01/2024 11:16 AM [facility] Hemoglobin 10.0(L) 11.5 - 16.0 g/dL LAB HEMETOLOGY METHOD 12/01/2024 11:16 AM [facility] Hematocrit 33.3(L) 35.0 - 47.0 % LAB HEMETOLOGY METHOD 12/01/2024 11:16 AM [facility] MCV 94.3 79.0 - 98.0 FL LAB HEMETOLOGY METHOD 12/01/2024 11:16 AM EST [facility] MCH 28.3 27.0 - 32.0 pcg LAB HEMETOLOGY METHOD 12/01/2024 11:16 AM EST [facility] MCHC 30.0(L) 32.0 - 37.0 g/dL LAB HEMETOLOGY METHOD 12/01/2024 11:16 AM EST [facility] RDW 20.1(H) 11.0 - 15.0 % LAB HEMETOLOGY METHOD 12/01/2024 11:16 AM EST [facility] Platelets 274 130 - 400 K/mcL LAB HEMETOLOGY METHOD 12/01/2024 11:16 AM [facility] MPV 10.2 7.0 - 11.0 FL LAB HEMETOLOGY METHOD 12/01/2024 11:16 AM EST [facility] NRBC 0.0 <1.0 % LAB HEMETOLOGY METHOD 12/01/2024 11:16 AM [facility] NRBC Absolute 0.00 <0.10 K/mcL LAB HEMETOLOGY METHOD 12/01/2024 11:16 AM [facility] Blood Venous blood specimen / Unknown Venipuncture / Unknown 12/01/2024 10:12 AM EST 12/01/2024 10:30 AM EST Ailyn WEBBER LAB BLOOD ORDERABLES [facility] [address] [place] [address], * (ABNORMAL) Basic metabolic panel (12/01/2024 10:12 AM EST) Sodium 136 133 - 145 mmol/L LAB CHEMISTRY METHOD 12/01/2024 11:00 AM EST [facility] Potassium 3.7 3.5 - 5.5 mmol/L LAB CHEMISTRY METHOD 12/01/2024 11:00 AM [facility] Chloride 99 96 - 110 mmol/L LAB CHEMISTRY METHOD 12/01/2024 11:00 AM [facility] CO2 33(H) 21 - 32 mmol/L LAB CHEMISTRY METHOD 12/01/2024 11:00 AM [facility] Anion Gap 4 3 - 11 LAB CHEMISTRY METHOD 12/01/2024 11:00 AM [facility] Glucose 139(H) 70 - 100 mg/dL LAB CHEMISTRY METHOD 12/01/2024 11:00 AM [facility] BUN 17 5 - 25 mg/dL LAB CHEMISTRY METHOD 12/01/2024 11:00 AM [facility] Creatinine 1.25(H) 0.50 - 1.10 mg/dL LAB CHEMISTRY METHOD 12/01/2024 11:00 AM [facility] eGFR 48(L) >=60 mL/min/1. 73m2 LAB CHEMISTRY METHOD 12/01/2024 11:00 AM [facility] Comment:Calculation based on the??Chronic Kidney Disease Epidemiology Collaboration (CKD-EPI) equation refit??without adjustment for race. BUN/Creatinine Ratio 13.6 LAB CHEMISTRY METHOD 12/01/2024 11:00 AM [facility] Calcium 8.8 8.5 - 10.5 mg/dL LAB CHEMISTRY METHOD 12/01/2024 11:00 AM [facility] Blood Venous blood specimen / Unknown Venipuncture / Unknown 12/01/2024 10:12 AM EST 12/01/2024 10:30 AM EST Ailyn WEBBER LAB BLOOD ORDERABLES [facility] [address] [place] [address], * (ABNORMAL) Respiratory virus panel molecular study (12/01/2024 10:06 AM EST) Adenovirus Detection by PCR Not Detected Not Detected LAB MICROBIOLOGY METHOD 12/01/2024 11:43 AM [facility] Influenza A PCR Not Detected Not Detected LAB MICROBIOLOGY METHOD 12/01/2024 11:43 AM [facility] Influenza B PCR Not Detected Not Detected LAB MICROBIOLOGY METHOD 12/01/2024 11:43 AM [facility] Coronavirus 229E Not Detected Not Detected LAB MICROBIOLOGY METHOD 12/01/2024 11:43 AM [facility] Coronavirus HKU1 Not Detected Not Detected LAB MICROBIOLOGY METHOD 12/01/2024 11:43 AM [facility] Coronavirus OC43 Not Detected Not Detected LAB MICROBIOLOGY METHOD 12/01/2024 11:43 AM [facility] Coronavirus NL63 Not Detected Not Detected LAB MICROBIOLOGY METHOD 12/01/2024 11:43 AM [facility] Parainfluenza Virus 1 Not Detected Not Detected LAB MICROBIOLOGY METHOD 12/01/2024 11:43 AM [facility] Parainfluenza Virus 2 Not Detected Not Detected LAB MICROBIOLOGY METHOD 12/01/2024 11:43 AM [facility] Parainfluenza Virus 3 Not Detected Not Detected LAB MICROBIOLOGY METHOD 12/01/2024 11:43 AM [facility] Parainfluenza Virus 4 Not Detected Not Detected LAB MICROBIOLOGY METHOD 12/01/2024 11:43 AM [facility] RSV PCR Not Detected Not Detected LAB MICROBIOLOGY METHOD 12/01/2024 11:43 AM [facility] Human Metapneumovirus A and B Not Detected Not Detected LAB MICROBIOLOGY METHOD 12/01/2024 11:43 AM [facility] Rhinovirus/Entero virus Not Detected Not Detected LAB MICROBIOLOGY METHOD 12/01/2024 11:43 AM [facility] Bordetella pertussis Not Detected Not Detected LAB MICROBIOLOGY METHOD 12/01/2024 11:43 AM EST [facility] Bordetella parapertussis Not Detected Not Detected LAB MICROBIOLOGY METHOD 12/01/2024 11:43 AM EST [facility] Mycoplasma pneumo by PCR Not Detected Not Detected LAB MICROBIOLOGY METHOD 12/01/2024 11:43 AM EST [facility] Chlamydia pneumoniae Not Detected Not Detected LAB MICROBIOLOGY METHOD 12/01/2024 11:43 AM EST [facility] SARS COV-2 Detected(A ) Not Detected LAB MICROBIOLOGY METHOD 12/01/2024 11:43 AM [facility] Swab Both anterior nares / Unknown Non-blood Collection / Unknown 12/01/2024 10:06 AM EST 12/01/2024 10:13 AM EST [facility] - 12/01/2024 11:43 AM EST Testing was performed using the [employer] Respiratory Pathogen PCR Assay. All results must [...] WEBBER LAB MICROBIOLOGY - G ENERAL ORDERABLES [facility] [address] [place] [address], * ECG 12 lead (12/01/2024 9:55 AM EST) Ventricular Rate ECG 111 BPM GEMUSE Atrial Rate 107 BPM GEMUSE QRS Duration 142 ms GEMUSE Q-T Interval 402 ms GEMUSE QTc 546 ms GEMUSE R Ken[place] 77 degrees GEMUSE T [place] 9 degrees GEMUSE ECG Interpretation Atrial fibrillation [...] Cheryle Regan RN) 0921 (Given - Provider: rKistine Simons RN) 0855 (Given - Provider: Kristine [...] or chew. 0929 (Given - Provider: Cheryle Regan, RN) metoprolol tartrate (LOPRESSOR) tablet 100 mg 100 mg, oral, 2 times daily, First dose on Wed12/05/24 at 2100 2025 (Given - Provider: Cj Morales, BAO) 0921 (Given - Provider: Kristine Simons, BAO)2056 [...] documented as of this encounter Care Teams Geospatial Analyst Relationship Specialty Start Date End Date Amita Riuz MD [address] [place] [phone] PCP - General Internal Medicine 10/13/24 documented as of this encounter
--- OUTSIDE RECORDS SUMMARY | 2025-01-03 15:32 | XMS_ITS | Encounter Summary ---
Author Organization [facility] Address [address] [place] [address] Care Team Providers Care [employer] Executive Name Role Phone Amita Ruiz MD Primary Care Provider [phone] Encounter Details Date Type Department Care Team (Late Contact Info) Description 01/01/2025 8:28 AM EST Hospital Encounter [facility] Radiation Oncology [address] [place] [phone] Social History Tobacco Use Types Packs/Day Years [...] Info) Description 01/04/2025 9:00 AM EST Appointment [facility] Radiation Oncology [address] [phone] 01/05/2025 9:00 AM EST Appointment [facility] Radiation Oncology [address] [phone] 01/05/2025 9:10 AM EST Appointment [facility] Radiation Oncology [address] [phone] Radha Bourgeois MD [address] [place] [address] 01/08/2025 9:00 AM EST Appointment [facility] Radiation Oncology [address] [place] [phone] 01/09/2025 9:00 AM EST Appointment [facility] Radiation Oncology [address] [place] [phone] 01/10/2025 9:00 AM EST Appointment [facility] Radiation Oncology [address] [place] [phone] 01/11/2025 9:00 AM EST Appointment [facility] Radiation Oncology [address] [place] [phone] 01/12/2025 9:00 AM EST Appointment [facility] Radiation Oncology [address] [place] [phone] 01/12/2025 9:10 AM EST Appointment [facility] Radiation Oncology [address] [place] [phone] Radha Bourgeois MD [address] [place] [phone] 01/15/2025 9:00 AM EST Appointment [facility] Radiation Oncology [address] [place] [phone] 01/16/2025 9:00 AM EST Appointment [facility] Radiation Oncology [address] [place] [phone] 01/16/2025 9:10 AM EST Appointment [facility] Radiation Oncology [address] [place] [phone] Radha Bourgeois MD [address] [place] [phone] documented as of this encounter Procedures Procedure [...] on filedocumented in this encounter Care Teams [employer] Executive Relationship Specialty Start Date End Date Amita Ruiz MD [address] [place] [address] PCP - General Internal Medicine 10/13/24 documented as of this encounter
[2025-01-03 16:25] LABS: MANUAL DIFF FLAG NO
[2025-01-03 16:37] LABS: Basophils Absolute Auto 0.1 X10*3/uL (0.0-0.2); Basophils Percent Auto 0.6 % (0-2); Eosinophils Absolute Auto 0.3 X10*3/uL (0.0-0.4); Eosinophils Percent Auto 2.2 % (0-4); Hematocrit 36.3 % (37.0-47.0); Hemoglobin 10.9 g/dl (12.0-16.0); Imm Gran Abs Auto 0.72 X10*3/uL (0.00-0.03); Lymphocytes Absolute Auto 1.9 X10*3/uL (1.2-4.9); Lymphocytes Percent Auto 13.5 % (20-40); Mean Corpuscular Hemoglobin 28.2 pg (27.0-33.0); Monocytes Absolute Auto 1.4 X10*3/uL (0.1-1.2); Monocytes Percent Auto 9.8 % (2-11); NRBC Pct Auto 0.3 /100WBC (0.0-0.2); Neutrophils Absolute Auto 9.9 x10*3/uL (2.0-8.3); Neutrophils Percent Auto 68.9 % (45-73); Platelet Count 576 X10*3/uL (160-400); Red Blood Count 3.86 X10*6/uL (4.20-5.50); Red Cell Distribution Width 16.1 % (11.0-16.0); White Blood Count 14.3 X10*3/uL (4.8-10.8)
[2025-01-03 16:42] LABS: B Type Natriuretic Peptide 24 pg/mL (<100)
[2025-01-03 16:47] LABS: Anion Gap 14 (12-20); Blood Urea Nitrogen 17 mg/dL (9-16); Calcium 9.2 mg/dL (8.4-10.2); Carbon Dioxide 35 mmol/L (22-29); Chloride 98 mmol/L (96-108); Estimated Glomerular Filt Rate > 60; Glucose Random 152 mg/dL (60-115); Potassium 4.7 mmol/L (3.3-5.1); Sodium 142 mmol/L (135-145)
== END 2025-01-03 13:32 | disposition home or self-care (01) ==
LOC: HO.HMGCLDS 13:31
PROVIDERS: PCP Internal Medicine; Visit Provider Internal Medicine
DX: I50.31 Acute diastolic (congestive) heart failure (principal); I48.91 Unspecified atrial fibrillation; D64.9 Anemia, unspecified; E66.01 Morbid (severe) obesity due to excess calories; E66.2 Morbid (severe) obesity with alveolar hypoventilation; Z68.42 Body mass index [BMI] 45.0-49.9, adult; R73.9 Hyperglycemia, unspecified; Z79.01 Long term (current) use of anticoagulants; Z79.899 Other long term (current) drug therapy; Z99.81 Dependence on supplemental oxygen; Z99.89 Dependence on other enabling machines and devices
CPT/HCPCS: 36415; 80048; 83880; 85025; 96127

== ENCOUNTER 2025-01-03 13:31 | Outpatient (AMB) | payer OTHER, SELFPAY ==
--- NOTE | 2025-01-03 13:37 | A.OFFPC_ITS ---
Vital Signs 01/03/25 13:41 Height 5 ft 3 in Weight 257 lb BMI 45.5 BP 130/68 Blood Pressure Location Lt brachial Position Sitting Respiration 20 Pulse 81 Pulse Source Pulse Oximeter Temp 98.4 F Temp Source Oral Pulse Oximetry (%) 94 Oxygen Delivery Method Room Air Intake Visit Reasons: TCM Intake Note: Pt is here today for TCM. Allergies erythromycin base Allergy (Intermediate, Verified 01/03/25 13:43) Abdominal Pain lisinopril Allergy (Intermediate, Verified 01/03/25 13:43) Rash Medication List - Last Reconciled 01/03/25 by Amita Ruiz MD alendronate 70 mg PO SA@0900 allopurinol 200 mg (2 x 100 mg) PO DAILY amiodarone 200 mg PO DAILY diltiazem HCl 30 mg See Protocol PO BID empagliflozin (Jardiance) 10 mg PO DAILY ferrous sulfate 325 mg PO BID furosemide (Lasix) 40 mg PO BID@0900,1700 letrozole 2.5 mg PO DAILY levothyroxine 250 mcg PO LESLIE@0630 levothyroxine 125 mcg MOTUWETHFRSA metoprolol tartrate 100 mg PO BID omeprazole 20 mg PO DAILY@0630 rivaroxaban (Xarelto) 20 mg PO DAILY@1700 walker Standard wheeled walker Tobacco use date assessed: 12/19/24 Dental Screening Dental Screen Date: 12/19/24 HPI TCM HPI Details Patient presents for the hospitalization for worsening acute heart failure episode of AFib with rapid ventricular response and worsening lower extremity swelling. Patient reports increasing lower extremity swelling since discharge last week. She was discharged on 40 mg of furosemide daily. Before the admission patient was taking 80 mg furosemide but reports there was no significant improvement in her chronic lower extremity swelling. She denies palpitations shortness or breath PND orthopnea. She has been using supplemental O2 at night and trying to use a CPAP machine more often and longer up to 1 hour night. Patient complains of leg pain when trying to walk. TCM TCM Information Date of Discharge 12/28/24 Discharged From [facility] Interactive Contact Date (Reference documentation from this date) 12/29/24 [facility] Medical History Arthritis HX: breast cancer SOB (shortness of breath) On anticoagulant therapy Invasive ductal carcinoma of right breast in female A-fib Hypothyroid Osteoporosis Urethral stenosis Depression with anxiety Thyroid cancer Acid reflux Kidney stone QAMAR (obstructive sleep apnea) Hypertension Knee pain, left Surgical History History of lumpectomy of right breast (09/20/24) Hx of dilation of urethra Hx of cystoscopy H/O colonoscopy History of partial hysterectomy History of thyroidectomy Family History Mother Lung cancer Father HTN (hypertension) Melanoma Social History Household Members: Spouse Housing: House Are you a primary career services manager to a significant other at home: No Do you presently have visiting nurse or other home services: No Alcohol intake: current Alcohol intake frequency: does not drink Patient Tobacco Use Status: Never used Tobacco e-Cigarette/Vaping Use: Never Used service: No Current occupational status: unemployed Current occupation: right handed Cognitive needs: No Hearing needs: No Vision needs: Yes Female Reproductive History Menstrual Age of Menarche: 13 Questionnaire PHQ-9 Over the last 2 weeks, how often have you been bothered by any of the following problems? 1. Little interest or pleasure in doing things: nearly every day 2. Feeling down, depressed, or hopeless: nearly every day 3. Trouble falling or staying asleep, or sleeping too much: several days 4. Feeling tired or having little energy: nearly every day 5. Poor appetite or overeating: several days 6. Feeling bad about yourself - or that you are a failure or have let yourself or your family down: several days 7. Trouble concentrating on things, such as reading the newspaper or watching television: several days 8. Moving or speaking so slowly that other people could have noticed. Or the opposite - being so fidgety or restless that you have been moving around a lot more than usual: not at all 9. Thoughts that you would be better off or of hurting yourself in some way: not at all Total score: 13 Depression Screening Interpretation: Negative Depression Screening Done: Yes 71267 - PHQ-9 Billing: Yes Source: Developed by Drs. Kenney Sweeney, Juana Oliva, Jaime Jiang and colleagues, with an educational petra from [employer]. Thrive Questionnaire Date Thrive assessed: 01/03/25 I am a: Patient What is your living situation today?: I have a steady place to live THRIVE Score: 0 DARLEEN-7 AMB Questionnaire DARLEEN-7 Date DARLEEN - 7 assessed: 01/04/24 Source: Developed by Drs. Kenney Sweeney, Juana Oliva, Jaime Jiang and colleagues, with an educational petra from [employer]. Review of Systems Const All systems reviewed & are unremarkable except as noted in HPI and below ENT Reports no additional complaints Card Reports no additional complaints Resp Reports no additional complaints GI Reports no additional complaints Reports no additional complaints Physical exam (Primary Care) Vital Signs: Last Vital Signs Temp 98.4 F 01/03/25 13:41 Pulse 81 01/03/25 13:41 Resp 20 01/03/25 13:41 BP 130/68 01/03/25 13:41 Pulse Ox 94 01/03/25 13:41 Oxygen Delivery Method Room Air 01/03/25 13:41 BMI result Body Mass Index 45.5 Tobacco/Smoking Status: Tobacco use Status Tobacco use date assessed 12/19/24 01/03/25 13:38 Patient Tobacco Use Status Never used Tobacco 01/03/25 13:38 e-Cigarette/Vaping Use Never Used 01/03/25 13:38 PHQ-9: PHQ-9 Score PHQ-9: Total score 13 01/03/25 14:27 Depression Screening Interpretation: Negative Thrive Assessment: Date of Thrive Assessment Date Thrive assessed 01/03/25 01/03/25 13:38 Const General: no acute distress HENMT Throat: Yes posterior oropharynx normal Resp Effort & Inspection: normal respiratory effort Auscultation: clear to auscultation bilaterally Cardio Rhythm: regular rhythm Heart sounds: S1 normal heart sound present and S2 normal heart sound present GI Inspection: Yes normal to inspection Palpation (GI): Soft to palpation Percussion: Yes normal to percussion Auscultation: normal bowel sounds Extrem Other: 3+ pitting edema bilaterally Coding Level of Care Code Est Pt Level 5 (15710) Complex EM visit Add On G2211 Diagnoses Acute heart failure with preserved ejection fraction I50.31 Heart failure chronicity: acute Atrial fibrillation with rapid ventricular response I48.91 Anemia D64.9 Morbid obesity E66.01 Hypoventilation associated with obesity E66.2 Hyperglycemia R73.9 Additional Codes PHQ-9 - 61420 - PHQ-9 Billing: Yes ([id number]) Assessment & Plan Assessment & Plan (1) (HFpEF) heart failure with preserved ejection fraction: Comment: Rashida Taylor 12/01/2024 LVEF 60-65%, nl RV, mild-mod MR Code(s): I50.30 - Unspecified diastolic (congestive) heart failure Category: Medical Qualifiers: Heart failure chronicity: acute Qualified Code(s): I50.31 - Acute diastolic (congestive) heart failure Plan: Continue Jardiance metoprolol and change furosemide to torsemide 20 mg daily. Patient was advised to check her weight daily and report the readings after 3 days. Basic metabolic panel will be checked today. (2) Atrial fibrillation with rapid ventricular response: Code(s): I48.91 - Unspecified atrial fibrillation Category: Medical Plan: On amiodarone diltiazem and beta nasreen anticoagulated on Xarelto. Patient is being referred to business analyst ecommerce for catheter ablation (3) Anemia: Code(s): D64.9 - Anemia, unspecified Category: Medical Plan: Repeat CBC on high dose of iron supplement (4) Morbid obesity: Code(s): E66.01 - Morbid (severe) obesity due to excess calories Category: Medical Plan: Decreasing caloric intake increasing physical activity discussed with the patient. Trying GLP 1 agonist will be discussed during her next visit (5) Hypoventilation associated with obesity: Comment: Noncompliant with CPAP, referred to sleep Medicine Code(s): E66.2 - Morbid (severe) obesity with alveolar hypoventilation Category: Medical Plan: Compliance with the CPAP and supplemental O2 discussed with the patient. She will follow-up with sleep medicine (6) Hyperglycemia: Code(s): R73.9 - Hyperglycemia, unspecified Category: Medical Plan: ADA diet discussed with the patient check A1c Orders: Orders B Type Natriuretic Peptide Today I50.31 - Acute diastolic (congestive) heart failure, I50.9 - Heart failure, unspecified Basic Metabolic Panel 1 Week I50.31 - Acute diastolic (congestive) heart failure Complete Blood Count Auto Diff Today I50.31 - Acute diastolic (congestive) heart failure IRON PROFILE 1 Week D64.9 - Anemia, unspecified, R73.9 - Hyperglycemia, unspecified Vitamin B12 and Folate 1 Week D64.9 - Anemia, unspecified, R73.9 - Hyperglycemia, unspecified Basic Metabolic Panel Today I50.31 - Acute diastolic (congestive) heart failure, I50.9 - Heart failure, unspecified Hemoglobin A1c 1 Week D64.9 - Anemia, unspecified, R73.9 - Hyperglycemia, unspecified Medications: New torsemide 20 mg PO DAILY 30 tabs 0RF
[2025-01-03 13:41] VITALS: BP 130/68; PULSE 81; RESP 20; TEMP 36.9; O2SAT 94; BMI 45.5
--- OUTSIDE RECORDS SUMMARY | 2025-01-03 14:57 | XMS_ITS | Encounter Summary ---
Author Organization [facility] Address [address] [place] [address] Care Team Providers Care Stretcher Leveler Operator Name Role Phone Amita Ruiz MD Primary Care Provider [phone] Encounter Details Date Type Department Care Team (Latest Contact Info) Description 12/18/2024 11:15 AM EST - 12/18/2024 11:59 PM [facility] Hospital Encounter [facility] Radiation Oncology [address] [facility] 2nd [place] [address] Pari Martinez MD [address] [place] [address] Discharge Disposition: Home or Self Care Social [...] each day with dinner. Take with food. documented as of this encounter Discharge Disposition Disposition Code Departure Means Destination Home or Self Care documented in this encounter Plan of Treatment Upcoming Encounters Date Type Department Care Team (Late st Contact Info) Description 01/04/2025 9:00 AM EST Appointment [facility] Radiation Oncology [address] [place] [phone] 01/05/2025 9:00 AM EST Appointment [facility] Radiation Oncology [address] [place] [phone] 01/05/2025 9:10 AM EST Appointment [facility] Radiation Oncology [address] [place] [phone] Radha Bourgeois MD [address] [place] [address] 01/08/2025 9:00 AM EST Appointment [facility] Radiation Oncology [address] [place] [phone] 01/09/2025 9:00 AM EST Appointment [facility] Radiation Oncology [address] [place] [phone] 01/10/2025 9:00 AM EST Appointment [facility] Radiation Oncology [address] [place] [phone] 01/11/2025 9:00 AM EST Appointment [facility] Radiation Oncology [address] [place] [phone] 01/12/2025 9:00 AM EST Appointment [facility] Radiation Oncology [address] [place] [phone] 01/12/2025 9:10 AM EST Appointment [facility] Radiation Oncology [address] [place] [phone] aRdha Bourgeois MD [address] [place] [phone] 01/15/2025 9:00 AM EST Appointment [facility] Radiation Oncology [address] [place] [phone] 01/16/2025 9:00 AM EST Appointment [facility] Radiation Oncology [address] [place] [phone] 01/16/2025 9:10 AM EST Appointment [facility] Radiation Oncology [address] [place] [phone] Radha Bourgeois MD [address] [place] [phone] documented as of this encounter Visit Diagnoses Not on filedocumented in this encounter Additional Health Concerns Infection Onset Date Last Indicated Resolved Time COVID-19 12/01/2024 12/01/2024 12/31/2024 7:04 PM EST documented as of this encounter Care Teams Stretcher Leveler Operator Relationship Specialty Start Date End Date Amita Ruiz MD [address] [place] [phone] PCP - General Internal Medicine 10/13/24 documented as of this encounter
--- OUTSIDE RECORDS SUMMARY | 2025-01-03 14:57 | XMS_ITS | Encounter Summary ---
Author Organization [facility] Address [address] [place] [address] Care Team Providers Care Plastic Press Operator Name Role Phone Amita Riuz MD Primary Care Provider [phone] Encounter Details Date Type Department Care Team (Latest Contact Info) Description 12/21/2024 8:35 AM EST - 12/21/2024 11:59 PM [facility] Hospital Encounter [facility] Radiation Oncology [address] [phone] Discharge Disposition: Home or Self [...] Info) Description 01/04/2025 9:00 AM EST Appointment [facility] Radiation Oncology [address] [place] [phone] 01/05/2025 9:00 AM EST Appointment [facility] Radiation Oncology [address] [place] [phone] 01/05/2025 9:10 AM EST Appointment [facility] Radiation Oncology [address] [place] [phone] Radha Bourgeois MD [address] [place] [phone] 01/08/2025 9:00 AM EST Appointment [facility] Radiation Oncology [address] [place] [phone] 01/09/2025 9:00 AM EST Appointment [facility] Radiation Oncology [address] [place] [phone] 01/10/2025 9:00 AM EST Appointment [facility] Radiation Oncology [address] [place] [phone] 01/11/2025 9:00 AM EST Appointment [facility] Radiation Oncology [address] [place] [phone] 01/12/2025 9:00 AM EST Appointment [facility] Radiation Oncology [address] [place] [phone] 01/12/2025 9:10 AM EST Appointment [facility] Radiation Oncology [address] [place] [phone] Radha Bourgeois MD [address] [place] [phone] 01/15/2025 9:00 AM EST Appointment [facility] Radiation Oncology [address] [place] [phone] 01/16/2025 9:00 AM EST Appointment [facility] Radiation Oncology [address] [place] [phone] 01/16/2025 9:10 AM EST Appointment [facility] Radiation Oncology [address] [place] [phone] Radha Bourgeois MD [address] [place] [phone] documented as of this encounter Procedures Procedure Name Priority Date/Time Associated Diagnosis Comments RAD ONC MSQ TREATMENT SUMMARY Routine 12/21/2024 8:53 AM EST documented in this encounter Results * Rad Onc Msq Treatment Summary (12/21/2024 8:53 AM EST) Treatment Site Right Breast MO SAIQ RADIATION ONCOLOGY Course Number 1 MOSAIQ RADIATION ONCOLOGY Prescribed Fractional Dose 267 cGray MOSAIQ RADIATION ONCOLOGY Prescribed Total Dose 4,272 cGray MOSAIQ RADIATION ONCOLOGY Actual Fractions Delivered 4 MOSAIQ RADIATION ONCOLOGY Prescription Pattern Comment no boost MOSAIQ RADIATION ONCOLOGY Actual Session Delivered Dose 267 cGray MOSAIQ RADIATION ONCOLOGY Actual Total Dose 1,068 cGray MOSAIQ RADIATION ONCOLOGY Prescribed Technique Tangents MOSAIQ RADIATION ONCOLOGY Elapsed Days 3 MOSAIQ RADIATION ONCOLOGY Start Date 12/18/2024 MOSAIQ RADIATION ONCOLOGY Last Date 12/21/2024 MOSAIQ RADIATION ONCOLOGY Prescribed Number of Fractions 16 MOSAIQ RADIATION ONCOLOGY 12/21/2024 8:53 AM EST Physician Radiation Oncology MD [facility]QUE N ONCOLOGY ORDERABLES MOSAIQ RADIATION ONCOLOGY documented in this encounter Visit Diagnoses Not on filedocumented in this encounter Additional Health Concerns Infection Onset Date Last Indicated Resolved Time COVID-19 12/01/2024 12/01/2024 12/31/2024 7:04 PM EST documented as of this encounter Care Teams Plastic Press Operator Relationship Specialty Start Date End Date Amita Ruiz MD [address] [place] [phone] PCP - General Internal Medicine 10/13/24 documented as of this encounter
--- OUTSIDE RECORDS SUMMARY | 2025-01-03 14:57 | XMS_ITS | Encounter Summary ---
Author Organization [facility] Address [address] [place] [address] Care Team Providers Care Fire Captain Marine Name Role Phone Amita Ruiz MD Primary Care Provider [phone] Encounter Details Date Type Department Care Team (Latest Contact Info) Description 12/18/2024 10:53 AM EST - 12/18/2024 11:59 PM [facility] Hospital Encounter [facility] Radiation Oncology [address] [phone] Discharge Disposition: Home or Self [...] Info) Description 01/04/2025 9:00 AM EST Appointment [facility] Radiation Oncology [address] [place] [phone] 01/05/2025 9:00 AM EST Appointment [facility] Radiation Oncology [address] [place] [phone] 01/05/2025 9:10 AM EST Appointment [facility] Radiation Oncology [address] [place] [phone] Radha Bourgeois MD [address] [place] [phone] 01/08/2025 9:00 AM EST Appointment [facility] Radiation Oncology [address] [place] [phone] 01/09/2025 9:00 AM EST Appointment [facility] Radiation Oncology [address] [place] [phone] 01/10/2025 9:00 AM EST Appointment [facility] Radiation Oncology [address] [place] [phone] 01/11/2025 9:00 AM EST Appointment [facility] Radiation Oncology [address] [place] [phone] 01/12/2025 9:00 AM EST Appointment [facility] Radiation Oncology [address] [place] [phone] 01/12/2025 9:10 AM EST Appointment [facility] Radiation Oncology [address] [place] [phone] Radha Bourgeois MD [address] [place] [phone] 01/15/2025 9:00 AM EST Appointment [facility] Radiation Oncology [address] [place] [phone] 01/16/2025 9:00 AM EST Appointment [facility] Radiation Oncology [address] [place] [phone] 01/16/2025 9:10 AM EST Appointment [facility] Radiation Oncology [address] [place] [phone] Radha Bourgeois MD [address] [place] [phone] documented as of this encounter Procedures Procedure [...] documented as of this encounter Care Teams Fire Captain Marine Relationship Specialty Start Date End Date Amita Ruiz MD [address] [place] [phone] PCP - General Internal Medicine 10/13/24 documented as of this encounter
--- OUTSIDE RECORDS SUMMARY | 2025-01-03 14:57 | XMS_ITS | Encounter Summary ---
Author Organization [facility] Address [address] [place] [address] Care Team Providers Care Fuel Distribution System Operator Name Role Phone Amita Ruiz MD Primary Care Provider [phone] Encounter Details Date Type Department Care Team (Latest Contact Info) Description 12/19/2024 8:52 AM EST - 12/19/2024 11:59 PM [facility] Hospital Encounter [facility] Radiation Oncology [address] [phone] Discharge Disposition: Home or Self [...] Info) Description 01/04/2025 9:00 AM EST Appointment [facility] Radiation Oncology [address] [place] [phone] 01/05/2025 9:00 AM EST Appointment [facility] Radiation Oncology [address] [place] [phone] 01/05/2025 9:10 AM EST Appointment [facility] Radiation Oncology [address] [place] [phone] Radha Bourgeois MD [address] [place] [phone] 01/08/2025 9:00 AM EST Appointment [facility] Radiation Oncology [address] [place] [phone] 01/09/2025 9:00 AM EST Appointment [facility] Radiation Oncology [address] [place] [phone] 01/10/2025 9:00 AM EST Appointment [facility] Radiation Oncology [address] [place] [phone] 01/11/2025 9:00 AM EST Appointment [facility] Radiation Oncology [address] [place] [phone] 01/12/2025 9:00 AM EST Appointment [facility] Radiation Oncology [address] [place] [phone] 01/12/2025 9:10 AM EST Appointment [facility] Radiation Oncology [address] [place] [phone] Radha Bourgeois MD [address] [place] [phone] 01/15/2025 9:00 AM EST Appointment [facility] Radiation Oncology [address] [place] [phone] 01/16/2025 9:00 AM EST Appointment [facility] Radiation Oncology [address] [place] [phone] 01/16/2025 9:10 AM EST Appointment [facility] Radiation Oncology [address] [place] [phone] Radha Bourgeois MD [address] [place] [phone] documented as of this encounter Procedures Procedure [...] documented as of this encounter Care Teams Fuel Distribution System Operator Relationship Specialty Start Date End Date Amita Ruiz MD [address] [place] [phone] PCP - General Internal Medicine 10/13/24 documented as of this encounter
--- OUTSIDE RECORDS SUMMARY | 2025-01-03 14:57 | XMS_ITS ---
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
--- OUTSIDE RECORDS SUMMARY | 2025-01-03 14:57 | XMS_ITS | Encounter Summary ---
Author Organization [facility] Address [address] [place] [address] Care Team Providers Care Bargeman Name Role Phone Amita Ruiz MD Primary Care Provider [phone] Encounter Details Date Type Department Care Team (Latest Contact Info) Description 12/20/2024 8:41 AM EST - 12/20/2024 11:59 PM [facility] Hospital Encounter [facility] Radiation Oncology [address] [phone] Discharge Disposition: Home or Self [...] Info) Description 01/04/2025 9:00 AM EST Appointment [facility] Radiation Oncology [address] [place] [phone] 01/05/2025 9:00 AM EST Appointment [facility] Radiation Oncology [address] [place] [phone] 01/05/2025 9:10 AM EST Appointment [facility] Radiation Oncology [address] [place] [phone] Radha Bourgeois MD [address] [place] [phone] 01/08/2025 9:00 AM EST Appointment [facility] Radiation Oncology [address] [place] [phone] 01/09/2025 9:00 AM EST Appointment [facility] Radiation Oncology [address] [place] [phone] 01/10/2025 9:00 AM EST Appointment [facility] Radiation Oncology [address] [place] [phone] 01/11/2025 9:00 AM EST Appointment [facility] Radiation Oncology [address] [place] [phone] 01/12/2025 9:00 AM EST Appointment [facility] Radiation Oncology [address] [place] [phone] 01/12/2025 9:10 AM EST Appointment [facility] Radiation Oncology [address] [place] [phone] Radha Bourgeois MD [address] [place] [phone] 01/15/2025 9:00 AM EST Appointment [facility] Radiation Oncology [address] [place] [phone] 01/16/2025 9:00 AM EST Appointment [facility] Radiation Oncology [address] [place] [phone] 01/16/2025 9:10 AM EST Appointment [facility] Radiation Oncology [address] [place] [phone] Radha Bourgeois MD [address] [place] [phone] documented as of this encounter Procedures Procedure Name Priority Date/Time Associated Diagnosis Comments RAD ONC MSQ TREATMENT SUMMARY Routine 12/20/2024 8:56 AM EST documented in this encounter Results * Rad Onc Msq Treatment Summary (12/20/2024 8:56 AM EST) Treatment Site Right Breast [place] SAIQ RADIATION ONCOLOGY Course Number 1 MOSAIQ RADIATION ONCOLOGY Prescribed Fractional Dose 267 cGray MOSAIQ RADIATION ONCOLOGY Prescribed Total Dose 4,272 cGray MOSAIQ RADIATION ONCOLOGY Actual Fractions Delivered 3 MOSAIQ RADIATION ONCOLOGY Prescription Pattern Comment no boost MOSAIQ RADIATION ONCOLOGY Actual Session Delivered Dose 267 cGray MOSAIQ RADIATION ONCOLOGY Actual Total Dose 801 cGray MOSAIQ RADIATION ONCOLOGY Prescribed Technique Tangents MOSAIQ RADIATION ONCOLOGY Elapsed Days 2 MOSAIQ RADIATION ONCOLOGY Start Date 12/18/2024 MOSAIQ RADIATION ONCOLOGY Last Date 12/20/2024 MOSAIQ RADIATION ONCOLOGY Prescribed Number of Fractions 16 MOSAIQ RADIATION ONCOLOGY 12/20/2024 8:56 AM EST Physician Radiation Oncology MD HAQUE N ONCOLOGY ORDERABLES MOSAIQ RADIATION ONCOLOGY documented in this encounter Visit Diagnoses Not on filedocumented in this encounter Additional Health Concerns Infection Onset Date Last Indicated Resolved Time COVID-19 12/01/2024 12/01/2024 12/31/2024 7:04 PM EST documented as of this encounter Care Teams Bargeman Relationship Specialty Start Date End Date Amita Ruiz MD [address] [place] [phone] PCP - General Internal Medicine 10/13/24 documented as of this encounter
--- OUTSIDE RECORDS SUMMARY | 2025-01-03 14:58 | XMS_ITS | Encounter Summary ---
Author Organization [facility] Address [address] [place] [address] Care Team Providers Care Administrative Support Specialist Name Role Phone Amita Ruiz MD Primary Care Provider [phone] Encounter Details Date Type Department Care Team (Late Contact Info) Description 01/03/2025 8:32 AM EST Hospital Encounter [facility] Radiation Oncology [address] [place] [phone] Social History Tobacco Use Types Packs/Day Years [...] Department Care Team (Late Contact Info) Description 01/04/2025 9:00 AM EST Appointment [facility] Radiation Oncology [address] [phone] 01/05/2025 9:00 AM EST Appointment [facility] Radiation Oncology [address] [phone] 01/05/2025 9:10 AM EST Appointment [facility] Radiation Oncology [address] [phone] Radha Bourgeois MD [address] [place] [address] 01/08/2025 9:00 AM EST Appointment [facility] Radiation Oncology [address] [place] [phone] 01/09/2025 9:00 AM EST Appointment [facility] Radiation Oncology [address] [place] [phone] 01/10/2025 9:00 AM EST Appointment [facility] Radiation Oncology [address] [place] [phone] 01/11/2025 9:00 AM EST Appointment [facility] Radiation Oncology [address] [place] [phone] 01/12/2025 9:00 AM EST Appointment [facility] Radiation Oncology [address] [place] [phone] 01/12/2025 9:10 AM EST Appointment [facility] Radiation Oncology [address] [place] [phone] Radha Bourgeois MD [address] [place] [phone] 01/15/2025 9:00 AM EST Appointment [facility] Radiation Oncology [address] [place] [phone] 01/16/2025 9:00 AM EST Appointment [facility] Radiation Oncology [address] [place] [phone] 01/16/2025 9:10 AM EST Appointment [facility] Radiation Oncology [address] [place] [phone] Radha Bourgeois MD [address] [place] [phone] documented as of this encounter Procedures Procedure Name Priority Date/Time Associated Diagnosis Comments RAD ONC MSQ TREATMENT SUMMARY Routine 01/03/2025 8:45 AM EST documented in this encounter Results * Rad Onc Msq Treatment Summary (01/03/2025 8:45 AM EST) Treatment Site Right Breast [place] SAIQ RADIATION ONCOLOGY Course Number 1 MOSAIQ RADIATION ONCOLOGY Prescribed Fractional Dose 267 cGray MOSAIQ RADIATION ONCOLOGY Prescribed Total Dose 4,272 cGray MOSAIQ RADIATION ONCOLOGY Actual Fractions Delivered 7 MOSAIQ RADIATION ONCOLOGY Prescription Pattern Comment no boost MOSAIQ RADIATION ONCOLOGY Actual Session Delivered Dose 267 cGray MOSAIQ RADIATION ONCOLOGY Actual Total Dose 1,869 cGray MOSAIQ RADIATION ONCOLOGY Prescribed Technique Tangents MOSAIQ RADIATION ONCOLOGY Elapsed Days 16 MOSAIQ RADIATION ONCOLOGY Start Date 12/18/2024 MOSAIQ RADIATION ONCOLOGY Last Date 01/03/2025 MOSAIQ RADIATION ONCOLOGY Prescribed Number of Fractions 16 MOSAIQ RADIATION ONCOLOGY 01/03/2025 8:45 AM EST Physician Radiation Oncology RADIATIO N ONCOLOGY ORDERABLES Performing Organization Address City/State/[facility] Co de Phone Number MOSAIQ RADIATION ONCOLOGY documented in this encounter Visit Diagnoses Not on filedocumented in this encounter Care Teams Administrative Support Specialist Relationship Specialty Start Date End Date Amita Ruiz MD [address] [place] [phone] PCP - General Internal Medicine 10/13/24 documented as of this encounter
--- OUTSIDE RECORDS SUMMARY | 2025-01-03 14:58 | XMS_ITS | Encounter Summary ---
Author Organization [facility] Address [address] [place] [address] Care Team Providers Care Electrical Automation Engineer Name Role Phone Amita Ruiz MD Primary Care Provider Encounter Details Date Type Department Care Team (Late Contact Info) Description 01/01/2025 8:28 AM EST Hospital Encounter [facility] Radiation Oncology [address] [place] [phone] Social History Tobacco Use Types Packs/Day Years [...] Info) Description 01/04/2025 9:[address] [facility] Radiation Oncology [address] [phone] 01/05/2025 9:[address] [facility] Radiation Oncology [address] [phone] 01/05/2025 9:[address] [facility] Radiation Oncology [address] [phone] Radha Bourgeois MD [address] [place] [address] 01/08/2025 9:[address] [facility] Radiation Oncology [address] [place] [phone] 01/09/2025 9:[address] [facility] Radiation Oncology [address] [place] [phone] 01/10/2025 9:[address] [facility] Radiation Oncology [address] [place] [phone] 01/11/2025 9:[address] [facility] Radiation Oncology [address] [place] [phone] 01/12/2025 9:[address] [facility] Radiation Oncology [address] [place] [phone] 01/12/2025 9:[address] [facility] Radiation Oncology [address] [place] [phone] Radha Bourgeois MD [address] [place] [phone] 01/15/2025 9:[address] [facility] Radiation Oncology [address] [place] [phone] 01/16/2025 9:[address] [facility] Radiation Oncology [address] [place] [phone] 01/16/2025 9:[address] [facility] Radiation Oncology [address] [place] [phone] Radha Bourgeois MD [address] [place] [phone] documented as of this encounter Procedures Procedure Name Priority Date/Time Associated Diagnosis Comments RAD ONC MSQ TREATMENT SUMMARY Routine 01/01/2025 8:48 AM EST documented in this encounter Results * Rad Onc Msq Treatment Summary (01/01/2025 8:48 AM EST) Treatment Site Right Breast [place] SAIQ RADIATION ONCOLOGY Course Number 1 MOSAIQ RADIATION ONCOLOGY Prescribed Fractional Dose 267 cGray MOSAIQ RADIATION ONCOLOGY Prescribed Total Dose 4,272 cGray MOSAIQ RADIATION ONCOLOGY Actual Fractions Delivered 5 MOSAIQ RADIATION ONCOLOGY Prescription Pattern Comment no boost MOSAIQ RADIATION ONCOLOGY Actual Session Delivered Dose 267 cGray MOSAIQ RADIATION ONCOLOGY Actual Total Dose 1,335 cGray MOSAIQ RADIATION ONCOLOGY Prescribed Technique Tangents MOSAIQ RADIATION ONCOLOGY Elapsed Days 14 MOSAIQ RADIATION ONCOLOGY Start Date 12/18/2024 MOSAIQ RADIATION ONCOLOGY Last Date 01/01/2025 MOSAIQ RADIATION ONCOLOGY Prescribed Number of Fractions 16 MOSAIQ RADIATION ONCOLOGY 01/01/2025 8:48 AM EST Physician Radiation Oncology RADIATIO N ONCOLOGY ORDERABLES MOSAIQ RADIATION ONCOLOGY documented in this encounter Visit Diagnoses Not on filedocumented in this encounter Care Teams Electrical Automation Engineer Relationship Specialty Start Date End Date Amita Ruiz MD [address] [place] [phone] PCP - General Internal Medicine 10/13/24 documented as of this encounter
--- OUTSIDE RECORDS SUMMARY | 2025-01-03 14:58 | XMS_ITS | Encounter Summary ---
Author Organization [facility] Address [address] [place] [address] Care Team Providers Care Neuroradiologist Name Role Phone Amita Ruiz MD Primary Care Provider [phone] Encounter Details Date Type Department Care Team (Late Contact Info) Description 01/02/2025 8:47 AM EST Hospital Encounter [facility] Radiation Oncology [address] [place] [phone] Social History Tobacco Use Types Packs/Day Years [...] Info) Description 01/04/2025 9:00 AM EST Appointment [facility] Radiation Oncology [address] [place] [phone] 01/05/2025 9:00 AM EST Appointment [facility] Radiation Oncology [address] [phone] 01/05/2025 9:10 AM EST Appointment [facility] Radiation Oncology [address] [place] [phone] Radha Bourgeois MD [address] [place] [address] 01/08/2025 9:00 AM EST Appointment [facility] Radiation Oncology [address] [place] [phone] 01/09/2025 9:00 AM EST Appointment [facility] Radiation Oncology [address] [place] [phone] 01/10/2025 9:00 AM EST Appointment [facility] Radiation Oncology [address] [place] [phone] 01/11/2025 9:00 AM EST Appointment [facility] Radiation Oncology [address] [place] [phone] 01/12/2025 9:00 AM EST Appointment [facility] Radiation Oncology [address] [place] [phone] 01/12/2025 9:10 AM EST Appointment [facility] Radiation Oncology [address] [place] [phone] Radha Bourgeois MD [address] [place] [address] 01/15/2025 9:00 AM EST Appointment [facility] Radiation Oncology [address] [place] [phone] 01/16/2025 9:00 AM EST Appointment [facility] Radiation Oncology [address] [place] [phone] 01/16/2025 9:10 AM EST Appointment [facility] Radiation Oncology [address] [place] [phone] Radha Bourgeois MD [address] [place] [phone] documented as of this encounter Procedures Procedure Name Priority Date/Time Associated Diagnosis Comments RAD ONC MSQ TREATMENT SUMMARY Routine 01/02/2025 9:02 AM EST documented in this encounter Results * Rad Onc Msq Treatment Summary (01/02/2025 9:02 AM EST) Treatment Site Right Breast [place] SAIQ RADIATION ONCOLOGY Course Number 1 MOSAIQ RADIATION ONCOLOGY Prescribed Fractional Dose 267 cGray MOSAIQ RADIATION ONCOLOGY Prescribed Total Dose 4,272 cGray MOSAIQ RADIATION ONCOLOGY Actual Fractions Delivered 6 MOSAIQ RADIATION ONCOLOGY Prescription Pattern Comment no boost MOSAIQ RADIATION ONCOLOGY Actual Session Delivered Dose 267 cGray MOSAIQ RADIATION ONCOLOGY Actual Total Dose 1,602 cGray MOSAIQ RADIATION ONCOLOGY Prescribed Technique Tangents MOSAIQ RADIATION ONCOLOGY Elapsed Days 15 MOSAIQ RADIATION ONCOLOGY Start Date 12/18/2024 MOSAIQ RADIATION ONCOLOGY Last Date 01/02/2025 MOSAIQ RADIATION ONCOLOGY Prescribed Number of Fractions 16 MOSAIQ RADIATION ONCOLOGY 01/02/2025 9:02 AM EST Physician Radiation Oncology RADIATIO N ONCOLOGY ORDERABLES Performing Organization Address City/State/[facility] Co de Phone Number MOSAIQ RADIATION ONCOLOGY documented in this encounter Visit Diagnoses Not on filedocumented in this encounter Care Teams Neuroradiologist Relationship Specialty Start Date End Date Amita Ruiz MD [address] [place] [phone] PCP - General Internal Medicine 10/13/24 documented as of this encounter
--- OUTSIDE RECORDS SUMMARY | 2025-01-03 14:58 | XMS_ITS | Encounter Summary ---
Author Organization [facility] Address [address] [place] [address] Care Team Providers Care Motor Boss Name Role Phone Amita Ruiz MD Primary Care Provider [phone] Reason for Visit * Reason Comments Cough Chest Pain * Auth/Cert (Routine) Specialty Diagnoses / Procedures Referred By Contac t Referred To Contact Diagnoses COVID-19 Acute hypoxemic respiratory failure due to COVID-19 ([facility]) Procedures [facility] IP/OBS CARE INITIAL MODERATE LEVEL PER DAY . Fermin Ibanez MD [address] [place] [address] [facility] Emergency [address] [place] [address] Referral ID Status Reason Start Date Expiration Date Visits Re quested Visits Authorized [id number] 1 1 Encounter Details Date Type Department Care Team (Latest Contact Info) Description 12/01/2024 9:30 AM EST - 12/07/2024 4:56 PM [facility] Hospital Encounter [facility] Intermediate Care Unit [address] [place] [phone] Josh Carranza MD [address] [address] Fermin Ibanez MD [address] [place] [address] Neftaly Gabriel MD [address] [place] [address] Nuria Marie MD [address] [place] [phone] COVID (Primary Dx); Peripheral edema Discharge [...] Patient be transferred to the care of [facility] staff for further management of their acute [...] diet, daily weight monitoring. Follow-up with primary mobile equipment servicer outpatient. Recommend KEVIN stockings daily, remove at [...] metoprolol tartrate 100 mg twice daily and [id number] mg daily. Follow-up with primary mobile equipment servicer outpatient. Epistaxis had mild intermittent epistaxis in the setting of oxygen use. H&H remains stable 9.3/32.0. Thyroid cancer status post thyroidectomy: Continue levothyroxine Outpatient Follow-Up Care: Future Appointments Date Time Provider Department Center 12/11/2024 11:30 AM [facility] RADIATION TREATMENT [facility] 12/11/2024 11:45 AM Vinay Lorenzo MD [facility] 12/12/2024 9:00 AM [facility] RAD[facility]ATION TREATMENT [facility] 12/13/2024 9:00 AM [facility] RAD[facility]ATION TREATMENT [facility] 12/14/2024 9:00 AM [facility] RAD[facility]ATION TREATMENT [facility] 12/15/2024 9:00 AM [facility] RAD[facility]ATION TREATMENT [facility] 12[facility]15/2024 9:10 AM Radha Bourgeois MD [facility] 12/18/2024 9:00 AM [facility] RAD[facility]ATION TREATMENT [facility] 12/19/2024 9:00 AM [facility] RAD[facility]ATION TREATMENT [facility] 12/20/2024 9:00 AM [facility] RADIATION TREATMENT [...] 01/01/2025 9:10 AM Radha Bourgeois MD [facility] Discharge Medication List: Your [...] Your Medications These medications were sent to [facility]/pharmacy #[id number] - [place] - [address] [place] [address] Hours: 24-hours dexAMETHasone 1 mg tablet dilTIAZem [...] mg once daily Follow-up with your primary mobile equipment servicer closely outpatient Monitor your weight daily. Notify your mobile equipment servicer if you gain 3 pounds in 1 [...] 2019. 2. L[place] ([id number]) -------- FINAL REPORT -------- Dictated By: Keiko Dyson Dictated Date: 12/04/2024 09:28 ET Assigned Physician: Keiko Dyson Reviewed and Electronically Signed By: Keiko Dyson Signed Date: 12/04/2024 09:32 ET Workstation ID: [id number] Transcribed By: Self Edit Transcribed Date: 12/04/2024 09:[address] Angio Chest wo and/or w Contrast Final Result No pulmonary arterial emboli. No acute findings in the chest. -------- FINAL REPORT -------- Dictated By: ILCO CALDWELL Dictated Date: 12/01/2024 11:53 ET Assigned Physician: LICO CALDWELL Reviewed and Electronically Signed By: LICO CALDWELL Signed Date: 12/01/2024 11:56 ET Workstation ID: [id number] Transcribed By: Self Edit Transcribed Date: 12/01/2024 [...] Rasheed Age: 64 y.o. Sex: female COVID-19 [facility] Physical Therapy Treatment Ambulation: Walking Assistance: Close supervision Device: No device Distance Ambulated (ft): 40 PLOF: Level of [place]: Independent with mobility and functional transfers Lives [...] worsening End of Shift Summary: * Kathleen Cisnreos PT - 12/05/2024 4:04 PM EST Physical [...] 2019. 2. Lungs grossly clear. [employer] AKBAR ([id number]) -------- FINAL REPORT -------- Dictated By: Keiko Dyson Dictated Date: 12/04/2024 09:28 ET Assigned Physician: Keiko Dyson Reviewed and Electronically Signed By: Keiko Dyson Signed Date: 12/04/2024 09:32 ET Workstation ID: [id number] Transcribed By: Self Edit Transcribed Date: 12/04/2024 09:[address] Angio Chest wo and/or w Contrast Final Result No pulmonary arterial emboli. No acute findings in the chest. -------- FINAL REPORT -------- Dictated By: LICO CALDWELL Dictated Date: 12/01/2024 11:53 ET Assigned Physician: LICO CALDWELL Reviewed and Electronically Signed By: LICO CALDWELL Signed Date: 12/01/2024 11:56 ET Workstation ID: [id number] Transcribed By: Self Edit Transcribed Date: 12/01/2024 [...] approximately 40 minutes. Case discussed with Dr. Gabirel. Associated attestation - Neftaly Gabriel MD - [...] diarrhea Has lower extremity swelling, followed by [facility] outpatient. Started on diuretics maybe3 weeks [...] 2019. 2. Lungs grossly [place] ([id number]) -------- FINAL REPORT -------- Dictated By: Keiko Dyson Dictated Date: 12/04/2024 09:28 ET Assigned Physician: Keiko Dyson Reviewed and Electronically Signed By: Keiko Dyson Signed Date: 12/04/2024 09:32 ET Workstation ID: [id number] Transcribed By: Self Edit Transcribed Date: 12/04/2024 09:[address] Angio Chest wo and/or w Contrast Final Result No pulmonary arterial emboli. No acute findings in the chest. -------- FINAL REPORT -------- Dictated By: LICO CALDWELL Dictated Date: 12/01/2024 11:53 ET Assigned Physician: LICO CALDWELL Reviewed and Electronically Signed By: LICO CALDWELL Signed Date: 12/01/2024 11:56 ET Workstation ID: [id number] Transcribed By: Self Edit Transcribed Date: 12/01/2024 [...] of Steps 3 Prior Function Level of [place] Independent with mobility and functional transfers Ambulation [...] with decreased activity tolerance and hr ranging [id number] with limited ambulation while on 2.5lpm 02. [...] Discharge Needs Discipline following for SNF placement [employer] Person Informed Choice Informed Choice Given? Yes ELDON: 12/04-12/05 Plan: home self care Barriers: 2L covid + Therapy Eval: na Referral status: na patient and family decline services Auth status: na Last BM: 12/03 Pharmacy: [facility] HCP: Yes Support Persons and Availability: Significant Other PCP: Amita Ruzi MD * AKBAR Mcclain - 12/03/2024 11:39 AM EST Yaquelin Rasheed 12/01[birth year] 64 y.o. [id number] Neftaly Gabriel MD SUBJECTIVE : Improving shortness [...] dictate portions of this document. Errors in plaster block layer may be present. Please call / cortext [...] EST Yaquelin Rasheed 12/[birth year] 64 y.o. [id number] Neftaly Gabriel MD SUBJECTIVE : Reported dry [...] dictate portions of this document. Errors in plaster block layer may be present. Please call / cortext [...] Procedure Abnormality Status --------- ------ CBC auto differential[[id number]] Please view results for these tests on [...] PHYSICAL Please contact author [AKBAR Mcclellan] via [employer]. Patient: Yaquelin Rasheed Admission Date/Time: 12/01/2024 9:30 [...] Patient be transferred to the care of [facility] staff for further management of their acute [...] Signed Date: 12/01/2024 11:56 ET Workstation ID: [id number] Transcribed By: Self Edit Transcribed Date: 12/01/2024 [...] onward) Start Ordered 12/01/24 1514 Adult diet [facility]; General, Cardiac; Regular; Sodium 2 gm Restriction Diet effective now Question Answer Comment Location [facility] Diet Type (req) General Diet Type (req) [...] from the original note were not included. [facility] Cardiology- Cardiology Consultation Note PATIENT NAME: Yaquelin Rasheed ([id number]) DATE OF CONSULT: December 06, 2024 REFERRING PROVIDER: Dr. Gabriel PRIMARY TUFTER OPERATOR: Andrea Galarza [facility] ASSESSMENT & PLAN Principal Problem: COVID-19 Active Problems: Acute hypoxemic respiratory failure due to COVID-19 (CMS/HCC) History of atrial fibrillation which is paroxysmal and controlled with metoprolol and amiodarone. Anticoagulated on Xarelto. Present since 2020 Hypertension Obesity [facility] CARD[facility] RECOMMENDATIONS: Add Cardizem CD 120 mg. Patient will follow-up with her primary mobile equipment servicer. I have already notified him I would [...] as though she has iron deficiency. BNP [id number]. High-sensitivity troponin 7. Creatinine has risen to [...] has a past medical history of A-fib ([facility]/HCC), Cancer (CMS/HCC), Gout, Reflux esophagitis, Sleep apnea, [...] 142 Q-T Interval 390 QTc 505 R Idabel 79 T Idabel 33 ECG Interpretation Atrial fibrillation with rapid [...] the record. Also texted with her primary mobile equipment servicer [facility] [address] [place] [address], [address] [place] [address] documented in this encounter Plan of Treatment Upcoming Encounters Date Type Department Care Team (Late st Contact Info) Description 01/04/2025 9:00 AM EST Appointment [facility] Radiation Oncology [address] [place] [phone] 01/05/2025 9:00 AM EST Appointment [facility] Radiation Oncology [address] [place] [phone] 01/05/2025 9:10 AM EST Appointment [facility] Radiation Oncology [address] [place] [phone] Radha Bourgeois MD [address] [place] [phone] 01/08/2025 9:00 AM EST Appointment [facility] Radiation Oncology [address] [place] [phone] 01/09/2025 9:00 AM EST Appointment [facility] Radiation Oncology [address] [place] [phone] 01/10/2025 9:00 AM EST Appointment [facility] Radiation Oncology [address] [place] [phone] 01/11/2025 9:00 AM EST Appointment [facility] Radiation Oncology [address] [place] [phone] 01/12/2025 9:00 AM EST Appointment [facility] Radiation Oncology [address] [place] [phone] 01/12/2025 9:10 AM EST Appointment [facility] Radiation Oncology [address] [place] [phone] Radha Bourgeois MD [address] [place] [phone] 01/15/2025 9:00 AM EST Appointment [facility] Radiation Oncology [address] [place] [phone] 01/16/2025 9:00 AM EST Appointment [facility] Radiation Oncology [address] [phone] 01/16/2025 9:10 AM EST Appointment [facility] Radiation Oncology [address] [place] [phone] Radha Bourgeois MD [address] [place] [address] documented as of this encounter Procedures Procedure [...] Results * Folate (12/07/2024 6:02 AM EST) [facility] Folate 13.9 2.8 - 17.0 ng/ml LAB CHEMISTRY METHOD 12/07/2024 9:35 AM EST [facility] Blood Venous blood specimen / Unknown Venipuncture / Unknown 12/07/2024 6:02 AM EST 12/07/2024 6:49 AM EST Nuria Marie MD LAB BLOOD ORDERABLE S Performing Organization Address [facility]/ZIP Co de Phone Number [facility] [address] [place] [address], * Vitamin B12 (12/07/2024 6:02 AM EST) [facility] Vitamin B-12 698 250 - 900 pcg/mL LAB CHEMISTRY METHOD 12/07/2024 9:59 AM [facility] Blood Venous blood specimen / Unknown Venipuncture / Unknown 12/07/2024 6:02 AM EST 12/07/2024 6:49 AM EST Nuria Marie MD LAB BLOOD ORDERABLE S Performing Organization Address [facility]/ZIP Co de Phone Number [facility] [address] [place] [address], [place] [phone] * (ABNORMAL) CBC auto differential (12/07/2024 6:02 AM EST) [facility] WBC 15.5(H) 4.8 - 10.8 K/mcL LAB HEMETOLOGY METHOD 12/07/2024 7:21 AM [facility] RBC 3.30(L) 3.80 - 4.80 M/mcL LAB HEMETOLOGY METHOD 12/07/2024 7:21 AM [facility] Hemoglobin 9.3(L) 11.5 - 16.0 g/dL LAB HEMETOLOGY METHOD 12/07/2024 7:21 AM [facility] Hematocrit 32.0(L) 35.0 - 47.0 % LAB HEMETOLOGY METHOD 12/07/2024 7:21 AM [facility] MCV 97.6 79.0 - 98.0 FL LAB HEMETOLOGY METHOD 12/07/2024 7:21 AM [facility] MCH 28.4 27.0 - 32.0 pcg LAB HEMETOLOGY METHOD 12/07/2024 7:21 AM [facility] MCHC 29.1(L) 32.0 - 37.0 g/dL LAB HEMETOLOGY METHOD 12/07/2024 7:21 AM [facility] RDW 18.9(H) 11.0 - 15.0 % LAB HEMETOLOGY METHOD 12/07/2024 7:21 AM [facility] Platelets 390 130 - 400 K/mcL LAB HEMETOLOGY METHOD 12/07/2024 7:21 AM [facility] MPV 10.0 7.0 - 11.0 FL LAB HEMETOLOGY METHOD 12/07/2024 7:21 AM [facility] NRBC 0.5 <1.0 % LAB HEMETOLOGY METHOD 12/07/2024 7:21 AM [facility] NRBC Absolute 0.07 <0.10 K/mcL LAB HEMETOLOGY METHOD 12/07/2024 7:21 AM [facility] Neutrophils Relative 74.5 % LAB HEMETOLOGY METHOD 12/07/2024 7:21 AM [facility] Lymphocytes Relative 13.6 % LAB HEMETOLOGY METHOD 12/07/2024 7:21 AM [facility] Monocytes Relative 7.6 % LAB HEMETOLOGY METHOD 12/07/2024 7:21 AM [facility] Eosinophils Relative 0.0 % LAB HEMETOLOGY METHOD 12/07/2024 7:21 AM [facility] Basophils Relative 0.4 % LAB HEMETOLOGY METHOD 12/07/2024 7:21 AM [facility] Immature Granulocytes Relative 3.9 % LAB HEMETOLOGY METHOD 12/07/2024 7:21 AM [facility] Neutrophils Absolute 11.53(H) 1.50 - 7.00 K/mcL LAB HEMETOLOGY METHOD 12/07/2024 7:21 AM [facility] Lymphocytes Absolute 2.10 1.00 - 5.00 K/mcL LAB HEMETOLOGY METHOD 12/07/2024 7:21 AM [facility] Monocytes Absolute 1.18(H) 0.20 - 1.00 K/mcL LAB HEMETOLOGY METHOD 12/07/2024 7:21 AM [facility] Eosinophils Absolute 0.00 0.00 - 0.50 K/mcL LAB HEMETOLOGY METHOD 12/07/2024 7:21 AM [facility] Basophils Absolute 0.06 0.00 - 0.20 K/mcL LAB HEMETOLOGY METHOD 12/07/2024 7:21 AM [facility] Immature Granulocytes Absolute 0.60(H) 0.00 - 0.03 K/mcL LAB HEMETOLOGY METHOD 12/07/2024 7:21 AM [facility] Blood Venous blood specimen / Unknown Venipuncture / Unknown 12/07/2024 6:02 AM EST 12/07/2024 6:51 AM EST Milagro WEBBER LAB BLOOD ORDERABLE S [facility] [address] [place] [address], * (ABNORMAL) Basic metabolic panel (12/07/2024 6:02 AM EST) Sodium 139 133 - 145 mmol/L LAB CHEMISTRY METHOD 12/07/2024 7:57 AM [facility] Potassium 4.5 3.5 - 5.5 mmol/L LAB CHEMISTRY METHOD 12/07/2024 7:57 AM [facility] Chloride 96 96 - 110 mmol/L LAB CHEMISTRY METHOD 12/07/2024 7:57 AM [facility] CO2 38(H) 21 - 32 mmol/L LAB CHEMISTRY METHOD 12/07/2024 7:57 AM [facility] Anion Gap 5 3 - 11 LAB CHEMISTRY METHOD 12/07/2024 7:57 AM [facility] Glucose 153(H) 70 - 100 mg/dL LAB CHEMISTRY METHOD 12/07/2024 7:57 AM [facility] BUN 31(H) 5 - 25 mg/dL LAB CHEMISTRY METHOD 12/07/2024 7:57 AM [facility] Creatinine 1.22(H) 0.50 - 1.10 mg/dL LAB CHEMISTRY METHOD 12/07/2024 7:57 AM [facility] eGFR 50(L) >=60 mL/min/1. 73m2 LAB CHEMISTRY METHOD 12/07/2024 7:57 AM [facility] Comment:Calculation based on the??Chronic Kidney Disease Epidemiology Collaboration (CKD-EPI) equation refit??without adjustment for race. BUN/Creatinine Ratio 25.4 LAB CHEMISTRY METHOD 12/07/2024 7:57 AM [facility] Calcium 8.7 8.5 - 10.5 mg/dL LAB CHEMISTRY METHOD 12/07/2024 7:57 AM [facility] Blood Venous blood specimen / Unknown Venipuncture / Unknown 12/07/2024 6:02 AM EST 12/07/2024 6:49 AM EST Milagro WEBBER LAB BLOOD ORDERABLE S [facility] [address] [place] [address], * (ABNORMAL) CBC auto differential (12/06/2024 6:16 AM EST) [facility] WBC 18.2(H) 4.8 - 10.8 K/mcL LAB HEMETOLOGY METHOD 12/06/2024 8:04 AM [facility] RBC 3.30(L) 3.80 - 4.80 M/mcL LAB HEMETOLOGY METHOD 12/06/2024 8:04 AM [facility] Hemoglobin 9.4(L) 11.5 - 16.0 g/dL LAB HEMETOLOGY METHOD 12/06/2024 8:04 AM [facility] Hematocrit 32.9(L) 35.0 - 47.0 % LAB HEMETOLOGY METHOD 12/06/2024 8:04 AM [facility] MCV 98.5(H) 79.0 - 98.0 FL LAB HEMETOLOGY METHOD 12/06/2024 8:04 AM [facility] MCH 28.1 27.0 - 32.0 pcg LAB HEMETOLOGY METHOD 12/06/2024 8:04 AM [facility] MCHC 28.6(L) 32.0 - 37.0 g/dL LAB HEMETOLOGY METHOD 12/06/2024 8:04 AM [facility] RDW 19.1(H) 11.0 - 15.0 % LAB HEMETOLOGY METHOD 12/06/2024 8:04 AM [facility] Platelets 442(H) 130 - 400 K/mcL LAB HEMETOLOGY METHOD 12/06/2024 8:04 AM [facility] MPV 10.1 7.0 - 11.0 FL LAB HEMETOLOGY METHOD 12/06/2024 8:04 AM [facility] NRBC 0.2 <1.0 % LAB HEMETOLOGY METHOD 12/06/2024 8:04 AM [facility] NRBC Absolute 0.04 <0.10 K/mcL LAB HEMETOLOGY METHOD 12/06/2024 8:04 AM [facility] Neutrophils Relative 79.2 % LAB HEMETOLOGY METHOD 12/06/2024 8:04 AM [facility] Lymphocytes Relative 11.2 % LAB HEMETOLOGY METHOD 12/06/2024 8:04 AM [facility] Monocytes Relative 8.1 % LAB HEMETOLOGY METHOD 12/06/2024 8:04 AM [facility] Eosinophils Relative 0.0 % LAB HEMETOLOGY METHOD 12/06/2024 8:04 AM [facility] Basophils Relative 0.3 % LAB HEMETOLOGY METHOD 12/06/2024 8:04 AM [facility] Immature Granulocytes Relative 1.2 % LAB HEMETOLOGY METHOD 12/06/2024 8:04 AM [facility] Neutrophils Absolute 14.45(H) 1.50 - 7.00 K/mcL LAB HEMETOLOGY METHOD 12/06/2024 8:04 AM [facility] Lymphocytes Absolute 2.05 1.00 - 5.00 K/mcL LAB HEMETOLOGY METHOD 12/06/2024 8:04 AM [facility] Monocytes Absolute 1.48(H) 0.20 - 1.00 K/mcL LAB HEMETOLOGY METHOD 12/06/2024 8:04 AM [facility] Eosinophils Absolute 0.00 0.00 - 0.50 K/mcL LAB HEMETOLOGY METHOD 12/06/2024 8:04 AM [facility] Basophils Absolute 0.05 0.00 - 0.20 K/mcL LAB HEMETOLOGY METHOD 12/06/2024 8:04 AM [facility] Immature Granulocytes Absolute 0.21(H) 0.00 - 0.03 K/mcL LAB HEMETOLOGY METHOD 12/06/2024 8:04 AM [facility] Blood Venous blood specimen / Unknown Venipuncture / Unknown 12/06/2024 6:16 AM EST 12/06/2024 7:16 AM EST Milagro WEBBER LAB BLOOD ORDERABLE S [facility] [address] [place] [address], * (ABNORMAL) Basic metabolic panel (12/06/2024 6:16 AM EST) Pathologist [facility] Sodium 139 133 - 145 mmol/L LAB CHEMISTRY METHOD 12/06/2024 8:32 AM [facility] Potassium 4.4 3.5 - 5.5 mmol/L LAB CHEMISTRY METHOD 12/06/2024 8:32 AM [facility] Chloride 97 96 - 110 mmol/L LAB CHEMISTRY METHOD 12/06/2024 8:32 AM [facility] CO2 39(H) 21 - 32 mmol/L LAB CHEMISTRY METHOD 12/06/2024 8:32 AM [facility] Anion Gap 3 3 - 11 LAB CHEMISTRY METHOD 12/06/2024 8:32 AM [facility] Glucose 125(H) 70 - 100 mg/dL LAB CHEMISTRY METHOD 12/06/2024 8:32 AM [facility] BUN 34(H) 5 - 25 mg/dL LAB CHEMISTRY METHOD 12/06/2024 8:32 AM [facility] Creatinine 1.40(H) 0.50 - 1.10 mg/dL LAB CHEMISTRY METHOD 12/06/2024 8:32 AM [facility] eGFR 42(L) >=60 mL/min/1. 73m2 LAB CHEMISTRY METHOD 12/06/2024 8:32 AM [facility] Comment:Calculation based on the??Chronic Kidney Disease Epidemiology Collaboration (CKD-EPI) equation refit??without adjustment for race. BUN/Creatinine Ratio 24.3 LAB CHEMISTRY METHOD 12/06/2024 8:32 AM EST [facility] Calcium 8.4(L) 8.5 - 10.5 mg/dL LAB CHEMISTRY METHOD 12/06/2024 8:32 AM EST [facility] Blood Venous blood specimen / Unknown Venipuncture / Unknown 12/06/2024 6:16 AM EST 12/06/2024 7:16 AM EST Milagro WEBBER LAB BLOOD ORDERABLE S [facility] [address] [place] [address], * TRANSTHORACIC ECHOCARDIOGRAM (TTE) COMPLETE W/ CONTRAST (12/05/2024 11:01 AM EST) Left Atrium Minor Idabel 5.6 cm CV PACS Left Atrium Major Idabel 5.5 cm CV PACS [place] Area Sys [...] PROCEDURES * Magnesium (12/05/2024 6:19 AM EST) Magnesium 1.9 1.9 - 2.6 mg/dL LAB CHEMISTRY METHOD 12/05/2024 7:40 AM EST [facility] Blood Venous blood specimen / Unknown Venipuncture / Unknown 12/05/2024 6:19 AM EST 12/05/2024 6:59 AM EST Milagro WEBBER LAB BLOOD ORDERABLE S [facility] [address] [place] [address], * (ABNORMAL) Basic metabolic panel (12/05/2024 6:19 AM EST) Sodium 139 133 - 145 mmol/L LAB CHEMISTRY METHOD 12/05/2024 8:10 AM [facility] Potassium 4.8 3.5 - 5.5 mmol/L LAB CHEMISTRY METHOD 12/05/2024 8:10 AM [facility] Chloride 96 96 - 110 mmol/L LAB CHEMISTRY METHOD 12/05/2024 8:10 AM [facility] CO2 41(HH) 21 - 32 mmol/L LAB CHEMISTRY METHOD 12/05/2024 8:10 AM [facility] Anion Gap 2(L) 3 - 11 LAB CHEMISTRY METHOD 12/05/2024 8:10 AM [facility] Glucose 139(H) 70 - 100 mg/dL LAB CHEMISTRY METHOD 12/05/2024 8:10 AM [facility] BUN 32(H) 5 - 25 mg/dL LAB CHEMISTRY METHOD 12/05/2024 8:10 AM [facility] Creatinine 1.35(H) 0.50 - 1.10 mg/dL LAB CHEMISTRY METHOD 12/05/2024 8:10 AM [facility] eGFR 44(L) >=60 mL/min/1. 73m2 LAB CHEMISTRY METHOD 12/05/2024 8:10 AM [facility] Comment:Calculation based on the??Chronic Kidney Disease Epidemiology Collaboration (CKD-EPI) equation refit??without adjustment for race. BUN/Creatinine Ratio 23.7 LAB CHEMISTRY METHOD 12/05/2024 8:10 AM [facility] Calcium 7.9(L) 8.5 - 10.5 mg/dL LAB CHEMISTRY METHOD 12/05/2024 8:10 AM [facility] Blood Venous blood specimen / Unknown Venipuncture / Unknown 12/05/2024 6:19 AM EST 12/05/2024 6:59 AM EST Mil[facility] WEBBER LAB BLOOD ORDERABLE S [facility] LAB [address] [place] [address], * (ABNORMAL) CBC auto differential (12/05/2024 6:18 AM EST) WBC 16.7(H) 4.8 - 10.8 K/mcL LAB HEMETOLOGY METHOD 12/05/2024 7:23 AM [facility] LAB RBC 3.30(L) 3.80 - 4.80 M/mcL LAB HEMETOLOGY METHOD 12/05/2024 7:23 AM [facility] LAB Hemoglobin 9.2(L) 11.5 - 16.0 g/dL LAB HEMETOLOGY METHOD 12/05/2024 7:23 AM [facility] LAB Hematocrit 31.7(L) 35.0 - 47.0 % LAB HEMETOLOGY METHOD 12/05/2024 7:23 AM [facility] LAB MCV 97.5 79.0 - 98.0 FL LAB HEMETOLOGY METHOD 12/05/2024 7:23 AM [facility] LAB MCH 28.3 27.0 - 32.0 pcg LAB HEMETOLOGY METHOD 12/05/2024 7:23 AM [facility] LAB MCHC 29.0(L) 32.0 - 37.0 g/dL LAB HEMETOLOGY METHOD 12/05/2024 7:23 AM [facility] LAB RDW 19.3(H) 11.0 - 15.0 % LAB HEMETOLOGY METHOD 12/05/2024 7:23 AM [facility] LAB Platelets 340 130 - 400 K/mcL LAB HEMETOLOGY METHOD 12/05/2024 7:23 AM [facility] LAB MPV 9.9 7.0 - 11.0 FL LAB HEMETOLOGY METHOD 12/05/2024 7:23 AM [facility] LAB NRBC 0.0 <1.0 % LAB HEMETOLOGY METHOD 12/05/2024 7:23 AM [facility] LAB NRBC Absolute 0.00 <0.10 K/mcL LAB HEMETOLOGY METHOD 12/05/2024 7:23 AM [facility] LAB Neutrophils Relative 81.0 % LAB HEMETOLOGY METHOD 12/05/2024 7:23 AM [facility] LAB Lymphocytes Relative 10.3 % LAB HEMETOLOGY METHOD 12/05/2024 7:23 AM [facility] LAB Monocytes Relative 7.7 % LAB HEMETOLOGY METHOD 12/05/2024 7:23 AM [facility] LAB Eosinophils Relative 0.0 % LAB HEMETOLOGY METHOD 12/05/2024 7:23 AM [facility] LAB Basophils Relative 0.2 % LAB HEMETOLOGY METHOD 12/05/2024 7:23 AM [facility] LAB Immature Granulocytes Relative 0.8 % LAB HEMETOLOGY METHOD 12/05/2024 7:23 AM [facility] LAB Neutrophils Absolute 13.55(H) 1.50 - 7.00 K/mcL LAB HEMETOLOGY METHOD 12/05/2024 7:23 AM [facility] LAB Lymphocytes Absolute 1.72 1.00 - 5.00 K/mcL LAB HEMETOLOGY METHOD 12/05/2024 7:23 AM [facility] LAB Monocytes Absolute 1.29(H) 0.20 - 1.00 K/mcL LAB HEMETOLOGY METHOD 12/05/2024 7:23 AM [facility] LAB Eosinophils Absolute 0.00 0.00 - 0.50 K/mcL LAB HEMETOLOGY METHOD 12/05/2024 7:23 AM [facility] LAB Basophils Absolute 0.03 0.00 - 0.20 K/mcL LAB HEMETOLOGY METHOD 12/05/2024 7:23 AM [facility] LAB Immature Granulocytes Absolute 0.13(H) 0.00 - 0.03 K/mcL LAB HEMETOLOGY METHOD 12/05/2024 7:23 AM [facility] LAB Blood Venous blood specimen / Unknown Venipuncture / Unknown 12/05/2024 6:18 AM EST 12/05/2024 6:58 AM EST Milagro WEBBER LAB BLOOD ORDERABLE S [facility] LAB [address] [place] [address], * (ABNORMAL) CBC auto differential (12/04/2024 6:08 AM EST) WBC 19.1(H) 4.8 - 10.8 K/[facility] LAB HEMETOLOGY METHOD 12/04/2024 7:26 AM [facility] LAB RBC 3.20(L) 3.80 - 4.80 M/[facility] LAB HEMETOLOGY METHOD 12/04/2024 7:26 AM [facility] LAB Hemoglobin 9.1(L) 11.5 - 16.0 g/dL LAB HEMETOLOGY METHOD 12/04/2024 7:26 AM [facility] LAB Hematocrit 31.6(L) 35.0 - 47.0 % LAB HEMETOLOGY METHOD 12/04/2024 7:26 AM [facility] LAB MCV 98.4(H) 79.0 - 98.0 FL LAB HEMETOLOGY METHOD 12/04/2024 7:26 AM [facility] LAB MCH 28.3 27.0 - 32.0 pcg LAB HEMETOLOGY METHOD 12/04/2024 7:26 AM [facility] LAB MCHC 28.8(L) 32.0 - 37.0 g/dL LAB HEMETOLOGY METHOD 12/04/2024 7:26 AM [facility] LAB RDW 19.9(H) 11.0 - 15.0 % LAB HEMETOLOGY METHOD 12/04/2024 7:26 AM [facility] LAB Platelets 340 130 - 400 K/mcL LAB HEMETOLOGY METHOD 12/04/2024 7:26 AM [facility] LAB MPV 10.1 7.0 - 11.0 FL LAB HEMETOLOGY METHOD 12/04/2024 7:26 AM [facility] LAB NRBC 0.1 <1.0 % LAB HEMETOLOGY METHOD 12/04/2024 7:26 AM [facility] LAB NRBC Absolute 0.02 <0.10 K/mcL LAB HEMETOLOGY METHOD 12/04/2024 7:26 AM [facility] LAB Neutrophils Relative 80.7 % LAB HEMETOLOGY METHOD 12/04/2024 7:26 AM [facility] LAB Lymphocytes Relative 9.8 % LAB HEMETOLOGY METHOD 12/04/2024 7:26 AM [facility] LAB Monocytes Relative 8.1 % LAB HEMETOLOGY METHOD 12/04/2024 7:26 AM [facility] LAB Eosinophils Relative 0.3 % LAB HEMETOLOGY METHOD 12/04/2024 7:26 AM [facility] LAB Basophils Relative 0.2 % LAB HEMETOLOGY METHOD 12/04/2024 7:26 AM [facility] LAB Immature Granulocytes Relative 0.9 % LAB HEMETOLOGY METHOD 12/04/2024 7:26 AM [facility] LAB Neutrophils Absolute 15.40(H) 1.50 - 7.00 K/mcL LAB HEMETOLOGY METHOD 12/04/2024 7:26 AM [facility] LAB Lymphocytes Absolute 1.88 1.00 - 5.00 K/mcL LAB HEMETOLOGY METHOD 12/04/2024 7:26 AM EST [facility] LAB Monocytes Absolute 1.54(H) 0.20 - 1.00 K/[facility] LAB HEMETOLOGY METHOD 12/04/2024 7:26 AM EST [facility] LAB Eosinophils Absolute 0.06 0.00 - 0.50 K/[facility] LAB HEMETOLOGY METHOD 12/04/2024 7:26 AM EST [facility] LAB Basophils Absolute 0.03 0.00 - 0.20 K/[facility] LAB HEMETOLOGY METHOD 12/04/2024 7:26 AM [facility] LAB Immature Granulocytes Absolute 0.18(H) 0.00 - 0.03 K/[facility] LAB HEMETOLOGY METHOD 12/04/2024 7:26 AM [facility] LAB Blood Venous blood specimen / Unknown Venipuncture / Unknown 12/04/2024 6:08 AM EST 12/04/2024 7:10 AM EST Raheel WEBBER LAB BLOOD ORDERAB LES [facility] LAB [address] [place] [address], * (ABNORMAL) Basic metabolic panel (12/04/2024 6:08 AM EST) Sodium 140 133 - 145 mmol/L LAB CHEMISTRY METHOD 12/04/2024 8:14 AM [facility] LAB Potassium 4.7 3.5 - 5.5 mmol/L LAB CHEMISTRY METHOD 12/04/2024 8:14 AM [facility] LAB Chloride 100 96 - 110 mmol/L LAB CHEMISTRY METHOD 12/04/2024 8:14 AM [facility] LAB CO2 39(H) 21 - 32 mmol/L LAB CHEMISTRY METHOD 12/04/2024 8:14 AM [facility] LAB Anion Gap 1(L) 3 - 11 LAB CHEMISTRY METHOD 12/04/2024 8:14 AM [facility] LAB Glucose 134(H) 70 - 100 mg/dL LAB CHEMISTRY METHOD 12/04/2024 8:14 AM [facility] LAB BUN 30(H) 5 - 25 mg/dL LAB CHEMISTRY METHOD 12/04/2024 8:14 AM [facility] LAB Creatinine 1.25(H) 0.50 - 1.10 mg/dL LAB CHEMISTRY METHOD 12/04/2024 8:14 AM [facility] LAB eGFR 48(L) >=60 mL/min/1. 73m2 LAB CHEMISTRY METHOD 12/04/2024 8:14 AM [facility] LAB Comment:Calculation based on the??Chronic Kidney Disease Epidemiology Collaboration (CKD-EPI) equation refit??without adjustment for race. BUN/Creatinine Ratio 24.0 LAB CHEMISTRY METHOD 12/04/2024 8:14 AM [facility] LAB Calcium 8.8 8.5 - 10.5 mg/dL LAB CHEMISTRY METHOD 12/04/2024 8:14 AM [facility] LAB Blood Venous blood specimen / Unknown Venipuncture / Unknown 12/04/2024 6:08 AM EST 12/04/2024 7:07 AM EST Raheel WEBBER LAB BLOOD ORDERAB LES [facility] LAB [address] [place] [address], * XR Chest 1 View (12/03/2024 7:33 PM EST) Anatomical Region Laterality Modality Body Radiographic Dahiana ging 12/04/2024 9:28 AM EST Impressions 12/04/2024 9:32 AM EST Impression: 1. Stable right hemidiaphragmatic elevation since 2019. 2. Lungs grossly clear. Cal WEBBER () -------- FINAL REPORT -------- Dictated By: Keiko Dyson Dictated Date: 12/04/2024 09:28 ET Assigned Physician: Keiko Dyson Reviewed and Electronically Signed By: Keiko Dyson Signed Date: 12/04/2024 09:32 ET Workstation ID: [id number] Transcribed By: Self Edit Transcribed Date: 12/04/2024 [...] 2019. 2. Lungs grossly clear. Cal WEBBER ([id number]) -------- FINAL REPORT -------- Dictated By: Keiko Dyson Dictated Date: 12/04/2024 09:28 ET Assigned Physician: Keiko Dyson Reviewed and Electronically Signed By: Keiko Dyson Signed Date: 12/04/2024 09:32 ET Workstation ID: [id number] Transcribed By: Self Edit Transcribed Date: 12/04/2024 09:28 ET Angelic WEBBER IMG XR PROCEDURES * ECG 12 lead (12/03/2024 7:00 PM EST) Ventricular Rate ECG 101 BPM GEMUSE Atrial Rate 125 BPM GEMUSE QRS Duration 142 ms GEMUSE Q-T Interval 390 ms GEMUSE QTc 505 ms GEMUSE R [place] 79 degrees GEMUSE T [place] 33 degrees GEMUSE ECG Interpretation Atrial fibrillation with rapid ventricular response Right bundle branch block Abnormal ECG When compared with ECG of 01-DEC-2024 09:55, No significant change was found Confirmed by FLORENTIN VANEGAS ([id number]) on 12/04/2024 4:35:43 PM GEMUSE 12/03/2024 7:00 PM EST 12/04/2024 4:35 PM EST Raheel WEBBER ECG ORDERABLES GEMUSE * (ABNORMAL) CBC auto differential (12/03/2024 6:52 AM EST) Pathologist [facility] WBC 15.6(H) 4.8 - 10.8 K/mcL LAB HEMETOLOGY METHOD 12/03/2024 7:59 AM [facility] LAB RBC 2.90(L) 3.80 - 4.80 M/mcL LAB HEMETOLOGY METHOD 12/03/2024 7:59 AM [facility] LAB Hemoglobin 8.3(L) 11.5 - 16.0 g/dL LAB HEMETOLOGY METHOD 12/03/2024 7:59 AM [facility] LAB Hematocrit 28.9(L) 35.0 - 47.0 % LAB HEMETOLOGY METHOD 12/03/2024 7:59 AM [facility] LAB MCV 99.0(H) 79.0 - 98.0 FL LAB HEMETOLOGY METHOD 12/03/2024 7:59 AM [facility] LAB MCH 28.4 27.0 - 32.0 pcg LAB HEMETOLOGY METHOD 12/03/2024 7:59 AM [facility] LAB MCHC 28.7(L) 32.0 - 37.0 g/dL LAB HEMETOLOGY METHOD 12/03/2024 7:59 AM [facility] LAB RDW 19.9(H) 11.0 - 15.0 % LAB HEMETOLOGY METHOD 12/03/2024 7:59 AM [facility] LAB Platelets 253 130 - 400 K/mcL LAB HEMETOLOGY METHOD 12/03/2024 7:59 AM [facility] LAB MPV 10.1 7.0 - 11.0 FL LAB HEMETOLOGY METHOD 12/03/2024 7:59 AM [facility] LAB NRBC 0.0 <1.0 % LAB HEMETOLOGY METHOD 12/03/2024 7:59 AM [facility] LAB NRBC Absolute 0.00 <0.10 K/mcL LAB HEMETOLOGY METHOD 12/03/2024 7:59 AM [facility] LAB Neutrophils Relative 81.6 % LAB HEMETOLOGY METHOD 12/03/2024 7:59 AM [facility] LAB Lymphocytes Relative 9.1 % LAB HEMETOLOGY METHOD 12/03/2024 7:59 AM [facility] LAB Monocytes Relative 8.2 % LAB HEMETOLOGY METHOD 12/03/2024 7:59 AM [facility] LAB Eosinophils Relative 0.0 % LAB HEMETOLOGY METHOD 12/03/2024 7:59 AM [facility] LAB Basophils Relative 0.1 % LAB HEMETOLOGY METHOD 12/03/2024 7:59 AM [facility] LAB Immature Granulocytes Relative 1.0 % LAB HEMETOLOGY METHOD 12/03/2024 7:59 AM [facility] LAB Neutrophils Absolute 12.72(H) 1.50 - 7.00 K/mcL LAB HEMETOLOGY METHOD 12/03/2024 7:59 AM [facility] LAB Lymphocytes Absolute 1.42 1.00 - 5.00 K/mcL LAB HEMETOLOGY METHOD 12/03/2024 7:59 AM EST [facility] LAB Monocytes Absolute 1.27(H) 0.20 - 1.00 K/mcL LAB HEMETOLOGY METHOD 12/03/2024 7:59 AM EST [facility] LAB Eosinophils Absolute 0.00 0.00 - 0.50 K/mcL LAB HEMETOLOGY METHOD 12/03/2024 7:59 AM EST [facility] LAB Basophils Absolute 0.02 0.00 - 0.20 K/[facility] LAB HEMETOLOGY METHOD 12/03/2024 7:59 AM [facility] LAB Immature Granulocytes Absolute 0.15(H) 0.00 - 0.03 K/[facility] LAB HEMETOLOGY METHOD 12/03/2024 7:59 AM [facility] LAB Blood Venous blood specimen / Unknown Venipuncture / Unknown 12/03/2024 6:52 AM EST 12/03/2024 7:27 AM EST Raheel WEBBER LAB BLOOD ORDERAB LES [facility] LAB [address] [place] [address], * (ABNORMAL) Basic metabolic panel (12/03/2024 6:52 AM EST) Sodium 141 133 - 145 mmol/L LAB CHEMISTRY METHOD 12/03/2024 8:12 AM [facility] LAB Potassium 4.2 3.5 - 5.5 mmol/L LAB CHEMISTRY METHOD 12/03/2024 8:12 AM [facility] LAB Chloride 102 96 - 110 mmol/L LAB CHEMISTRY METHOD 12/03/2024 8:12 AM [facility] LAB CO2 37(H) 21 - 32 mmol/L LAB CHEMISTRY METHOD 12/03/2024 8:12 AM [facility] LAB Anion Gap 2(L) 3 - 11 LAB CHEMISTRY METHOD 12/03/2024 8:12 AM [facility] LAB Glucose 127(H) 70 - 100 mg/dL LAB CHEMISTRY METHOD 12/03/2024 8:12 AM [facility] LAB BUN 23 5 - 25 mg/dL LAB CHEMISTRY METHOD 12/03/2024 8:12 AM [facility] LAB Creatinine 1.15(H) 0.50 - 1.10 mg/dL LAB CHEMISTRY METHOD 12/03/2024 8:12 AM [facility] LAB eGFR 53(L) >=60 mL/min/1. 73m2 LAB CHEMISTRY METHOD 12/03/2024 8:12 AM [facility] LAB Comment:Calculation based on the??Chronic Kidney Disease Epidemiology Collaboration (CKD-EPI) equation refit??without adjustment for race. BUN/Creatinine Ratio 20.0 LAB CHEMISTRY METHOD 12/03/2024 8:12 AM [facility] LAB Calcium 8.5 8.5 - 10.5 mg/dL LAB CHEMISTRY METHOD 12/03/2024 8:12 AM [facility] LAB Blood Venous blood specimen / Unknown Venipuncture / Unknown 12/03/2024 6:52 AM EST 12/03/2024 7:27 AM EST Raheel WEBBER LAB BLOOD ORDERAB LES [facility] [address] [place] [address], * Thyroid stimulating hormone (12/02/2024 9:18 AM EST) TSH 1.95 0.40 - 4.00 mcIU/mL LAB CHEMISTRY METHOD 12/02/2024 11:45 AM [facility] LAB Blood Venous blood specimen / Unknown Venipuncture / Unknown 12/02/2024 9:18 AM EST 12/02/2024 9:44 AM EST [facility] LAB BLOOD ORDERAB LES Performing Organization Address City/[facility]/ZIP Co de Phone Number [facility] LAB [address] [place] [address], * Lactate (12/02/2024 9:18 AM EST) Lactate 1.4 0.4 - 2.0 mmol/L LAB CHEMISTRY METHOD 12/02/2024 10:08 AM EST [facility] LAB Blood Venous blood specimen / Unknown Venipuncture / Unknown 12/02/2024 9:18 AM EST 12/02/2024 9:45 AM EST [facility] LAB BLOOD ORDERAB LES Performing Organization Address [facility] Co de Phone Number [facility] [address] [place] [address], * Procalcitonin (12/02/2024 9:18 AM EST) Procalcitonin 0.08 <=0.16 ng/mL LAB CHEMISTRY METHOD 12/02/2024 10:29 AM EST [facility] LAB Blood Venous blood specimen / Unknown Venipuncture / Unknown 12/02/2024 9:18 AM EST 12/02/2024 9:45 AM EST Narrative [facility] LAB - 12/02/2024 10:29 AM EST Procalcitonin [...] any concentrations <2.0 ng/mL are obtained. Raheel WEBBRE LAB BLOOD ORDERAB LES [facility] [address] [place] [address], * (ABNORMAL) CBC auto differential (12/02/2024 6:24 AM EST) WBC 17.3(H) 4.8 - 10.8 K/mcL LAB HEMETOLOGY METHOD 12/02/2024 7:34 AM EST [facility] LAB RBC 3.20(L) 3.80 - 4.80 M/mcL LAB HEMETOLOGY METHOD 12/02/2024 7:34 AM EST [facility] LAB Hemoglobin 9.0(L) 11.5 - 16.0 g/dL LAB HEMETOLOGY METHOD 12/02/2024 7:34 AM [facility] LAB Hematocrit 30.8(L) 35.0 - 47.0 % LAB HEMETOLOGY METHOD 12/02/2024 7:34 AM [facility] LAB MCV 96.9 79.0 - 98.0 FL LAB HEMETOLOGY METHOD 12/02/2024 7:34 AM [facility] LAB MCH 28.3 27.0 - 32.0 pcg LAB HEMETOLOGY METHOD 12/02/2024 7:34 AM [facility] LAB MCHC 29.2(L) 32.0 - 37.0 g/dL LAB HEMETOLOGY METHOD 12/02/2024 7:34 AM [facility] LAB RDW 20.0(H) 11.0 - 15.0 % LAB HEMETOLOGY METHOD 12/02/2024 7:34 AM [facility] LAB Platelets 248 130 - 400 K/mcL LAB HEMETOLOGY METHOD 12/02/2024 7:34 AM [facility] LAB MPV 10.4 7.0 - 11.0 FL LAB HEMETOLOGY METHOD 12/02/2024 7:34 AM [facility] LAB NRBC 0.0 <1.0 % LAB HEMETOLOGY METHOD 12/02/2024 7:34 AM [facility] LAB NRBC Absolute 0.00 <0.10 K/mcL LAB HEMETOLOGY METHOD 12/02/2024 7:34 AM [facility] LAB Neutrophils Relative 86.9 % LAB HEMETOLOGY METHOD 12/02/2024 7:34 AM [facility] LAB Lymphocytes Relative 6.1 % LAB HEMETOLOGY METHOD 12/02/2024 7:34 AM [facility] LAB Monocytes Relative 5.6 % LAB HEMETOLOGY METHOD 12/02/2024 7:34 AM [facility] LAB Eosinophils Relative 0.0 % LAB HEMETOLOGY METHOD 12/02/2024 7:34 AM [facility] LAB Basophils Relative 0.2 % LAB HEMETOLOGY METHOD 12/02/2024 7:34 AM [facility] LAB Immature Granulocytes Relative 1.2 % LAB HEMETOLOGY METHOD 12/02/2024 7:34 AM [facility] LAB Neutrophils Absolute 15.03(H) 1.50 - 7.00 K/mcL LAB HEMETOLOGY METHOD 12/02/2024 7:34 AM [facility] LAB Lymphocytes Absolute 1.05 1.00 - 5.00 K/mcL LAB HEMETOLOGY METHOD 12/02/2024 7:34 AM [facility] LAB Monocytes Absolute 0.96 0.20 - 1.00 K/mcL LAB HEMETOLOGY METHOD 12/02/2024 7:34 AM EST [facility] LAB Eosinophils Absolute 0.00 0.00 - 0.50 K/[facility] LAB HEMETOLOGY METHOD 12/02/2024 7:34 AM EST [facility] LAB Basophils Absolute 0.03 0.00 - 0.20 K/[facility] LAB HEMETOLOGY METHOD 12/02/2024 7:34 AM [facility] LAB Immature Granulocytes Absolute 0.21(H) 0.00 - 0.03 K/[facility] LAB HEMETOLOGY METHOD 12/02/2024 7:34 AM [facility] LAB Blood Venous blood specimen / Unknown Venipuncture / Unknown 12/02/2024 6:24 AM EST 12/02/2024 7:02 AM EST Giovana WEBBER LAB BLOOD ORDERABLES Performing Organization Address City/State/[facility] Co de Phone Number [facility] [address] [place] [address], * (ABNORMAL) Basic metabolic panel (12/02/2024 6:23 AM EST) Sodium 138 133 - 145 mmol/L LAB CHEMISTRY METHOD 12/02/2024 7:41 AM [facility] LAB Potassium 3.8 3.5 - 5.5 mmol/L LAB CHEMISTRY METHOD 12/02/2024 7:41 AM [facility] LAB Chloride 102 96 - 110 mmol/L LAB CHEMISTRY METHOD 12/02/2024 7:41 AM [facility] LAB CO2 33(H) 21 - 32 mmol/L LAB CHEMISTRY METHOD 12/02/2024 7:41 AM [facility] LAB Anion Gap 3 3 - 11 LAB CHEMISTRY METHOD 12/02/2024 7:41 AM [facility] LAB Glucose 149(H) 70 - 100 mg/dL LAB CHEMISTRY METHOD 12/02/2024 7:41 AM [facility] LAB BUN 17 5 - 25 mg/dL LAB CHEMISTRY METHOD 12/02/2024 7:41 AM [facility] LAB Creatinine 1.05 0.50 - 1.10 mg/dL LAB CHEMISTRY METHOD 12/02/2024 7:41 AM [facility] LAB eGFR 59(L) >=60 mL/min/1. 73m2 LAB CHEMISTRY METHOD 12/02/2024 7:41 AM [facility] LAB Comment:Calculation based on the??Chronic Kidney Disease Epidemiology Collaboration (CKD-EPI) equation refit??without adjustment for race. BUN/Creatinine Ratio 16.2 LAB CHEMISTRY METHOD 12/02/2024 7:41 AM [facility] LAB Calcium 8.4(L) 8.5 - 10.5 mg/dL LAB CHEMISTRY METHOD 12/02/2024 7:41 AM [facility] LAB Blood Venous blood specimen / Unknown Venipuncture / Unknown 12/02/2024 6:23 AM EST 12/02/2024 7:03 AM EST Giovana WEBBER LAB BLOOD ORDERABLES Performing Organization Address City/[facility]/ZIP Co de Phone Number [facility] [address] [place] [address], [place] [phone] * (ABNORMAL) Lactate (12/01/2024 4:05 PM EST) Lactate 2.7(H) 0.4 - 2.0 mmol/L LAB CHEMISTRY METHOD 12/01/2024 4:42 PM EST [facility] LAB Blood Venous blood specimen / Unknown Venipuncture / Unknown 12/01/2024 4:05 PM EST 12/01/2024 4:12 PM EST Giovana WEBBER LAB BLOOD ORDERABLES [facility] [address] [place] [address], [place] [phone] * Culture blood (12/01/2024 4:05 PM EST) Culture, Blood No growth at 5 days 12/06/2024 5:01 PM EST [facility] LAB Blood Venous blood specimen / Unknown Venipuncture / Unknown 12/01/2024 4:05 PM EST 12/01/2024 4:13 PM EST Giovana WEBBER LAB MICROBIOLOGY - G ENERAL ORDERABLES [facility] [address] [place] [address], [place] [phone] * Culture blood (12/01/2024 3:47 PM EST) Culture, Blood No growth at 5 days 12/06/2024 5:01 PM EST [facility] LAB Blood Venous blood specimen / Unknown Venipuncture / Unknown 12/01/2024 3:47 PM EST 12/01/2024 4:12 PM EST Giovana WEBBER LAB MICROBIOLOGY - G ENERAL ORDERABLES Performing Organization Address City/[facility]/ZIP Co de Phone Number [facility] [address] [place] [address], [place] [phone] * (ABNORMAL) Prothrombin time with INR (12/01/2024 2:57 PM EST) Protime 19.8(H) 10.6 - 13.9 sec LAB COAGULATION METHOD 12/01/2024 3:24 PM EST [facility] INR 1.6 LAB COAGULATION METHOD 12/01/2024 3:24 PM EST [facility] Blood Venous blood specimen / Unknown Venipuncture / Unknown 12/01/2024 2:57 PM EST 12/01/2024 3:02 PM EST Gi[facility] BLOOD ORDERABLES Performing Organization Address [facility]/ZIP Co de Phone Number [facility] [address] [place] [address], * (ABNORMAL) B-type natriuretic peptide (12/01/2024 2:57 PM EST) BNP 542(H) <=100 pcg/mL LAB CHEMISTRY METHOD 12/01/2024 3:42 PM EST [facility] Blood Venous blood specimen / Unknown Venipuncture / Unknown 12/01/2024 2:57 PM EST 12/01/2024 3:02 PM EST Giovana [place] LAB BLOOD ORDERABLES Performing Organization Address [facility] Co de Phone Number [facility] [address] [place] [address], * CT Angio Chest wo and/or w [...] Signed Date: 12/01/2024 11:56 ET Workstation ID: [id number] Transcribed By: Self Edit Transcribed Date: 12/01/2024 [...] Signed Date: 12/01/2024 11:56 ET Workstation ID: [id number] Transcribed By: Self Edit Transcribed Date: 12/01/2024 11:53 ET Ailyn [facility] IMG CT PROCEDURES * (ABNORMAL) Magnesium (12/01/2024 10:12 AM EST) [facility] Magnesium 1.8(L) 1.9 - 2.6 mg/dL LAB CHEMISTRY METHOD 12/01/2024 3:46 PM EST [facility] Blood Venous blood specimen / Unknown Venipuncture / Unknown 12/01/2024 10:12 AM EST 12/01/2024 10:30 AM EST Giovana [facility] BLOOD ORDERABLES Performing Organization Address City/[facility]/ZIP Co de Phone Number [facility] [address] [place] [address], [place] [phone] * Vitamin B12 and folate (12/01/2024 10:12 AM EST) [facility] Vitamin B-12 468 250 - 900 pcg/mL LAB CHEMISTRY METHOD 12/01/2024 4:12 PM EST [facility] Folate 10.4 2.8 - 17.0 ng/ml LAB CHEMISTRY METHOD 12/01/2024 4:12 PM EST [facility] Blood Venous blood specimen / Unknown Venipuncture / Unknown 12/01/2024 10:12 AM EST 12/01/2024 10:30 AM EST Giovana WEBBER LAB BLOOD ORDERABLES Performing Organization Address City/[facility]/ZIP Co de Phone Number [facility] [address] [place] [address], [place] [phone] * Ferritin (12/01/2024 10:12 AM EST) [facility] Ferritin 31 8 - 252 ng/mL LAB CHEMISTRY METHOD 12/01/2024 3:23 PM EST [facility] Blood Venous blood specimen / Unknown Venipuncture / Unknown 12/01/2024 10:12 AM EST 12/01/2024 10:30 AM EST Giovana WEBBER LAB BLOOD ORDERABLES [facility] [address] [place] [address], [place] [phone] * (ABNORMAL) Iron and TIBC (12/01/2024 10:12 AM EST) [facility] Iron 19(L) 40 - 150 mcg/dL LAB CHEMISTRY METHOD 12/01/2024 2:49 PM EST [facility] TIBC 428 250 - 450 mcg/dL LAB CHEMISTRY METHOD 12/01/2024 2:49 PM EST [facility] Iron Saturation 4(L) 15 - 50 % LAB CHEMISTRY METHOD 12/01/2024 2:49 PM EST [facility] Blood Venous blood specimen / Unknown Venipuncture / Unknown 12/01/2024 10:12 AM EST 12/01/2024 10:30 AM EST Giovana WEBBER LAB BLOOD ORDERABLES [facility] [address] [place] [address], [place] [phone] * Hepatic function panel (12/01/2024 10:12 AM EST) Pathologist [facility] Total Protein 6.5 6.0 - 8.0 g/dL LAB CHEMISTRY METHOD 12/01/2024 2:37 PM EST [facility] Albumin 3.3 3.2 - 5.0 g/dL LAB CHEMISTRY METHOD 12/01/2024 2:37 PM EST [facility] Total Bilirubin 0.5 0.0 - 1.4 mg/dL LAB CHEMISTRY METHOD 12/01/2024 2:37 PM EST [facility] Bilirubin, Direct 0.1 0.0 - 0.3 mg/dL LAB CHEMISTRY METHOD 12/01/2024 2:37 PM [facility] Bilirubin, Indirect 0.4 0.0 - 1.1 mg/dL LAB CHEMISTRY METHOD 12/01/2024 2:37 PM [facility] ALT (SGPT) 21 10 - 60 unit/L LAB CHEMISTRY METHOD 12/01/2024 2:37 PM [facility] AST (SGOT) 12 10 - 42 unit/L LAB CHEMISTRY METHOD 12/01/2024 2:37 PM [facility] Alkaline Phosphatase 68 42 - 121 unit/L LAB CHEMISTRY METHOD 12/01/2024 2:37 PM [facility] Blood Venous blood specimen / Unknown Venipuncture / Unknown 12/01/2024 10:12 AM EST 12/01/2024 10:30 AM EST Giovana WEBBER LAB BLOOD ORDERABLES [facility] [address] [place] [address], * (ABNORMAL) Manual differential (12/01/2024 10:12 AM EST) Neutrophils % 90.0 % LAB HEMETOLOGY METHOD 12/01/2024 11:16 AM [facility] Lymphocytes % 6.0 % LAB HEMETOLOGY METHOD 12/01/2024 11:16 AM [facility] Monocytes % 4.0 % LAB HEMETOLOGY METHOD 12/01/2024 11:16 AM [facility] Eosinophils % 0.0 % LAB HEMETOLOGY METHOD 12/01/2024 11:16 AM [facility] Basophils % 0.0 % LAB HEMETOLOGY METHOD 12/01/2024 11:16 AM [facility] Neutrophils Absolute Manual 20.70(H) 1.50 - 7.00 K/mcL LAB HEMETOLOGY METHOD 12/01/2024 11:16 AM [facility] Lymphocytes Absolute 1.38 1.00 - 5.00 K/mcL LAB HEMETOLOGY METHOD 12/01/2024 11:16 AM [facility] Monocytes Absolute Manual 0.92 0.20 - 1.00 K/mcL LAB HEMETOLOGY METHOD 12/01/2024 11:16 AM [facility] Eosinophils Absolute Manual 0.00 0.00 - 0.50 K/mcL LAB HEMETOLOGY METHOD 12/01/2024 11:16 AM [facility] Basophils Absolute Manual 0.00 0.00 - 0.20 K/mcL LAB HEMETOLOGY METHOD 12/01/2024 11:16 AM [facility] Rbc Morphology Present( A) Consistent with indices, Normal for [place] LAB HEMETOLOGY METHOD 12/01/2024 11:16 AM [facility] Comment:RBC: Morphology agre es with CBC Platelet Morphology - WAM See Note(A) Normal LAB HEMETOLOGY METHOD 12/01/2024 11:16 AM [facility] Comment:PLT: Normal Polychromasia Present Present( A) (none) LAB HEMETOLOGY METHOD 12/01/2024 11:16 AM [facility] Blood Venous blood specimen / Unknown Venipuncture / Unknown 12/01/2024 10:12 AM EST 12/01/2024 10:30 AM EST Ailyn WEBBER LAB BLOOD ORDERABLES [facility] [address] [place] [address], * Troponin I high sensitivity (12/01/2024 10:12 AM EST) [facility] High Sensitivity Troponin I 7 <=54 ng/L LAB CHEMISTRY METHOD 12/01/2024 11:03 AM [facility] Blood Venous blood specimen / Unknown Venipuncture / Unknown 12/01/2024 10:12 AM EST 12/01/2024 10:30 AM EST [facility] - 12/01/2024 11:03 AM EST High levels of biotin in samples may falsely decrease hsTroponin values. ??Use caution when interpreting hsTroponin results in patients taking biotin who exhibit renal impairment (eGFR <60) or in patients taking more than 20 mg/day of biotin. Josh Carranza MD LAB BLOOD ORDERABLE S [facility] [address] [place] [address], * (ABNORMAL) CBC auto differential (12/01/2024 10:12 AM EST) [facility] WBC 23.0(H) 4.8 - 10.8 K/mcL LAB HEMETOLOGY METHOD 12/01/2024 11:16 AM [facility] RBC 3.50(L) 3.80 - 4.80 M/mcL LAB HEMETOLOGY METHOD 12/01/2024 11:16 AM [facility] Hemoglobin 10.0(L) 11.5 - 16.0 g/dL LAB HEMETOLOGY METHOD 12/01/2024 11:16 AM [facility] Hematocrit 33.3(L) 35.0 - 47.0 % LAB HEMETOLOGY METHOD 12/01/2024 11:16 AM [facility] MCV 94.3 79.0 - 98.0 FL LAB HEMETOLOGY METHOD 12/01/2024 11:16 AM EST [facility] MCH 28.3 27.0 - 32.0 pcg LAB HEMETOLOGY METHOD 12/01/2024 11:16 AM EST [facility] MCHC 30.0(L) 32.0 - 37.0 g/dL LAB HEMETOLOGY METHOD 12/01/2024 11:16 AM EST [facility] RDW 20.1(H) 11.0 - 15.0 % LAB HEMETOLOGY METHOD 12/01/2024 11:16 AM EST [facility] Platelets 274 130 - 400 K/mcL LAB HEMETOLOGY METHOD 12/01/2024 11:16 AM [facility] MPV 10.2 7.0 - 11.0 FL LAB HEMETOLOGY METHOD 12/01/2024 11:16 AM EST [facility] NRBC 0.0 <1.0 % LAB HEMETOLOGY METHOD 12/01/2024 11:16 AM [facility] NRBC Absolute 0.00 <0.10 K/mcL LAB HEMETOLOGY METHOD 12/01/2024 11:16 AM [facility] Blood Venous blood specimen / Unknown Venipuncture / Unknown 12/01/2024 10:12 AM EST 12/01/2024 10:30 AM EST Ailyn WEBBER LAB BLOOD ORDERABLES [facility] [address] [place] [address], * (ABNORMAL) Basic metabolic panel (12/01/2024 10:12 AM EST) Sodium 136 133 - 145 mmol/L LAB CHEMISTRY METHOD 12/01/2024 11:00 AM EST [facility] Potassium 3.7 3.5 - 5.5 mmol/L LAB CHEMISTRY METHOD 12/01/2024 11:00 AM [facility] Chloride 99 96 - 110 mmol/L LAB CHEMISTRY METHOD 12/01/2024 11:00 AM [facility] CO2 33(H) 21 - 32 mmol/L LAB CHEMISTRY METHOD 12/01/2024 11:00 AM [facility] Anion Gap 4 3 - 11 LAB CHEMISTRY METHOD 12/01/2024 11:00 AM [facility] Glucose 139(H) 70 - 100 mg/dL LAB CHEMISTRY METHOD 12/01/2024 11:00 AM [facility] BUN 17 5 - 25 mg/dL LAB CHEMISTRY METHOD 12/01/2024 11:00 AM [facility] Creatinine 1.25(H) 0.50 - 1.10 mg/dL LAB CHEMISTRY METHOD 12/01/2024 11:00 AM [facility] eGFR 48(L) >=60 mL/min/1. 73m2 LAB CHEMISTRY METHOD 12/01/2024 11:00 AM [facility] Comment:Calculation based on the??Chronic Kidney Disease Epidemiology Collaboration (CKD-EPI) equation refit??without adjustment for race. BUN/Creatinine Ratio 13.6 LAB CHEMISTRY METHOD 12/01/2024 11:00 AM [facility] Calcium 8.8 8.5 - 10.5 mg/dL LAB CHEMISTRY METHOD 12/01/2024 11:00 AM [facility] Blood Venous blood specimen / Unknown Venipuncture / Unknown 12/01/2024 10:12 AM EST 12/01/2024 10:30 AM EST Ailyn WEBBER LAB BLOOD ORDERABLES [facility] [address] [place] [address], * (ABNORMAL) Respiratory virus panel molecular study (12/01/2024 10:06 AM EST) Adenovirus Detection by PCR Not Detected Not Detected LAB MICROBIOLOGY METHOD 12/01/2024 11:43 AM [facility] Influenza A PCR Not Detected Not Detected LAB MICROBIOLOGY METHOD 12/01/2024 11:43 AM [facility] Influenza B PCR Not Detected Not Detected LAB MICROBIOLOGY METHOD 12/01/2024 11:43 AM [facility] Coronavirus 229E Not Detected Not Detected LAB MICROBIOLOGY METHOD 12/01/2024 11:43 AM [facility] Coronavirus HKU1 Not Detected Not Detected LAB MICROBIOLOGY METHOD 12/01/2024 11:43 AM [facility] Coronavirus OC43 Not Detected Not Detected LAB MICROBIOLOGY METHOD 12/01/2024 11:43 AM [facility] Coronavirus NL63 Not Detected Not Detected LAB MICROBIOLOGY METHOD 12/01/2024 11:43 AM [facility] Parainfluenza Virus 1 Not Detected Not Detected LAB MICROBIOLOGY METHOD 12/01/2024 11:43 AM [facility] Parainfluenza Virus 2 Not Detected Not Detected LAB MICROBIOLOGY METHOD 12/01/2024 11:43 AM [facility] Parainfluenza Virus 3 Not Detected Not Detected LAB MICROBIOLOGY METHOD 12/01/2024 11:43 AM [facility] Parainfluenza Virus 4 Not Detected Not Detected LAB MICROBIOLOGY METHOD 12/01/2024 11:43 AM [facility] RSV PCR Not Detected Not Detected LAB MICROBIOLOGY METHOD 12/01/2024 11:43 AM [facility] Human Metapneumovirus A and B Not Detected Not Detected LAB MICROBIOLOGY METHOD 12/01/2024 11:43 AM [facility] Rhinovirus/Entero virus Not Detected Not Detected LAB MICROBIOLOGY METHOD 12/01/2024 11:43 AM [facility] Bordetella pertussis Not Detected Not Detected LAB MICROBIOLOGY METHOD 12/01/2024 11:43 AM EST [facility] Bordetella parapertussis Not Detected Not Detected LAB MICROBIOLOGY METHOD 12/01/2024 11:43 AM EST [facility] Mycoplasma pneumo by PCR Not Detected Not Detected LAB MICROBIOLOGY METHOD 12/01/2024 11:43 AM EST [facility] Chlamydia pneumoniae Not Detected Not Detected LAB MICROBIOLOGY METHOD 12/01/2024 11:43 AM EST [facility] SARS COV-2 Detected(A ) Not Detected LAB MICROBIOLOGY METHOD 12/01/2024 11:43 AM [facility] Swab Both anterior nares / Unknown Non-blood Collection / Unknown 12/01/2024 10:06 AM EST 12/01/2024 10:13 AM EST [facility] - 12/01/2024 11:43 AM EST Testing was performed using the [employer] ([employer] Respiratory Pathogen PCR Assay. All results must [...] WEBBER LAB MICROBIOLOGY - G ENERAL ORDERABLES [facility] [address] [place] [address], * ECG 12 lead (12/01/2024 9:55 AM EST) Ventricular Rate ECG 111 BPM GEMUSE Atrial Rate 107 BPM GEMUSE QRS Duration 142 ms GEMUSE Q-T Interval 402 ms GEMUSE QTc 546 ms GEMUSE R [place] 77 degrees GEMUSE T [place] 9 degrees GEMUSE ECG Interpretation Atrial fibrillation with rapid ventricular response with premature ventricular or aberrantly conducted complexes Right bundle branch block T wave abnormality, consider lateral ischemia Abnormal ECG No previous ECGs available Confirmed by Theo ROLLINS JAMES ([id number]) on 12/02/2024 3:12:18 PM GEMUSE 12/01/2024 9:55 AM EST 12/02/2024 3:12 PM EST Ailyn WEBBER ECG ORDERABLES PAL * ECG-Annotated (12/01/2024) Provider Onbase MD ECG [...] Every morning before breakfast, First dose on 12/02/24 at 0600, ORAL ROUTE: take on an [...] BENICAR HCT) oral, Daily, First dose on 12/02/24 at 1615, Give both components for BENICAR HCT product, On hold since Wed12/04/2024 at 0820 until manually unheld Given 12/03/2024 9:34 AM EST Given 12/02/2024 4:55 PM EST metoprolol succinate (TOPROL-XL) 24 Hour tablet 100 mg 100 mg, oral, Daily, First dose on 12/02/24 at 0900, Do not crush or chew. Given 12/05/2024 9:29 AM EST 100 mg Given 12/04/2024 9:22 AM EST 100 mg Given 12/03/2024 9:34 AM EST 100 mg metoprolol tartrate (LOPRESSOR) injection 5 mg 5 mg, intravenous, Once, On 12/03/24 at 1930, For 1 dose, For IV [...] mg, oral, Nightly PRN, sleep, Starting on 12/04/24 at 1125 Pump Refill 12/06/2024 8:57 PM [...] Simons RN) 0854 (Given - Provider: Kristine Simons, BAO) dilTIAZem CD (CARDIZEM CD) 24 hr capsule [...] Regan RN) 0922 (Given - Provider: Kristine Simons RN) 0855 [...] Every morning before breakfast, First dose on 12/02/24 at 0600, ORAL ROUTE: take on an [...] or chew. 0929 (Given - Provider: Cheryle eRgan, RN) metoprolol tartrate (LOPRESSOR) tablet 100 mg 100 mg, oral, 2 times daily, First dose on Wed12/05/24 at 2100 2025 (Given - Provider: Cj Morales, BAO) 0921 (Given - Provider: Kirstine Simons, BAO)2056 (Pump Refill - Provider: Nicole Alicia, BAO) 0855 (Given - Provider: Kristine Simons, BAO) pantoprazole (PROTONIX) EC tablet 40 mg 40 mg, oral, Every morning before breakfast, First dose on Wed12/02/24 at 0700, Do not crush, chew, or split. 0646 (Given - Provider: Treasure Padron RN) 0610 (Given - Provider: Cj Morales, BAO) 0606 (Given - Provider: Amina Noonan RN) [...] Regan RN) 1630 (Given - Provider: Kristine Simons RN) 1700 (Canceled Entry - Provider: Automatic [...] 2 minutes 1053 (Given - Provider: Kristine Simons, BAO) traZODone (DESYREL) tablet 50 mg 50 mg, oral, Nightly PRN, sleep, Starting on Wed12/04/24 at 1125 2025 (Given - Provider: Cj Morales RN) 2056 (Pump Refill - Provider: Nicole Alicia, RN) Linked Groups Order Group 1: remdesivir (VEKLURY) [...] intravenous, Every 24 hours, First dose on 12/02/24 at 1600, For 4 doses, -Flush tubing [...] 12/01/2024 11:43 AM EST COVID-19 12/01/2024 12/01/2024 12/31/2024 7:04 PM EST documented as of this encounter Care Teams Motor Boss Relationship Specialty Start Date End Date Amita Ruiz MD [address] [place] [phone] PCP - General Internal Medicine 10/13/24 documented as of this encounter
--- OUTSIDE RECORDS SUMMARY | 2025-01-03 14:58 | XMS_ITS | Clinical Summary ---
Author Organization [facility] Address [address] [place] [address] Phone Care Team Providers Care Online Merchant Name Role Phone Amita Ruiz MD Primary Care Provider [phone] Allergies Active Allergy Reactions Criticality Noted Date [...] a day. 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 Depression with anxiety 11/07/2024 Arthritis 11/07/2024 A-fib 11/07/2024 Hypothyroidism Resolved Problems Problem Noted Date Diagnosed Date Resolved Date Anemia 11/07/2024 11/07/2024 Encounters Date Type Department Care Team Description 01/03/2025 8:32 AM EST Hospital Encounter [facility] [address] [place] [phone] 01/02/2025 8:47 AM EST Hospital Encounter [facility] [address] [place] [phone] 01/01/2025 8:28 AM EST Hospital Encounter [facility] [address] [place] [phone] 12/21/2024 8:35 AM EST - 12/21/2024 11:59 PM EST Hospital Encounter [facility] [address] [place] [phone] Discharge Disposition: Home or Self Care 12/20/2024 8:41 AM EST - 12/20/2024 11:59 PM EST Hospital Encounter [facility] [address] [place] [phone] Discharge Disposition: Home or Self Care 12/19/2024 8:52 AM EST - 12/19/2024 11:59 PM EST Hospital Encounter [facility] [address] [place] [phone] Discharge Disposition: Home or Self Care 12/18/2024 11:15 AM EST - 12/18/2024 11:59 PM EST Hospital Encounter [facility] [address] [place] [phone] Pari Martinez MD Discharge Disposition: Home or Self Care 12/18/2024 10:53 AM EST - 12/18/2024 11:59 PM EST Hospital Encounter [facility] [address] [place] [phone] Discharge Disposition: Home or Self Care 12/01/2024 11:09 AM EST - 12/01/2024 11:59 PM EST Hospital Encounter [facility] [address] [phone] Discharge Disposition: Home or Self Care 12/01/2024 9:30 AM EST - 12/07/2024 4:56 PM EST Hospital Encounter [facility] [address] [place] [phone] Josh Carranza MD Kela, Kashyap Devendrabhai, MD Rasul, Yar M, MD Surendran, Anupama, MD COVID (Primary Dx); Peripheral edema Discharge Disposition: Home-Health Care [facility] 12/01/2024 Telephone [facility] [address] [place] [phone] Hyacinth Pinzon, BAO has covid 11/16/2024 10:00 AM EST - 11/16/2024 11:59 PM EST Hospital Encounter [facility] [address] [place] [phone] Radha Bourgeois MD Malignant neoplasm of right breast in female, estrogen receptor positive, unspecified site of breast (CMS/HCC) Discharge Disposition: Home or Self Care 11/16/2024 9:13 AM EST - 11/16/2024 11:59 PM EST Hospital Encounter [facility] [address] [place] [phone] Malignant neoplasm of upper-outer quadrant of right breast in female, estrogen receptor positive (CMS/HCC) (Primary Dx) Discharge Disposition: Home or Self Care 11/09/2024 12:49 PM EST - 11/09/2024 11:59 PM EST Hospital Encounter [facility] [address] [place] [phone] Radha Bourgeois MD Malignant neoplasm of upper-outer quadrant of right breast in female, estrogen receptor positive (CMS/HCC) (Primary Dx); Malignant neoplasm of right breast in female, estrogen receptor positive, unspecified site of breast (CMS/HCC) Discharge Disposition: Home or Self Care 11/09/2024 12:36 PM EST - 11/09/2024 11:59 PM EST Hospital Encounter [facility] [address] [place] [phone] Discharge Disposition: Home or Self Care 10/13/2024 Telephone [facility] [address] [place] [address] [place] [phone] Elena Connelly MA from Last 3 Months Surgical History Surgery Date Site/Laterality Comments COLONOSCOPY BREAST LUMPECTOMY 09/20/2024 Right PARTIAL HYSTERECTOMY THYROIDECTOMY CYSTOSCOPY Medical History Medical History Date Comments Cancer (CMS/HCC) Gout A-fib ([facility]/HCC) Thyroid cancer ([facility]/HCC) Sleep apnea Reflux esophagitis Family History Medical [...] EST Appointment [facility] [address] [phone] 01/05/2025 9:00 AM EST Appointment [facility] [address] [place] [phone] 01/05/2025 9:10 AM EST Appointment [facility] [address] [place] [phone] Radha Bourgeois MD [address] [place] [phone] 01/08/2025 9:00 AM EST Appointment [facility] [address] [place] [phone] 01/09/2025 9:00 AM EST Appointment [facility] [address] [place] [phone] 01/10/2025 9:00 AM EST Appointment [facility] [address] [place] [phone] 01/11/2025 9:00 AM EST Appointment [facility] [address] [place] [phone] 01/12/2025 9:00 AM EST Appointment [facility] [address] [place] [phone] 01/12/2025 9:10 AM EST Appointment [facility] [address] [place] [phone] Radha Bourgeois MD [address] [place] [phone] 01/15/2025 9:00 AM EST Appointment [facility] [address] [place] [phone] 01/16/2025 9:00 AM EST Appointment [facility] [address] [place] [phone] 01/16/2025 9:10 AM EST Appointment [facility] [address] [place] [phone] Radha Bourgeois MD [address] [place] [phone] Health Maintenance Due Date Last Done Comments [...] years 1-dose series) 2020 COVID-19 Vaccine ( season) 2024 09/29/2021, 03/25/2021, 03/04/2021 Colorectal Cancer [...] TREATMENT SUMMARY Routine 01/03/2025 8:45 AM EST RAD ONC MSQ TREATMENT SUMMARY Routine 01/02/2025 9:02 AM EST RAD ONC MSQ TREATMENT SUMMARY Routine 01/01/2025 8:48 AM EST RAD ONC MSQ TREATMENT SUMMARY Routine 12/21/2024 8:53 AM EST RAD ONC MSQ TREATMENT SUMMARY Routine 12/20/2024 8:56 AM EST RAD ONC MSQ TREATMENT SUMMARY Routine 12/19/2024 [...] RADIATIO N ONCOLOGY ORDERABLES Performing Organization Address City/[facility] Co de Phone Number [facility] RADIATION ONCOLOGY * Rad Onc Msq Treatment Summary (01/02/2025 [...] RADIATIO N ONCOLOGY ORDERABLES [facility]ATION [facility]COL[facility] * Rad Onc Msq Treatment Summary (01/01/2025 [...] RADIATIO N ONCOLOGY ORDERABLES [facility]IATION ONCOL[facility] * Rad Onc Msq Treatment Summary (12/21/2024 [...] 12/21/2024 8:53 AM EST Physician Radiation Oncology RADIATIO N ONCOLOGY ORDERABLES [facility] RADIATION ONCOLOGY * Rad Onc Msq Treatment Summary (12/20/2024 [...] 12/20/2024 8:56 AM EST Physician Radiation Oncology RADIATIO N ONCOLOGY ORDERABLES Performing Organization Address City/[facility]/ZIP Co de Phone Number [facility] RADIATION ONCOLOGY * Rad Onc Msq Treatment Summary (12/19/2024 [...] RADIATIO N ONCOLOGY ORDERABLES Performing Organization Address City/[facility]/ZIP Co de Phone Number [facility] RADIATION ONCOLOGY * Rad Onc Msq Treatment [...] RADIATION ONCOLOGY Prescribed Number of Fractions [facility] RADIATION ONCOLOGY 12/18/2024 11:2 0 AM EST Physician Radiation Oncology RADISETH N ONCOLOGY ORDERABLES [facility] RADIATION ONCOLOGY * (ABNORMAL) CBC auto differential (12/07/2024 6:02 AM EST) Only the most recent of7 resultswithin the time period is included. WBC 15.5(H) 4.8 - 10.8 K/mcL LAB HEMETOLOGY METHOD 12/07/2024 7:[address] [facility] RBC 3.30(L) 3.80 - 4.80 M/mcL LAB HEMETOLOGY METHOD 12/07/2024 7:[address] [facility] Hemoglobin 9.3(L) 11.5 - 16.0 g/dL LAB HEMETOLOGY METHOD 12/07/2024 7:[address] [facility] Hematocrit 32.0(L) 35.0 - 47.0 % LAB HEMETOLOGY METHOD 12/07/2024 7:[address] [facility] MCV 97.6 79.0 - 98.0 FL LAB HEMETOLOGY METHOD 12/07/2024 7:[address] [facility] MCH 28.4 27.0 - 32.0 pcg LAB HEMETOLOGY METHOD 12/07/2024 7:[address] [facility] MCHC 29.1(L) 32.0 - 37.0 g/dL LAB HEMETOLOGY METHOD 12/07/2024 7:[address] [facility] RDW 18.9(H) 11.0 - 15.0 % LAB HEMETOLOGY METHOD 12/07/2024 7:[address] [facility] Platelets 390 130 - 400 K/mcL LAB HEMETOLOGY METHOD 12/07/2024 7:[address] [facility] MPV 10.0 7.0 - 11.0 FL LAB HEMETOLOGY METHOD 12/07/2024 7:[address] [facility] NRBC 0.5 <1.0 % LAB HEMETOLOGY METHOD 12/07/2024 7:[address] [facility] NRBC Absolute 0.07 <0.10 K/mcL LAB HEMETOLOGY METHOD 12/07/2024 7:[address] [facility] Neutrophils Relative 74.5 % LAB HEMETOLOGY METHOD 12/07/2024 7:[address] [facility] Lymphocytes Relative 13.6 % LAB HEMETOLOGY METHOD 12/07/2024 7:[address] [facility] Monocytes Relative 7.6 % LAB HEMETOLOGY METHOD 12/07/2024 7:[address] [facility] Eosinophils Relative 0.0 % LAB HEMETOLOGY METHOD 12/07/2024 7:[address] [facility] Basophils Relative 0.4 % LAB HEMETOLOGY METHOD 12/07/2024 7:[address] [facility] Immature Granulocytes Relative 3.9 % LAB HEMETOLOGY METHOD 12/07/2024 7:[address] [facility] Neutrophils Absolute 11.53(H) 1.50 - 7.00 K/mcL LAB HEMETOLOGY METHOD 12/07/2024 7:[address] [facility] Lymphocytes Absolute 2.10 1.00 - 5.00 K/mcL LAB HEMETOLOGY METHOD 12/07/2024 7:[address] [facility] Monocytes Absolute 1.18(H) 0.20 - 1.00 K/mcL LAB HEMETOLOGY METHOD 12/07/2024 7:[address] [facility] Eosinophils Absolute 0.00 0.00 - 0.50 K/mcL LAB HEMETOLOGY METHOD 12/07/2024 7:21 AM EST [facility] Basophils Absolute 0.06 0.00 - 0.20 K/[facility] LAB HEMETOLOGY METHOD 12/07/2024 7:21 AM EST [facility] Immature Granulocytes Absolute 0.60(H) 0.00 - 0.03 K/mcL LAB HEMETOLOGY METHOD 12/07/2024 7:21 AM EST [facility] Blood Venous blood specimen / Unknown Venipuncture / Unknown 12/07/2024 6:02 AM EST 12/07/2024 6:51 AM EST Milagro WEBBER LAB BLOOD ORDERABLE S Performing Organization Address City/[facility]/ZIP Co de Phone Number [facility] [address] [place] [address], * Folate (12/07/2024 6:02 AM EST) Folate 13.9 2.8 - 17.0 ng/ml LAB CHEMISTRY METHOD 12/07/2024 9:35 AM EST [facility] Blood Venous blood specimen / Unknown Venipuncture / Unknown 12/07/2024 6:02 AM EST 12/07/2024 6:49 AM EST Nuria Marie MD LAB BLOOD ORDERABLE S [facility] [address] [place] [address], * Vitamin B12 (12/07/2024 6:02 AM EST) Vitamin B-12 698 250 - 900 pcg/mL LAB CHEMISTRY METHOD 12/07/2024 9:59 AM EST [facility] Blood Venous blood specimen / Unknown Venipuncture / Unknown 12/07/2024 6:02 AM EST 12/07/2024 6:49 AM EST Nuria Marie MD LAB BLOOD ORDERABLE S [facility] [address] [place] [address], * (ABNORMAL) Basic metabolic panel (12/07/2024 6:02 AM EST) Only the most recent of7 resultswithin the time period is included. Sodium 139 133 - 145 mmol/L LAB CHEMISTRY METHOD 12/07/2024 7:57 AM EST [facility] Potassium 4.5 3.5 - 5.5 mmol/L LAB CHEMISTRY METHOD 12/07/2024 7:[address] [facility] Chloride 96 96 - 110 mmol/L LAB CHEMISTRY METHOD 12/07/2024 7:[address] [facility] CO2 38(H) 21 - 32 mmol/L LAB CHEMISTRY METHOD 12/07/2024 7:[address] [facility] Anion Gap 5 3 - 11 LAB CHEMISTRY METHOD 12/07/2024 7:[address] [facility] Glucose 153(H) 70 - 100 mg/dL LAB CHEMISTRY METHOD 12/07/2024 7:[address] [facility] BUN 31(H) 5 - 25 mg/dL LAB CHEMISTRY METHOD 12/07/2024 7:[address] [facility] Creatinine 1.22(H) 0.50 - 1.10 mg/dL LAB CHEMISTRY METHOD 12/07/2024 7:[address] [facility] eGFR 50(L) >=60 mL/min/1. 73m2 LAB CHEMISTRY METHOD 12/07/2024 7:[address] [facility] Comment:Calculation based on the??Chronic Kidney Disease Epidemiology Collaboration (CKD-EPI) equation refit??without adjustment for race. BUN/Creatinine Ratio 25.4 LAB CHEMISTRY METHOD 12/07/2024 7:[address] [facility] Calcium 8.7 8.5 - 10.5 mg/dL LAB CHEMISTRY METHOD 12/07/2024 7:57 AM EST [facility] Blood Venous blood specimen / Unknown Venipuncture / Unknown 12/07/2024 6:02 AM EST 12/07/2024 6:49 AM EST Milagro WEBBER LAB BLOOD ORDERABLE S [facility] [address] [place] [address], [place] [phone] * TRANSTHORACIC ECHOCARDIOGRAM (TTE) COMPLETE W/ CONTRAST (12/05/2024 11:01 AM EST) Left Atrium Minor Surprise 5.6 cm CV PACS Left Atrium Major Surprise 5.5 cm CV PACS LA Area Sys [...] LAB CHEMISTRY METHOD 12/05/2024 7:40 AM EST [facility] Blood Venous blood specimen / Unknown Venipuncture / Unknown 12/05/2024 6:19 AM EST 12/05/2024 6:59 AM EST Milagro WEBBER LAB BLOOD ORDERABLE S [facility] [address] [place] [address], * XR Chest 1 View (12/03/2024 7:33 PM EST) Anatomical Region Laterality Modality Body Radiographic Dahiana ging 12/04/2024 9:28 AM EST Impressions 12/04/2024 9:32 AM EST Impression: 1. Stable right hemidiaphragmatic elevation since 2019. 2. Lungs grossly clear. Telerad AKBAR ([id number]) -------- FINAL REPORT -------- Dictated By: Keiko Dyson Dictated Date: 12/04/2024 09:28 ET Assigned Physician: Keiko Dyson Reviewed and Electronically Signed By: Keiko Dyson Signed Date: 12/04/2024 09:32 ET Workstation ID: [id number] Transcribed By: Self Edit Transcribed Date: 12/04/2024 [...] elevation since 2019. 2. Lungs grossly clear. Telelula WEBBER ([id number]) -------- FINAL REPORT -------- Dictated By: Keiko Dyson Dictated Date: 12/04/2024 09:28 ET Assigned Physician: Keiko Dyson Reviewed and Electronically Signed By: Keiko Dyson Signed Date: 12/04/2024 09:32 ET Workstation ID: [id number] Transcribed By: Self Edit Transcribed Date: 12/04/2024 09:28 ET Angelic WEBBER IMG XR PROCEDURES * ECG 12 lead (12/03/2024 7:00 PM EST) Only the most recent of2 resultswithin the time period is included. Ventricular Rate ECG 101 BPM GEMUSE Atrial Rate 125 BPM GEMUSE QRS Duration 142 ms GEMUSE Q-T Interval 390 ms GEMUSE QTc 505 ms GEMUSE R Surprise 79 degrees GEMUSE T Surprise 33 degrees GEMUSE ECG Interpretation Atrial fibrillation [...] 9:18 AM EST 12/02/2024 9:45 AM EST [facility] - 12/02/2024 10:29 AM EST Procalcitonin [...] if any concentrations <2.0 ng/mL are obtained. [facility] LAB BLOOD ORDERAB LES Performing Organization Address City/[facility] Co de Phone Number [facility] [address] [place] [address], * Thyroid stimulating hormone (12/02/2024 9:18 AM EST) TSH 1.95 0.40 - 4.00 mcIU/mL LAB CHEMISTRY METHOD 12/02/2024 11:45 AM EST [facility] Blood Venous blood specimen / Unknown Venipuncture / Unknown 12/02/2024 9:18 AM EST 12/02/2024 9:44 AM EST [facility] [place] LAB BLOOD ORDERAB LES Performing Organization Address [facility]/ZIP Co de Phone Number [facility] [address] [place] [address], * Lactate (12/02/2024 9:18 AM EST) Only the most recent of2 resultswithin the time period is included. Lactate 1.4 0.4 - 2.0 mmol/L LAB CHEMISTRY METHOD 12/02/2024 10:08 AM EST [facility] Blood Venous blood specimen / Unknown Venipuncture / Unknown 12/02/2024 9:18 AM EST 12/02/2024 9:45 AM EST Raheel WEBBER LAB BLOOD ORDERAB LES [facility] [address] [place] [address], [place] [phone] * Culture blood (12/01/2024 4:05 PM EST) Only the most recent of2 resultswithin the time period is included. [facility] Culture, Blood No growth at 5 days 12/06/2024 5:01 PM EST [facility] Blood Venous blood specimen / Unknown Venipuncture / Unknown 12/01/2024 4:05 PM EST 12/01/2024 4:13 PM EST Giovana WEBBER LAB MICROBIOLOGY - G ENERAL ORDERABLES Performing Organization Address [facility]/ZIP Co de Phone Number [facility] [address] [place] [address], [place] [phone] * (ABNORMAL) Prothrombin time with INR (12/01/2024 2:57 PM EST) [facility] Protime 19.8(H) 10.6 - 13.9 sec LAB COAGULATION METHOD 12/01/2024 3:24 PM EST [facility] INR 1.6 LAB COAGULATION METHOD 12/01/2024 3:24 PM EST [facility] Blood Venous blood specimen / Unknown Venipuncture / Unknown 12/01/2024 2:57 PM EST 12/01/2024 3:02 PM EST Giovana WEBBER LAB BLOOD ORDERABLES Performing Organization Address City/[facility]/ZIP Co de Phone Number [facility] [address] [place] [address], [place] [phone] * (ABNORMAL) B-type natriuretic peptide (12/01/2024 2:57 PM EST) BNP 542(H) <=100 pcg/mL LAB CHEMISTRY METHOD 12/01/2024 3:42 PM EST [facility] Blood Venous blood specimen / Unknown Venipuncture / Unknown 12/01/2024 2:57 PM EST 12/01/2024 3:02 PM EST Giovana WEBBER LAB BLOOD ORDERABLES [facility] [address] [place] [address], [place] [phone] * CT Angio Chest wo and/or w Contrast (12/01/2024 11:25 AM EST) Anatomical Region Laterality Modality Body Computed Tomogra phy 12/01/2024 11:5 3 AM EST Impressions 12/01/2024 11:56 AM EST No pulmonary arterial emboli. No acute findings in the chest. -------- FINAL REPORT -------- Dictated By: LICO PHILLIPS Dictated Date: 12/01/2024 11:53 ET Assigned Physician: LICO PHILLIPS Reviewed and Electronically Signed By: LICO PHILLIPS Signed Date: 12/01/2024 11:56 ET Workstation ID: [id number] Transcribed By: Self Edit Transcribed Date: 12/01/2024 [...] seen throughout the bones. Procedure Note Lico Phillips MD - 12/01/2024 PROCEDURE: Chest CTA INDICATION: [...] -------- FINAL REPORT -------- Dictated By: LICO PHILLIPS Dictated Date: 12/01/2024 11:53 ET Assigned Physician: LICO PHILLIPS Reviewed and Electronically Signed By: LIOC PHILLIPS Signed Date: 12/01/2024 11:56 ET Workstation ID: [id number] Transcribed By: Self Edit Transcribed Date: 12/01/2024 11:53 ET Ailyn WEBBER G CT PROCEDURES * Troponin I high sensitivity (12/01/2024 10:12 AM EST) [facility] High Sensitivity Troponin I 7 <=54 ng/L [...] LAB BLOOD ORDERABLE S Performing Organization Address City/[facility]/ZIP Co de Phone Number [facility] [address] [place] [address], [place] [phone] * Vitamin B12 and folate (12/01/2024 10:12 AM EST) [facility] Vitamin B-12 468 250 - 900 pcg/mL [...] ORDERABLES [facility] [address] [place] [address], [place] [phone] * (ABNORMAL) Manual differential (12/01/2024 10:12 AM EST) Neutrophils % 90.0 % LAB HEMETOLOGY METHOD 12/01/2024 11:[address] [facility] Lymphocytes % 6.0 % LAB HEMETOLOGY METHOD 12/01/2024 11:[address] [facility] Monocytes % 4.0 % LAB HEMETOLOGY METHOD 12/01/2024 11:[address] [facility] Eosinophils % 0.0 % LAB HEMETOLOGY METHOD 12/01/2024 11:[address] [facility] Basophils % 0.0 % LAB HEMETOLOGY METHOD 12/01/2024 11:[address] [facility] Neutrophils Absolute Manual 20.70(H) 1.50 - 7.00 K/mcL LAB HEMETOLOGY METHOD 12/01/2024 11:[address] [facility] Lymphocytes Absolute 1.38 1.00 - 5.00 K/mcL LAB HEMETOLOGY METHOD 12/01/2024 11:[address] [facility] Monocytes Absolute Manual 0.92 0.20 - 1.00 K/mcL LAB HEMETOLOGY METHOD 12/01/2024 11:[address] [facility] Eosinophils Absolute Manual 0.00 0.00 - 0.50 K/mcL LAB HEMETOLOGY METHOD 12/01/2024 11:[address] [facility] Basophils Absolute Manual 0.00 0.00 - 0.20 K/mcL LAB HEMETOLOGY METHOD 12/01/2024 11:[address] [facility] Rbc Morphology Present( A) Consistent with indices, Normal for LAB HEMETOLOGY METHOD 12/01/2024 11:[address] [facility] Comment:RBC: Morphology agre es with CBC Platelet Morphology - WAM See Note(A) Normal LAB HEMETOLOGY METHOD 12/01/2024 11:[address] [facility] Comment:PLT: Normal Polychromasia Present Present( A) (none) LAB HEMETOLOGY METHOD 12/01/2024 11:16 AM EST [facility] Blood Venous blood specimen / Unknown Venipuncture / Unknown 12/01/2024 10:12 AM EST 12/01/2024 10:30 AM EST Ailyn WEBBER LAB BLOOD ORDERABLES [facility] [address] [place] [address], [place] [phone] * (ABNORMAL) Iron and TIBC (12/01/2024 10:12 AM EST) Iron 19(L) 40 - 150 mcg/dL LAB CHEMISTRY METHOD 12/01/2024 2:49 PM EST [facility] TIBC 428 250 - 450 mcg/dL LAB CHEMISTRY METHOD 12/01/2024 2:49 PM EST [facility] Iron Saturation 4(L) 15 - 50 % LAB CHEMISTRY METHOD 12/01/2024 2:49 PM EST [facility] Blood Venous blood specimen / Unknown Venipuncture / Unknown 12/01/2024 10:12 AM EST 12/01/2024 10:30 AM EST Giovana WEBBER LAB BLOOD ORDERABLES [facility] [address] [place] [address], [place] [phone] * Ferritin (12/01/2024 10:12 AM EST) Ferritin 31 8 - 252 ng/mL LAB CHEMISTRY METHOD 12/01/2024 3:23 PM EST [facility] Blood Venous blood specimen / Unknown Venipuncture / Unknown 12/01/2024 10:12 AM EST 12/01/2024 10:30 AM EST Giovana WEBBER LAB BLOOD ORDERABLES [facility] [address] [place] [address], [place] [phone] * Hepatic function panel (12/01/2024 10:12 AM EST) Total Protein 6.5 6.0 - 8.0 g/dL LAB CHEMISTRY METHOD 12/01/2024 2:37 PM EST [facility] Albumin 3.3 3.2 - 5.0 g/dL LAB CHEMISTRY METHOD 12/01/2024 2:37 PM EST [facility] Total Bilirubin 0.5 0.0 - 1.4 mg/dL LAB CHEMISTRY METHOD 12/01/2024 2:[address] [facility] Bilirubin, Direct 0.1 0.0 - 0.3 mg/dL LAB CHEMISTRY METHOD 12/01/2024 2:37 PM EST [facility] Bilirubin, Indirect 0.4 0.0 - 1.1 mg/dL LAB CHEMISTRY METHOD 12/01/2024 2:[address] [facility] ALT (SGPT) 21 10 - 60 unit/L LAB CHEMISTRY METHOD 12/01/2024 2:[address] [facility] AST (SGOT) 12 10 - 42 unit/L LAB CHEMISTRY METHOD 12/01/2024 2:37 PM EST [facility] Alkaline Phosphatase 68 42 - 121 unit/L LAB CHEMISTRY METHOD 12/01/2024 2:37 PM EST [facility] Blood Venous blood specimen / Unknown Venipuncture / Unknown 12/01/2024 10:12 AM EST 12/01/2024 10:30 AM EST [facility] BLOOD ORDERABLES [facility] [address] [place] [address], [place] [phone] * (ABNORMAL) Respiratory virus panel molecular study (12/01/2024 10:06 AM EST) Pathologist [facility] [place] Adenovirus Detection by PCR Not Detected Not Detected LAB MICROBIOLOGY METHOD 12/01/2024 11:[address] [facility] Influenza A PCR Not Detected Not Detected LAB MICROBIOLOGY METHOD 12/01/2024 11:[address] [facility] Influenza B PCR Not Detected Not Detected LAB MICROBIOLOGY METHOD 12/01/2024 11:[address] [facility] Coronavirus 229E Not Detected Not Detected LAB MICROBIOLOGY METHOD 12/01/2024 11:[address] [facility] Coronavirus HKU1 Not Detected Not Detected LAB MICROBIOLOGY METHOD 12/01/2024 11:[address] [facility] Coronavirus OC43 Not Detected Not Detected LAB MICROBIOLOGY METHOD 12/01/2024 11:[address] [facility] Coronavirus NL63 Not Detected Not Detected LAB MICROBIOLOGY METHOD 12/01/2024 11:[address] [facility] Parainfluenza Virus 1 Not Detected Not Detected LAB MICROBIOLOGY METHOD 12/01/2024 11:[address] [facility] Parainfluenza Virus 2 Not Detected Not Detected LAB MICROBIOLOGY METHOD 12/01/2024 11:[address] [facility] Parainfluenza Virus 3 Not Detected Not Detected LAB MICROBIOLOGY METHOD 12/01/2024 11:[address] [facility] Parainfluenza Virus 4 Not Detected Not Detected LAB MICROBIOLOGY METHOD 12/01/2024 11:[address] [facility] RSV PCR Not Detected Not Detected LAB MICROBIOLOGY METHOD 12/01/2024 11:[address] [facility] Human Metapneumovirus A and B Not Detected Not Detected LAB MICROBIOLOGY METHOD 12/01/2024 11:[address] [facility] Rhinovirus/Entero virus Not Detected Not Detected LAB MICROBIOLOGY METHOD 12/01/2024 11:[address] [facility] Bordetella pertussis Not Detected Not Detected LAB MICROBIOLOGY METHOD 12/01/2024 11:43 AM EST [facility] Bordetella parapertussis Not Detected Not Detected LAB MICROBIOLOGY METHOD 12/01/2024 11:43 AM EST [facility] Mycoplasma pneumo by PCR Not Detected Not Detected LAB MICROBIOLOGY METHOD 12/01/2024 11:43 AM EST [facility] Chlamydia pneumoniae Not Detected Not Detected LAB MICROBIOLOGY METHOD 12/01/2024 11:[address] [facility] SARS COV-2 Detected(A ) Not Detected LAB MICROBIOLOGY METHOD 12/01/2024 11:[address] [facility] Swab Both anterior nares / Unknown Non-blood Collection / Unknown 12/01/2024 10:06 AM EST 12/01/2024 10:13 AM EST [facility] - 12/01/2024 11:43 AM EST Testing was performed using the [employer] Respiratory Pathogen PCR Assay. All results must [...] ORDERABLES [facility] [address] [place] [address], * ECG-Outside (12/01/2024) Only the most recent of2 resultswithin the time period is included. Provider Onbase MD ECG ORDERABLES * ECG-Annotated (12/01/2024) Provider Onbase MD ECG ORDERABLES from Last 3 Months Advance Directives * Full Code - Confirmed [...] currently active code status orders. Care Teams Online Merchant Relationship Specialty Start Date End Date Amita Ruiz MD [address] [place] [address] PCP - General Internal Medicine 10/13/24
== END 2025-01-03 15:53 | disposition home or self-care (01) ==
PROVIDERS: PCP Internal Medicine; Visit Provider Internal Medicine
DX: I50.31 Acute diastolic (congestive) heart failure (principal); I48.91 Unspecified atrial fibrillation; Z68.42 Body mass index [BMI] 45.0-49.9, adult; E66.2 Morbid (severe) obesity with alveolar hypoventilation; D64.9 Anemia, unspecified; R73.9 Hyperglycemia, unspecified

== ENCOUNTER 2025-01-12 09:55 | Outpatient (REF) | payer OTHER, SELFPAY ==
--- OUTSIDE RECORDS SUMMARY | 2025-01-12 10:31 | XMS_ITS | Encounter Summary ---
Author Organization [facility] Address [address] [place] [address] Care Team Providers Care Lead Cashier Name Role Phone Amita Ruiz MD Primary Care Provider [phone] Reason for Visit * Reason Comments OTV Encounter Details Date Type Department Care Team (Latest Contact Info) Description 01/12/2025 8:52 AM EST Hospital Encounter [facility] Radiation Oncology [address] [phone] Radha Bourgeois MD [address] [place] [address] Malignant neoplasm of upper-outer quadrant of right breast in female, estrogen receptor positive (CMS/HCC) (Primary Dx) Social History Tobacco Use Types Packs/Day Years Used Date Smoking Tobacco: Never Smokeless Tobacco: Never Alcohol Use Standard Drinks/Week Comments Not Currently 0 (1 standard drink = 0.6 oz pur e alcohol) Interpersonal Safety Answer Date Record ed Physical Abuse 12/01/2024 Verbal Abuse 12/01/2024 Comments Unknown Sex and Gender Information Value Date Recorded Sex Assigned at Not on file Legal Sex Female 11:11 PM EST Gender Identity Not on file Sexual Orientation Not on file Occupation Industry Job Start Date Job End Date unemployed Not on file Not on file Not on file documented as of this encounter Progress Notes * Hyacinth Pinzon RN - 01/12/2025 9:10 AM EST Accompanied by: Subjective: Are you experiencing any fatigue: yes Are you experiencing any skin reactions: no Do you have any concerns about the treatment area: no Any breast pain: achy and sore Are you using any moisturizer: yes, using eucerin cream to tx area. * Radha Bourgeois MD - 01/12/2025 9:10 AM EST [address] [phone] Radiation Oncology On Treatment Visit Patient Name: Yaquelin Rasheed Attending Provider: Radha Bourgeois MD Encounter Date: 01/12/2025 DIAGNOSIS: 1. Malignant neoplasm of upper-outer quadrant of right breast in female, estrogen receptor positive(CMS/HCC) STAGE: Cancer Staging Malignant neoplasm of upper-outer quadrant of right breast in female, estrogen receptor positive (CMS/HCC) Staging form: Breast, AJCC 8th Edition - Pathologic: Stage IA (pT1c, pN0, cM0, G1, ER+, MI+, HER2-) - Signed by Radha Bourgeois MD on 11/09/2024 Diagnosis: Right breast (UOQ) invasive ductal carcinoma, ER/MI positive, Her2 negative 09/20/24 --right breast Lumpectomy with Dr. Crenshaw. Low Oncotype per pt Oct 2024 - started Letrozole Interval/Dose History: 3D PHARMACIST HELPER: Right Breast Treatment Period Technique Fraction Dose Fractions Total Dose Course 1 12/18/2024-01/12/2025 (days elapsed: 25) Right Breast 12/18/2024-01/12/2025 Tangents 267 / 267 cGy 3738 / 4,272 cGy TOTAL PLANNED DOSE: 4272 cGy in 16 fractions CONCURRENT THERAPY: letrozole, med onc Dr. Koo Accompanied by: Subjective: Are you experiencing any fatigue: yes Are you experiencing any skin reactions: no Do you have any concerns about the treatment area: no Any breast pain: achy and sore Are you using any moisturizer: yes, using eucerin cream to tx area. Physical Exam: There were no vitals filed for this visit. Now on home O2 since having COVID in nov 2024. General: appears well, no apparent distress; awake and alert Right breast: mild erythema in infram fold, in UIQ and in low axilla. Skin intact. Mild fungal reaction in right axilla. Assessment/Plan: She is tolerating treatments well. Continue radiation as scheduled. I have reviewed set-up, dosimetry, and portal images. 12/22/24 - 01/01/25 pt had treatment break due to admission at [facility] due to leg swelling. Mild fungal reaction in right axilla: just started OTC antifungal powder, pt to continue. Will be due for mammogram in Jun 2025. EOT on 01/16/25, FU in ~ 4 weeks with Arabella King NP. FU Dr. Koo late Dec [address] Crenshaw in January 2025 No orders of the defined types were placed in this encounter. documented in this encounter Plan of Treatment Upcoming Encounters Date Type Department Care Team (Late st Contact Info) Description 01/15/2025 9:00 AM EST Appointment [facility] Radiation Oncology [address] [place] [phone] 01/16/2025 9:00 AM EST Appointment [facility] Radiation Oncology [address] [place] [phone] 01/16/2025 9:10 AM EST Appointment [facility] Radiation Oncology [address] [place] [phone] Radha Bourgeois MD [address] [place] [phone] documented as of this encounter Visit Diagnoses Diagnosis 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 empagliflozin (Jardiance) 10 mg tablet Take 1 tablet (10 mg total) by mouth 1 (one) time each day. alendronate (FOSAMAX) 70 mg tablet Take 1 tablet (70 mg total) by mouth every 7 (seven) days. Take in the morning with a full glass of water, on an empty stomach, and do not take anything else by mouth or lie down for the next 30 min. added in this encounter Care Teams Lead Cashier Relationship Specialty Start Date End Date Amita Ruiz MD [address] [place] [phone] PCP - General Internal Medicine 10/13/24 documented as of this encounter
--- OUTSIDE RECORDS SUMMARY | 2025-01-12 10:31 | XMS_ITS ---
Author Organization [facility] Address [address] [place] [address] Care Team Providers Care Associate Director Finance Name Role Phone Amita Ruiz MD Primary Care Provider UnavailArie Royal Jr REASON FOR VISIT screening Encounters Encounter Location Date Provider Diagnosis [facility] [address] [place] [phone] 10/26/2023 Arie Last Jr Encounter for screening colonoscopy Z12.11 and Colon polyps K63.5 ASSESSMENTS Encounter Date Diagnosis Assessment Notes Treatment Notes Treatment Clinical Notes 10/26/2023 Encounter for screening colonoscopy (ICD-10 - Z12.11) 10/26/2023 Colon polyps (ICD-10 - K63.5) PLAN OF TREATMENT No Information
--- OUTSIDE RECORDS SUMMARY | 2025-01-12 10:32 | XMS_ITS | Encounter Summary ---
Author Organization [facility] Address [address] [place] [address] Care Team Providers Care Wind Plant Manager Name Role Phone Amita Ruiz MD Primary Care Provider [phone] Encounter Details Date Type Department Care Team (Latest Contact Info) Description 01/05/2025 8:27 AM EST - 01/05/2025 11:59 PM EST Hospital Encounter [facility] Radiation Oncology [address] [phone] Discharge Disposition: Home or Self [...] this encounter Medications at Time of Discharge allopurinoL (ZYLOPRIM) 100 mg tablet Take 2 tablets (200 mg total) by mouth 1 (one) time each day. amiodarone (PACERONE) 200 mg tablet Take by mouth 1 (one) time each day. cholecalciferol (VITAMIN D-3) 50 mcg (2,000 unit) tablet Take 1 tablet (2,000 Units total) by mouth 1 (one) time each day. dilTIAZem CD (CARDIZEM CD) 120 mg 24 hr capsule Take 1 capsule (120 mg total) by mouth 1 (one) time each day. 30 each 12/08/2024 ferrous sulfate 325 mg (65 mg iron) EC tablet Take 1 tablet (325 mg total) by mouth 2 (two) times a day. Do not crush, chew, or split. furosemide (LASIX) 40 mg tablet Take 1 tablet (40 mg total) by mouth 1 (one) time each day. 30 each 12/07/2024 letrozole (FEMARA) 2.5 mg tablet Take 1 [...] (two) times a day. 60 each 12/07/2024 omeprazole (PriLOSEC) [address] capsule Take 1 capsule (20 mg total) by mouth 1 (one) time if needed. Do not crush or chew. rivaroxaban (XARELTO) 20 mg tablet Take 1 tablet (20 mg total) by mouth 1 (one) time each day with dinner. Take with food. torsemide (DEMADEX) 5 mg tablet Take 4 tablets (20 mg total) by mouth 1 (one) time each day. documented as of this encounter Discharge Disposition Disposition Code Departure Means Destination Home or Self Care documented in this encounter Plan of Treatment Upcoming Encounters Date Type Department Care Team (Late st Contact Info) Description 01/15/2025 9:00 AM EST Appointment [facility] Radiation Oncology [address] [place] [phone] 01/16/2025 9:00 AM EST Appointment [facility] Radiation Oncology [address] [place] [phone] 01/16/2025 9:10 AM EST Appointment [facility] Radiation Oncology [address] [place] [phone] Radha Bourgeois MD [address] [place] [address] documented as of this encounter Procedures Procedure Name Priority Date/Time Associated Diagnosis Comments RAD ONC MSQ TREATMENT SUMMARY Routine 01/05/2025 8:46 AM EST documented in this encounter Results * Rad Onc Msq Treatment Summary (01/05/2025 8:46 AM EST) Treatment Site Right Breast MO SAIQ RADIATION ONCOLOGY Course Number 1 MOSAIQ RADIATION ONCOLOGY Prescribed Fractional Dose 267 cGray MOSAIQ RADIATION ONCOLOGY Prescribed Total Dose 4,272 cGray MOSAIQ RADIATION ONCOLOGY Actual Fractions Delivered 9 MOSAIQ RADIATION ONCOLOGY Prescription Pattern Comment no boost MOSAIQ RADIATION ONCOLOGY Actual Session Delivered Dose 267 cGray MOSAIQ RADIATION ONCOLOGY Actual Total Dose 2,403 cGray MOSAIQ RADIATION ONCOLOGY Prescribed Technique Tangents MOSAIQ RADIATION ONCOLOGY Elapsed Days 18 MOSAIQ RADIATION ONCOLOGY Start Date 12/18/2024 MOSAIQ RADIATION ONCOLOGY Last Date 01/05/2025 MOSAIQ RADIATION ONCOLOGY Prescribed Number of Fractions 16 MOSAIQ RADIATION ONCOLOGY 01/05/2025 8:46 AM EST Physician Radiation Oncology RADIATION ONCOLO GY ORDERABLES Final Result MOSAIQ RADIATION ONCOLOGY documented in this encounter Visit Diagnoses Not on filedocumented in this encounter Care Teams Wind Plant Manager Relationship Specialty Start Date End Date Amita Ruiz MD [address] [place] [phone] PCP - General Internal Medicine 10/13/24 documented as of this encounter
--- OUTSIDE RECORDS SUMMARY | 2025-01-12 10:32 | XMS_ITS | Encounter Summary ---
Author Organization [facility] Address [address] [place] [address] Care Team Providers Care Embedded Software Manager Name Role Phone Amita Ruiz MD Primary Care Provider [phone] Encounter Details Date Type Department Care Team (Latest Contact Info) Description 12/20/2024 8:41 AM EST - 12/20/2024 11:59 PM EST Hospital Encounter [facility] Radiation Oncology [address] [phone] Discharge Disposition: Home or Self [...] this encounter Medications at Time of Discharge amiodarone (PACERONE) 200 mg tablet Take by [...] Info) Description 01/15/2025 9:00 AM EST Appointment [facility] Radiation Oncology [address] [place] [phone] 01/16/2025 9:00 AM EST Appointment [facility] Radiation Oncology [address] [place] [phone] 01/16/2025 9:10 AM EST Appointment [facility] Radiation Oncology [address] [place] [phone] Radha Bourgeois MD [address] [place] [address] documented as of this encounter Procedures Procedure [...] 12/20/2024 8:56 AM EST Physician Radiation Oncology RADIATION ONCOLO GY ORDERABLES Final Result MOSAIQ RADIATION ONCOLOGY documented in this encounter Visit Diagnoses Not on filedocumented in this encounter Additional Health Concerns Infection Onset Date Last Indicated Resolved Time COVID-19 12/01/2024 12/01/2024 12/31/2024 7:04 PM EST documented as of this encounter Care Teams Embedded Software Manager Relationship Specialty Start Date End Date Amita Ruiz MD [address] [place] [phone] PCP - General Internal Medicine 10/13/24 documented as of this encounter
--- OUTSIDE RECORDS SUMMARY | 2025-01-12 10:32 | XMS_ITS | Encounter Summary ---
Author Organization [facility] Address [address] [place] [address] Care Team Providers Care Hog Raiser Name Role Phone Amita Ruiz MD Primary Care Provider [phone] Encounter Details Date Type Department Care Team (Late Contact Info) Description 01/10/2025 8:36 AM EST Hospital Encounter [facility] Radiation Oncology [address] [phone] Social History Tobacco Use Types Packs/Day Years [...] Department Care Team (Late Contact Info) Description 01/15/2025 9:00 AM EST Appointment [facility] Radiation Oncology [address] [phone] 01/16/2025 9:00 AM EST Appointment [facility] Radiation Oncology [address] [phone] 01/16/2025 9:10 AM EST Appointment [facility] Radiation Oncology [address] [phone] Radha Bourgeois MD [address] [place] [address] documented as of this encounter Procedures Procedure Name Priority Date/Time Associated Diagnosis Comments RAD ONC MSQ TREATMENT SUMMARY Routine 01/10/2025 8:47 AM EST documented in this encounter Results * Rad Onc Msq Treatment Summary (01/10/2025 8:47 AM EST) Treatment Site Right Breast MO SAIQ RADIATION ONCOLOGY Course Number 1 MOSAIQ RADIATION ONCOLOGY Prescribed Fractional Dose 267 cGray MOSAIQ RADIATION ONCOLOGY Prescribed Total Dose 4,272 cGray MOSAIQ RADIATION ONCOLOGY Actual Fractions Delivered 12 MOSAIQ RADIATION ONCOLOGY Prescription Pattern Comment no boost MOSAIQ RADIATION ONCOLOGY Actual Session Delivered Dose 267 cGray MOSAIQ RADIATION ONCOLOGY Actual Total Dose 3,204 cGray MOSAIQ RADIATION ONCOLOGY Prescribed Technique Tangents MOSAIQ RADIATION ONCOLOGY Elapsed Days 23 MOSAIQ RADIATION ONCOLOGY Start Date 12/18/2024 MOSAIQ RADIATION ONCOLOGY Last Date 01/10/2025 MOSAIQ RADIATION ONCOLOGY Prescribed Number of Fractions 16 MOSAIQ RADIATION ONCOLOGY 01/10/2025 8:47 AM EST Physician Radiation Oncology MD RADIATION ONCOLO GY ORDERABLES Final Result MOSAIQ RADIATION ONCOLOGY documented in this encounter Visit Diagnoses Not on filedocumented in this encounter Care Teams Hog Raiser Relationship Specialty Start Date End Date Amita Ruiz MD [address] [place] [phone] PCP - General Internal Medicine 10/13/24 documented as of this encounter
--- OUTSIDE RECORDS SUMMARY | 2025-01-12 10:32 | XMS_ITS | Encounter Summary ---
Author Organization [facility] Address [address] [place] [address] Care Team Providers Care Railcar Switchman Name Role Phone Amita Ruiz MD Primary Care Provider [phone] Encounter Details Date Type Department Care Team (Latest Contact Info) Description 12/18/2024 10:53 AM EST - 12/18/2024 11:59 PM EST Hospital Encounter [facility] Radiation Oncology [address] [phone] Discharge Disposition: Home or Self [...] Info) Description 01/15/2025 9:00 AM EST Appointment [facility] Radiation Oncology [address] [place] [phone] 01/16/2025 9:00 AM EST Appointment [facility] Radiation Oncology [address] [place] [phone] 01/16/2025 9:10 AM EST Appointment [facility] Radiation Oncology [address] [place] [phone] Radha Bourgeois MD [address] [place] [address] documented as of this encounter Procedures Procedure [...] 11:2 0 AM EST Physician Radiation Oncology RADIATION ONCOLO GY ORDERABLES Final Result MOSAIQ RADIATION ONCOLOGY documented in this encounter Visit Diagnoses Not on filedocumented in this encounter Additional Health Concerns Infection Onset Date Last Indicated Resolved Time COVID-19 12/01/2024 12/01/2024 12/31/2024 7:04 PM EST documented as of this encounter Care Teams Railcar Switchman Relationship Specialty Start Date End Date Amita Ruiz MD [address] [place] [phone] PCP - General Internal Medicine 10/13/24 documented as of this encounter
--- OUTSIDE RECORDS SUMMARY | 2025-01-12 10:32 | XMS_ITS | Encounter Summary ---
Author Organization [facility] Address [address] [place] [address] Care Team Providers Care Contour Stitcher Name Role Phone Amita Ruiz MD Primary Care Provider [phone] Reason for Visit * Reason Comments OTV Encounter Details Date Type Department Care Team (Latest Contact Info) Description 01/05/2025 8:46 AM EST - 01/05/2025 11:59 PM EST Hospital Encounter [facility] Radiation Oncology [address] [phone] Radha Bourgeois MD [address] [place] [address] Malignant neoplasm of upper-outer quadrant of right breast in female, estrogen receptor positive (CMS/HCC) (Primary Dx) Discharge Disposition: Home or Self Care Social [...] or Self Care documented in this encounter Progress Notes * Hyacinth Pinzon RN - 01/05/2025 9:10 AM EST Are you experiencing any fatigue: yes Are you experiencing any skin reactions: no Do you have any concerns about the treatment area: no Any breast pain: no Are you using any moisturizer: yes, using eucerin cream to tx area. Pt with a fungal rash ib her right axilla. Pt was instructed to use fungal power. * Radha Bourgeois MD - 01/05/2025 9:10 AM EST [address] [phone] Radiation Oncology On Treatment Visit Patient Name: Yaquelin Rasheed Attending Provider: Radha Bourgeois MD Encounter Date: 01/05/2025 DIAGNOSIS: 1. 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 Crenshwa. Low Oncotype per pt Oct 2024 - started Letrozole Interval/Dose History: 3D PUFFER TENDER: Right Breast Treatment Period Technique Fraction Dose Fractions Total Dose Course 1 12/18/2024-01/05/2025 (days elapsed: 18) Right Breast 12/18/2024-01/05/2025 Tangents 267 / 267 cGy 2403 / 4,272 cGy TOTAL PLANNED DOSE: 4272 cGy in 16 fractions CONCURRENT THERAPY: letrozole, med onc Dr. Koo Accompanied by: Subjective: Are you experiencing any fatigue: yes Are you experiencing any skin reactions: no Do you have any concerns about the treatment area: no Any breast pain: no Are you using any moisturizer: yes, using eucerin cream to tx area. Physical Exam: There were no vitals filed for this visit. Now on home O2 since having COVID in nov 2024. General: appears well, no apparent distress; awake and alert Right breast: faint erythema in infram fold. Mild fungal reaction in right axilla. Assessment/Plan: She is tolerating treatments well. Continue radiation as scheduled. I have reviewed set-up, dosimetry, and portal images. 12/22/24 - 01/01/25 pt had treatment break due to admission at [facility] due to leg swelling. Mild fungal reaction in right axilla: just started OTC antifungal powder, pt to continue. Will be due for mammogram in Jun 2025. No orders of the defined types were placed in this encounter. documented in this encounter Plan of Treatment Upcoming Encounters Date Type Department Care Team (Late st Contact Info) Description 01/15/2025 9:00 AM EST Appointment [facility] Radiation Oncology [address] [place] [phone] 01/16/2025 9:00 AM EST Appointment [facility] Radiation Oncology [address] [place] [phone] 01/16/2025 9:10 AM EST Appointment [facility] Radiation Oncology [address] [place] [phone] Radha Bourgeois MD [address] [place] [address] documented as of this encounter Visit Diagnoses Diagnosis 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 allopurinoL (ZYLOPRIM) 100 mg tablet Take 2 tablets (200 mg total) by mouth 1 (one) time each day. torsemide (DEMADEX) 5 mg tablet Take 4 tablets (20 mg total) by mouth 1 (one) time each day. added in this encounter Care Teams Contour Stitcher Relationship Specialty Start Date End Date Amita Ruiz MD [address] [place] [phone] PCP - General Internal Medicine 10/13/24 documented as of this encounter
--- OUTSIDE RECORDS SUMMARY | 2025-01-12 10:32 | XMS_ITS ---
Author Organization [facility] Address [address] [place] [phone] Care Team Providers Care Mba Intern Name Role Phone Amita Ruiz MD Primary Care Provider Arie Eduardo Jr REASON FOR VISIT Xarelto Encounters Encounter Location Date Provider Diagnosis [facility] [address] [place] [phone] 09/22/2023 Arie Last Jr PLAN OF TREATMENT No Information
--- OUTSIDE RECORDS SUMMARY | 2025-01-12 10:32 | XMS_ITS ---
Author Organization [facility] Address [address] [place] [address] Phone Care Team Providers Care Head Of Data Name Role Phone Amita Ruiz MD Primary Care Provider [phone] Active Problems Problem Noted Date Diagnosed Date COVID-19 12/01/2024 Acute hypoxemic respiratory failure due to COVID -19 12/01/2024 Malignant neoplasm of upper- outer quadrant of right breast in female, estrogen receptor positive 11/09/2024 Cancer Staging:Pathologic:Stage IA(pT1c, pN0, cM0, G1, ER+, KS+, HER2-) - Signed by Radha Bourgeois MD [...] Dose Given/Prescribed Technique Right Breast 5 5 25 14 of 16 267 cGy / 267 cGy 3,738 cGy / 4, 272 cGy Tangents Resolved Problems Problem Noted Date Diagnosed Date Resolved Date Anemia 11/07/2024 11/07/2024
--- OUTSIDE RECORDS SUMMARY | 2025-01-12 10:32 | XMS_ITS | Clinical Summary ---
Author Organization [facility] Address [address] [place] [address] Phone Care Team Providers Care Supervisor Evaporator Name Role Phone Amita Ruiz MD Primary Care Provider [phone] Allergies Active Allergy Reactions Criticality Noted Date Comments Erythromycin Pain 11/07/2024 Abdominal pain Lisinopril Rash 11/07/2024 Medications cholecalciferol (VITAMIN D-3) 50 mcg (2,000 unit) [...] 1 (one) time each day. 30 each Active dexAMETHasone (DECADRON) 1 mg tablet Take 6 tablets (6 mg total) by mouth 1 (one) time each day for 4 days. 24 each Active Additional Information Patient not taking.Reported on 01/12/2025 dilTIAZem CD (CARDIZEM CD) 120 mg 24 hr capsule Take 1 capsule (120 mg total) by mouth 1 (one) time each day. 30 each 5 Active Additional Information Patient taking differently: 30 mgoral2 times daily, Reported on 01/12/2025 metoprolol tartrate (LOPRESSOR) 100 mg tablet Take 1 tablet (100 mg total) by mouth 2 (two) times a day. 60 each Active torsemide (DEMADEX) 5 mg tablet Take 4 tablets (20 mg total) by mouth 1 (one) time each day. Active allopurinoL (ZYLOPRIM) 100 mg tablet Take 2 tablets (200 mg total) by mouth 1 (one) time each day. Active alendronate (FOSAMAX) 70 mg tablet Take 1 tablet (70 mg total) by mouth every 7 (seven) days. Take in the morning with a full glass of water, on an empty stomach, and do not take anything else by mouth or lie down for the next 30 min. Active empagliflozin (Jardiance) 10 mg tablet Take 1 tablet (10 mg total) by mouth 1 (one) time each day. 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 11/07/2024 Depression with anxiety 11/07/2024 Arthritis 11/07/2024 A-fib 11/07/2024 Hypothyroidism Resolved Problems Problem Noted Date Diagnosed Date Resolved Date Anemia 11/07/2024 11/07/2024 Encounters Date Type Department Care Team Description 01/12/2025 8:52 AM EST Hospital Encounter [facility] Radiation Oncology [address] [place] [phone] Radha Bourgeois MD Malignant neoplasm of upper-outer quadrant of right breast in female, estrogen receptor positive (CMS/HCC) (Primary Dx) 01/12/2025 8:29 AM EST Hospital Encounter [facility] Radiation Oncology [address] [place] [phone] 01/11/2025 2:03 PM EST Hospital Encounter [facility] Radiation Oncology [address] [place] [phone] 01/10/2025 8:36 AM EST Hospital Encounter [facility] Radiation Oncology [address] [place] [phone] 01/09/2025 8:26 AM EST Hospital Encounter [facility] Radiation Oncology [address] [place] [phone] 01/08/2025 8:46 AM EST - 01/08/2025 11:59 PM EST Hospital Encounter [facility] Radiation Oncology [address] [place] [phone] Discharge Disposition: Home or Self Care 01/05/2025 8:46 AM EST - 01/05/2025 11:59 PM EST Hospital Encounter [facility] Radiation Oncology [address] [place] [phone] Radha Bourgeois MD Malignant neoplasm of upper-outer quadrant of right breast in female, estrogen receptor positive (CMS/HCC) (Primary Dx) Discharge Disposition: Home or Self Care 01/05/2025 8:27 AM EST - 01/05/2025 11:59 PM EST Hospital Encounter [facility] Radiation Oncology [address] [place] [phone] Discharge Disposition: Home or Self Care 01/04/2025 8:57 AM EST - 01/04/2025 11:59 PM EST Hospital Encounter [facility] Radiation Oncology [address] [place] [phone] Discharge Disposition: Home or Self Care 01/03/2025 8:32 AM EST - 01/03/2025 11:59 PM EST Hospital Encounter [facility] Radiation Oncology [address] [place] [phone] Discharge Disposition: Home or Self Care 01/02/2025 8:47 AM EST - 01/02/2025 11:59 PM EST Hospital Encounter [facility] Radiation Oncology [address] [place] [phone] Discharge Disposition: Home or Self Care 01/01/2025 8:28 AM EST - 01/01/2025 11:59 PM EST Hospital Encounter [facility] Radiation Oncology [address] [place] [phone] Discharge Disposition: Home or Self Care 12/21/2024 8:35 AM EST - 12/21/2024 11:59 PM EST Hospital Encounter [facility] Radiation Oncology [address] [place] [phone] Discharge Disposition: Home or Self Care 12/20/2024 8:41 AM EST - 12/20/2024 11:59 PM EST Hospital Encounter [facility] Radiation Oncology [address] [place] [phone] Discharge Disposition: Home or Self Care 12/19/2024 8:52 AM EST - 12/19/2024 11:59 PM EST Hospital Encounter [facility] Radiation Oncology [address] [place] [phone] Discharge Disposition: Home or Self Care 12/18/2024 11:15 AM EST - 12/18/2024 11:59 PM EST Hospital Encounter [facility] Radiation Oncology [address] [place] [phone] Pari Martinez MD Discharge Disposition: Home or Self Care 12/18/2024 10:53 AM EST - 12/18/2024 11:59 PM EST Hospital Encounter [facility] Radiation Oncology [address] [place] [phone] Discharge Disposition: Home or Self Care 12/01/2024 11:09 AM EST - 12/01/2024 11:59 PM EST Hospital Encounter [facility] Radiation Oncology [address] [place] [phone] Discharge Disposition: Home or Self Care 12/01/2024 9:30 AM EST - 12/07/2024 4:56 PM EST Hospital Encounter [facility] Intermediate Care Unit [address] [place] [phone] Josh Carranza MD Kela, MD Nery Garcia Yar M, MD Surendran, Anupama, MD COVID (Primary Dx); Peripheral edema Discharge Disposition: Home-Health Care [facility] 12/01/2024 Telephone [facility] Radiation Oncology [address] [place] [phone] Hyacinth Pinzon RN has covid 11/16/2024 10:00 AM EST - 11/16/2024 11:59 PM EST Hospital Encounter [facility] Radiation Oncology [address] [place] [phone] Radha Bourgeois MD Malignant neoplasm of right breast in female, estrogen receptor positive, unspecified site of breast (CMS/HCC) Discharge Disposition: Home or Self Care 11/16/2024 9:13 AM EST - 11/16/2024 11:59 PM EST Hospital Encounter [facility] Radiation Oncology [address] [place] [phone] Malignant neoplasm of upper-outer quadrant of right breast in female, estrogen receptor positive (CMS/HCC) (Primary Dx) Discharge Disposition: Home or Self Care 11/09/2024 12:49 PM EST - 11/09/2024 11:59 PM EST Hospital Encounter [facility] Radiation Oncology [address] [place] [phone] Radha Bourgeois MD Malignant neoplasm of upper-outer quadrant of right breast in female, estrogen receptor positive (CMS/HCC) (Primary Dx); Malignant neoplasm of right breast in female, estrogen receptor positive, unspecified site of breast ([facility]) Discharge Disposition: Home or Self Care 11/09/2024 12:36 PM EST - 11/09/2024 11:59 PM EST Hospital Encounter [facility] Radiation Oncology [address] [phone] Discharge Disposition: Home or Self Care 10/13/2024 Telephone [facility] Radiation Oncology [address] [phone] Elena Connelly MA from Last 3 Months Surgical History Surgery Date Site/Laterality Comments COLONOSCOPY BREAST LUMPECTOMY 09/20/2024 Right PARTIAL HYSTERECTOMY THYROIDECTOMY CYSTOSCOPY Medical History Medical History Date Comments Cancer ([facility]) Gout A-fib ([facility]) Thyroid cancer ([facility]) Sleep apnea Reflux esophagitis Family History Medical [...] Info) Description 01/15/2025 9:00 AM EST Appointment [facility] Radiation Oncology [address] [phone] 01/16/2025 9:00 AM EST Appointment [facility] Radiation Oncology [address] [phone] 01/16/2025 9:10 AM EST Appointment [facility] Radiation Oncology [address] [phone] Radha Bourgeois MD [address] [place] [address] Health Maintenance Due Date Last Done Comments Breast Cancer Screening 1960 DTaP,Tdap,and Td Vaccines (1 - Tdap) 1979 Pneumococcal Vaccine: 50+ Years (1 of 2 - PCV) 1979 Pneumococcal Vaccine: Pediatrics (0 to 5 Years) and At-Risk Patients (6 to 64 Years) (1 of 2 - PCV) 1979 Zoster Vaccines (1 of 2) 1979 [...] patient's age to complete this topic Meningococcal B Vacine Aged Out No lo nger eligible based on patient's age to complete this topic RSV Immunization Patients Under 20 months Aged Out No longer eligible based on patient's age to complete this topic Varicella Vaccines Aged Out No longer eligible based on patient's age to complete this topic Procedures Procedure Name Priority Date/Time Associated Diagnosis Comments RAD ONC MSQ TREATMENT SUMMARY Routine 01/12/2025 8:51 AM EST RAD ONC MSQ TREATMENT SUMMARY Routine 01/11/2025 2:38 PM EST RAD ONC MSQ TREATMENT SUMMARY Routine 01/10/2025 8:47 AM EST RAD ONC MSQ TREATMENT SUMMARY Routine 01/09/2025 8:48 AM EST RAD ONC MSQ TREATMENT SUMMARY Routine 01/08/2025 8:58 AM EST RAD ONC MSQ TREATMENT SUMMARY Routine 01/05/2025 8:46 AM EST RAD ONC MSQ TREATMENT SUMMARY Routine 01/04/2025 8:57 AM EST RAD ONC MSQ TREATMENT SUMMARY Routine 01/03/2025 [...] Results * Rad Onc Msq Treatment Summary (01/12/2025 8:51 AM EST) Treatment Site Right Breast MO SAIQ RADIATION ONCOLOGY Course Number 1 MOSAIQ RADIATION ONCOLOGY Prescribed Fractional Dose 267 cGray MOSAIQ RADIATION ONCOLOGY Prescribed Total Dose 4,272 cGray MOSAIQ RADIATION ONCOLOGY Actual Fractions Delivered 14 MOSAIQ RADIATION ONCOLOGY Prescription Pattern Comment no boost MOSAIQ RADIATION ONCOLOGY Actual Session Delivered Dose 267 cGray MOSAIQ RADIATION ONCOLOGY Actual Total Dose 3,738 cGray MOSAIQ RADIATION ONCOLOGY Prescribed Technique Tangents MOSAIQ RADIATION ONCOLOGY Elapsed Days 25 MOSAIQ RADIATION ONCOLOGY Start Date 12/18/2024 MOSAIQ RADIATION ONCOLOGY Last Date 01/12/2025 MOSAIQ RADIATION ONCOLOGY Prescribed Number of Fractions 16 MOSAIQ RADIATION ONCOLOGY 01/12/2025 8:51 AM EST Physician Radiation Oncology RADIATION ONCARMANDO GY ORDERABLES Final Result MOSAIQ RADIATION ONCOLOGY * Rad Onc Msq Treatment Summary (01/11/2025 2:38 PM EST) Treatment Site Right Breast MO SAIQ RADIATION ONCOLOGY Course Number 1 MOSAIQ RADIATION ONCOLOGY Prescribed Fractional Dose 267 cGray MOSAIQ RADIATION ONCOLOGY Prescribed Total Dose 4,272 cGray MOSAIQ RADIATION ONCOLOGY Actual Fractions Delivered 13 MOSAIQ RADIATION ONCOLOGY Prescription Pattern Comment no boost MOSAIQ RADIATION ONCOLOGY Actual Session Delivered Dose 267 cGray MOSAIQ RADIATION ONCOLOGY Actual Total Dose 3,471 cGray MOSAIQ RADIATION ONCOLOGY Prescribed Technique Tangents MOSAIQ RADIATION ONCOLOGY Elapsed Days 24 MOSAIQ RADIATION ONCOLOGY Start Date 12/18/2024 MOSAIQ RADIATION ONCOLOGY Last Date 01/11/2025 MOSAIQ RADIATION ONCOLOGY Prescribed Number of Fractions 16 MOSAIQ RADIATION ONCOLOGY 01/11/2025 2:38 PM EST Physician Radiation Oncology RADIATION ONCARMANDO GY ORDERABLES Final Result MOSAIQ RADIATION ONCOLOGY * Rad Onc Msq Treatment Summary (01/10/2025 [...] 01/10/2025 8:47 AM EST Physician Radiation Oncology RADIATION ONCARMANDO GY ORDERABLES Final Result MOSAIQ RADIATION ONCOLOGY * Rad Onc Msq Treatment Summary (01/09/2025 8:48 AM EST) Treatment Site Right Breast MO SAIQ RADIATION ONCOLOGY Course Number 1 MOSAIQ RADIATION ONCOLOGY Prescribed Fractional Dose 267 cGray MOSAIQ RADIATION ONCOLOGY Prescribed Total Dose 4,272 cGray MOSAIQ RADIATION ONCOLOGY Actual Fractions Delivered 11 MOSAIQ RADIATION ONCOLOGY Prescription Pattern Comment no boost MOSAIQ RADIATION ONCOLOGY Actual Session Delivered Dose 267 cGray MOSAIQ RADIATION ONCOLOGY Actual Total Dose 2,937 cGray MOSAIQ RADIATION ONCOLOGY Prescribed Technique Tangents MOSAIQ RADIATION ONCOLOGY Elapsed Days 22 MOSAIQ RADIATION ONCOLOGY Start Date 12/18/2024 MOSAIQ RADIATION ONCOLOGY Last Date 01/09/2025 MOSAIQ RADIATION ONCOLOGY Prescribed Number of Fractions 16 MOSAIQ RADIATION ONCOLOGY 01/09/2025 8:48 AM EST Physician Radiation Oncology RADIATION ONCARMANDO GY ORDERABLES Final Result MOSAIQ RADIATION ONCOLOGY * Rad Onc Msq Treatment Summary (01/08/2025 8:58 AM EST) Treatment Site Right Breast MO SAIQ RADIATION ONCOLOGY Course Number 1 MOSAIQ RADIATION ONCOLOGY Prescribed Fractional Dose 267 cGray MOSAIQ RADIATION ONCOLOGY Prescribed Total Dose 4,272 cGray MOSAIQ RADIATION ONCOLOGY Actual Fractions Delivered 10 MOSAIQ RADIATION ONCOLOGY Prescription Pattern Comment no boost MOSAIQ RADIATION ONCOLOGY Actual Session Delivered Dose 267 cGray MOSAIQ RADIATION ONCOLOGY Actual Total Dose 2,670 cGray MOSAIQ RADIATION ONCOLOGY Prescribed Technique Tangents MOSAIQ RADIATION ONCOLOGY Elapsed Days 21 MOSAIQ RADIATION ONCOLOGY Start Date 12/18/2024 MOSAIQ RADIATION ONCOLOGY Last Date 01/08/2025 MOSAIQ RADIATION ONCOLOGY Prescribed Number of Fractions 16 MOSAIQ RADIATION ONCOLOGY 01/08/2025 8:58 AM EST Physician Radiation Oncology RADIATION ONCARMANDO GY ORDERABLES Final Result MOSAIQ RADIATION ONCOLOGY * Rad Onc Msq Treatment Summary (01/05/2025 [...] 8:46 AM EST Physician Radiation Oncology RADIATION ONCARMANDO GY ORDERABLES Final Result Performing Organization Address City/[facility] Co de Phone Number MOSAIQ RADIATION ONCOLOGY * Rad Onc Msq Treatment Summary (01/04/2025 8:57 AM EST) Treatment Site Right Breast MO SAIQ RADIATION ONCOLOGY Course Number 1 MOSAIQ RADIATION ONCOLOGY Prescribed Fractional Dose 267 cGray MOSAIQ RADIATION ONCOLOGY Prescribed Total Dose 4,272 cGray MOSAIQ RADIATION ONCOLOGY Actual Fractions Delivered 8 MOSAIQ RADIATION ONCOLOGY Prescription Pattern Comment no boost MOSAIQ RADIATION ONCOLOGY Actual Session Delivered Dose 267 cGray MOSAIQ RADIATION ONCOLOGY Actual Total Dose 2,136 cGray MOSAIQ RADIATION ONCOLOGY Prescribed Technique Tangents MOSAIQ RADIATION ONCOLOGY Elapsed Days 17 MOSAIQ RADIATION ONCOLOGY Start Date 12/18/2024 MOSAIQ RADIATION ONCOLOGY Last Date 01/04/2025 MOSAIQ RADIATION ONCOLOGY Prescribed Number of Fractions 16 MOSAIQ RADIATION ONCOLOGY 01/04/2025 8:57 AM EST Physician Radiation Oncology RADIATION ONCOLO GY ORDERABLES Final Result MOSAIQ RADIATION ONCOLOGY * Rad Onc Msq Treatment Summary (01/03/2025 [...] 01/03/2025 8:45 AM EST Physician Radiation Oncology RADIATION ONCOLO GY ORDERABLES Final Result MOSAIQ RADIATION ONCOLOGY * Rad Onc Msq [...] 01/02/2025 9:02 AM EST Physician Radiation Oncology RADIATION ONCOLO GY ORDERABLES Final Result MOSAIQ RADIATION ONCOLOGY * Rad Onc Msq [...] 01/01/2025 8:48 AM EST Physician Radiation Oncology RADIATION ONCOLO GY ORDERABLES Final Result Performing Organization Address City/[facility]/ZIP Co de Phone Number MOSAIQ RADIATION [...] 12/21/2024 8:53 AM EST Physician Radiation Oncology RADIATION ONCARMANDO GY ORDERABLES Final Result MOSAIQ RADIATION ONCOLOGY * Rad Onc Msq [...] 8:56 AM EST Physician Radiation Oncology RADIATION ONCARMANDO GY ORDERABLES Final Result MOSAIQ RADIATION ONCOLOGY * Rad Onc Msq [...] 12/19/2024 9:10 AM EST Physician Radiation Oncology RADIATION ONCARMANDO GY ORDERABLES Final Result MOSAIQ RADIATION ONCOLOGY * Rad Onc Msq [...] GY ORDERABLES Final Result MOSAIQ RADIATION ONCOLOGY * (ABNORMAL) CBC auto differential (12/07/2024 6:02 AM EST) Only the most recent of7 resultswithin the time period is included. WBC 15.5(H) 4.8 - 10.8 K/mcL LAB HEMETOLOGY METHOD 12/07/2024 7:21 AM [facility] RBC 3.30(L) 3.80 - 4.80 M/mcL LAB HEMETOLOGY METHOD 12/07/2024 7:21 AM [facility] Hemoglobin 9.3(L) 11.5 - 16.0 g/dL LAB HEMETOLOGY METHOD 12/07/2024 7:21 AM [facility] Hematocrit 32.0(L) 35.0 - 47.0 % LAB HEMETOLOGY METHOD 12/07/2024 7:21 AM [facility] MCV 97.6 79.0 - 98.0 FL LAB HEMETOLOGY METHOD 12/07/2024 7:21 AM [facility] MCH 28.4 27.0 - 32.0 pcg LAB HEMETOLOGY METHOD 12/07/2024 7:21 AM [facility] MCHC 29.1(L) 32.0 - 37.0 g/dL LAB HEMETOLOGY METHOD 12/07/2024 7:21 AM [facility] RDW 18.9(H) 11.0 - 15.0 % LAB HEMETOLOGY METHOD 12/07/2024 7:21 AM [facility] Platelets 390 130 - 400 K/mcL LAB HEMETOLOGY METHOD 12/07/2024 7:21 AM [facility] MPV 10.0 7.0 - 11.0 FL LAB HEMETOLOGY METHOD 12/07/2024 7:21 AM [facility] NRBC 0.5 <1.0 % LAB HEMETOLOGY METHOD 12/07/2024 7:21 AM [facility] NRBC Absolute 0.07 <0.10 K/mcL LAB HEMETOLOGY METHOD 12/07/2024 7:21 AM [facility] Neutrophils Relative 74.5 % LAB HEMETOLOGY METHOD 12/07/2024 7:21 AM [facility] Lymphocytes Relative 13.6 % LAB HEMETOLOGY METHOD 12/07/2024 7:21 AM [facility] Monocytes Relative 7.6 % LAB HEMETOLOGY METHOD 12/07/2024 7:21 AM [facility] Eosinophils Relative 0.0 % LAB HEMETOLOGY METHOD 12/07/2024 7:21 AM [facility] Basophils Relative 0.4 % LAB HEMETOLOGY METHOD 12/07/2024 7:21 AM [facility] Immature Granulocytes Relative 3.9 % LAB HEMETOLOGY METHOD 12/07/2024 7:21 AM [facility] Neutrophils Absolute 11.53(H) 1.50 - 7.00 K/mcL LAB HEMETOLOGY METHOD 12/07/2024 7:21 AM [facility] Lymphocytes Absolute 2.10 1.00 - 5.00 K/mcL LAB HEMETOLOGY METHOD 12/07/2024 7:21 AM [facility] Monocytes Absolute 1.18(H) 0.20 - 1.00 K/mcL LAB HEMETOLOGY METHOD 12/07/2024 7:21 AM EST [facility] Eosinophils Absolute 0.00 0.00 - 0.50 K/mcL LAB HEMETOLOGY METHOD 12/07/2024 7:21 AM EST [facility] Basophils Absolute 0.06 0.00 - 0.20 K/mcL LAB HEMETOLOGY METHOD 12/07/2024 7:21 AM [facility] Immature Granulocytes Absolute 0.60(H) 0.00 - 0.03 K/[facility] LAB HEMETOLOGY METHOD 12/07/2024 7:21 AM [facility] Blood Venous blood specimen / Unknown Venipuncture / Unknown 12/07/2024 6:02 AM EST 12/07/2024 6:51 AM EST Milagro WEBBER LAB BLOOD ORDERABLES Final Result Performing Organization Address City/[facility]/ZIP Co de Phone Number [facility] [address] [place] [address], [place] [phone] * Folate (12/07/2024 6:02 AM EST) Folate 13.9 2.8 - 17.0 ng/ml LAB CHEMISTRY METHOD 12/07/2024 9:35 AM [facility] Blood Venous blood specimen / Unknown Venipuncture / Unknown 12/07/2024 6:02 AM EST 12/07/2024 6:49 AM EST Nuria Marie MD LAB BLOOD ORDERABLES Final Result [facility] [address] [place] [address], [place] [phone] * Vitamin B12 (12/07/2024 6:02 AM EST) Vitamin B-12 698 250 - 900 pcg/mL LAB CHEMISTRY METHOD 12/07/2024 9:59 AM [facility] Blood Venous blood specimen / Unknown Venipuncture / Unknown 12/07/2024 6:02 AM EST 12/07/2024 6:49 AM EST Nuria Marie MD LAB BLOOD ORDERABLES Final Result [facility] [address] [place] [address], [place] [phone] * (ABNORMAL) Basic metabolic panel (12/07/2024 6:02 AM EST) Only the most recent of7 resultswithin the time period is included. Sodium 139 133 - 145 mmol/L LAB CHEMISTRY METHOD 12/07/2024 7:57 AM [facility] Potassium 4.5 3.5 - 5.5 mmol/L LAB CHEMISTRY METHOD 12/07/2024 7:57 AM [facility] Chloride 96 96 - 110 mmol/L LAB CHEMISTRY METHOD 12/07/2024 7:57 AM [facility] CO2 38(H) 21 - 32 mmol/L LAB CHEMISTRY METHOD 12/07/2024 7:57 AM [facility] Anion Gap 5 3 - 11 LAB CHEMISTRY METHOD 12/07/2024 7:57 AM [facility] Glucose 153(H) 70 - 100 mg/dL LAB CHEMISTRY METHOD 12/07/2024 7:57 AM [facility] BUN 31(H) 5 - 25 mg/dL LAB CHEMISTRY METHOD 12/07/2024 7:57 AM [facility] Creatinine 1.22(H) 0.50 - 1.10 mg/dL LAB CHEMISTRY METHOD 12/07/2024 7:57 AM [facility] eGFR 50(L) >=60 mL/min/1. 73m2 LAB CHEMISTRY METHOD 12/07/2024 7:57 AM [facility] Comment:Calculation based on the??Chronic Kidney Disease Epidemiology Collaboration (CKD-EPI) equation refit??without adjustment for race. BUN/Creatinine Ratio 25.4 LAB CHEMISTRY METHOD 12/07/2024 7:57 AM EST [facility] Calcium 8.7 8.5 - 10.5 mg/dL LAB CHEMISTRY METHOD 12/07/2024 7:57 AM EST [facility] Blood Venous blood specimen / Unknown Venipuncture / Unknown 12/07/2024 6:02 AM EST 12/07/2024 6:49 AM EST us Milagro WEBBER LAB BLOOD ORDERABLES Final Result [facility] [address] [place] [address], [place] [phone] * TRANSTHORACIC ECHOCARDIOGRAM (TTE) COMPLETE W/ CONTRAST (12/05/2024 11:01 AM EST) Left Atrium Minor Greer 5.6 cm CV PACS Left Atrium Major Greer 5.5 cm CV PACS LA Area Sys [...] Definity contrast was given to enhance imaging. us Giovana WEBBER CV ECHO PROCEDURES Final Resu lt * Magnesium (12/05/2024 6:19 AM EST) Only the most recent of2 resultswithin the time period is included. Magnesium 1.9 1.9 - 2.6 mg/dL LAB CHEMISTRY METHOD 12/05/2024 7:40 AM EST [facility] ([facility]) [facility] Blood Venous blood specimen / Unknown Venipuncture / Unknown 12/05/2024 6:19 AM EST 12/05/2024 6:59 AM EST us Milagro WEBBER LAB BLOOD ORDERABLES Final Result [facility] [address] [place] [address], * XR Chest 1 View (12/03/2024 7:33 PM EST) Anatomical Region Laterality Modality Body Radiographic Dahiana ging 12/04/2024 9:28 AM EST Impressions 12/04/2024 9:32 AM EST Impression: 1. Stable right hemidiaphragmatic elevation since 2019. 2. Lungs grossly clear. Telerad AKBAR ([id number]) -------- FINAL REPORT -------- Dictated By: Keiko Dyson Dictated Date: 12/04/2024 09:28 ET Assigned Physician: Keiko Dyson Reviewed and Electronically Signed By: Keiko Dyson Signed Date: 12/04/2024 09:32 ET Workstation ID: [id number] Transcribed By: Self Edit Transcribed Date: 12/04/2024 [...] 2019. 2. Lungs grossly clear. Telelula WEBBER ([id number]) -------- FINAL REPORT -------- Dictated By: Keiko Dyson Dictated Date: 12/04/2024 09:28 ET Assigned Physician: Keiko Dyson Reviewed and Electronically Signed By: Keiko Dyson Signed Date: 12/04/2024 09:32 ET Workstation ID: [id number] Transcribed By: Self Edit Transcribed Date: 12/04/2024 09:28 ET Angelic WEBBER IMG XR PROCEDURES Final Result * ECG 12 lead (12/03/2024 7:00 PM EST) Only the most recent of2 resultswithin the time period is included. Ventricular Rate ECG 101 BPM GEMUSE Atrial Rate 125 BPM GEMUSE QRS Duration 142 ms GEMUSE Q-T Interval 390 ms GEMUSE QTc 505 ms GEMUSE R Greer 79 degrees GEMUSE T Greer 33 degrees GEMUSE ECG Interpretation Atrial fibrillation with rapid ventricular response Right bundle branch block Abnormal ECG When compared with ECG of 01-DEC-2024 09:55, No significant change was found Confirmed by FLORENTIN VANEGAS ([id number]) on 12/04/2024 4:35:43 PM GEMUSE 12/03/2024 7:00 PM EST 12/04/2024 4:35 PM EST Raheel WEBBER ECG ORDERABLES Final Res ult GEMUSE * Procalcitonin (12/02/2024 9:18 AM EST) Procalcitonin 0.08 <=0.16 ng/mL LAB CHEMISTRY METHOD 12/02/2024 10:29 AM EST RAYMUNDO REINOSO [place] ([facility]) [facility] Blood Venous blood specimen / Unknown Venipuncture / Unknown 12/02/2024 9:18 AM EST 12/02/2024 9:45 AM EST Narrative [facility] - 12/02/2024 10:29 AM EST [...] any concentrations <2.0 ng/mL are obtained. Raheel Richards [place] LAB BLOOD ORDERABLES Sandee l Result Performing Organization Address City/[facility]/ZIP Co de Phone Number [facility] [address] [place] [address], * Thyroid stimulating hormone (12/02/2024 9:18 AM EST) [facility] Signature TSH 1.95 0.40 - 4.00 mcIU/mL LAB CHEMISTRY METHOD 12/02/2024 11:45 AM EST [facility] Blood Venous blood specimen / Unknown Venipuncture / Unknown 12/02/2024 9:18 AM EST 12/02/2024 9:44 AM EST Raheel DurantJeanineMary [facility] LAB BLOOD ORDERABLES Sandee l Result Performing Organization Address [facility]/ZIP Co de Phone Number [facility] [address] [place] [address], [place] [phone] * Lactate (12/02/2024 9:18 AM EST) Only the most recent of2 resultswithin the time period is included. Lactate 1.4 0.4 - 2.0 mmol/L LAB CHEMISTRY METHOD 12/02/2024 10:08 AM [facility] Blood Venous blood specimen / Unknown Venipuncture / Unknown 12/02/2024 9:18 AM EST 12/02/2024 9:45 AM EST Raheel WEBBER LAB BLOOD ORDERABLES Sandee l Result Performing Organization Address City/[facility]/ZIP Co de Phone Number [facility] [address] [place] [address], [place] [phone] * Culture blood (12/01/2024 4:05 PM EST) Only the most recent of2 resultswithin the time period is included. Culture, Blood No growth at 5 days 12/06/2024 5:01 PM EST [facility] Blood Venous blood specimen / Unknown Venipuncture / Unknown 12/01/2024 4:05 PM EST 12/01/2024 4:13 PM EST Giovana WEBBER LAB MICROBIOLOGY - GENERAL OR DERABLES Final Result Performing Organization Address City/[facility]/ZIP Co de Phone Number [facility] [address] [place] [address], [place] [phone] * (ABNORMAL) Prothrombin time with INR (12/01/2024 2:57 PM EST) Protime 19.8(H) 10.6 - 13.9 sec LAB COAGULATION METHOD 12/01/2024 3:24 PM [facility] INR 1.6 LAB COAGULATION METHOD 12/01/2024 3:24 PM [facility] Blood Venous blood specimen / Unknown Venipuncture / Unknown 12/01/2024 2:57 PM EST 12/01/2024 3:02 PM EST Giovana WEBBER LAB BLOOD ORDERABLES Final Re sult Performing Organization Address [facility]/ZIP Co de Phone Number [facility] [address] [place] [address], [place] [phone] * (ABNORMAL) B-type natriuretic peptide (12/01/2024 2:57 PM EST) BNP 542(H) <=100 pcg/mL LAB CHEMISTRY METHOD 12/01/2024 3:42 PM EST [facility] Blood Venous blood specimen / Unknown Venipuncture / Unknown 12/01/2024 2:57 PM EST 12/01/2024 3:02 PM EST Giovana WEBBER LAB BLOOD ORDERABLES Final Re sult Performing Organization Address [facility] Co de Phone Number [facility] [address] [place] [address], [place] [phone] * CT Angio Chest wo and/or w [...] Signed Date: 12/01/2024 11:56 ET Workstation ID: [id number] Transcribed By: Self Edit Transcribed Date: 12/01/2024 [...] Signed Date: 12/01/2024 11:56 ET Workstation ID: [id number] Transcribed By: Self Edit Transcribed Date: 12/01/2024 11:53 ET Ailyn WEBBER IMG CT PROCEDURES Final Resul t * Troponin I high sensitivity (12/01/2024 10:12 AM EST) Pathologist [facility] High Sensitivity Troponin I 7 <=54 ng/L LAB CHEMISTRY METHOD 12/01/2024 11:03 AM EST [facility] Blood Venous blood specimen / Unknown Venipuncture / Unknown 12/01/2024 10:12 AM EST 12/01/2024 10:30 AM EST Narrative [facility] - 12/01/2024 11:03 AM EST High levels of biotin in samples may falsely decrease hsTroponin values. ??Use caution when interpreting hsTroponin results in patients taking biotin who exhibit renal impairment (eGFR <60) or in patients taking more than 20 mg/day of biotin. Josh Carranza MD LAB BLOOD ORDERABLES Final Result [facility] [address] [place] [address], * Vitamin B12 and folate (12/01/2024 10:12 AM EST) Pathologist [facility] Vitamin B-12 468 250 - 900 pcg/mL LAB CHEMISTRY METHOD 12/01/2024 4:12 PM EST [facility] Folate 10.4 2.8 - 17.0 ng/ml LAB CHEMISTRY METHOD 12/01/2024 4:12 PM EST [facility] Blood Venous blood specimen / Unknown Venipuncture / Unknown 12/01/2024 10:12 AM EST 12/01/2024 10:30 AM EST us Giovana WEBBER LAB BLOOD ORDERABLES Final Re sult [facility] [address] [place] [address], [place] [phone] * (ABNORMAL) Manual differential (12/01/2024 10:12 AM EST) Neutrophils % 90.0 % LAB HEMETOLOGY METHOD 12/01/2024 11:16 AM [facility] Lymphocytes % 6.0 % LAB HEMETOLOGY METHOD 12/01/2024 11:16 AM [facility] Monocytes % 4.0 % LAB HEMETOLOGY METHOD 12/01/2024 11:16 AM [facility] Eosinophils % 0.0 % LAB HEMETOLOGY METHOD 12/01/2024 11:16 AM [facility] Basophils % 0.0 % LAB HEMETOLOGY METHOD 12/01/2024 11:16 AM [facility] Neutrophils Absolute Manual 20.70(H) 1.50 - 7.00 K/mcL LAB HEMETOLOGY METHOD 12/01/2024 11:16 AM [facility] Lymphocytes Absolute 1.38 1.00 - 5.00 K/mcL LAB HEMETOLOGY METHOD 12/01/2024 11:16 AM [facility] Monocytes Absolute Manual 0.92 0.20 - 1.00 K/mcL LAB HEMETOLOGY METHOD 12/01/2024 11:16 AM [facility] Eosinophils Absolute Manual 0.00 0.00 - 0.50 K/mcL LAB HEMETOLOGY METHOD 12/01/2024 11:16 AM [facility] Basophils Absolute Manual 0.00 0.00 - 0.20 K/mcL LAB HEMETOLOGY METHOD 12/01/2024 11:16 AM EST [facility] Rbc Morphology Present( A) Consistent with indices, Normal for LAB HEMETOLOGY METHOD 12/01/2024 11:16 AM EST [facility] Comment:RBC: Morphology agre es with CBC Platelet Morphology - WAM See Note(A) Normal LAB HEMETOLOGY METHOD 12/01/2024 11:16 AM EST [facility] Comment:PLT: Normal Polychromasia Present Present( A) (none) LAB HEMETOLOGY METHOD 12/01/2024 11:16 AM [facility] Blood Venous blood specimen / Unknown Venipuncture / Unknown 12/01/2024 10:12 AM EST 12/01/2024 10:30 AM EST us Ailyn WEBBER LAB BLOOD ORDERABLES Final Re sult Performing Organization Address City/[facility]/ZIP Co de Phone Number [facility] [address] [place] [address], [place] [phone] * (ABNORMAL) Iron and TIBC (12/01/2024 10:12 AM EST) Iron 19(L) 40 - 150 mcg/dL LAB CHEMISTRY METHOD 12/01/2024 2:49 PM EST [facility] TIBC 428 250 - 450 mcg/dL LAB CHEMISTRY METHOD 12/01/2024 2:49 PM EST [facility] Iron Saturation 4(L) 15 - 50 % LAB CHEMISTRY METHOD 12/01/2024 2:49 PM EST [facility] Blood Venous blood specimen / Unknown Venipuncture / Unknown 12/01/2024 10:12 AM EST 12/01/2024 10:30 AM EST Giovana WEBBER LAB BLOOD ORDERABLES Final Re sult [facility] [address] [place] [address], [place] [phone] * Ferritin (12/01/2024 10:12 AM EST) [facility] Ferritin 31 8 - 252 ng/mL LAB CHEMISTRY METHOD 12/01/2024 3:23 PM [facility] Blood Venous blood specimen / Unknown Venipuncture / Unknown 12/01/2024 10:12 AM EST 12/01/2024 10:30 AM EST us Giovana WEBBER LAB BLOOD ORDERABLES Final Re sult [facility] [address] [place] [address], [place] [phone] * Hepatic function panel (12/01/2024 10:12 AM EST) [facility] Total Protein 6.5 6.0 - 8.0 g/dL LAB CHEMISTRY METHOD 12/01/2024 2:37 PM [facility] Albumin 3.3 3.2 - 5.0 g/dL LAB CHEMISTRY METHOD 12/01/2024 2:37 PM [facility] Total Bilirubin 0.5 0.0 - 1.4 mg/dL LAB CHEMISTRY METHOD 12/01/2024 2:37 PM [facility] Bilirubin, Direct 0.1 0.0 - 0.3 mg/dL LAB CHEMISTRY METHOD 12/01/2024 2:37 PM [facility] Bilirubin, Indirect 0.4 0.0 - 1.1 mg/dL LAB CHEMISTRY METHOD 12/01/2024 2:37 PM [facility] ALT (SGPT) 21 10 - 60 unit/L LAB CHEMISTRY METHOD 12/01/2024 2:37 PM [facility] AST (SGOT) 12 10 - 42 unit/L LAB CHEMISTRY METHOD 12/01/2024 2:37 PM EST [facility] Alkaline Phosphatase 68 42 - 121 unit/L LAB CHEMISTRY METHOD 12/01/2024 2:37 PM [facility] Blood Venous blood specimen / Unknown Venipuncture / Unknown 12/01/2024 10:12 AM EST 12/01/2024 10:30 AM EST us Giovana WEBBER LAB BLOOD ORDERABLES Final Re sult [facility] [address] [place] [address], [place] [phone] * (ABNORMAL) Respiratory virus panel molecular study (12/01/2024 10:06 AM EST) Adenovirus Detection by PCR Not Detected Not Detected LAB MICROBIOLOGY METHOD 12/01/2024 11:43 AM [facility] Influenza A PCR Not Detected Not Detected LAB MICROBIOLOGY METHOD 12/01/2024 11:43 AM [facility] Influenza B PCR Not Detected Not Detected LAB MICROBIOLOGY METHOD 12/01/2024 11:43 AM [facility] Coronavirus 229E Not Detected Not Detected LAB MICROBIOLOGY METHOD 12/01/2024 11:43 AM [facility] Coronavirus HKU1 Not Detected Not Detected LAB MICROBIOLOGY METHOD 12/01/2024 11:43 AM [facility] Coronavirus OC43 Not Detected Not Detected LAB MICROBIOLOGY METHOD 12/01/2024 11:43 AM [facility] Coronavirus NL63 Not Detected Not Detected LAB MICROBIOLOGY METHOD 12/01/2024 11:43 AM [facility] Parainfluenza Virus 1 Not Detected Not Detected LAB MICROBIOLOGY METHOD 12/01/2024 11:43 AM [facility] Parainfluenza Virus 2 Not Detected Not Detected LAB MICROBIOLOGY METHOD 12/01/2024 11:43 AM [facility] Parainfluenza Virus 3 Not Detected Not Detected LAB MICROBIOLOGY METHOD 12/01/2024 11:43 AM [facility] Parainfluenza Virus 4 Not Detected Not Detected LAB MICROBIOLOGY METHOD 12/01/2024 11:43 AM [facility] RSV PCR Not Detected Not Detected LAB MICROBIOLOGY METHOD 12/01/2024 11:43 AM [facility] Human Metapneumovirus A and B Not Detected Not Detected LAB MICROBIOLOGY METHOD 12/01/2024 11:43 AM [facility] Rhinovirus/Entero virus Not Detected Not Detected LAB MICROBIOLOGY METHOD 12/01/2024 11:43 AM [facility] Bordetella pertussis Not Detected Not Detected LAB MICROBIOLOGY METHOD 12/01/2024 11:43 AM [facility] Bordetella parapertussis Not Detected Not Detected LAB MICROBIOLOGY METHOD 12/01/2024 11:43 AM [facility] Mycoplasma pneumo by PCR Not Detected Not Detected LAB MICROBIOLOGY METHOD 12/01/2024 11:43 AM [facility] Chlamydia pneumoniae Not Detected Not Detected LAB MICROBIOLOGY METHOD 12/01/2024 11:43 AM [facility] SARS COV-2 Detected(A ) Not Detected LAB MICROBIOLOGY METHOD 12/01/2024 11:43 AM [facility] Swab Both anterior nares / Unknown Non-blood Collection / Unknown 12/01/2024 10:06 AM EST 12/01/2024 10:[address] [facility] - 12/01/2024 11:43 AM EST Testing was performed using the [employer] Respiratory Pathogen PCR Assay. All results must [...] that are below the limit of detection. us Ailyn WEBBER LAB MICROBIOLOGY - GENERAL OR DERABLES Final Result [facility] [address] [place] [address], * ECG-Outside (12/01/2024) Only the most recent of2 resultswithin the time period is included. us Provider Onbase MD ECG ORDERABLES Final Result * ECG-Annotated (12/01/2024) us Provider Onbase MD ECG ORDERABLES Final Result from Last 3 Months Insurance [employer] Advance Directives * Full Code - Confirmed [...] currently active code status orders. Care Teams Supervisor Evaporator Relationship Specialty Start Date End Date Amita Ruiz MD [address] [place] [phone] PCP - General Internal Medicine 10/13/24
--- OUTSIDE RECORDS SUMMARY | 2025-01-12 10:32 | XMS_ITS | Encounter Summary ---
Author Organization [facility] Address [address] [place] [address] Care Team Providers Care Parts Person Name Role Phone Amita Ruiz MD Primary Care Provider [phone] Encounter Details Date Type Department Care Team (Late Contact Info) Description 01/12/2025 8:29 AM EST Hospital Encounter [facility] Radiation Oncology [address] [phone] Social History Tobacco Use Types Packs/Day Years [...] Info) Description 01/15/2025 9:[address] [facility] Radiation Oncology [address] [phone] 01/16/2025 9:[address] [facility] Radiation Oncology [address] [phone] 01/16/2025 9:[address] [facility] Radiation Oncology [address] [phone] Radha Bourgeois MD [address] [place] [address] documented as of this encounter Procedures Procedure Name Priority Date/Time Associated Diagnosis Comments RAD ONC MSQ TREATMENT SUMMARY Routine 01/12/2025 8:51 AM EST documented in this encounter Results [...] 8:51 AM EST Physician Radiation Oncology RADIATION ONCOLO GY ORDERABLES Final Result MOSAIQ RADIATION ONCOLOGY documented in this encounter Visit Diagnoses Not on filedocumented in this encounter Care Teams Parts Person Relationship Specialty Start Date End Date Amiat Ruiz MD [address] [place] [address] PCP - General Internal Medicine 10/13/24 documented as of this encounter
--- OUTSIDE RECORDS SUMMARY | 2025-01-12 10:32 | XMS_ITS | Encounter Summary ---
Author Organization [facility] Address [address] [place] [address] Care Team Providers Care Group Practice Pediatrician Name Role Phone Amita Ruiz MD Primary Care Provider [phone] Encounter Details Date Type Department Care Team (Latest Contact Info) Description 01/01/2025 8:28 AM EST - 01/01/2025 11:59 PM EST Hospital Encounter [facility] Radiation Oncology [address] [phone] Discharge Disposition: Home or [...] Info) Description 01/15/2025 9:00 AM EST Appointment [facility] Radiation Oncology [address] [place] [phone] 01/16/2025 9:00 AM EST Appointment [facility] Radiation Oncology [address] [place] [phone] 01/16/2025 9:10 AM EST Appointment [facility] Radiation Oncology [address] [place] [phone] Radha Bourgeois MD [address] [place] [address] documented as of this encounter Procedures Procedure [...] on filedocumented in this encounter Care Teams Group Practice Pediatrician Relationship Specialty Start Date End Date Amita Ruiz MD [address] [place] [address] PCP - General Internal Medicine 10/13/24 documented as of this encounter
--- OUTSIDE RECORDS SUMMARY | 2025-01-12 10:32 | XMS_ITS | Encounter Summary ---
Author Organization [facility] Address [address] [place] [address] Care Team Providers Care State Director Name Role Phone Amita Ruiz MD Primary Care Provider Encounter Details Date Type Department Care Team (Latest Contact Info) Description 12/19/2024 8:52 AM EST - 12/19/2024 11:59 PM EST Hospital Encounter [facility] Radiation Oncology [address] [phone] Discharge Disposition: Home or Self [...] Description 01/15/2025 9:00 AM EST Appointment [facility] Radiation Oncology [address] [place] [phone] 01/16/2025 9:00 AM EST Appointment [facility] Radiation Oncology [address] [place] [phone] 01/16/2025 9:10 AM EST Appointment [facility] Radiation Oncology [address] [place] [phone] Radha Bourgeois MD [address] [place] [address] documented as of this encounter Procedures Procedure [...] 9:10 AM EST Physician Radiation Oncology RADIATION ONCOLO GY ORDERABLES Final Result MOSAIQ RADIATION ONCOLOGY documented in this encounter Visit Diagnoses Not on filedocumented in this encounter Additional Health Concerns Infection Onset Date Last Indicated Resolved Time COVID-19 12/01/2024 12/01/2024 12/31/2024 7:04 PM EST documented as of this encounter Care Teams State Director Relationship Specialty Start Date End Date Amita Ruiz MD [address] [place] [phone] PCP - General Internal Medicine 10/13/24 documented as of this encounter
--- OUTSIDE RECORDS SUMMARY | 2025-01-12 10:32 | XMS_ITS | Encounter Summary ---
Author Organization [facility] Address [address] [place] [address] Care Team Providers Care Cigarette Stamper Name Role Phone Amita Ruiz MD Primary Care Provider [phone] Encounter Details Date Type Department Care Team (Late Contact Info) Description 01/09/2025 8:26 AM EST Hospital Encounter [facility] Radiation Oncology [address] [phone] Social History Tobacco Use Types Packs/Day Years [...] Info) Description 01/15/2025 9:00 AM EST Appointment [facility] Radiation Oncology [address] [phone] 01/16/2025 9:00 AM EST Appointment [facility] Radiation Oncology [address] [phone] 01/16/2025 9:10 AM EST Appointment [facility] Radiation Oncology [address] [phone] Radha Bourgeois MD [address] [place] [address] documented as of this encounter Procedures Procedure Name Priority Date/Time Associated Diagnosis Comments RAD ONC MSQ TREATMENT SUMMARY Routine 01/09/2025 8:48 AM EST documented in this encounter Results * Rad Onc Msq Treatment Summary (01/09/2025 [...] on filedocumented in this encounter Care Teams Cigarette Stamper Relationship Specialty Start Date End Date Amita Ruiz MD [address] [place] [address] PCP - General Internal Medicine 10/13/24 documented as of this encounter
--- OUTSIDE RECORDS SUMMARY | 2025-01-12 10:32 | XMS_ITS | Encounter Summary ---
Author Organization [facility] Address [address] [place] [address] Care Team Providers Care Fueler Name Role Phone Amita Ruiz MD Primary Care Provider Encounter Details Date Type Department Care Team (Latest Contact Info) Description 12/21/2024 8:35 AM EST - 12/21/2024 11:59 PM EST Hospital Encounter [facility] Radiation Oncology [address] [phone] Discharge Disposition: Home or Self [...] Description 01/15/2025 9:00 AM EST Appointment [facility] Radiation Oncology [address] [place] [phone] 01/16/2025 9:00 AM EST Appointment [facility] Radiation Oncology [address] [place] [phone] 01/16/2025 9:10 AM EST Appointment [facility] Radiation Oncology [address] [place] [phone] Radha Bourgeois MD [address] [place] [address] documented as of this encounter Procedures Procedure [...] 8:53 AM EST Physician Radiation Oncology RADIATION ONCOLO GY ORDERABLES Final Result MOSAIQ RADIATION ONCOLOGY documented in this encounter Visit Diagnoses Not on filedocumented in this encounter Additional Health Concerns Infection Onset Date Last Indicated Resolved Time COVID-19 12/01/2024 12/01/2024 12/31/2024 7:04 PM EST documented as of this encounter Care Teams Fueler Relationship Specialty Start Date End Date Amita Ruiz MD [address] [place] [address] PCP - General Internal Medicine 10/13/24 documented as of this encounter
--- OUTSIDE RECORDS SUMMARY | 2025-01-12 10:32 | XMS_ITS ---
Author Organization [facility] Address [address] [place] [phone] Care Team Providers Care Loss Control Engineer Name Role Phone Amita Ruiz MD Primary Care Provider UnavailArie Royal Jr [phone] REASON FOR VISIT pathology Encounters Encounter Location Date Provider Diagnosis [facility] [address] [place] [phone] 11/04/2023 Arie Last Jr PLAN OF TREATMENT No Information
--- OUTSIDE RECORDS SUMMARY | 2025-01-12 10:32 | XMS_ITS | Encounter Summary ---
Author Organization [facility] Address [address] [place] [address] Care Team Providers Care Security Compliance Engineer Name Role Phone Amita Ruiz MD Primary Care Provider [phone] Encounter Details Date Type Department Care Team (Latest Contact Info) Description 01/02/2025 8:47 AM EST - 01/02/2025 11:59 PM EST Hospital Encounter [facility] Radiation Oncology [address] [phone] Discharge Disposition: Home or [...] Info) Description 01/15/2025 9:00 AM EST Appointment [facility] Radiation Oncology [address] [place] [phone] 01/16/2025 9:00 AM EST Appointment [facility] Radiation Oncology [address] [place] [phone] 01/16/2025 9:10 AM EST Appointment [facility] Radiation Oncology [address] [place] [phone] Radha Bourgeois MD [address] [place] [address] documented as of this encounter Procedures Procedure [...] on filedocumented in this encounter Care Teams Security Compliance Engineer Relationship Specialty Start Date End Date Amita Ruiz MD [address] [place] [phone] PCP - General Internal Medicine 10/13/24 documented as of this encounter
--- OUTSIDE RECORDS SUMMARY | 2025-01-12 10:32 | XMS_ITS | Encounter Summary ---
Author Organization [facility] Address [address] [place] [address] Care Team Providers Care Mems Process Engineer Name Role Phone Amita Ruiz MD Primary Care Provider [phone] Encounter Details Date Type Department Care Team (Late Contact Info) Description 01/11/2025 2:03 PM EST Hospital Encounter [facility] Radiation Oncology [address] [phone] Social History Tobacco Use Types Packs/Day Years [...] [facility] [address] [phone] 01/16/2025 9:00 AM EST Appointment [facility] Radiation Oncology [address] [phone] 01/16/2025 9:10 AM EST Appointment [facility] Radiation Oncology [address] [phone] Radha Bourgeois MD [address] [place] [phone] documented as of this encounter Procedures Procedure Name Priority Date/Time Associated Diagnosis Comments RAD ONC MSQ TREATMENT SUMMARY Routine 01/11/2025 2:38 PM EST documented in this encounter Results * Rad Onc Msq Treatment Summary (01/11/2025 [...] 2:38 PM EST Physician Radiation Oncology RADIATION ONCOLO GY ORDERABLES Final Result MOSAIQ RADIATION ONCOLOGY documented in this encounter Visit Diagnoses Not on filedocumented in this encounter Care Teams Mems Process Engineer Relationship Specialty Start Date End Date Amita Ruiz MD [address] [place] [phone] PCP - General Internal Medicine 10/13/24 documented as of this encounter
--- OUTSIDE RECORDS SUMMARY | 2025-01-12 10:32 | XMS_ITS | Encounter Summary ---
Author Organization [facility] Address [address] [place] [address] Care Team Providers Care Process Plant Operator Name Role Phone Amita Ruiz MD Primary Care Provider [phone] Encounter Details Date Type Department Care Team (Latest Contact Info) Description 12/18/2024 11:15 AM EST - 12/18/2024 11:59 PM [facility] Hospital Encounter [facility] Radiation Oncology [address] [phone] Pari Martinez MD [address] [place] [address] Discharge Disposition: Home or Self Care Social [...] Info) Description 01/15/2025 9:00 AM EST Appointment [facility] Radiation Oncology [address] [place] [phone] 01/16/2025 9:00 AM EST Appointment [facility] Radiation Oncology [address] [place] [phone] 01/16/2025 9:10 AM EST Appointment [facility] Radiation Oncology [address] [place] [phone] Radha Bourgeois MD [address] [place] [address] documented as of this encounter Visit Diagnoses Not on filedocumented in this encounter Additional Health Concerns Infection Onset Date Last Indicated Resolved Time COVID-19 12/01/2024 12/01/2024 12/31/2024 7:04 PM EST documented as of this encounter Care Teams Process Plant Operator Relationship Specialty Start Date End Date Amita Ruiz MD [address] [place] [phone] PCP - General Internal Medicine 10/13/24 documented as of this encounter
--- OUTSIDE RECORDS SUMMARY | 2025-01-12 10:32 | XMS_ITS | Encounter Summary ---
Author Organization [facility] Address [address] [place] [address] Care Team Providers Care Communication Assistant Name Role Phone Amita Ruiz MD Primary Care Provider [phone] Encounter Details Date Type Department Care Team (Latest Contact Info) Description 01/04/2025 8:57 AM EST - 01/04/2025 11:59 PM EST Hospital Encounter [facility] Radiation Oncology [address] [phone] Discharge Disposition: Home or Self [...] [facility] Radiation Oncology [address] [place] [phone] 01/16/2025 9:00 AM EST Appointment [facility] Radiation Oncology [address] [place] [phone] 01/16/2025 9:10 AM EST Appointment [facility] Radiation Oncology [address] [place] [phone] Radha Bourgeois MD [address] [place] [address] documented as of this encounter Visit Diagnoses Not on filedocumented in this encounter Care Teams Communication Assistant Relationship Specialty Start Date End Date Amita Ruiz MD [address] [place] [phone] PCP - General Internal Medicine 10/13/24 documented as of this encounter
--- OUTSIDE RECORDS SUMMARY | 2025-01-12 10:32 | XMS_ITS | Encounter Summary ---
Author Organization [facility] Address [address] [place] [address] Care Team Providers Care Derrick Car Operator Name Role Phone Amita Ruiz MD Primary Care Provider [phone] Encounter Details Date Type Department Care Team (Latest Contact Info) Description 01/08/2025 8:46 AM EST - 01/08/2025 11:59 PM EST Hospital Encounter [facility] Radiation Oncology [address] [phone] Discharge Disposition: Home or Self [...] Do not crush, chew, or split. letrozole (FEMARA) 2.5 mg tablet Take 1 [...] Info) Description 01/15/2025 9:00 AM EST Appointment [facility] Radiation Oncology [address] [place] [phone] 01/16/2025 9:00 AM EST Appointment [facility] Radiation Oncology [address] [place] [phone] 01/16/2025 9:10 AM EST Appointment [facility] Radiation Oncology [address] [place] [phone] Radha Bourgeois MD [address] [place] [phone] documented as of this encounter Procedures Procedure Name Priority Date/Time Associated Diagnosis Comments RAD ONC MSQ TREATMENT SUMMARY Routine 01/08/2025 8:58 AM EST documented in this encounter Results * Rad Onc Msq Treatment Summary (01/08/2025 [...] 8:58 AM EST Physician Radiation Oncology RADIATION ONCOLO GY ORDERABLES Final Result MOSAIQ RADIATION ONCOLOGY documented in this encounter Visit Diagnoses Not on filedocumented in this encounter Care Teams Derrick Car Operator Relationship Specialty Start Date End Date Amita Ruiz MD [address] [place] [phone] PCP - General Internal Medicine 10/13/24 documented as of this encounter
--- OUTSIDE RECORDS SUMMARY | 2025-01-12 10:32 | XMS_ITS | Encounter Summary ---
Author Organization [facility] Address [address] [place] [address] Care Team Providers Care Supervisor Mails Name Role Phone Amita Ruiz MD Primary Care Provider [phone] Encounter Details Date Type Department Care Team (Latest Contact Info) Description 01/03/2025 8:32 AM EST - 01/03/2025 11:59 PM EST Hospital Encounter [facility] Radiation Oncology [address] [phone] Discharge Disposition: Home or Self [...] Description 01/15/2025 9:[address] [facility] Radiation Oncology [address] [place] [phone] 01/16/2025 9:[address] [facility] Radiation Oncology [address] [place] [phone] 01/16/2025 9:[address] [facility] Radiation Oncology [address] [place] [phone] Radha Bourgeois MD [address] [place] [phone] documented as of this encounter Procedures Procedure Name Priority Date/Time Associated Diagnosis Comments RAD ONC MSQ TREATMENT SUMMARY Routine 01/04/2025 8:57 AM EST RAD ONC MSQ TREATMENT SUMMARY Routine 01/03/2025 8:45 AM EST documented in this encounter Results * Rad Onc Msq Treatment Summary (01/04/2025 [...] on filedocumented in this encounter Care Teams Supervisor Mails Relationship Specialty Start Date End Date Amita Ruiz MD [address] [place] [phone] PCP - General Internal Medicine 10/13/24 documented as of this encounter
[2025-01-12 13:57] LABS: Estimated Average Glucose 128 mg/dL; Hemoglobin A1C 110.6871 umol/L; Hemoglobin A1c % 6.1 % (<6.0); Total Hemoglobin (HGBA1C) 2553.5615 umol/L
[2025-01-12 14:03] LABS: Anion Gap 14 (12-20); Blood Urea Nitrogen 15 mg/dL (9-16); Calcium 9.4 mg/dL (8.4-10.2); Carbon Dioxide 32 mmol/L (22-29); Chloride 99 mmol/L (96-108); Estimated Glomerular Filt Rate > 60; Glucose Random 130 mg/dL (60-115); Iron 48 mcg/dL (30-160); Percent Iron Saturation 14 % (15-50); Potassium 4.2 mmol/L (3.3-5.1); Sodium 141 mmol/L (135-145); Total Iron Binding Capacity 352 mcg/dL (228-428); Unsaturated Iron Binding 304 ug/dL
[2025-01-12 14:22] LABS: Vitamin B12 475 pg/mL (200-900)
== END 2025-01-12 09:56 | disposition home or self-care (01) ==
LOC: HO.HMGCLDS 09:55
PROVIDERS: PCP Internal Medicine; Visit Provider Internal Medicine
DX: R73.9 Hyperglycemia, unspecified (principal); D64.9 Anemia, unspecified; I50.31 Acute diastolic (congestive) heart failure
CPT/HCPCS: 36415; 80048; 82607; 82746; 83036; 83540

== ENCOUNTER 2025-01-17 14:16 | Outpatient (AMB) | payer OTHER, SELFPAY ==
--- OUTSIDE RECORDS SUMMARY | 2025-01-17 14:27 | XMS_ITS ---
Author Organization [facility] Address [address] [place] [address] Care Team Providers Care Alterations Workroom Clerk Name Role Phone Amita Ruiz MD Primary Care Provider Arie Eduardo Jr REASON FOR VISIT Xarelto Encounters Encounter Location Date Provider Diagnosis [facility] [address] [place] [phone] 09/22/2023 Arie Last Jr PLAN OF TREATMENT No Information
--- OUTSIDE RECORDS SUMMARY | 2025-01-17 14:27 | XMS_ITS | Encounter Summary ---
Author Organization [facility] Address [address] [place] [address] Care Team Providers Care Staff Nurse Midwife Name Role Phone Amita Ruiz MD Primary Care Provider [phone] Encounter Details Date Type Department Care Team (Latest Contact Info) Description 12/18/2024 10:53 AM EST - 12/18/2024 11:59 PM EST Hospital Encounter [facility] Radiation Oncology [address] [phone] Discharge Disposition: Home or Self [...] Care Team (Late st Contact Info) Description 02/13/2025 11:30 AM EDT Appointment [facility] Radiation Oncology [address] [place] [address] [address] [place] [phone] Arabella King NP [address] [place] [phone] documented as of this encounter Procedures Procedure [...] documented as of this encounter Care Teams Staff Nurse Midwife Relationship Specialty Start Date End Date Amita Ruiz MD [address] [place] [phone] PCP - General Internal Medicine 10/13/24 documented as of this encounter
--- OUTSIDE RECORDS SUMMARY | 2025-01-17 14:27 | XMS_ITS | Encounter Summary ---
Author Organization [facility] Address [address] [place] [address] Care Team Providers Care Service Person Name Role Phone Amita Ruiz MD Primary Care Provider [phone] Encounter Details Date Type Department Care Team (Latest Contact Info) Description 01/08/2025 8:46 AM EST - 01/08/2025 11:59 PM EST Hospital Encounter [facility] Radiation Oncology [address] [phone] Discharge Disposition: Home or Self [...] Info) Description 02/13/2025 11:30 AM EDT Appointment [facility] Radiation Oncology [address] [phone] Arabella King NP [address] [place] [phone] documented as of this encounter Procedures [...] on filedocumented in this encounter Care Teams Service Person Relationship Specialty Start Date End Date Amita Ruiz MD [address] [place] [phone] PCP - General Internal Medicine 10/13/24 documented as of this encounter
--- OUTSIDE RECORDS SUMMARY | 2025-01-17 14:27 | XMS_ITS | Encounter Summary ---
Author Organization [facility] Address [address] [place] [address] Care Team Providers Care School Crossing Guard Supervisor Name Role Phone Amita Ruiz MD Primary Care Provider [phone] Encounter Details Date Type Department Care Team (Latest Contact Info) Description 01/04/2025 8:57 AM EST - 01/04/2025 11:59 PM EST Hospital Encounter [facility] Radiation Oncology [address] [phone] Discharge Disposition: Home or Self [...] Info) Description 02/13/2025 11:30 AM EDT Appointment [facility] Radiation Oncology [address] [phone] Arabella King NP [address] [place] [address] [facility] [place] [phone] documented as of this encounter Visit Diagnoses Not on filedocumented in this encounter Care Teams School Crossing Guard Supervisor Relationship Specialty Start Date End Date Amita Ruiz MD [address] [place] [phone] PCP - General Internal Medicine 10/13/24 documented as of this encounter
--- OUTSIDE RECORDS SUMMARY | 2025-01-17 14:27 | XMS_ITS | Encounter Summary ---
Author Organization [facility] Address [address] [place] [address] Care Team Providers Care Mental Retardation Nurse Name Role Phone Amita Ruiz MD Primary Care Provider [phone] Encounter Details Date Type Department Care Team (Latest Contact Info) Description 01/12/2025 8:29 AM EST - 01/12/2025 11:59 PM EST Hospital Encounter [facility] Radiation Oncology [address] [phone] Discharge Disposition: Home or Self [...] this encounter Medications at Time of Discharge alendronate (FOSAMAX) 70 mg tablet Take 1 tablet (70 mg total) by mouth every 7 (seven) days. Take in the morning with a full glass of water, on an empty stomach, and do not take anything else by mouth or lie down for the next 30 min. allopurinoL (ZYLOPRIM) 100 mg tablet Take 2 tablets (200 mg total) by mouth 1 (one) time each day. amiodarone (PACERONE) 200 mg tablet Take by mouth 1 (one) time each day. cholecalciferol (VITAMIN D-3) 50 mcg (2,000 unit) tablet Take 1 tablet (2,000 Units total) by mouth 1 (one) time each day. empagliflozin (Jardiance) 10 mg tablet Take 1 [...] (one) time each day before breakfast. omeprazole (PriLOSEC) [address] capsule Take [...] Info) Description 02/13/2025 11:30 AM EDT Appointment [facility] Radiation Oncology [address] [place] [phone] Arabella King NP [address] [place] [address] [place] [phone] documented as of this encounter Procedures [...] 01/12/2025 8:51 AM EST Physician Radiation Oncology MD RADIATION ONCOLO GY ORDERABLES Final Result MOSAIQ RADIATION ONCOLOGY documented in this encounter Visit Diagnoses Not on filedocumented in this encounter Care Teams Mental Retardation Nurse Relationship Specialty Start Date End Date Amita Ruiz MD [address] [place] [phone] PCP - General Internal Medicine 10/13/24 documented as of this encounter
--- OUTSIDE RECORDS SUMMARY | 2025-01-17 14:27 | XMS_ITS | Encounter Summary ---
Author Organization [facility] Address [address] [place] [address] Care Team Providers Care Corporate Technical Recruiter Name Role Phone Amita Ruiz MD Primary Care Provider [phone] Encounter Details Date Type Department Care Team (Latest Contact Info) Description 01/09/2025 8:26 AM EST - 01/09/2025 11:59 PM EST Hospital Encounter [facility] Radiation Oncology [address] [phone] Discharge Disposition: Home or [...] Info) Description 02/13/2025 11:30 AM EDT Appointment [facility] Radiation Oncology [address] [place] [phone] Arabella King NP [address] [place] [phone] documented as of this encounter Procedures [...] on filedocumented in this encounter Care Teams Corporate Technical Recruiter Relationship Specialty Start Date End Date Amita Ruiz MD [address] [place] [phone] PCP - General Internal Medicine 10/13/24 documented as of this encounter
--- OUTSIDE RECORDS SUMMARY | 2025-01-17 14:27 | XMS_ITS ---
Author Organization [facility] Address [address] [place] [phone] Care Team Providers Care Client Delivery Manager Name Role Phone Amita Ruiz MD Primary Care Provider UnavailArie Royal Jr [phone] REASON FOR VISIT pathology Encounters Encounter Location Date Provider Diagnosis [facility] [address] [place] [phone] 11/04/2023 Arie Last Jr PLAN OF TREATMENT No Information
--- OUTSIDE RECORDS SUMMARY | 2025-01-17 14:27 | XMS_ITS | Encounter Summary ---
Author Organization [facility] Address [address] [place] [address] Care Team Providers Care Concrete Mixing Truck Driver Name Role Phone Amita Ruiz MD Primary Care Provider [phone] Encounter Details Date Type Department Care Team (Latest Contact Info) Description 01/11/2025 2:03 PM EST - 01/11/2025 11:59 PM EST Hospital Encounter [facility] Radiation Oncology [address] [phone] Discharge Disposition: Home or Self [...] Info) Description 02/13/2025 11:30 AM EDT Appointment [facility] Radiation Oncology [address] [place] [phone] Arabella King NP [address] [place] [phone] documented as of this encounter Procedures [...] 01/11/2025 2:38 PM EST Physician Radiation Oncology MD RADIATION ONCOLO GY ORDERABLES Final Result MOSAIQ RADIATION ONCOLOGY documented in this encounter Visit Diagnoses Not on filedocumented in this encounter Care Teams Concrete Mixing Truck Driver Relationship Specialty Start Date End Date Amita Ruiz MD [address] [place] [phone] PCP - General Internal Medicine 10/13/24 documented as of this encounter
--- OUTSIDE RECORDS SUMMARY | 2025-01-17 14:27 | XMS_ITS | Encounter Summary ---
Author Organization [facility] Address [address] [place] [address] Care Team Providers Care Rod Buster Name Role Phone Amita Ruiz MD Primary Care Provider [phone] Encounter Details Date Type Department Care Team (Late Contact Info) Description 01/16/2025 8:24 AM EST Hospital Encounter [facility] Radiation Oncology [address] [phone] Social History Tobacco Use Types Packs/Day Years [...] Department Care Team (Late Contact Info) Description 02/13/2025 11:30 AM EDT Appointment [facility] Radiation Oncology [address] [phone] Arabella King NP [address] [place] [address] [address] [place] [phone] documented as of this encounter Procedures Procedure Name Priority Date/Time Associated Diagnosis Comments RAD ONC MSQ TREATMENT SUMMARY Routine 01/16/2025 8:56 AM EST documented in this encounter Results * Rad Onc Msq Treatment Summary (01/16/2025 8:56 AM EST) Treatment Site Right Breast MO SAIQ RADIATION ONCOLOGY Course Number 1 MOSAIQ RADIATION ONCOLOGY Prescribed Fractional Dose 267 cGray MOSAIQ RADIATION ONCOLOGY Prescribed Total Dose 4,272 cGray MOSAIQ RADIATION ONCOLOGY Actual Fractions Delivered 16 MOSAIQ RADIATION ONCOLOGY Prescription Pattern Comment no boost MOSAIQ RADIATION ONCOLOGY Actual Session Delivered Dose 267 cGray MOSAIQ RADIATION ONCOLOGY Actual Total Dose 4,272 cGray MOSAIQ RADIATION ONCOLOGY Prescribed Technique Tangents MOSAIQ RADIATION ONCOLOGY Elapsed Days 29 MOSAIQ RADIATION ONCOLOGY Start Date 12/18/2024 MOSAIQ RADIATION ONCOLOGY Last Date 01/16/2025 MOSAIQ RADIATION ONCOLOGY Prescribed Number of Fractions 16 MOSAIQ RADIATION ONCOLOGY 01/16/2025 8:56 AM EST Physician Radiation Oncology RADIATION ONCOLO GY ORDERABLES Final Result MOSAIQ RADIATION ONCOLOGY documented in this encounter Visit Diagnoses Not on filedocumented in this encounter Care Teams Rod Buster Relationship Specialty Start Date End Date Amita Ruiz MD [address] [place] [phone] PCP - General Internal Medicine 10/13/24 documented as of this encounter
--- OUTSIDE RECORDS SUMMARY | 2025-01-17 14:27 | XMS_ITS | Encounter Summary ---
Author Organization [facility] Address [address] [place] [address] Care Team Providers Care Electro Mechanic Name Role Phone Amita Ruiz MD Primary Care Provider [phone] Encounter Details Date Type Department Care Team (Latest Contact Info) Description 01/05/2025 8:27 AM EST - 01/05/2025 11:59 PM EST Hospital Encounter [facility] Radiation Oncology [address] [phone] Discharge Disposition: Home or Self [...] Info) Description 02/13/2025 11:30 AM EDT Appointment [facility] Radiation Oncology [address] [place] [phone] Arabella King NP [address] [place] [address] [address] [place] [phone] documented as of this encounter Procedures [...] on filedocumented in this encounter Care Teams Electro Mechanic Relationship Specialty Start Date End Date Amita Ruiz MD [address] [place] [phone] PCP - General Internal Medicine 10/13/24 documented as of this encounter
--- OUTSIDE RECORDS SUMMARY | 2025-01-17 14:27 | XMS_ITS | Encounter Summary ---
Author Organization [facility] Address [address] [place] [address] Care Team Providers Care Director Of Head Start Name Role Phone Amita Ruiz MD Primary Care Provider Encounter Details Date Type Department Care Team (Late Contact Info) Description 01/15/2025 8:25 AM EST Hospital Encounter [facility] Radiation Oncology [address] [phone] Social History Tobacco Use Types Packs/Day Years [...] Info) Description 02/13/2025 11:30 AM EDT Appointment [facility] Radiation Oncology [address] [phone] Arabella King NP [address] [place] [address] [address] [place] [phone] documented as of this encounter Procedures Procedure Name Priority Date/Time Associated Diagnosis Comments RAD ONC MSQ TREATMENT SUMMARY Routine 01/15/2025 8:49 AM EST documented in this encounter Results * Rad Onc Msq Treatment Summary (01/15/2025 8:49 AM EST) Treatment Site Right Breast MO SAIQ RADIATION ONCOLOGY Course Number 1 MOSAIQ RADIATION ONCOLOGY Prescribed Fractional Dose 267 cGray MOSAIQ RADIATION ONCOLOGY Prescribed Total Dose 4,272 cGray MOSAIQ RADIATION ONCOLOGY Actual Fractions Delivered 15 MOSAIQ RADIATION ONCOLOGY Prescription Pattern Comment no boost MOSAIQ RADIATION ONCOLOGY Actual Session Delivered Dose 267 cGray MOSAIQ RADIATION ONCOLOGY Actual Total Dose 4,005 cGray MOSAIQ RADIATION ONCOLOGY Prescribed Technique Tangents MOSAIQ RADIATION ONCOLOGY Elapsed Days 28 MOSAIQ RADIATION ONCOLOGY Start Date 12/18/2024 MOSAIQ RADIATION ONCOLOGY Last Date 01/15/2025 MOSAIQ RADIATION ONCOLOGY Prescribed Number of Fractions 16 MOSAIQ RADIATION ONCOLOGY 01/15/2025 8:49 AM EST Physician Radiation Oncology RADIATION ONCOLO GY ORDERABLES Final Result MOSAIQ RADIATION ONCOLOGY documented in this encounter Visit Diagnoses Not on filedocumented in this encounter Care Teams Director Of Head Start Relationship Specialty Start Date End Date Amita Ruiz MD [address] [place] [phone] PCP - General Internal Medicine 10/13/24 documented as of this encounter
--- OUTSIDE RECORDS SUMMARY | 2025-01-17 14:27 | XMS_ITS | Encounter Summary ---
Author Organization [facility] Address [address] [place] [address] Care Team Providers Care Nuclear Engineering Technician Name Role Phone Amita Ruiz MD Primary Care Provider [phone] Reason for Visit * Reason Comments OTV Encounter Details Date Type Department Care Team (Latest Contact Info) Description 01/05/2025 8:46 AM EST - 01/05/2025 11:59 PM EST Hospital Encounter [facility] Radiation Oncology [address] [phone] Radha Bourgeois MD [address] [place] [address] Malignant neoplasm of upper-outer quadrant of right [...] Bourgeois MD - 01/05/2025 9:10 AM EST [address] [phone] Radiation Oncology On Treatment Visit Patient Name: [...] Stage IA (pT1c, pN0, cM0, G1, ER+, AR+, HER2-) - Signed by Radha Bourgeois MD on 11/09/2024 Diagnosis: Right breast (UOQ) invasive ductal carcinoma, ER/AR positive, Her2 negative 09/20/24 --right breast Lumpectomy with Dr. Crenshaw. Low Oncotype per pt Oct 2024 - started Letrozole Interval/Dose History: 3D RUBBER WORKER: Right Breast Treatment Period Technique Fraction Dose [...] had treatment break due to admission at [facility] due to leg swelling. Mild fungal [...] [facility] Radiation Oncology [address] [place] [phone] Arabella King NP [address] [place] [address] [facility] [place] [phone] documented as of this encounter Visit Diagnoses [...] day. added in this encounter Care Teams Nuclear Engineering Technician Relationship Specialty Start Date End Date Amita Ruiz MD [address] [place] [phone] PCP - General Internal Medicine 10/13/24 documented as of this encounter
--- OUTSIDE RECORDS SUMMARY | 2025-01-17 14:27 | XMS_ITS | Encounter Summary ---
Author Organization [facility] Address [address] [place] [address] Care Team Providers Care Performance Specialist Name Role Phone Amita Ruiz MD Primary Care Provider [phone] Encounter Details Date Type Department Care Team (Latest Contact Info) Description 01/10/2025 8:36 AM EST - 01/10/2025 11:59 PM EST Hospital Encounter [facility] Radiation Oncology [address] [phone] Discharge Disposition: Home or Self [...] Description 02/13/2025 11:30 AM EDT Appointment [facility] Radiation Oncology [address] [phone] Arabella King NP [address] [place] [phone] documented as of this encounter Procedures [...] 8:47 AM EST Physician Radiation Oncology RADIATION ONCOLO GY ORDERABLES Final Result MOSAIQ RADIATION ONCOLOGY documented in this encounter Visit Diagnoses Not on filedocumented in this encounter Care Teams Performance Specialist Relationship Specialty Start Date End Date Amita Ruiz MD [address] [place] [phone] PCP - General Internal Medicine 10/13/24 documented as of this encounter
--- OUTSIDE RECORDS SUMMARY | 2025-01-17 14:27 | XMS_ITS | Encounter Summary ---
Author Organization [facility] Address [address] [place] [address] Care Team Providers Care Trial Court Justice Name Role Phone Amita Ruiz MD Primary Care Provider [phone] Reason for Visit * Reason Comments OTV Encounter Details Date Type Department Care Team (Latest Contact Info) Description 01/12/2025 8:52 AM EST - 01/12/2025 11:59 PM EST Hospital Encounter [facility] Radiation Oncology [address] [phone] Radha Bourgeois MD [address] [place] [address] Malignant neoplasm of upper-outer quadrant of right [...] Bourgeois MD - 01/12/2025 9:10 AM EST [address] [phone] Radiation Oncology On Treatment Visit Patient Name: [...] Stage IA (pT1c, pN0, cM0, G1, ER+, NE+, HER2-) - Signed by Radha Bourgeois MD on 11/09/2024 Diagnosis: Right breast (UOQ) invasive ductal carcinoma, ER/NE positive, Her2 negative 09/20/24 --right breast Lumpectomy with Dr. Crenshaw. Low Oncotype per pt Oct 2024 - started Letrozole Interval/Dose History: 3D BALE STACKER: Right Breast Treatment Period Technique Fraction Dose [...] had treatment break due to admission at [facility] due to leg swelling. Mild fungal [...] Info) Description 02/13/2025 11:[address] [facility] Radiation Oncology [address] [place] [address] [address] [place] [address] Arabella King NP [address] [place] [phone] documented as of this encounter Visit Diagnoses [...] min. added in this encounter Care Teams Trial Court Justice Relationship Specialty Start Date End Date Amita Ruiz MD [address] [place] [address] PCP - General Internal Medicine 10/13/24 documented as of this encounter
--- OUTSIDE RECORDS SUMMARY | 2025-01-17 14:27 | XMS_ITS ---
Author Organization [facility] Address [address] [place] [address] Phone Care Team Providers Care Contracting Executive Name Role Phone Amita Ruiz MD Primary Care Provider [phone] Active Problems Problem Noted Date Diagnosed Date COVID-19 12/01/2024 Acute hypoxemic respiratory failure due to COVID -19 12/01/2024 Malignant neoplasm of upper- outer quadrant of right breast in female, estrogen receptor positive 11/09/2024 Cancer Staging:Pathologic:Stage IA(pT1c, pN0, cM0, G1, ER+, ND+, HER2-) - Signed by Radha Bourgeois MD [...] Dose Given/Prescribed Technique Right Breast 5 5 29 16 of 16 267 cGy / 267 cGy 4,272 cGy / 4, 272 cGy Tangents Resolved Problems Problem Noted Date Diagnosed Date Resolved Date Anemia 11/07/2024 11/07/2024
--- OUTSIDE RECORDS SUMMARY | 2025-01-17 14:28 | XMS_ITS | Clinical Summary ---
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 Depression with anxiety 11/07/2024 Arthritis 11/07/2024 A-fib 11/07/2024 Hypothyroidism Resolved Problems Problem Noted Date Diagnosed Date Resolved Date Anemia 11/07/2024 11/07/2024 Encounters Date Type Department Care Team Description 01/16/2025 8:56 AM EST Hospital Encounter [facility] Radiation Oncology [address] [place] [phone] Arabella King NP Malignant neoplasm of upper-outer quadrant of right breast in female, estrogen receptor positive (CMS/HCC) (Primary Dx) 01/16/2025 8:24 AM EST Hospital Encounter [facility] Radiation Oncology [address] [place] [phone] 01/15/2025 8:25 AM EST Hospital Encounter [facility] Radiation Oncology [address] [place] [phone] 01/12/2025 8:52 AM EST - 01/12/2025 11:59 PM EST Hospital Encounter [facility] Radiation Oncology [address] [place] [phone] Radha Bourgeois MD Malignant neoplasm of upper-outer quadrant of right breast in female, estrogen receptor positive (CMS/HCC) (Primary Dx) Discharge Disposition: Home or Self Care 01/12/2025 8:29 AM EST - 01/12/2025 11:59 PM EST Hospital Encounter [facility] Radiation Oncology [address] [place] [phone] Discharge Disposition: Home or Self Care 01/11/2025 2:03 PM EST - 01/11/2025 11:59 PM EST Hospital Encounter [facility] Radiation Oncology [address] [place] [phone] Discharge Disposition: Home or Self Care 01/10/2025 8:36 AM EST - 01/10/2025 11:59 PM EST Hospital Encounter [facility] Radiation Oncology [address] [place] [phone] Discharge Disposition: Home or Self Care 01/09/2025 8:26 AM EST - 01/09/2025 11:59 PM EST Hospital Encounter [facility] Radiation Oncology [address] [place] [phone] Discharge Disposition: Home or Self Care 01/08/2025 8:46 AM EST - 01/08/2025 11:59 PM EST Hospital Encounter [facility] Radiation Oncology [address] [place] [phone] Discharge Disposition: Home or Self Care 01/05/2025 8:46 AM EST - 01/05/2025 11:59 PM EST Hospital Encounter [facility] Radiation Oncology [address] [place] [phone] Radha Bourgeois MD Malignant neoplasm of upper-outer quadrant of right breast in female, estrogen receptor positive (CMS/HCC) (Primary Dx) Discharge Disposition: Home or Self Care 01/05/2025 8:27 AM EST - 01/05/2025 11:59 PM EST Hospital Encounter [facility] Radiation Oncology [address] [place] [phone] Discharge Disposition: Home or Self Care 01/04/2025 8:57 AM EST - 01/04/2025 11:59 PM EST Hospital Encounter [facility] Radiation Oncology [address] [place] [phone] Discharge Disposition: Home or Self Care 01/03/2025 8:32 AM EST - 01/03/2025 11:59 PM EST Hospital Encounter [facility] Radiation Oncology [address] [place] [phone] Discharge Disposition: Home or Self Care 01/02/2025 8:47 AM EST - 01/02/2025 11:59 PM EST Hospital Encounter [facility] Radiation Oncology [address] [place] [phone] Discharge Disposition: Home or Self Care 01/01/2025 8:28 AM EST - 01/01/2025 11:59 PM EST Hospital Encounter [facility] Radiation Oncology [address] [place] [phone] Discharge Disposition: Home or Self Care 12/21/2024 8:35 AM EST - 12/21/2024 11:59 PM EST Hospital Encounter [facility] Radiation Oncology [address] [place] [phone] Discharge Disposition: Home or Self Care 12/20/2024 8:41 AM EST - 12/20/2024 11:59 PM EST Hospital Encounter [facility] Radiation Oncology [address] [place] [phone] Discharge Disposition: Home or Self Care 12/19/2024 8:52 AM EST - 12/19/2024 11:59 PM EST Hospital Encounter [facility] Radiation Oncology [address] [place] [phone] Discharge Disposition: Home or Self Care 12/18/2024 11:15 AM EST - 12/18/2024 11:59 PM EST Hospital Encounter [facility] Radiation Oncology [address] [place] [phone] Pari Martinez MD Discharge Disposition: Home or Self Care 12/18/2024 10:53 AM EST - 12/18/2024 11:59 PM EST Hospital Encounter [facility] Radiation Oncology [address] [place] [phone] Discharge Disposition: Home or Self Care 12/01/2024 11:09 AM EST - 12/01/2024 11:59 PM EST Hospital Encounter [facility] Radiation Oncology [address] [place] [phone] Discharge Disposition: Home or Self Care 12/01/2024 9:30 AM EST - 12/07/2024 4:56 PM EST Hospital Encounter [facility] Intermediate Care Unit [address] [place] [phone] Josh Carranza MD Kela, Kashyap Devendrabhai, MD Rasul, Yar M, MD Surendran, Anupama, MD COVID (Primary Dx); Peripheral edema Discharge Disposition: Home-Health Care Svc 12/01/2024 Telephone [facility] Radiation Oncology [address] [place] [phone] Hyacinth Pinzon RN has covid 11/16/2024 10:00 AM EST - 11/16/2024 11:59 PM EST Hospital Encounter [facility] Radiation Oncology [address] [place] [phone] Radha Bourgeois MD Malignant neoplasm of right breast in female, estrogen receptor positive, unspecified site of breast (CMS/HCC) Discharge Disposition: Home or Self Care 11/16/2024 9:13 AM EST - 11/16/2024 11:59 PM EST Hospital Encounter [facility] Radiation Oncology [address] [place] [phone] Malignant neoplasm of upper-outer quadrant of right breast in female, estrogen receptor positive (CMS/HCC) (Primary Dx) Discharge Disposition: Home or Self Care 11/09/2024 12:49 PM EST - 11/09/2024 11:59 PM EST Hospital Encounter [facility] Radiation Oncology [address] [place] [phone] Radha Bourgeois MD Malignant neoplasm of upper-outer quadrant of right breast in female, estrogen receptor positive (CMS/HCC) (Primary Dx); Malignant neoplasm of right breast in female, estrogen receptor positive, unspecified site of breast (CMS/HCC) Discharge Disposition: Home or Self Care 11/09/2024 12:36 PM EST - 11/09/2024 11:59 PM EST Hospital Encounter [facility] Radiation Oncology [address] [place] [phone] Discharge Disposition: Home or Self Care from Last 3 Months Surgical History Surgery Date Site/Laterality Comments COLONOSCOPY BREAST LUMPECTOMY 09/20/2024 Right PARTIAL HYSTERECTOMY THYROIDECTOMY CYSTOSCOPY Medical History Medical History Date Comments Cancer (CMS/HCC) Gout A-fib (CMS/HCC) Thyroid cancer (CMS/HCC) Sleep apnea Reflux esophagitis Family History Medical [...] Info) Description 02/13/2025 11:30 AM EDT Appointment [facility] Radiation Oncology [address] [place] [phone] Arabella King NP [address] [place] [phone] Health Maintenance Due Date Last Done Comments [...] TREATMENT SUMMARY Routine 01/16/2025 8:56 AM EST RAD ONC MSQ TREATMENT SUMMARY Routine 01/15/2025 8:49 AM EST RAD ONC MSQ TREATMENT SUMMARY Routine 01/12/2025 [...] ONCOLOGY * Rad Onc Msq Treatment Summary (01/15/2025 [...] 8:49 AM EST Physician Radiation Oncology RADIATION ONCARMANDO GY ORDERABLES Final Result MOSAIQ RADIATION ONCOLOGY * Rad Onc Msq Treatment Summary (01/12/2025 [...] Oncology RADIATION ONCOLO GY ORDERABLES Final Result FRANSISCOIQ RADIATION ONCOLOGY * Rad Onc Msq Treatment [...] GY ORDERABLES Final Result Performing Organization Address City/[facility]/ZIP Co de Phone Number MOSAIQ RADIATION ONCOLOGY [...] 8:57 AM EST Physician Radiation Oncology RADIATION ONCARMANDO [...] 8:45 AM EST Physician Radiation Oncology RADIATION ONCARMANDO [...] 9:02 AM EST Physician Radiation Oncology RADIATION ONCARMANDO [...] of Fractions 16 MOSAIQ RADIATION ONCOLOGY 12/20/2024 8:5 6 AM EST Physician Radiation Oncology RADIATION ONCARMANDO [...] Treatment Summary (12/18/2024 11:20 AM EST) Pathologist [facility] Treatment Site Right Breast MO SAIQ RADIATION [...] GY ORDERABLES Final Result Performing Organization Address City/[facility] Co de Phone Number ELIDA RADIATION ONCOLOGY * (ABNORMAL) CBC auto differential (12/07/2024 6:02 AM EST) Only the most recent of7 resultswithin the time period is included. Pathologist [facility] WBC 15.5(H) 4.8 - 10.8 K/[facility] LAB HEMETOLOGY METHOD 12/07/2024 7:21 AM [facility] RBC 3.30(L) 3.80 - 4.80 M/[facility] LAB HEMETOLOGY METHOD 12/07/2024 7:21 AM [facility]AL [...] LAB Neutrophils Absolute 11.53(H) 1.50 - 7.00 K/[facility] LAB HEMETOLOGY METHOD 12/07/2024 7:21 AM [facility] Lymphocytes Absolute 2.10 1.00 - 5.00 K/mcL LAB HEMETOLOGY METHOD 12/07/2024 7:21 AM [facility] Monocytes Absolute 1.18(H) 0.20 - 1.00 K/mcL LAB HEMETOLOGY METHOD 12/07/2024 7:21 AM [facility] LAB Eosinophils Absolute 0.00 0.00 - 0.50 K/[facility] LAB HEMETOLOGY METHOD 12/07/2024 7:21 AM [facility] Basophils Absolute 0.06 0.00 - 0.20 K/mcL LAB HEMETOLOGY METHOD 12/07/2024 7:21 AM [facility] Immature Granulocytes Absolute 0.60(H) 0.00 - 0.03 K/[facility] LAB HEMETOLOGY METHOD 12/07/2024 7:21 AM [facility] Blood Venous blood specimen / Unknown Venipuncture / Unknown 12/07/2024 6:02 AM EST 12/07/2024 6:51 AM EST Milagro WEBBER LAB BLOOD ORDERABLES Final Result [facility] [address] [place] [address], * Folate (12/07/2024 6:02 AM EST) Folate 13.9 2.8 - 17.0 ng/ml LAB CHEMISTRY METHOD 12/07/2024 9:35 AM EST [facility] Blood Venous blood specimen / Unknown Venipuncture / Unknown 12/07/2024 6:02 AM EST 12/07/2024 6:49 AM EST us Nuria Marie MD LAB BLOOD ORDERABLES Final Result [facility] [address] [place] [address], [place] [phone] * Vitamin B12 (12/07/2024 6:02 AM EST) [facility] Vitamin B-12 698 250 - 900 pcg/mL LAB CHEMISTRY METHOD 12/07/2024 9:59 AM [facility] Blood Venous blood specimen / Unknown Venipuncture / Unknown 12/07/2024 6:02 AM EST 12/07/2024 6:49 AM EST us Nuria Marie MD LAB BLOOD ORDERABLES Final Result Performing Organization Address City/[facility]/ZIP Co de Phone Number [facility] [address] [place] [address], [place] [phone] * (ABNORMAL) Basic metabolic panel (12/07/2024 6:02 AM EST) Only the most recent of7 resultswithin the time period is included. [facility] Sodium 139 133 - 145 mmol/L [...] 7:57 AM [facility] Creatinine 1.22(H) 0.50 - 1.10 mg/dL LAB CHEMISTRY METHOD 12/07/2024 7:57 AM [facility] eGFR 50(L) >=60 mL/min/1. 73m2 LAB CHEMISTRY METHOD 12/07/2024 7:57 AM EST [facility] Comment:Calculation based on the??Chronic Kidney [...] Milagro WEBBER LAB BLOOD ORDERABLES Final Result [facility] [address] [place] [address], [place] [phone] * TRANSTHORACIC ECHOCARDIOGRAM (TTE) COMPLETE W/ CONTRAST (12/05/2024 11:01 AM EST) Left Atrium Minor [place] 5.6 cm CV PACS Left Atrium Major [place] 5.5 cm CV PACS LA Area Sys [...] LAB CHEMISTRY METHOD 12/05/2024 7:40 AM EST [facility] Blood Venous blood specimen / Unknown Venipuncture / Unknown 12/05/2024 6:19 AM EST 12/05/2024 6:59 AM EST us Milagro WEBBER LAB BLOOD ORDERABLES Final Result [facility] [address] [place] [address], * XR Chest 1 View (12/03/2024 7:33 PM EST) Anatomical Region Laterality Modality Body Radiographic Dahiana ging 12/04/2024 9:28 AM EST Impressions 12/04/2024 9:32 AM EST Impression: 1. Stable right hemidiaphragmatic elevation since 2019. 2. Lungs grossly clear. Telerad AKBAR ([id number]) -------- FINAL REPORT -------- Dictated By: Keiko Dyson Dictated Date: 12/04/2024 09:28 ET Assigned Physician: Keiko Dyson Reviewed and Electronically Signed By: Keiko Dyson Signed Date: 12/04/2024 09:32 ET Workstation ID: [id number] Transcribed By: Self Edit Transcribed Date: 12/04/2024 [...] 2019. 2. Lungs grossly clear. Cal WEBBER ([id number]) -------- FINAL REPORT -------- Dictated By: Keiko Dyson Dictated Date: 12/04/2024 09:28 ET Assigned Physician: Keiko Dyson Reviewed and Electronically Signed By: Keiko yDson Signed Date: 12/04/2024 09:32 ET Workstation ID: [id number] Transcribed By: Self Edit Transcribed Date: 12/04/2024 09:28 ET Angelic WEBBER IMG XR PROCEDURES Final Result * ECG 12 lead (12/03/2024 7:00 PM EST) Only the most recent of2 resultswithin the time period is included. Ventricular Rate ECG 101 BPM GEMUSE Atrial Rate 125 BPM GEMUSE QRS Duration 142 ms GEMUSE Q-T Interval 390 ms GEMUSE QTc 505 ms GEMUSE R [place] 79 degrees GEMUSE T [place] 33 degrees GEMUSE ECG Interpretation Atrial fibrillation with rapid ventricular response Right bundle branch block Abnormal ECG When compared with ECG of 01-DEC-2024 09:55, No significant change was found Confirmed by FLORENTIN VANEGAS ([id number]) on 12/04/2024 4:35:43 PM GEMUSE 12/03/2024 7:00 PM EST 12/04/2024 4:35 PM EST Raheel WEBBER ECG ORDERABLES Final Res ult Performing Organization Address [facility]/ZIP Co de Phone Number GEMUSE * Procalcitonin (12/02/2024 9:18 AM EST) Procalcitonin 0.08 <=0.16 ng/mL LAB CHEMISTRY METHOD 12/02/2024 10:29 AM EST [facility] Blood Venous blood specimen / Unknown Venipuncture / Unknown 12/02/2024 9:18 AM EST 12/02/2024 9:45 AM EST Narrative [facility] - 12/02/2024 10:29 AM EST [...] concentrations <2.0 ng/mL are obtained. Raheel Richards AR LAB BLOOD ORDERABLES Sandee l Result Performing Organization Address [facility] Co de Phone Number [facility] [address] [place] [address], * Thyroid stimulating hormone (12/02/2024 9:18 AM EST) TSH 1.95 0.40 - 4.00 mcIU/mL LAB CHEMISTRY METHOD 12/02/2024 11:45 AM EST [facility] Blood Venous blood specimen / Unknown Venipuncture / Unknown 12/02/2024 9:18 AM EST 12/02/2024 9:44 AM EST Raheel WEBBER LAB BLOOD ORDERABLES Sandee l Result Performing Organization Address City/[facility]/ZIP Co de Phone Number [facility] [address] [place] [address], [place] [phone] * Lactate (12/02/2024 9:18 AM EST) Only the most recent of2 resultswithin the time period is included. Lactate 1.4 0.4 - 2.0 mmol/L LAB CHEMISTRY METHOD 12/02/2024 10:08 AM EST [facility] Blood Venous blood specimen / Unknown Venipuncture / Unknown 12/02/2024 9:18 AM EST 12/02/2024 9:45 AM EST Raheel WEBBER LAB BLOOD ORDERABLES Sandee l Result Performing Organization Address [facility] Co de Phone Number [facility] [address] [place] [address], [place] [phone] * Culture blood (12/01/2024 4:05 PM EST) Only the most recent of2 resultswithin the time period is included. Culture, Blood No growth at 5 days 12/06/2024 5:01 PM EST [facility] Blood Venous blood specimen / Unknown Venipuncture / Unknown 12/01/2024 4:05 PM EST 12/01/2024 4:13 PM EST Giovana WEBBER LAB MICROBIOLOGY - GENERAL OR DERABLES Final Result Performing Organization Address City/[facility]/ZIP Co de Phone Number [facility] [address] [place] [address], [place] [phone] * (ABNORMAL) Prothrombin time with INR (12/01/2024 2:57 PM EST) Protime 19.8(H) 10.6 - 13.9 sec LAB COAGULATION METHOD 12/01/2024 3:24 PM EST [facility] INR 1.6 LAB COAGULATION METHOD 12/01/2024 3:24 PM EST [facility] Blood Venous blood specimen / Unknown Venipuncture / Unknown 12/01/2024 2:57 PM EST 12/01/2024 3:02 PM EST Giovana WEBBER LAB BLOOD ORDERABLES Final Re sult Performing Organization Address [facility]/ZIP Co de Phone Number [facility] [address] [place] [address], * (ABNORMAL) B-type natriuretic peptide (12/01/2024 2:57 PM EST) BNP 542(H) <=100 pcg/mL LAB CHEMISTRY METHOD 12/01/2024 3:42 PM EST [facility] Blood Venous blood specimen / Unknown Venipuncture / Unknown 12/01/2024 2:57 PM EST 12/01/2024 3:02 PM EST Giovana WEBBER LAB BLOOD ORDERABLES Final Re sult [facility] [address] [place] [address], [place] [phone] * CT Angio Chest wo and/or w [...] Signed Date: 12/01/2024 11:56 ET Workstation ID: [id number] Transcribed By: Self Edit Transcribed Date: 12/01/2024 [...] Signed Date: 12/01/2024 11:56 ET Workstation ID: [id number] Transcribed By: Self Edit Transcribed Date: 12/01/2024 11:53 ET us Ailyn WEBBER IMG CT PROCEDURES Final Resul t * Troponin I high sensitivity (12/01/2024 10:12 AM EST) High Sensitivity Troponin I 7 <=54 ng/L LAB CHEMISTRY METHOD 12/01/2024 11:03 AM EST [facility] Blood Venous blood specimen / Unknown Venipuncture / Unknown 12/01/2024 10:12 AM EST 12/01/2024 10:30 AM EST Narrative [facility] - 12/01/2024 11:03 AM EST High levels of biotin in samples may falsely decrease hsTroponin values. ??Use caution when interpreting hsTroponin results in patients taking biotin who exhibit renal impairment (eGFR <60) or in patients taking more than 20 mg/day of biotin. us Josh Carranza MD LAB BLOOD ORDERABLES Final Result [facility] [address] [place] [address], [place] [phone] * Vitamin B12 and folate (12/01/2024 10:12 AM EST) [facility] Vitamin B-12 468 250 - 900 pcg/mL LAB CHEMISTRY METHOD 12/01/2024 4:12 PM [facility] Folate 10.4 2.8 - 17.0 ng/ml LAB CHEMISTRY METHOD 12/01/2024 4:12 PM [facility] Blood Venous blood specimen / Unknown Venipuncture / Unknown 12/01/2024 10:12 AM EST 12/01/2024 10:30 AM EST us Giovana WEBBER LAB BLOOD ORDERABLES Final Re sult [facility] [address] [place] [address], * (ABNORMAL) Manual differential (12/01/2024 10:12 AM EST) [facility] Neutrophils % 90.0 % LAB HEMETOLOGY METHOD [...] LAB Lymphocytes Absolute 1.38 1.00 - 5.00 K/[facility] LAB HEMETOLOGY METHOD 12/01/2024 11:16 AM EST [facility] Monocytes Absolute Manual 0.92 0.20 - 1.00 K/[facility] LAB HEMETOLOGY METHOD 12/01/2024 11:16 AM [facility] Eosinophils Absolute Manual 0.00 0.00 - 0.50 K/[facility] LAB HEMETOLOGY METHOD 12/01/2024 11:16 AM [facility] Basophils Absolute Manual 0.00 0.00 - 0.20 K/[facility] LAB HEMETOLOGY METHOD 12/01/2024 11:16 AM [facility] Rbc Morphology Present( A) Consistent with indices, Normal for LAB HEMETOLOGY METHOD 12/01/2024 11:16 AM [facility] Comment:RBC: Morphology agre [...] WEBBER LAB BLOOD ORDERABLES Final Re sult [facility] [address] [place] [address], * (ABNORMAL) Iron and TIBC (12/01/2024 10:12 AM EST) Iron 19(L) 40 - 150 mcg/dL LAB CHEMISTRY METHOD 12/01/2024 2:49 PM EST [facility] TIBC 428 250 - 450 mcg/dL LAB CHEMISTRY METHOD 12/01/2024 2:49 PM EST [facility] Iron Saturation 4(L) 15 - 50 % LAB CHEMISTRY METHOD 12/01/2024 2:49 PM EST [facility] Blood Venous blood specimen / Unknown Venipuncture / Unknown 12/01/2024 10:12 AM EST 12/01/2024 10:30 AM EST Giovana WEBBER LAB BLOOD ORDERABLES Final Re sult Performing Organization Address City/[facility]/ZIP Co de Phone Number [facility] [address] [place] [address], [place] [phone] * Ferritin (12/01/2024 10:12 AM EST) Ferritin 31 8 - 252 ng/mL LAB CHEMISTRY METHOD 12/01/2024 3:23 PM [facility] Blood Venous blood specimen / Unknown Venipuncture / Unknown 12/01/2024 10:12 AM EST 12/01/2024 10:30 AM EST Giovana WEBBER LAB BLOOD ORDERABLES Final Re sult Performing Organization Address City/[facility]/ZIP Co de Phone Number [facility] [address] [place] [address], [place] [phone] * Hepatic function panel (12/01/2024 10:12 AM EST) Total Protein 6.5 6.0 - 8.0 g/dL LAB CHEMISTRY METHOD 12/01/2024 2:37 PM EST [facility] Albumin 3.3 3.2 - 5.0 g/dL LAB CHEMISTRY METHOD 12/01/2024 2:37 PM EST [facility] Total Bilirubin 0.5 0.0 - 1.4 mg/dL LAB CHEMISTRY METHOD 12/01/2024 2:37 PM EST [facility] Bilirubin, Direct 0.1 0.0 - 0.3 mg/dL LAB CHEMISTRY METHOD 12/01/2024 2:37 PM EST [facility] Bilirubin, Indirect 0.4 0.0 - [...] WEBBER LAB BLOOD ORDERABLES Final Re sult [facility] [address] [place] [address], * (ABNORMAL) Respiratory virus panel molecular study [...] 10:06 AM EST 12/01/2024 10:13 AM EST Narrative [facility] - 12/01/2024 11:43 AM EST Testing was performed using the [employer] Respiratory Pathogen PCR Assay. All results must [...] of detection. Ailyn WEBBER LAB MICROBIOLOGY - GENERAL OR DERABLES Final Result [facility] [address] [place] [address], * ECG-Outside (12/01/2024) Only the most recent of2 resultswithin the time period is included. us Provider Onbase MD ECG ORDERABLES Final Result * ECG-Annotated (12/01/2024) us Provider Onbase MD ECG ORDERABLES Final Result from Last 3 Months Insurance [facility] Advance Directives * Full Code - Confirmed [...] currently active code status orders. Care Teams Mine Administrator Supervisor Relationship Specialty Start Date End Date Amita Ruiz MD [address] [place] [phone] PCP - General Internal Medicine 10/13/24
--- OUTSIDE RECORDS SUMMARY | 2025-01-17 14:28 | XMS_ITS | Encounter Summary ---
Author Organization [facility] Address [address] [place] [address] Care Team Providers Care Autopsy Assistant Name Role Phone Amita Ruiz MD Primary Care Provider [phone] Encounter Details Date Type Department Care Team (Latest Contact Info) Description 01/16/2025 8:56 AM EST Hospital Encounter [facility] Radiation Oncology 271 [facility] 2nd [place] [address] Arabella King NP [address] [place] [phone] Malignant neoplasm of upper-outer quadrant of right [...] as of this encounter Progress Notes * Arabella King NP - 01/16/2025 9:10 AM EST Discharge Instructions after Radiation Treatments Side effects present at the end of treatment will usually improve in a few weeks. If you developed a skin reaction, it may continue to worsen for the next 7-10 days. Continue to be gentle with your skin. Your skin will be more sensitive to sunburn. Protect yourself from the sun. If needed, use sunscreen at least SPF 30. Fatigue and weakness may continue for several weeks. Be sure to get plenty of rest. Plan your activities accordingly. Continue healthy eating habits. Stay well hydrated, drink plenty of fluids. Follow-up visits will be scheduled so your Radiation physician can monitor your progress. Follow up in 4 - 6 weeks. Go to front line supervisor for follow up appointment. Please call [phone] and select option #2 with any questions or concerns prior to your next visit. documented in this encounter Plan of Treatment Upcoming Encounters Date Type Department Care Team (Late st Contact Info) Description 02/13/2025 11:30 AM EDT Appointment [facility] Radiation Oncology [address] [place] [phone] Arabella King NP [address] [place] [address] [place] [phone] documented as of this encounter Visit Diagnoses Diagnosis Malignant neoplasm of upper-outer quadrant of right breast in female, estrogen receptor positive (CMS/HCC)- Primary documented in this encounter Care Teams Autopsy Assistant Relationship Specialty Start Date End Date Amita Ruiz MD [address] [place] [phone] PCP - General Internal Medicine 10/13/24 documented as of this encounter
--- OUTSIDE RECORDS SUMMARY | 2025-01-17 14:28 | XMS_ITS | Encounter Summary ---
Author Organization Address [address] [place] [address] Care Team Providers Care Steeping Press Operator Name Role Phone Amita Ruiz MD Primary Care Provider [phone] Encounter Details Date Type Department Care Team (Latest Contact Info) Description 01/03/2025 8:32 AM EST - 01/03/2025 11:59 PM EST Hospital Encounter [facility] Radiation Oncology [address] [address] Discharge Disposition: Home or Self [...] Info) Description 02/13/2025 11:30 AM EDT Appointment [facility] Radiation Oncology [address] [place] [phone] Arabella King NP [address] [place] [address] [place] [phone] documented as of this encounter Procedures [...] on filedocumented in this encounter Care Teams Steeping Press Operator Relationship Specialty Start Date End Date Amita Ruiz MD [address] [place] [phone] PCP - General Internal Medicine 10/13/24 documented as of this encounter
--- OUTSIDE RECORDS SUMMARY | 2025-01-17 14:28 | XMS_ITS | Encounter Summary ---
Author Organization [facility] Address [address] [place] [address] Care Team Providers Care Product Marketer Name Role Phone Amita Ruiz MD Primary Care Provider [phone] Encounter Details Date Type Department Care Team (Latest Contact Info) Description 12/19/2024 8:52 AM EST - 12/19/2024 11:59 PM EST Hospital Encounter [facility] Radiation Oncology [address] [address] Discharge Disposition: Home or Self [...] Description 02/13/2025 11:30 AM EDT Appointment [facility] Radiation Oncology [address] [place] [address] [address] [place] [phone] Arabella King NP [address] [place] [phone] documented as of this encounter Procedures [...] documented as of this encounter Care Teams Product Marketer Relationship Specialty Start Date End Date Amita Ruiz MD [address] [place] [phone] PCP - General Internal Medicine 10/13/24 documented as of this encounter
--- OUTSIDE RECORDS SUMMARY | 2025-01-17 14:28 | XMS_ITS | Patient Health Record ---
Author Organization [facility] Address [address] [place] [address] Care Team Providers Care Sales Financial Analyst Name Role Phone Amita Ruiz MD [...] both constipation and diarrhea (K58.2) Active confirmed [id number] Problem Colon cancer screening (Z12.11) Active confirmed [id number] PLAN OF TREATMENT Future Test Test Name Order Date COLONOSCOPY 09/20/2023 Insurance Providers Payer Name Payer Address Payer Phone Subscriber Number Group Number Insured Name Patient Relationship to Insured Coverage Start Date Coverage End Date [employer] [address] [place] [address] [id number] TIFFANY SOUZA Self - patient is the insured MEDICAL (GENERAL) HISTORY Medical History History ICD Code Hypertension Papillary thyroid carcinoma Uterine fibroids Microscopic hematuria QAMAR/CPAP Osteoporosis Atrial fibrillation Surgical History Surgery Date(Month/Year) Thyroidectomy, lymph node exploration an d removal partial hysterectomy 2016 Hospitalization History Reason Date(Month/Year) Atrial fibrillation with rapid ventricul ar response 01/21
--- OUTSIDE RECORDS SUMMARY | 2025-01-17 14:28 | XMS_ITS | Encounter Summary ---
Author Organization [facility] Address [address] [place] [address] Care Team Providers Care Room Service Clerk Name Role Phone Amita Ruiz MD Primary Care Provider [phone] Encounter Details Date Type Department Care Team (Latest Contact Info) Description 12/21/2024 8:35 AM EST - 12/21/2024 11:59 PM EST Hospital Encounter [facility] Radiation Oncology [address] [phone] Discharge Disposition: Home or Self [...] Info) Description 02/13/2025 11:30 AM EDT Appointment [facility] Radiation Oncology [address] [place] [address] [address] [place] [phone] Arabella King NP [address] [place] [phone] documented as of this encounter Procedures [...] documented as of this encounter Care Teams Room Service Clerk Relationship Specialty Start Date End Date Amita Ruiz MD [address] [place] [phone] PCP - General Internal Medicine 10/13/24 documented as of this encounter
--- OUTSIDE RECORDS SUMMARY | 2025-01-17 14:28 | XMS_ITS | Encounter Summary ---
Author Organization [facility] Address [address] [place] [address] Care Team Providers Care Poultry Husbandry Worker Name Role Phone Amita Ruiz MD Primary Care Provider [phone] Encounter Details Date Type Department Care Team (Latest Contact Info) Description 12/18/2024 11:15 AM EST - 12/18/2024 11:59 PM [facility] Hospital Encounter [facility] Radiation Oncology [address] [phone] Pari Martinez MD [address] [place] [address] Discharge Disposition: Home or Self Care Social [...] Info) Description 02/13/2025 11:30 AM EDT Appointment [facility] Radiation Oncology 271 [facility] 2nd [place] [phone] Arabella King NP [address] [place] [address] [facility] [place] [phone] documented as of this encounter Visit Diagnoses Not on filedocumented in this encounter Additional Health Concerns Infection Onset Date Last Indicated Resolved Time COVID-19 12/01/2024 12/01/2024 12/31/2024 7:04 PM EST documented as of this encounter Care Teams Poultry Husbandry Worker Relationship Specialty Start Date End Date Amita Ruiz MD [address] [place] [phone] PCP - General Internal Medicine 10/13/24 documented as of this encounter
--- OUTSIDE RECORDS SUMMARY | 2025-01-17 14:28 | XMS_ITS | Encounter Summary ---
Author Organization [facility] Address [address] [place] [address] Care Team Providers Care Ecosystem Ecology Professor Name Role Phone Amita Ruiz MD Primary Care Provider [phone] Encounter Details Date Type Department Care Team (Latest Contact Info) Description 01/01/2025 8:28 AM EST - 01/01/2025 11:59 PM EST Hospital Encounter [facility] Radiation Oncology [address] [phone] Discharge Disposition: Home or Self [...] Info) Description 02/13/2025 11:30 AM EDT Appointment [facility] Radiation Oncology [address] [place] [phone] Arabella King NP [address] [place] [phone] documented as of this encounter Procedures [...] on filedocumented in this encounter Care Teams Ecosystem Ecology Professor Relationship Specialty Start Date End Date Amita Ruiz MD [address] [place] [phone] PCP - General Internal Medicine 10/13/24 documented as of this encounter
--- OUTSIDE RECORDS SUMMARY | 2025-01-17 14:28 | XMS_ITS ---
Author Organization [facility] Address [address] [place] [address] Care Team Providers Care Perforator Loader Name Role Phone Amita Ruiz MD Primary Care Provider UnavailArie Royal Jr [phone] REASON FOR VISIT screening Encounters Encounter Location Date Provider Diagnosis [facility] Outpatient [address] [place] [phone] 10/26/2023 Arie Last Jr Encounter for screening colonoscopy Z12.11 and Colon polyps K63.5 ASSESSMENTS Encounter Date Diagnosis Assessment Notes Treatment Notes Treatment Clinical Notes 10/26/2023 Encounter for screening colonoscopy (ICD-10 - Z12.11) 10/26/2023 Colon polyps (ICD-10 - K63.5) PLAN OF TREATMENT No Information
--- OUTSIDE RECORDS SUMMARY | 2025-01-17 14:28 | XMS_ITS | Encounter Summary ---
Author Organization [facility] Address [address] [place] [address] Care Team Providers Care Edge Sawyer Name Role Phone Amita Ruiz MD Primary Care Provider [phone] Encounter Details Date Type Department Care Team (Latest Contact Info) Description 12/20/2024 8:41 AM EST - 12/20/2024 11:59 PM EST Hospital Encounter [facility] Radiation Oncology [address] [phone] Discharge Disposition: Home or Self [...] Info) Description 02/13/2025 11:30 AM EDT Appointment [facility] Radiation Oncology [address] [place] [address] [address] [place] [phone] Arabella King NP [address] [place] [phone] documented as of this encounter Procedures [...] documented as of this encounter Care Teams Edge Sawyer Relationship Specialty Start Date End Date Amita Ruiz MD [address] [place] [phone] PCP - General Internal Medicine 10/13/24 documented as of this encounter
--- OUTSIDE RECORDS SUMMARY | 2025-01-17 14:28 | XMS_ITS | Encounter Summary ---
Author Organization [facility] Address [address] [place] [address] Care Team Providers Care Fire Extinguisher Repairer Inspector Name Role Phone Amita Ruiz MD Primary Care Provider [phone] Encounter Details Date Type Department Care Team (Latest Contact Info) Description 01/02/2025 8:47 AM EST - 01/02/2025 11:59 PM EST Hospital Encounter [facility] Radiation Oncology [address] [phone] Discharge Disposition: Home or Self [...] Info) Description 02/13/2025 11:30 AM EDT Appointment [facility] Radiation Oncology [address] [place] [address] [address] [place] [phone] Arabella King NP [address] [place] [phone] documented as of this encounter Procedures [...] on filedocumented in this encounter Care Teams Fire Extinguisher Repairer Inspector Relationship Specialty Start Date End Date Amita Ruiz MD [address] [place] [phone] PCP - General Internal Medicine 10/13/24 documented as of this encounter
[2025-01-17 14:39] VITALS: BP 146/50; PULSE 79; BMI 46.9
--- NOTE | 2025-01-17 14:39 | A.OFFVIS_ITS ---
Vital Signs 01/17/25 14:39 Height 5 ft 3 in Weight 264 lb 15.93 oz BMI 46.9 BP 146/50 H Blood Pressure Location Lt brachial Position Sitting Pulse 79 Intake Visit Reasons: r/s 01/16/25 1 month followup Intake Note: Bilateral leg edema. Right leg worse x 1 and 1/2 months. Strategy Analyst Required: No Accompanied by: Spouse Allergies erythromycin base Allergy (Intermediate, Verified 01/03/25 13:43) Abdominal Pain lisinopril Allergy (Intermediate, Verified 01/03/25 13:43) Rash Medication List - Last Reconciled 01/17/25 by Jeferson Sanchez NP alendronate 70 mg PO SA@0900 allopurinol 200 mg (2 x 100 mg) PO DAILY amiodarone 200 mg PO DAILY diltiazem HCl 30 mg See Protocol PO BID empagliflozin (Jardiance) 10 mg PO DAILY letrozole 2.5 mg PO DAILY levothyroxine 250 mcg PO LESLIE@0630 levothyroxine 125 mcg MOTUWETHFRSA metoprolol tartrate 100 mg PO BID omeprazole 20 mg PO DAILY@0630 PRN prednisone 20 mg PO DAILY rivaroxaban (Xarelto) 20 mg PO DAILY@1700 torsemide 20 mg PO DAILY walker Standard wheeled walker HPI Comments Details: This is a 64-year-old female patient with a medical history of paroxysmal AFib, hypertension, sleep apnea, and obesity. Her AFib has generally been well- controlled with amiodarone and metoprolol, with mostly sinus rhythm. She was previously admitted to [facility] for acute hypoxic respiratory failure secondary to COVID-19, during which she was found to be in AFib with RVR. Patient was discharged with oxygen therapy and was followed up in our office. At that visit, her Cardizem therapy was discontinued due to significant bradycardia and it was also noted that patient has still had leg swelling and her Lasix was increased from 40 mg daily to 40 mg twice daily, but with minimal response. The patient was subsequently admitted again at [facility] with worsening symptoms, where she was treated for congestive heart failure and AFib with RVR. She was treated with digoxin and her Lasix was switched to torsemide with some improvement. Patient states that during her hospital stay, she was also treated with prednisone for gout. For her recurrent AFib, a referral for EP consultation for ablation was made. She states that her appointment with the EP is in January. Today, the patient reports continued leg edema and shortness of breath with exertion. Continues to use 1 L nasal cannula for oxygen, and she notes that her oxygenation dropped into the high 80s without a supplemental oxygen therapy. She is otherwise denying any exertional chest pain, palpitations, dizziness, orthopnea, PND, presyncope, or syncope. [facility] Medical History Arthritis HX: breast cancer SOB (shortness of breath) On anticoagulant therapy Invasive ductal carcinoma of right breast in female A-fib Hypothyroid Osteoporosis Urethral stenosis Depression with anxiety Thyroid cancer Acid reflux Kidney stone QAMAR (obstructive sleep apnea) Hypertension Knee pain, left Surgical History History of lumpectomy of right breast (09/20/24) Hx of dilation of urethra Hx of cystoscopy H/O colonoscopy History of partial hysterectomy History of thyroidectomy Family History Mother Lung cancer Father HTN (hypertension) Melanoma Social History Household Members: Spouse Housing: House Are you a primary livestock caretaker to a significant other at home: No Do you presently have visiting nurse or other home services: No Alcohol intake: current Alcohol intake frequency: does not drink Patient Tobacco Use Status: Never used Tobacco e-Cigarette/Vaping Use: Never Used service: No Current occupational status: unemployed Current occupation: right handed Cognitive needs: No Hearing needs: No Vision needs: Yes Female Reproductive History Menstrual Age of Menarche: 13 Review of Systems Const Denies chills, Reports fatigue, Denies fever(s), Denies weight gain and Denies weight loss ENT Denies dizziness Card Denies chest pain, Reports leg edema, Denies lightheadedness, Denies palpitations, Reports dyspnea on exertion, Denies orthopnea and Denies other Resp Denies cough and Reports dyspnea on exertion GI Denies hematochezia and Denies change in stool character Musc Denies abnormal gait, Denies muscle weakness, Denies numbness, Denies radiating pain into limb and Denies tingling Neuro Denies abnormal gait, Denies dizziness, Denies numbness and Denies tingling Endo Reports fatigue and Denies palpitations Physical Exam Vital Signs: Last Vital Signs Pulse 79 01/17/25 14:39 BP 146/50 H 01/17/25 14:39 BMI result Body Mass Index 46.9 Const General: cooperative, healthy appearing, comfortable and no acute distress Orientation/consciousness: patient oriented x3 HEENT Head: Yes normal to inspection Neck Neck: Yes normal visual inspection, Yes trachea midline and Yes supple Chest Chest palpation & inspection: normal inspection of the chest Resp Effort & Inspection: normal respiratory effort Auscultation: clear to auscultation bilaterally, no crackles, no rales, no rhonchi and no wheezes Cardio Jugular venous distension: no JVD Palpation: normal PMI Rate: regular rate Rhythm: regular rhythm Heart sounds: S1 normal heart sound present, S2 normal heart sound present, no click, no gallops, no murmurs and no rubs Peripheral pulses: Peripheral pulses 2+ throughout GI Inspection: Yes normal to inspection Palpation (GI): Soft to palpation Auscultation: normal bowel sounds Skin General skin exam: no rashes or lesions noted Neuro General: patient oriented x3 Extrem General: No calf tenderness and Yes edema (3+ pitting edema to b/l LLE) Psych Appearance: grossly normal Mental Status: mental status grossly normal Speech and movement: Normal speech and movement present Office Procedures EKG Details: EKG today showed normal sinus rhythm, rate 79 beats per minute, right bundle branch block, nonspecific ST-T wave abnormalities, [place], [place]. [id number], Complete Assessment & Plan Assessment & Plan (1) Hospital discharge follow-up: Code(s): Z09 - Encounter for follow-up examination after completed treatment for conditions other than malignant neoplasm Plan: Patient was discharged home on Cardizem and torsemide. (2) A-fib: Code(s): I48.91 - Unspecified atrial fibrillation Category: Medical Qualifiers: Atrial fibrillation type: paroxysmal Qualified Code(s): I48.0 - Paroxysmal atrial fibrillation Plan: Continue Xarelto for anticoagulation. Continue with amiodarone, diltiazem and metoprolol therapy for rhythm and rate control. Today's EKG was sinus rhythm. Has an upcoming office visit with EP in January. (3) Peripheral edema: Code(s): R60.0 - Localized edema Category: Medical Plan: Patient has bilateral lower leg 2-3 + pitting edema. To address the fluid retention, we will increase her torsemide to 40 mg daily. Advised low-salt intake, fluid restriction 1.5 L per day. Given the patient's ongoing leg edema, we will order an ultrasound of bilateral lower legs to evaluate for potential vessel occlusion. (4) Hypertension: Code(s): I10 - Essential (primary) hypertension Category: Medical Qualifiers: Hypertension type: primary hypertension Qualified Code(s): I10 - Essential (primary) hypertension Plan: Blood pressure today is elevated. Could be due to the fluid retention. We will follow-up again in 1 week in the office. If patient continues to have high blood pressure we can add an RICARDO-I or ARB. (5) Obstructive sleep apnea: Code(s): G47.33 - Obstructive sleep apnea (adult) (pediatric) Category: Medical Plan: Patient is not using her CPAP machine, although she says she has 1 at home from several years ago. She is requesting to be fitted again for CPAP, with an adapter for her oxygen supplement. We referred her to sleep Medicine but patient had to cancel her appointment due to being hospitalized. Patient will follow up again with the office. Emphasized the importance of adhering to CPAP therapy to manage her sleep apnea. (6) Morbid obesity: Code(s): E66.01 - Morbid (severe) obesity due to excess calories Category: Medical Plan: Recommend heart healthy diet, exercise, and losing weight. Follow-up in 1 week. In the interim, patient will call us with any concerns. This note was generated using voice recognition software. While every effort has been made to ensure accuracy and proper sumac tanner, there may be occasional errors that could affect the content or meaning of the described symptoms. Orders: Orders US arterial duplex LE BI Today R60.0 - Localized edema AMB EKG-In Office Today I48.0 - Paroxysmal atrial fibrillation Medications: Changed From torsemide 20 mg PO DAILY 30 tabs 0RF To torsemide 40 mg (2 x 20 mg) PO DAILY 90 tabs 1RF Coding Level of Care Code Est Pt Level 4 (14549) Diagnoses Hospital discharge follow-up Z09 Paroxysmal atrial fibrillation I48.0 Atrial fibrillation type: paroxysmal Peripheral edema R60.0 Primary hypertension I10 Hypertension type: primary hypertension Obstructive sleep apnea G47.33 Morbid obesity E66.01 CPT Codes EKG - CPT: 86475-[id number], Complete ([id number]) Time Spent (min) 35 Comment Time spent in reviewing the chart, test results, assessment, counseling and documentation.
== END 2025-01-17 15:32 | disposition home or self-care (01) ==
PROVIDERS: PCP Internal Medicine
DX: Z09 Encounter for follow-up examination after completed treatment for conditions other than malignant neoplasm (principal); I48.0 Paroxysmal atrial fibrillation; R60.0 Localized edema; I10 Essential (primary) hypertension; G47.33 Obstructive sleep apnea (adult) (pediatric); E66.01 Morbid (severe) obesity due to excess calories
CPT/HCPCS: 93010; 99214

== ENCOUNTER → 2025-01-17 14:16 | Outpatient (BNVA) | payer OTHER, SELFPAY | PROVIDERS: PCP Internal Medicine | DX: Z09 Encounter for follow-up examination after completed treatment for conditions other than malignant neoplasm (principal); I48.0 Paroxysmal atrial fibrillation; R60.0 Localized edema; I10 Essential (primary) hypertension; G47.33 Obstructive sleep apnea (adult) (pediatric); E66.01 Morbid (severe) obesity due to excess calories; Z68.42 Body mass index [BMI] 45.0-49.9, adult; Z79.01 Long term (current) use of anticoagulants | CPT/HCPCS: 93005 ==

== ENCOUNTER 2025-01-25 13:03 | Outpatient (AMB) | payer OTHER, SELFPAY ==
[2025-01-25 13:12] VITALS: BP 118/62; PULSE 113; BMI 45.7
--- NOTE | 2025-01-25 13:12 | MHC.OFFVIS ---
Vital Signs 01/25/25 13:12 Height 5 ft 3 in Weight 257 lb 15.053 oz BMI 45.7 BP 118/62 Blood Pressure Location Lt brachial Position Sitting Pulse 113 H Pulse Source Monitor Intake Visit Reasons: 1 wk f/up Allergies erythromycin base Allergy (Intermediate, Verified 01/25/25 14:55) Abdominal Pain lisinopril Allergy (Intermediate, Verified 01/25/25 14:55) Rash Medication List - Last Reconciled 01/25/25 by Jeferson Sanchez NP alendronate 70 mg PO SA@0900 allopurinol 200 mg (2 x 100 mg) PO DAILY amiodarone 200 mg PO DAILY diltiazem HCl 30 mg See Protocol PO BID empagliflozin (Jardiance) 10 mg PO DAILY letrozole 2.5 mg PO DAILY levothyroxine 250 mcg PO LESLIE@0630 levothyroxine 125 mcg MOTUWETHFRSA metoprolol tartrate 100 mg PO BID omeprazole 20 mg PO DAILY@0630 PRN rivaroxaban (Xarelto) 20 mg PO DAILY@1700 torsemide 40 mg (2 x 20 mg) PO DAILY walker Standard wheeled walker HPI Comments Details: This is a 64-year-old female patient with a medical history of paroxysmal AFib, hypertension, sleep apnea, and obesity. Her AFib has generally been well-controlled with amiodarone and metoprolol, with mostly sinus rhythm. She was previously admitted to [facility] for acute hypoxic respiratory failure secondary to COVID-19, during which she was found to be in AFib with RVR. Patient was discharged with oxygen therapy and was followed up in our office. At that visit, her Cardizem therapy was discontinued due to significant bradycardia and it was also noted that patient has still had leg swelling and her Lasix was increased from 40 mg daily to 40 mg twice daily, but with minimal response. The patient was subsequently admitted again at [facility] [place] with worsening symptoms, where she was treated for congestive heart failure and AFib with RVR. She was treated with digoxin and her Lasix was switched to torsemide with some improvement. Patient states that during her hospital stay, she was also treated with prednisone for gout. For her recurrent AFib, a referral for EP consultation for ablation was made. Post all this, Patient was seen 1 week ago at the office for a hospital discharge follow-up. At that time patient continued to have leg edema and shortness of breath with exertion. We increase the torsemide to 40 daily with some improvement. Patient notes that she was feeling a little better over the week and then started to have gout flare-ups and is feeling terrible today. Patient is otherwise denying any chest pain, palpitations, dizziness, orthopnea, presyncope, or syncope. PFSH Medical History (HFpEF) heart failure with preserved ejection fraction Arthritis HX: breast cancer SOB (shortness of breath) On anticoagulant therapy Invasive ductal carcinoma of right breast in female A-fib Hypothyroid Osteoporosis Urethral stenosis Depression with anxiety Thyroid cancer Acid reflux Kidney stone QAMAR (obstructive sleep apnea) Hypertension Knee pain, left Surgical History History of lumpectomy of right breast (09/20/24) Hx of dilation of urethra Hx of cystoscopy H/O colonoscopy History of partial hysterectomy History of thyroidectomy Family History Mother Lung cancer Father HTN (hypertension) Melanoma Social History Household Members: Spouse Housing: House Are you a primary primary care nurse practitioner to a significant other at home: No Do you presently have visiting nurse or other home services: No Alcohol intake: current Alcohol intake frequency: does not drink Patient Tobacco Use Status: Never used Tobacco e-Cigarette/Vaping Use: Never Used Use of substances other than those prescribed or required for medical reasons: No Have you been hit, kicked, punched, or otherwise hurt by someone within the past year? If so, by whom?: No Do you feel safe in your current relationship?: Yes Do you have thoughts of harming others: None Do you have a plan to hurt others: No Plan Patient : No service: No Current occupational status: unemployed Current occupation: right handed Cognitive needs: No Hearing needs: No Vision needs: Yes Female Reproductive History Menstrual Age of Menarche: 13 Review of Systems Const Denies weakness ENT Denies dizziness Card Denies chest pain, Denies chest pain with activity, Denies syncope, Denies rapid heart rate, Denies pedal edema, Denies edema, Denies leg edema, Denies lightheadedness, Denies palpitations, Denies dyspnea, Denies dyspnea on exertion and Denies orthopnea Resp Denies cough, Denies dyspnea and Denies dyspnea on exertion GI Denies hematochezia and Denies change in stool character Musc Denies abnormal gait, Denies muscle cramps, Denies muscle weakness, Denies numbness, Denies radiating pain into limb and Denies tingling Neuro Denies abnormal gait, Denies dizziness, Denies syncope, Denies numbness, Denies tingling and Denies weakness Endo Denies palpitations Physical Exam Vital Signs: Last Vital Signs Pulse 113 H 01/25/25 13:12 BP 118/62 01/25/25 13:12 BMI result Body Mass Index 45.7 Const General: cooperative, healthy appearing, comfortable and no acute distress Orientation/consciousness: patient oriented x3 HEENT Head: Yes normal to inspection Neck Neck: Yes normal visual inspection, Yes trachea midline and Yes supple Chest Chest palpation & inspection: normal inspection of the chest Resp Other: On O2 supplement via nasal cannula Effort & Inspection: normal respiratory effort Auscultation: clear to auscultation bilaterally, no crackles, no rales, no rhonchi and no wheezes Cardio Jugular venous distension: JVD Palpation: normal PMI Rhythm: abnormal rhythm irregularly irregular Heart sounds: S1 normal heart sound present, S2 normal heart sound present, no click, no gallops, no murmurs and no rubs Peripheral pulses: Peripheral pulses 2+ throughout GI Inspection: Yes normal to inspection Palpation (GI): Soft to palpation Auscultation: normal bowel sounds Skin General skin exam: no rashes or lesions noted Neuro General: patient oriented x3 Extrem Other: Gout flare-ups visible on right index finger, 2nd toe of both feet-erythematous, swollen, warm to touch General: Yes normal to inspection, No calf tenderness and Yes edema (2+ bilaterally LE) Psych Appearance: grossly normal Mental Status: mental status grossly normal Speech and movement: Normal speech and movement present Office Procedures EKG Details: EKG today showed atrial fibrillation with RVR, rate 113 beats per minute, right bundle branch block, [place] [id number], Complete Assessment & Plan Assessment & Plan (1) A-fib: Code(s): I48.91 - Unspecified atrial fibrillation Category: Medical Qualifiers: Atrial fibrillation type: paroxysmal Qualified Code(s): I48.0 - Paroxysmal atrial fibrillation Plan: Continue Xarelto for anticoagulation. Continue with amiodarone, diltiazem and metoprolol therapy for rhythm and rate control. Today's EKG showed AFib with RVR. Patient has a an appointment with the EP upcoming Wednesday. (2) Peripheral edema: Code(s): R60.0 - Localized edema Category: Medical Plan: Patient has bilateral lower leg 2+ pitting edema. To address the fluid retention, we will increase her torsemide to 40 mg twice daily.. Advised low-salt intake, fluid restriction 1.5 L per day. Given the patient's ongoing leg edema, we have ordered an ultrasound of bilateral lower legs to evaluate for potential vessel occlusion. For ongoing shortness of breath, patient has an upcoming pulmonology office visit. (3) Hypertension: Code(s): I10 - Essential (primary) hypertension Category: Medical Qualifiers: Hypertension type: primary hypertension Qualified Code(s): I10 - Essential (primary) hypertension Plan: Blood pressure is well-controlled today continue current regimen. (4) Obstructive sleep apnea: Code(s): G47.33 - Obstructive sleep apnea (adult) (pediatric) Category: Medical Plan: Patient is not using her CPAP machine, although she says she has 1 at home from several years ago. She had requested to be fitted again for CPAP, with an adapter for her oxygen supplement. We referred her to sleep Medicine has an upcoming office visit with sleep study. Emphasized the importance of adhering to CPAP therapy to manage her sleep apnea. (5) Gout flare: Code(s): M10.9 - Gout, unspecified Category: Medical Qualifiers: Gout site: foot Gout etiology: unspecified cause Laterality: right Qualified Code(s): M10.9 - Gout, unspecified Plan: Patient has got flare ups in her right index finger as well as bilateral 2nd toes. Visibly erythematous, swelling, and is warm to touch. Have contacted PCP's office to address this. Patient is on maintenance allopurinol. We will add prednisone for the time being. (6) Morbid obesity: Code(s): E66.01 - Morbid (severe) obesity due to excess calories Category: Medical Plan: Recommend heart healthy diet, exercise, and losing weight. Follow-up in [address] Galarza. This note was generated using voice recognition software. While every effort has been made to ensure accuracy and proper operations program manager, there may be occasional errors that could affect the content or meaning of the described symptoms. Orders: Orders AMB EKG-In Office Today Jeferson Sanchez NP I48.0 - Paroxysmal atrial fibrillation Medications: New prednisone 30 mg (3 x 10 mg) PO DAILY 5 days 15 tabs 0RF Jeferson Sanchez NP Changed From letrozole 2.5 mg PO DAILY 90 tabs 3RF To letrozole 2.5 mg PO DAILY Vimal Koo MD From torsemide 40 mg (2 x 20 mg) PO DAILY 90 tabs 1RF To torsemide 40 mg (2 x 20 mg) PO BID 90 tabs 1RF Jeferson Sanchez NP Discontinued allopurinol Discontinued Reason: Doctor's Order 200 mg (2 x 100 mg) PO DAILY 180 tabs 0RF Coding Level of Care Code Est Pt Level 4 (52072) Complex EM visit Add On G2211 Diagnoses Paroxysmal atrial fibrillation I48.0 Atrial fibrillation type: paroxysmal Peripheral edema R60.0 Primary hypertension I10 Hypertension type: primary hypertension Obstructive sleep apnea G47.33 Acute gout of right foot, unspecified cause M10.9 Gout site: foot Gout etiology: unspecified cause Laterality: right Morbid obesity E66.01 CPT Codes EKG - CPT: 73213-Mnsohbejewmhecqkz, Complete ([id number]) Time Spent (min) 38 Comment Time spent in reviewing the chart, test results, assessment, counseling and documentation.
--- OUTSIDE RECORDS SUMMARY | 2025-01-25 15:33 | XMS_ITS | Encounter Summary ---
Author Organization [facility] Address [address] [place] [address] Care Team Providers Care Community Relations Specialist Name Role Phone Amita Ruiz MD Primary Care Provider [phone] Encounter Details Date Type Department Care Team (Latest Contact Info) Description 01/10/2025 8:36 AM EST - 01/10/2025 11:59 PM EST Hospital Encounter [facility] Radiation Oncology [address] [phone] Discharge Disposition: Home or Self [...] Info) Description 02/13/2025 11:30 AM EDT Appointment [facility] Radiation Oncology [address] [phone] Arabella King NP [address] [place] [address] documented as of this encounter Procedures Procedure [...] on filedocumented in this encounter Care Teams Community Relations Specialist Relationship Specialty Start Date End Date Amita Ruiz MD [address] [place] [address] PCP - General Internal Medicine 10/13/24 documented as of this encounter
--- OUTSIDE RECORDS SUMMARY | 2025-01-25 15:33 | XMS_ITS | Encounter Summary ---
Author Organization [facility] Address [address] [place] [address] Care Team Providers Care Electrical Integrator Name Role Phone Amita Ruiz MD Primary Care Provider [phone] Encounter Details Date Type Department Care Team (Latest Contact Info) Description 01/16/2025 8:24 AM EST - 01/16/2025 11:59 PM EST Hospital Encounter [facility] Radiation Oncology [address] [phone] Discharge Disposition: Home or Self [...] Info) Description 02/13/2025 11:30 AM EDT Appointment [facility] Radiation Oncology [address] [phone] Arabella King NP [address] [place] [address] documented as of this encounter Procedures Procedure [...] filedocumented in this encounter Care Teams Electrical Integrator Relationship Specialty Start Date End Date Amita Ruiz MD [address] [place] [address] PCP - General Internal Medicine 10/13/24 documented as of this encounter
--- OUTSIDE RECORDS SUMMARY | 2025-01-25 15:33 | XMS_ITS | Encounter Summary ---
Author Organization [facility] Address [address] [place] [address] Care Team Providers Care Contract Designer Name Role Phone Amita Ruiz MD Primary Care Provider [phone] Encounter Details Date Type Department Care Team (Latest Contact Info) Description 01/09/2025 8:26 AM EST - 01/09/2025 11:59 PM EST Hospital Encounter [facility] Radiation Oncology [address] [...] Info) Description 02/13/2025 11:30 AM EDT Appointment [facility] Radiation Oncology [address] [phone] Arabella King NP [address] [place] [address] documented as of this encounter Procedures Procedure [...] on filedocumented in this encounter Care Teams Contract Designer Relationship Specialty Start Date End Date Amita Ruiz MD [address] [place] [address] PCP - General Internal Medicine 10/13/24 documented as of this encounter
--- OUTSIDE RECORDS SUMMARY | 2025-01-25 15:33 | XMS_ITS | Encounter Summary ---
Author Organization [facility] Address [address] [place] [address] Care Team Providers Care Perinatal Breastfeeding Assistant Name Role Phone Amita Ruiz MD Primary Care Provider [phone] Encounter Details Date Type Department Care Team (Latest Contact Info) Description 01/12/2025 8:29 AM EST - 01/12/2025 11:59 PM EST Hospital Encounter [facility] Radiation Oncology [address] [phone] Discharge Disposition: Home or Self [...] Description 02/13/2025 11:[address] [facility] Radiation Oncology [address] [phone] Arabella King NP [address] [place] [address] documented as of this encounter Procedures Procedure [...] on filedocumented in this encounter Care Teams Perinatal Breastfeeding Assistant Relationship Specialty Start Date End Date Amita Ruiz MD [address] [place] [address] PCP - General Internal Medicine 10/13/24 documented as of this encounter
--- OUTSIDE RECORDS SUMMARY | 2025-01-25 15:33 | XMS_ITS | Encounter Summary ---
Author Organization [facility] Address [address] [place] [address] Care Team Providers Care Tactical Air Control Party Manager Name Role Phone Amita Ruiz MD Primary Care Provider [phone] Encounter Details Date Type Department Care Team (Latest Contact Info) Description 01/11/2025 2:03 PM EST - 01/11/2025 11:59 PM EST Hospital Encounter [facility] Radiation Oncology [address] [phone] Discharge Disposition: Home or [...] Appointment [facility] Radiation Oncology [address] [phone] Arabella King NP [address] [place] [address] documented as of this encounter Procedures Procedure [...] on filedocumented in this encounter Care Teams Tactical Air Control Party Manager Relationship Specialty Start Date End Date Amita Ruiz MD [address] [place] [address] PCP - General Internal Medicine 10/13/24 documented as of this encounter
--- OUTSIDE RECORDS SUMMARY | 2025-01-25 15:33 | XMS_ITS | Encounter Summary ---
Author Organization [facility] Address [address] [place] [address] Care Team Providers Care Outcomes Analyst Name Role Phone Amita Ruiz MD Primary Care Provider [phone] Reason for Visit * Reason Comments OTV Encounter Details Date Type Department Care Team (Latest Contact Info) Description 01/12/2025 8:52 AM EST - 01/12/2025 11:59 PM EST Hospital Encounter [facility] Radiation Oncology [address] [phone] Radha Bourgeois MD [address] [place] [address] Malignant neoplasm of upper-outer quadrant of right [...] Bourgeois MD - 01/12/2025 9:10 AM EST [address] [phone] Radiation Oncology On Treatment Visit Patient Name: [...] Stage IA (pT1c, pN0, cM0, G1, ER+, NJ+, HER2-) - Signed by Radha Bourgeois MD on 11/09/2024 Diagnosis: Right breast (UOQ) invasive ductal carcinoma, ER/NJ positive, Her2 negative 09/20/24 --right breast Lumpectomy with Dr. Crenshaw. Low Oncotype per pt Oct 2024 - started Letrozole Interval/Dose History: 3D KNOT CUTTER: Right Breast Treatment Period Technique Fraction Dose [...] had treatment break due to admission at [facility] due to leg swelling. Mild fungal [...] Description 02/13/2025 11:[address] [facility] Radiation Oncology [address] [phone] Arabella King NP [address] [place] [address] documented as of this encounter Visit Diagnoses [...] min. added in this encounter Care Teams Outcomes Analyst Relationship Specialty Start Date End Date Amita Ruiz MD [address] [facility] [place] [address] PCP - General Internal Medicine 10/13/24 documented as of this encounter
--- OUTSIDE RECORDS SUMMARY | 2025-01-25 15:34 | XMS_ITS ---
Author Organization [facility] Address [address] [place] [address] Care Team Providers Care Inspector Subassemblies Name Role Phone Amita Ruiz MD Primary Care Provider Arie Eduardo Jr REASON FOR VISIT Xarelto Encounters Encounter Location Date Provider Diagnosis [facility] [address] [place] [phone] 09/22/2023 Arie Last Jr PLAN OF TREATMENT No Information
--- OUTSIDE RECORDS SUMMARY | 2025-01-25 15:34 | XMS_ITS | Encounter Summary ---
Author Organization [facility] Address [address] [place] [address] Care Team Providers Care Laborer Cook House Name Role Phone Amita Ruiz MD Primary Care Provider [phone] Encounter Details Date Type Department Care Team (Latest Contact Info) Description 01/16/2025 8:56 AM EST - 01/16/2025 11:59 PM [facility] Hospital Encounter [facility] Radiation Oncology [address] [phone] Arabella King NP [address] [place] [address] Malignant neoplasm of upper-outer quadrant of right [...] documented in this encounter Progress Notes * Arabella King NP - 01/16/2025 9:10 AM EST Images from the original note were not included. [address] [phone] Radiation Oncology Treatment Completion Patient Name: Yaquelin Rasheed Date of : 1960 Attending Physician: Arabella King NP Diagnosis / Cancer Staging Malignant neoplasm of upper-outer quadrant of right breast in female, estrogen receptor positive ([facility]) Staging form: Breast, AJCC 8th Edition - Pathologic: Stage IA (pT1c, pN0, cM0, G1, ER+, [place]+, HER2-) - Signed by Radha Bourgeois MD on 11/09/2024 Site Summary: 3D OFFSET LITHOGRAPHIC PRESS SETTER: Right Breast Treatment Period Technique Fraction Dose Fractions Total Dose Course 1 12/18/2024-01/16/2025 (days elapsed: 29) Right Breast 12/18/2024-01/16/2025 Tangents 267 / 267 cGy 4272 / 4,272 cGy Intent: Curative Treatment Description: 3D OFFSET LITHOGRAPHIC PRESS SETTER Concurrent therapy: No Treatment Details: Subjective and/or Physical exam: Mild to moderate fatigue. Under the breat is tender. Using Eucerin. Breast with mild to moderate erythema and tanning. Skin is intact. Plan/Instructions: Keep breast open to area. Continue to moisturize. If skin opens to call us for sooner appointment. Treatment Outcome: Completed with breaks Treatment Delay: Hospitalized Disease Response to Treatment: Will be assessed at time of follow-up and Cannot yet be determined Follow-up: Return to Radiation Oncology 4-6 weeks with myself. Sooner if needed. Cosigned by Radha Bourgeois MD at 01/18/2025 4:39 PM EST * Arabella King NP - 01/16/2025 9:10 [...] 4 - 6 weeks. Go to front elevator operator for follow up appointment. Please call [phone] and select option #2 with any questions or concerns prior to your next visit. documented in this encounter Plan of Treatment Upcoming Encounters Date Type Department Care Team (Late st Contact Info) Description 02/13/2025 11:30 AM EDT Appointment [facility] Radiation Oncology [address] [phone] Arabella King NP [address] [place] [address] documented as of this encounter Visit Diagnoses Diagnosis Malignant neoplasm of upper-outer quadrant of right breast in female, estrogen receptor positive (CMS/HCC)- Primary documented in this encounter Care Teams Laborer Cook House Relationship Specialty Start Date End Date Amita Ruiz MD [address] [place] [address] PCP - General Internal Medicine 10/13/24 documented as of this encounter
--- OUTSIDE RECORDS SUMMARY | 2025-01-25 15:34 | XMS_ITS ---
Author Organization [facility] Address [address] [place] [address] Care Team Providers Care Adoption Coordinator Name Role Phone Amita Ruiz MD Primary Care Provider UnavailArie Royal Jr [phone] REASON FOR VISIT screening Encounters Encounter Location Date Provider Diagnosis [facility] Outpatient [address] [place] [phone] 10/26/2023 Arie Last Jr Encounter for screening colonoscopy Z12.11 and Colon polyps K63.5 ASSESSMENTS Encounter Date Diagnosis Assessment Notes Treatment Notes Treatment Clinical Notes 10/26/2023 Encounter for screening colonoscopy (ICD-10 - Z12.11) 10/26/2023 Colon polyps (ICD-10 - K63.5) PLAN OF TREATMENT No Information
--- OUTSIDE RECORDS SUMMARY | 2025-01-25 15:34 | XMS_ITS | Encounter Summary ---
Author Organization [facility] Address [address] [place] [address] Care Team Providers Care Cutlet Maker Pork Name Role Phone Amita Ruiz MD Primary Care Provider [phone] Encounter Details Date Type Department Care Team (Latest Contact Info) Description 01/08/2025 8:46 AM EST - 01/08/2025 11:59 PM EST Hospital Encounter [facility] Radiation Oncology [address] [phone] Discharge Disposition: Home or Self [...] Description 02/13/2025 11:30 AM EDT Appointment [facility] Radiation Oncology [address] [phone] Arabella King NP [address] [place] [address] documented as of this encounter Procedures Procedure [...] on filedocumented in this encounter Care Teams Cutlet Maker Pork Relationship Specialty Start Date End Date Amita Ruiz MD [address] [place] [address] PCP - General Internal Medicine 10/13/24 documented as of this encounter
--- OUTSIDE RECORDS SUMMARY | 2025-01-25 15:34 | XMS_ITS ---
Author Organization [facility] Address [address] [place] [address] Care Team Providers Care Child And Adolescent Psychiatrist Name Role Phone Amita Ruiz MD Primary Care Provider UnavailArie Royal Jr REASON FOR VISIT pathology Encounters Encounter Location Date Provider Diagnosis [facility] [address] [place] [phone] 11/04/2023 Arie Last Jr PLAN OF TREATMENT No Information
--- OUTSIDE RECORDS SUMMARY | 2025-01-25 15:34 | XMS_ITS | Encounter Summary ---
Author Organization [facility] Address [address] [place] [address] Care Team Providers Care Research Physiologist Name Role Phone Amita Ruiz MD Primary Care Provider [phone] Encounter Details Date Type Department Care Team (Latest Contact Info) Description 01/15/2025 8:25 AM EST - 01/15/2025 11:59 PM EST Hospital Encounter [facility] Radiation Oncology [address] [phone] Discharge Disposition: Home or Self [...] [facility] Radiation Oncology [address] [phone] Arabella King NP [address] [place] [address] documented as of this encounter Procedures Procedure [...] on filedocumented in this encounter Care Teams Research Physiologist Relationship Specialty Start Date End Date Amita Ruiz MD [address] [place] [address] PCP - General Internal Medicine 10/13/24 documented as of this encounter
--- OUTSIDE RECORDS SUMMARY | 2025-01-25 15:34 | XMS_ITS | Encounter Summary ---
Author Organization [facility] Address [address] [place] [address] Care Team Providers Care Senior Clinical Research Associate Name Role Phone Amita Ruiz MD Primary Care Provider [phone] Encounter Details Date Type Department Care Team (Latest Contact Info) Description 01/05/2025 8:27 AM EST - 01/05/2025 11:59 PM EST Hospital Encounter [facility] Radiation Oncology [address] [phone] Discharge Disposition: Home or Self [...] Appointment [facility] Radiation Oncology [address] [phone] Arabella King NP [address] [place] [address] documented as of this encounter Procedures Procedure [...] on filedocumented in this encounter Care Teams Senior Clinical Research Associate Relationship Specialty Start Date End Date Amita Ruiz MD [address] [place] [address] PCP - General Internal Medicine 10/13/24 documented as of this encounter
--- OUTSIDE RECORDS SUMMARY | 2025-01-25 15:34 | XMS_ITS | Encounter Summary ---
Author Organization [facility] Address [address] [place] [address] Care Team Providers Care Core Shaper Name Role Phone Amita Ruiz MD Primary Care Provider [phone] Reason for Visit * Reason Comments OTV Encounter Details Date Type Department Care Team (Latest Contact Info) Description 01/05/2025 8:46 AM EST - 01/05/2025 11:59 PM EST Hospital Encounter [facility] Radiation Oncology [address] [phone] Radha Bourgeois MD [address] [place] [address] Malignant neoplasm of upper-outer quadrant of right [...] Bourgeois MD - 01/05/2025 9:10 AM EST [address] [phone] Radiation Oncology On Treatment Visit Patient Name: [...] Stage IA (pT1c, pN0, cM0, G1, ER+, MD+, HER2-) - Signed by Radha Bourgeois MD on 11/09/2024 Diagnosis: Right breast (UOQ) invasive ductal carcinoma, ER/MD positive, Her2 negative 09/20/24 --right breast Lumpectomy with Dr. Crenshaw. 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 due to leg swelling. Mild fungal [...] Appointment [facility] Radiation Oncology [address] [phone] Arabella King NP [address] [place] [address] documented as of this encounter Visit Diagnoses [...] day. added in this encounter Care Teams Core Shaper Relationship Specialty Start Date End Date Amita Ruiz MD [address] [facility] [place] [address] PCP - General Internal Medicine 10/13/24 documented as of this encounter
--- OUTSIDE RECORDS SUMMARY | 2025-01-25 15:34 | XMS_ITS ---
Author Organization [facility] Address [address] [place] [address] Phone Care Team Providers Care Key Account Executive Name Role Phone Amita Ruiz MD Primary Care Provider [phone] Active Problems Problem Noted Date Diagnosed Date COVID-19 12/01/2024 Acute hypoxemic respiratory failure due to COVID -19 12/01/2024 Malignant neoplasm of upper- outer quadrant of right breast in female, estrogen receptor positive 11/09/2024 Cancer Staging:Pathologic:Stage IA(pT1c, pN0, cM0, G1, ER+, LA+, HER2-) - Signed by Radha Bourgeois MD [...]
--- OUTSIDE RECORDS SUMMARY | 2025-01-25 15:34 | XMS_ITS | Patient Health Record ---
Author Organization [facility] Address [address] [place] [address] Care Team Providers Care Test Eng Name Role Phone Amita Ruiz MD Primary [...] W/U Status Risk SNOMED Code Notes Problem Colon cancer screening (Z12.11) Active confirmed 940911294 Problem Irritable bowel syndrome with both constipation and diarrhea (K58.2) Active confirmed [id number] PLAN OF TREATMENT Future Test Test Name Order Date COLONOSCOPY 09/20/2023 Insurance Providers Payer Name Payer Address Payer Phone Subscriber Number Group Number Insured Name Patient Relationship to Insured Coverage Start Date Coverage End Date [employer] [address] [place] [address] [phone] [id number] TIFFANY SOUZA Self - patient is the insured MEDICAL (GENERAL) HISTORY Medical History History ICD Code Hypertension Papillary thyroid carcinoma Uterine fibroids Microscopic hematuria QAMAR/CPAP Osteoporosis Atrial fibrillation Surgical History Surgery Date(Month/Year) Thyroidectomy, lymph node exploration an d removal partial hysterectomy 2016 Hospitalization History Reason Date(Month/Year) Atrial fibrillation with rapid ventricul ar response 01/21
--- OUTSIDE RECORDS SUMMARY | 2025-01-25 15:34 | XMS_ITS | Encounter Summary ---
Author Organization [facility] [address] Address [address] [place] [address] Care Team Providers Care International Logistics Manager Name Role Phone Amita Ruiz MD Primary Care Provider [phone] Encounter Details Date Type Department Care Team (Latest Contact Info) Description 01/04/2025 8:57 AM EST - 01/04/2025 11:59 PM EST Hospital Encounter [facility] Radiation Oncology [address] [phone] Discharge Disposition: Home or [...] Description 02/13/2025 11:30 AM EDT Appointment [facility] Radiation Oncology [address] [phone] Arabella King NP [address] [place] [address] documented as of this encounter Visit Diagnoses Not on filedocumented in this encounter Care Teams International Logistics Manager Relationship Specialty Start Date End Date Amita Ruiz MD [address] [place] [address] PCP - General Internal Medicine 10/13/24 documented as of this encounter
--- OUTSIDE RECORDS SUMMARY | 2025-01-25 15:35 | XMS_ITS | Clinical Summary ---
Author Organization 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 Depression with anxiety 11/07/2024 Arthritis 11/07/2024 A-fib 11/07/2024 Hypothyroidism Resolved Problems Problem Noted Date Diagnosed Date Resolved Date Anemia 11/07/2024 11/07/2024 Encounters Date Type Department Care Team Description 01/16/2025 8:56 AM EST - 01/16/2025 11:59 PM EST Hospital Encounter [facility] Radiation Oncology [address] [place] [phone] Arabella King NP Malignant neoplasm of upper-outer quadrant of right breast in female, estrogen receptor positive (CMS/HCC) (Primary Dx) Discharge Disposition: Home or Self Care 01/16/2025 8:24 AM EST - 01/16/2025 11:59 PM EST Hospital Encounter [facility] Radiation Oncology [address] [place] [phone] Discharge Disposition: Home or Self Care 01/15/2025 8:25 AM EST - 01/15/2025 11:59 PM EST Hospital Encounter [facility] Radiation Oncology [address] [place] [phone] Discharge Disposition: Home or Self Care 01/12/2025 8:52 AM EST - 01/12/2025 11:59 PM EST Hospital Encounter [facility] Radiation Oncology [address] [place] [phone] Radha Bourgeois MD Malignant neoplasm of upper-outer quadrant of right breast in female, estrogen receptor positive (CMS/HCC) (Primary Dx) Discharge Disposition: Home or Self Care 01/12/2025 8:29 AM EST - 01/12/2025 11:59 PM EST Hospital Encounter [facility] Radiation Oncology [address] [place] [phone] Discharge Disposition: Home or Self Care 01/11/2025 2:03 PM EST - 01/11/2025 11:59 PM EST Hospital Encounter [facility] Radiation Oncology [address] [place] [phone] Discharge Disposition: Home or Self Care 01/10/2025 8:36 AM EST - 01/10/2025 11:59 PM EST Hospital Encounter [facility] Radiation Oncology [address] [place] [phone] Discharge Disposition: Home or Self Care 01/09/2025 8:26 AM EST - 01/09/2025 11:59 PM EST Hospital Encounter [facility] Radiation Oncology [address] [place] [phone] Discharge Disposition: Home or Self Care 01/08/2025 8:46 AM EST - 01/08/2025 11:59 PM EST Hospital Encounter [facility] Radiation Oncology [address] [place] [phone] Discharge Disposition: Home or Self Care 01/05/2025 8:46 AM EST - 01/05/2025 11:59 PM EST Hospital Encounter [facility] Radiation Oncology [address] [place] [phone] Radha Bourgeois MD Malignant neoplasm of upper-outer quadrant of right breast in female, estrogen receptor positive (CMS/HCC) (Primary Dx) Discharge Disposition: Home or Self Care 01/05/2025 8:27 AM EST - 01/05/2025 11:59 PM EST Hospital Encounter [facility] Radiation Oncology [address] [place] [phone] Discharge Disposition: Home or Self Care 01/04/2025 8:57 AM EST - 01/04/2025 11:59 PM EST Hospital Encounter [facility] Radiation Oncology [address] [place] [phone] Discharge Disposition: Home or Self Care 01/03/2025 8:32 AM EST - 01/03/2025 11:59 PM EST Hospital Encounter [facility] Radiation Oncology [address] [place] [phone] Discharge Disposition: Home or Self Care 01/02/2025 8:47 AM EST - 01/02/2025 11:59 PM EST Hospital Encounter [facility] Radiation Oncology [address] [place] [phone] Discharge Disposition: Home or Self Care 01/01/2025 8:28 AM EST - 01/01/2025 11:59 PM EST Hospital Encounter [facility] Radiation Oncology [address] [place] [phone] Discharge Disposition: Home or Self Care 12/21/2024 8:35 AM EST - 12/21/2024 11:59 PM EST Hospital Encounter [facility] Radiation Oncology [address] [place] [phone] Discharge Disposition: Home or Self Care 12/20/2024 8:41 AM EST - 12/20/2024 11:59 PM EST Hospital Encounter [facility] Radiation Oncology [address] [place] [phone] Discharge Disposition: Home or Self Care 12/19/2024 8:52 AM EST - 12/19/2024 11:59 PM EST Hospital Encounter [facility] Radiation Oncology [address] [place] [phone] Discharge Disposition: Home or Self Care 12/18/2024 11:15 AM EST - 12/18/2024 11:59 PM EST Hospital Encounter [facility] Radiation Oncology [address] [place] [phone] Pari Martinez MD Discharge Disposition: Home or Self Care 12/18/2024 10:53 AM EST - 12/18/2024 11:59 PM EST Hospital Encounter [facility] Radiation Oncology [address] [place] [phone] Discharge Disposition: Home or Self Care 12/01/2024 11:09 AM EST - 12/01/2024 11:59 PM EST Hospital Encounter [facility] Radiation Oncology [address] [place] [phone] Discharge Disposition: Home or Self Care 12/01/2024 9:30 AM EST - 12/07/2024 4:56 PM EST Hospital Encounter [facility] Intermediate Care Unit [address] [place] [phone] Josh Carranza MD Kela, Kashyap Devendrabhai, MD Rasul, Yar M, MD Surendran, Anupama, MD COVID (Primary Dx); Peripheral edema Discharge Disposition: Home-Health Care [facility] 12/01/2024 Telephone [facility] Radiation Oncology [address] [place] [phone] Hyacinth Pinzon, BAO has covid 11/16/2024 10:00 AM EST - 11/16/2024 11:59 PM EST Hospital Encounter [facility] Radiation Oncology [address] [place] [phone] Radha Bourgeois MD Malignant neoplasm of right breast in female, estrogen receptor positive, unspecified site of breast (CMS/HCC) Discharge Disposition: Home or Self Care 11/16/2024 9:13 AM EST - 11/16/2024 11:59 PM EST Hospital Encounter [facility] Radiation Oncology [address] [place] [phone] Malignant neoplasm of upper-outer quadrant of right breast in female, estrogen receptor positive (CMS/HCC) (Primary Dx) Discharge Disposition: Home or Self Care 11/09/2024 12:49 PM EST - 11/09/2024 11:59 PM EST Hospital Encounter [facility] Radiation Oncology [address] [place] [phone] Radha Bourgeois MD Malignant neoplasm of upper-outer quadrant of right breast in female, estrogen receptor positive (CMS/HCC) (Primary Dx); Malignant neoplasm of right breast in female, estrogen receptor positive, unspecified site of breast (CMS/HCC) Discharge Disposition: Home or Self Care 11/09/2024 12:36 PM EST - 11/09/2024 11:59 PM EST Hospital Encounter [facility] Radiation Oncology [address] [place] [phone] Discharge Disposition: Home or Self Care from [...] Info) Description 02/13/2025 11:30 AM EDT Appointment [facility] Radiation Oncology [address] [phone] Arabella King NP [address] [place] [address] Health Maintenance Due Date Last Done Comments [...] [facility] RADIATION ONCOLOGY 01/16/2025 8:56 AM EST us Physician Radiation Oncology MD RADIATION ONCOLO GY [...] GY ORDERABLES Final Result Performing Organization Address City/[facility] Co de Phone Number MOSAIQ RADIATION ONCOLOGY [...] GY ORDERABLES Final Result Performing Organization Address City/[facility]/ZIP Co de Phone Number MOSAIQ RADIATION [...] GY ORDERABLES Final Result Performing Organization Address City/[facility]/ZIP Co de Phone Number MOSAIQ RADIATION [...] 8:56 AM EST Physician Radiation Oncology RADIATION NO GY ORDERABLES Final Result [facility] RADIATION ONCOLOGY [...] Treatment Summary (12/18/2024 11:20 AM EST) Pathologist [facility] Treatment Site Right Breast MO SAIQ RADIATION [...] GY ORDERABLES Final Result Performing Organization Address City/[facility] Co de Phone Number MOS[facility] RADIATION ONCOLOGY * (ABNORMAL) CBC auto differential (12/07/2024 6:02 AM EST) Only the most recent of7 resultswithin the time period is included. WBC 15.5(H) 4.8 - 10.8 K/mcL LAB HEMETOLOGY METHOD 12/07/2024 7:21 AM EST [facility] RBC 3.30(L) 3.80 - 4.80 M/[facility] LAB HEMETOLOGY METHOD 12/07/2024 7:21 AM EST [facility] Hemoglobin 9.3(L) 11.5 - 16.0 g/dL LAB HEMETOLOGY METHOD 12/07/2024 7:21 AM EST [facility] Hematocrit 32.0(L) 35.0 - 47.0 % LAB HEMETOLOGY METHOD 12/07/2024 7:21 AM [facility] MCV 97.6 79.0 - 98.0 FL LAB HEMETOLOGY METHOD 12/07/2024 7:21 AM [facility] MCH 28.4 27.0 - 32.0 pcg LAB HEMETOLOGY METHOD 12/07/2024 7:21 AM [facility] MCHC 29.1(L) 32.0 - 37.0 g/dL LAB HEMETOLOGY METHOD 12/07/2024 7:21 AM [facility] RDW 18.9(H) 11.0 - 15.0 % LAB HEMETOLOGY METHOD 12/07/2024 7:21 AM [facility] Platelets 390 130 - 400 K/mcL LAB HEMETOLOGY METHOD 12/07/2024 7:21 AM [facility] MPV 10.0 7.0 - 11.0 FL LAB HEMETOLOGY METHOD 12/07/2024 7:21 AM [facility] NRBC 0.5 <1.0 % LAB HEMETOLOGY METHOD 12/07/2024 7:21 AM [facility] NRBC Absolute 0.07 <0.10 K/mcL LAB HEMETOLOGY METHOD 12/07/2024 7:21 AM [facility] Neutrophils Relative 74.5 % LAB HEMETOLOGY METHOD 12/07/2024 7:21 AM [facility] Lymphocytes Relative 13.6 % LAB HEMETOLOGY METHOD 12/07/2024 7:21 AM [facility] Monocytes Relative 7.6 % LAB HEMETOLOGY METHOD 12/07/2024 7:21 AM [facility] Eosinophils Relative 0.0 % LAB HEMETOLOGY METHOD 12/07/2024 7:21 AM [facility] Basophils Relative 0.4 % LAB HEMETOLOGY METHOD 12/07/2024 7:21 AM EST [facility] Immature Granulocytes Relative 3.9 % LAB HEMETOLOGY METHOD 12/07/2024 7:21 AM [facility] Neutrophils Absolute 11.53(H) 1.50 - 7.00 K/mcL LAB HEMETOLOGY METHOD 12/07/2024 7:21 AM [facility] Lymphocytes Absolute 2.10 1.00 - 5.00 K/mcL LAB HEMETOLOGY METHOD 12/07/2024 7:21 AM [facility] Monocytes Absolute 1.18(H) 0.20 - 1.00 K/mcL LAB HEMETOLOGY METHOD 12/07/2024 7:21 AM [facility] Eosinophils Absolute 0.00 0.00 - 0.50 K/mcL LAB HEMETOLOGY METHOD 12/07/2024 7:21 AM EST [facility] Basophils Absolute 0.06 0.00 - 0.20 K/mcL LAB HEMETOLOGY METHOD 12/07/2024 7:21 AM [facility] Immature Granulocytes Absolute 0.60(H) 0.00 - 0.03 K/mcL LAB HEMETOLOGY METHOD 12/07/2024 7:21 AM [facility] Blood Venous blood specimen / Unknown Venipuncture / Unknown 12/07/2024 6:02 AM EST 12/07/2024 6:51 AM EST us Milagro WEBBER LAB BLOOD ORDERABLES Final Result [facility] [address] [place] [address], * Folate (12/07/2024 6:02 AM EST) Pathologist [facility] Folate 13.9 2.8 - 17.0 ng/ml LAB CHEMISTRY METHOD 12/07/2024 9:35 AM EST [facility] Blood Venous blood specimen / Unknown Venipuncture / Unknown 12/07/2024 6:02 AM EST 12/07/2024 6:49 AM EST Nuria Marie MD LAB BLOOD ORDERABLES Final Result Performing Organization Address City/[facility]/ZIP Co de Phone Number [facility] [address] [place] [address], [place] [phone] * Vitamin B12 (12/07/2024 6:02 AM EST) [facility] Vitamin B-12 698 250 - 900 pcg/mL LAB CHEMISTRY METHOD 12/07/2024 9:59 AM [facility] Blood Venous blood specimen / Unknown Venipuncture / Unknown 12/07/2024 6:02 AM EST 12/07/2024 6:49 AM EST Nuria Marie MD LAB BLOOD ORDERABLES Final Result Performing Organization Address City/[facility] de Phone Number [facility] [address] [place] [address], [place] [phone] * (ABNORMAL) Basic metabolic panel (12/07/2024 6:02 AM EST) Only the most recent of7 resultswithin the time period is included. [facility] Sodium 139 133 - 145 mmol/L LAB CHEMISTRY METHOD 12/07/2024 7:57 AM [facility] Potassium 4.5 3.5 - 5.5 mmol/L LAB CHEMISTRY METHOD 12/07/2024 7:57 AM EST [facility] Chloride 96 96 - 110 mmol/L LAB CHEMISTRY METHOD 12/07/2024 7:57 AM [facility] CO2 38(H) 21 - 32 mmol/L LAB CHEMISTRY METHOD 12/07/2024 7:57 AM EST [facility] Anion Gap 5 3 - 11 LAB CHEMISTRY METHOD 12/07/2024 7:57 AM [facility] Glucose 153(H) 70 - 100 mg/dL LAB CHEMISTRY METHOD 12/07/2024 7:57 AM [facility] BUN 31(H) 5 - 25 mg/dL LAB CHEMISTRY METHOD 12/07/2024 7:57 AM [facility] Creatinine 1.22(H) 0.50 - 1.10 mg/dL LAB CHEMISTRY METHOD 12/07/2024 7:57 AM [facility] eGFR 50(L) >=60 mL/min/1. 73m2 LAB CHEMISTRY METHOD 12/07/2024 7:57 AM [facility] Comment:Calculation based on the??Chronic Kidney Disease Epidemiology Collaboration (CKD-EPI) equation refit??without adjustment for race. BUN/Creatinine Ratio 25.4 LAB CHEMISTRY METHOD 12/07/2024 7:57 AM [facility] Calcium 8.7 8.5 - 10.5 mg/dL LAB CHEMISTRY METHOD 12/07/2024 7:57 AM [facility] Blood Venous blood specimen / Unknown Venipuncture / Unknown 12/07/2024 6:02 AM EST 12/07/2024 6:49 AM EST us Milagro WEBBER LAB BLOOD ORDERABLES Final Result [facility] [address] [place] [address], [place] [phone] * TRANSTHORACIC ECHOCARDIOGRAM (TTE) COMPLETE W/ CONTRAST (12/05/2024 11:01 AM EST) Left Atrium Minor [place] 5.6 cm CV PACS Left Atrium Major [place] 5.5 cm CV PACS LA Area Sys [...] 6:59 AM EST Milagro WEBBER LAB BLOOD ORDERABLES Final Result [facility] [address] [place] [address], [place] [phone] * XR Chest 1 View (12/03/2024 7:33 PM EST) Anatomical Region Laterality Modality Body Radiographic Dahiana ging 12/04/2024 9:28 AM EST Impressions 12/04/2024 9:32 AM EST Impression: 1. Stable right hemidiaphragmatic elevation since 2019. 2. Lungs grossly clear. Telerad AKBAR ([id number]) -------- FINAL REPORT -------- Dictated By: Keiko Dyson Dictated Date: 12/04/2024 09:28 ET Assigned Physician: Keiko Dyson Reviewed and Electronically Signed By: Keiko Dyson Signed Date: 12/04/2024 09:32 ET Workstation ID: [id number] Transcribed By: Self Edit Transcribed Date: 12/04/2024 [...] 2019. 2. Lungs grossly clear. Telelula WEBBER ([id number]) -------- FINAL REPORT -------- Dictated By: Keiko Dyson Dictated Date: 12/04/2024 09:28 ET Assigned Physician: Keiko Dyson Reviewed and Electronically Signed By: Keiko Dyson Signed Date: 12/04/2024 09:32 ET Workstation ID: [id number] Transcribed By: Self Edit Transcribed Date: 12/04/2024 09:28 ET Angelic WEBBER IMG XR PROCEDURES Final Result * ECG 12 lead (12/03/2024 7:00 PM EST) Only the most recent of2 resultswithin the time period is included. Ventricular Rate ECG 101 BPM GEMUSE Atrial Rate 125 BPM GEMUSE QRS Duration 142 ms GEMUSE Q-T Interval 390 ms GEMUSE QTc 505 ms GEMUSE R [place] 79 degrees GEMUSE T [place] 33 degrees GEMUSE ECG Interpretation Atrial fibrillation with rapid ventricular response Right bundle branch block Abnormal ECG When compared with ECG of 01-DEC-2024 09:55, No significant change was found Confirmed by FLORENTIN VANEGAS ([id number]) on 12/04/2024 4:35:43 PM GEMUSE 12/03/2024 7:00 PM EST 12/04/2024 4:35 PM EST Raheel WEBBER ECG ORDERABLES Final Res ult Performing Organization Address [facility]/ZIP Co de Phone Number PAL * Procalcitonin (12/02/2024 9:18 AM EST) Procalcitonin [...] ng/mL are obtained. Raheel WEBBER LAB BLOOD ORDERABLES Sandee l Result Performing Organization Address [facility]/ZIP Co de Phone Number [facility] [address] [place] [address], [place] [phone] * Thyroid stimulating hormone (12/02/2024 9:18 AM EST) TSH 1.95 0.40 - 4.00 mcIU/mL LAB CHEMISTRY METHOD 12/02/2024 11:45 AM EST [facility] Blood Venous blood specimen / Unknown Venipuncture / Unknown 12/02/2024 9:18 AM EST 12/02/2024 9:44 AM EST [facility] LAB BLOOD ORDERABLES Sandee l Result Performing Organization Address City/[facility]/ZIP Co de Phone Number [facility] [address] [place] [address], * Lactate (12/02/2024 9:18 AM EST) Only the most recent of2 resultswithin the time period is included. Lactate 1.4 0.4 - 2.0 mmol/L LAB CHEMISTRY METHOD 12/02/2024 10:08 AM EST [facility] Blood Venous blood specimen / Unknown Venipuncture / Unknown 12/02/2024 9:18 AM EST 12/02/2024 9:45 AM EST [facility] LAB BLOOD ORDERABLES Sandee l Result Performing Organization Address City/[facility]/ZIP Co de Phone Number [facility] [address] [place] [address], * Culture blood (12/01/2024 4:05 PM EST) Only the most recent of2 resultswithin the time period is included. Culture, Blood No growth at 5 days 12/06/2024 5:01 PM EST [facility] Blood Venous blood specimen / Unknown Venipuncture / Unknown 12/01/2024 4:05 PM EST 12/01/2024 4:13 PM EST Giovana WEBBER LAB MICROBIOLOGY - GENERAL OR DERABLES Final Result Performing Organization Address City/[facility]/ZIP Co de Phone Number [facility] [address] [place] [address], [place] [phone] * (ABNORMAL) Prothrombin time with INR (12/01/2024 [...] ORDERABLES Final Re sult Performing Organization Address [facility]/ZIP Co de Phone Number [facility] [address] [place] [address], [place] [phone] * (ABNORMAL) B-type natriuretic peptide (12/01/2024 2:57 PM EST) Pathologist [facility] BNP 542(H) <=100 pcg/mL LAB CHEMISTRY METHOD 12/01/2024 3:42 PM EST [facility] Blood Venous blood specimen / Unknown Venipuncture / Unknown 12/01/2024 2:57 PM EST 12/01/2024 3:02 PM EST Giovana WEBBER LAB BLOOD ORDERABLES Final Re sult [facility] [address] [place] [address], [place] [phone] * CT Angio Chest wo and/or w [...] Signed Date: 12/01/2024 11:56 ET Workstation ID: [id number] Transcribed By: Self Edit Transcribed Date: 12/01/2024 [...] Signed Date: 12/01/2024 11:56 ET Workstation ID: [id number] Transcribed By: Self Edit Transcribed Date: 12/01/2024 11:53 ET Ailyn WEBBER IMG CT PROCEDURES Final Resul t * Troponin I high sensitivity (12/01/2024 10:12 AM EST) High Sensitivity Troponin I 7 <=54 ng/L LAB CHEMISTRY METHOD 12/01/2024 11:03 AM EST [facility] Blood Venous blood specimen / Unknown Venipuncture / Unknown 12/01/2024 10:12 AM EST 12/01/2024 10:30 AM EST [facility] - 12/01/2024 11:03 AM EST High levels of biotin in samples may falsely decrease hsTroponin values. ??Use caution when interpreting hsTroponin results in patients taking biotin who exhibit renal impairment (eGFR <60) or in patients taking more than 20 mg/day of biotin. Josh Carranza MD LAB BLOOD ORDERABLES Final Result Performing Organization Address City/[facility]/ZIP Co de Phone Number [facility] [address] [place] [address], [place] [phone] * Vitamin B12 and folate (12/01/2024 10:12 AM EST) [facility] Vitamin B-12 468 250 - 900 pcg/mL LAB CHEMISTRY METHOD 12/01/2024 4:12 PM [facility] Folate 10.4 2.8 - 17.0 ng/ml LAB CHEMISTRY METHOD 12/01/2024 4:12 PM [facility] Blood Venous blood specimen / Unknown Venipuncture / Unknown 12/01/2024 10:12 AM EST 12/01/2024 10:30 AM EST Giovana WEBBER LAB BLOOD ORDERABLES Final Re sult Performing Organization Address [facility]/ZIP Co de Phone Number [facility] [address] [place] [address], [place] [phone] * (ABNORMAL) Manual differential (12/01/2024 10:12 AM EST) [facility] Neutrophils % 90.0 % LAB HEMETOLOGY METHOD 12/01/2024 11:16 AM [facility] Lymphocytes % 6.0 % LAB HEMETOLOGY METHOD 12/01/2024 11:16 AM [facility] Monocytes % 4.0 % LAB HEMETOLOGY METHOD 12/01/2024 11:16 AM [facility] Eosinophils % 0.0 % LAB HEMETOLOGY METHOD 12/01/2024 11:16 AM [facility] Basophils % 0.0 % LAB HEMETOLOGY METHOD 12/01/2024 11:16 AM [facility] Neutrophils Absolute Manual 20.70(H) 1.50 - 7.00 K/mcL LAB HEMETOLOGY METHOD 12/01/2024 11:16 AM EST [facility] Lymphocytes Absolute 1.38 1.00 - 5.00 K/mcL LAB HEMETOLOGY METHOD 12/01/2024 11:16 AM [facility] Monocytes Absolute Manual 0.92 0.20 - 1.00 K/mcL LAB HEMETOLOGY METHOD 12/01/2024 11:16 AM [facility] Eosinophils Absolute Manual 0.00 0.00 - 0.50 K/mcL LAB HEMETOLOGY METHOD 12/01/2024 11:16 AM [facility] Basophils Absolute Manual 0.00 0.00 - 0.20 K/mcL LAB HEMETOLOGY METHOD 12/01/2024 11:16 AM [facility] Rbc Morphology Present( A) Consistent with indices, Normal for [place] LAB HEMETOLOGY METHOD 12/01/2024 11:16 AM [facility] Comment:RBC: Morphology agre es with CBC Platelet Morphology - WAM See Note(A) Normal LAB HEMETOLOGY METHOD 12/01/2024 11:16 AM [facility] Comment:PLT: Normal Polychromasia Present Present( A) (none) LAB HEMETOLOGY METHOD 12/01/2024 11:16 AM [facility] Blood Venous blood specimen / Unknown Venipuncture / Unknown 12/01/2024 10:12 AM EST 12/01/2024 10:30 AM EST us Ailyn WEBBER LAB BLOOD ORDERABLES Final Re sult [facility] [address] [place] [address], * (ABNORMAL) Iron and TIBC (12/01/2024 10:12 AM EST) [facility] Iron 19(L) 40 - 150 mcg/dL LAB CHEMISTRY METHOD 12/01/2024 2:49 PM EST [facility] TIBC 428 250 - 450 mcg/dL LAB CHEMISTRY METHOD 12/01/2024 2:49 PM [facility] Iron Saturation 4(L) 15 - 50 % LAB CHEMISTRY METHOD 12/01/2024 2:49 PM [facility] Blood Venous blood specimen / Unknown Venipuncture / Unknown 12/01/2024 10:12 AM EST 12/01/2024 10:30 AM EST Giovana WEBBER LAB BLOOD ORDERABLES Final Re sult Performing Organization Address [facility]/ZIP Co de Phone Number [facility] [address] [place] [address], [place] [phone] * Ferritin (12/01/2024 10:12 AM EST) [facility] Ferritin 31 8 - 252 ng/mL LAB CHEMISTRY METHOD 12/01/2024 3:23 PM [facility] Blood Venous blood specimen / Unknown Venipuncture / Unknown 12/01/2024 10:12 AM EST 12/01/2024 10:30 AM EST Giovana WEBBER LAB BLOOD ORDERABLES Final Re sult Performing Organization Address City/[facility]/ZIP Co de Phone Number [facility] [address] [place] [address], [place] [phone] * Hepatic function panel (12/01/2024 10:12 AM EST) [facility] Total Protein 6.5 6.0 - 8.0 g/dL LAB CHEMISTRY METHOD 12/01/2024 2:37 PM [facility] Albumin 3.3 3.2 - 5.0 g/dL LAB CHEMISTRY METHOD 12/01/2024 2:37 PM EST [facility] Total Bilirubin 0.5 0.0 - 1.4 mg/dL LAB CHEMISTRY METHOD 12/01/2024 2:37 PM [facility] Bilirubin, Direct 0.1 0.0 - 0.3 mg/dL LAB CHEMISTRY METHOD 12/01/2024 2:37 PM [facility] Bilirubin, Indirect 0.4 0.0 - 1.1 mg/dL LAB CHEMISTRY METHOD 12/01/2024 2:37 PM [facility] ALT (SGPT) 21 10 - 60 unit/L LAB CHEMISTRY METHOD 12/01/2024 2:37 PM [facility] AST (SGOT) 12 10 - 42 unit/L LAB CHEMISTRY METHOD 12/01/2024 2:37 PM [facility] Alkaline Phosphatase 68 42 - 121 unit/L LAB CHEMISTRY METHOD 12/01/2024 2:37 PM [facility] Blood Venous blood specimen / Unknown Venipuncture / Unknown 12/01/2024 10:12 AM EST 12/01/2024 10:30 AM EST us [facility] LAB BLOOD ORDERABLES Final Re sult [facility] [address] [place] [address], * (ABNORMAL) Respiratory virus panel molecular study (12/01/2024 10:06 AM EST) Adenovirus Detection by PCR Not Detected Not Detected LAB MICROBIOLOGY METHOD 12/01/2024 11:43 AM [facility] Influenza A PCR Not Detected Not Detected LAB MICROBIOLOGY METHOD 12/01/2024 11:43 AM [facility] Influenza B PCR Not Detected Not Detected LAB MICROBIOLOGY METHOD 12/01/2024 11:43 AM [facility] Coronavirus 229E Not Detected Not Detected LAB MICROBIOLOGY METHOD 12/01/2024 11:43 AM [facility] Coronavirus HKU1 Not Detected Not Detected LAB MICROBIOLOGY METHOD 12/01/2024 11:43 AM [facility] Coronavirus OC43 Not Detected Not Detected LAB MICROBIOLOGY METHOD 12/01/2024 11:43 AM [facility] Coronavirus NL63 Not Detected Not Detected LAB MICROBIOLOGY METHOD 12/01/2024 11:43 AM [facility] Parainfluenza Virus 1 Not Detected Not Detected LAB MICROBIOLOGY METHOD 12/01/2024 11:43 AM [facility] Parainfluenza Virus 2 Not Detected Not Detected LAB MICROBIOLOGY METHOD 12/01/2024 11:43 AM [facility] Parainfluenza Virus 3 Not Detected Not Detected LAB MICROBIOLOGY METHOD 12/01/2024 11:43 AM [facility] Parainfluenza Virus 4 Not Detected Not Detected LAB MICROBIOLOGY METHOD 12/01/2024 11:43 AM [facility] RSV PCR Not Detected Not Detected LAB MICROBIOLOGY METHOD 12/01/2024 11:43 AM [facility] Human Metapneumovirus A and B Not Detected Not Detected LAB MICROBIOLOGY METHOD 12/01/2024 11:43 AM [facility] Rhinovirus/Entero virus Not Detected Not Detected LAB MICROBIOLOGY METHOD 12/01/2024 11:43 AM [facility] Bordetella pertussis Not Detected Not Detected LAB MICROBIOLOGY METHOD 12/01/2024 11:43 AM [facility] Bordetella parapertussis Not Detected Not Detected LAB MICROBIOLOGY METHOD 12/01/2024 11:43 AM [facility] Mycoplasma pneumo by PCR Not Detected Not Detected LAB MICROBIOLOGY METHOD 12/01/2024 11:43 AM [facility] Chlamydia pneumoniae Not Detected Not Detected LAB MICROBIOLOGY METHOD 12/01/2024 11:43 AM [facility] SARS COV-2 Detected(A ) Not Detected LAB MICROBIOLOGY METHOD 12/01/2024 11:43 AM EST [facility] Swab Both anterior nares / Unknown Non-blood Collection / Unknown 12/01/2024 10:06 AM EST 12/01/2024 10:13 AM EST Narrative [facility] - 12/01/2024 11:43 AM EST Testing was performed using the [employer] Respiratory Pathogen PCR Assay. All results must [...] MICROBIOLOGY - GENERAL OR DERABLES Final Result [facility] [address] [place] [address], * ECG-Outside (12/01/2024) Only the most recent of2 resultswithin the time period is included. Provider Onbase MD ECG ORDERABLES Final Result * ECG-Annotated (12/01/2024) Provider Onbase MD ECG ORDERABLES Final Result [...] currently active code status orders. Care Teams Regional Service Manager Relationship Specialty Start Date End Date Amita Ruiz MD [address] [place] [address] PCP - General Internal Medicine 10/13/24
--- OUTSIDE RECORDS SUMMARY | 2025-01-25 15:35 | XMS_ITS | Encounter Summary ---
Author Organization [facility] Address [address] [place] [address] Care Team Providers Care A&P Mechanic Name Role Phone Amita Ruiz MD Primary Care Provider Encounter Details Date Type Department Care Team (Latest Contact Info) Description 01/01/2025 8:28 AM EST - 01/01/2025 11:59 PM EST Hospital Encounter [facility] Radiation Oncology [address] [phone] Discharge Disposition: Home or Self [...] Appointment [facility] Radiation Oncology [address] [phone] Arabella King NP [address] [place] [address] documented as of this encounter Procedures Procedure [...] on filedocumented in this encounter Care Teams A&P Mechanic Relationship Specialty Start Date End Date Amita Ruiz MD [address] [place] [address] PCP - General Internal Medicine 10/13/24 documented as of this encounter
--- OUTSIDE RECORDS SUMMARY | 2025-01-25 15:35 | XMS_ITS | Encounter Summary ---
Author Organization [facility] Address [address] [place] [address] Care Team Providers Care Track Laminating Machine Tender Name Role Phone Amita Ruiz MD Primary Care Provider [phone] Encounter Details Date Type Department Care Team (Latest Contact Info) Description 01/02/2025 8:47 AM EST - 01/02/2025 11:59 PM EST Hospital Encounter [facility] Radiation Oncology [address] [phone] Discharge Disposition: Home or Self [...] Appointment [facility] Radiation Oncology [address] [phone] Arabella King NP [address] [place] [address] documented as of this encounter Procedures Procedure [...] on filedocumented in this encounter Care Teams Track Laminating Machine Tender Relationship Specialty Start Date End Date Amita Ruiz MD [address] [place] [address] PCP - General Internal Medicine 10/13/24 documented as of this encounter
--- OUTSIDE RECORDS SUMMARY | 2025-01-25 15:35 | XMS_ITS | Encounter Summary ---
Author Organization [facility] Address [address] [place] [address] Care Team Providers Care Reexaminer Name Role Phone Amita Ruiz MD Primary Care Provider [phone] Encounter Details Date Type Department Care Team (Latest Contact Info) Description 01/03/2025 8:32 AM EST - 01/03/2025 11:59 PM EST Hospital Encounter [facility] Radiation Oncology [address] [phone] Discharge Disposition: Home or Self [...] [facility] Radiation Oncology [address] [phone] Arabella King NP [address] [place] [address] documented as of this encounter Procedures Procedure [...] on filedocumented in this encounter Care Teams Reexaminer Relationship Specialty Start Date End Date Amita Ruiz MD [address] [place] [address] PCP - General Internal Medicine 10/13/24 documented as of this encounter
== END 2025-01-25 13:58 | disposition home or self-care (01) ==
PROVIDERS: PCP Internal Medicine
DX: I48.0 Paroxysmal atrial fibrillation (principal); R60.0 Localized edema; I10 Essential (primary) hypertension; G47.33 Obstructive sleep apnea (adult) (pediatric); M10.9 Gout, unspecified; E66.01 Morbid (severe) obesity due to excess calories
CPT/HCPCS: 93010; 99214

== ENCOUNTER → 2025-01-25 13:03 | Outpatient (BNVA) | payer OTHER, SELFPAY | PROVIDERS: PCP Internal Medicine | DX: I48.0 Paroxysmal atrial fibrillation (principal); I10 Essential (primary) hypertension; R60.0 Localized edema; G47.33 Obstructive sleep apnea (adult) (pediatric); M10.9 Gout, unspecified; E66.01 Morbid (severe) obesity due to excess calories; Z68.42 Body mass index [BMI] 45.0-49.9, adult; Z79.01 Long term (current) use of anticoagulants; Z79.899 Other long term (current) drug therapy | CPT/HCPCS: 93005 ==

== ENCOUNTER 2025-01-30 09:09 | Outpatient (AMB) | payer OTHER, SELFPAY ==
--- NOTE | 2025-01-30 09:12 | MHC.OFFVIS ---
Vital Signs 01/30/25 09:25 Height 5 ft 1 in Weight 266 lb BMI 50.3 BP 147/64 H Blood Pressure Location Lt brachial Position Sitting Pulse 76 Intake Visit Reasons: 3 mth s/p Rt breast lumpectomy Intake Note: Pt is seen in office for 3 month follow up visit, breast exam. Pt c/o: finished radiation on 01/09/25 had 16 sessions, started Letrozole in 11/22, swollen ankles, denies any concerns regarding the breast mm:08/28/24 Finish Mill Operator Required: No Accompanied by: Self / Same As Patient Allergies erythromycin base Allergy (Intermediate, Verified 01/30/25 09:24) Abdominal Pain lisinopril Allergy (Intermediate, Verified 01/30/25 09:24) Rash HPI Comments Details: 64-year-old female patient presenting with a recent mammogram dated 07/26/2024 with follow-up images obtained on 08/24/2024 with ultrasound also 08/24/2024 which revealed a radial scar in the right breast which was felt to be suspicious for malignancy. Subsequently ultrasound-guided core biopsy on 08/28/2024 revealed a right breast infiltrating ductal carcinoma, grade 1, ER positive, MO positive, HER2 Brandon negative, Ki-67 low. Her family history is negative for breast cancer. Her father has history of malignant melanoma. She is , and breastfed both her children. She did have a previous left breast biopsy with needle localization performed by Dr. Rooney which was benign. A right breast lumpectomy with sentinel node biopsy was performed on 09/20/2024. This confirmed right infiltrating ductal carcinoma, grade 1, 10.8 mm, with DCIS, grade 1 and 2, negative margins, with 1 sentinel node negative for metastases (pT1c pN0 (sn) (AJCC 8th ed.)), ER/MO positive, HER2 Brandon negative. She developed AFib post discharge and is being evaluated by Cardiology. Since her last visit she reports decreased pain and swelling in the right operated breast. She is scheduled for a repeat CT of the neck to re-evaluate an area of swelling in the left anterior chest. She reports having a long history of a area of swelling in the left chest lateral to the sternum in his uncertain if this is what they are seeing on the CT. She was evaluated by Dr. Koo and started on letrozole which she is tolerating well. She underwent radiation therapy at [facility] (Dr. WARNER) and completed this on 01/09/2025. She reports tolerating the radiation well. She is now being treated for atrial fibrillation, CHF, and a recent COVID 19 infection. She is wearing nasal O2, and is awaiting an ablation for the AFib. [facility] Medical History (HFpEF) heart failure with preserved ejection fraction Arthritis HX: breast cancer SOB (shortness of breath) On anticoagulant therapy Invasive ductal carcinoma of right breast in female A-fib Hypothyroid Osteoporosis Urethral stenosis Depression with anxiety Thyroid cancer Acid reflux Kidney stone QAMAR (obstructive sleep apnea) Hypertension Knee pain, left Surgical History History of lumpectomy of right breast (09/20/24) Hx of dilation of urethra Hx of cystoscopy H/O colonoscopy History of partial hysterectomy History of thyroidectomy Family History Mother Lung cancer Father HTN (hypertension) Melanoma Social History Household Members: Spouse Housing: House Are you a primary patient care technician instructor to a significant other at home: No Do you presently have visiting nurse or other home services: No Alcohol intake: current Alcohol intake frequency: does not drink Patient Tobacco Use Status: Never used Tobacco e-Cigarette/Vaping Use: Never Used service: No Current occupational status: unemployed Current occupation: right handed Cognitive needs: No Hearing needs: No Vision needs: Yes Female Reproductive History Menstrual Age of Menarche: 13 Review of Systems Const All systems reviewed & are unremarkable except as noted in HPI and below Physical Exam Const General: no acute distress Nutritional Appearance: well nourished Orientation/consciousness: patient oriented x3 Limitations: ambulation with walker Chest Other: Right breast: Well-healed incision in the upper outer quadrant of the right breast with no ecchymosis. Mild radiation change noted. No new palpable mass, skin change, or enlarged lymph nodes. Left breast: No skin change, nipple discharge, palpable mass or enlarged lymph nodes. Chest/axillae images: 1. Well-healed incision upper outer quadrant right breast Resp Other: Nasal O2, mildly short of breath Effort & Inspection: normal respiratory effort Skin Other: Warm, dry, no rash Neuro General: patient oriented x3 Extrem Other: 1+ edema bilateral lower extremities Assessment & Plan Assessment & Plan (1) Invasive ductal carcinoma of right breast in female: Comment: 08/2024 s/p lumpectomy and radiation at [facility] Code(s): C50.911 - Malignant neoplasm of unspecified site of right female breast Category: Medical Plan 64-year-old female patient recently diagnosed with invasive ductal carcinoma of the right breast now status post right breast lumpectomy with sentinel node biopsy on 09/20/2024. She tolerated the procedure well returns today because of swelling in the incision. She completed radiation therapy and is currently on letrozole (Dr. Koo). Examination reveals no suspicious findings in either breast. There is minimal radiation change of the right breast. I recommended follow-up exam in 6 months. She will be due for a diagnostic mammogram in 06/2025. Orders: Orders MM diagnostic mammo BI Today C50.911 - Malignant neoplasm of unspecified site of right female breast Coding Level of Care Code Est Pt Level 3 (45185) Complex EM visit Add On G2211 Diagnoses Invasive ductal carcinoma of right breast in female C50.911
[2025-01-30 09:25] VITALS: BP 147/64; PULSE 76; BMI 50.3
--- OUTSIDE RECORDS SUMMARY | 2025-01-30 10:03 | XMS_ITS | Encounter Summary ---
Author Organization [facility] Address [address] [place] [address] Care Team Providers Care Rough Rounder Machine Name Role Phone Amita Ruiz MD Primary Care Provider Reason for Visit * Reason Comments OTV Encounter Details Date Type Department Care Team (Latest Contact Info) Description 01/12/2025 8:52 AM EST - 01/12/2025 11:59 PM EST Hospital Encounter [facility] Radiation Oncology [address] [phone] Radha Bourgeois MD [address] [place] [address] Malignant neoplasm of upper-outer quadrant of right [...] by mouth 1 (one) time each day. letrozole (FEMARA) 2.5 mg tablet Take 1 [...] day. Do not crush, chew, or split. documented as of this encounter Discharge Disposition [...] Bourgeois MD - 01/12/2025 9:10 AM EST [address] [phone] Radiation Oncology On Treatment Visit Patient Name: [...] Stage IA (pT1c, pN0, cM0, G1, ER+, CT+, HER2-) - Signed by Radha Bourgeois MD on 11/09/2024 Diagnosis: Right breast (UOQ) invasive ductal carcinoma, ER/CT positive, Her2 negative 09/20/24 --right breast Lumpectomy with Dr. Crenshaw. Low Oncotype per pt Oct 2024 - started Letrozole Interval/Dose History: 3D [employer] INTERN: Right Breast Treatment Period Technique Fraction Dose [...] had treatment break due to admission at [facility] due to leg swelling. Mild fungal [...] AM EDT Appointment [facility] Radiation Oncology [address] [phone] Arabella King NP [address] [place] [address] documented as of this encounter Visit Diagnoses [...] min. added in this encounter Care Teams Rough Rounder Machine Relationship Specialty Start Date End Date Amita Ruiz MD [address] [place] [address] PCP - General Internal Medicine 10/13/24 documented as of this encounter
--- OUTSIDE RECORDS SUMMARY | 2025-01-30 10:04 | XMS_ITS ---
Author Organization [facility] Address [address] [place] [address] Care Team Providers Care Wood Model Maker Name Role Phone Amita Ruiz MD Primary Care Provider Arie Eduardo Jr REASON FOR VISIT Xarelto Encounters Encounter Location Date Provider Diagnosis [facility] [address] [place] [phone] 09/22/2023 Arie Last Jr PLAN OF TREATMENT No Information
--- OUTSIDE RECORDS SUMMARY | 2025-01-30 10:04 | XMS_ITS | Encounter Summary ---
Author Organization [facility] Address [address] [place] [address] Care Team Providers Care Natural Resources Manager Name Role Phone Amita Ruiz MD Primary Care Provider [phone] Encounter Details Date Type Department Care Team (Latest Contact Info) Description 01/12/2025 8:29 AM EST - 01/12/2025 11:59 PM EST Hospital Encounter [facility] Radiation Oncology [address] [phone] Discharge Disposition: Home or Self [...] [facility] Radiation Oncology [address] [phone] Arabella King NP [address] [place] [address] documented as of this encounter Procedures Procedure [...] on filedocumented in this encounter Care Teams Natural Resources Manager Relationship Specialty Start Date End Date Amita Ruiz MD [address] [place] [address] PCP - General Internal Medicine 10/13/24 documented as of this encounter
--- OUTSIDE RECORDS SUMMARY | 2025-01-30 10:04 | XMS_ITS | Encounter Summary ---
Author Organization [facility] Address [address] [place] [address] Care Team Providers Care Feedlot Manager Name Role Phone Amita Ruiz MD Primary Care Provider [phone] Encounter Details Date Type Department Care Team (Latest Contact Info) Description 01/11/2025 2:03 PM EST - 01/11/2025 11:59 PM EST Hospital Encounter [facility] Radiation Oncology [address] [phone] Discharge Disposition: Home or Self [...] 02/13/2025 11:30 AM EDT Appointment [facility] Radiation Oncology [address] [phone] Arabella King NP [address] [place] [address] documented as of this encounter Procedures Procedure [...] on filedocumented in this encounter Care Teams Feedlot Manager Relationship Specialty Start Date End Date Amita Ruiz MD [address] [place] [address] PCP - General Internal Medicine 10/13/24 documented as of this encounter
--- OUTSIDE RECORDS SUMMARY | 2025-01-30 10:04 | XMS_ITS | Encounter Summary ---
Author Organization [facility] Address [address] [place] [address] Care Team Providers Care Call Center Director Name Role Phone Amita Ruiz MD Primary Care Provider [phone] Encounter Details Date Type Department Care Team (Latest Contact Info) Description 01/16/2025 8:24 AM EST - 01/16/2025 11:59 PM EST Hospital Encounter [facility] Radiation Oncology [address] [phone] Discharge Disposition: Home or Self [...] Description 02/13/2025 11:30 AM EDT Appointment [facility] Radiation Oncology [address] [phone] Arabella King NP [address] [place] [address] documented as of this encounter Procedures Procedure [...] on filedocumented in this encounter Care Teams Call Center Director Relationship Specialty Start Date End Date Amita Ruiz MD [address] [place] [address] PCP - General Internal Medicine 10/13/24 documented as of this encounter
--- OUTSIDE RECORDS SUMMARY | 2025-01-30 10:04 | XMS_ITS | Encounter Summary ---
Author Organization [facility] Address [address] [place] [address] Care Team Providers Care Cloth Stock Sorter Name Role Phone Amita Ruiz MD Primary Care Provider [phone] Encounter Details Date Type Department Care Team (Latest Contact Info) Description 01/08/2025 8:46 AM EST - 01/08/2025 11:59 PM EST Hospital Encounter [facility] Radiation Oncology [address] [phone] Discharge Disposition: Home or Self [...] Description 02/13/2025 11:30 AM EDT Appointment [facility] Radiation Oncology [address] [phone] Arabella King NP [address] [place] [address] documented as of this encounter Procedures Procedure [...] on filedocumented in this encounter Care Teams Cloth Stock Sorter Relationship Specialty Start Date End Date Amita Ruiz MD [address] [place] [address] PCP - General Internal Medicine 10/13/24 documented as of this encounter
--- OUTSIDE RECORDS SUMMARY | 2025-01-30 10:04 | XMS_ITS | Encounter Summary ---
Author Organization [facility] Address [address] [place] [address] Care Team Providers Care General Labor Forklift Operator Name Role Phone Amita Ruiz MD Primary Care Provider [phone] Encounter Details Date Type Department Care Team (Latest Contact Info) Description 01/04/2025 8:57 AM EST - 01/04/2025 11:59 PM EST Hospital Encounter [facility] Radiation Oncology [address] [phone] Discharge Disposition: Home or Self [...] Info) Description 02/13/2025 11:30 AM EDT Appointment [facility] Radiation Oncology [address] [phone] Arabella King NP [address] [place] [address] documented as of this encounter Visit Diagnoses Not on filedocumented in this encounter Care Teams General Labor Forklift Operator Relationship Specialty Start Date End Date Amita Ruiz MD [address] [facility] [place] [address] PCP - General Internal Medicine 10/13/24 documented as of this encounter
--- OUTSIDE RECORDS SUMMARY | 2025-01-30 10:04 | XMS_ITS | Encounter Summary ---
Author Organization [facility] Address [address] [place] [address] Care Team Providers Care Animal Bounty Hunter Name Role Phone Amita Ruiz MD Primary Care Provider Encounter Details Date Type Department Care Team (Latest Contact Info) Description 01/09/2025 8:26 AM EST - 01/09/2025 11:59 PM EST Hospital Encounter [facility] Radiation Oncology [address] [phone] Discharge Disposition: Home or [...] Info) Description 02/13/2025 11:30 AM EDT Appointment [facility] Radiation Oncology [address] [phone] Arabella King NP [address] [place] [address] documented as of this encounter Procedures Procedure [...] on filedocumented in this encounter Care Teams Animal Bounty Hunter Relationship Specialty Start Date End Date Amita Ruiz MD [address] [place] [address] PCP - General Internal Medicine 10/13/24 documented as of this encounter
--- OUTSIDE RECORDS SUMMARY | 2025-01-30 10:04 | XMS_ITS ---
Author Organization [facility] Address [address] [place] [phone] Care Team Providers Care Wafer Abrading Machine Tender Name Role Phone Amita Ruiz MD Primary Care Provider UnavailArie Royal Jr REASON FOR VISIT pathology Encounters Encounter Location Date Provider Diagnosis [facility] [address] [place] [phone] 11/04/2023 Arie Last Jr PLAN OF TREATMENT No Information
--- OUTSIDE RECORDS SUMMARY | 2025-01-30 10:04 | XMS_ITS | Encounter Summary ---
Author Organization [facility] Address [address] [place] [address] Care Team Providers Care Work Environment Safety Inspector Name Role Phone Amita Ruiz MD Primary Care Provider [phone] Encounter Details Date Type Department Care Team (Latest Contact Info) Description 01/15/2025 8:25 AM EST - 01/15/2025 11:59 PM EST Hospital Encounter [facility] Radiation Oncology [address] [phone] Discharge Disposition: Home or Self [...] Description 02/13/2025 11:30 AM EDT Appointment [facility] Radiation Oncology [address] [phone] Arabella King NP [address] [place] [address] documented as of this encounter Procedures Procedure [...] on filedocumented in this encounter Care Teams Work Environment Safety Inspector Relationship Specialty Start Date End Date Amita Ruiz MD [address] [place] [address] PCP - General Internal Medicine 10/13/24 documented as of this encounter
--- OUTSIDE RECORDS SUMMARY | 2025-01-30 10:04 | XMS_ITS | Encounter Summary ---
Author Organization [facility] Address [address] [place] [address] Care Team Providers Care Fagot Maker Name Role Phone Amita Ruiz MD Primary Care Provider [phone] Encounter Details Date Type Department Care Team (Latest Contact Info) Description 01/10/2025 8:36 AM EST - 01/10/2025 11:59 PM EST Hospital Encounter [facility] Radiation Oncology [address] [phone] Discharge Disposition: Home or Self [...] Description 02/13/2025 11:30 AM EDT Appointment [facility] Radiation Oncology [address] [phone] Arabella King NP [address] [place] [address] documented as of this encounter Procedures Procedure [...] on filedocumented in this encounter Care Teams Fagot Maker Relationship Specialty Start Date End Date Amita Ruiz MD [address] [place] [address] PCP - General Internal Medicine 10/13/24 documented as of this encounter
--- OUTSIDE RECORDS SUMMARY | 2025-01-30 10:05 | XMS_ITS | Encounter Summary ---
Author Organization [facility] Address [address] [place] [address] Care Team Providers Care Trial Judge Name Role Phone Amita Ruiz MD Primary Care Provider [phone] Encounter Details Date Type Department Care Team (Latest Contact Info) Description 01/05/2025 8:27 AM EST - 01/05/2025 11:59 PM EST Hospital Encounter [facility] Radiation Oncology [address] [phone] Discharge Disposition: Home or Self [...] Info) Description 02/13/2025 11:30 AM EDT Appointment [facility] Radiation Oncology [address] [phone] Arabella King NP [address] [place] [address] documented as of this encounter Procedures Procedure [...] on filedocumented in this encounter Care Teams Trial Judge Relationship Specialty Start Date End Date Amita Ruiz MD [address] [place] [address] PCP - General Internal Medicine 10/13/24 documented as of this encounter
--- OUTSIDE RECORDS SUMMARY | 2025-01-30 10:05 | XMS_ITS ---
Author Organization [facility] Address [address] [place] [address] Phone Care Team Providers Care Opener Name Role Phone Amita Ruiz MD Primary Care Provider [phone] Active Problems Problem Noted Date Diagnosed Date COVID-19 12/01/2024 Acute hypoxemic respiratory failure due to COVID -19 12/01/2024 Malignant neoplasm of upper- outer quadrant of right breast in female, estrogen receptor positive 11/09/2024 Cancer Staging:Pathologic:Stage IA(pT1c, pN0, cM0, G1, ER+, OR+, HER2-) - Signed by Radha Bourgeois MD [...]
--- OUTSIDE RECORDS SUMMARY | 2025-01-30 10:05 | XMS_ITS | Encounter Summary ---
Author Organization [facility] Address [address] [place] [address] Care Team Providers Care Lead Technologist In Cytogenetics Name Role Phone Amita Ruiz MD Primary Care Provider [phone] Reason for Visit * Reason Comments OTV Encounter Details Date Type Department Care Team (Latest Contact Info) Description 01/05/2025 8:46 AM EST - 01/05/2025 11:59 PM EST Hospital Encounter [facility] Radiation Oncology [address] [phone] Radha Bourgeois MD [address] [place] [address] Malignant neoplasm of upper-outer quadrant of right [...] (one) time each day. 30 each 12/08/2024 letrozole (FEMARA) 2.5 mg tablet Take 1 [...] (one) time each day. 30 each 12/07/2024 documented as of this encounter Discharge [...] Bourgeois MD - 01/05/2025 9:10 AM EST [address] [phone] Radiation Oncology On Treatment Visit Patient Name: [...] Stage IA (pT1c, pN0, cM0, G1, ER+, ID+, HER2-) - Signed by Radha Bourgeois MD on 11/09/2024 Diagnosis: Right breast (UOQ) invasive ductal carcinoma, ER/ID positive, Her2 negative 09/20/24 --right breast Lumpectomy with Dr. Crenshaw. Low Oncotype per pt Oct 2024 - started Letrozole Interval/Dose History: 3D BORING MACHINE SET UP OPERATOR JIG: Right Breast Treatment Period Technique Fraction Dose [...] had treatment break due to admission at [facility] due to leg swelling. Mild [...] Description 02/13/2025 11:[address] [facility] Radiation Oncology [address] [phone] Arabella King NP [address] [place] [address] documented as of this encounter Visit Diagnoses [...] day. added in this encounter Care Teams Lead Technologist In Cytogenetics Relationship Specialty Start Date End Date Amita Ruiz MD [address] [facility] [place] [address] PCP - General Internal Medicine 10/13/24 documented as of this encounter
--- OUTSIDE RECORDS SUMMARY | 2025-01-30 10:06 | XMS_ITS ---
Author Organization [facility] Address [address] [place] [address] Care Team Providers Care Lead Programmer Analyst Name Role Phone Amita Ruiz MD Primary Care Provider UnavailArie Royal Jr REASON FOR VISIT screening Encounters Encounter Location Date Provider Diagnosis [facility] Outpatient [address] [place] [phone] 10/26/2023 Arie Last Jr Encounter for screening colonoscopy Z12.11 and Colon polyps K63.5 ASSESSMENTS Encounter Date Diagnosis Assessment Notes Treatment Notes Treatment Clinical Notes 10/26/2023 Encounter for screening colonoscopy (ICD-10 - Z12.11) 10/26/2023 Colon polyps (ICD-10 - K63.5) PLAN OF TREATMENT No Information
--- OUTSIDE RECORDS SUMMARY | 2025-01-30 10:06 | XMS_ITS | Patient Health Record ---
Author Organization [facility] Address [address] [place] [address] Care Team Providers Care Ophthalmic Surgeon Name Role Phone Amita Ruiz MD Primary Care Provider Arie Eduardo Jr Unavailable [phone] ALLERGIES Allergen (clinical drug ingredient) Drug/Non Drug [...] Problem Colon cancer screening (Z12.11) Active confirmed [id number] Problem Irritable bowel syndrome with both constipation and diarrhea (K58.2) Active confirmed [id number] PLAN OF TREATMENT Future Test Test Name Order Date COLONOSCOPY 09/20/2023 Insurance Providers Payer Name Payer Address Payer Phone Subscriber Number Group Number Insured Name Patient Relationship to Insured Coverage Start Date Coverage End Date [employer] [address] [place] [address] [id number] TIFFANY SOUZA Self - patient is the insured MEDICAL (GENERAL) HISTORY Medical History History ICD Code Hypertension Papillary thyroid carcinoma Uterine fibroids Microscopic hematuria QAMAR/CPAP Osteoporosis Atrial fibrillation Surgical History Surgery Date(Month/Year) Thyroidectomy, lymph node exploration an d removal partial hysterectomy 2016 Hospitalization History Reason Date(Month/Year) Atrial fibrillation with rapid ventricul ar response 01/21
--- OUTSIDE RECORDS SUMMARY | 2025-01-30 10:06 | XMS_ITS | Encounter Summary ---
Author Organization [facility] Address [address] [place] [address] Care Team Providers Care Unemployment Inspector Name Role Phone Amita Ruiz MD Primary Care Provider [phone] Encounter Details Date Type Department Care Team (Latest Contact Info) Description 01/16/2025 8:56 AM EST - 01/16/2025 11:59 PM [facility] Hospital Encounter [facility] Radiation Oncology [address] [phone] Arabella King NP [address] [place] [address] Malignant neoplasm of upper-outer quadrant of right [...] from the original note were not included. 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 Go to front desk receptionist for follow up appointment. Please call [phone] and select option #2 with any questions or concerns prior to your next visit. documented in this encounter Plan of Treatment Upcoming Encounters Date Type Department Care Team (Late st Contact Info) Description 02/13/2025 11:30 AM EDT Appointment [facility] Radiation Oncology [address] [phone] Arabella King NP [address] [place] [address] documented as of this encounter Visit Diagnoses Diagnosis Malignant neoplasm of upper-outer quadrant of right breast in female, estrogen receptor positive (CMS/HCC)- Primary documented in this encounter Care Teams Unemployment Inspector Relationship Specialty Start Date End Date Amita Ruiz MD [address] [place] [address] PCP - General Internal Medicine 10/13/24 documented as of this encounter
--- OUTSIDE RECORDS SUMMARY | 2025-01-30 10:07 | XMS_ITS | Encounter Summary ---
Author Organization [facility] Address [address] [place] [address] Care Team Providers Care Blow Molder Name Role Phone Amita Ruiz MD Primary Care Provider [phone] Encounter Details Date Type Department Care Team (Latest Contact Info) Description 01/03/2025 8:32 AM EST - 01/03/2025 11:59 PM EST Hospital Encounter [facility] Radiation Oncology [address] [phone] Discharge Disposition: Home or Self [...] [facility] Radiation Oncology [address] [phone] Arabella King NP [address] [place] [address] documented as of this encounter Procedures Procedure [...] on filedocumented in this encounter Care Teams Blow Molder Relationship Specialty Start Date End Date Amita Ruiz MD [address] [place] [phone] PCP - General Internal Medicine 10/13/24 documented as of this encounter
--- OUTSIDE RECORDS SUMMARY | 2025-01-30 10:07 | XMS_ITS | Encounter Summary ---
Author Organization [facility] Address [address] [place] [address] Care Team Providers Care Director Of Vocational Guidance Name Role Phone Amita Ruiz MD Primary Care Provider [phone] Encounter Details Date Type Department Care Team (Latest Contact Info) Description 01/02/2025 8:47 AM EST - 01/02/2025 11:59 PM EST Hospital Encounter [facility] Radiation Oncology [address] [phone] Discharge Disposition: Home or [...] Info) Description 02/13/2025 11:30 AM EDT Appointment [facility] Radiation Oncology [address] [phone] Arabella King NP [address] [place] [address] documented as of this encounter Procedures Procedure [...] in this encounter Care Teams Director Of Vocational Guidance Relationship Specialty Start Date End Date Amita Ruiz MD [address] [place] [address] PCP - General Internal Medicine 10/13/24 documented as of this encounter
--- OUTSIDE RECORDS SUMMARY | 2025-01-30 10:07 | XMS_ITS | Clinical Summary ---
Author Organization [facility] Address [address] [place] [address] Phone Care Team Providers Care Email Campaign Manager Name Role Phone Amita Ruiz MD Primary Care Provider [phone] Allergies Active Allergy Reactions Criticality Noted Date [...] Cancer Staging:Pathologic:Stage IA(pT1c, pN0, cM0, G1, ER+, ID+, HER2-) - [...] - 01/16/2025 11:59 PM EST Hospital Encounter [facility] Radiation Oncology [address] [place] [phone] Arabella King NP Malignant neoplasm of upper-outer quadrant of right breast in female, estrogen receptor positive (CMS/HCC) (Primary Dx) Discharge Disposition: Home or Self Care 01/16/2025 8:24 AM EST - 01/16/2025 11:59 PM EST Hospital Encounter [facility] Radiation Oncology [address] [place] [phone] Discharge Disposition: Home or Self Care 01/15/2025 8:25 AM EST - 01/15/2025 11:59 PM EST Hospital Encounter [facility] Radiation Oncology [address] [place] [phone] Discharge Disposition: Home or Self Care 01/12/2025 8:52 AM EST - 01/12/2025 11:59 PM EST Hospital Encounter [facility] Radiation Oncology [address] [place] [phone] Radha Bourgeois MD Malignant neoplasm of upper-outer quadrant of right breast in female, estrogen receptor positive (CMS/HCC) (Primary Dx) Discharge Disposition: Home or Self Care 01/12/2025 8:29 AM EST - 01/12/2025 11:59 PM EST Hospital Encounter [facility] Radiation Oncology [address] [place] [phone] Discharge Disposition: Home or Self Care 01/11/2025 2:03 PM EST - 01/11/2025 11:59 PM EST Hospital Encounter [facility] Radiation Oncology [address] [place] [phone] Discharge Disposition: Home or Self Care 01/10/2025 8:36 AM EST - 01/10/2025 11:59 PM EST Hospital Encounter [facility] Radiation Oncology [address] [place] [phone] Discharge Disposition: Home or Self Care 01/09/2025 8:26 AM EST - 01/09/2025 11:59 PM EST Hospital Encounter [facility] Radiation Oncology [address] [place] [phone] Discharge Disposition: Home or Self Care 01/08/2025 8:46 AM EST - 01/08/2025 11:59 PM EST Hospital Encounter [facility] Radiation Oncology [address] [place] [phone] Discharge Disposition: Home or Self Care 01/05/2025 8:46 AM EST - 01/05/2025 11:59 PM EST Hospital Encounter [facility] Radiation Oncology [address] [place] [phone] Radha Bourgeois MD Malignant neoplasm of upper-outer quadrant of right breast in female, estrogen receptor positive (CMS/HCC) (Primary Dx) Discharge Disposition: Home or Self Care 01/05/2025 8:27 AM EST - 01/05/2025 11:59 PM EST Hospital Encounter [facility] Radiation Oncology [address] [place] [phone] Discharge Disposition: Home or Self Care 01/04/2025 8:57 AM EST - 01/04/2025 11:59 PM EST Hospital Encounter [facility] Radiation Oncology [address] [place] [phone] Discharge Disposition: Home or Self Care 01/03/2025 8:32 AM EST - 01/03/2025 11:59 PM EST Hospital Encounter [facility] Radiation Oncology [address] [place] [phone] Discharge Disposition: Home or Self Care 01/02/2025 8:47 AM EST - 01/02/2025 11:59 PM EST Hospital Encounter [facility] Radiation Oncology [address] [place] [phone] Discharge Disposition: Home or Self Care 01/01/2025 8:28 AM EST - 01/01/2025 11:59 PM EST Hospital Encounter [facility] Radiation Oncology [address] [place] [phone] Discharge Disposition: Home or Self Care 12/21/2024 8:35 AM EST - 12/21/2024 11:59 PM EST Hospital Encounter [facility] Radiation Oncology [address] [place] [phone] Discharge Disposition: Home or Self Care 12/20/2024 8:41 AM EST - 12/20/2024 11:59 PM EST Hospital Encounter [facility] Radiation Oncology [address] [place] [phone] Discharge Disposition: Home or Self Care 12/19/2024 8:52 AM EST - 12/19/2024 11:59 PM EST Hospital Encounter [facility] Radiation Oncology [address] [place] [phone] Discharge Disposition: Home or Self Care 12/18/2024 11:15 AM EST - 12/18/2024 11:59 PM EST Hospital Encounter [facility] Radiation Oncology [address] [place] [phone] Pari Martinez MD Discharge Disposition: Home or Self Care 12/18/2024 10:53 AM EST - 12/18/2024 11:59 PM EST Hospital Encounter [facility] Radiation Oncology [address] [place] [phone] Discharge Disposition: Home or Self Care 12/01/2024 11:09 AM EST - 12/01/2024 11:59 PM EST Hospital Encounter [facility] Radiation Oncology [address] [place] [phone] Discharge Disposition: Home or Self Care 12/01/2024 9:30 AM EST - 12/07/2024 4:56 PM EST Hospital Encounter [facility] Intermediate Care Unit [address] [place] [phone] Josh Carranza MD Kela, Kashyap Devendrabhai, MD Rasul, Yar M, MD Surendran, Anupama, MD COVID (Primary Dx); Peripheral edema Discharge Disposition: Home-Health Care [facility] 12/01/2024 Telephone [facility] Radiation Oncology [address] [place] [phone] Hyacinth Pinzon, BAO has covid 11/16/2024 10:00 AM EST - 11/16/2024 11:59 PM EST Hospital Encounter [facility] Radiation Oncology [address] [place] [phone] Radha Bourgeois MD Malignant neoplasm of right breast in female, estrogen receptor positive, unspecified site of breast (CMS/HCC) Discharge Disposition: Home or Self Care 11/16/2024 9:13 AM EST - 11/16/2024 11:59 PM EST Hospital Encounter [facility] Radiation Oncology [address] [place] [phone] Malignant neoplasm of upper-outer quadrant of right breast in female, estrogen receptor positive (CMS/HCC) (Primary Dx) Discharge Disposition: Home or Self Care 11/09/2024 12:49 PM EST - 11/09/2024 11:59 PM EST Hospital Encounter [facility] Radiation Oncology [address] [place] [phone] Radha Bourgeois MD Malignant neoplasm of upper-outer quadrant of right breast in female, estrogen receptor positive (CMS/HCC) (Primary Dx); Malignant neoplasm of right breast in female, estrogen receptor positive, unspecified site of breast (CMS/HCC) Discharge Disposition: Home or Self Care 11/09/2024 12:36 PM EST - 11/09/2024 11:59 PM EST Hospital Encounter [facility] Radiation Oncology [address] [place] [phone] Discharge Disposition: Home or Self Care from [...] Description 02/13/2025 11:30 AM EDT Appointment [facility] Radiation Oncology [address] [phone] Arabella King NP [address] [place] [address] Health Maintenance Due Date Last Done Comments [...] GY ORDERABLES Final Result Performing Organization Address City/[facility] Co de Phone Number [facility] RADIATION [...] GY ORDERABLES Final Result Performing Organization Address City/[facility]/ZIP Co de Phone Number MOS[facility] RADIATION [...] GY ORDERABLES Final Result Performing Organization Address City/[facility]/ZIP Co de Phone Number [facility] RADIATION [...] GY ORDERABLES Final Result Performing Organization Address City/[facility] Co de Phone Number [facility] RADIATION ONCOLOGY * (ABNORMAL) CBC auto differential (12/07/2024 6:02 AM EST) Only the most recent of7 resultswithin the time period is included. WBC 15.5(H) 4.8 - 10.8 K/mcL LAB HEMETOLOGY METHOD 12/07/2024 7:21 AM EST [facility] RBC 3.30(L) 3.80 - 4.80 M/[facility] LAB HEMETOLOGY METHOD 12/07/2024 7:21 AM EST [facility] Hemoglobin 9.3(L) 11.5 - 16.0 g/dL LAB HEMETOLOGY METHOD 12/07/2024 7:21 AM EST [facility] Hematocrit 32.0(L) [...] LAB HEMETOLOGY METHOD 12/07/2024 7:21 AM EST [facility] Immature Granulocytes [...] LAB HEMETOLOGY METHOD 12/07/2024 7:21 AM EST [facility] Basophils Absolute 0.06 0.00 - 0.20 K/mcL LAB HEMETOLOGY METHOD 12/07/2024 7:[address] [facility] Immature Granulocytes Absolute 0.60(H) 0.00 - 0.03 K/mcL LAB HEMETOLOGY METHOD 12/07/2024 7:[address] [facility] Blood Venous blood specimen / Unknown Venipuncture / Unknown 12/07/2024 6:02 AM EST 12/07/2024 6:51 AM EST us Milagro WEBBER LAB BLOOD ORDERABLES Final Result [facility] [address] [place] [address], * Folate (12/07/2024 6:02 AM EST) Pathologist [facility] Folate 13.9 2.8 - 17.0 ng/ml LAB CHEMISTRY METHOD 12/07/2024 9:35 AM EST [facility] Blood Venous blood specimen / Unknown Venipuncture / Unknown 12/07/2024 6:02 AM EST 12/07/2024 6:49 AM EST Nuria Marie MD LAB BLOOD ORDERABLES Final Result Performing Organization Address City/[facility]/ZIP Co de Phone Number [facility] [address] [place] [address], [place] [phone] * Vitamin B12 (12/07/2024 6:02 AM EST) [facility] Vitamin B-12 698 250 - 900 pcg/mL LAB CHEMISTRY METHOD 12/07/2024 9:[address] [facility] Blood Venous blood specimen / Unknown Venipuncture / Unknown 12/07/2024 6:02 AM EST 12/07/2024 6:49 AM EST Nuria Marie MD LAB BLOOD ORDERABLES Final Result Performing Organization Address City/[facility] de Phone Number [facility] [address] [place] [address], [place] [phone] * (ABNORMAL) Basic metabolic panel (12/07/2024 6:02 AM EST) Only the most recent of7 resultswithin the time period is included. [facility] Sodium 139 133 - 145 mmol/L LAB CHEMISTRY METHOD 12/07/2024 7:[address] [facility] Potassium 4.5 3.5 - 5.5 mmol/L LAB CHEMISTRY METHOD 12/07/2024 7:57 AM EST [facility] Chloride 96 96 - 110 mmol/L LAB CHEMISTRY METHOD 12/07/2024 7:[address] [facility] CO2 38(H) 21 - 32 mmol/L LAB CHEMISTRY METHOD 12/07/2024 7:57 AM EST [facility] Anion Gap [...] 12/07/2024 7:[address] [facility] Blood Venous blood specimen / Unknown Venipuncture / Unknown 12/07/2024 6:02 AM EST 12/07/2024 6:49 AM EST us Milagro WEBBER LAB BLOOD ORDERABLES Final Result [facility] [address] [place] [address], [place] [phone] * TRANSTHORACIC ECHOCARDIOGRAM (TTE) COMPLETE W/ CONTRAST (12/05/2024 11:01 AM EST) Left Atrium Minor [place] 5.6 cm CV PACS Left Atrium Major [place] 5.5 cm CV PACS LA Area Sys [...] Milagro WEBBER LAB BLOOD ORDERABLES Final Result [facility] [address] [place] [address], [place] [phone] * XR Chest 1 View (12/03/2024 7:33 PM EST) Anatomical Region Laterality Modality Body Radiographic Dahiana ging 12/04/2024 9:28 AM EST Impressions 12/04/2024 9:32 AM EST Impression: 1. Stable right hemidiaphragmatic elevation since 2019. 2. Lungs grossly clear. Telerad AKBAR ([id number]) -------- FINAL REPORT -------- Dictated By: Keiko Dyson Dictated Date: 12/04/2024 09:28 ET Assigned Physician: Keiko Dyson Reviewed and Electronically Signed By: Keiko Dyson Signed Date: 12/04/2024 09:32 ET Workstation ID: [id number] Transcribed By: Self Edit Transcribed Date: 12/04/2024 [...] 2019. 2. Lungs grossly clear. Telelula WEBBER ([id number]) -------- FINAL REPORT -------- Dictated By: Keiko Dyson Dictated Date: 12/04/2024 09:28 ET Assigned Physician: Keiko Dyson Reviewed and Electronically Signed By: Keiko Dyson Signed Date: 12/04/2024 09:32 ET Workstation ID: [id number] Transcribed By: Self Edit Transcribed Date: 12/04/2024 09:28 ET Angelic WEBBER IMG XR PROCEDURES Final Result * ECG 12 lead (12/03/2024 7:00 PM EST) Only the most recent of2 resultswithin the time period is included. Ventricular Rate ECG 101 BPM GEMUSE Atrial Rate 125 BPM GEMUSE QRS Duration 142 ms GEMUSE Q-T Interval 390 ms GEMUSE QTc 505 ms GEMUSE R [place] 79 degrees GEMUSE T [place] 33 degrees GEMUSE ECG Interpretation Atrial fibrillation with rapid ventricular response Right bundle branch block Abnormal ECG When compared with ECG of 01-DEC-2024 09:55, No significant change was found Confirmed by FLORENTIN VANEGAS ([id number]) on 12/04/2024 4:35:43 PM GEMUSE 12/03/2024 7:00 PM EST 12/04/2024 4:35 PM EST Raheel WEBBER ECG ORDERABLES Final Res ult Performing Organization Address [facility]/ZIP Co de Phone Number PAL * Procalcitonin [...] ORDERABLES Sandee l Result Performing Organization Address [facility]/ZIP Co de Phone Number [facility] [address] [place] [address], [place] [phone] * Thyroid stimulating hormone (12/02/2024 9:18 AM EST) TSH 1.95 0.40 - 4.00 mcIU/mL LAB CHEMISTRY METHOD 12/02/2024 11:45 AM EST [facility] Blood Venous blood specimen / Unknown Venipuncture / Unknown 12/02/2024 9:18 AM EST 12/02/2024 9:44 AM EST [facility] LAB BLOOD ORDERABLES Sandee l Result Performing Organization Address City/[facility]/ZIP Co de Phone Number [facility] [address] [place] [address], * Lactate (12/02/2024 9:18 AM EST) Only the most recent of2 resultswithin the time period is included. Lactate 1.4 0.4 - 2.0 mmol/L LAB CHEMISTRY METHOD 12/02/2024 10:08 AM EST [facility] Blood Venous blood specimen / Unknown Venipuncture / Unknown 12/02/2024 9:18 AM EST 12/02/2024 9:45 AM EST [facility] LAB BLOOD ORDERABLES Sandee l Result Performing Organization Address City/[facility]/ZIP Co de Phone Number [facility] [address] [place] [address], * Culture blood (12/01/2024 4:05 PM EST) [...] OR DERABLES Final Result Performing Organization Address City/[facility]/ZIP Co de Phone Number [facility] [address] [place] [address], [place] [phone] * (ABNORMAL) Prothrombin time with INR (12/01/2024 [...] ORDERABLES Final Re sult Performing Organization Address [facility]/ZIP Co de Phone Number [facility] [address] [place] [address], [place] [phone] * (ABNORMAL) B-type natriuretic peptide (12/01/2024 2:57 PM EST) Pathologist [facility] BNP 542(H) <=100 pcg/mL LAB CHEMISTRY METHOD 12/01/2024 3:42 PM EST [facility] Blood Venous blood specimen / Unknown Venipuncture / Unknown 12/01/2024 2:57 PM EST 12/01/2024 3:02 PM EST Giovana WEBBER LAB BLOOD ORDERABLES Final Re sult [facility] [address] [place] [address], [place] [phone] * CT Angio Chest wo and/or w [...] Signed Date: 12/01/2024 11:56 ET Workstation ID: [id number] Transcribed By: Self Edit Transcribed Date: 12/01/2024 [...] Signed Date: 12/01/2024 11:56 ET Workstation ID: [id number] Transcribed By: Self Edit Transcribed Date: 12/01/2024 11:53 ET Ailyn WEBBER IMG CT PROCEDURES Final Resul t * Troponin I high sensitivity (12/01/2024 10:12 AM EST) High Sensitivity Troponin I 7 <=54 ng/L LAB CHEMISTRY METHOD 12/01/2024 11:03 AM EST [facility] Blood Venous blood specimen / Unknown Venipuncture / Unknown 12/01/2024 10:12 AM EST 12/01/2024 10:30 AM EST [facility] - 12/01/2024 11:03 AM EST High levels of biotin in samples may falsely decrease hsTroponin values. ??Use caution when interpreting hsTroponin results in patients taking biotin who exhibit renal impairment (eGFR <60) or in patients taking more than 20 mg/day of biotin. Josh Carranza MD LAB BLOOD ORDERABLES Final Result Performing Organization Address City/[facility]/ZIP Co de Phone Number [facility] [address] [place] [address], [place] [phone] * Vitamin B12 and folate (12/01/2024 10:12 AM EST) [facility] Vitamin B-12 468 250 - 900 pcg/mL LAB CHEMISTRY METHOD 12/01/2024 4:[address] [facility] Folate 10.4 2.8 - 17.0 ng/ml LAB CHEMISTRY METHOD 12/01/2024 4:[address] [facility] Blood Venous blood specimen / Unknown Venipuncture / Unknown 12/01/2024 10:12 AM EST 12/01/2024 10:30 AM EST Giovana WEBBER LAB BLOOD ORDERABLES Final Re sult Performing Organization Address [facility]/ZIP Co de Phone Number [facility] [address] [place] [address], [place] [phone] * (ABNORMAL) Manual differential (12/01/2024 10:12 AM EST) [facility] Neutrophils % 90.0 % LAB HEMETOLOGY [...] AM EST [facility] Lymphocytes Absolute [...] Present( A) Consistent with indices, Normal for [place] LAB HEMETOLOGY METHOD 12/01/2024 11:[address] [facility] Comment:RBC: Morphology agre es with CBC Platelet Morphology - WAM See Note(A) Normal LAB HEMETOLOGY METHOD 12/01/2024 11:[address] [facility] Comment:PLT: Normal Polychromasia Present Present( A) (none) LAB HEMETOLOGY METHOD 12/01/2024 11:[address] [facility] Blood Venous blood specimen / Unknown Venipuncture / Unknown 12/01/2024 10:12 AM EST 12/01/2024 10:30 AM EST us Ailyn WEBBER LAB BLOOD ORDERABLES Final Re sult [facility] [address] [place] [address], * (ABNORMAL) Iron and TIBC (12/01/2024 10:12 AM EST) [facility] Iron 19(L) 40 - 150 mcg/dL LAB CHEMISTRY METHOD 12/01/2024 2:49 PM EST [facility] TIBC 428 250 - 450 mcg/dL LAB CHEMISTRY METHOD 12/01/2024 2:[address] [facility] Iron Saturation 4(L) 15 - 50 % LAB CHEMISTRY METHOD 12/01/2024 2:[address] [facility] Blood Venous blood specimen / Unknown Venipuncture / Unknown 12/01/2024 10:12 AM EST 12/01/2024 10:30 AM EST Giovana WEBBER LAB BLOOD ORDERABLES Final Re sult Performing Organization Address [facility]/ZIP Co de Phone Number [facility] [address] [place] [address], [place] [phone] * Ferritin (12/01/2024 10:12 AM EST) [facility] Ferritin 31 8 - 252 ng/mL LAB CHEMISTRY METHOD 12/01/2024 3:[address] [facility] Blood Venous blood specimen / Unknown Venipuncture / Unknown 12/01/2024 10:12 AM EST 12/01/2024 10:30 AM EST Giovana WEBBER LAB BLOOD ORDERABLES Final Re sult Performing Organization Address City/[facility]/ZIP Co de Phone Number [facility] [address] [place] [address], [place] [phone] * Hepatic function panel (12/01/2024 10:12 AM EST) [facility] Total Protein 6.5 6.0 - 8.0 g/dL LAB CHEMISTRY METHOD 12/01/2024 2:[address] [facility] Albumin 3.3 3.2 - 5.0 g/dL LAB CHEMISTRY METHOD 12/01/2024 2:37 PM EST [facility] Total Bilirubin 0.5 0.0 - 1.4 mg/dL LAB CHEMISTRY METHOD 12/01/2024 2:[address] [facility] Bilirubin, Direct 0.1 0.0 - 0.3 mg/dL LAB CHEMISTRY METHOD 12/01/2024 2:[address] [facility] Bilirubin, Indirect 0.4 0.0 - 1.1 mg/dL LAB CHEMISTRY METHOD 12/01/2024 2:[address] [facility] ALT (SGPT) 21 10 - 60 unit/L LAB CHEMISTRY METHOD 12/01/2024 2:[address] [facility] AST (SGOT) 12 10 - 42 unit/L LAB CHEMISTRY METHOD 12/01/2024 2:[address] [facility] Alkaline Phosphatase 68 42 - 121 unit/L LAB CHEMISTRY METHOD 12/01/2024 2:[address] [facility] Blood Venous blood specimen / Unknown Venipuncture / Unknown 12/01/2024 10:12 AM EST 12/01/2024 10:30 AM EST us Giovana WEBBER LAB BLOOD ORDERABLES Final Re sult [facility] [address] [place] [address], * (ABNORMAL) Respiratory virus panel molecular study [...] 11:[address] [facility] Bordetella parapertussis Not Detected Not Detected LAB MICROBIOLOGY METHOD 12/01/2024 11:[address] [facility] Mycoplasma pneumo by PCR Not Detected Not Detected LAB MICROBIOLOGY METHOD 12/01/2024 11:[address] [facility] Chlamydia pneumoniae Not Detected Not Detected LAB MICROBIOLOGY METHOD 12/01/2024 11:[address] [facility] SARS COV-2 Detected(A ) Not Detected LAB MICROBIOLOGY METHOD 12/01/2024 11:43 AM EST [facility] Swab Both anterior nares / Unknown Non-blood Collection / Unknown 12/01/2024 10:06 AM EST 12/01/2024 10:13 AM EST Narrative [facility] - 12/01/2024 11:43 AM EST Testing was performed using the [employer] Respiratory Pathogen PCR Assay. All results must [...] MICROBIOLOGY - GENERAL OR DERABLES Final Result [facility] [address] [place] [address], * ECG-Outside (12/01/2024) Only the most recent [...] currently active code status orders. Care Teams Email Campaign Manager Relationship Specialty Start Date End Date Amita Ruiz MD [address] [place] [phone] PCP - General Internal Medicine 10/13/24
--- OUTSIDE RECORDS SUMMARY | 2025-01-30 10:07 | XMS_ITS | Encounter Summary ---
Author Organization [facility] Address [address] [place] [address] Care Team Providers Care Decorating Inspector Name Role Phone Amita Ruiz MD Primary Care Provider [phone] Encounter Details Date Type Department Care Team (Latest Contact Info) Description 01/01/2025 8:28 AM EST - 01/01/2025 11:59 PM EST Hospital Encounter [facility] Radiation Oncology [address] [phone] Discharge Disposition: Home or Self [...] Appointment [facility] Radiation Oncology [address] [phone] Arabella King NP [address] [place] [address] documented as of this encounter Procedures Procedure [...] on filedocumented in this encounter Care Teams Decorating Inspector Relationship Specialty Start Date End Date Amita Ruiz MD [address] [place] [phone] PCP - General Internal Medicine 10/13/24 documented as of this encounter
== END 2025-01-30 09:40 | disposition home or self-care (01) ==
PROVIDERS: PCP Internal Medicine; Visit Provider Surgery
DX: C50.911 Malignant neoplasm of unspecified site of right female breast (principal)
CPT/HCPCS: 99213

== ENCOUNTER 2025-02-05 09:47 | Outpatient (AMB) | payer MEDICAID, SELFPAY ==
[2025-02-05 09:58] VITALS: BP 128/68; PULSE 79; O2SAT 97; BMI 51.1
--- NOTE | 2025-02-05 09:58 | A.OFFVIS_ITS ---
Vital Signs 02/05/25 09:58 Height 5 ft 1 in Weight 270 lb 6 oz BMI 51.1 BP 128/68 Blood Pressure Location Lt brachial Position Sitting Pulse 79 Pulse Source Pulse Oximeter Pulse Oximetry (%) 97 Oxygen Delivery Method Nasal Cannula Intake Visit Reasons: I-HUB ASSOCIATE: QAMAR Intake Note: Patient presents for inpatient referral for QAMAR. Patient is not using her CPAP machine, although she says she has 1 at home from several years ago. She is requesting to be fitted again for CPAP, with an adapter for her oxygen supplement. We referred her to sleep Medicine but patient had to cancel her appointment due to being hospitalized. Patient will follow up again with the office. Emphasized the importance of adhering to CPAP therapy to manage her sleep apnea. Previous seen mavis back in 2021. looking to try different nasal piece for CPAP(as why she is not using) Allergies erythromycin base Allergy (Intermediate, Verified 02/05/25 10:08) Abdominal Pain lisinopril Allergy (Intermediate, Verified 02/05/25 10:08) Rash HPI Comments Details: 64 year old female with AFIb presents for a sleep evaluation. She has AFib and is scheduled for an ablation procedure, on amiodarone and diltiazem for rate control, and on 2 L NC O2. She goes to sleep in her recliner and gasps for air, she has witnessed apneas and snores when she is laying flat. She has RLS, uncomfortable feeling in both feet which resolves when she moves her feet, and it keeps her up at night, she denies numbness, tingling, cramps or pain. She had a ductal carcinoma, lumpectomy and is on Letrozole. She discontinued use of her nose mask and cpap due to claustrophobic episodes years ago, and now needs a nasal mask to start using CPAP as patient is more comfortable using the Nasal cannula. Knee pain bilateral however will see weight management, after cardiology and pulmonology f/u. She is being followed for oncology and will start iron infusion for anemia. Her memory, and mood is good. [facility] Medical History (HFpEF) heart failure with preserved ejection fraction Arthritis HX: breast cancer SOB (shortness of breath) On anticoagulant therapy Invasive ductal carcinoma of right breast in female A-fib Hypothyroid Osteoporosis Urethral stenosis Depression with anxiety Thyroid cancer Acid reflux Kidney stone QAMAR (obstructive sleep apnea) Hypertension Knee pain, left Surgical History History of lumpectomy of right breast (09/20/24) Hx of dilation of urethra Hx of cystoscopy H/O colonoscopy History of partial hysterectomy History of thyroidectomy Family History Mother Lung cancer Father HTN (hypertension) Melanoma Social History Household Members: Spouse Housing: House Are you a primary career placement specialist to a significant other at home: No Do you presently have visiting nurse or other home services: No Alcohol intake: current Alcohol intake frequency: does not drink Patient Tobacco Use Status: Never used Tobacco e-Cigarette/Vaping Use: Never Used service: No Current occupational status: unemployed Current occupation: right handed Cognitive needs: No Hearing needs: No Vision needs: Yes Female Reproductive History Menstrual Age of Menarche: 13 Physical Exam Vital Signs: Last Vital Signs Pulse 79 02/05/25 09:58 BP 128/68 02/05/25 09:58 Pulse Ox 97 02/05/25 09:58 Oxygen Delivery Method Nasal Cannula 02/05/25 09:58 BMI result Body Mass Index 51.1 Const General: cooperative and comfortable Nutritional Appearance: obese Orientation/consciousness: patient oriented x3 HEENT Face and sinus: Yes normal facial exam and Yes face symmetric Throat: Yes other ([place] score is 4) Eyes Pupils: Equal, round and reactive pupils present Neck Neck: Yes full ROM and Yes supple Resp Effort & Inspection: normal respiratory effort and able to speak in complete sentences Neuro General: patient oriented x3 and moves all extremities Cranial nerves: Yes CN's II-XII intact bilaterally, Yes Facial sensation intact/muscles of mastication intact, Yes Equal, round and reactive pupils present, Yes Normal accommodation reflex present, Yes Bilaterally intact EOM present, Yes Nystagmus not present, Yes Normal facial strength present, Yes Midline tongue present, Yes Ability to bilaterally rotate head present and Yes Ability to bilaterally elevate shoulders present Gait exam (Neuro): Normal gait present Motor exam (neuro): 5/5 motor strength present throughout and Normal motor muscle tone present throughout Deep tendon reflexes (DTR's): Right triceps reflex intensity grade: 2+, Left triceps reflex intensity grade: 2+, Rt Biceps (C5, C6): 2+, Left biceps reflex intensity grade: 2+, Right brachioradialis reflex intensity grade: 2+, Left brachioradialis reflex intensity grade: 2+, Right patellar reflex intensity grade: 2+ and Left patellar reflex intensity grade: 2+ Psych Appearance: grossly normal Thought process: Normal thought process present Thought content: Normal thought content present Results Reviewed Results Reviewed: Labs Assessment & Plan Assessment & Plan (1) Witnessed apneic spells: Code(s): R06.81 - Apnea, not elsewhere classified Category: Medical (2) Joint pain in fingers of both hands: Code(s): M25.541 - Pain in joints of right hand; M25.542 - Pain in joints of left hand Category: Medical (3) Anemia: Code(s): D64.9 - Anemia, unspecified Category: Medical Qualifiers: Anemia type: iron deficiency Iron deficiency anemia type: other iron deficiency Qualified Code(s): D50.8 - Other iron deficiency anemias (4) Swelling of both lower extremities: Code(s): M79.89 - Other specified soft tissue disorders Category: Medical (5) Morbid obesity: Code(s): E66.01 - Morbid (severe) obesity due to excess calories Category: Medical (6) Obstructive sleep apnea: Code(s): G47.33 - Obstructive sleep apnea (adult) (pediatric) Category: Medical (7) Snoring: Code(s): R06.83 - Snoring Category: Medical (8) Excessive daytime sleepiness: Code(s): G47.19 - Other hypersomnia Category: Medical Plan PSG to evaluate apnea. Rheumatology joint pain Sleep Hygiene provided Weight management once sleep is evalauted. Orders: Orders RT PSG in-lab sleep study Today R06.81 - Apnea, not elsewhere classified Referrals Rheumatology Referral M25.541 - Pain in joints of right hand, M25.542 - Pain in joints of left hand Patient Instructions: Sleep Hygiene provided, sleep in a cold dark room with temperatures below 68 degrees, no devices in bed, limit fluids 2-4 hours prior to bedtime. Rheumatology f/u In lab Sleep study to evaluate the severity of sleep apnea. Coding Level of Care Code New Pt Level 4 (42587) Diagnoses Witnessed apneic spells R06.81 Joint pain in fingers of both hands M25.541; M25.542 Other iron deficiency anemia D50.8 Anemia type: iron deficiency Iron deficiency anemia type: other iron deficiency Swelling of both lower extremities M79.89 Morbid obesity E66.01 Obstructive sleep apnea G47.33 Snoring R06.83 Excessive daytime sleepiness G47.19 Sleep Questionnaire Difficulty falling asleep: No Difficulty staying asleep?: No Number of arousals: 2 Snoring: No Witnessed apneas: Yes Gasping arousals: Yes Nocturia: Yes GERD: No Vivid dreams: No Acting out dreams: No Abnormal behavior in sleep: Yes (talking moving) Abnormal movements in sleep: No Morning headaches: Yes Excessive daytime sleepiness: Yes Daytime naps: Yes (15-20 min daily 4 naps) Restless legs: Yes (has to move them to be relieved) Hallucinations: No Sleep paralysis: No Drop attacks: No Sleep Study: Yes (hst couldnt tolerate mask wants nasal canula ) CPAP: Yes
--- OUTSIDE RECORDS SUMMARY | 2025-02-05 10:42 | XMS_ITS | Encounter Summary ---
Author Organization [facility] Address [address] [place] [address] Care Team Providers Care Linux Unix Administrator Name Role Phone Amita Ruiz MD Primary Care Provider [phone] Encounter Details Date Type Department Care Team (Latest Contact Info) Description 01/16/2025 8:24 AM EST - 01/16/2025 11:59 PM EST Hospital Encounter [facility] Radiation Oncology [address] [phone] Discharge Disposition: Home or Self [...] Info) Description 02/13/2025 11:30 AM EDT Appointment [facility] Radiation Oncology [address] [phone] Arabella King NP [address] [place] [address] documented as of this encounter Procedures Procedure [...] on filedocumented in this encounter Care Teams Linux Unix Administrator Relationship Specialty Start Date End Date Amita Ruiz MD [address] [place] [address] PCP - General Internal Medicine 10/13/24 documented as of this encounter
--- OUTSIDE RECORDS SUMMARY | 2025-02-05 10:42 | XMS_ITS | Encounter Summary ---
Author Organization [facility] Address [address] [place] [address] Care Team Providers Care Rotary Drum Dyer Name Role Phone Amita Ruiz MD Primary Care Provider [phone] Encounter Details Date Type Department Care Team (Latest Contact Info) Description 01/09/2025 8:26 AM EST - 01/09/2025 11:59 PM EST Hospital Encounter [facility] Radiation Oncology [address] [phone] Discharge Disposition: Home or Self [...] Info) Description 02/13/2025 11:30 AM EDT Appointment [facility] Radiation Oncology [address] [phone] Arabella King NP [address] [place] [address] documented as of this encounter Procedures Procedure [...] on filedocumented in this encounter Care Teams Rotary Drum Dyer Relationship Specialty Start Date End Date Amita Ruiz MD [address] [place] [address] PCP - General Internal Medicine 10/13/24 documented as of this encounter
--- OUTSIDE RECORDS SUMMARY | 2025-02-05 10:42 | XMS_ITS | Encounter Summary ---
Author Organization [facility] Address [address] [place] [address] Care Team Providers Care Ferry Captain Name Role Phone Amita Ruiz MD Primary Care Provider [phone] Encounter Details Date Type Department Care Team (Latest Contact Info) Description 01/08/2025 8:46 AM EST - 01/08/2025 11:59 PM EST Hospital Encounter [facility] Radiation Oncology [address] [phone] Discharge Disposition: Home or Self [...] Info) Description 02/13/2025 11:30 AM EDT Appointment [facility] Radiation Oncology [address] [phone] Arabella King NP [address] [place] [address] documented as of this encounter Procedures Procedure [...] on filedocumented in this encounter Care Teams Ferry Captain Relationship Specialty Start Date End Date Amita Ruiz MD [address] [place] [address] PCP - General Internal Medicine 10/13/24 documented as of this encounter
--- OUTSIDE RECORDS SUMMARY | 2025-02-05 10:42 | XMS_ITS | Encounter Summary ---
Author Organization [facility] Address [address] [place] [address] Care Team Providers Care Director Banking Name Role Phone Amita Ruiz MD Primary Care Provider [phone] Encounter Details Date Type Department Care Team (Latest Contact Info) Description 01/11/2025 2:03 PM EST - 01/11/2025 11:59 PM EST Hospital Encounter [facility] Radiation Oncology [address] [phone] Discharge Disposition: Home or Self [...] [facility] On[facility] [address] [phone] Arabella King NP [address] [place] [address] documented as of this encounter Procedures Procedure [...] filedocumented in this encounter Care Teams Director Banking Relationship Specialty Start Date End Date Amita Ruiz MD [address] [place] [address] PCP - General Internal Medicine 10/13/24 documented as of this encounter
--- OUTSIDE RECORDS SUMMARY | 2025-02-05 10:42 | XMS_ITS | Encounter Summary ---
Author Organization [facility] Address [address] [place] [address] Care Team Providers Care Policyholder Information Clerk Name Role Phone Amita Ruiz MD Primary Care Provider [phone] Encounter Details Date Type Department Care Team (Latest Contact Info) Description 01/05/2025 8:27 AM EST - 01/05/2025 11:59 PM EST Hospital Encounter [facility] Radiation Oncology [address] [phone] Discharge Disposition: Home or Self [facility] [address] [phone] Arabella King NP [address] [place] [address] documented as of this encounter Procedures Procedure [...] on filedocumented in this encounter Care Teams Policyholder Information Clerk Relationship Specialty Start Date End Date Amita Ruiz MD [address] [place] [address] PCP - General Internal Medicine 10/13/24 documented as of this encounter
--- OUTSIDE RECORDS SUMMARY | 2025-02-05 10:42 | XMS_ITS | Encounter Summary ---
Author Organization [facility] Address [address] [place] [address] Care Team Providers Care Foreign Exchange Position Clerk Name Role Phone Amita Ruiz MD Primary Care Provider [phone] Encounter Details Date Type Department Care Team (Latest Contact Info) Description 01/12/2025 8:29 AM EST - 01/12/2025 11:59 PM EST Hospital Encounter [facility] Radiation Oncology [address] [phone] Discharge Disposition: Home or [...] [facility] Radiation Oncology [address] [phone] Arabella King NP [address] [place] [address] documented as of this encounter Procedures Procedure [...] on filedocumented in this encounter Care Teams Foreign Exchange Position Clerk Relationship Specialty Start Date End Date Amita Ruiz MD [address] [place] [address] PCP - General Internal Medicine 10/13/24 documented as of this encounter
--- OUTSIDE RECORDS SUMMARY | 2025-02-05 10:42 | XMS_ITS | Encounter Summary ---
Author Organization [facility] Address [address] [place] [address] Care Team Providers Care Specialty Finishing Utility Person Name Role Phone Amita Ruiz MD Primary Care Provider [phone] Encounter Details Date Type Department Care Team (Latest Contact Info) Description 01/10/2025 8:36 AM EST - 01/10/2025 11:59 PM EST Hospital Encounter [facility] Radiation Oncology [address] [phone] Discharge Disposition: Home or Self [...] [facility] Radiation Oncology [address] [phone] Arabella King NP [address] [place] [address] documented as of this encounter Procedures Procedure [...] on filedocumented in this encounter Care Teams Specialty Finishing Utility Person Relationship Specialty Start Date End Date Amita Ruiz MD [address] [place] [address] PCP - General Internal Medicine 10/13/24 documented as of this encounter
--- OUTSIDE RECORDS SUMMARY | 2025-02-05 10:42 | XMS_ITS ---
Author Organization [facility] Address [address] [place] [address] Care Team Providers Care Tile Edger Name Role Phone Amita Ruiz MD Primary Care Provider Arie Eduardo Jr [phone] REASON FOR VISIT Xarelto Encounters Encounter Location Date Provider Diagnosis [facility] [address] [place] [phone] 09/22/2023 Arie Last Jr Plan Of Treatment No Information Progress Notes * LIBBYRAJOB:1960 ( 63 yo F)Acc No.[id number]:09/22/2023 Patient:?TIFFANY SOUZA :1960???Age:63 Y???Sex:Female Address:[address] [place] [address], [address] * true * Date:? Generated for [place] al/Nu/eTransmitting on:?02/05/2025 10:42 AM EDT
--- OUTSIDE RECORDS SUMMARY | 2025-02-05 10:42 | XMS_ITS | Encounter Summary ---
Author Organization [facility] Address [address] [place] [address] Care Team Providers Care Log Preparer Name Role Phone Amita Ruiz MD Primary Care Provider [phone] Encounter Details Date Type Department Care Team (Latest Contact Info) Description 01/15/2025 8:25 AM EST - 01/15/2025 11:59 PM EST Hospital Encounter [facility] Radiation Oncology [address] [phone] Discharge Disposition: Home or Self [...] [facility] Radiation Oncology [address] [phone] Arabella King NP [address] [place] [address] documented as of this encounter Procedures Procedure [...] on filedocumented in this encounter Care Teams Log Preparer Relationship Specialty Start Date End Date Amita Ruiz MD [address] [place] [address] PCP - General Internal Medicine 10/13/24 documented as of this encounter
--- OUTSIDE RECORDS SUMMARY | 2025-02-05 10:42 | XMS_ITS | Encounter Summary ---
Author Organization [facility] Address [address] [place] [address] Care Team Providers Care Visual Education Director Name Role Phone Amita Ruiz MD Primary Care Provider [phone] Reason for Visit * Reason Comments OTV Encounter Details Date Type Department Care Team (Latest Contact Info) Description 01/05/2025 8:46 AM EST - 01/05/2025 11:59 PM EST Hospital Encounter [facility] Radiation Oncology [address] [phone] Radha Bourgeois MD [address] [place] [address] Malignant neoplasm of upper-outer quadrant of right [...] Bourgeois MD - 01/05/2025 9:10 AM EST [address] [phone] Radiation Oncology On Treatment Visit Patient Name: [...] Stage IA (pT1c, pN0, cM0, G1, ER+, NC+, HER2-) - Signed by Radha Bourgeois MD on 11/09/2024 Diagnosis: Right breast (UOQ) invasive ductal carcinoma, ER/NC positive, Her2 negative 09/20/24 --right breast Lumpectomy with Dr. Crenshaw. Low Oncotype per pt Oct 2024 - started Letrozole Interval/Dose History: 3D VALUE ADVISOR: Right Breast Treatment Period Technique Fraction Dose [...] had treatment break due to admission at [facility] due to leg swelling. Mild fungal reaction in right axilla: just started OTC antifungal powder, pt to continue. Will be due for mammogram in Jun 2025. No orders of the defined types were placed in this encounter. documented in this encounter Plan of Treatment Upcoming Encounters Date Type Department Care Team (Late st Contact Info) Description 02/13/2025 11:30 AM EDT Appointment [facility] Radiation Oncology [address] [phone] Arabella King NP [address] [place] [address] documented as of this encounter Visit Diagnoses [...] day. added in this encounter Care Teams Visual Education Director Relationship Specialty Start Date End Date Amita Ruiz MD [address] [facility] [place] [address] PCP - General Internal Medicine 10/13/24 documented as of this encounter
--- OUTSIDE RECORDS SUMMARY | 2025-02-05 10:42 | XMS_ITS | Encounter Summary ---
Author Organization [facility] Address [address] [place] [address] Care Team Providers Care Children'S Entertainer Name Role Phone Amita Riuz MD Primary Care Provider [phone] Reason for Visit * Reason Comments OTV Encounter Details Date Type Department Care Team (Latest Contact Info) Description 01/12/2025 8:52 AM EST - 01/12/2025 11:59 PM EST Hospital Encounter [facility] Radiation Oncology [address] [phone] Radha Bourgeois MD [address] [place] [address] Malignant neoplasm of upper-outer quadrant of right [...] Bourgeois MD - 01/12/2025 9:10 AM EST [address] [phone] Radiation Oncology On Treatment Visit Patient Name: [...] Stage IA (pT1c, pN0, cM0, G1, ER+, OR+, HER2-) - Signed by Radha Bourgeois MD on 11/09/2024 Diagnosis: Right breast (UOQ) invasive ductal carcinoma, ER/OR positive, Her2 negative 09/20/24 --right breast Lumpectomy with Dr. Crenshaw. Low Oncotype per pt Oct 2024 - started Letrozole Interval/Dose History: 3D WAREHOUSE CLERK: Right Breast Treatment Period Technique Fraction Dose [...] had treatment break due to admission at [facility] due to leg swelling. Mild fungal [...] Appointment [facility] Radiation Oncology [address] [phone] Arabella King NP [address] [place] [address] documented as of this encounter Visit Diagnoses [...] min. added in this encounter Care Teams Children'S Entertainer Relationship Specialty Start Date End Date Amita Ruiz MD [address] [place] [address] PCP - General Internal Medicine 10/13/24 documented as of this encounter
--- OUTSIDE RECORDS SUMMARY | 2025-02-05 10:42 | XMS_ITS ---
Author Organization [facility] Address [address] [place] [address] Care Team Providers Care Senior Case Manager Name Role Phone Amita Ruiz MD Primary Care Provider Arie Eduardo Jr REASON FOR VISIT pathology Encounters Encounter Location Date Provider Diagnosis [facility] [address] [place] [phone] 11/04/2023 Arie Last Jr Plan Of Treatment No Information Progress Notes * LIBBYRAJOB:1960 ( 63 yo F)Acc No.[id number]:11/04/2023 Patient:?TIFFANY SOUZA :1960???Age:63 Y???Sex:Female Address:[address] [place] [address], [address] * true * Date:? Generated for Janie melendez/Nu/eTransmitting on:?02/05/2025 10:42 AM EDT
--- OUTSIDE RECORDS SUMMARY | 2025-02-05 10:43 | XMS_ITS | Clinical Summary ---
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 Name Role Phone Amita Ruiz MD Primary Care Provider [phone] Allergies Active Allergy Reactions Criticality Noted Date [...] - 01/16/2025 11:59 PM EST Hospital Encounter [facility] [address] [place] [phone] Arabella King NP Malignant neoplasm of upper-outer quadrant of right breast in female, estrogen receptor positive (CMS/HCC) (Primary Dx) Discharge Disposition: Home or Self Care 01/16/2025 8:24 AM EST - 01/16/2025 11:59 PM EST Hospital Encounter [facility] [address] [place] [phone] Discharge Disposition: Home or Self Care 01/15/2025 8:25 AM EST - 01/15/2025 11:59 PM EST Hospital Encounter [facility] [address] [place] [phone] Discharge Disposition: Home or Self Care 01/12/2025 8:52 AM EST - 01/12/2025 11:59 PM EST Hospital Encounter [facility] [address] [place] [phone] Radha Bourgeois MD Malignant neoplasm of upper-outer quadrant of right breast in female, estrogen receptor positive (CMS/HCC) (Primary Dx) Discharge Disposition: Home or Self Care 01/12/2025 8:29 AM EST - 01/12/2025 11:59 PM EST Hospital Encounter [facility] [address] [place] [phone] Discharge Disposition: Home or Self Care 01/11/2025 2:03 PM EST - 01/11/2025 11:59 PM EST Hospital Encounter [facility] [address] [place] [phone] Discharge Disposition: Home or Self Care 01/10/2025 8:36 AM EST - 01/10/2025 11:59 PM EST Hospital Encounter [facility] [address] [place] [phone] Discharge Disposition: Home or Self Care 01/09/2025 8:26 AM EST - 01/09/2025 11:59 PM EST Hospital Encounter [facility] [address] [place] [phone] Discharge Disposition: Home or Self Care 01/08/2025 8:46 AM EST - 01/08/2025 11:59 PM EST Hospital Encounter [facility] [address] [place] [phone] Discharge Disposition: Home or Self Care 01/05/2025 8:46 AM EST - 01/05/2025 11:59 PM EST Hospital Encounter [facility] [address] [place] [phone] Radha Bourgeois MD Malignant neoplasm of upper-outer quadrant of right breast in female, estrogen receptor positive (CMS/HCC) (Primary Dx) Discharge Disposition: Home or Self Care 01/05/2025 8:27 AM EST - 01/05/2025 11:59 PM EST Hospital Encounter [facility] [address] [place] [phone] Discharge Disposition: Home or Self Care 01/04/2025 8:57 AM EST - 01/04/2025 11:59 PM EST Hospital Encounter [facility] [address] [place] [phone] Discharge Disposition: Home or Self Care 01/03/2025 8:32 AM EST - 01/03/2025 11:59 PM EST Hospital Encounter [facility] [address] [place] [phone] Discharge Disposition: Home or Self Care 01/02/2025 8:47 AM EST - 01/02/2025 11:59 PM EST Hospital Encounter [facility] [address] [place] [phone] Discharge Disposition: Home or Self Care 01/01/2025 8:28 AM EST - 01/01/2025 11:59 PM EST Hospital Encounter [facility] [address] [place] [phone] Discharge Disposition: Home or Self Care 12/21/2024 8:35 AM EST - 12/21/2024 11:59 PM EST Hospital Encounter [facility] [address] [place] [phone] Discharge Disposition: Home or Self Care 12/20/2024 8:41 AM EST - 12/20/2024 11:59 PM EST Hospital Encounter [facility] [address] [place] [phone] Discharge Disposition: Home or Self Care 12/19/2024 8:52 AM EST - 12/19/2024 11:59 PM EST Hospital Encounter [facility] [address] [place] [phone] Discharge Disposition: Home or Self Care 12/18/2024 11:15 AM EST - 12/18/2024 11:59 PM EST Hospital Encounter [facility] [address] [place] [phone] Pari Martinez MD Discharge Disposition: Home or Self Care 12/18/2024 10:53 AM EST - 12/18/2024 11:59 PM EST Hospital Encounter [facility] [address] [place] [phone] Discharge Disposition: Home or Self Care 12/01/2024 11:09 AM EST - 12/01/2024 11:59 PM EST Hospital Encounter [facility] [address] [place] [phone] Discharge Disposition: Home or Self Care 12/01/2024 9:30 AM EST - 12/07/2024 4:56 PM EST Hospital Encounter [facility] [address] [place] [phone] Josh Carranza MD Kela, Kashyap Devendrabhai, MD Rasul, Yar M, MD Surendran, Anupama, MD COVID (Primary Dx); Peripheral edema Discharge Disposition: Home-Health Care [facility] [place] 12/01/2024 Telephone [facility] [address] [place] [phone] Hyacinth Pinzon, BAO has covid 11/16/2024 10:00 AM EST - 11/16/2024 11:59 PM EST Hospital Encounter [facility] [address] [place] [phone] Radha Bourgeois MD Malignant neoplasm of right breast in female, estrogen receptor positive, unspecified site of breast (CMS/HCC) Discharge Disposition: Home or Self Care 11/16/2024 9:13 AM EST - 11/16/2024 11:59 PM EST Hospital Encounter [facility] [address] [place] [phone] Malignant neoplasm of upper-outer quadrant of right breast in female, estrogen receptor positive (CMS/HCC) (Primary Dx) Discharge Disposition: Home or Self Care 11/09/2024 12:49 PM EST - 11/09/2024 11:59 PM EST Hospital Encounter [facility] [address] [place] [phone] Radha Bourgeois MD Malignant neoplasm of upper-outer quadrant of right breast in female, estrogen receptor positive (CMS/HCC) (Primary Dx); Malignant neoplasm of right breast in female, estrogen receptor positive, unspecified site of breast (CMS/HCC) Discharge Disposition: Home or Self Care 11/09/2024 12:36 PM EST - 11/09/2024 11:59 PM EST Hospital Encounter [facility] [address] [place] [phone] Discharge Disposition: Home or Self Care from [...] Info) Description 02/13/2025 11:30 AM EDT Appointment [facility] [address] [phone] Arabella King NP [address] [place] [address] Health Maintenance Due Date Last Done Comments [...] GY ORDERABLES Final Result Performing Organization Address City/[facility] Co de Phone Number MOS[facility] RADIATION [...] GY ORDERABLES Final Result Performing Organization Address City/[facility]/ZIP Co de Phone Number MOSAIQ RADIATION [...] GY ORDERABLES Final Result Performing Organization Address City/[facility]/ZIP Co de Phone Number MOSAIQ RADIATION [...] Summary (12/18/2024 11:20 AM EST) Pathologist [facility] Treatment Site Right Breast MO SAIQ RADIATION [...] GY ORDERABLES Final Result Performing Organization Address City/[facility] Co de Phone Number [facility] RADIATION ONCOLOGY * (ABNORMAL) CBC auto differential (12/07/2024 6:02 AM EST) Only the most recent of7 resultswithin the time period is included. WBC 15.5(H) 4.8 - 10.8 K/mcL LAB HEMETOLOGY METHOD 12/07/2024 7:21 AM EST [facility] RBC 3.30(L) 3.80 - 4.80 M/[facility] LAB HEMETOLOGY METHOD 12/07/2024 7:21 AM EST [facility] Hemoglobin 9.3(L) 11.5 - 16.0 g/dL LAB HEMETOLOGY METHOD 12/07/2024 7:21 AM EST [facility] Hematocrit 32.0(L) 35.0 - 47.0 % LAB HEMETOLOGY METHOD 12/07/2024 7:21 AM [facility] MCV 97.6 79.0 - 98.0 FL LAB HEMETOLOGY METHOD 12/07/2024 7:21 AM [facility] MCH 28.4 27.0 - 32.0 pcg LAB HEMETOLOGY METHOD 12/07/2024 7:21 AM [facility] MCHC 29.1(L) 32.0 - 37.0 g/dL LAB HEMETOLOGY METHOD 12/07/2024 7:21 AM [facility] RDW 18.9(H) 11.0 - 15.0 % LAB HEMETOLOGY METHOD 12/07/2024 7:21 AM [facility] Platelets 390 130 - 400 K/mcL LAB HEMETOLOGY METHOD 12/07/2024 7:21 AM [facility] MPV 10.0 7.0 - 11.0 FL LAB HEMETOLOGY METHOD 12/07/2024 7:21 AM [facility] NRBC 0.5 <1.0 % LAB HEMETOLOGY METHOD 12/07/2024 7:21 AM [facility] NRBC Absolute 0.07 <0.10 K/mcL LAB HEMETOLOGY METHOD 12/07/2024 7:21 AM [facility] Neutrophils Relative 74.5 % LAB HEMETOLOGY METHOD 12/07/2024 7:21 AM [facility] Lymphocytes Relative 13.6 % LAB HEMETOLOGY METHOD 12/07/2024 7:21 AM [facility] Monocytes Relative 7.6 % LAB HEMETOLOGY METHOD 12/07/2024 7:21 AM [facility] Eosinophils Relative 0.0 % LAB HEMETOLOGY METHOD 12/07/2024 7:21 AM [facility] Basophils Relative 0.4 % LAB HEMETOLOGY METHOD 12/07/2024 7:21 AM EST [facility] Immature Granulocytes Relative 3.9 % LAB HEMETOLOGY METHOD 12/07/2024 7:21 AM [facility] Neutrophils Absolute 11.53(H) 1.50 - 7.00 K/mcL LAB HEMETOLOGY METHOD 12/07/2024 7:21 AM [facility] Lymphocytes Absolute 2.10 1.00 - 5.00 K/mcL LAB HEMETOLOGY METHOD 12/07/2024 7:21 AM [facility] Monocytes Absolute 1.18(H) 0.20 - 1.00 K/mcL LAB HEMETOLOGY METHOD 12/07/2024 7:21 AM [facility] Eosinophils Absolute 0.00 0.00 - 0.50 K/mcL LAB HEMETOLOGY METHOD 12/07/2024 7:21 AM EST [facility] Basophils Absolute 0.06 0.00 - 0.20 K/mcL LAB HEMETOLOGY METHOD 12/07/2024 7:21 AM [facility] Immature Granulocytes Absolute 0.60(H) 0.00 - 0.03 K/mcL LAB HEMETOLOGY METHOD 12/07/2024 7:21 AM [facility] Blood Venous blood specimen / Unknown Venipuncture / Unknown 12/07/2024 6:02 AM EST 12/07/2024 6:51 AM EST us Milagro WEBBER LAB BLOOD ORDERABLES Final Result [facility] [address] [place] [address], * Folate (12/07/2024 6:02 AM EST) Pathologist [facility] Folate 13.9 2.8 - 17.0 ng/ml LAB CHEMISTRY METHOD 12/07/2024 9:35 AM EST [facility] Blood Venous blood specimen / Unknown Venipuncture / Unknown 12/07/2024 6:02 AM EST 12/07/2024 6:49 AM EST Nuria Marie MD LAB BLOOD ORDERABLES Final Result Performing Organization Address City/[facility]/ZIP Co de Phone Number [facility] [address] [place] [address], [place] [phone] * Vitamin B12 (12/07/2024 6:02 AM EST) [facility] Vitamin B-12 698 250 - 900 pcg/mL LAB CHEMISTRY METHOD 12/07/2024 9:59 AM [facility] Blood Venous blood specimen / Unknown Venipuncture / Unknown 12/07/2024 6:02 AM EST 12/07/2024 6:49 AM EST Nuria Marie MD LAB BLOOD ORDERABLES Final Result Performing Organization Address City/[facility] de Phone Number [facility] [address] [place] [address], [place] [phone] * (ABNORMAL) Basic metabolic panel (12/07/2024 6:02 AM EST) Only the most recent of7 resultswithin the time period is included. [facility] Sodium 139 133 - 145 mmol/L LAB CHEMISTRY METHOD 12/07/2024 7:57 AM [facility] Potassium 4.5 3.5 - 5.5 mmol/L LAB CHEMISTRY METHOD 12/07/2024 7:57 AM EST [facility] Chloride 96 96 - 110 mmol/L LAB CHEMISTRY METHOD 12/07/2024 7:57 AM [facility] CO2 38(H) 21 - 32 mmol/L LAB CHEMISTRY METHOD 12/07/2024 7:57 AM EST [facility] Anion Gap 5 3 - 11 LAB CHEMISTRY METHOD 12/07/2024 7:57 AM [facility] Glucose 153(H) 70 - 100 mg/dL LAB CHEMISTRY METHOD 12/07/2024 7:57 AM [facility] BUN 31(H) 5 - 25 mg/dL LAB CHEMISTRY METHOD 12/07/2024 7:57 AM [facility] Creatinine 1.22(H) 0.50 - 1.10 mg/dL LAB CHEMISTRY METHOD 12/07/2024 7:57 AM [facility] eGFR 50(L) >=60 mL/min/1. 73m2 LAB CHEMISTRY METHOD 12/07/2024 7:57 AM [facility] Comment:Calculation based on the??Chronic Kidney Disease Epidemiology Collaboration (CKD-EPI) equation refit??without adjustment for race. BUN/Creatinine Ratio 25.4 LAB CHEMISTRY METHOD 12/07/2024 7:57 AM [facility] Calcium 8.7 8.5 - 10.5 mg/dL LAB CHEMISTRY METHOD 12/07/2024 7:57 AM [facility] Blood Venous blood specimen / Unknown Venipuncture / Unknown 12/07/2024 6:02 AM EST 12/07/2024 6:49 AM EST us Milagro WEBBER LAB BLOOD ORDERABLES Final Result [facility] [address] [place] [address], [place] [phone] * TRANSTHORACIC ECHOCARDIOGRAM (TTE) COMPLETE W/ CONTRAST (12/05/2024 11:01 AM EST) Left Atrium Minor [place] 5.6 cm CV PACS Left Atrium Major [place] 5.5 cm CV PACS [place] Area Sys [...] LAB CHEMISTRY METHOD 12/05/2024 7:40 AM EST [facility] Blood Venous blood specimen / Unknown Venipuncture / Unknown 12/05/2024 6:19 AM EST 12/05/2024 6:59 AM EST Milagro WEBBER LAB BLOOD ORDERABLES Final Result [facility] [address] [place] [address], [place] [phone] * XR Chest 1 View (12/03/2024 7:33 PM EST) Anatomical Region Laterality Modality Body Radiographic Dahiana ging 12/04/2024 9:28 AM EST Impressions 12/04/2024 9:32 AM EST Impression: 1. Stable right hemidiaphragmatic elevation since 2019. 2. Lungs grossly clear. Telerad AKBAR ([id number]) -------- FINAL REPORT -------- Dictated By: Keiko Dyson Dictated Date: 12/04/2024 09:28 ET Assigned Physician: Keiko Dyson Reviewed and Electronically Signed By: Keiko Dyson Signed Date: 12/04/2024 09:32 ET Workstation ID: [id number] Transcribed By: Self Edit Transcribed Date: 12/04/2024 [...] 2019. 2. Lungs grossly clear. Telelula WEBBER ([id number]) -------- FINAL REPORT -------- Dictated By: Keiko Dyson Dictated Date: 12/04/2024 09:28 ET Assigned Physician: Keiko Dyson Reviewed and Electronically Signed By: Keiko Dyson Signed Date: 12/04/2024 09:32 ET Workstation ID: [id number] Transcribed By: Self Edit Transcribed Date: 12/04/2024 09:28 ET Angelic WEBBER IMG XR PROCEDURES Final Result * ECG 12 lead (12/03/2024 7:00 PM EST) Only the most recent of2 resultswithin the time period is included. Ventricular Rate ECG 101 BPM GEMUSE Atrial Rate 125 BPM GEMUSE QRS Duration 142 ms GEMUSE Q-T Interval 390 ms GEMUSE QTc 505 ms GEMUSE R [place] 79 degrees GEMUSE T [place] 33 degrees GEMUSE ECG Interpretation Atrial fibrillation with rapid ventricular response Right bundle branch block Abnormal ECG When compared with ECG of 01-DEC-2024 09:55, No significant change was found Confirmed by FLORENTIN VANEGAS ([id number]) on 12/04/2024 4:35:43 PM GEMUSE 12/03/2024 7:00 PM EST 12/04/2024 4:35 PM EST Raheel WEBBER ECG ORDERABLES Final Res ult Performing Organization Address [facility]/ZIP Co de Phone Number PAL * Procalcitonin (12/02/2024 9:18 AM EST) Procalcitonin 0.08 <=0.16 ng/mL LAB CHEMISTRY METHOD 12/02/2024 10:29 AM EST [facility] LAB [...] ORDERABLES Sandee l Result Performing Organization Address [facility]/ZIP Co de Phone Number [facility] [address] [place] [address], [place] [phone] * Thyroid stimulating hormone (12/02/2024 9:18 AM EST) TSH 1.95 0.40 - 4.00 mcIU/mL LAB CHEMISTRY METHOD 12/02/2024 11:45 AM EST [facility] Blood Venous blood specimen / Unknown Venipuncture / Unknown 12/02/2024 9:18 AM EST 12/02/2024 9:44 AM EST [facility] LAB BLOOD ORDERABLES Sandee l Result Performing Organization Address City/[facility]/ZIP Co de Phone Number [facility] [address] [place] [address], * Lactate (12/02/2024 9:18 AM EST) Only the most recent of2 resultswithin the time period is included. Lactate 1.4 0.4 - 2.0 mmol/L LAB CHEMISTRY METHOD 12/02/2024 10:08 AM EST [facility] Blood Venous blood specimen / Unknown Venipuncture / Unknown 12/02/2024 9:18 AM EST 12/02/2024 9:45 AM EST [facility] LAB BLOOD ORDERABLES Sandee l Result Performing Organization Address City/[facility]/ZIP Co de Phone Number [facility] [address] [place] [address], * Culture blood (12/01/2024 4:05 PM EST) [...] OR DERABLES Final Result Performing Organization Address City/[facility]/ZIP Co de Phone Number [facility] [address] [place] [address], [place] [phone] * (ABNORMAL) Prothrombin time with INR (12/01/2024 2:57 PM EST) Protime 19.8(H) 10.6 - 13.9 sec LAB COAGULATION METHOD 12/01/2024 3:24 PM EST [facility] INR 1.6 LAB COAGULATION METHOD 12/01/2024 3:24 PM EST [facility] Blood Venous blood specimen / Unknown Venipuncture / Unknown 12/01/2024 2:57 PM EST 12/01/2024 3:02 PM EST Giovana WEBBER LAB BLOOD ORDERABLES Final Re sult Performing Organization Address [facility]/ZIP Co de Phone Number [facility] [address] [place] [address], [place] [phone] * (ABNORMAL) B-type natriuretic peptide (12/01/2024 2:57 PM EST) Pathologist [facility] BNP 542(H) <=100 pcg/mL LAB CHEMISTRY METHOD 12/01/2024 3:42 PM EST [facility] Blood Venous blood specimen / Unknown Venipuncture / Unknown 12/01/2024 2:57 PM EST 12/01/2024 3:02 PM EST Giovana WEBBER LAB BLOOD ORDERABLES Final Re sult [facility] [address] [place] [address], [place] [phone] * CT Angio Chest wo and/or w [...] Signed Date: 12/01/2024 11:56 ET Workstation ID: [id number] Transcribed By: Self Edit Transcribed Date: 12/01/2024 [...] Signed Date: 12/01/2024 11:56 ET Workstation ID: [id number] Transcribed By: Self Edit Transcribed Date: 12/01/2024 11:53 ET [address]ilyn WEBBER IMG CT PROCEDURES Final Resul t * Troponin I high sensitivity (12/01/2024 10:12 AM EST) High Sensitivity Troponin I 7 <=54 ng/L LAB CHEMISTRY METHOD 12/01/2024 11:03 AM EST [facility] Blood Venous blood specimen / Unknown Venipuncture / Unknown 12/01/2024 10:12 AM EST 12/01/2024 10:30 AM EST [facility] LAB - 12/01/2024 11:03 AM EST High levels of biotin in samples may falsely decrease hsTroponin values. ??Use caution when interpreting hsTroponin results in patients taking biotin who exhibit renal impairment (eGFR <60) or in patients taking more than 20 mg/day of biotin. Josh Carranza MD LAB BLOOD ORDERABLES Final Result Performing Organization Address City/[facility]/ZIP Co de Phone Number [facility] [address] [place] [address], [place] [phone] * Vitamin B12 and folate (12/01/2024 10:12 AM EST) [facility] Vitamin B-12 468 250 - 900 pcg/mL LAB CHEMISTRY METHOD 12/01/2024 4:12 PM [facility] Folate 10.4 2.8 - 17.0 ng/ml LAB CHEMISTRY METHOD 12/01/2024 4:12 PM [facility] Blood Venous blood specimen / Unknown Venipuncture / Unknown 12/01/2024 10:12 AM EST 12/01/2024 10:30 AM EST Giovana WEBBER LAB BLOOD ORDERABLES Final Re sult Performing Organization Address [facility]/ZIP Co de Phone Number [facility] [address] [place] [address], [place] [phone] * (ABNORMAL) Manual differential (12/01/2024 10:12 AM EST) [facility] Neutrophils % 90.0 % LAB HEMETOLOGY METHOD 12/01/2024 11:16 AM [facility] Lymphocytes % 6.0 % LAB HEMETOLOGY METHOD 12/01/2024 11:16 AM [facility] Monocytes % 4.0 % LAB HEMETOLOGY METHOD 12/01/2024 11:16 AM [facility] Eosinophils % 0.0 % LAB HEMETOLOGY METHOD 12/01/2024 11:16 AM [facility] Basophils % 0.0 % LAB HEMETOLOGY METHOD 12/01/2024 11:16 AM [facility] Neutrophils Absolute Manual 20.70(H) 1.50 - 7.00 K/mcL LAB HEMETOLOGY METHOD 12/01/2024 11:16 AM EST [facility] Lymphocytes Absolute 1.38 1.00 - 5.00 K/mcL LAB HEMETOLOGY METHOD 12/01/2024 11:16 AM [facility] Monocytes Absolute Manual 0.92 0.20 - 1.00 K/mcL LAB HEMETOLOGY METHOD 12/01/2024 11:16 AM [facility] Eosinophils Absolute Manual 0.00 0.00 - 0.50 K/mcL LAB HEMETOLOGY METHOD 12/01/2024 11:16 AM [facility] Basophils Absolute Manual 0.00 0.00 - 0.20 K/mcL LAB HEMETOLOGY METHOD 12/01/2024 11:16 AM [facility] Rbc Morphology Present( A) Consistent with indices, Normal for LAB HEMETOLOGY METHOD 12/01/2024 11:16 AM [facility] Comment:RBC: Morphology agre es with CBC Platelet Morphology - WAM See Note(A) Normal LAB HEMETOLOGY METHOD 12/01/2024 11:16 AM [facility] Comment:PLT: Normal Polychromasia Present Present( A) (none) LAB HEMETOLOGY METHOD 12/01/2024 11:16 AM [facility] Blood Venous blood specimen / Unknown Venipuncture / Unknown 12/01/2024 10:12 AM EST 12/01/2024 10:30 AM EST us Ailyn WEBBER LAB BLOOD ORDERABLES Final Re sult [facility] [address] [place] [address], * (ABNORMAL) Iron and TIBC (12/01/2024 10:12 AM EST) [facility] Iron 19(L) 40 - 150 mcg/dL LAB CHEMISTRY METHOD 12/01/2024 2:49 PM EST [facility] TIBC 428 250 - 450 mcg/dL LAB CHEMISTRY METHOD 12/01/2024 2:49 PM [facility] Iron Saturation 4(L) 15 - 50 % LAB CHEMISTRY METHOD 12/01/2024 2:49 PM [facility] Blood Venous blood specimen / Unknown Venipuncture / Unknown 12/01/2024 10:12 AM EST 12/01/2024 10:30 AM EST Giovana WEBBER LAB BLOOD ORDERABLES Final Re sult Performing Organization Address [facility]/ZIP Co de Phone Number [facility] [address] [place] [address], [place] [phone] * Ferritin (12/01/2024 10:12 AM EST) [facility] Ferritin 31 8 - 252 ng/mL LAB CHEMISTRY METHOD 12/01/2024 3:23 PM [facility] Blood Venous blood specimen / Unknown Venipuncture / Unknown 12/01/2024 10:12 AM EST 12/01/2024 10:30 AM EST Giovaan WEBBER LAB BLOOD ORDERABLES Final Re sult Performing Organization Address City/[facility]/ZIP Co de Phone Number [facility] [address] [place] [address], [place] [phone] * Hepatic function panel (12/01/2024 10:12 AM EST) [facility] Total Protein 6.5 6.0 - 8.0 g/dL LAB CHEMISTRY METHOD 12/01/2024 2:37 PM [facility] Albumin 3.3 3.2 - 5.0 g/dL LAB CHEMISTRY METHOD 12/01/2024 2:37 PM EST [facility] Total Bilirubin 0.5 0.0 - 1.4 mg/dL LAB CHEMISTRY METHOD 12/01/2024 2:37 PM [facility] Bilirubin, Direct 0.1 0.0 - 0.3 mg/dL LAB CHEMISTRY METHOD 12/01/2024 2:37 PM [facility] Bilirubin, Indirect 0.4 0.0 - 1.1 mg/dL LAB CHEMISTRY METHOD 12/01/2024 2:37 PM [facility] ALT (SGPT) 21 10 - 60 unit/L LAB CHEMISTRY METHOD 12/01/2024 2:37 PM [facility] AST (SGOT) 12 10 - 42 unit/L LAB CHEMISTRY METHOD 12/01/2024 2:37 PM [facility] Alkaline Phosphatase 68 42 - 121 unit/L LAB CHEMISTRY METHOD 12/01/2024 2:37 PM [facility] Blood Venous blood specimen / Unknown Venipuncture / Unknown 12/01/2024 10:12 AM EST 12/01/2024 10:30 AM EST us Giovana [facility] BLOOD ORDERABLES Final Re sult [facility] [address] [place] [address], * (ABNORMAL) Respiratory virus panel molecular study (12/01/2024 10:06 AM EST) Adenovirus Detection by PCR Not Detected Not Detected LAB MICROBIOLOGY METHOD 12/01/2024 11:43 AM [facility] Influenza A PCR Not Detected Not Detected LAB MICROBIOLOGY METHOD 12/01/2024 11:43 AM [facility] Influenza B PCR Not Detected Not Detected LAB MICROBIOLOGY METHOD 12/01/2024 11:43 AM [facility] Coronavirus 229E Not Detected Not Detected LAB MICROBIOLOGY METHOD 12/01/2024 11:43 AM [facility] Coronavirus HKU1 Not Detected Not Detected LAB MICROBIOLOGY METHOD 12/01/2024 11:43 AM [facility] Coronavirus OC43 Not Detected Not Detected LAB MICROBIOLOGY METHOD 12/01/2024 11:43 AM [facility] Coronavirus NL63 Not Detected Not Detected LAB MICROBIOLOGY METHOD 12/01/2024 11:43 AM [facility] Parainfluenza Virus 1 Not Detected Not Detected LAB MICROBIOLOGY METHOD 12/01/2024 11:43 AM [facility] Parainfluenza Virus 2 Not Detected Not Detected LAB MICROBIOLOGY METHOD 12/01/2024 11:43 AM [facility] Parainfluenza Virus 3 Not Detected Not Detected LAB MICROBIOLOGY METHOD 12/01/2024 11:43 AM [facility] Parainfluenza Virus 4 Not Detected Not Detected LAB MICROBIOLOGY METHOD 12/01/2024 11:43 AM [facility] RSV PCR Not Detected Not Detected LAB MICROBIOLOGY METHOD 12/01/2024 11:43 AM [facility] Human Metapneumovirus A and B Not Detected Not Detected LAB MICROBIOLOGY METHOD 12/01/2024 11:43 AM [facility] Rhinovirus/Entero virus Not Detected Not Detected LAB MICROBIOLOGY METHOD 12/01/2024 11:43 AM [facility] Bordetella pertussis Not Detected Not Detected LAB MICROBIOLOGY METHOD 12/01/2024 11:43 AM [facility] Bordetella parapertussis Not Detected Not Detected LAB MICROBIOLOGY METHOD 12/01/2024 11:43 AM [facility] Mycoplasma pneumo by PCR Not Detected Not Detected LAB MICROBIOLOGY METHOD 12/01/2024 11:43 AM [facility] Chlamydia pneumoniae Not Detected Not Detected LAB MICROBIOLOGY METHOD 12/01/2024 11:43 AM [facility] SARS COV-2 Detected(A ) Not Detected LAB MICROBIOLOGY METHOD 12/01/2024 11:43 AM EST [facility] Swab Both anterior nares / Unknown Non-blood Collection / Unknown 12/01/2024 10:06 AM EST 12/01/2024 10:13 AM EST Narrative [facility] - 12/01/2024 11:43 AM EST Testing was performed using the LifeScribe Respiratory Pathogen PCR Assay. All results must [...] MICROBIOLOGY - GENERAL OR DERABLES Final Result [facility] [address] [place] [address], * ECG-Outside (12/01/2024) Only the most recent [...] currently active code status orders. Care Teams Pole Cutter Relationship Specialty Start Date End Date Amita Ruiz MD [address] [place] [address] PCP - General Internal Medicine 10/13/24
--- OUTSIDE RECORDS SUMMARY | 2025-02-05 10:43 | XMS_ITS | Encounter Summary ---
Author Organization [facility] Address [address] [place] [address] Care Team Providers Care Vice President Business & Corporate Development Name Role Phone Amita Ruiz MD Primary Care Provider [phone] Encounter Details Date Type Department Care Team (Latest Contact Info) Description 01/16/2025 8:56 AM EST - 01/16/2025 11:59 PM [facility] Hospital Encounter [facility] Radiation Oncology [address] [phone] Arabella King NP [address] [place] [address] Malignant neoplasm of upper-outer quadrant of right [...] from the original note were not included. [address] [phone] Radiation Oncology Treatment Completion Patient Name: Yaquelin Rasheed Date of : 1960 Attending Physician: Arabella King NP Diagnosis / Cancer Staging Malignant neoplasm of upper-outer quadrant of right breast in female, estrogen receptor positive ([facility]) Staging form: Breast, AJCC 8th Edition - Pathologic: Stage IA (pT1c, pN0, cM0, G1, ER+, OK+, HER2-) - Signed by Radha Bourgeois MD on 11/09/2024 Site Summary: 3D MUSIC HISTORIAN: Right Breast Treatment Period Technique Fraction Dose Fractions Total Dose Course 1 12/18/2024-01/16/2025 (days elapsed: 29) Right Breast 12/18/2024-01/16/2025 Tangents 267 / 267 cGy 4272 / 4,272 cGy Intent: Curative Treatment Description: 3D MUSIC HISTORIAN Concurrent therapy: No Treatment Details: Subjective and/or [...] - 6 weeks. Go to front desk assistant for follow up appointment. Please call [phone] and select option #2 with any questions or concerns prior to your next visit. documented in this encounter Plan of Treatment Upcoming Encounters Date Type Department Care Team (Late st Contact Info) Description 02/13/2025 11:30 AM EDT Appointment [facility] Radiation Oncology [address] [address] Arabella King NP [address] [place] [address] documented as of this encounter Visit Diagnoses Diagnosis Malignant neoplasm of upper-outer quadrant of right breast in female, estrogen receptor positive (CMS/HCC)- Primary documented in this encounter Care Teams Vice President Business & Corporate Development Relationship Specialty Start Date End Date Amita Ruiz MD [address] [place] [address] PCP - General Internal Medicine 10/13/24 documented as of this encounter
--- OUTSIDE RECORDS SUMMARY | 2025-02-05 10:43 | XMS_ITS ---
Author Organization [facility] Address [address] [place] [address] Care Team Providers Care User Experience Architect Name Role Phone Amita Ruiz MD Primary Care Provider Arie Eduardo Jr [phone] REASON FOR VISIT screening Encounters Encounter Location Date Provider Diagnosis [facility] Outpatient [address] [place], [place] [id number] 10/26/2023 Arie Last Jr Encounter for screening colonoscopy Z12.11 and Colon polyps K63.5 Assessments Encounter Date Diagnosis (ICD Code) Assessment Notes Treatment Notes Treatment Clinical Notes Section Notes 10/26/2023 Encounter for screening colonoscopy (ICD-10 - Z12.11) 10/26/2023 Colon polyps (ICD-10 - K63.5) Plan Of Treatment No Information Progress Notes * RAJ SOUZAOB:1960 ( 64 yo F)Acc No.[id number]:10/26/2023 COLON WITH MAC Patient:?TIFFANY SOUZA Provider:?Arie Last MD :1960???Age:63 Y???Sex:Female D ate:10/26/2023 Address:[address] [place], [place] [phone] Pcp:Amita Ruiz MD Subjective: * Chief Complaints: * ???1. Screening. * Medical History:? Objective: * Vitals:? Assessment: * Assessment: 1.?Encounter for screening c olonoscopy - Z12.11 (Primary)???2.?Colon polyps - K63.5??? Plan: * Treatment: * Procedure Codes:?86949 LESIO N REMOVAL COLONOSCOPY, 26217 COLONOSCOPY AND BIOPSY, Modifiers: 59 * * The named appointment provid er may or may not be the originator of this progress note, and it is not deemed complete until electronically signed by the appointment provider. Sign off status: Pending * Provider:?Arie Last MD Date:?1 12/26/2022 Generated for Janie melendez/Nu/Yvroseitting on:?02/05/2025 10:42 AM EDT
--- OUTSIDE RECORDS SUMMARY | 2025-02-05 10:43 | XMS_ITS ---
Author Organization [facility] Address [address] [place] [address] Phone Care Team Providers Care Irrigation Equipment Remover Name Role Phone Amita Ruiz MD Primary Care Provider [phone] Active Problems Problem Noted Date Diagnosed Date COVID-19 12/01/2024 Acute hypoxemic respiratory failure due to COVID -19 12/01/2024 Malignant neoplasm of upper- outer quadrant of right breast in female, estrogen receptor positive 11/09/2024 Cancer Staging:Pathologic:Stage IA(pT1c, pN0, cM0, G1, ER+, CA+, HER2-) - Signed by Radha Bourgeois MD [...]
== END 2025-02-05 11:19 | disposition home or self-care (01) ==
PROVIDERS: PCP Internal Medicine; Visit Provider Physician Assistant Medical
DX: R06.81 Apnea, not elsewhere classified (principal); M25.541 Pain in joints of right hand; M25.542 Pain in joints of left hand; D50.8 Other iron deficiency anemias; M79.89 Other specified soft tissue disorders; E66.01 Morbid (severe) obesity due to excess calories; G47.33 Obstructive sleep apnea (adult) (pediatric); R06.83 Snoring; G47.19 Other hypersomnia
CPT/HCPCS: 99204

== ENCOUNTER → 2025-02-05 09:47 | Outpatient (BNVA) | payer OTHER, SELFPAY | PROVIDERS: PCP Internal Medicine; Visit Provider Physician Assistant Medical | DX: R06.81 Apnea, not elsewhere classified (principal); R06.83 Snoring; D50.8 Other iron deficiency anemias; G47.33 Obstructive sleep apnea (adult) (pediatric); G47.19 Other hypersomnia; E66.01 Morbid (severe) obesity due to excess calories; M25.541 Pain in joints of right hand; M25.542 Pain in joints of left hand; M79.89 Other specified soft tissue disorders | CPT/HCPCS: 99212 ==

== ENCOUNTER 2025-02-06 09:01 | Outpatient (AMB) | payer OTHER, SELFPAY ==
[2025-02-06 09:07] VITALS: BP 142/62; PULSE 80; O2SAT 96; BMI 51.2
--- NOTE | 2025-02-06 09:07 | A.OFFVIS_ITS ---
Vital Signs 02/06/25 09:07 Height 5 ft 1 in Weight 271 lb BMI 51.2 BP 142/62 H Blood Pressure Location Rt radial Position Sitting Pulse 80 Pulse Source Doppler Pulse Oximetry (%) 96 Oxygen Delivery Method Nasal Cannula Oxygen Flow Rate 2 Intake Visit Reasons: Hypoxia Allergies erythromycin base Allergy (Intermediate, Verified 02/06/25 09:13) Abdominal Pain lisinopril Allergy (Intermediate, Verified 02/06/25 09:13) Rash HPI HPI Hypoxia: Details: 63-year-old lady, nonsmoker, with underlying QAMAR on CPAP, paroxysmal AFib, and essentially otherwise normal cardiac workup referred for evaluation of pulmonary component dyspnea. Patient reports dyspnea on exertion after walking for several 100 yd. She does have family history of lung cancer in her mother who was not a smoker. Patient states that she previously has used albuterol MDI for possible mild asthma, however she does not remember it ever provide significant relief. Patient does have recent pulmonary function testing performed at [facility] showing moderate obstruction with no bronchodilator response and normal diffusion capacity which is inconsistent with COPD or emphysema. After the last office visit patient unfortunately has been diagnosed with breast cancer and now undergoes further workup and therapy. She also was not able to complete her cardiopulmonary exercise test yet. She does complain of worsening orthopnea, lower extremity edema, and dyspnea on exertion. She is also using supplemental oxygen at 2 L at this time. [facility] Medical History (HFpEF) heart failure with preserved ejection fraction Arthritis HX: breast cancer SOB (shortness of breath) On anticoagulant therapy Invasive ductal carcinoma of right breast in female A-fib Hypothyroid Osteoporosis Urethral stenosis Depression with anxiety Thyroid cancer Acid reflux Kidney stone QAMAR (obstructive sleep apnea) Hypertension Knee pain, left Surgical History History of lumpectomy of right breast (09/20/24) Hx of dilation of urethra Hx of cystoscopy H/O colonoscopy History of partial hysterectomy History of thyroidectomy Family History Mother Lung cancer Father HTN (hypertension) Melanoma Social History Household Members: Spouse Housing: House Are you a primary career orientation teacher to a significant other at home: No Do you presently have visiting nurse or other home services: No Alcohol intake: current Alcohol intake frequency: does not drink Patient Tobacco Use Status: Never used Tobacco e-Cigarette/Vaping Use: Never Used service: No Current occupational status: unemployed Current occupation: right handed Cognitive needs: No Hearing needs: No Vision needs: Yes Female Reproductive History Menstrual Age of Menarche: 13 Review of Systems Const Denies daytime sleepiness, Denies excessive sweating, Denies fatigue, Denies fever(s), Denies lethargy, Denies malaise, Denies night sweats, Denies snoring and Denies weight loss Eyes Denies blurry vision and Denies itchy eyes ENT Denies nasal congestion, Denies post nasal drip, Denies sinus pain, Denies sinus pressure and Denies other ( Thrush) Card Denies chest pain, Reports pedal edema, Reports leg edema, Reports dyspnea, Reports dyspnea on exertion, Reports orthopnea and Denies paroxysmal nocturnal dyspnea Resp Denies cough, Denies hemoptysis, Denies excessive phlegm production, Reports dyspnea, Reports dyspnea on exertion, Denies snoring and Denies wheezing GI Denies abdominal pain and Denies heartburn Musc Denies myalgias, Denies arthralgias and Denies joint swelling Skin/Breast Denies rash Neuro Denies memory loss and Denies seizure-like activity Psych Denies abnormal sleep pattern, Denies anxiety and Denies memory loss Endo Denies excessive sweating, Denies fatigue and Denies heat intolerance Maynor/Lymph Denies easy bruising Aller/Immun Denies itchy eyes, Denies seasonal rhinorrhea and Denies wheezing Physical Exam Vital Signs: Last Vital Signs Pulse 80 02/06/25 09:07 BP 142/62 H 02/06/25 09:07 Pulse Ox 96 02/06/25 09:07 Oxygen Delivery Method Nasal Cannula 02/06/25 09:07 Oxygen Flow Rate 2 02/06/25 09:07 BMI result Body Mass Index 51.2 Const General: no acute distress and alert Nutritional Appearance: obese Orientation/consciousness: Other orientation findings ( oriented) HEENT Head: Yes atraumatic Eyes General: appearance normal, both eyes and all related structures Sclerae: sclerae normal EOM: EOMs intact bilaterally Neck Neck: Yes supple Lymphatic: no lymphadenopathy noted Resp Effort & Inspection: normal respiratory effort and no use of accessory muscles Auscultation: clear to auscultation bilaterally Cardio Rate: regular rate Rhythm: regular rhythm Heart sounds: no gallops, no murmurs and no rubs Skin General skin exam: other ( warm) Extrem General: No clubbing, No cyanosis and Yes edema (3+ bilateral) Assessment & Plan Assessment & Plan (1) Dyspnea: Code(s): R06.00 - Dyspnea, unspecified Category: Medical (2) Lower extremity edema: Code(s): R60.0 - Localized edema Category: Medical Plan Now with worsening orthopnea and lower extremity edema. Will add metolazone to underlying torsemide regimen and re-evaluate symptoms. Appears to have significant cardiac component. Patient is also undergoing electrophysiology evaluation for possible ablation and is going to start on IV iron therapy for underlying anemia. Continue supplemental oxygen to maintain O2 saturation above 89%. Cardiopulmonary exercise test is pending. Medications: New metolazone 10 mg PO .Wednesday tabs 6RF Coding Level of Care Code Est Pt Level 4 (85482) Complex EM visit Add On G2211 Diagnoses Dyspnea R06.00 Lower extremity edema R60.0
--- OUTSIDE RECORDS SUMMARY | 2025-02-06 09:59 | XMS_ITS | Encounter Summary ---
Author Organization [facility] Address [address] [place] [address] Care Team Providers Care Business System Consultant Name Role Phone Amita Ruiz MD Primary Care Provider [phone] Encounter Details Date Type Department Care Team (Latest Contact Info) Description 01/12/2025 8:29 AM EST - 01/12/2025 11:59 PM EST Hospital Encounter [facility] Radiation Oncology [address] [phone] Discharge Disposition: Home or Self [...] Appointment [facility] Radiation Oncology [address] [phone] Arabella King NP [address] [place] [address] documented as of this encounter Procedures Procedure [...] on filedocumented in this encounter Care Teams Business System Consultant Relationship Specialty Start Date End Date Amita Ruiz MD [address] [place] [address] PCP - General Internal Medicine 10/13/24 documented as of this encounter
--- OUTSIDE RECORDS SUMMARY | 2025-02-06 09:59 | XMS_ITS | Encounter Summary ---
Author Organization [facility] Address [address] [place] [address] Care Team Providers Care Topstitcher Zigzag Name Role Phone Amita Ruiz MD Primary Care Provider [phone] Encounter Details Date Type Department Care Team (Latest Contact Info) Description 01/10/2025 8:36 AM EST - 01/10/2025 11:59 PM EST Hospital Encounter [facility] Radiation Oncology [address] [phone] Discharge Disposition: Home or [...] Description 02/13/2025 11:30 AM EDT Appointment [facility] Radiation Oncology [address] [phone] Arabella King NP [address] [place] [address] documented as of this encounter Procedures Procedure [...] on filedocumented in this encounter Care Teams Topstitcher Zigzag Relationship Specialty Start Date End Date Amita Ruiz MD [address] [place] [address] PCP - General Internal Medicine 10/13/24 documented as of this encounter
--- OUTSIDE RECORDS SUMMARY | 2025-02-06 09:59 | XMS_ITS | Encounter Summary ---
Author Organization [facility] Address [address] [place] [address] Care Team Providers Care Staffing Manager Name Role Phone Amita Ruiz MD Primary Care Provider [phone] Encounter Details Date Type Department Care Team (Latest Contact Info) Description 01/15/2025 8:25 AM EST - 01/15/2025 11:59 PM EST Hospital Encounter [facility] Radiation Oncology [address] [phone] Discharge Disposition: Home or Self [...] [facility] Radiation Oncology [address] [phone] Arabella King NP [address] [place] [address] documented as of this encounter Procedures Procedure [...] on filedocumented in this encounter Care Teams Staffing Manager Relationship Specialty Start Date End Date Amita Ruiz MD [address] [place] [address] PCP - General Internal Medicine 10/13/24 documented as of this encounter
--- OUTSIDE RECORDS SUMMARY | 2025-02-06 09:59 | XMS_ITS | Encounter Summary ---
Author Organization [facility] Address [address] [place] [address] Care Team Providers Care Steel Loader Name Role Phone Amita Ruiz MD Primary Care Provider [phone] Encounter Details Date Type Department Care Team (Latest Contact Info) Description 01/16/2025 8:24 AM EST - 01/16/2025 11:59 PM EST Hospital Encounter [facility] Radiation Oncology [address] [phone] Discharge Disposition: Home or Self [...] Info) Description 02/13/2025 11:30 AM EDT Appointment [facility] Radiation Oncology [address] [phone] Arabella King NP [address] [place] [address] documented as of this encounter Procedures Procedure [...] on filedocumented in this encounter Care Teams Steel Loader Relationship Specialty Start Date End Date Amita Ruiz MD [address] [place] [address] PCP - General Internal Medicine 10/13/24 documented as of this encounter
--- OUTSIDE RECORDS SUMMARY | 2025-02-06 09:59 | XMS_ITS | Encounter Summary ---
Author Organization [facility] Address [address] [place] [address] Care Team Providers Care Thermal Molder Name Role Phone Amita Ruiz MD Primary Care Provider [phone] Reason for Visit * Reason Comments OTV Encounter Details Date Type Department Care Team (Latest Contact Info) Description 01/12/2025 8:52 AM EST - 01/12/2025 11:59 PM EST Hospital Encounter [facility] Radiation Oncology [address] [phone] Radha Bourgeios MD [address] [place] [address] Malignant neoplasm of upper-outer quadrant of right [...] Bourgeois MD - 01/12/2025 9:10 AM EST [address] [phone] Radiation Oncology On Treatment Visit Patient Name: [...] Stage IA (pT1c, pN0, cM0, G1, ER+, PA+, HER2-) - Signed by Radha Bourgeois MD on 11/09/2024 Diagnosis: Right breast (UOQ) invasive ductal carcinoma, ER/PA positive, Her2 negative 09/20/24 --right breast Lumpectomy with Dr. Crenshaw. Low Oncotype per pt Oct 2024 - started Letrozole Interval/Dose History: 3D COOK APPRENTICE PASTRY: Right Breast Treatment Period Technique Fraction Dose [...] had treatment break due to admission at [facility] due to leg swelling. Mild fungal reaction [...] Info) Description 02/13/2025 11:30 AM EDT Appointment [facility] Radiation Oncology [address] [phone] Arabella King NP [address] [place] [address] documented as of this encounter Visit Diagnoses [...] min. added in this encounter Care Teams Thermal Molder Relationship Specialty Start Date End Date Amita Ruiz MD [address] [facility] [place] [address] PCP - General Internal Medicine 10/13/24 documented as of this encounter
--- OUTSIDE RECORDS SUMMARY | 2025-02-06 09:59 | XMS_ITS | Encounter Summary ---
Author Organization [facility] Address [address] [place] [address] Care Team Providers Care Supercalender Operator Helper Name Role Phone Amita Ruiz MD Primary Care Provider [phone] Encounter Details Date Type Department Care Team (Latest Contact Info) Description 01/09/2025 8:26 AM EST - 01/09/2025 11:59 PM EST Hospital Encounter [facility] Radiation Oncology [address] [phone] Discharge Disposition: Home or Self [...] Description 02/13/2025 11:30 AM EDT Appointment [facility] Radiation Oncology [address] [phone] Arabella King NP [address] [place] [address] documented as of this encounter Procedures Procedure [...] on filedocumented in this encounter Care Teams Supercalender Operator Helper Relationship Specialty Start Date End Date Amita Ruiz MD [address] [place] [address] PCP - General Internal Medicine 10/13/24 documented as of this encounter
--- OUTSIDE RECORDS SUMMARY | 2025-02-06 09:59 | XMS_ITS ---
Author Organization [facility] Address [address] [place] [address] Care Team Providers Care Produce Shipper Name Role Phone Amita Ruiz MD Primary Care Provider Arie Eduardo Jr [phone] REASON FOR VISIT Xarelto Encounters Encounter Location Date Provider Diagnosis [facility] [address] [place] [phone] 09/22/2023 Arie Last Jr Plan Of Treatment No Information Progress Notes * LIBBYRAJOB:1960 ( 63 yo F)Acc No.[id number]:09/22/2023 Patient:?TIFFANY SOUZA :1960???Age:63 Y???Sex:Female Address:[address] [place] [address], [address] * true * Date:? Generated for [place] al/Nu/eTransmitting on:?02/06/2025 09:59 AM EDT
--- OUTSIDE RECORDS SUMMARY | 2025-02-06 09:59 | XMS_ITS | Encounter Summary ---
Author Organization [facility] Address [address] [place] [address] Care Team Providers Care Medical Collector Name Role Phone Amita Ruiz MD Primary Care Provider [phone] Encounter Details Date Type Department Care Team (Latest Contact Info) Description 01/11/2025 2:03 PM EST - 01/11/2025 11:59 PM EST Hospital Encounter [facility] Radiation Oncology [address] [phone] Discharge Disposition: Home or [...] EDT Appointment [facility] Radiation Oncology [address] [phone] Arabella King NP [address] [place] [address] documented as of this encounter Procedures Procedure [...] on filedocumented in this encounter Care Teams Medical Collector Relationship Specialty Start Date End Date Amita Ruiz MD [address] [place] [address] PCP - General Internal Medicine 10/13/24 documented as of this encounter
--- OUTSIDE RECORDS SUMMARY | 2025-02-06 10:00 | XMS_ITS ---
Author Organization [facility] Address [address] [place] [address] Care Team Providers Care Buzzle Buffer Name Role Phone Amita Ruiz MD Primary Care Provider Arie Eduardo Jr [phone] REASON FOR VISIT screening Encounters Encounter Location Date Provider Diagnosis [facility] Outpatient [address] [place], [place] [phone] 10/26/2023 Arie Last Jr Encounter for screening colonoscopy Z12.11 and Colon polyps K63.5 Assessments Encounter Date Diagnosis (ICD Code) Assessment Notes Treatment Notes Treatment Clinical Notes Section Notes 10/26/2023 Encounter for screening colonoscopy (ICD-10 - Z12.11) 10/26/2023 Colon polyps (ICD-10 - K63.5) Plan Of Treatment No Information Progress Notes * RAJ SOUZAOB:1960 ( 64 yo F)Acc No.[id number]:10/26/2023 COLON WITH MAC Patient:?TIFFANY SOUZA Provider:?Arie Last MD :1960???Age:63 Y???Sex:Female D ate:10/26/2023 Address:[address] [place], [place] [phone] Pcp:Amita Ruiz MD Subjective: * Chief Complaints: * ???1. Screening. * Medical History:? Objective: * Vitals:? Assessment: * Assessment: 1.?Encounter for screening c olonoscopy - Z12.11 (Primary)???2.?Colon polyps - K63.5??? Plan: * Treatment: * Procedure Codes:?16552 LESIO N REMOVAL COLONOSCOPY, 35271 COLONOSCOPY AND BIOPSY, Modifiers: 59 * * The named appointment provid er may or may not be the originator of this progress note, and it is not deemed complete until electronically signed by the appointment provider. Sign off status: Pending * Provider:?Arie Last MD Date:?12/26/2022 Generated for Janie melendez/Nu/Yvroseitting on:?02/06/2025 09:59 AM EDT
--- OUTSIDE RECORDS SUMMARY | 2025-02-06 10:00 | XMS_ITS | Patient Health Record ---
Author Organization [facility] Address [address] [place] [address] Care Team Providers Care Properties Supervisor Name Role Phone Amita Ruiz MD Primary Care Provider Arie Eduardo Jr Unavailable [phone] Allergies Allergen (clinical drug ingredient) Drug/Non Drug Allergy documented on EMR Reaction Allergy Type Onset Date Status erythromycin Erythromycin Unknown Drug Allergy A ctive lisinopril Lisinopril Unknown Drug Allergy Activ e Reason For Referral No Information Medications Medication SIG (Take, Route, Frequency, Duration) Notes [...] 20 MG Oral for 90 A ctive Immunizations Vaccine Route Administration Date Status Comme nts Influenza Unknown 09/08/2022 Administered Social History Tobacco Use: Social History Observation Description Date Details (start date - stop date) Never Smoker NA - NA Tobacco Use/Smoking Question Answer Notes Patient is a nonsmoker Alcohol Screen Question Answer Notes Did you have a drink containing alcohol in the p ast year? No Points 0 Interpretation Negative Problems Problem Type SNOMED Code ICD Code Onset Dates Problem Status W/U Status Risk Notes Problem 512390400 Colon cancer screening (Z12.11) Active confirmed Problem 62009199 Irritable bowel syndrome with both constipation and diarrhea (K58.2) Active confirmed Plan Of Treatment Future Test Test Name Order Date COLONOSCOPY 09/20/2023 Insurance Providers Payer Name Payer Address Payer Phone Subscriber Number Group Number Insured Name Patient Relationship to Insured Coverage Start Date Coverage End Date [facility] [address] [place] [phone] [id number] TIFFANY SOUZA Self - patient is the insured Medical (General) History Medical History History ICD Code Hypertension Papillary thyroid carcinoma Uterine fibroids Microscopic hematuria QAMAR/CPAP Osteoporosis Atrial fibrillation Surgical History Surgery Date(Month/Year) Thyroidectomy, lymph node exploration an d removal partial hysterectomy 2016 Hospitalization History Reason Date(Month/Year) Atrial fibrillation with rapid ventricul ar response 01/21
--- OUTSIDE RECORDS SUMMARY | 2025-02-06 10:00 | XMS_ITS ---
Author Organization [facility] Address [address] [place] [address] Phone Care Team Providers Care Check Totaler Name Role Phone Amita Ruiz MD Primary Care Provider [phone] Active Problems Problem Noted Date Diagnosed Date COVID-19 12/01/2024 Acute hypoxemic respiratory failure due to COVID -19 12/01/2024 Malignant neoplasm of upper- outer quadrant of right breast in female, estrogen receptor positive 11/09/2024 Cancer Staging:Pathologic:Stage IA(pT1c, pN0, cM0, G1, ER+, IA+, HER2-) - Signed by Radha Bourgeois MD [...]
--- OUTSIDE RECORDS SUMMARY | 2025-02-06 10:00 | XMS_ITS | Encounter Summary ---
Author Organization [facility] Address [address] [place] [address] Care Team Providers Care Analytical Consultant Name Role Phone Amita Ruiz MD Primary Care Provider [phone] Encounter Details Date Type Department Care Team (Latest Contact Info) Description 01/16/2025 8:56 AM EST - 01/16/2025 11:59 PM [facility] Hospital Encounter [facility] Radiation Oncology [address] [phone] Arabella King NP [address] [place] [address] Malignant neoplasm of upper-outer quadrant of right [...] from the original note were not included. 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 Go to front desk host for follow up appointment. Please call [phone] and select option #2 with any questions or concerns prior to your next visit. documented in this encounter Plan of Treatment Upcoming Encounters Date Type Department Care Team (Late st Contact Info) Description 02/13/2025 11:30 AM EDT Appointment [facility] Radiation Oncology [address] [phone] Arabella King NP [address] [place] [address] documented as of this encounter Visit Diagnoses Diagnosis Malignant neoplasm of upper-outer quadrant of right breast in female, estrogen receptor positive (CMS/HCC)- Primary documented in this encounter Care Teams Analytical Consultant Relationship Specialty Start Date End Date Amita Ruiz MD [address] [place] [address] PCP - General Internal Medicine 10/13/24 documented as of this encounter
--- OUTSIDE RECORDS SUMMARY | 2025-02-06 10:00 | XMS_ITS | Clinical Summary ---
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 Depression with anxiety 11/07/2024 Arthritis 11/07/2024 A-fib 11/07/2024 Hypothyroidism Resolved Problems Problem Noted Date Diagnosed Date Resolved Date Anemia 11/07/2024 11/07/2024 Encounters Date Type Department Care Team Description 01/16/2025 8:56 AM EST - 01/16/2025 11:59 PM EST Hospital Encounter [facility] Radiation Oncology [address] [place] [phone] Arabella King NP Malignant neoplasm of upper-outer quadrant of right breast in female, estrogen receptor positive (CMS/HCC) (Primary Dx) Discharge Disposition: Home or Self Care 01/16/2025 8:24 AM EST - 01/16/2025 11:59 PM EST Hospital Encounter [facility] Radiation Oncology [address] [place] [phone] Discharge Disposition: Home or Self Care 01/15/2025 8:25 AM EST - 01/15/2025 11:59 PM EST Hospital Encounter [facility] Radiation Oncology [address] [place] [phone] Discharge Disposition: Home or Self Care 01/12/2025 8:52 AM EST - 01/12/2025 11:59 PM EST Hospital Encounter [facility] Radiation Oncology [address] [place] [phone] Radha Bourgeois MD Malignant neoplasm of upper-outer quadrant of right breast in female, estrogen receptor positive (CMS/HCC) (Primary Dx) Discharge Disposition: Home or Self Care 01/12/2025 8:29 AM EST - 01/12/2025 11:59 PM EST Hospital Encounter [facility] Radiation Oncology [address] [place] [phone] Discharge Disposition: Home or Self Care 01/11/2025 2:03 PM EST - 01/11/2025 11:59 PM EST Hospital Encounter [facility] Radiation Oncology [address] [place] [phone] Discharge Disposition: Home or Self Care 01/10/2025 8:36 AM EST - 01/10/2025 11:59 PM EST Hospital Encounter [facility] Radiation Oncology [address] [place] [phone] Discharge Disposition: Home or Self Care 01/09/2025 8:26 AM EST - 01/09/2025 11:59 PM EST Hospital Encounter [facility] Radiation Oncology [address] [place] [phone] Discharge Disposition: Home or Self Care 01/08/2025 8:46 AM EST - 01/08/2025 11:59 PM EST Hospital Encounter [facility] Radiation Oncology [address] [place] [phone] Discharge Disposition: Home or Self Care 01/05/2025 8:46 AM EST - 01/05/2025 11:59 PM EST Hospital Encounter [facility] Radiation Oncology [address] [place] [phone] Radha Bourgeois MD Malignant neoplasm of upper-outer quadrant of right breast in female, estrogen receptor positive (CMS/HCC) (Primary Dx) Discharge Disposition: Home or Self Care 01/05/2025 8:27 AM EST - 01/05/2025 11:59 PM EST Hospital Encounter [facility] Radiation Oncology [address] [place] [phone] Discharge Disposition: Home or Self Care 01/04/2025 8:57 AM EST - 01/04/2025 11:59 PM EST Hospital Encounter [facility] Radiation Oncology [address] [place] [phone] Discharge Disposition: Home or Self Care 01/03/2025 8:32 AM EST - 01/03/2025 11:59 PM EST Hospital Encounter [facility] Radiation Oncology [address] [place] [phone] Discharge Disposition: Home or Self Care 01/02/2025 8:47 AM EST - 01/02/2025 11:59 PM EST Hospital Encounter [facility] Radiation Oncology [address] [place] [phone] Discharge Disposition: Home or Self Care 01/01/2025 8:28 AM EST - 01/01/2025 11:59 PM EST Hospital Encounter [facility] Radiation Oncology [address] [place] [phone] Discharge Disposition: Home or Self Care 12/21/2024 8:35 AM EST - 12/21/2024 11:59 PM EST Hospital Encounter [facility] Radiation Oncology [address] [place] [phone] Discharge Disposition: Home or Self Care 12/20/2024 8:41 AM EST - 12/20/2024 11:59 PM EST Hospital Encounter [facility] Radiation Oncology [address] [place] [phone] Discharge Disposition: Home or Self Care 12/19/2024 8:52 AM EST - 12/19/2024 11:59 PM EST Hospital Encounter [facility] Radiation Oncology [address] [place] [phone] Discharge Disposition: Home or Self Care 12/18/2024 11:15 AM EST - 12/18/2024 11:59 PM EST Hospital Encounter [facility] Radiation Oncology [address] [place] [phone] Pari Martinez MD Discharge Disposition: Home or Self Care 12/18/2024 10:53 AM EST - 12/18/2024 11:59 PM EST Hospital Encounter [facility] Radiation Oncology [address] [place] [phone] Discharge Disposition: Home or Self Care 12/01/2024 11:09 AM EST - 12/01/2024 11:59 PM EST Hospital Encounter [facility] Radiation Oncology [address] [place] [phone] Discharge Disposition: Home or Self Care 12/01/2024 9:30 AM EST - 12/07/2024 4:56 PM EST Hospital Encounter [facility] Intermediate Care Unit [address] [place] [phone] Josh Carranza MD Kela, Kashyap Devendrabhai, MD Rasul, Yar M, MD Surendran, Anupama, MD COVID (Primary Dx); Peripheral edema Discharge Disposition: [place] [facility] [place]01/2024 Telephone [facility] Radiation Oncology [address] [place] [phone] Hyacinth Pinzon, BAO has covid 11/16/2024 10:00 AM EST - 11/16/2024 11:59 PM EST Hospital Encounter [facility] Radiation Oncology [address] [place] [phone] Radha Bourgeois MD Malignant neoplasm of right breast in female, estrogen receptor positive, unspecified site of breast (CMS/HCC) Discharge Disposition: Home or Self Care 11/16/2024 9:13 AM EST - 11/16/2024 11:59 PM EST Hospital Encounter [facility] Radiation Oncology [address] [place] [phone] Malignant neoplasm of upper-outer quadrant of right breast in female, estrogen receptor positive (CMS/HCC) (Primary Dx) Discharge Disposition: Home or Self Care 11/09/2024 12:49 PM EST - 11/09/2024 11:59 PM EST Hospital Encounter [facility] Radiation Oncology [address] [place] [phone] Radha Bourgeois MD Malignant neoplasm of upper-outer quadrant of right breast in female, estrogen receptor positive (CMS/HCC) (Primary Dx); Malignant neoplasm of right breast in female, estrogen receptor positive, unspecified site of breast (CMS/HCC) Discharge Disposition: Home or Self Care 11/09/2024 12:36 PM EST - 11/09/2024 11:59 PM EST Hospital Encounter [facility] Radiation Oncology [address] [place] [phone] Discharge Disposition: Home or Self Care from [...] [facility] Radiation Oncology [address] [phone] Arabella King NP [address] [place] [address] Health Maintenance Due Date Last Done Comments [...] GY ORDERABLES Final Result Performing Organization Address City/[facility] Co de Phone Number MOSAIQ RADIATION [...] GY ORDERABLES Final Result Performing Organization Address City/[facility]/ZIP Co de Phone Number MOSAIQ RADIATION [...] GY ORDERABLES Final Result Performing Organization Address City/[facility]/ZIP Co de Phone Number MOSAIQ RADIATION [...] Treatment Summary (12/18/2024 11:20 AM EST) Pathologist [facility] Treatment Site Right Breast MO SAIQ RADIATION [...] GY ORDERABLES Final Result Performing Organization Address City/[facility] Co de Phone Number MOSAIQ RADIATION ONCOLOGY * (ABNORMAL) CBC auto differential (12/07/2024 6:02 AM EST) Only the most recent of7 resultswithin the time period is included. WBC 15.5(H) 4.8 - 10.8 K/mcL LAB HEMETOLOGY METHOD 12/07/2024 7:21 AM EST [facility] RBC 3.30(L) 3.80 - 4.80 M/[facility] LAB HEMETOLOGY METHOD 12/07/2024 7:21 AM [...] 7:21 AM [facility] Eosinophils Absolute 0.00 0.00 [...] Final Result [facility] [address] [place] [address], * Folate (12/07/2024 6:02 AM EST) Pathologist [facility] Folate 13.9 2.8 - 17.0 ng/ml LAB CHEMISTRY METHOD 12/07/2024 9:35 AM EST [facility] Blood Venous blood specimen / Unknown Venipuncture / Unknown 12/07/2024 6:02 AM EST 12/07/2024 6:49 AM EST Nuria Marie MD LAB BLOOD ORDERABLES Final Result Performing Organization Address City/[facility]/ZIP Co de Phone Number [facility] [address] [place] [address], [place] [phone] * Vitamin B12 (12/07/2024 6:02 AM EST) [facility] Vitamin B-12 698 250 - 900 pcg/mL LAB CHEMISTRY METHOD 12/07/2024 9:59 AM [facility] Blood Venous blood specimen / Unknown Venipuncture / Unknown 12/07/2024 6:02 AM EST 12/07/2024 6:49 AM EST Nuria Marie MD LAB BLOOD ORDERABLES Final Result Performing Organization Address City/[facility] de Phone Number [facility] [address] [place] [address], [place] [phone] * (ABNORMAL) Basic metabolic panel (12/07/2024 6:02 AM EST) Only the most recent of7 resultswithin the time period is included. [facility] Sodium 139 133 - 145 mmol/L [...] 25.4 LAB CHEMISTRY METHOD 12/07/2024 7:57 AM [facility] Calcium 8.7 8.5 - 10.5 mg/dL LAB CHEMISTRY METHOD 12/07/2024 7:57 AM [facility] Blood Venous blood specimen / Unknown Venipuncture / Unknown 12/07/2024 6:02 AM EST 12/07/2024 6:49 AM EST us Milagro WEBBER LAB BLOOD ORDERABLES Final Result [facility] [address] [place] [address], [place] [phone] * TRANSTHORACIC ECHOCARDIOGRAM (TTE) COMPLETE W/ CONTRAST (12/05/2024 11:01 AM EST) Left Atrium Minor Idamay 5.6 cm CV PACS Left Atrium Major Idamay 5.5 cm CV PACS LA Area Sys [...] Final Result [facility] [address] [place] [address], [place] [phone] * XR Chest 1 View (12/03/2024 7:33 PM EST) Anatomical Region Laterality Modality Body Radiographic Dahiana ging 12/04/2024 9:28 AM EST Impressions 12/04/2024 9:32 AM EST Impression: 1. Stable right hemidiaphragmatic elevation since 2019. 2. Lungs grossly clear. Telerad AKBAR ([id number]) -------- FINAL REPORT -------- Dictated By: Keiko Dyson Dictated Date: 12/04/2024 09:28 ET Assigned Physician: Keiko Dyson Reviewed and Electronically Signed By: Keiko Dyson Signed Date: 12/04/2024 09:32 ET Workstation ID: [id number] Transcribed By: Self Edit Transcribed Date: 12/04/2024 [...] 2019. 2. Lungs grossly clear. Telelula WEBBER ([id number]) -------- FINAL REPORT -------- Dictated By: Keiko Dyson Dictated Date: 12/04/2024 09:28 ET Assigned Physician: Keiko Dyson Reviewed and Electronically Signed By: Keiko Dyson Signed Date: 12/04/2024 09:32 ET Workstation ID: [id number] Transcribed By: Self Edit Transcribed Date: 12/04/2024 09:28 ET Angelic WEBBER IMG XR PROCEDURES Final Result * ECG 12 lead (12/03/2024 7:00 PM EST) Only the most recent of2 resultswithin the time period is included. Ventricular Rate ECG 101 BPM GEMUSE Atrial Rate 125 BPM GEMUSE QRS Duration 142 ms GEMUSE Q-T Interval 390 ms GEMUSE QTc 505 ms GEMUSE R Idamay 79 degrees GEMUSE T Idamay 33 degrees GEMUSE ECG Interpretation Atrial fibrillation with rapid ventricular response Right bundle branch block Abnormal ECG When compared with ECG of 01-DEC-2024 09:55, No significant change was found Confirmed by FLORENTIN VANEGAS ([id number]) on 12/04/2024 4:35:43 PM GEMUSE 12/03/2024 7:00 PM EST 12/04/2024 4:35 PM EST Raheel WEBEBR ECG ORDERABLES Final Res ult Performing Organization Address [facility]/ZIP Co de Phone Number PAL * [...] ORDERABLES Sandee l Result Performing Organization Address [facility]/ZIP Co de Phone Number [facility] [address] [place] [address], [place] [phone] * Thyroid stimulating hormone (12/02/2024 9:18 AM EST) TSH 1.95 0.40 - 4.00 mcIU/mL LAB CHEMISTRY METHOD 12/02/2024 11:45 AM EST [facility] Blood Venous blood specimen / Unknown Venipuncture / Unknown 12/02/2024 9:18 AM EST 12/02/2024 9:44 AM EST [facility] LAB BLOOD ORDERABLES Sandee l Result Performing Organization Address City/[facility]/ZIP Co de Phone Number [facility] [address] [place] [address], * Lactate (12/02/2024 9:18 AM EST) Only the most recent of2 resultswithin the time period is included. Lactate 1.4 0.4 - 2.0 mmol/L LAB CHEMISTRY METHOD 12/02/2024 10:08 AM EST [facility] Blood Venous blood specimen / Unknown Venipuncture / Unknown 12/02/2024 9:18 AM EST 12/02/2024 9:45 AM EST [facility] LAB BLOOD ORDERABLES Sandee l Result Performing Organization Address City/[facility]/ZIP Co de Phone Number [facility] [address] [place] [address], * Culture blood (12/01/2024 4:05 PM EST) Only the most recent of2 resultswithin the time period is included. Culture, Blood No growth at 5 days 12/06/2024 5:01 PM EST [facility] Blood Venous blood specimen / Unknown Venipuncture / Unknown 12/01/2024 4:05 PM EST 12/01/2024 4:13 PM EST Giovana WEBBER LAB MICROBIOLOGY - GENERAL OR DERABLES Final Result Performing Organization Address City/[facility]/ZIP Co de Phone Number [facility] [address] [place] [address], [place] [phone] * (ABNORMAL) Prothrombin time with INR (12/01/2024 [...] ORDERABLES Final Re sult Performing Organization Address [facility]/ZIP Co de Phone Number [facility] [address] [place] [address], [place] [phone] * (ABNORMAL) B-type natriuretic peptide (12/01/2024 2:57 PM EST) Pathologist [facility] BNP 542(H) <=100 pcg/mL LAB CHEMISTRY METHOD 12/01/2024 3:42 PM EST [facility] Blood Venous blood specimen / Unknown Venipuncture / Unknown 12/01/2024 2:57 PM EST 12/01/2024 3:02 PM EST Giovana WEBBER LAB BLOOD ORDERABLES Final Re sult [facility] [address] [place] [address], [place] [phone] * CT Angio Chest wo and/or w [...] Signed Date: 12/01/2024 11:56 ET Workstation ID: [id number] Transcribed By: Self Edit Transcribed Date: 12/01/2024 [...] Signed Date: 12/01/2024 11:56 ET Workstation ID: [id number] Transcribed By: Self Edit Transcribed Date: 12/01/2024 [...] BLOOD ORDERABLES Final Result Performing Organization Address City/[facility]/ZIP Co de Phone Number [facility] [address] [place] [address], [place] [phone] * Vitamin B12 and folate (12/01/2024 10:12 AM EST) [facility] Vitamin B-12 468 250 - 900 pcg/mL LAB CHEMISTRY METHOD 12/01/2024 4:12 PM [facility] Folate 10.4 2.8 - 17.0 ng/ml LAB CHEMISTRY METHOD 12/01/2024 4:12 PM [facility] Blood Venous blood specimen / Unknown Venipuncture / Unknown 12/01/2024 10:12 AM EST 12/01/2024 10:30 AM EST Giovana WEBBER LAB BLOOD ORDERABLES Final Re sult Performing Organization Address [facility]/ZIP Co de Phone Number [facility] [address] [place] [address], [place] [phone] * (ABNORMAL) Manual differential (12/01/2024 10:12 AM EST) [facility] Neutrophils % 90.0 % LAB HEMETOLOGY [...] 12/01/2024 11:16 AM [facility] Rbc Morphology Present( A) Consistent with indices, Normal for LAB HEMETOLOGY METHOD 12/01/2024 11:16 AM [facility] Comment:RBC: Morphology agre es with CBC Platelet Morphology - WAM See Note(A) Normal LAB HEMETOLOGY METHOD 12/01/2024 11:16 AM [facility] Comment:PLT: Normal Polychromasia Present Present( A) (none) LAB HEMETOLOGY METHOD 12/01/2024 11:16 AM [facility] Blood Venous blood specimen / Unknown Venipuncture / Unknown 12/01/2024 10:12 AM EST 12/01/2024 10:30 AM EST us Ailyn WEBBER LAB BLOOD ORDERABLES Final Re sult [facility] [address] [place] [address], * (ABNORMAL) Iron and TIBC (12/01/2024 10:12 AM EST) [facility] Iron 19(L) 40 - 150 mcg/dL LAB CHEMISTRY METHOD 12/01/2024 2:49 PM EST [facility] TIBC 428 250 - 450 mcg/dL LAB CHEMISTRY METHOD 12/01/2024 2:49 PM [facility] Iron Saturation 4(L) 15 - 50 % LAB CHEMISTRY METHOD 12/01/2024 2:49 PM [facility] Blood Venous blood specimen / Unknown Venipuncture / Unknown 12/01/2024 10:12 AM EST 12/01/2024 10:30 AM EST Giovana WEBBER LAB BLOOD ORDERABLES Final Re sult Performing Organization Address [facility]/ZIP Co de Phone Number [facility] [address] [place] [address], [place] [phone] * Ferritin (12/01/2024 10:12 AM EST) [facility] Ferritin 31 8 - 252 ng/mL LAB CHEMISTRY METHOD 12/01/2024 3:23 PM [facility] Blood Venous blood specimen / Unknown Venipuncture / Unknown 12/01/2024 10:12 AM EST 12/01/2024 10:30 AM EST Giovana WEBBER LAB BLOOD ORDERABLES Final Re sult Performing Organization Address City/[facility]/ZIP Co de Phone Number [facility] [address] [place] [address], [place] [phone] * Hepatic function panel (12/01/2024 10:12 AM EST) [facility] Total Protein 6.5 6.0 - 8.0 [...] 12/01/2024 2:37 PM [facility] Alkaline Phosphatase 68 42 - 121 unit/L LAB CHEMISTRY METHOD 12/01/2024 2:37 PM [facility] Blood Venous blood specimen / Unknown Venipuncture / Unknown 12/01/2024 10:12 AM EST 12/01/2024 10:30 AM EST us Giovana WEBBER LAB BLOOD ORDERABLES Final Re sult [facility] [address] [place] [address], * (ABNORMAL) Respiratory virus panel molecular study [...] AM EST Testing was performed using the [employer] Respiratory Pathogen PCR Assay. All results must [...] Result [facility] [address] [place] [address], * ECG-Outside (12/01/2024) Only the most recent [...] currently active code status orders. Care Teams Senior Information Security Architect Relationship Specialty Start Date End Date Amita Ruiz MD [address] [place] [phone] PCP - General Internal Medicine 10/13/24
--- OUTSIDE RECORDS SUMMARY | 2025-02-06 10:00 | XMS_ITS ---
Author Organization [facility] Address [address] [place] [address] Care Team Providers Care Assembler Name Role Phone Amita Ruiz MD Primary Care Provider Arie Eduardo Jr REASON FOR VISIT pathology Encounters Encounter Location Date Provider Diagnosis [facility] [address] [place] [phone] 11/04/2023 Arie Last Jr Plan Of Treatment No Information Progress Notes * LIBBYRAJOB:1960 ( 63 yo F)Acc No.[id number]:11/04/2023 Patient:?TIFFANY SOUZA :1960???Age:63 Y???Sex:Female Address:[address] [place] [address], [address] * true * Date:? Generated for Janie melendez/Nu/eTransmitting on:?02/06/2025 09:59 AM EDT
--- OUTSIDE RECORDS SUMMARY | 2025-02-06 10:00 | XMS_ITS | Encounter Summary ---
Author Organization [facility] Address [address] [place] [address] Care Team Providers Care Highway Landscape Architect Name Role Phone Amita Ruiz MD Primary Care Provider [phone] Encounter Details Date Type Department Care Team (Latest Contact Info) Description 01/08/2025 8:46 AM EST - 01/08/2025 11:59 PM EST Hospital Encounter [facility] Radiation Oncology [address] [address] Discharge Disposition: Home or [...] Appointment [facility] Radiation Oncology [address] [phone] Arabella King NP [address] [place] [address] documented as of this encounter Procedures Procedure [...] on filedocumented in this encounter Care Teams Highway Landscape Architect Relationship Specialty Start Date End Date Amita Ruiz MD [address] [place] [address] PCP - General Internal Medicine 10/13/24 documented as of this encounter
== END 2025-02-06 09:26 | disposition home or self-care (01) ==
LOC: HO.HPS 09:02
PROVIDERS: PCP Internal Medicine; Visit Provider Internal Medicine Pulmonary Disease
DX: R06.00 Dyspnea, unspecified (principal); R60.0 Localized edema
CPT/HCPCS: 99214; G2211

== ENCOUNTER → 2025-02-06 09:01 | Outpatient (BNVA) | payer OTHER, SELFPAY | PROVIDERS: PCP Internal Medicine; Visit Provider Internal Medicine Pulmonary Disease | DX: R06.00 Dyspnea, unspecified (principal); R60.0 Localized edema | CPT/HCPCS: 99212 ==

== ENCOUNTER 2025-02-12 12:47 | Outpatient (REF) | payer OTHER, SELFPAY ==
--- NOTE | ~2025-02-12 | US_ITS ---
EXAMINATION: Noninvasive assessment of the bilateral lower extremities with ARTERIAL DUPLEX. CLINICAL INFORMATION: Localized edema. Concerning occlusion. TECHNIQUE: Duplex Doppler techniques with waveform analysis and measurement of velocities in the bilateral common femoral, profunda femoris, superficial femoral, popliteal and tibial arteries were performed. COMPARISON: None FINDINGS: DIRECT DUPLEX DOPPLER FINDINGS: RIGHT LEG: Common femoral artery: 185 cm/s, phasicity: Triphasic. Arrhythmia. Profunda femoris artery: 114 cm/s, phasicity: Triphasic. Arrhythmia. Superficial femoral artery (proximal): 148 cm/s, phasicity: Triphasic. Arrhythmia. Superficial femoral artery (mid): 113 cm/s, phasicity: Triphasic. Arrhythmia. Superficial femoral artery (distal): 110 cm/s, phasicity: Triphasic. Arrhythmia. Popliteal artery: 96 cm/s, phasicity: Monophasic. Spectral broadening. Arrhythmia. Posterior tibial artery: 176 cm/s, phasicity: Monophasic. Spectral broadening. Arrhythmia. Peroneal artery: No flow on color Doppler interrogation. Anterior tibial artery: 154 cm/s, phasicity: Monophasic. Spectral broadening. Arrhythmia. Dorsalis pedis artery: 176 cm/s, phasicity:Monophasic. Spectral broadening. Arrhythmia. LEFT LEG: Common femoral artery: 153 cm/s, phasicity: Triphasic. Spectral broadening. Profunda femoris artery: 75 cm/s, phasicity: Biphasic. Spectral broadening. Arrhythmia. Superficial femoral artery (proximal): 126 cm/s, phasicity: Triphasic. Arrhythmia. Superficial femoral artery (mid): 110 cm/s, phasicity: Triphasic. Spectral broadening. Arrhythmia. Superficial femoral artery (distal): 84 cm/s, phasicity: Triphasic. Arrhythmia. Popliteal artery: 107 cm/s, phasicity: Triphasic. Arrhythmia. Posterior tibial artery: 159 cm/s, phasicity: Triphasic. Spectral broadening. Arrhythmia. Peroneal artery: No flow on color Doppler interrogation. Anterior tibial artery: 248 cm/s, phasicity: Monophasic. Spectral broadening. Arrhythmia. Dorsalis pedis artery: 160 cm/s, phasicity: Monophasic. Spectral broadening. Arrhythmia. US/US arterial duplex LE BI IMPRESSION: RIGHT LOWER EXTREMITY: Severe inflow disease in the popliteal, anterior tibialis and dorsalis pedis arteries. Probable occluded peroneal artery. LEFT LOWER EXTREMITY: Severe inflow disease in the anterior tibialis and dorsalis phase artery. Probable occluded peroneal artery. Electronically signed by: Rafal Reynolds MD 02/13/2025 09:06 AM EDT RP
--- OUTSIDE RECORDS SUMMARY | 2025-02-12 14:50 | XMS_ITS ---
Author Organization [facility] Address [address] [place] [address] Phone Care Team Providers Care Fire Alarm Mechanic Name Role Phone Amita Ruiz MD Primary Care Provider [phone] Active Problems Problem Noted Date Diagnosed Date COVID-19 12/01/2024 Acute hypoxemic respiratory failure due to COVID -19 12/01/2024 Malignant neoplasm of upper- outer quadrant of right breast in female, estrogen receptor positive 11/09/2024 Cancer Staging:Pathologic:Stage IA(pT1c, pN0, cM0, G1, ER+, [place]+, HER2-) - Signed by Radha Bourgeois MD [...]
--- OUTSIDE RECORDS SUMMARY | 2025-02-12 14:50 | XMS_ITS ---
Author Organization [facility] Address [address] [place] [address] Care Team Providers Care Women'S Swim Coach Name Role Phone Amita Ruiz MD Primary Care Provider Jorje Last Jr, Arie Gibson [phone] REASON FOR VISIT pathology Encounters Encounter Location Date Provider Diagnosis [facility] [address] [place] [address] 11/04/2023 Arie Last Jr Plan Of Treatment Next Appt Details Provider Name:Arie jordan Jr, 02/15/2025 01:35:00 PM, [address], [address], [place], [address], Progress Notes * RAJ SOUZAOB:1960 ( 63 yo F)Acc No.[id number]:11/04/2023 Patient:?TIFFANY SOUZA :1960???Age:63 Y???Sex:Female Address:[address] [place] [address], [address] * true * Date:? Generated for Printi al/Nu/eTransmitting on:?02/12/2025 02:49 PM EDT
--- OUTSIDE RECORDS SUMMARY | 2025-02-12 14:50 | XMS_ITS | Encounter Summary ---
Author Organization [facility] Address [address] [place] [address] Care Team Providers Care Tree Driller Name Role Phone Amita Ruiz MD Primary Care Provider [phone] Encounter Details Date Type Department Care Team (Latest Contact Info) Description 01/16/2025 8:56 AM EST - 01/16/2025 11:59 PM [facility] Hospital Encounter [facility] Radiation Oncology [address] [phone] Arabella King NP [address] [place] [address] Malignant neoplasm of upper-outer quadrant of right [...] from the original note were not included. 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 Go to front desk associate for follow up appointment. Please call [phone] and select option #2 with any questions or concerns prior to your next visit. documented in this encounter Plan of Treatment Upcoming Encounters Date Type Department Care Team (Late st Contact Info) Description 02/15/2025 10:30 AM EDT Appointment [facility] Radiation Oncology [address] [phone] Arabella King NP [address] [place] [address] documented as of this encounter Visit Diagnoses Diagnosis Malignant neoplasm of upper-outer quadrant of right breast in female, estrogen receptor positive (CMS/HCC)- Primary documented in this encounter Care Teams Tree Driller Relationship Specialty Start Date End Date Amita Ruiz MD [address] [place] [address] PCP - General Internal Medicine 10/13/24 documented as of this encounter
--- OUTSIDE RECORDS SUMMARY | 2025-02-12 14:50 | XMS_ITS | Encounter Summary ---
Author Organization [facility] Address [address] [place] [address] Care Team Providers Care Make Up Man Name Role Phone Amita Riuz MD Primary Care Provider [phone] Reason for Visit * Reason Comments OTV Encounter Details Date Type Department Care Team (Latest Contact Info) Description 01/12/2025 8:52 AM EST - 01/12/2025 11:59 PM EST Hospital Encounter [facility] Radiation Oncology [address] [phone] Radha Bourgeois MD [address] [place] [address] Malignant neoplasm of upper-outer quadrant of right [...] Bourgeois MD - 01/12/2025 9:10 AM EST [address] [phone] Radiation Oncology On Treatment Visit Patient Name: [...] Stage IA (pT1c, pN0, cM0, G1, ER+, [place]+, HER2-) - Signed by Radha Bourgeois MD on 11/09/2024 Diagnosis: Right breast (UOQ) invasive ductal carcinoma, ER/MN positive, Her2 negative 09/20/24 --right breast Lumpectomy with Dr. Crenshaw. Low Oncotype per pt Oct 2024 - started Letrozole Interval/Dose History: 3D GRAPHIC DESIGN ASSISTANT: Right Breast Treatment Period Technique Fraction Dose [...] had treatment break due to admission at [facility] due to leg swelling. Mild [...] Info) Description 02/15/2025 10:30 AM EDT Appointment [facility] Radiation Oncology [address] [address] Arabella King NP [address] [place] [address] documented as of this encounter Visit Diagnoses [...] min. added in this encounter Care Teams Make Up Man Relationship Specialty Start Date End Date Amita Ruiz MD [address] [facility] [place] [address] PCP - General Internal Medicine 10/13/24 documented as of this encounter
--- OUTSIDE RECORDS SUMMARY | 2025-02-12 14:50 | XMS_ITS ---
Author Organization [facility] Address [address] [place] [address] Care Team Providers Care Traffic Manager Name Role Phone Amita Ruiz MD Primary Care Provider Jorje Last Jr, Arie Gibson REASON FOR VISIT Appointment Encounters Encounter Location Date Provider Diagnosis [facility] [address] [place] [address] 02/08/2025 Arie Last Jr Plan Of Treatment Next Appt Details Provider Name:Arie jordan Jr, 02/15/2025 01:35:00 PM, [address], [address], [place], [address], Progress Notes * RAJ SOUZAOB:1960 ( 64 yo F)Acc No.[id number]:02/08/2025 Patient:?TIFFANY SOUZA :1960???Age:64 Y???Sex:Female Address:[address] [place] [address], [address] * true * Date:? Generated for Printi al/Nu/eTransmitting on:?02/12/2025 02:49 PM EDT
--- OUTSIDE RECORDS SUMMARY | 2025-02-12 14:50 | XMS_ITS ---
Author Organization [facility] Address [address] [facility] [address] [place] [address] Care Team Providers Care Opthalmic Tech Name Role Phone Amita Ruiz MD Primary Care Provider Arie Eduardo Jr [phone] REASON FOR VISIT screening Encounters Encounter Location Date Provider Diagnosis [facility] [address] [place], [place] [id number] 10/26/2023 Arie Last Jr Encounter for screening colonoscopy Z12.11 and Colon polyps K63.5 Assessments Encounter Date Diagnosis (ICD Code) Assessment Notes Treatment Notes Treatment Clinical Notes Section Notes 10/26/2023 Encounter for screening colonoscopy (ICD-10 - Z12.11) 10/26/2023 Colon polyps (ICD-10 - K63.5) Plan Of Treatment Next Appt Details Provider Name:Arie jordan Jr, 02/15/2025 01:35:00 PM, [address] [facility], [address] [facility], [place], [address], Progress Notes * RAJ SOUZAOB:1960 ( 64 yo F)Acc No.[id number]:10/26/2023 COLON WITH MAC Patient:?TIFFANY SOUZA Provider:?Arie Last MD :1960???Age:63 Y???Sex:Female D ate:10/26/2023 Address:[address] [place], [place] [id number] Pcp:Amita Ruiz MD Subjective: * Chief Complaints: * ???1. Screening. * Medical History:? Objective: * Vitals:? Assessment: * Assessment: 1.?Encounter for screening c olonoscopy - Z12.11 (Primary)???2.?Colon polyps - K63.5??? Plan: * Treatment: * Procedure Codes:?62170 LESIO N REMOVAL COLONOSCOPY, 66917 COLONOSCOPY AND BIOPSY, Modifiers: 59 * * The named appointment provid er may or may not be the originator of this progress note, and it is not deemed complete until electronically signed by the appointment provider. Sign off status: Pending * Provider:?Arie Last MD Date:?1 12/26/2022 Generated for Janie melendez/Nu/Yvroseitting on:?02/12/2025 02:50 PM EDT
--- OUTSIDE RECORDS SUMMARY | 2025-02-12 14:50 | XMS_ITS | Clinical Summary ---
Author Organization [facility] Address [address] [place] [address] Phone Care Team Providers Care Geophysical Data Technician Name Role Phone Amita Ruiz MD Primary Care Provider [phone] Allergies Active Allergy Reactions Criticality Noted Date [...] Cancer Staging:Pathologic:Stage IA(pT1c, pN0, cM0, G1, ER+, AR+, HER2-) - [...] - 01/16/2025 11:59 PM EST Hospital Encounter [facility] Radiation Oncology [address] [place] [phone] Arabella King NP Malignant neoplasm of upper-outer quadrant of right breast in female, estrogen receptor positive (CMS/HCC) (Primary Dx) Discharge Disposition: Home or Self Care 01/16/2025 8:24 AM EST - 01/16/2025 11:59 PM EST Hospital Encounter [facility] Radiation Oncology [address] [place] [phone] Discharge Disposition: Home or Self Care 01/15/2025 8:25 AM EST - 01/15/2025 11:59 PM EST Hospital Encounter [facility] Radiation Oncology [address] [place] [phone] Discharge Disposition: Home or Self Care 01/12/2025 8:52 AM EST - 01/12/2025 11:59 PM EST Hospital Encounter [facility] Radiation Oncology [address] [place] [phone] Radha Bourgeois MD Malignant neoplasm of upper-outer quadrant of right breast in female, estrogen receptor positive (CMS/HCC) (Primary Dx) Discharge Disposition: Home or Self Care 01/12/2025 8:29 AM EST - 01/12/2025 11:59 PM EST Hospital Encounter [facility] Radiation Oncology [address] [place] [phone] Discharge Disposition: Home or Self Care 01/11/2025 2:03 PM EST - 01/11/2025 11:59 PM EST Hospital Encounter [facility] Radiation Oncology [address] [place] [phone] Discharge Disposition: Home or Self Care 01/10/2025 8:36 AM EST - 01/10/2025 11:59 PM EST Hospital Encounter [facility] Radiation Oncology [address] [place] [phone] Discharge Disposition: Home or Self Care 01/09/2025 8:26 AM EST - 01/09/2025 11:59 PM EST Hospital Encounter [facility] Radiation Oncology [address] [place] [phone] Discharge Disposition: Home or Self Care 01/08/2025 8:46 AM EST - 01/08/2025 11:59 PM EST Hospital Encounter [facility] Radiation Oncology [address] [place] [phone] Discharge Disposition: Home or Self Care 01/05/2025 8:46 AM EST - 01/05/2025 11:59 PM EST Hospital Encounter [facility] Radiation Oncology [address] [place] [phone] Radha Bourgeois MD Malignant neoplasm of upper-outer quadrant of right breast in female, estrogen receptor positive (CMS/HCC) (Primary Dx) Discharge Disposition: Home or Self Care 01/05/2025 8:27 AM EST - 01/05/2025 11:59 PM EST Hospital Encounter [facility] Radiation Oncology [address] [place] [phone] Discharge Disposition: Home or Self Care 01/04/2025 8:57 AM EST - 01/04/2025 11:59 PM EST Hospital Encounter [facility] Radiation Oncology [address] [place] [phone] Discharge Disposition: Home or Self Care 01/03/2025 8:32 AM EST - 01/03/2025 11:59 PM EST Hospital Encounter [facility] Radiation Oncology [address] [place] [phone] Discharge Disposition: Home or Self Care 01/02/2025 8:47 AM EST - 01/02/2025 11:59 PM EST Hospital Encounter [facility] Radiation Oncology [address] [place] [phone] Discharge Disposition: Home or Self Care 01/01/2025 8:28 AM EST - 01/01/2025 11:59 PM EST Hospital Encounter [facility] Radiation Oncology [address] [place] [phone] Discharge Disposition: Home or Self Care 12/21/2024 8:35 AM EST - 12/21/2024 11:59 PM EST Hospital Encounter [facility] Radiation Oncology [address] [place] [phone] Discharge Disposition: Home or Self Care 12/20/2024 8:41 AM EST - 12/20/2024 11:59 PM EST Hospital Encounter [facility] Radiation Oncology [address] [place] [phone] Discharge Disposition: Home or Self Care 12/19/2024 8:52 AM EST - 12/19/2024 11:59 PM EST Hospital Encounter [facility] Radiation Oncology [address] [place] [phone] Discharge Disposition: Home or Self Care 12/18/2024 11:15 AM EST - 12/18/2024 11:59 PM EST Hospital Encounter [facility] Radiation Oncology [address] [place] [phone] Pari Martinez MD Discharge Disposition: Home or Self Care 12/18/2024 10:53 AM EST - 12/18/2024 11:59 PM EST Hospital Encounter [facility] Radiation Oncology [address] [place] [phone] Discharge Disposition: Home or Self Care 12/01/2024 11:09 AM EST - 12/01/2024 11:59 PM EST Hospital Encounter [facility] Radiation Oncology [address] [place] [phone] Discharge Disposition: Home or Self Care 12/01/2024 9:30 AM EST - 12/07/2024 4:56 PM EST Hospital Encounter [facility] Intermediate Care Unit [address] [place] [phone] Josh Carranza MD Kela, Kashyap Devendrabhai, MD Rasul, Yar M, MD Surendran, Anupama, MD COVID (Primary Dx); Peripheral edema Discharge Disposition: Home-Health Care [facility] 12/01/2024 Telephone [facility] Radiation Oncology [address] [phone] Hyacinth Pinzon RN has covid 11/16/2024 10:00 AM EST - 11/16/2024 11:59 PM EST Hospital Encounter [facility] Radiation Oncology [address] [phone] Radha Bourgeois MD Malignant neoplasm of right breast in female, estrogen receptor positive, unspecified site of breast (CMS/HCC) Discharge Disposition: Home or Self Care 11/16/2024 9:13 AM EST - 11/16/2024 11:59 PM EST Hospital Encounter [facility] Radiation Oncology [address] [phone] Malignant neoplasm of upper-outer quadrant of right breast in female, estrogen receptor positive (CMS/HCC) (Primary Dx) Discharge Disposition: Home or Self Care from Last 3 Months Surgical History Surgery Date Site/Laterality Comments COLONOSCOPY BREAST LUMPECTOMY 09/20/2024 Right PARTIAL HYSTERECTOMY THYROIDECTOMY CYSTOSCOPY Medical History Medical History Date Comments Cancer (CMS/HCC) Gout A-fib ([facility]/HCC) Thyroid cancer ([facility]/HCC) Sleep apnea Reflux esophagitis Family History Medical [...] Info) Description 02/15/2025 10:30 AM EDT Appointment [facility] Radiation Oncology [address] [facility] [address] [place] [phone] Arabella King NP [address] [place], [place] [phone] Health Maintenance Due Date Last Done Comments [...] GY ORDERABLES Final Result Performing Organization Address City/[facility] Co de Phone Number MOSAIQ RADIATION [...] GY ORDERABLES Final Result Performing Organization Address City/[facility] Co de Phone Number MOSAIQ RADIATION [...] GY ORDERABLES Final Result Performing Organization Address City/[facility]/ZIP Co de Phone Number MOSAIQ RADIATION [...] GY ORDERABLES Final Result Performing Organization Address City/[facility] Co de Phone Number MOSAIQ RADIATION [...] GY ORDERABLES Final Result Performing Organization Address City/[facility]/ZIP Co de Phone Number MOSAIQ RADIATION [...] CENTER LAB RBC 3.30(L) 3.80 - 4.80 M/[facility] LAB HEMETOLOGY METHOD 12/07/2024 7:21 AM [...] 7:21 AM EST [facility] Eosinophils Absolute 0.00 0.00 - 0.50 K/[facility] LAB HEMETOLOGY METHOD 12/07/2024 7:21 [...] BLOOD ORDERABLES Final Result Performing Organization Address City/[facility]/ZIP Co de Phone Number [facility] [address] [place] [address], [place] [phone] * Folate (12/07/2024 6:02 AM EST) [facility] Folate 13.9 2.8 - 17.0 ng/ml LAB CHEMISTRY METHOD 12/07/2024 9:35 AM EST [facility] Blood Venous blood specimen / Unknown Venipuncture / Unknown 12/07/2024 6:02 AM EST 12/07/2024 6:49 AM EST Nuria Marie MD LAB BLOOD ORDERABLES Final Result [facility] [address] [place] [address], [place] [phone] * Vitamin B12 (12/07/2024 6:02 AM EST) [facility] Vitamin B-12 698 250 - 900 pcg/mL LAB CHEMISTRY METHOD 12/07/2024 9:59 AM [facility] LAB Blood Venous blood specimen / Unknown Venipuncture / Unknown 12/07/2024 6:02 AM EST 12/07/2024 6:49 AM EST Nuria Marie MD LAB BLOOD ORDERABLES Final Result [facility] [address] [place] [address], * (ABNORMAL) Basic metabolic panel (12/07/2024 6:02 [...] 7:57 AM EST [facility] Calcium 8.7 8.5 - 10.5 mg/dL LAB CHEMISTRY METHOD 12/07/2024 7:57 AM EST [facility] Blood Venous blood specimen / Unknown Venipuncture / Unknown 12/07/2024 6:02 AM EST 12/07/2024 6:49 AM EST us Milagro WEBBER LAB BLOOD ORDERABLES Final Result [facility] [address] [place] [address], [place] [phone] * TRANSTHORACIC ECHOCARDIOGRAM (TTE) COMPLETE W/ CONTRAST (12/05/2024 11:01 AM EST) Left Atrium Minor King 5.6 cm CV PACS Left Atrium Major King 5.5 cm CV PACS LA Area Sys [...] LAB CHEMISTRY METHOD 12/05/2024 7:40 AM EST [facility] Blood Venous blood specimen / Unknown Venipuncture / Unknown 12/05/2024 6:19 AM EST 12/05/2024 6:59 AM EST Milagro WEBBER LAB BLOOD ORDERABLES Final Result RAYMUNDO REINOSO [place] ([facility]) [facility] [address] [place] [address], [place] [phone] * XR Chest 1 View (12/03/2024 7:33 PM EST) Anatomical Region Laterality Modality Body Radiographic Dahiana ging 12/04/2024 9:28 AM EST Impressions 12/04/2024 9:32 AM EST Impression: 1. Stable right hemidiaphragmatic elevation since 2019. 2. Lungs grossly clear. Telerad AKBAR ([id number]) -------- FINAL REPORT -------- Dictated By: Keiko Dyson Dictated Date: 12/04/2024 09:28 ET Assigned Physician: Keiko Dyson Reviewed and Electronically Signed By: Keiko Dyson Signed Date: 12/04/2024 09:32 ET Workstation ID: [id number] Transcribed By: Self Edit Transcribed Date: 12/04/2024 [...] 2019. 2. Lungs grossly clear. Telelula WEBBER ([id number]) -------- FINAL REPORT -------- Dictated By: Keiko Dyson Dictated Date: 12/04/2024 09:28 ET Assigned Physician: Keiko Dyson Reviewed and Electronically Signed By: Keiko Dyson Signed Date: 12/04/2024 09:32 ET Workstation ID: [id number] Transcribed By: Self Edit Transcribed Date: 12/04/2024 09:28 ET Angelic WEBBER IMG XR PROCEDURES Final Result * ECG 12 lead (12/03/2024 7:00 PM EST) Only the most recent of2 resultswithin the time period is included. Ventricular Rate ECG 101 BPM GEMUSE Atrial Rate 125 BPM GEMUSE QRS Duration 142 ms GEMUSE Q-T Interval 390 ms GEMUSE QTc 505 ms GEMUSE R King 79 degrees GEMUSE T King 33 degrees GEMUSE ECG Interpretation Atrial fibrillation with rapid ventricular response Right bundle branch block Abnormal ECG When compared with ECG of 01-DEC-2024 09:55, No significant change was found Confirmed by FLORENTIN VANEGAS ([id number]) on 12/04/2024 4:35:43 PM GEMUSE 12/03/2024 7:00 PM EST 12/04/2024 4:35 PM EST us Raheel WEBBER ECG ORDERABLES Final Res ult [...] if any concentrations <2.0 ng/mL are obtained. [facility] BLOOD ORDERABLES Sandee l Result Performing Organization Address City/[facility]/ZIP Co de Phone Number [facility] [address] [place] [address], [place] [phone] * Thyroid stimulating hormone (12/02/2024 9:18 AM EST) [facility] TSH 1.95 0.40 - 4.00 mcIU/mL LAB CHEMISTRY METHOD 12/02/2024 11:45 AM EST [facility] Blood Venous blood specimen / Unknown Venipuncture / Unknown 12/02/2024 9:18 AM EST 12/02/2024 9:44 AM EST [facility] LAB BLOOD ORDERABLES Sandee l Result Performing Organization Address [facility]/ZIP Co de Phone Number [facility] [address] [place] [address], [place] [phone] * Lactate (12/02/2024 9:18 AM EST) Only the most recent of2 resultswithin the time period is included. [facility] Lactate 1.4 0.4 - 2.0 mmol/L LAB CHEMISTRY METHOD 12/02/2024 10:08 AM EST [facility] Blood Venous blood specimen / Unknown Venipuncture / Unknown 12/02/2024 9:18 AM EST 12/02/2024 9:45 AM EST Raheel WEBBER LAB BLOOD ORDERABLES Sandee l Result Performing Organization Address City/[facility]/ZIP Co de Phone Number [facility] [address] [place] [address], [place] [phone] * Culture blood (12/01/2024 4:05 PM EST) Only the most recent of2 resultswithin the time period is included. [facility] Culture, Blood No growth at 5 days 12/06/2024 5:01 PM EST [facility] Blood Venous blood specimen / Unknown Venipuncture / Unknown 12/01/2024 4:05 PM EST 12/01/2024 4:13 PM EST Giovana WEBBER LAB MICROBIOLOGY - GENERAL OR DERABLES Final Result Performing Organization Address City/[facility]/ZIP Co de Phone Number [facility] [address] [place] [address], [place] [phone] * (ABNORMAL) Prothrombin time with INR (12/01/2024 2:57 PM EST) [facility] Protime 19.8(H) 10.6 - 13.9 sec LAB COAGULATION METHOD 12/01/2024 3:24 PM [facility] INR 1.6 LAB COAGULATION METHOD 12/01/2024 3:24 PM [facility] LAB Blood Venous blood specimen / Unknown Venipuncture / Unknown 12/01/2024 2:57 PM EST 12/01/2024 3:02 PM EST Giovana WEBBER LAB BLOOD ORDERABLES Final Re sult Performing Organization Address [facility]/ZIP Co de Phone Number [facility] [address] [place] [address], [place] [phone] * (ABNORMAL) B-type natriuretic peptide (12/01/2024 2:57 PM EST) BNP 542(H) <=100 pcg/mL LAB CHEMISTRY METHOD 12/01/2024 3:42 PM EST [facility] Blood Venous blood specimen / Unknown Venipuncture / Unknown 12/01/2024 2:57 PM EST 12/01/2024 3:02 PM EST Giovana WEBBER LAB BLOOD ORDERABLES Final Re sult Performing Organization Address [facility] Co de Phone Number [facility] [address] [place] [address], [place] [phone] * CT Angio Chest wo and/or w [...] Signed Date: 12/01/2024 11:56 ET Workstation ID: [id number] Transcribed By: Self Edit Transcribed Date: 12/01/2024 [...] Signed Date: 12/01/2024 11:56 ET Workstation ID: [id number] Transcribed By: Self Edit Transcribed Date: 12/01/2024 11:53 [address]n WEBBER IMG CT PROCEDURES Final Resul t * Troponin I high sensitivity (12/01/2024 10:12 AM EST) [facility] High Sensitivity Troponin I 7 <=54 [...] Final Result [facility] [address] [place] [address], * Vitamin B12 and folate (12/01/2024 10:12 AM EST) [facility] Vitamin B-12 468 250 - 900 pcg/mL LAB CHEMISTRY METHOD 12/01/2024 4:12 PM EST [facility] Folate 10.4 2.8 - 17.0 ng/ml LAB CHEMISTRY METHOD 12/01/2024 4:12 PM EST [facility] Blood Venous blood specimen / Unknown Venipuncture / Unknown 12/01/2024 10:12 AM EST 12/01/2024 10:30 AM EST us Giovana WEBBER LAB BLOOD ORDERABLES Final Re sult [facility] [address] [place] [address], * (ABNORMAL) Manual differential (12/01/2024 10:12 AM [...] 11:16 AM EST [facility] Rbc Morphology Present( A) Consistent with indices, Normal for LAB HEMETOLOGY METHOD 12/01/2024 11:16 AM EST [facility] Comment:RBC: Morphology agre es with CBC Platelet Morphology - WAM See Note(A) Normal LAB HEMETOLOGY METHOD 12/01/2024 11:16 AM EST [facility] Comment:PLT: Normal Polychromasia Present Present( A) (none) LAB HEMETOLOGY METHOD 12/01/2024 11:16 AM [facility] Blood Venous blood specimen / Unknown Venipuncture / Unknown 12/01/2024 10:12 AM EST 12/01/2024 10:30 AM EST Ailyn WEBBER LAB BLOOD ORDERABLES Final Re sult [facility] [address] [place] [address], [place] [phone] * (ABNORMAL) Iron and TIBC (12/01/2024 10:12 AM EST) Iron 19(L) 40 - 150 mcg/dL LAB CHEMISTRY METHOD 12/01/2024 2:49 PM EST [facility] TIBC 428 250 - 450 mcg/dL LAB CHEMISTRY METHOD 12/01/2024 2:49 PM [facility] Iron Saturation 4(L) 15 - 50 % LAB CHEMISTRY METHOD 12/01/2024 2:49 PM EST [facility] Blood Venous blood specimen / Unknown Venipuncture / Unknown 12/01/2024 10:12 AM EST 12/01/2024 10:30 AM EST Giovana WEBBER LAB BLOOD ORDERABLES Final Re sult Performing Organization Address City/[facility]/ZIP Co de Phone Number [facility] [address] [place] [address], * Ferritin (12/01/2024 10:12 AM EST) [facility] Ferritin 31 8 - 252 ng/mL LAB CHEMISTRY METHOD 12/01/2024 3:23 PM [facility] Blood Venous blood specimen / Unknown Venipuncture / Unknown 12/01/2024 10:12 AM EST 12/01/2024 10:30 AM EST Giovana WEBBER LAB BLOOD ORDERABLES Final Re sult Performing Organization Address [facility]/ZIP Co de Phone Number [facility] [address] [place] [address], * Hepatic function panel (12/01/2024 10:12 AM EST) [facility] Total Protein 6.5 6.0 - 8.0 [...] 2:37 PM EST [facility] Alkaline Phosphatase 68 42 - 121 unit/L LAB CHEMISTRY METHOD 12/01/2024 2:37 PM [facility] Blood Venous blood specimen / Unknown Venipuncture / Unknown 12/01/2024 10:12 AM EST 12/01/2024 10:30 AM EST us Giovana WEBBER LAB BLOOD ORDERABLES Final Re sult [facility] [address] [place] [address], [place] [phone] * (ABNORMAL) Respiratory virus panel molecular study [...] 12/01/2024 10:06 AM EST 12/01/2024 10:13 AM [facility] - 12/01/2024 11:43 AM EST Testing was performed using the [employer] Respiratory Pathogen PCR Assay. All results must [...] - GENERAL OR DERABLES Final Result RAYMUNDO REINOSO [place] ([facility]) HOSPITAL LAB [address] [place] [address], [place] [phone] * ECG-Outside (12/01/2024) Only the most recent of2 resultswithin the time period is included. us Provider Onbase MD ECG ORDERABLES Final Result * ECG-Annotated (12/01/2024) us Provider Onbase MD ECG ORDERABLES Final Result from Last 3 Months Insurance [facility] Advance Directives * Full Code - Confirmed [...] currently active code status orders. Care Teams Geophysical Data Technician Relationship Specialty Start Date End Date Amita Ruiz MD [address] [place] [phone] PCP - General Internal Medicine 10/13/24
--- OUTSIDE RECORDS SUMMARY | 2025-02-12 14:50 | XMS_ITS | Encounter Summary ---
Author Organization [facility] Address [address] [place] [address] Care Team Providers Care Sausage Cooker Name Role Phone Amita Ruiz MD Primary Care Provider [phone] Encounter Details Date Type Department Care Team (Latest Contact Info) Description 01/15/2025 8:25 AM EST - 01/15/2025 11:59 PM EST Hospital Encounter [facility] Radiation Oncology [address] [phone] Discharge Disposition: Home or Self [...] Info) Description 02/15/2025 10:30 AM EDT Appointment [facility] Radiation Oncology [address] [phone] Arabella King NP [address] [place] [address] documented as of this encounter Procedures Procedure [...] on filedocumented in this encounter Care Teams Sausage Cooker Relationship Specialty Start Date End Date Amita Ruiz MD [address] [place] [phone] PCP - General Internal Medicine 10/13/24 documented as of this encounter
--- OUTSIDE RECORDS SUMMARY | 2025-02-12 14:50 | XMS_ITS | Encounter Summary ---
Author Organization [facility] Address [address] [place] [address] Care Team Providers Care Furniture Finisher Name Role Phone Amita Ruiz MD Primary Care Provider Encounter Details Date Type Department Care Team (Latest Contact Info) Description 01/12/2025 8:29 AM EST - 01/12/2025 11:59 PM EST Hospital Encounter [facility] Radiation Oncology [address] [phone] Discharge Disposition: Home or Self [...] Info) Description 02/15/2025 10:[address] [facility] Radiation Oncology [address] [phone] Arabella King NP [address] [place] [address] documented as of this encounter Procedures Procedure [...] on filedocumented in this encounter Care Teams Furniture Finisher Relationship Specialty Start Date End Date Amita Ruiz MD [address] [place] [phone] PCP - General Internal Medicine 10/13/24 documented as of this encounter
--- OUTSIDE RECORDS SUMMARY | 2025-02-12 14:50 | XMS_ITS | Encounter Summary ---
Author Organization [facility] Address [address] [place] [address] Care Team Providers Care Commercial Account Officer Name Role Phone Amita Ruiz MD Primary Care Provider [phone] Encounter Details Date Type Department Care Team (Latest Contact Info) Description 01/16/2025 8:24 AM EST - 01/16/2025 11:59 PM EST Hospital Encounter [facility] Radiation Oncology [address] [phone] Discharge Disposition: Home or Self [...] Info) Description 02/15/2025 10:30 AM EDT Appointment [facility] Radiation Oncology [address] [phone] Arabella King NP [address] [place] [address] documented as of this encounter Procedures Procedure [...] on filedocumented in this encounter Care Teams Commercial Account Officer Relationship Specialty Start Date End Date Amita Ruiz MD [address] [place] [phone] PCP - General Internal Medicine 10/13/24 documented as of this encounter
--- OUTSIDE RECORDS SUMMARY | 2025-02-12 14:50 | XMS_ITS | Patient Health Record ---
Author Organization [facility] Address [address] [place] [address] Care Team Providers Care Towboat Pilot Name Role Phone Amita Ruiz MD Primary Care Provider Arie Eduardo Jr Unavailable Allergies Allergen (clinical drug ingredient) Drug/Non Drug [...] Problem Status W/U Status Risk Notes Problem 865214584 Colon cancer screening (Z12.11) Active confirmed Problem 24121125 Irritable bowel syndrome with both constipation and diarrhea (K58.2) Active confirmed Encounters Encounter Location Date Provider Diagnosis [facility] [address] [place] [address] 02/08/2025 Arie Last Jr Plan Of Treatment Future Test Test Name Order Date COLONOSCOPY 09/20/2023 Next Appt Details Provider Name:Arie jordan Jr, 02/15/2025 01:35:00 PM, [address], [address], [place], [address], Insurance Providers Payer Name Payer Address Payer Phone Subscriber Number Group Number Insured Name Patient Relationship to Insured Coverage Start Date Coverage End Date [facility] [address] [place] [address] [id number] TIFFANY SOUZA Self - patient is the insured Medical (General) History Medical History History ICD Code Hypertension Papillary thyroid carcinoma Uterine fibroids Microscopic hematuria QAMAR/CPAP Osteoporosis Atrial fibrillation Surgical History Surgery Date(Month/Year) Thyroidectomy, lymph node exploration an d removal partial hysterectomy 2016 Hospitalization History Reason Date(Month/Year) Atrial fibrillation with rapid ventricul ar response 01/21
== END 2025-02-12 12:48 | disposition home or self-care (01) ==
LOC: HO.US 12:47
PROVIDERS: PCP Internal Medicine
DX: R60.0 Localized edema (principal)
CPT/HCPCS: 93925

== ENCOUNTER → 2025-02-12 12:48 | Outpatient (BNV) | payer OTHER, SELFPAY | PROVIDERS: PCP Internal Medicine; Visit Provider Radiology Diagnostic Radiology | DX: I73.9 Peripheral vascular disease, unspecified (principal) | CPT/HCPCS: 93925 ==

== ENCOUNTER 2025-02-16 09:34 | Outpatient (REF) | payer OTHER, SELFPAY ==
[2025-02-16 13:38] LABS: Appearance Urine Turbid; Color Urine Yellow; Glucose Urine UA >=1000 mg/dL (Negative); Leukocyte Esterase Urine Moderate (2+) (Negative); Nitrite Urine Positive (Negative); PH 6.5 (5.0-9.0); Specific Gravity - Urine 1.025 (1.005-1.025); UMIC TRIGGER UA YES; Urine Blood Small (1+) (Negative); Urine Ketones Negative (Negative); Urine Protein Trace mg/dL (Neg-Trace)
[2025-02-16 13:44] LABS: Bacteria Urine 4+ (None Seen); Hyaline Casts Urine 0-2 /LPF (0-2); RBC Urine >20 /HPF (0-2); WBC Urine >50 /HPF (0-5)
[2025-02-16 13:58] LABS: Alanine Aminotransferase 15 U/L (0-31); Albumin Level 3.9 g/dL (3.5-5.0); Alkaline Phosphatase 79 U/L (39-117); Aspartate Amino Transferase 18 U/L (5-31); Bilirubin Direct 0.2 mg/dL (0.0-0.5); Bilirubin Total 0.4 mg/dL (0.0-1.0); Blood Urea Nitrogen 27 mg/dL (9-16); Calcium 10.1 mg/dL (8.4-10.2); Cholesterol 182 mg/dL (<200); Estimated Glomerular Filt Rate 56; Glucose Fasting 174 mg/dL (60-99); HDL Cholesterol 47 mg/dL (>40); Iron 33 mcg/dL (30-160); LDL Cholesterol Calculated 95 mg/dL (<100); Percent Iron Saturation 8 % (15-50); Total Iron Binding Capacity 411 mcg/dL (228-428); Triglycerides 202 mg/dL (<150); Unsaturated Iron Binding 378 ug/dL; Uric Acid 6.8 mg/dL (2.4-5.7)
[2025-02-16 14:17] LABS: TSH reflex Free T4 4.84 uIU/mL (0.32-4.0)
[2025-02-16 14:20] LABS: Anion Gap 17 (12-20)
[2025-02-16 14:26] LABS: Carbon Dioxide 38 mmol/L (22-29); Chloride 89 mmol/L (96-108); Potassium 2.9 mmol/L (3.3-5.1); Sodium 141 mmol/L (135-145)
[2025-02-16 14:47] LABS: Free T4 (Free Thyroxine) 1.44 ng/dL (0.71-1.85)
== END 2025-02-16 09:35 | disposition home or self-care (01) ==
LOC: HO.HMGCLDS 09:34
PROVIDERS: PCP Internal Medicine; Referring Provider Internal Medicine Cardiovascular Disease; Visit Provider Internal Medicine
DX: D64.9 Anemia, unspecified (principal); I48.20 Chronic atrial fibrillation, unspecified; I10 Essential (primary) hypertension; E03.9 Hypothyroidism, unspecified; R30.0 Dysuria; M10.9 Gout, unspecified; Z51.81 Encounter for therapeutic drug level monitoring
CPT/HCPCS: 36415; 80053; 80061; 80076; 81001; 82248; 83540; 84439; 84443; 84550; 87086; 87088; 87186

== ENCOUNTER 2025-02-16 16:01 | Emergency (ER) | payer OTHER, SELFPAY ==
[2025-02-16 16:54] VITALS: BP 137/45; PULSE 80; RESP 16; TEMP 36.6; O2SAT 94; BMI 47.1
--- NOTE | 2025-02-16 16:54 | ED_ITS ---
HPI - Recheck/Abnormal Lab/Rx General Chief Complaint: Recheck/Abnormal Lab/Rx Stated Complaint: DrFrankie referred to ED critical K level Time Seen by Provider: 02/16/25 23:28 Source: patient Mode of arrival: ambulatory Limitations: no limitations History of Present Illness ED Provider: HPI narrative: Patient is sent by PCP for potassium level of 2.9 patient is on torsemide not taking any potassium supplements patient has had hypokalemia in 12/23 also patient is asymptomatic otherwise repeat potassium level today was 3.2 patient has had few Mandarin earlier today Related Data Home Medications ?Medication ?Instructions ?Recorded ?Confirmed levothyroxine 125 mcg tablet 250 mcg PO LESLIE@0630 09/13/24 01/25/25 rivaroxaban 20 mg tablet (Xarelto) 20 mg PO DAILY@1700 09/13/24 01/25/25 amiodarone 200 mg tablet 200 mg PO DAILY 11/13/24 01/25/25 alendronate 70 mg tablet 70 mg PO SA@0900 12/21/24 01/25/25 levothyroxine 125 mcg tablet 125 mcg MOTUWETHFRSA 12/21/24 01/25/25 letrozole 2.5 mg tablet 2.5 mg PO DAILY 01/25/25 01/25/25 Previous Rx's ?Medication ?Instructions ?Recorded diltiazem HCl 30 mg tablet 30 mg PO BID #60 tabs 12/29/24 empagliflozin 10 mg tablet 10 mg PO DAILY #30 tabs 12/29/24 (Jardiance) eulalio #1 ea 12/29/24 metoprolol tartrate 100 mg tablet 100 mg PO BID #180 tabs 01/12/25 allopurinol 300 mg tablet 300 mg PO DAILY #90 tabs 01/25/25 colchicine 0.6 mg capsule 0.6 mg PO DAILY #40 caps 01/25/25 torsemide 20 mg tablet 40 mg (2 x 20 mg) PO BID #90 tabs 01/25/25 metolazone 10 mg tablet 10 mg PO .Wednesday #14 02/06/25 tabs nitrofurantoin 100 mg PO Q12H 7 days #14 caps 02/16/25 monohydrate/macrocrystals 100 mg capsule (Macrobid) omeprazole 20 mg capsule,delayed 20 mg PO DAILY PRN for acid reflux 02/16/25 release #90 caps potassium chloride 20 mEq 20 meq PO BID #60 tabs 02/16/25 tablet,extended release Allergies Allergy/AdvReac Type Severity Reaction Status Date / Time erythromycin base Allergy Intermediate Abdominal Verified 02/16/25 16:56 Pain lisinopril Allergy Intermediate Rash Verified 02/16/25 16:56 Review of Systems 2 Review of Systems: Yes all other systems are reviewed and are negative [facility] Past Medical History Medical History (HFpEF) heart failure with preserved ejection fraction Arthritis HX: breast cancer SOB (shortness of breath) On anticoagulant therapy Invasive ductal carcinoma of right breast in female A-fib Hypothyroid Osteoporosis Urethral stenosis Depression with anxiety Thyroid cancer Acid reflux Kidney stone QAMAR (obstructive sleep apnea) Hypertension Knee pain, left Surgical History History of lumpectomy of right breast (09/20/24) Hx of dilation of urethra Hx of cystoscopy H/O colonoscopy History of partial hysterectomy History of thyroidectomy Family History Family History Mother Lung cancer Father HTN (hypertension) Melanoma Social History Social History Household Members: Spouse Housing: House Are you a primary director of patient care to a significant other at home: No Do you presently have visiting nurse or other home services: No Alcohol intake: current Alcohol intake frequency: does not drink Patient Tobacco Use Status: Never used Tobacco e-Cigarette/Vaping Use: Never Used Advance Directives: No Advance Directives Information Provided: Yes service: No Current occupational status: unemployed Current occupation: right handed Cognitive needs: No Hearing needs: No Vision needs: Yes Physical Exam 2 Vital Signs: Vital Signs: Last Vital Signs Temp 97.9 F 02/16/25 16:54 Pulse 80 02/16/25 16:54 Resp 16 02/16/25 16:54 BP 137/45 L 02/16/25 16:54 Pulse Ox 94 02/16/25 16:54 O2 Del Method Room Air 02/16/25 16:54 BMI result Body Mass Index 47.1 Appearance: Alert. Oriented X3. No acute distress. Eyes: No pallor or icterus ENT: Pharynx normal. Oral Mucosa moist Neck: Normal inspection. Neck supple. CVS: Normal heart rate and rhythm. Pulses normal. Respiratory: No respiratory distress. Equal air entry bilateral, no wheezing/rales/rhonchi Abdomen: Soft and nontender. Bowel sounds are present, no mass palpable, no CVA tenderness Skin: Skin warm and dry. Normal skin color. Normal skin turgor. Extremities: No lower extremity edema. No calf tenderness Neuro: Oriented X 3. No motor deficit. No sensory deficit.No cerebellar signs , cranial nerves II-XII intact Course Course Course Narrative: This is a Rapid Medical Exam performed in triage by Liliana Crockett PA-C. Full HPI, ROS and PE to be performed by primary ED provider. 64-year-old female with a past medical history anemia, gout, CHF, QAMAR, HTN, AFib Xarelto, on 2L NC presenting to the ED c/o sent in by Dr. Galarza for low K+2.9 noted on labs today. admits to chronic SOB. PE: talking in complete sentences, nontoxic appearing, ambulating with steady gait. On baseline O2 Plan: EKG, labs Medical Decision Making Medical Decision Making MDM Narrative: Patient with mild hypokalemia secondary to diuretics will give extra dose of potassium bicarbonate 50 mEq in the ER patient has already been prescribed for Potassium tablets by PCP which she will continue take labs will be rechecked in 3 days by the PCP. Lab Data [facility] Lab Attestation statement: I reviewed the patient's lab results. 02/16/25 17:53 02/16/25 17:53 Labs: Lab Results 02/16/25 Range/Units 17:53 WBC 13.1 H (4.8-10.8) X10*3/uL RBC 3.82 L (4.20-5.50) X10*6/uL Hgb 9.4 L (12.0-16.0) g/dl Hct 32.9 L (37.0-47.0) % MCV 86.1 (80.0-98.0) fL MCH 24.6 L (27.0-33.0) pg MCHC 28.6 L (31.0-35.0) g/dl RDW 18.6 H (11.0-16.0) % Plt Count 321 (160-400) X10*3/uL MPV 9.6 (9.4-12.3) fL Immature Gran % (Auto) 1.1 H (0.0-0.4) % Neut % (Auto) 68.3 (45-73) % Lymph % (Auto) 18.3 L (20-40) % [place] % (Auto) 8.6 (2-11) % Eos % (Auto) 3.3 (0-4) % Baso % (Auto) 0.4 (0-2) % Lymph # (Auto) 2.4 (1.2-4.9) X10*3/uL [place] # (Auto) 1.1 (0.1-1.2) X10*3/uL Eos # (Auto) 0.4 (0.0-0.4) X10*3/uL Baso # (Auto) 0.1 (0.0-0.2) X10*3/uL Abs Immat Gran (auto) 0.15 H (0.00-0.03) X10*3/uL Absolute Neuts (auto) 8.9 H (2.0-8.3) x10*3/uL Absolute Nucleated RBC 0.030 H (0.0-0.012) X10*3/uL Nucleated RBC % (auto) 0.2 (0.0-0.2) /100WBC Sodium 141 (135-145) mmol/L Potassium 3.2 L (3.3-5.1) mmol/L Chloride 89 L (96-108) mmol/L Carbon Dioxide 39 H (22-29) mmol/L Anion Gap 16 (12-20) BUN 27 H (9-16) mg/dL Creatinine 1.05 (0.5-1.4) mg/dL Estim Creat Clear Calc 63.1 Estimated GFR 53 Random Glucose 138 H (60-115) mg/dL Calcium 10.2 (8.4-10.2) mg/dL Magnesium 2.1 (1.6-2.6) mg/dL Total Bilirubin 0.4 (0.0-1.0) mg/dL Direct Bilirubin 0.1 (0.0-0.5) mg/dL AST 19 (5-31) U/L ALT 17 (0-31) U/L Alkaline Phosphatase 81 (39-117) U/L Total Protein 7.2 (6.5-8.0) g/dL Albumin 4.0 (3.5-5.0) g/dL Independent Interpretation I performed an independent interpretation of an: EKG Interpretation: Sinus rhythm with first-degree AV block right bundle-branch block ventricular rate 70 beats per minute no acute STT wave changes no acute ischemia Discharge Plan Discharge Clinical Impression: Drug-induced hypokalemia Patient Disposition: Home, Self-Care Instructions: Potassium Content of Foods List (ED), Hypokalemia (ED) Additional Instructions: Continue take your potassium tablets as prescribed by your PCP today Follow up next week for recheck of potassium level as scheduled Your potassium level today was 3.2 Prescriptions: No Action (DME) eulalio Campbell See Rx Instructions .Route Qty: 1 0RF Rx Instructions: Standard desi tsai diltiazem HCl 30 mg tablet 30 mg PO BID Qty: 60 3RF Protocol: Hold for SBP/HR < HOLD for SBP < : 90 HOLD for HR < : 60 Jardiance 10 mg tablet 10 mg PO DAILY Qty: 30 3RF metoprolol tartrate 100 mg tablet 100 mg PO BID Qty: 180 1RF allopurinol 300 mg tablet 300 mg PO DAILY Qty: 90 0RF omeprazole 20 mg capsule,delayed release(DR/EC) 20 mg PO DAILY PRN (Reason: for acid reflux) Qty: 90 3RF potassium chloride 20 mEq tablet extended release 20 meq PO BID Qty: 60 0RF nitrofurantoin monohyd/m-cryst [Macrobid] 100 mg capsule 100 mg PO Q12H 7 Days Qty: 14 0RF Rx Instructions: must administer with a meal/food Xarelto 20 mg tablet 20 mg PO DAILY@1700 Rx Instructions: must administer with evening meal levothyroxine 125 mcg Tablet 250 mcg PO LESLIE@0630 colchicine 0.6 mg Capsule 0.6 mg PO DAILY Qty: 40 0RF Rx Instructions: 1.2 mg p.o.once, 0.6 mg 1 hour later, Followed by 0.6 mg Bid, for 5 days. alendronate 70 mg tablet 70 mg PO SA@0900 levothyroxine 125 mcg tablet 125 mcg MOTUWETHFRSA letrozole 2.5 mg tablet 2.5 mg PO DAILY torsemide 20 mg tablet 40 mg PO BID Qty: 90 1RF amiodarone 200 mg tablet 200 mg PO DAILY metolazone 10 mg tablet 10 mg PO .Wednesday Qty: 14 6RF Print Language: Chinese
--- NOTE | 2025-02-16 16:56 | ECG_ITS ---
Test Reason : low k Blood Pressure : */* mmHG Vent. Rate : 70 BPM Atrial Rate : 70 BPM P-R Int : 210 ms QRS Dur : 156 ms QT Int : 550 ms P-R-T Axes : 49 76 29 degrees QTcB Int : 594 ms Sinus rhythm with 1st degree A-V block Right bundle branch block Abnormal ECG When compared with ECG of 21-Dec-2024 10:52, Sinus rhythm has replaced Atrial fibrillation Vent. rate has decreased by 53 bpm T wave inversion no longer evident in Inferior leads Referred By: Liliana Crockett Electronically Signed By: Andrea Galarza
[2025-02-16 18:03] LABS: MANUAL DIFF FLAG NO
[2025-02-16 18:06] LABS: Basophils Absolute Auto 0.1 X10*3/uL (0.0-0.2); Basophils Percent Auto 0.4 % (0-2); Eosinophils Absolute Auto 0.4 X10*3/uL (0.0-0.4); Eosinophils Percent Auto 3.3 % (0-4); Hematocrit 32.9 % (37.0-47.0); Hemoglobin 9.4 g/dl (12.0-16.0); Imm Gran Abs Auto 0.15 X10*3/uL (0.00-0.03); Imm Gran Pct Auto 1.1 % (0.0-0.4); Lymphocytes Absolute Auto 2.4 X10*3/uL (1.2-4.9); Lymphocytes Percent Auto 18.3 % (20-40); Mean Corpuscular HGB Conc 28.6 g/dl (31.0-35.0); Mean Corpuscular Hemoglobin 24.6 pg (27.0-33.0); Mean Corpuscular Volume 86.1 fL (80.0-98.0); Mean Platelet Volume 9.6 fL (9.4-12.3); Monocytes Absolute Auto 1.1 X10*3/uL (0.1-1.2); Monocytes Percent Auto 8.6 % (2-11); NRBC Pct Auto 0.2 /100WBC (0.0-0.2); Neutrophils Absolute Auto 8.9 x10*3/uL (2.0-8.3); Neutrophils Percent Auto 68.3 % (45-73); Platelet Count 321 X10*3/uL (160-400); Red Blood Count 3.82 X10*6/uL (4.20-5.50); Red Cell Distribution Width 18.6 % (11.0-16.0); White Blood Count 13.1 X10*3/uL (4.8-10.8)
[2025-02-16 18:20] LABS: Alanine Aminotransferase 17 U/L (0-31); Alkaline Phosphatase 81 U/L (39-117); Anion Gap 16 (12-20); Aspartate Amino Transferase 19 U/L (5-31); Bilirubin Direct 0.1 mg/dL (0.0-0.5); Bilirubin Total 0.4 mg/dL (0.0-1.0); Blood Urea Nitrogen 27 mg/dL (9-16); Calcium 10.2 mg/dL (8.4-10.2); Carbon Dioxide 39 mmol/L (22-29); Chloride 89 mmol/L (96-108); Creatinine Clr Calc Pharmacy 63.1; Estimated Glomerular Filt Rate 53; Glucose Random 138 mg/dL (60-115); Magnesium 2.1 mg/dL (1.6-2.6); Potassium 3.2 mmol/L (3.3-5.1); Sodium 141 mmol/L (135-145); Total Protein 7.2 g/dL (6.5-8.0)
[2025-02-16 23:44] VITALS: BP 128/44; PULSE 70; RESP 16; TEMP 36.8; O2SAT 96
[2025-02-17] MEDS: Potassium Bicarbonate/Cit AC 25 MEQ TABLET.EFF 50 MEQ PO
[2025-02-17 00:10] VITALS: BP 128/44; PULSE 70; RESP 16; TEMP 33.4; O2SAT 96
== END 2025-02-17 00:11 | disposition home or self-care (01) ==
PROVIDERS: Physician Assistant; Emergency Provider Internal Medicine; PCP Internal Medicine
DX: E87.6 Hypokalemia (principal); R79.89 Other specified abnormal findings of blood chemistry; I48.91 Unspecified atrial fibrillation; I44.0 Atrioventricular block, first degree; I45.10 Unspecified right bundle-branch block; I10 Essential (primary) hypertension; Z79.899 Other long term (current) drug therapy; Z79.01 Long term (current) use of anticoagulants
CPT/HCPCS: 36415; 80048; 80076; 83735; 85025; 93005; 99283; 99284

== ENCOUNTER → 2025-02-16 16:56 | Outpatient (BNV) | payer OTHER, SELFPAY | PROVIDERS: Emergency Provider Internal Medicine; PCP Internal Medicine; Visit Provider Internal Medicine Cardiovascular Disease | DX: I44.0 Atrioventricular block, first degree (principal); I45.10 Unspecified right bundle-branch block | CPT/HCPCS: 93010 ==

== ENCOUNTER 2025-02-19 12:21 | Outpatient (REF) | payer OTHER, SELFPAY ==
[2025-02-19 14:26] LABS: Anion Gap 19 (12-20); Blood Urea Nitrogen 29 mg/dL (9-16); Calcium 10.3 mg/dL (8.4-10.2); Carbon Dioxide 42 mmol/L (22-29); Chloride 87 mmol/L (96-108); Estimated Glomerular Filt Rate 52; Glucose Random 159 mg/dL (60-115); Potassium 3.7 mmol/L (3.3-5.1); Sodium 144 mmol/L (135-145)
== END 2025-02-19 12:22 | disposition home or self-care (01) ==
LOC: HO.HMGCLDS 12:21
PROVIDERS: PCP Internal Medicine; Visit Provider Internal Medicine
DX: E87.6 Hypokalemia (principal)
CPT/HCPCS: 36415; 80048

== ENCOUNTER 2025-02-23 10:01 | Outpatient (AMB) | payer OTHER, SELFPAY ==
--- NOTE | 2025-02-23 10:08 | A.OFFPC_ITS ---
Vital Signs 02/23/25 10:09 Height 5 ft 1 in Weight 253 lb BMI 47.8 BP 124/60 Blood Pressure Location Lt brachial Position Sitting Respiration 18 Pulse 80 Pulse Source Pulse Oximeter Temp 98.4 F Temp Source Oral Pulse Oximetry (%) 96 Oxygen Delivery Method Room Air Intake Visit Reasons: 2 week f/u Intake Note: Pt is here today for 2 weeks follow up visit. Allergies erythromycin base Allergy (Intermediate, Verified 02/23/25 10:14) Abdominal Pain lisinopril Allergy (Intermediate, Verified 02/23/25 10:14) Rash Medication List - Last Reconciled 02/23/25 by Amita Ruiz MD alendronate 70 mg PO SA@0900 allopurinol 300 mg PO DAILY amiodarone 200 mg PO DAILY colchicine 0.6 mg PO DAILY diltiazem HCl ER 120 mg PO DAILY empagliflozin (Jardiance) 10 mg PO DAILY letrozole 2.5 mg PO DAILY levothyroxine 250 mcg PO LESLIE@0630 levothyroxine 125 mcg MOTUWETHFRSA metolazone 10 mg PO .Wednesday metoprolol tartrate 100 mg PO BID omeprazole 20 mg PO DAILY PRN potassium chloride ER 20 mEq PO BID prednisone 20 mg PO BID rivaroxaban (Xarelto) 20 mg PO DAILY@1700 sulfamethoxazole-trimethoprim 800-160 mg (Bactrim DS) 1 tab PO BID torsemide 40 mg (2 x 20 mg) PO QAM walker Standard wheeled walker Tobacco use date assessed: 02/23/25 Dental Screening Dental Screen Date: 12/19/24 HPI 2 week f/u HPI Details Patient presents for the follow-up of paroxysmal AFib, controlled on amiodarone metoprolol and diltiazem, heart failure with preserved ejection fraction, right-sided heart failure due to hypoventilation/ hypoxia now on supplemental O2 24 hours a day.. Patient is established with sleep medicine and has not been able to tolerate CPAP. Chronic lower extremity edema improved with a combination of loop diuretic and metolazone. patient has been taking supplemental potassium. Patient had arterial Doppler of lower extremities consistent with severe peripheral artery disease and is being referred to a vascular surgeon. She completed radiation therapy for breast cancer. [facility]LY [facility], [facility] Medical History (HFpEF) heart failure with preserved ejection fraction Arthritis HX: breast cancer SOB (shortness of breath) On anticoagulant therapy Invasive ductal carcinoma of right breast in female A-fib Hypothyroid Osteoporosis Urethral stenosis Depression with anxiety Thyroid cancer Acid reflux Kidney stone QAMAR (obstructive sleep apnea) Hypertension Knee pain, left Surgical History History of lumpectomy of right breast (09/20/24) Hx of dilation of urethra Hx of cystoscopy H/O colonoscopy History of partial hysterectomy History of thyroidectomy Family History Mother Lung cancer Father HTN (hypertension) Melanoma Social History Household Members: Spouse Housing: House Are you a primary acute care physician to a significant other at home: No Do you presently have visiting nurse or other home services: No Alcohol intake: current Alcohol intake frequency: does not drink Patient Tobacco Use Status: Never used Tobacco e-Cigarette/Vaping Use: Never Used service: No Current occupational status: unemployed Current occupation: right handed Cognitive needs: No Hearing needs: No Vision needs: Yes Female Reproductive History Menstrual Age of Menarche: 13 Questionnaire Thrive Questionnaire Date Thrive assessed: 01/03/25 I am a: Patient What is your living situation today?: I have a steady place to live THRIVE Score: 0 DARLEEN-7 AMB Questionnaire DARLEEN-7 Date DARLEEN - 7 assessed: 01/04/24 Source: Developed by Drs. Kenney Sweeney, Juana Oliva, Jaime Jiang and colleagues, with an educational petra from [email or web address]. Review of Systems Const All systems reviewed & are unremarkable except as noted in HPI and below Eyes Reports no additional complaints ENT Reports no additional complaints Card Reports no additional complaints Resp Reports no additional complaints GI Reports no additional complaints Reports no additional complaints Physical exam (Primary Care) Vital Signs: Last Vital Signs Temp 98.4 F 02/23/25 10:09 Pulse 80 02/23/25 10:09 Resp 18 02/23/25 10:09 BP 124/60 02/23/25 10:09 Pulse Ox 96 02/23/25 10:09 Oxygen Delivery Method Room Air 02/23/25 10:09 BMI result Body Mass Index 47.8 Tobacco/Smoking Status: Tobacco use Status Tobacco use date assessed 02/23/25 02/23/25 10:22 Patient Tobacco Use Status Never used Tobacco 02/23/25 10:09 e-Cigarette/Vaping Use Never Used 02/23/25 10:09 Thrive Assessment: Date of Thrive Assessment Date Thrive assessed 01/03/25 02/23/25 10:09 Const General: no acute distress HENMT Head: Yes normal to inspection Eyes General: appearance normal, both eyes and all related structures Resp Effort & Inspection: normal respiratory effort Auscultation: diminished lung sounds Cardio Rhythm: regular rhythm Heart sounds: S1 normal heart sound present and S2 normal heart sound present GI Inspection: Yes normal to inspection Palpation (GI): Soft to palpation Percussion: Yes normal to percussion Extrem Other: 2+ pitting edema lower extremitites Coding Level of Care Code Est Pt Level 5 (04960) Complex EM visit Add On G2211 Diagnoses Peripheral artery disease I73.9 Hypokalemia E87.6 Hypoventilation associated with obesity E66.2 Paroxysmal atrial fibrillation I48.0 Atrial fibrillation type: paroxysmal Gout M10.9 Assessment & Plan Assessment & Plan (1) Peripheral artery disease: Comment: Arterial Doppler 01/2025 consistent with severe inflow disease right lower extremity but popliteal, anterior tibialis and dorsalis pedis, left lower extremity severe anterior tibialis and dorsalis pedis, bilateral occluded peroneal arteries Code(s): I73.9 - Peripheral vascular disease, unspecified Category: Medical Plan: Referred to vascular surgeon (2) Hypokalemia: Code(s): E87.6 - Hypokalemia Category: Medical Plan: Continue potassium supplement on high dose diuretics, monitor potassium level next week (3) Hypoventilation associated with obesity: Comment: Noncompliant with CPAP, referred to sleep Medicine Code(s): E66.2 - Morbid (severe) obesity with alveolar hypoventilation Category: Medical Plan: 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 GLP 1 agonist treatment discussed with the patient . she is contemplating trying to medication (4) A-fib: Code(s): I48.91 - Unspecified atrial fibrillation Category: Medical Qualifiers: Atrial fibrillation type: paroxysmal Qualified Code(s): I48.0 - Paroxysmal atrial fibrillation Plan: Rate controlled on current medications patient is being referred to EP for possible catheter ablation continue anticoagulation (5) Gout: Code(s): M10.9 - Gout, unspecified Category: Medical Plan: For flare-up of gout of right index finger prednisone 40 mg for 5 days is prescribed Orders: Orders TSH reflex Free T4 03/05/25 E66.2 - Morbid (severe) obesity with alveolar hypoventilation, E87.6 - Hypokalemia, I48.0 - Paroxysmal atrial fibrillation, I73.9 - Peripheral vascular disease, unspecified Comprehensive Met. Panel 03/05/25 E66.2 - Morbid (severe) obesity with alveolar hypoventilation, E87.6 - Hypokalemia, I48.0 - Paroxysmal atrial fibrillation, I73.9 - Peripheral vascular disease, unspecified Magnesium 03/05/25 E66.2 - Morbid (severe) obesity with alveolar hypoventilation, E87.6 - Hypokalemia, I48.0 - Paroxysmal atrial fibrillation, I73.9 - Peripheral vascular disease, unspecified Uric Acid 04/02/25 M10.9 - Gout, unspecified Referrals Vascular Surgery Referral I73.9 - Peripheral vascular disease, unspecified Medications: New diltiazem HCl ER 120 mg PO DAILY 90 caps 0RF prednisone 20 mg PO BID 10 tabs 0RF Changed From torsemide 40 mg (2 x 20 mg) PO BID 90 tabs 1RF To torsemide 40 mg (2 x 20 mg) PO QAM 180 tabs 1RF Discontinued diltiazem HCl Discontinued Reason: Doctor's Order 30 mg See Protocol PO BID 60 tabs 3RF
[2025-02-23 10:09] VITALS: BP 124/60; PULSE 80; RESP 18; TEMP 36.9; O2SAT 96; BMI 47.8
== END 2025-02-23 11:00 | disposition home or self-care (01) ==
LOC: HO.HMCC 10:02
PROVIDERS: PCP Internal Medicine; Visit Provider Internal Medicine
DX: I73.9 Peripheral vascular disease, unspecified (principal); E66.2 Morbid (severe) obesity with alveolar hypoventilation; I48.0 Paroxysmal atrial fibrillation; Z68.42 Body mass index [BMI] 45.0-49.9, adult; E87.6 Hypokalemia; M10.9 Gout, unspecified

== ENCOUNTER → 2025-02-23 10:01 | Outpatient (BNVA) | payer OTHER, SELFPAY | PROVIDERS: PCP Internal Medicine; Visit Provider Internal Medicine | DX: I73.9 Peripheral vascular disease, unspecified (principal); E87.6 Hypokalemia; E66.2 Morbid (severe) obesity with alveolar hypoventilation; I48.0 Paroxysmal atrial fibrillation; M10.9 Gout, unspecified | CPT/HCPCS: 99212 ==

== ENCOUNTER 2025-03-06 13:23 | Outpatient (AMB) | payer OTHER, SELFPAY ==
--- NOTE | 2025-03-06 13:26 | MHC.OFFVIS ---
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 Right LE worse than the Left LE. Pt states it started in November when she was hospitalized for covid. She has also been on Oxygen since as well as AFib. Pt states she also had treatment for breast cancer this past fall. 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 Complaints includewelling of lower extremities, cramping, fatigue, and heaviness of the lower extremities, along with the ankle joint. It has been affecting there daily activities including walking with the use of a walker. It is noted more so in left leg. Of note she does have a history of breast cancer and subsequently became oxygen dependent after COVID. She is currently also being treated for AFib. She has been on 2 diuretics which have been improving the swelling but still has a fair amount of edema on bilateral lower extremities. Patient denies any previous venous surgery or injections. Patient denies any history of DVT/ PE. Patient denies any history of phlebitis. Trial of compression includes - [id number] They now present for vascular evaluation regarding their varicose veins. [facility], [facility] Medical History (HFpEF) heart failure with preserved ejection fraction Arthritis HX: breast cancer SOB (shortness of breath) On anticoagulant therapy Invasive ductal carcinoma of right breast in female A-fib Hypothyroid Osteoporosis Urethral stenosis Depression with anxiety Thyroid cancer Acid reflux Kidney stone QAMAR (obstructive sleep apnea) Hypertension Knee pain, left Surgical History History of lumpectomy of right breast (09/20/24) Hx of dilation of urethra Hx of cystoscopy H/O colonoscopy History of partial hysterectomy History of thyroidectomy Family History Mother Lung cancer Father HTN (hypertension) Melanoma Social History Household Members: Spouse Housing: House Are you a primary cardiac care nurse to a significant other at home: No Do you presently have visiting nurse or other home services: No Alcohol intake: current Alcohol intake frequency: does not drink Patient Tobacco Use Status: Never used Tobacco e-Cigarette/Vaping Use: Never Used service: No Current occupational status: unemployed Current occupation: right handed Cognitive needs: No Hearing needs: No Vision needs: Yes Female Reproductive History Menstrual Age of Menarche: 13 Review of Systems Const Reports as per HPI ENT Reports no additional complaints Card Denies chest pain, Denies chest pain at rest and Denies chest pain with activity Resp Denies chest congestion and Denies cough GI Reports no additional complaints Musc Details: pain over varicosities, aching of lower extremities, swelling, cramping, heaviness and tiredness, itching Denies abnormal gait Skin/Breast Reports pruritus and Denies wounds Neuro Reports no additional complaints and Denies abnormal gait Psych Denies no additional complaints Physical Exam Vital Signs: BMI result Body Mass Index 47.8 Const General: cooperative, healthy appearing and comfortable Orientation/consciousness: oriented to person, oriented to place and oriented to time Neck Carotids: no bruits Chest Chest palpation & inspection: normal inspection of the chest and normal palpation of entire chest wall Resp Effort & Inspection: normal respiratory effort and able to speak in complete sentences Cardio Other: Bilateral palpable dorsalis pedis pulses Rate: regular rate Heart sounds: S1 normal heart sound present and S2 normal heart sound present Peripheral pulses: Peripheral pulses 2+ throughout GI Inspection: Yes normal to inspection Skin Other: +2 edema, left greater than right CEAP Classification C4 - skin color changes Ep - Etiology Primary As - superficial veins P - reflux General skin exam: dry skin Neuro General: oriented to person, oriented to place and oriented to time Extrem Right lower extremity: full ROM, normal capillary refill and edema Left lower extremity: full ROM, normal capillary refill and edema Psych Mental Status: mental status grossly normal Results Reviewed Results Reviewed: Arterial Doppler 01/2025 consistent with severe inflow disease right lower extremity but popliteal, anterior tibialis and dorsalis pedis, left lower extremity severe anterior tibialis and dorsalis pedis, bilateral occluded peroneal arteries Assessment & Plan Assessment & Plan (1) Varicose veins of left lower extremity with inflammation: Code(s): I83.12 - Varicose veins of left lower extremity with inflammation Category: Medical Plan: In short she has significantly swollen lower extremities. This may be multifactorial in nature. Clearly there is an element of congestive heart failure. In addition there may be an element of venous insufficiency as well. I have taken the liberty of ordering venous insufficiency testing to rule that out. I am also concerned that she also may have lymphedema as well. See below. (2) Lymphedema: Code(s): I89.0 - Lymphedema, not elsewhere classified Category: Medical Plan: Patient has prior history of breast cancer with radiation. Although remote location from lower extremities she does demonstrate clinical stigmata of lymphedema. On physical we are noticing hyperpigmentation, lymphorrhea, and hyperplasia. We workup venous insufficiency 1st. Should that prove to be negative we then can pursue lymphedema pumps for her. (3) Peripheral artery disease: Code(s): I73.9 - Peripheral vascular disease, unspecified Category: Medical Plan: She was worked up for peripheral vascular disease. Had noninvasive testing which I do believe is a bit of an over read. I am able to appreciate palpable dorsalis pedis pulses. In addition she does not have the typical risk factors for peripheral vascular disease. At the current time we will workup her lower extremity swelling. Thank you for allowing us to assist in her care. Orders: Orders US venous duplex LE BI 1 Week I83.12 - Varicose veins of left lower extremity with inflammation Coding Level of Care Code New Pt Level 4 (58376) Complex EM visit Add On G2211 Diagnoses Varicose veins of left lower extremity with inflammation I83.12 Lymphedema I89.0 Peripheral artery disease I73.9
[2025-03-06 13:28] VITALS: BMI 47.8
--- OUTSIDE RECORDS SUMMARY | 2025-03-06 16:17 | XMS_ITS ---
Author Organization [facility] Address [address] [place] [address] Care Team Providers Care Division Head Name Role Phone Amita Ruiz MD Primary Care Provider Jorje Last Jr, Arie Gibson REASON FOR VISIT Appointment Encounters Encounter Location Date Provider Diagnosis [facility] [address] [place] [address] 02/08/2025 Arie Last Jr Plan Of Treatment Next Appt Details Provider Name:Arie jordan Jr, 08/20/2025 09:40:00 AM, [address], [address], [place], [address], Progress Notes * RAJ SOUZAOB:1960 ( 64 yo F)Acc No.[id number]:02/08/2025 Patient:?LIBBY TIFFANY :1960???Age:64 Y???Sex:Female Address:[address] [place] [address], [address] * true * Date:? Generated for Printi al/Nu/eTransmitting on:?03/06/2025 04:17 PM EDT
--- OUTSIDE RECORDS SUMMARY | 2025-03-06 16:18 | XMS_ITS ---
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
--- OUTSIDE RECORDS SUMMARY | 2025-03-06 16:18 | XMS_ITS | Patient Health Record ---
Author Organization [facility] Address [address] [place] [id number] Care Team Providers Care Candy Cutter Machine Name Role Phone Amita Ruiz MD [...] Oral for 90 Acti ve Olmesartan Medoxomil-HCTZ 40-25 MG Oral for 90 Active Synthroid 125 MCG Oral for 90 Active Vitamin D3 50 MCG (1999 UT) Oral for 90 Active metOLazone 10 MG TAKE 1 TABLET ORALLY DAILY ON WEDNESDAY, WEDNESDAY AND WEDNESDAY Oral for 90 Days Active Jardiance 10 MG TAKE 1 TABLET BY ELZA TH EVERY DAY Oral for 30 Days Active Letrozole 2.5 MG 1 tablet Orally Once a day Active dilTIAZem HCl 30 MG TAKE 1 TABLET BY ELZA TH TWICE A DAY Oral for 30 Days Active Metoprolol Succinate ER 100 MG 1 tablet Orally twice a day Active Alendronate Sodium 70 MG 1 tablet 30 min utes before the first food, beverage or medicine of the day with plain water Orally Active Amiodarone HCl 200 MG 1 tablet Orally On ce a day Active Furosemide 40 MG 1 tablet Orally Once a day Active Immunizations Vaccine Route Administration Date Status Comme nts Influenza Unknown 09/08/2022 Administered Social History Tobacco Use: Social History Observation Description Date Details (start date - stop date) Never Smoker NA - NA Tobacco Use/Smoking Question Answer Notes Patient is a nonsmoker AUDIT-C (Standard) Question Answer Notes Did you have a drink containing alcohol in the p ast year? No Points 0 Interpretation Negative Problems Problem Type SNOMED Code ICD Code Onset Dates Problem Status W/U Status Risk Notes Problem 273329653 Colon cancer screening (Z12.11) Active confirmed Problem 037995494 Anemia, unspecified type (D64.9) Active confirmed Problem 26866413 Irritable bowel syndrome with both constipation and diarrhea (K58.2) Active confirmed Vital Signs Blood pressure diastolic 111 mm Hg 02/15/2025 Height 5 ft 1 in in 02/15/2025 Blood pressure systolic 111 mm Hg 02/15/2025 Weight 250 lbs 02/15/2025 BMI 47.23 kg/m2 02/15/2025 Encounters Encounter Location Date Provider Diagnosis [facility] [address] [place] [phone] 02/15/2025 Arie Last Jr Anemia, unspecified type D64.9 [facility] [address] [place] [phone] 02/08/2025 Arie Last Jr Assessments Encounter Date Diagnosis (ICD Code) Assessment Notes Treatment Notes Treatment Clinical Notes Section Notes 02/15/2025 Anemia, unspecified type (ICD-10 - D64.9) At this time, we have recommended she have stool occult blood testing. We discussed giving the iron infusions a chance to provide an appropriate response in her hematocrit. She denies any upper GI symptoms and any active GI bleeding, and given that her recent colonoscopy was basically unremarkable, we have not recommended further GI evaluation at this time. She will have Hemoccult testing and follow-up in 6 months. Plan Of Treatment Pending Test Test Name Order Date OCCULT BLOOD STOOL 02/15/2025 Future Test Test Name Order Date COLONOSCOPY 09/20/2023 Next Appt Details Provider Name:Arie jordan Jr, 08/20/2025 09:40:00 AM, [address] [place] [address], [address], [place], [address], Insurance Providers Payer Name Payer Address Payer Phone Subscriber Number Group Number Insured Name Patient Relationship to Insured Coverage Start Date Coverage End Date [facility] [address] [address] [place], [place] [id number] TIFFANY SOUZA Self - patient is the insured MEDICAID OF [employer] [address] [place] [address] [id number] TIFFANY SOUZA Self - patient is the insured Medical (General) History Medical History History ICD Code Papillary thyroid carcinoma Hypertension Uterine fibroids Microscopic hematuria QAMAR/CPAP Osteoporosis Atrial fibrillation covid 11/2024- oxygen dependent Surgical History Surgery Date(Month/Year) vascular ds both legs breast cancer right -lumpectomy with rad iation 09/20/2024 partial hysterectomy 2016 Thyroidectomy, lymph node exploration an d removal Hospitalization History Reason Date(Month/Year) Atrial fibrillation with rapid ventricul ar response 01/21
--- OUTSIDE RECORDS SUMMARY | 2025-03-06 16:18 | XMS_ITS ---
Author Organization [facility] Address [address] [place] [address] Care Team Providers Care Dough Cutter Name Role Phone Amita Ruiz MD Primary Care Provider Jorje Last Jr, Arie Gibson [phone] REASON FOR VISIT pathology Encounters Encounter Location Date Provider Diagnosis [facility] [address] [place] [address] 11/04/2023 Arie Last Jr Plan Of Treatment Next Appt Details Provider Name:Arie jordan Jr, 08/20/2025 09:40:00 AM, [address], [address], [place], [address], Progress Notes * BEATA SOUZAELMAOB:1960 ( 63 yo F)Acc No.[id number]:11/04/2023 Patient:?LIBBY TIFFANY :1960???Age:63 Y???Sex:Female Address:[address] [place] [address], [address] * true * Date:? Generated for Printi al/Nu/eTransmitting on:?03/06/2025 04:17 PM EDT
--- OUTSIDE RECORDS SUMMARY | 2025-03-06 16:18 | XMS_ITS | Clinical Summary ---
Author Organization [facility] Address [address] [place] [address] Phone Care Team Providers Care Laryngologist Name Role Phone Amita Ruiz MD Primary Care Provider [phone] Allergies Active Allergy Reactions Criticality Noted Date [...] time each day. 30 each 5 Active dexAMETHasone (DECADRON) 1 mg tablet Take 6 tablets (6 mg total) by mouth 1 (one) time each day for 4 days. 24 each 5 Active dilTIAZem CD (CARDIZEM CD) 120 mg 24 hr capsule Take 1 capsule (120 mg total) by mouth 1 (one) time each day. 30 each 5 Active Additional Information Patient taking differently: 30 mgoral2 times daily, Reported on 01/12/2025 metoprolol tartrate (LOPRESSOR) 100 mg tablet Take 1 tablet (100 mg total) by mouth 2 (two) times a day. 60 each 5 Active torsemide (DEMADEX) 5 mg tablet Take 4 tablets (20 mg total) by mouth 1 (one) time each day. Active allopurinoL (ZYLOPRIM) 100 mg tablet Take 3 tablets (300 mg total) by mouth 1 (one) time [...] mouth 1 (one) time each day. Active dilTIAZem (CARDIZEM) 30 mg immediate release tablet Take 1 tablet (30 mg total) by mouth 2 (two) times a day. Active metOLazone (ZAROXOLYN) 10 mg tablet Take 1 tablet (10 mg total) by mouth 3 (three) times a week. 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 11/07/2024 Depression with anxiety 11/07/2024 Arthritis 11/07/2024 A-fib 11/07/2024 Hypothyroidism Resolved Problems Problem Noted Date Diagnosed Date Resolved Date Anemia 11/07/2024 11/07/2024 Encounters Date Type Department Care Team Description 02/15/2025 10:57 AM EDT - 02/15/2025 11:59 PM EDT Hospital Encounter [facility] Radiation Oncology [address] [place] [phone] Arabella King NP Malignant neoplasm of upper-outer quadrant of right breast in female, estrogen receptor positive (CMS/HCC) (Primary Dx) Discharge Disposition: Home or Self Care 01/16/2025 8:56 AM EST - 01/16/2025 11:59 PM EST Hospital Encounter [facility] Radiation Oncology [address] [place] [phone] Arabella King NP Malignant neoplasm of upper-outer quadrant of right breast in female, estrogen receptor positive (CMS/HCC) (Primary Dx) Discharge Disposition: Home or Self Care 01/16/2025 8:24 AM EST - 01/16/2025 11:59 PM EST Hospital Encounter [facility] Radiation Oncology [address] [place] [phone] Discharge Disposition: Home or Self Care 01/15/2025 8:25 AM EST - 01/15/2025 11:59 PM EST Hospital Encounter [facility] Radiation Oncology [address] [place] [phone] Discharge Disposition: Home or Self Care 01/12/2025 8:52 AM EST - 01/12/2025 11:59 PM EST Hospital Encounter [facility] Radiation Oncology [address] [place] [phone] Radha Bourgeois MD Malignant neoplasm of upper-outer quadrant of right breast in female, estrogen receptor positive (CMS/HCC) (Primary Dx) Discharge Disposition: Home or Self Care 01/12/2025 8:29 AM EST - 01/12/2025 11:59 PM EST Hospital Encounter [facility] Radiation Oncology [address] [place] [phone] Discharge Disposition: Home or Self Care 01/11/2025 2:03 PM EST - 01/11/2025 11:59 PM EST Hospital Encounter [facility] Radiation Oncology [address] [place] [phone] Discharge Disposition: Home or Self Care 01/10/2025 8:36 AM EST - 01/10/2025 11:59 PM EST Hospital Encounter [facility] Radiation Oncology [address] [place] [phone] Discharge Disposition: Home or Self Care 01/09/2025 8:26 AM EST - 01/09/2025 11:59 PM EST Hospital Encounter [facility] Radiation Oncology [address] [place] [phone] Discharge Disposition: Home or Self Care 01/08/2025 8:46 AM EST - 01/08/2025 11:59 PM EST Hospital Encounter [facility] Radiation Oncology [address] [place] [phone] Discharge Disposition: Home or Self Care 01/05/2025 8:46 AM EST - 01/05/2025 11:59 PM EST Hospital Encounter [facility] Radiation Oncology [address] [place] [phone] Radha Bourgeois MD Malignant neoplasm of upper-outer quadrant of right breast in female, estrogen receptor positive (CMS/HCC) (Primary Dx) Discharge Disposition: Home or Self Care 01/05/2025 8:27 AM EST - 01/05/2025 11:59 PM EST Hospital Encounter [facility] Radiation Oncology [address] [place] [phone] Discharge Disposition: Home or Self Care 01/04/2025 8:57 AM EST - 01/04/2025 11:59 PM EST Hospital Encounter [facility] Radiation Oncology [address] [place] [phone] Discharge Disposition: Home or Self Care 01/03/2025 8:32 AM EST - 01/03/2025 11:59 PM EST Hospital Encounter [facility] Radiation Oncology [address] [phone] Discharge Disposition: Home or Self Care 01/02/2025 8:47 AM EST - 01/02/2025 11:59 PM EST Hospital Encounter [facility] Radiation Oncology [address] [phone] Discharge Disposition: Home or Self Care 01/01/2025 8:28 AM EST - 01/01/2025 11:59 PM EST Hospital Encounter [facility] Radiation Oncology [address] [phone] Discharge Disposition: Home or Self Care 12/21/2024 8:35 AM EST - 12/21/2024 11:59 PM EST Hospital Encounter [facility] Radiation Oncology [address] [place] [phone] Discharge Disposition: Home or Self Care 12/20/2024 8:41 AM EST - 12/20/2024 11:59 PM EST Hospital Encounter [facility] Radiation Oncology [address] [place] [phone] Discharge Disposition: Home or Self Care 12/19/2024 8:52 AM EST - 12/19/2024 11:59 PM EST Hospital Encounter [facility] Radiation Oncology [address] [place] [phone] Discharge Disposition: Home or Self Care 12/18/2024 11:15 AM EST - 12/18/2024 11:59 PM EST Hospital Encounter [facility] Radiation Oncology [address] [place] [phone] Pari Martinez MD Discharge Disposition: Home or Self Care 12/18/2024 10:53 AM EST - 12/18/2024 11:59 PM EST Hospital Encounter [facility] Radiation Oncology [address] [phone] Discharge Disposition: Home or Self Care 12/01/2024 9:30 AM EST - 12/07/2024 4:56 PM EST Hospital Encounter [facility] Inter[facility] Care Unit [address] [place] [phone] Josh Carranza MD Kela, MD Nery Garcia Yar M, MD Surendran, MD KEVIN Quiñones (Primary Dx); Peripheral edema Discharge Disposition: Home-Health Care Svc from Last 3 Months Surgical History Surgery Date Site/Laterality Comments COLONOSCOPY BREAST LUMPECTOMY 09/20/2024 Right PARTIAL HYSTERECTOMY THYROIDECTOMY CYSTOSCOPY Medical History Medical History Date Comments Cancer (CMS/HCC) Gout A-fib (CMS/HCC) Thyroid cancer (CMS/HCC) Sleep apnea Reflux esophagitis Family History Medical History Relation Name Comments malignant melanoma Father Lung cancer Mother Uterine cancer Sister Relation Name Status Comments Father Mother Sister Social History Tobacco Use Types Packs/Day Years [...] Sign Reading Time Taken Comments Blood Pressure 135/55 02/15/2025 11:03 AM EDT Pulse 100 02/15/2025 11:03 AM EDT Temperature 36.4 ??C (97.5 ??F) 02/15/2025 11:03 AM E DT Respiratory Rate 18 02/15/2025 11:03 AM EDT Oxygen Saturation 92% 02/15/2025 11:03 AM EDT 1.5 Inhaled Oxygen Concentration - - Weight 114 kg (250 lb 9.6 oz) 02/15/2025 11:03 A M EDT Height 154.9 cm (5' 1 ) 02/15/2025 11:03 AM EDT Body Mass Index 47.35 02/15/2025 11:03 AM EDT Plan of Treatment Health Maintenance Due Date Last Done Comments Breast Cancer Screening 1960 DTaP,Tdap,and Td Vaccines (1 - Tdap) 1979 Pneumococcal Vaccine: 50+ Years (1 of 2 - PCV) 1979 Pneumococcal Vaccine: Pediatrics (0 to 5 Years) and At-Risk Patients (6 to 64 Years) (1 of 2 - PCV) 1979 Zoster Vaccines (1 of 2) 1979 Cervical Cancer Screening: Pap Smear 1981 RSV Immunization Adult Patients (1 - Risk 60-74 years 1-dose series) [...] age to complete this topic Meningococcal B Vaccine Aged Out No l onger eligible based on patient's age to complete [...] AND DIFFERENTIAL Routine 12/06/2024 6:16 AM EST from Last 3 Months Results * Rad [...] 8:56 AM EST us Physician Radiation Oncology RADIATION ONCOLO GY ORDERABLES [...] 8:47 AM EST Physician Radiation Oncology RADIATION NO [...] GY ORDERABLES Final Result Performing Organization Address City/[facility] Co de Phone Number [facility] RADIATION ONCOLOGY [...] GY ORDERABLES Final Result Performing Organization Address City/[facility]/ZIP Co de Phone Number [facility] RADIATION ONCOLOGY [...] GY ORDERABLES Final Result Performing Organization Address City/State/[facility] Co de Phone Number [facility] RADIATION ONCOLOGY [...] GY ORDERABLES Final Result Performing Organization Address City/[facility] Co de Phone Number [facility] RADIATION ONCOLOGY * (ABNORMAL) CBC auto differential (12/07/2024 6:02 AM EST) Only the most recent of2 resultswithin the time period is included. WBC 15.5(H) 4.8 - 10.8 K/[facility] LAB HEMETOLOGY METHOD 12/07/2024 7:21 AM EST [facility] RBC 3.30(L) 3.80 - 4.80 M/[facility] LAB HEMETOLOGY METHOD 12/07/2024 7:21 AM EST [facility] Hemoglobin 9.3(L) 11.5 - 16.0 g/dL LAB HEMETOLOGY METHOD 12/07/2024 7:21 AM [facility] Hematocrit 32.0(L) 35.0 - 47.0 % LAB HEMETOLOGY METHOD 12/07/2024 7:21 AM [facility] MCV 97.6 79.0 - 98.0 FL LAB HEMETOLOGY METHOD 12/07/2024 7:21 AM [facility] MCH 28.4 27.0 - 32.0 pcg LAB HEMETOLOGY METHOD 12/07/2024 7:21 AM [facility] MCHC 29.1(L) 32.0 - 37.0 g/dL LAB HEMETOLOGY METHOD 12/07/2024 7:21 AM [facility] RDW 18.9(H) 11.0 - 15.0 % LAB HEMETOLOGY METHOD 12/07/2024 7:21 AM [facility] Platelets 390 130 - 400 K/mcL LAB HEMETOLOGY METHOD 12/07/2024 7:21 AM [facility] MPV 10.0 7.0 - 11.0 FL LAB HEMETOLOGY METHOD 12/07/2024 7:21 AM [facility] NRBC 0.5 <1.0 % LAB HEMETOLOGY METHOD 12/07/2024 7:21 AM [facility] NRBC Absolute 0.07 <0.10 K/mcL LAB HEMETOLOGY METHOD 12/07/2024 7:21 AM [facility] Neutrophils Relative 74.5 % LAB HEMETOLOGY METHOD 12/07/2024 7:21 AM [facility] Lymphocytes Relative 13.6 % LAB HEMETOLOGY METHOD 12/07/2024 7:21 AM [facility] Monocytes Relative 7.6 % LAB HEMETOLOGY METHOD 12/07/2024 7:21 AM [facility] Eosinophils Relative 0.0 % LAB HEMETOLOGY METHOD 12/07/2024 7:21 AM [facility] Basophils Relative 0.4 % LAB HEMETOLOGY METHOD 12/07/2024 7:21 AM [facility] Immature Granulocytes Relative 3.9 % LAB HEMETOLOGY METHOD 12/07/2024 7:21 AM [facility] Neutrophils Absolute 11.53(H) 1.50 - 7.00 K/mcL LAB HEMETOLOGY METHOD 12/07/2024 7:21 AM [facility] Lymphocytes Absolute 2.10 1.00 - 5.00 K/mcL LAB HEMETOLOGY METHOD 12/07/2024 7:21 AM [facility] Monocytes Absolute 1.18(H) 0.20 - 1.00 K/mcL LAB HEMETOLOGY METHOD 12/07/2024 7:21 AM [facility] Eosinophils Absolute 0.00 0.00 - 0.50 K/mcL LAB HEMETOLOGY METHOD 12/07/2024 7:21 AM EST [facility] Basophils Absolute 0.06 0.00 - 0.20 K/mcL LAB HEMETOLOGY METHOD 12/07/2024 7:21 AM [facility] Immature Granulocytes Absolute 0.60(H) 0.00 - 0.03 K/mcL LAB HEMETOLOGY METHOD 12/07/2024 7:21 AM [facility] Blood Venous blood specimen / Unknown Venipuncture / Unknown 12/07/2024 6:02 AM EST 12/07/2024 6:51 AM EST us Milagro WEBBER LAB BLOOD ORDERABLES Final Result [facility] [address] [place] [address], * Folate (12/07/2024 6:02 AM EST) [facility] Folate 13.9 2.8 - 17.0 ng/ml LAB CHEMISTRY METHOD 12/07/2024 9:35 AM EST [facility] Blood Venous blood specimen / Unknown Venipuncture / Unknown 12/07/2024 6:02 AM EST 12/07/2024 6:49 AM EST Nuria Marie MD LAB BLOOD ORDERABLES Final Result Performing Organization Address City/[facility]/ZIP Co de Phone Number [facility] [address] [place] [address], [place] [phone] * Vitamin B12 (12/07/2024 6:02 AM EST) [facility] Vitamin B-12 698 250 - 900 pcg/mL LAB CHEMISTRY METHOD 12/07/2024 9:59 AM EST [facility] Blood Venous blood specimen / Unknown Venipuncture / Unknown 12/07/2024 6:02 AM EST 12/07/2024 6:49 AM EST us Nuria Marie MD LAB BLOOD ORDERABLES Final Result Performing Organization Address City/[facility]/ZIP Co de Phone Number [facility] [address] [place] [address], [place] [phone] * (ABNORMAL) Basic metabolic panel (12/07/2024 6:02 AM EST) Only the most recent of2 resultswithin the time period is included. [facility] Sodium 139 133 - 145 mmol/L LAB CHEMISTRY METHOD 12/07/2024 7:57 AM EST [facility] Potassium 4.5 3.5 - 5.5 mmol/L LAB CHEMISTRY METHOD 12/07/2024 7:57 AM EST [facility] Chloride 96 96 - 110 mmol/L LAB CHEMISTRY METHOD 12/07/2024 7:57 AM EST [facility] CO2 38(H) 21 - 32 mmol/L LAB CHEMISTRY METHOD 12/07/2024 7:57 AM [facility] Anion Gap 5 3 - 11 LAB CHEMISTRY METHOD 12/07/2024 7:57 AM [facility] Glucose 153(H) 70 - 100 mg/dL LAB CHEMISTRY METHOD 12/07/2024 7:57 AM [facility] BUN 31(H) 5 - 25 mg/dL LAB CHEMISTRY METHOD 12/07/2024 7:57 AM [facility] Creatinine 1.22(H) 0.50 - 1.10 mg/dL LAB CHEMISTRY METHOD 12/07/2024 7:57 AM [facility] eGFR 50(L) >=60 mL/min/1. 73m2 LAB CHEMISTRY METHOD 12/07/2024 7:57 AM [facility] Comment:Calculation based on the??Chronic Kidney Disease Epidemiology Collaboration (CKD-EPI) equation refit??without adjustment for race. BUN/Creatinine Ratio 25.4 LAB CHEMISTRY METHOD 12/07/2024 7:57 AM [facility] Calcium 8.7 8.5 - 10.5 mg/dL LAB CHEMISTRY METHOD 12/07/2024 7:57 AM [facility] Blood Venous blood specimen / Unknown Venipuncture / Unknown 12/07/2024 6:02 AM EST 12/07/2024 6:49 AM EST us Milagro WEBBER LAB BLOOD ORDERABLES Final Result [facility] [address] [place] [address], [place] [phone] from Last 3 Months Insurance [employer] [...] currently active code status orders. Care Teams Laryngologist Relationship Specialty Start Date End Date Amita Ruiz MD [address] [place] [address] PCP - General Internal Medicine 10/13/24
--- OUTSIDE RECORDS SUMMARY | 2025-03-06 16:18 | XMS_ITS ---
Author Organization [facility] Address [address] [place] [address] Care Team Providers Care Overseer Kosher Kitchen Name Role Phone Amita Ruiz MD Primary Care Provider Arie Eduardo Jr Unavailable Allergies Allergen (clinical drug ingredient) Drug/Non Drug Allergy documented on EMR Reaction Allergy Type Onset Date Status erythromycin Erythromycin Unknown Drug Allergy A ctive lisinopril Lisinopril Unknown Drug Allergy Activ e REASON FOR VISIT colon screening Medications Medication SIG (Take, Route, Frequency, Duration) Notes Start Date End Date Status Olmesartan Medoxomil-HCTZ 40-25 MG Oral for 90 Active Synthroid 125 MCG Oral for 90 Active Vitamin D3 50 MCG (1999) Oral for 90 Active metOLazone 10 MG TAKE 1 TABLET ORALLY DAILY ON WEDNESDAY, WEDNESDAY AND WEDNESDAY Oral for 90 Days Active Jardiance 10 MG TAKE 1 TABLET BY ELZA TH EVERY DAY Oral for 30 Days Active Xarelto 20 MG Oral for 90 Acti ve Metoprolol Succinate ER 100 MG 1 tablet Orally twice a day Active Alendronate Sodium 70 MG 1 tablet 30 min utes before the first food, beverage or medicine of the day with plain water Orally Active Amiodarone HCl 200 MG 1 tablet Orally On ce a day Active Furosemide 40 MG 1 tablet Orally Once a day Active Letrozole 2.5 MG 1 tablet Orally Once a day Active dilTIAZem HCl 30 MG TAKE 1 TABLET BY ELZA TH TWICE A DAY Oral for 30 Days Active Social History Tobacco Use: Social History Observation Description Date Details (start date - stop date) Never Smoker NA - NA Tobacco Use/Smoking Question Answer Notes Patient is a nonsmoker Alcohol Screen Question Answer Notes Did you have a drink containing alcohol in the p ast year? No Points 0 Interpretation Negative AUDIT-C (Standard) Question Answer Notes Did you have a drink containing alcohol in the p ast year? No Points 0 Interpretation Negative Problems Problem Type SNOMED Code ICD Code Onset Dates Problem Status W/U Status Risk Notes Problem [id number] Anemia, unspecified type (D64.9) Active confirmed Vital Signs Blood pressure systolic 111 mm Hg 02/16/20 25 Blood pressure diastolic 111 mm Hg 025 Height 5 ft 1 in in 02/15/2025 Weight 250 lbs 02/15/2025 BMI 47.23 kg/m2 02/15/2025 Encounters Encounter Location Date Provider Diagnosis [facility] [address] [place] [address] 02/15/2025 Aire Last Jr Anemia, unspecified type D64.9 Assessments Encounter Date Diagnosis (ICD Code) Assessment [...] Name Order Date OCCULT BLOOD STOOL 02/15/2025 Next Appt Details Follow Up: 6 Months, Reason: Provider Name:Arie jordan Jr, 08/20/2025 09:40:00 AM, [address] [place] [address] Drive, [address], [place], [address], Progress Notes * RAJ SOUZAOB:1960 ( 64 yo F)Acc No.[id number]:02/15/2025 Progress Notes Patient:?LIBBYBEATAY Provider:?Arie Last MD :1960???Age:64 Y???Sex:Female D ate:02/15/2025 Address:[address] [place], [place] [id number] Pcp:Amita Ruiz MD Subjective: * Chief Complaints: * ???1. Colon screening. * HPI: ???New symptom(s):? Tiffany is a pleasant 64-year-old woman seen today in consultation. She was last seen for colonoscopy in September 2023, with removal of benign colon polyps, and normal colon biopsies. She was diagnosed with breast cancer in the fall and underwent lumpectomy with negative lymph node dissection. She was treated with radiation and is on letrozole. She has been diagnosed with atrial fibrillation and congestive heart failure and has been seen by both cardiology and pulmonology specialties. She is having cardiopulmonary testing prior to ablation for A-fib at [facility]. She has also had ultrasound imaging on her lower extremities for vascular disease. She has been anemic and did not tolerate oral iron. She has been started on intravenous iron and is currently scheduled for multiple infusions. She has only received 1. Her last hematocrit in December was 30.5. She has had no rectal bleeding and has no complaints of upper GI symptoms. She takes MiraLAX for some chronic constipation. We discussed using Metamucil and MiraLAX today. 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 * Surgical History:?Thyroidect nael, lymph node exploration and removal , partial hysterectomy 2015, breast cancer right -lumpectomy with radiation 09/20/2024, vascular ds both legs . * Hospitalization/Major Diagno stic Procedure:?Atrial fibrillation with rapid ventricular response 01/21. * Family History:?Father: dece ased, diagnosed with HTN (hypertension).?Mother: .? No family history of colon cancer or liver cancer. * Social History:?Tobacco Use:?Tobacco Use/Smoking?Patient is a?nonsmoker.?Drugs/Alcohol:?Alcohol Screen?Did you have a drink containing alcohol in the past year??No,?Points?0,?Interpretation?Negative.?Miscellaneous:?Marital status: . Occupation: retired. ???Drug/Alcohol:?AUDIT-C (Standard)?Did you have a drink containing alcohol in the past year??No,?Points?0,?Interpretation?Negative.? * Medications:?Taking Letrozol e 2.5 MG Tablet 1 tablet Orally Once a day , Taking Metoprolol Succinate ER 100 MG Tablet Extended Release 24 Hour 1 tablet Orally twice a day , Taking Alendronate Sodium 70 MG Tablet 1 tablet 30 minutes before the first food, beverage or medicine of the day with plain water Orally , Taking Amiodarone HCl 200 MG Tablet 1 tablet Orally Once a day , Taking Furosemide 40 MG Tablet 1 tablet Orally Once a day , Taking Xarelto 20 MG Tablet Oral , Taking Olmesartan Medoxomil-HCTZ 40-25 MG Tablet Oral , Taking Synthroid 125 MCG Tablet Oral , Taking Vitamin D3 50 MCG (1999 UT) Capsule Oral , Taking metOLazone 10 MG Tablet TAKE 1 TABLET ORALLY DAILY ON WEDNESDAY, WEDNESDAY AND WEDNESDAY Oral , Taking Jardiance 10 MG Tablet TAKE 1 TABLET BY MOUTH EVERY DAY Oral , Taking dilTIAZem HCl 30 MG Tablet TAKE 1 TABLET BY MOUTH TWICE A DAY Oral , Discontinued Ferrous Sulfate 325 (65 Fe) MG Tablet 1 tablet Orally twice a day , Discontinued Omeprazole 20 MG Capsule Delayed Release Oral , Discontinued hydroCHLOROthiazide 25 MG Tablet Oral , Discontinued Metoprolol Tartrate 50 MG Tablet Oral , Discontinued MiraLax (colon prep) 17 GM/SCOOP Powder mixed with Gatorade or Crystal Light Orally begin at 5:00 p.m. the day before the procedure , Medication List reviewed and reconciled with the patient * Allergies:?Lisinopril, Eryth romycin. Objective: * Vitals:?Wt: 250 lbs, Ht: 5 f t 1 in, BMI:47.23Index, BP: 111/111 mm Hg, Wt-k.4. * Examination: ???General Examination: ???On examination today, she appears in no distress. She is ambulating with a rolling walker. Nasal O2 cannula is in place. Skin is anicteric. Lungs are clear. Heart shows a irregular rate and rhythm. Abdomen is soft without focal masses or tenderness. Extremities are nontender. Assessment: * Assessment: 1.?Anemia, unspecified type - D64.9 (Primary)??? At this time, we have recomm ended she have stool occult blood testing. We discussed giving the iron infusions a chance to provide an appropriate response in her hematocrit. She denies any upper GI symptoms and any active GI bleeding, and given that her recent colonoscopy was basically unremarkable, we have not recommended further GI evaluation at this time. She will have Hemoccult testing and follow- up in 6 months. Plan: * Treatment: * Procedure Codes:?3017F COLOR ECTAL CA SCREEN DOC REV, G9903 Pt scrn tbco id as non user, G8785 BP SCR NOT PRFRM REC REASON NOS * Follow Up:?6 Months * * Sign off status: Completed true * Provider:?Arie Last MD Date:?0 02/15/2025 Generated for Janie melendez/Nu/eTpachecosmitting on:?03/06/2025 04:18 PM EDT History and Physical Notes * HPI (History of Present Illness) Category Sub-Category Detail Notes Category Not es New symptom(s) Tiffany is a pleasant 64-year-old woman seen today in consultation. She was last seen for colonoscopy in September 2023, with removal of benign colon polyps, and normal colon biopsies. She was diagnosed with breast cancer in the fall and underwent lumpectomy with negative lymph node dissection. She was treated with radiation and is on letrozole. She has been diagnosed with atrial fibrillation and congestive heart failure and has been seen by both cardiology and pulmonology specialties. She is having cardiopulmonary testing prior to ablation for A-fib at [facility]. She has also had ultrasound imaging on her lower extremities for vascular disease. She has been anemic and did not tolerate oral iron. She has been started on intravenous iron and is currently scheduled for multiple infusions. She has only received 1. Her last hematocrit in December was 30.5. She has had no rectal bleeding and has no complaints of upper GI symptoms. She takes MiraLAX for some chronic constipation. We discussed using Metamucil and MiraLAX today. Examination Category Sub-Category Detail Notes Category Not es General Examination On exami nation today, she appears in no distress. She is ambulating with a rolling walker. Nasal O2 cannula is in place. Skin is anicteric. Lungs are clear. Heart shows a irregular rate and rhythm. Abdomen is soft without focal masses or tenderness. Extremities are nontender.
== END 2025-03-06 14:03 | disposition home or self-care (01) ==
LOC: HO.HVS 13:24
PROVIDERS: PCP Internal Medicine; Visit Provider Surgery Vascular Surgery
DX: I83.12 Varicose veins of left lower extremity with inflammation (principal); I89.0 Lymphedema, not elsewhere classified; I73.9 Peripheral vascular disease, unspecified
CPT/HCPCS: 99204; G2211

== ENCOUNTER → 2025-03-06 13:23 | Outpatient (BNVA) | payer OTHER, SELFPAY | PROVIDERS: PCP Internal Medicine; Visit Provider Surgery Vascular Surgery | DX: I83.12 Varicose veins of left lower extremity with inflammation (principal); I89.0 Lymphedema, not elsewhere classified; I73.9 Peripheral vascular disease, unspecified | CPT/HCPCS: 99202 ==

== ENCOUNTER 2025-03-14 14:18 | Outpatient (AMB) | payer MEDICAID, SELFPAY ==
[2025-03-14 14:27] VITALS: BP 120/70; PULSE 76; BMI 47.1
--- NOTE | 2025-03-14 14:27 | A.OFFVIS_ITS ---
Vital Signs 03/14/25 14:27 Height 5 ft 1 in Weight 249 lb 1.957 oz BMI 47.1 BP 120/70 Blood Pressure Location Lt brachial Position Sitting Pulse 76 Intake Visit Reasons: 3 mth s/p labs Intake Note: 3 month follow-up labs having palpitations every few days Tax Adjuster Required: No Intake Clinician: Intake Clinician Present Accompanied by: Spouse Allergies erythromycin base Allergy (Intermediate, Verified 03/06/25 13:33) Abdominal Pain lisinopril Allergy (Intermediate, Verified 03/06/25 13:33) Rash HPI Comments Details: This is a 64-year-old female patient with a history of paroxysmal AFib, hypertension, sleep apnea, and obesity. Following a COVID infection, she developed acute respiratory failure and AFib with RVR for which she is currently on 1 L nasal cannula oxygen therapy. Despite several adjustments to Lasix, she continued to experience leg swelling and shortness of breath. At her last visit, her torsemide was further adjusted. Since then, she underwent a cardiopulmonary test, which could not be completed due to her developing AFib with RVR. She was started on metolazone 3 times a week resulting in a 14 lb weight loss. She was also consulted with an station air traffic control specialist for potential ablation. Due to her hair thinning and ongoing oxygen therapy, Dr. Barney ordered a CTA of the chest and a TSH. He plans for an ablation in the summer with the completion of these tests. Today, the patient appears much improved and denies any chest pain, palpitations, dizziness, orthopnea, PND, presyncope, or syncope. She reports her leg swelling has improved significantly since metolazone. She also reports improvement in her gout flare-ups. She states she is compliant with all her medications. [facility] Medical History (HFpEF) heart failure with preserved ejection fraction Arthritis HX: breast cancer SOB (shortness of breath) On anticoagulant therapy Invasive ductal carcinoma of right breast in female A-fib Hypothyroid Osteoporosis Urethral stenosis Depression with anxiety Thyroid cancer Acid reflux Kidney stone QAMAR (obstructive sleep apnea) Hypertension Knee pain, left Surgical History History of lumpectomy of right breast (09/20/24) Hx of dilation of urethra Hx of cystoscopy H/O colonoscopy History of partial hysterectomy History of thyroidectomy Family History Mother Lung cancer Father HTN (hypertension) Melanoma Social History Household Members: Spouse Housing: House Are you a primary adult live in caregiver to a significant other at home: No Do you presently have visiting nurse or other home services: No Alcohol intake: current Alcohol intake frequency: does not drink Patient Tobacco Use Status: Never used Tobacco e-Cigarette/Vaping Use: Never Used service: No Current occupational status: unemployed Current occupation: right handed Cognitive needs: No Hearing needs: No Vision needs: Yes Female Reproductive History Menstrual Age of Menarche: 13 Review of Systems Const Denies chills, Denies fatigue, Denies fever(s), Denies frequent falls, Denies weakness, Denies weight gain and Denies weight loss ENT Denies dizziness Card Denies chest pain, Denies leg edema, Denies lightheadedness, Reports palpitations, Denies dyspnea, Denies dyspnea on exertion, Denies orthopnea and Denies other (loss of consciousness) Resp Denies cough, Denies dyspnea and Denies dyspnea on exertion GI Denies hematochezia and Denies change in stool character Musc Denies abnormal gait, Denies muscle weakness, Denies numbness, Denies radiating pain into limb and Denies tingling Neuro Denies abnormal gait, Denies dizziness, Denies frequent falls, Denies numbness, Denies tingling and Denies weakness Endo Denies fatigue and Reports palpitations Physical Exam Vital Signs: Last Vital Signs Pulse 76 03/14/25 14:27 BP 120/70 03/14/25 14:27 BMI result Body Mass Index 47.1 Const General: cooperative, healthy appearing, comfortable and no acute distress Orientation/consciousness: patient oriented x3 HEENT Head: Yes normal to inspection Neck Neck: Yes normal visual inspection, Yes trachea midline and Yes supple Chest Chest palpation & inspection: normal inspection of the chest Resp Effort & Inspection: normal respiratory effort Auscultation: clear to auscultation bilaterally, no crackles, no rales, no rhonchi and no wheezes Cardio Jugular venous distension: no JVD Palpation: normal PMI Rate: regular rate Rhythm: regular rhythm Heart sounds: S1 normal heart sound present, S2 normal heart sound present, no click, no gallops, no murmurs and no rubs Peripheral pulses: Peripheral pulses 2+ throughout GI Inspection: Yes normal to inspection Palpation (GI): Soft to palpation Auscultation: normal bowel sounds Skin General skin exam: no rashes or lesions noted Neuro General: patient oriented x3 Extrem General: Yes normal to inspection, No no pedal edema and No calf tenderness Psych Appearance: grossly normal Mental Status: mental status grossly normal Speech and movement: Normal speech and movement present Assessment & Plan Assessment & Plan (1) A-fib: Code(s): I48.91 - Unspecified atrial fibrillation Category: Medical Qualifiers: Atrial fibrillation type: paroxysmal Qualified Code(s): I48.0 - Paroxysmal atrial fibrillation Plan: Continue Xarelto for anticoagulation. Continue with amiodarone, diltiazem and metoprolol therapy for rhythm and rate control. Patient saw Dr. Barney end of January who plans to do the ablation in summertime. Advised to continue monitoring her rhythms at home with her cardia mobile. Given her reports of hair thinning, she has a TSH ordered for tomorrow. (2) Peripheral edema: Code(s): R60.0 - Localized edema Category: Medical Plan: This has significantly improved. Continue with metolazone and torsemide therapy. Previously was worked up for peripheral vascular disease which showed an abnormal ultrasound and is being followed by vascular surgery for this. Advised wearing compression socks and elevating legs when resting. Advised low- salt diet and fluid restriction of 1.5 L per day. For ongoing shortness of breath, continue with oxygen supplementation. We will refer her to pulmonary rehab. (3) Hypertension: Code(s): I10 - Essential (primary) hypertension Category: Medical Qualifiers: Hypertension type: primary hypertension Qualified Code(s): I10 - Essential (primary) hypertension Plan: Blood pressure is well-controlled today continue current regimen. (4) Obstructive sleep apnea: Code(s): G47.33 - Obstructive sleep apnea (adult) (pediatric) Category: Medical Plan: Patient is not using her CPAP machine, although she says she has 1 at home from several years ago. Patient is going next week to be fitted again for the CPAP. (5) Morbid obesity: Code(s): E66.01 - Morbid (severe) obesity due to excess calories Category: Medical Plan: Recommend heart healthy diet, exercise, and losing weight. Follow-up in 2 month. In the interim, patient will call the office with any concerns or change in symptoms. This note was generated using voice recognition software. While every effort has been made to ensure accuracy and proper accreditation specialist, there may be occasional errors that could affect the content or meaning of the described symptoms. Orders: Orders Pulmonary Rehab Today R06.00 - Dyspnea, unspecified Coding Level of Care Code Est Pt Level 4 (18917) Complex EM visit Add On G2211 Diagnoses Paroxysmal atrial fibrillation I48.0 Atrial fibrillation type: paroxysmal Peripheral edema R60.0 Primary hypertension I10 Hypertension type: primary hypertension Obstructive sleep apnea G47.33 Morbid obesity E66.01 Time Spent (min) 38 Comment Time spent in reviewing the chart, test results, assessment, counseling and documentation.
--- OUTSIDE RECORDS SUMMARY | 2025-03-14 17:05 | XMS_ITS | Patient Health Record ---
Author Organization [facility] Address [address] [place] [address] Care Team Providers Care Agency Sales Director Name Role Phone Amita Ruiz MD Primary Care Provider Arie Eduardo Jr Unavailable [phone] Allergies Allergen (clinical drug ingredient) Drug/Non Drug [...] Problem Status W/U Status Risk Notes Problem 093476208 Colon cancer screening (Z12.11) Active confirmed Problem 527580398 Anemia, unspecified type (D64.9) Active confirmed Problem 29409834 Irritable bowel syndrome with both constipation and diarrhea (K58.2) Active confirmed Vital Signs Blood pressure diastolic 111 mm Hg 02/15/2025 Height 5 ft 1 in in 02/15/2025 Blood pressure systolic 111 mm Hg 02/15/2025 Weight 250 lbs 02/15/2025 BMI 47.23 kg/m2 02/15/2025 Encounters Encounter Location Date Provider Diagnosis [facility] [address] [place] [address] 02/15/2025 Arie Last Jr Anemia, unspecified type D64.9 [facility] [address] [place] [address] 02/08/2025 Arie Last Jr Assessments Encounter Date [...] Provider Name:Arie jordan Jr, 08/20/2025 09:40:00 AM, [address] [place] [address], [address], [place], [address], Insurance Providers Payer Name Payer Address Payer Phone Subscriber Number Group Number Insured Name Patient Relationship to Insured Coverage Start Date Coverage End Date [facility] [address] [address] [place], [place] [id number] TIFFANY SOUZA Self - patient is the insured [place] [employer] [address] [place] [id number] TIFFANY SOUZA Self - patient is the [...]
--- OUTSIDE RECORDS SUMMARY | 2025-03-14 17:05 | XMS_ITS ---
Author Organization [facility] Address [address] [place] [address] Phone Care Team Providers Care Historiographer Name Role Phone Amita Ruiz MD Primary Care Provider [phone] Active Problems Problem Noted Date Diagnosed Date COVID-19 12/01/2024 Acute hypoxemic respiratory failure due to COVID-19 ([facility] V24, [facility] V28) 12/01/2024 Malignant neoplasm of upper- outer quadrant of right breast in female, estrogen receptor positive ([facility] V24, [facility] V28) 11/09/2024 Cancer Staging:Pathologic:Stage IA(pT1c, pN0, cM0, G1, ER+, NV+, HER2-) - Signed by Radha Bourgeois MD on 11/09/2024 Iron deficiency anemia 11/07/2024 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
--- OUTSIDE RECORDS SUMMARY | 2025-03-14 17:05 | XMS_ITS ---
Author Organization [facility] Address [address] [place] [address] Care Team Providers Care Garnisher Name Role Phone Amita Ruiz MD Primary [...] Problem Status W/U Status Risk Notes Problem [id number] Anemia, unspecified type (D64.9) Active confirmed Vital Signs Blood pressure systolic 111 mm Hg 02/16/20 25 Blood pressure diastolic 111 mm Hg 025 Height 5 ft 1 in in 02/15/2025 Weight 250 lbs 02/15/2025 BMI 47.23 kg/m2 02/15/2025 Encounters Encounter Location Date Provider Diagnosis [facility] [address] [place] [address] 02/15/2025 Arie Last Jr Anemia, unspecified type D64.9 Assessments [...] Provider Name:Arie jordan Jr, 08/20/2025 09:40:00 AM, [address] [place] [address] Drive, [address], [place], [address], Progress Notes * RAJ SOUZAOB:1960 ( 64 yo F)Acc No.[id number]:02/15/2025 Progress Notes Patient:?LIBBYBEATAY Provider:?Arie Last MD :1960???Age:64 Y???Sex:Female D ate:02/15/2025 Address:[address] [place], [place] [id number] Pcp:Amita Ruiz MD Subjective: * Chief Complaints: [...] testing prior to ablation for A-fib at [facility]. She has also had ultrasound imaging on [...] MD Date:?0 02/15/2025 Generated for Janie melendez/Nu/eTpachecosmitting on:?03/14/2025 05:05 PM EDT History and Physical Notes * [...] testing prior to ablation for A-fib at [facility]. She has also had ultrasound imaging on [...]
--- OUTSIDE RECORDS SUMMARY | 2025-03-14 17:05 | XMS_ITS ---
Author Organization [facility] Address [address] [place] [address] Care Team Providers Care Hot Shot Name Role Phone Amita Ruiz MD Primary Care Provider Jorje Last Jr, Arie Gibson [phone] REASON FOR VISIT pathology Encounters Encounter Location Date Provider Diagnosis [facility] [address] [place] [address] 11/04/2023 Arie Last Jr Plan Of Treatment Next Appt Details Provider Name:Arie jordan Jr, 08/20/2025 09:40:00 AM, [address], [address], [place], [address], Progress Notes * BEATA SOUZAELMAOB:1960 ( 63 yo F)Acc No.[id number]:11/04/2023 Patient:?LIBBY TIFFANY :1960???Age:63 Y???Sex:Female Address:[address] [place] [address], [address] * true * Date:? Generated for Printi al/Nu/eTransmitting on:?03/14/2025 05:05 PM EDT
--- OUTSIDE RECORDS SUMMARY | 2025-03-14 17:05 | XMS_ITS | Clinical Summary ---
Author Organization [facility] Address [address] [place] [address] Phone Care Team Providers Care Box Closing Machine Operator Name Role Phone Amita Ruiz MD Primary Care Provider [phone] Allergies Active Allergy Reactions Criticality Noted Date [...] Acute hypoxemic respiratory failure due to COVID-19 ([facility] V24, [facility] V28) 12/01/2024 Malignant neoplasm of upper- outer quadrant of right breast in female, estrogen receptor positive (CMS/HCC V24, CMS/[facility] V28) 11/09/2024 Cancer Staging:Pathologic:Stage IA(pT1c, pN0, cM0, G1, ER+, DE+, HER2-) - Signed by Radha Bourgeois MD on 11/09/2024 Iron deficiency anemia 11/07/2024 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 [address] [place] [phone] Arabella King, MICHAEL Malignant neoplasm of upper-outer quadrant of right breast in female, estrogen receptor positive ([facility] V24, [facility] V28) (Primary Dx) Discharge Disposition: Home or Self Care 01/16/2025 8:56 AM EST - 01/16/2025 11:59 PM EST Hospital Encounter [facility]iation Oncology [address] [place] [phone] Arabella King, MICHAEL Malignant neoplasm of upper-outer quadrant of right breast in female, estrogen receptor positive ([facility] V24, [facility] V28) (Primary Dx) Discharge Disposition: Home or Self Care 01/16/2025 8:24 AM EST - 01/16/2025 11:59 PM EST Hospital Encounter [facility] Radiation Oncology [address] [place] [phone] Discharge Disposition: Home or Self Care 01/15/2025 8:25 AM EST - 01/15/2025 11:59 PM EST Hospital Encounter [facility]iation Oncology [address] [place] [phone] Discharge Disposition: Home or Self Care 01/12/2025 8:52 AM EST - 01/12/2025 11:59 PM EST Hospital Encounter [facility]iation Oncology [address] [place] [phone] Radha Bourgeois MD Malignant neoplasm of upper-outer quadrant of right breast in female, estrogen receptor positive (CMS/HCC V24, CMS/HCC V28) (Primary Dx) Discharge Disposition: Home or Self Care 01/12/2025 8:29 AM EST - 01/12/2025 11:59 PM EST Hospital Encounter [facility] Radiation Oncology [address] [place] [phone] Discharge Disposition: Home or Self Care 01/11/2025 2:03 PM EST - 01/11/2025 11:59 PM EST Hospital Encounter [facility]iation Oncology [address] [place] [phone] Discharge Disposition: Home or Self Care 01/10/2025 8:36 AM EST - 01/10/2025 11:59 PM EST Hospital Encounter [facility]iation Oncology [address] [place] [phone] Discharge Disposition: Home or Self Care 01/09/2025 8:26 AM EST - 01/09/2025 11:59 PM EST Hospital Encounter [facility]iation Oncology [address] [place] [phone] Discharge Disposition: Home or Self Care 01/08/2025 8:46 AM EST - 01/08/2025 11:59 PM EST Hospital Encounter [facility]iation Oncology [address] [place] [phone] Discharge Disposition: Home or Self Care 01/05/2025 8:46 AM EST - 01/05/2025 11:59 PM EST Hospital Encounter [facility]iation Oncology [address] [place] [phone] Radha Bourgeois MD Malignant neoplasm of upper-outer quadrant of right breast in female, estrogen receptor positive (CMS/HCC V24, CMS/HCC V28) (Primary Dx) Discharge Disposition: Home or Self Care 01/05/2025 8:27 AM EST - 01/05/2025 11:59 PM EST Hospital Encounter [facility]iation Oncology [address] [place] [phone] Discharge Disposition: Home or Self Care 01/04/2025 8:57 AM EST - 01/04/2025 11:59 PM EST Hospital Encounter [facility]iation Oncology [address] [place] [phone] Discharge Disposition: Home or Self Care 01/03/2025 8:32 AM EST - 01/03/2025 11:59 PM EST Hospital Encounter [facility]iation Oncology [address] [place] [phone] Discharge Disposition: Home or Self Care 01/02/2025 8:47 AM EST - 01/02/2025 11:59 PM EST Hospital Encounter [facility]iation Oncology [address] [place] [phone] Discharge Disposition: Home or Self Care 01/01/2025 8:28 AM EST - 01/01/2025 11:59 PM EST Hospital Encounter [facility]iation Oncology [address] [place] [phone] Discharge Disposition: Home or Self Care 12/21/2024 8:35 AM EST - 12/21/2024 11:59 PM EST Hospital Encounter [facility]iation Oncology [address] [place] [phone] Discharge Disposition: Home or Self Care 12/20/2024 8:41 AM EST - 12/20/2024 11:59 PM EST Hospital Encounter [facility]iation Oncology [address] [place] [phone] Discharge Disposition: Home or Self Care 12/19/2024 8:52 AM EST - 12/19/2024 11:59 PM EST Hospital Encounter [facility]iation Oncology [address] [place] [phone] Discharge Disposition: Home or Self Care 12/18/2024 11:15 AM EST - 12/18/2024 11:59 PM EST Hospital Encounter [facility]iation Oncology [address] [place] [phone] Pari Martinez MD Discharge Disposition: Home or Self Care 12/18/2024 10:53 AM EST - 12/18/2024 11:59 PM EST Hospital Encounter [facility] Radiation Oncology [address] [place] [address] Discharge Disposition: Home or Self Care from Last 3 Months Surgical History Surgery Date Site/Laterality Comments COLONOSCOPY BREAST LUMPECTOMY 09/20/2024 Right PARTIAL HYSTERECTOMY THYROIDECTOMY CYSTOSCOPY Medical History Medical History Date Comments Cancer ([facility] V24, [facility] V28) Gout A-fib ([facility] V24, [facility] V28[facility] Thyroid cancer ([facility] V24, [facility] V28) Sleep apnea Reflux esophagitis Family History Medical [...] TREATMENT SUMMARY Routine 12/18/2024 11:20 AM EST from Last 3 Months Results [...] GY ORDERABLES Final Result Performing Organization Address City/[facility]/ZIP Co de Phone Number [facility] [...] GY ORDERABLES Final Result Performing Organization Address City/[facility]/ZIP Co de Phone Number [facility] RADI[facility] ONCOLOGY [...] 8:58 AM EST Physician Radiation Oncology RADIATION NO GY ORDERABLES Final Result Performing Organization Address City/State/[facility] Co de Phone Number [facility] [...] 8:46 AM EST Physician Radiation Oncology RADIATION NO GY ORDERABLES Final Result Performing Organization Address City/[facility]/ZIP Co de Phone Number [facility] RADIATION ONCOLOGY [...] GY ORDERABLES Final Result Performing Organization Address City/[facility] Co de Phone Number [facility] [...] RADIATION ONCOLOGY 12/18/2024 11:2 0 AM EST us Physician Radiation Oncology RADIATION ONCOLO GY ORDERABLES Final Result [facility] from Last 3 Months Insurance [employer] [...] currently active code status orders. Care Teams Box Closing Machine Operator Relationship Specialty Start Date End Date Amita Ruiz MD [address] [facility] [place] [address] PCP - General Internal Medicine 10/13/24
--- OUTSIDE RECORDS SUMMARY | 2025-03-14 17:05 | XMS_ITS ---
Author Organization [facility] Address [address] [place] [address] Care Team Providers Care Piper Installer Name Role Phone Amita Ruiz MD Primary Care Provider Jorje Last Jr, Arie Gibson [phone] REASON FOR VISIT Appointment Encounters Encounter Location Date Provider Diagnosis [facility] [address] [place] [address] 02/08/2025 Arie Last Jr Plan Of Treatment Next Appt Details Provider Name:Arie jodran Jr, 08/20/2025 09:40:00 AM, [address], [address], [place], [address], Progress Notes * RAJ SOUZAOB:1960 ( 64 yo F)Acc No.[id number]:02/08/2025 Patient:?LIBBY TIFFANY :1960???Age:64 Y???Sex:Female Address:[address] [place] [address], [address] * true * Date:? Generated for Printi al/Nu/eTransmitting on:?03/14/2025 05:05 PM EDT
== END 2025-03-14 15:01 | disposition home or self-care (01) ==
LOC: HO.HCS 14:19
PROVIDERS: PCP Internal Medicine; Visit Provider Nurse Practitioner Family
DX: I48.0 Paroxysmal atrial fibrillation (principal); R60.0 Localized edema; I10 Essential (primary) hypertension; G47.33 Obstructive sleep apnea (adult) (pediatric); E66.01 Morbid (severe) obesity due to excess calories
CPT/HCPCS: 99214

== ENCOUNTER → 2025-03-14 14:18 | Outpatient (BNVA) | payer OTHER, SELFPAY | PROVIDERS: PCP Internal Medicine; Visit Provider Nurse Practitioner Family | DX: I48.0 Paroxysmal atrial fibrillation (principal); I10 Essential (primary) hypertension; R60.0 Localized edema; G47.33 Obstructive sleep apnea (adult) (pediatric); E66.01 Morbid (severe) obesity due to excess calories; Z68.42 Body mass index [BMI] 45.0-49.9, adult | CPT/HCPCS: 99212 ==

== ENCOUNTER 2025-03-16 09:39 | Outpatient (REF) | payer OTHER, SELFPAY ==
--- OUTSIDE RECORDS SUMMARY | 2025-03-16 10:15 | XMS_ITS | Patient Health Record ---
Author Organization [facility] Address [address] [place] [phone] Care Team Providers Care Liquid Waste Treatment Plant Operator Name Role Phone Amita Ruiz [...] Problem Status W/U Status Risk Notes Problem 839107591 Colon cancer screening (Z12.11) Active confirmed Problem 576395663 Anemia, unspecified type (D64.9) Active confirmed Problem [id number] Irritable bowel syndrome with both constipation and diarrhea (K58.2) Active confirmed Vital Signs Blood pressure diastolic 111 mm Hg 02/15/2025 Height 5 ft 1 in in 02/15/2025 Blood pressure systolic 111 mm Hg 02/15/2025 Weight 250 lbs 02/15/2025 BMI 47.23 kg/m2 02/15/2025 Encounters Encounter Location Date Provider Diagnosis [facility] [address] [place] [phone] 02/15/2025 Arie Last Jr Anemia, unspecified type D64.9 [facility] [address] [place] [phone] 02/08/2025 Arie Last Jr Assessments Encounter Date [...] Provider Name:Arie jordan Jr, 08/20/2025 09:40:00 AM, [address] [place] [address], [address], [place], [address], Insurance Providers Payer Name Payer Address Payer Phone Subscriber Number Group Number Insured Name Patient Relationship to Insured Coverage Start Date Coverage End Date [facility] [address] [address] [place], [place] [id number] TIFFANY SOUZA Self - patient is the insured MEDICA[employer] OF [employer] [address] [place] [phone] [id number] TIFFANY SOUZA Self - patient is the [...]
--- OUTSIDE RECORDS SUMMARY | 2025-03-16 10:15 | XMS_ITS ---
Author Organization [facility] Address [address] [place] [address] Phone Care Team Providers Care Batch Operator Name Role Phone Amita Ruiz MD Primary Care Provider [phone] Active Problems Problem Noted Date Diagnosed Date COVID-19 12/01/2024 Acute hypoxemic respiratory failure due to COVID-19 ([facility], [facility] V28) 12/01/2024 Malignant neoplasm of upper- outer quadrant of right breast in female, estrogen receptor positive ([facility] V24, [facility] V28) 11/09/2024 Cancer Staging:Pathologic:Stage IA(pT1c, pN0, cM0, G1, ER+, DE+, HER2-) - Signed by Radha Borugeois MD on 11/09/2024 Iron deficiency anemia 11/07/2024 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
--- OUTSIDE RECORDS SUMMARY | 2025-03-16 10:15 | XMS_ITS ---
Author Organization [facility] Address [address] [place] [address] Care Team Providers Care Environmental Field Technician Name Role Phone Amita Ruiz MD Primary Care Provider Jorje Last Jr, Arie Gibson REASON FOR VISIT pathology Encounters Encounter Location Date Provider Diagnosis [facility] [address] [place] [address] 11/04/2023 Arie Last Jr Plan Of Treatment Next Appt Details Provider Name:Arie jordan Jr, 08/20/2025 09:40:00 AM, [address], [address], [place], [address], Progress Notes * LIBBY RAJOB:1960 ( 63 yo F)Acc No.[id number]:11/04/2023 Patient:?LIBBYTIFFANY :1960???Age:63 Y???Sex:Female Address:[address] [place] [address], [address] * true * Date:? Generated for Printi al/Nu/eTransmitting on:?03/16/2025 10:15 AM EDT
--- OUTSIDE RECORDS SUMMARY | 2025-03-16 10:15 | XMS_ITS ---
Author Organization [facility] Address [address] [place] [address] Care Team Providers Care Electrical Foreman Name Role Phone Amita Ruiz MD Primary Care Provider Jorje Last Jr, Arie Gibson [phone] REASON FOR VISIT Appointment Encounters Encounter Location Date Provider Diagnosis [facility] [address] [place] [address] 02/08/2025 Arie Last Jr Plan Of Treatment Next Appt Details Provider Name:Arie jordan Jr, 08/20/2025 09:40:00 AM, [address], [address], [place], [address], Progress Notes * BEATA SOUZAELMAOB:1960 ( 64 yo F)Acc No.[id number]:02/08/2025 Patient:?LIBBY TIFFANY :1960???Age:64 Y???Sex:Female Address:[address] [place] [address], [address] * true * Date:? Generated for Printi al/Nu/eTransmitting on:?03/16/2025 10:15 AM EDT
--- OUTSIDE RECORDS SUMMARY | 2025-03-16 10:16 | XMS_ITS ---
Author Organization [facility] Address [address] [place] [address] Care Team Providers Care Drywall Foreman Name Role Phone Amita Ruiz MD Primary Care Provider Arie Eduardo Jr Unavailable [phone] Allergies Allergen (clinical drug ingredient) Drug/Non Drug [...] Problem Status W/U Status Risk Notes Problem [id number] Anemia, unspecified type (D64.9) Active confirmed Vital Signs Blood pressure systolic 111 mm Hg 02/16/20 25 Blood pressure diastolic 111 mm Hg 025 Height 5 ft 1 in in 02/15/2025 Weight 250 lbs 02/15/2025 BMI 47.23 kg/m2 02/15/2025 Encounters Encounter Location Date Provider Diagnosis [facility] [address] [place] [address] 02/15/2025 Aire Last Jr Anemia, unspecified type [...] Provider Name:Arie jordan Jr, 08/20/2025 09:40:00 AM, [address] [place] [address] Drive, [address], [place], [address], Progress Notes * RAJ SOUZAOB:1960 ( 64 yo F)Acc No.[id number]:02/15/2025 Progress Notes Patient:?LIBBYBEATAY Provider:?Arie Last MD :1960???Age:64 Y???Sex:Female D ate:02/15/2025 Address:[address] [place], [place] [id number] Pcp:Amita Ruiz MD Subjective: * Chief Complaints: [...] testing prior to ablation for A-fib at [facility]. She has also had [...] MD Date:?0 02/15/2025 Generated for Janie melendez/Nu/eTpachecosmitting on:?03/16/2025 10:15 AM EDT History and Physical Notes * HPI [...] testing prior to ablation for A-fib at [facility]. She has also had [...]
--- OUTSIDE RECORDS SUMMARY | 2025-03-16 10:16 | XMS_ITS | Clinical Summary ---
Author Organization [facility] Address [address] [place] [address] Phone Care Team Providers Care Ship Unloader Name Role Phone Amita Ruiz MD Primary Care Provider [phone] Allergies Active Allergy Reactions Criticality Noted Date [...] Acute hypoxemic respiratory failure due to COVID-19 ([facility] V24, [facility] V28) 12/01/2024 Malignant neoplasm of upper- outer quadrant of right breast in female, estrogen receptor positive (CMS/HCC V24, CMS/[facility] V28) 11/09/2024 Cancer Staging:Pathologic:Stage IA(pT1c, pN0, cM0, G1, ER+, PA+, HER2-) - Signed by Radha Bourgeois MD on 11/09/2024 Iron deficiency anemia 11/07/2024 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 ([facility] V24) 11/07/2024 Depression with anxiety 11/07/2024 Arthritis 11/07/2024 A-fib ([facility] V24, [facility] V28) 11/07/2024 Hypothyroidism Resolved Problems Problem Noted Date Diagnosed Date Resolved Date Anemia 11/07/2024 11/07/2024 Encounters Date Type Department Care Team Description 02/15/2025 10:57 AM EDT - 02/15/2025 11:59 PM EDT Hospital Encounter [facility]iation Oncology [address] [place] [phone] Arabella King, MICHAEL Malignant neoplasm of upper-outer quadrant of right breast in female, estrogen receptor positive ([facility] V24, [facility] V28) (Primary Dx) Discharge Disposition: Home or Self Care 01/16/2025 8:56 AM EST - 01/16/2025 11:59 PM EST Hospital Encounter [facility] [address] [place] [phone] Arabella King, MICHAEL Malignant neoplasm of upper-outer quadrant of right breast in female, estrogen receptor positive ([facility] V24, [facility] V28) (Primary Dx) Discharge Disposition: Home or Self Care 01/16/2025 8:24 AM EST - 01/16/2025 11:59 PM EST Hospital Encounter [facility] [address] [place] [phone] Discharge Disposition: Home or Self Care 01/15/2025 8:25 AM EST - 01/15/2025 11:59 PM EST Hospital Encounter [facility] [address] [place] [phone] Discharge Disposition: Home or Self Care 01/12/2025 8:52 AM EST - 01/12/2025 11:59 PM EST Hospital Encounter [facility] [address] [place] [phone] Radha Bourgeois MD Malignant neoplasm of upper-outer quadrant of right breast in female, estrogen receptor positive (CMS/HCC V24, CMS/HCC V28) (Primary Dx) Discharge Disposition: Home or Self Care 01/12/2025 8:29 AM EST - 01/12/2025 11:59 PM EST Hospital Encounter [facility] [address] [place] [phone] Discharge Disposition: Home or Self Care 01/11/2025 2:03 PM EST - 01/11/2025 11:59 PM EST Hospital Encounter [facility] [address] [place] [phone] Discharge Disposition: Home or Self Care 01/10/2025 8:36 AM EST - 01/10/2025 11:59 PM EST Hospital Encounter [facility] [address] [place] [phone] Discharge Disposition: Home or Self Care 01/09/2025 8:26 AM EST - 01/09/2025 11:59 PM EST Hospital Encounter [facility] [address] [place] [phone] Discharge Disposition: Home or Self Care 01/08/2025 8:46 AM EST - 01/08/2025 11:59 PM EST Hospital Encounter [facility] [address] [place] [phone] Discharge Disposition: Home or Self Care 01/05/2025 8:46 AM EST - 01/05/2025 11:59 PM EST Hospital Encounter [facility] [address] [place] [phone] Radha Bourgeois MD Malignant neoplasm of upper-outer quadrant of right breast in female, estrogen receptor positive (CMS/HCC V24, CMS/HCC V28) (Primary Dx) Discharge Disposition: Home or Self Care 01/05/2025 8:27 AM EST - 01/05/2025 11:59 PM EST Hospital Encounter [facility] [address] [place] [phone] Discharge Disposition: Home or Self Care 01/04/2025 8:57 AM EST - 01/04/2025 11:59 PM EST Hospital Encounter [facility] [address] [place] [phone] Discharge Disposition: Home or Self Care 01/03/2025 8:32 AM EST - 01/03/2025 11:59 PM EST Hospital Encounter [facility] [address] [place] [phone] Discharge Disposition: Home or Self Care 01/02/2025 8:47 AM EST - 01/02/2025 11:59 PM EST Hospital Encounter [facility] [address] [place] [phone] Discharge Disposition: Home or Self Care 01/01/2025 8:28 AM EST - 01/01/2025 11:59 PM EST Hospital Encounter [facility] [address] [place] [phone] Discharge Disposition: Home or Self Care 12/21/2024 8:35 AM EST - 12/21/2024 11:59 PM EST Hospital Encounter [facility] [address] [place] [phone] Discharge Disposition: Home or Self Care 12/20/2024 8:41 AM EST - 12/20/2024 11:59 PM EST Hospital Encounter [facility] [address] [place] [phone] Discharge Disposition: Home or Self Care 12/19/2024 8:52 AM EST - 12/19/2024 11:59 PM EST Hospital Encounter [facility] [address] [place] [phone] Discharge Disposition: Home or Self Care 12/18/2024 11:15 AM EST - 12/18/2024 11:59 PM EST Hospital Encounter [facility] [address] [place] [phone] Pari Martinez MD Discharge Disposition: Home or Self Care 12/18/2024 10:53 AM EST - 12/18/2024 11:59 PM EST Hospital Encounter [facility] [address] [place] [address] Discharge Disposition: Home or Self Care from Last 3 Months Surgical History Surgery Date Site/Laterality Comments COLONOSCOPY BREAST LUMPECTOMY 09/20/2024 Right PARTIAL HYSTERECTOMY THYROIDECTOMY CYSTOSCOPY Medical History Medical History Date Comments Cancer ([facility] V24, [facility] V28) Gout A-fib ([facility] V24, [facility] V28) Thyroid cancer ([facility] V24, [facility] V28) Sleep apnea Reflux esophagitis Family [...] GY ORDERABLES Final Result Performing Organization Address City/[facility]/ZIP Co de Phone Number [facility]COL[facility] [...] GY ORDERABLES Final Result Performing Organization Address City/[facility]/ZIP Co de Phone Number [facility] RADIATION ONCOLOGY [...] GY ORDERABLES Final Result Performing Organization Address City/State/[facility] Co de Phone Number [facility] RADIATION ONCOLOGY [...] GY ORDERABLES Final Result Performing Organization Address City/[facility]/ZIP Co de Phone Number [facility] RADIATION ONCOLOGY [...] GY ORDERABLES Final Result Performing Organization Address City/[facility] Co de Phone Number [facility]IATION ONCOLOGY [...] currently active code status orders. Care Teams Ship Unloader Relationship Specialty Start Date End Date Amita Ruiz MD [address] [facility] [place] [address] PCP - General Internal Medicine 10/13/24
[2025-03-16 14:34] LABS: Alanine Aminotransferase 12 U/L (0-31); Albumin Level 3.8 g/dL (3.5-5.0); Anion Gap 15 (12-20); Aspartate Amino Transferase 20 U/L (5-31); Bilirubin Total 0.4 mg/dL (0.0-1.0); Blood Urea Nitrogen 35 mg/dL (9-16); Calcium 9.2 mg/dL (8.4-10.2); Carbon Dioxide 45 mmol/L (22-29); Chloride 82 mmol/L (96-108); Estimated Glomerular Filt Rate 48; Glucose Random 212 mg/dL (60-115); Magnesium 2.4 mg/dL (1.6-2.6); Potassium 3.3 mmol/L (3.3-5.1); Sodium 139 mmol/L (135-145); Total Protein 6.6 g/dL (6.5-8.0)
[2025-03-16 14:43] LABS: TSH reflex Free T4 5.36 uIU/mL (0.32-4.0)
[2025-03-16 19:09] LABS: Alkaline Phosphatase 76 U/L (39-117)
== END 2025-03-16 09:40 | disposition home or self-care (01) ==
LOC: HO.HMGCLDS 09:39
PROVIDERS: PCP Internal Medicine; Visit Provider Internal Medicine
DX: E87.6 Hypokalemia (principal); I73.9 Peripheral vascular disease, unspecified; E66.2 Morbid (severe) obesity with alveolar hypoventilation; I48.0 Paroxysmal atrial fibrillation
CPT/HCPCS: 36415; 80053; 83735; 84439; 84443

== ENCOUNTER 2025-04-03 12:00 | Outpatient (RCR) | payer OTHER, SELFPAY ==
[2025-02-12 12:10] VITALS: BP 137/56; PULSE 81; RESP 16; TEMP 36.9; O2SAT 95
[2025-02-12] MEDS: Iron Sucrose Complex 200 MG/10 ML VIAL IVPUSH (12:21)
[2025-02-20 13:42] VITALS: BP 136/50; PULSE 80; RESP 16; TEMP 36.7; O2SAT 96
[2025-02-20] MEDS: Iron Sucrose Complex 200 MG/10 ML VIAL IVPUSH (13:51)
[2025-02-20] MEDS: 0.9 % Sodium Chloride Flush 10 ML SYRINGE 5 ML IVFLUSH (13:51)
[2025-02-28 11:27] VITALS: BP 168/67; PULSE 70; RESP 20; TEMP 37; O2SAT 97
[2025-02-28] MEDS: Iron Sucrose Complex 200 MG/10 ML VIAL IVPUSH (11:38)
[2025-03-07 11:35] VITALS: BP 126/68; PULSE 110; RESP 16; TEMP 36.3; O2SAT 98
[2025-03-07] MEDS: Iron Sucrose Complex 200 MG/10 ML VIAL IVPUSH (11:42)
[2025-03-07 11:48] LABS: Hematocrit 36.3 % (37.0-47.0); Hemoglobin 10.9 g/dl (12.0-16.0); Mean Corpuscular Hemoglobin 26.5 pg (27.0-33.0); Mean Corpuscular Volume 88.1 fL (80.0-98.0); Mean Platelet Volume 9.8 fL (9.4-12.3); Platelet Count 369 X10*3/uL (160-400); Red Blood Count 4.12 X10*6/uL (4.20-5.50); Red Cell Distribution Width 21.2 % (11.0-16.0); White Blood Count 17.3 X10*3/uL (4.8-10.8)
[2025-03-07 12:19] LABS: Ferritin 198 ng/mL (10-250)
[2025-03-14] MEDS: Iron Sucrose Complex 200 MG in 0.9 % Sodium Chloride 100 ML 440 MG IV (13:32)
[2025-03-21 11:30] VITALS: BP 147/39; PULSE 80; RESP 16; TEMP 36.4; O2SAT 95
[2025-03-21] MEDS: Iron Sucrose Complex 200 MG in 0.9 % Sodium Chloride 100 ML 440 MG IV (11:36)
[2025-03-28] MEDS: Iron Sucrose Complex 200 MG in 0.9 % Sodium Chloride 100 ML 440 MG IV (13:06)
[2025-03-28 13:07] VITALS: BP 135/55; PULSE 78; RESP 16; TEMP 36.9; O2SAT 96
[2025-04-03 12:03] VITALS: BP 135/59; PULSE 18; RESP 18; TEMP 36.6
[2025-04-03 12:26] LABS: Hematocrit 35.3 % (37.0-47.0); Hemoglobin 10.6 g/dl (12.0-16.0); Mean Corpuscular Hemoglobin 28.6 pg (27.0-33.0); Mean Corpuscular Volume 95.4 fL (80.0-98.0); Mean Platelet Volume 9.1 fL (9.4-12.3); Platelet Count 243 X10*3/uL (160-400); Red Cell Distribution Width 19.1 % (11.0-16.0); White Blood Count 10.7 X10*3/uL (4.8-10.8)
[2025-04-03] MEDS: Iron Sucrose Complex 200 MG in 0.9 % Sodium Chloride 100 ML 440 MG IV (12:30)
[2025-04-03 12:58] LABS: Ferritin 385 ng/mL (10-250)
[2025-04-03 15:25] LABS: Anion Gap 21 (12-20)
[2025-04-03 15:53] LABS: Alanine Aminotransferase 20 U/L (0-31); Albumin Level 3.7 g/dL (3.5-5.0); Aspartate Amino Transferase 39 U/L (5-31); Bilirubin Total 0.4 mg/dL (0.0-1.0); Blood Urea Nitrogen 25 mg/dL (9-16); Calcium 9.3 mg/dL (8.4-10.2); Carbon Dioxide 41 mmol/L (22-29); Chloride 83 mmol/L (96-108); Estimated Glomerular Filt Rate 47; Glucose Random 263 mg/dL (60-115); Potassium 3.7 mmol/L (3.3-5.1); Sodium 141 mmol/L (135-145); Total Protein 6.6 g/dL (6.5-8.0)
[2025-04-03 19:51] LABS: Alkaline Phosphatase 76 U/L (39-117)
== END 2025-04-03 13:02 | disposition home or self-care (01) ==
LOC: HO.INF 12:00
PROVIDERS: PCP Internal Medicine; Visit Provider Internal Medicine Medical Oncology
DX: D50.9 Iron deficiency anemia, unspecified (principal)
CPT/HCPCS: 36415; 80053; 82728; 84443; 85027; 96365; 96374; 96523; J1756

== ENCOUNTER 2025-04-10 13:24 | Outpatient (REF) | payer OTHER, SELFPAY ==
--- NOTE | ~2025-04-10 | US_ITS ---
EXAMINATION: US LOWER EXTREMITY VENOUS (REFLUX EXAM), BILATERAL CLINICAL INFORMATION: Varices COMPARISON: December 21, 2024. TECHNIQUE: Color flow triplex imaging and compression Doppler was performed to evaluate both the deep and the superficial systems bilaterally. To evaluate the superficial system, the examination was performed in the upright position. Color-flow Doppler ultrasound and compression ultrasound were utilized. In addition, maneuvers were utilized to demonstrate reflux. FINDINGS: 1. DEEP VENOUS ULTRASOUND OF THE RIGHT LOWER EXTREMITY: Common Femoral Vein: Compressible, normal respiratory variation and augmented flow. Femoral Vein: Compressible, normal color flow and augmentation. Popliteal Vein: Compressible, normal augmentation. Deep Reflux: There is no evidence of reflux in the deep system in either the common femoral vein, superficial femoral or the popliteal vein. There is a 1.5 cm septated anechoic lesion in the popliteal fossa without flow on color Doppler interrogation. 2. SUPERFICIAL ULTRASOUND WITH DOPPLER OF RIGHT LOWER EXTREMITY: GREAT SAPHENOUS VEIN: Saphenofemoral Junction: 0.7 cm; Reflux: 0 ms Proximal Thigh: 0.5 cm; Reflux: 0 ms Mid Thigh: 0.3 cm; Reflux: 0 ms Distal Thigh: 0.4 cm; Reflux: 0 ms At Knee: 0.4 cm; Reflux: 988 ms Proximal Calf: 0.3 cm; Reflux: 812 ms Mid Calf: 0.3 cm; Reflux: 0 ms Distal Calf: 0.3 cm; Reflux: 0 ms DUPLICATED MEDIAL GREAT SAPHENOUS VEIN: Diameter: None imaged Reflux: NA DUPLICATED LATERAL GREAT SAPHENOUS VEIN: Diameter: 0.5 cm. Reflux: NA SMALL SAPHENOUS VEIN: Saphenopopliteal Junction: 0.2 cm; Reflux: 0 ms Proximal: 0.2 cm; Reflux: 0 ms Distal: 0.3 cm; Reflux: 0 ms VEIN OF GIACOMINI: Size: NA Reflux: NA PERFORATORS: Location: Proximal thigh and midcalf. Size: 0.3 cm. Reflux: NA VARICOSITIES: Location: Proximal thigh and at the knee. Size: 0.3 cm. Reflux: NA 3. DEEP VENOUS ULTRASOUND OF THE LEFT LOWER EXTREMITY: Common Femoral Vein: Compressible, normal respiratory variation and augmented flow. Femoral Vein: Compressible, normal color flow and augmentation. Popliteal Vein: Compressible, normal augmentation. Deep Reflux: There is no evidence of reflux in the deep system in either the common femoral vein, superficial femoral or the popliteal vein. There is no evidence of a King's cyst. 4. SUPERFICIAL ULTRASOUND WITH DOPPLER OF LEFT LOWER EXTREMITY: GREAT SAPHENOUS VEIN: Saphenofemoral Junction: 0.7 cm; Reflux: 0 ms Proximal Thigh: 0.4 cm; Reflux: 1424 ms Mid Thigh: 0.5 cm; Reflux: 1272 ms Distal Thigh: 0.5 cm; Reflux: 2584 ms At Knee: 0.5 cm; Reflux: 0 ms Proximal Calf: 0.3 cm; Reflux: 0 ms Mid Calf: 0.3 cm; Reflux: 0 ms Distal Calf: 0.3 cm; Reflux: 0 ms DUPLICATED MEDIAL GREAT SAPHENOUS VEIN: Diameter: None imaged Reflux: NA DUPLICATED LATERAL GREAT SAPHENOUS VEIN: Diameter: None imaged. Reflux: NA SMALL SAPHENOUS VEIN: Saphenopopliteal Junction: 0.3 cm; Reflux: 0 ms Proximal: 0.3 cm; Reflux: 0 ms Distal: 0.3 cm; Reflux: 0 ms VEIN OF GIACOMINI: Size: NA Reflux: NA PERFORATORS: Location: Garzon saphenous vein mid calf. Size: 0.3 cm. Reflux: 1412 ms. VARICOSITIES: Location: Small saphenous vein mid segment. Great saphenous vein mid thigh and midcalf.. Size: 0.3 cm. Reflux: 2756 ms at the mid thigh. 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 US/US venous insuf bilat IMPRESSION: Right: Venous insufficiency, great saphenous vein at the knee and below the knee. Perforators and varices without reflux. 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 Varices with reflux in the mid thigh. Perforators with reflux in the mid calf. Electronically signed by: Rafal Reynolds MD 04/10/2025 02:58 PM EDT
--- OUTSIDE RECORDS SUMMARY | 2025-04-10 14:29 | XMS_ITS ---
Author Organization [facility] Address [address] [place] [address] Care Team Providers Care Home School Teacher Name Role Phone Amita Ruiz MD Primary Care Provider Jorje Last Jr, Arie Gibson REASON FOR VISIT Appointment Encounters Encounter Location Date Provider Diagnosis [facility] [address] [place] [address] 02/08/2025 Arie Last Jr Plan Of Treatment Next Appt Details Provider Name:Arie jordan Jr, 08/20/2025 09:40:00 AM, [address], [address], [place], [address], Progress Notes * RAJ SOUZAOB:1960 ( 64 yo F)Acc No.[id number]:02/08/2025 Patient:?TIFFANY SOUZA :1960???Age:64 Y???Sex:Female Address:[address] [place] [address], [address] * true * Date:? Generated for Printi al/Nu/eTransmitting on:?04/10/2025 02:29 PM EDT
--- OUTSIDE RECORDS SUMMARY | 2025-04-10 14:29 | XMS_ITS ---
Author Organization [facility] Address [address] [place] [address] Phone Care Team Providers Care Shredding Machine Tender Name Role Phone Amita Ruiz MD Primary Care Provider [phone] Active Problems Problem Noted Date Diagnosed Date COVID-19 12/01/2024 Acute hypoxemic respiratory failure due to COVID-19 ([facility] V24, [facility] V28) 12/01/2024 Malignant neoplasm of upper- outer quadrant of right breast in female, estrogen receptor positive ([facility] V24, [facility] V28) 11/09/2024 Cancer Staging:Pathologic:Stage IA(pT1c, pN0, cM0, G1, ER+, NE+, HER2-) - Signed by Radha Bourgeois MD on 11/09/2024 Iron deficiency anemia 11/07/2024 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
--- OUTSIDE RECORDS SUMMARY | 2025-04-10 14:29 | XMS_ITS ---
Author Organization [facility] Address [address] [place] [address] Care Team Providers Care Cryogenics Repairer Name Role Phone Amita Ruiz MD Primary Care Provider Jorje Last Jr, Arie Gibson REASON FOR VISIT pathology Encounters Encounter Location Date Provider Diagnosis [facility] [address] [place] [address] 11/04/2023 Arie Last Jr Plan Of Treatment Next Appt Details Provider Name:Arie jordan Jr, 08/20/2025 09:40:00 AM, [address], [address], [place], [address], Progress Notes * BEATA SOUZAELMAOB:1960 ( 63 yo F)Acc No.[id number]:11/04/2023 Patient:?LIBBY TIFFANY :1960???Age:63 Y???Sex:Female Address:[address] [place] [address], [address] * true * Date:? Generated for Printi al/Nu/eTransmitting on:?04/10/2025 02:29 PM EDT
--- OUTSIDE RECORDS SUMMARY | 2025-04-10 14:30 | XMS_ITS ---
Author Organization [facility] Address [address] [place] [address] Care Team Providers Care Last Code Striper Name Role Phone Amita Ruiz MD Primary Care Provider Arei Eduardo Jr Unavailable Allergies Allergen (clinical drug [...] Problem Status W/U Status Risk Notes Problem [id number] Anemia, unspecified type (D64.9) Active confirmed Vital Signs Blood pressure systolic 111 mm Hg 02/16/20 25 Blood pressure diastolic 111 mm Hg 025 Height 5 ft 1 in in 02/15/2025 Weight 250 lbs 02/15/2025 BMI 47.23 kg/m2 02/15/2025 Encounters Encounter Location Date Provider Diagnosis [facility] [address] [place] [address] 02/15/2025 Arie Last Jr Anemia, unspecified type [...] Provider Name:Arie jordan Jr, 08/20/2025 09:40:00 AM, [address] [place] [address] Drive, [address], [place], [address], Progress Notes * RAJ SOUZAOB:1960 ( 64 yo F)Acc No.[id number]:02/15/2025 Progress Notes Patient:?LIBBYBEATAY Provider:?Arie Last MD :1960???Age:64 Y???Sex:Female D ate:02/15/2025 Address:[address] [place], [place] [id number] Pcp:Amita Ruiz MD Subjective: * Chief Complaints: [...] testing prior to ablation for A-fib at [facility]. She has also had ultrasound imaging [...] MD Date:?0 02/15/2025 Generated for Janie melendez/Nu/eTpachecosmitting on:?04/10/2025 02:30 PM EDT History and Physical Notes * [...] testing prior to ablation for A-fib at [facility]. She has also had ultrasound imaging [...]
--- OUTSIDE RECORDS SUMMARY | 2025-04-10 14:30 | XMS_ITS | Clinical Summary ---
Author Organization [facility] Address [address] [place] [address] Phone Care Team Providers Care Tissue Coordinator Name Role Phone Amita Ruiz MD Primary Care Provider Allergies Active Allergy Reactions Criticality Noted Date [...] Acute hypoxemic respiratory failure due to COVID-19 ([facility] V24, [facility] V28) 12/01/2024 Malignant neoplasm of upper- outer quadrant of right breast in female, estrogen receptor positive ([facility] V24, [facility] V28) 11/09/2024 Cancer Staging:Pathologic:Stage IA(pT1c, pN0, cM0, G1, ER+, AR+, HER2-) - Signed by Radha Bourgeois MD on 11/09/2024 Iron deficiency anemia 11/07/2024 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 ([facility] V24) 11/07/2024 Depression with anxiety 11/07/2024 Arthritis 11/07/2024 A-fib ([facility] V24, [facility] V28) 11/07/2024 Hypothyroidism Resolved Problems Problem Noted Date Diagnosed Date Resolved Date Anemia 11/07/2024 11/07/2024 Encounters Date Type Department Care Team Description 02/15/2025 10:57 AM EDT - 02/15/2025 11:59 PM EDT Hospital Encounter [facility] [address] [place] [phone] Arabella King, MICHAEL Malignant neoplasm of upper-outer quadrant of right breast in female, estrogen receptor positive ([facility] V24, [facility] V28) (Primary Dx) Discharge Disposition: Home or Self Care 01/16/2025 8:56 AM EST - 01/16/2025 11:59 PM EST Hospital Encounter [facility] [address] [place] [phone] Arabella King, MICHAEL Malignant neoplasm of upper-outer quadrant of right breast in female, estrogen receptor positive ([facility] V24, [facility] V28) (Primary Dx) Discharge Disposition: Home or Self Care 01/16/2025 8:24 AM EST - 01/16/2025 11:59 PM EST Hospital Encounter [facility]cology [address] [place] [phone] Discharge Disposition: Home or Self Care 01/15/2025 8:25 AM EST - 01/15/2025 11:59 PM EST Hospital Encounter [facility] Oncology [address] [place] [phone] Discharge Disposition: Home or Self Care 01/12/2025 8:52 AM EST - 01/12/2025 11:59 PM EST Hospital Encounter [facility]cology [address] [place] [phone] Radha Bourgeois MD Malignant neoplasm of upper-outer quadrant of right breast in female, estrogen receptor positive ([facility] V24, [facility] V28) (Primary Dx) Discharge Disposition: Home or Self Care 01/12/2025 8:29 AM EST - 01/12/2025 11:59 PM EST Hospital Encounter [facility] [address] [place] [address] Discharge Disposition: Home or Self Care 01/11/2025 2:03 PM EST - 01/11/2025 11:59 PM EST Hospital Encounter [facility]cology [address] [place] [address] Discharge Disposition: Home or Self Care from Last 3 Months Surgical History Surgery Date Site/Laterality Comments COLONOSCOPY BREAST LUMPECTOMY 09/20/2024 Right PARTIAL HYSTERECTOMY THYROIDECTOMY CYSTOSCOPY Medical History Medical History Date Comments Cancer ([facility] V24, [facility] V28) Gout A-fib ([facility] V24, [facility] V28) Thyroid cancer ([facility] V24, [facility] V28) Sleep apnea Reflux esophagitis Family History [...] TREATMENT SUMMARY Routine 01/11/2025 2:38 PM EST from Last 3 Months Results * [...] [facility] RADIATION ONCOLOGY 01/11/2025 2:38 PM EST us Physician Radiation Oncology RADIATION ONCOLO GY ORDERABLES Final Result [facility] RADIATION ONCOLOGY from Last 3 Months Insurance [employer] Advance Directives * Full Code - Confirmed (Latest Code Status on File) Date Activated Date Inactivated Comments 12/01/2024 2:36 PM 12/07/2024 7:06 PM This code stat was ascertained in the following way: Code [...] currently active code status orders. Care Teams Tissue Coordinator Relationship Specialty Start Date End Date Amita Ruiz MD [address] [place] [address] PCP - General Internal Medicine 10/13/24
--- OUTSIDE RECORDS SUMMARY | 2025-04-10 14:30 | XMS_ITS | Patient Health Record ---
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) Active confirmed Vital Signs Blood pressure diastolic 111 mm Hg 02/15/2025 Height 5 ft 1 in in 02/15/2025 Blood pressure systolic 111 mm Hg 02/15/2025 Weight 250 lbs 02/15/2025 BMI 47.23 kg/m2 02/15/2025 Encounters Encounter Location Date Provider Diagnosis [facility] [address] [place] [phone] 02/15/2025 Arie Last Jr Anemia, unspecified type D64.9 [facility] [address] [place] [phone] 02/08/2025 Arie Last Jr Assessments Encounter Date [...] Provider Name:Arie jordan Jr, 08/20/2025 09:40:00 AM, [address] [place] [address], [address], [place], [address], Insurance Providers Payer Name Payer Address Payer Phone Subscriber Number Group Number Insured Name Patient Relationship to Insured Coverage Start Date Coverage End Date [facility] [address] [address] [place], [place] [id number] TIFFANY SOUZA Self - patient is the insured MEDICA[employer] OF [employer] [address] [place] [id number] TIFFANY SOUZA Self - patient is the [...]
== END 2025-04-10 13:25 | disposition home or self-care (01) ==
LOC: HO.US 13:24
PROVIDERS: PCP Internal Medicine; Visit Provider Surgery Vascular Surgery
DX: I83.12 Varicose veins of left lower extremity with inflammation (principal)
CPT/HCPCS: 93970

== ENCOUNTER → 2025-04-10 13:26 | Outpatient (BNV) | payer OTHER, SELFPAY | PROVIDERS: PCP Internal Medicine; Visit Provider Radiology Diagnostic Radiology | DX: I83.812 Varicose veins of left lower extremity with pain (principal); I87.2 Venous insufficiency (chronic) (peripheral) | CPT/HCPCS: 93970 ==

== ENCOUNTER 2025-04-12 13:20 | Outpatient (AMB) | payer OTHER, SELFPAY ==
[2025-04-12 13:51] VITALS: BMI 48.2
--- NOTE | 2025-04-12 13:51 | A.OFFVIS_ITS ---
Vital Signs 04/12/25 13:51 Height 5 ft 1 in Weight 255 lb BMI 48.2 Intake Visit Reasons: follow up s/p US 04/10/25 Intake Note: follow up US 04/10/25 . No complaints. Accompanied by: Spouse Allergies erythromycin base Allergy (Intermediate, Verified 04/12/25 13:59) Abdominal Pain lisinopril Allergy (Intermediate, Verified 04/12/25 13:59) Rash HPI HPI follow up s/p US 04/10/25: Details: The patient is a 64-year-old female presenting with swelling in both lower extremities, more prominently in the left leg than the right. She reports that both legs have been slightly swollen, but physical manipulation reveals the left leg experiences more significant pain and swelling. The swelling is partially attributed to medications, in addition to her documented history of venous insufficiency and lymphedema. She has a notable cardiac history, including atrial fibrillation, currently managed with anticoagulation medication (Xarelto), and she has been scheduled for a cardiac ablation soon. Her medical history also includes chronic obstructive pulmonary disease (COPD), for which she has started attending pulmonary rehabilitation sessions. There are indications of planning venous care interventions, notably a scheduled venous ablation, alongside her cardiac treatments, given her symptoms and previous discussions about the issue. [facility] Medical History (HFpEF) heart failure with preserved ejection fraction Arthritis HX: breast cancer SOB (shortness of breath) On anticoagulant therapy Invasive ductal carcinoma of right breast in female A-fib Hypothyroid Osteoporosis Urethral stenosis Depression with anxiety Thyroid cancer Acid reflux Kidney stone QAMAR (obstructive sleep apnea) Hypertension Knee pain, left Surgical History History of lumpectomy of right breast (09/20/24) Hx of dilation of urethra Hx of cystoscopy H/O colonoscopy History of partial hysterectomy History of thyroidectomy Family History Mother Lung cancer Father HTN (hypertension) Melanoma Social History Household Members: Spouse Housing: House Are you a primary medicare sales executive to a significant other at home: No Do you presently have visiting nurse or other home services: No Alcohol intake: current Alcohol intake frequency: does not drink Patient Tobacco Use Status: Never used Tobacco e-Cigarette/Vaping Use: Never Used service: No Current occupational status: unemployed Current occupation: right handed Cognitive needs: No Hearing needs: No Vision needs: Yes Female Reproductive History Menstrual Age of Menarche: 13 Review of Systems Const Reports as per HPI ENT Reports no additional complaints Card Denies chest pain, Denies chest pain at rest and Denies chest pain with activity Resp Denies chest congestion and Denies cough GI Reports no additional complaints Musc Details: pain over varicosities, aching of lower extremities, swelling, cramping, heaviness and tiredness, itching Denies abnormal gait Skin/Breast Reports pruritus and Denies wounds Neuro Reports no additional complaints and Denies abnormal gait Psych Denies no additional complaints Physical Exam Vital Signs: BMI result Body Mass Index 48.2 Const General: cooperative, healthy appearing and comfortable Orientation/consciousness: oriented to person, oriented to place and oriented to time Neck Carotids: no bruits Chest Chest palpation & inspection: normal inspection of the chest and normal palpation of entire chest wall Resp Effort & Inspection: normal respiratory effort and able to speak in complete sentences Cardio Rate: regular rate Heart sounds: S1 normal heart sound present and S2 normal heart sound present Peripheral pulses: Peripheral pulses 2+ throughout GI Inspection: Yes normal to inspection Skin Other: +2 edema, large rope-like varicosities greater than 4 mm CEAP Classification C4 - skin color changes Ep - Etiology Primary As - superficial veins P - reflux General skin exam: dry skin Neuro General: oriented to person, oriented to place and oriented to time Extrem Right lower extremity: full ROM, normal capillary refill and edema Left lower extremity: full ROM, normal capillary refill and edema Psych Mental Status: mental status grossly normal Results Reviewed Results Reviewed: Brief summary of venous insufficiency testing is as follows: right great saphenous vein: Positive right small saphenous vein: negative right accessory vein: none present left great saphenous vein: Positive left small saphenous vein: negative left accessory vein: none present Please note there is no evidence of any venous aneurysms or significant tortuosity Assessment & Plan Assessment & Plan (1) Varicose veins of left lower extremity with inflammation: Code(s): I83.12 - Varicose veins of left lower extremity with inflammation Category: Medical Plan: This patient has varicose veins with inflammation. They continue to be a source of discomfort for the patient. The patient has tried conservative treatment with compression, leg elevation and exercise program for over 3 months time. They have been compliant with all treatment. This has provided minimal relief for the patient. I do not anticipate this course of treatment will alter the underlying etiology. The patient has been scheduled for lower extremity venous treatment inclusive of --- left great saphenous vein Cyanoacralate ablation. Risks, benefits, and complications of this procedure has been discussed in detail with the patient including but not limited to bleeding, infection, and the development of a DVT. The patient has demonstrated a clear understanding and has consented. We will schedule the patient as soon as possible. Thank you for allowing us to participate in this patient's care. If there are any questions or concerns please do not hesitate to contact us. Coding Level of Care Code Est Pt Level 4 (70266) Diagnoses Varicose veins of left lower extremity with inflammation I83.12
--- OUTSIDE RECORDS SUMMARY | 2025-04-12 13:57 | XMS_ITS ---
Author Organization [facility] Address [address] [place] [address] Care Team Providers Care Respiratory Therapist Name Role Phone Amita Ruiz MD [...] Problem Status W/U Status Risk Notes Problem [id number] Anemia, unspecified type (D64.9) Active confirmed Vital Signs Blood pressure systolic 111 mm Hg 02/16/20 25 Blood pressure diastolic 111 mm Hg 025 Height 5 ft 1 in in 02/15/2025 Weight 250 lbs 02/15/2025 BMI 47.23 kg/m2 02/15/2025 Encounters Encounter Location Date Provider Diagnosis [facility] [address] [place] [address] 02/15/2025 Arie Last Jr Anemia, unspecified type [...] Name:Arie jordan Jr, 08/20/2025 09:40:00 AM, [address] [place] [address] Drive, [address], [place], [address], Progress Notes * RAJ SOUZAOB:1960 ( 64 yo F)Acc No.[id number]:02/15/2025 Progress Notes Patient:?LIBBYBEATAY Provider:?Arie Last MD :1960???Age:64 Y???Sex:Female D ate:02/15/2025 Address:[address] [place], [place] [id number] Pcp:Amita Ruiz MD Subjective: * Chief Complaints: [...] testing prior to ablation for A-fib at [facility]. She has also had ultrasound imaging [...] MD Date:?0 02/15/2025 Generated for Janie melendez/Nu/eTpachecosmitting on:?04/12/2025 01:57 PM EDT History and Physical Notes * [...] testing prior to ablation for A-fib at [facility]. She has also had ultrasound imaging [...]
--- OUTSIDE RECORDS SUMMARY | 2025-04-12 13:57 | XMS_ITS ---
Author Organization [facility] Address [address] [place] [address] Care Team Providers Care Cafeteria Manager Name Role Phone Amita Ruiz MD Primary Care Provider Jorje Last Jr, Arie Gibson REASON FOR VISIT pathology Encounters Encounter Location Date Provider Diagnosis [facility] [address] [place] [address] 11/04/2023 Arie Last Jr Plan Of Treatment Next Appt Details Provider Name:Arie jordan Jr, 08/20/2025 09:40:00 AM, [address], [address], [place], [address], Progress Notes * BEATA SOUZAELMAOB:1960 ( 63 yo F)Acc No.[id number]:11/04/2023 Patient:?LIBBY TIFFANY :1960???Age:63 Y???Sex:Female Address:[address] [place] [address], [address] * true * Date:? Generated for Printi al/Nu/eTransmitting on:?04/12/2025 01:57 PM EDT
--- OUTSIDE RECORDS SUMMARY | 2025-04-12 13:57 | XMS_ITS ---
Author Organization [facility] Address [address] [place] [address] Phone Care Team Providers Care Lead Php Developer Name Role Phone Amita Ruiz MD Primary Care Provider [phone] Active Problems Problem Noted Date Diagnosed Date COVID-19 12/01/2024 Acute hypoxemic respiratory failure due to COVID-19 ([facility] V24, [facility] V28) 12/01/2024 Malignant neoplasm of upper- outer quadrant of right breast in female, estrogen receptor positive ([facility] V24, [facility] V28) 11/09/2024 Cancer Staging:Pathologic:Stage IA(pT1c, pN0, cM0, G1, ER+, MA+, HER2-) - Signed by Radha Bourgeois MD on 11/09/2024 Iron deficiency anemia 11/07/2024 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
--- OUTSIDE RECORDS SUMMARY | 2025-04-12 13:57 | XMS_ITS | Patient Health Record ---
Author Organization [facility] Address [address] [place] [address] Care Team Providers Care Metal Mover Name Role Phone Amita Ruiz MD Primary [...] Problem Status W/U Status Risk Notes Problem 043429934 Colon cancer screening (Z12.11) Active confirmed Problem 539538931 Anemia, unspecified type (D64.9) Active confirmed Problem 46742066 Irritable bowel syndrome with both constipation and diarrhea (K58.2) Active confirmed Vital Signs Blood pressure diastolic 111 mm Hg 02/15/2025 Height 5 ft 1 in in 02/15/2025 Blood pressure systolic 111 mm Hg 02/15/2025 Weight 250 lbs 02/15/2025 BMI 47.23 kg/m2 02/15/2025 Encounters Encounter Location Date Provider Diagnosis [facility] [address] [place] [address] 02/15/2025 Arie Last Jr Anemia, unspecified type D64.9 [facility] [address] [place] [address] 02/08/2025 Arie Last Jr Assessments Encounter Date [...] Provider Name:Arie jordan Jr, 08/20/2025 09:40:00 AM, [address] [place] [address], [address], [place], [address], Insurance Providers Payer Name Payer Address Payer Phone Subscriber Number Group Number Insured Name Patient Relationship to Insured Coverage Start Date Coverage End Date [facility] [address] [address] [place], [place] [id number] TIFFANY SOUZA Self - patient is the insured MEDICAID OF [employer] [address] [place] [id number] TIFFANY SOUZA Self - patient is the [...]
--- OUTSIDE RECORDS SUMMARY | 2025-04-12 13:57 | XMS_ITS | Clinical Summary ---
Author Organization [facility] Address [address] [place] [address] Phone Care Team Providers Care Washcloth Folder Name Role Phone Amita Ruiz MD Primary Care Provider [phone] Allergies Active Allergy Reactions Criticality Noted Date [...] Acute hypoxemic respiratory failure due to COVID-19 ([facility] V24, [facility] V28) 12/01/2024 Malignant neoplasm of upper- outer quadrant of right breast in female, estrogen receptor positive ([facility] V24, [facility] V28) 11/09/2024 Cancer Staging:Pathologic:Stage IA(pT1c, pN0, cM0, G1, ER+, SC+, HER2-) - Signed by Radha Bourgeois MD on 11/09/2024 Iron deficiency anemia 11/07/2024 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 [address] [place] [address] Arabella King, MICHAEL Malignant neoplasm of upper-outer quadrant of right breast in female, estrogen receptor positive ([facility] V24, [facility] V28) (Primary Dx) Discharge Disposition: Home or Self Care 01/16/2025 8:56 AM EST - 01/16/2025 11:59 PM EST Hospital Encounter [facility] [address] [place] [address] Arabella King, MICHAEL Malignant neoplasm of upper-outer quadrant of right breast in female, estrogen receptor positive ([facility] V24, [facility] V28) (Primary Dx) Discharge Disposition: Home or Self Care 01/16/2025 8:24 AM EST - 01/16/2025 11:59 PM EST Hospital Encounter [facility] [address] [place] [address] Discharge Disposition: Home or Self Care 01/15/2025 8:25 AM EST - 01/15/2025 11:59 PM EST Hospital Encounter [facility] [address] [place] [phone] Discharge Disposition: Home or Self Care from Last 3 Months Surgical History Surgery Date Site/Laterality Comments COLONOSCOPY BREAST LUMPECTOMY 09/20/2024 Right PARTIAL HYSTERECTOMY THYROIDECTOMY CYSTOSCOPY Medical History Medical History Date Comments Cancer ([facility] V24, [facility] V28) Gout A-fib ([facility] V24, [facility] V28) Thyroid cancer ([facility] V24, [facility] V28) Sleep apnea Reflux esophagitis Family [...] 2 2 Date Outcome GA Total Labor Labor//3rd Weight Sex Type Anes PTL Joan A1 [...] TREATMENT SUMMARY Routine 01/15/2025 8:49 AM EST from Last 3 Months Results [...] RADIATION ONCOLOGY from Last 3 Months Insurance [facility] Advance Directives * Full Code - Confirmed [...] currently active code status orders. Care Teams Washcloth Folder Relationship Specialty Start Date End Date Amita Ruiz MD [address] [place] [address] PCP - General Internal Medicine 10/13/24
--- OUTSIDE RECORDS SUMMARY | 2025-04-12 13:57 | XMS_ITS ---
Author Organization [facility] Address [address] [place] [address] Care Team Providers Care Product Assembler Name Role Phone Amita Ruiz MD Primary Care Provider Jorje Last Jr, Arie Gibson [phone] REASON FOR VISIT Appointment Encounters Encounter Location Date Provider Diagnosis [facility] [address] [place] [address] 02/08/2025 Arie Last Jr Plan Of Treatment Next Appt Details Provider Name:Arie jordan Jr, 08/20/2025 09:40:00 AM, [address], [address], [place], [address], Progress Notes * RAJ SOUZAOB:1960 ( 64 yo F)Acc No.[id number]:02/08/2025 Patient:?LIBBY TIFFANY :1960???Age:64 Y???Sex:Female Address:[address] [place] [address], [address] * true * Date:? Generated for Printi al/Nu/eTransmitting on:?04/12/2025 01:57 PM EDT
== END 2025-04-12 14:29 | disposition home or self-care (01) ==
LOC: HO.HVS 13:21
PROVIDERS: PCP Internal Medicine; Visit Provider Surgery Vascular Surgery
DX: I83.12 Varicose veins of left lower extremity with inflammation (principal)
CPT/HCPCS: 99214

== ENCOUNTER → 2025-04-12 13:20 | Outpatient (BNVA) | payer OTHER, SELFPAY | PROVIDERS: PCP Internal Medicine; Visit Provider Surgery Vascular Surgery | DX: I83.12 Varicose veins of left lower extremity with inflammation (principal); I48.91 Unspecified atrial fibrillation; Z79.01 Long term (current) use of anticoagulants | CPT/HCPCS: 99212 ==

== ENCOUNTER 2025-04-17 | Outpatient (REF) | payer OTHER, SELFPAY ==
--- OUTSIDE RECORDS SUMMARY | 2025-05-29 07:26 | XMS_ITS | Patient Health Record ---
Author Organization [facility] Address [address] [place] [phone] Care Team Providers Care Immigration Associate Name Role Phone Amita Ruiz MD Primary Care Provider Arie Eduardo Jr Unavailable [phone] Allergies Allergen (clinical drug ingredient) Drug/Non Drug [...] Problem Status W/U Status Risk Notes Problem [id number] Colon cancer screening (Z12.11) Active confirmed Problem [id number] Anemia, unspecified type (D64.9) Active confirmed Problem 53226122 Irritable bowel syndrome with both constipation and diarrhea (K58.2) Active confirmed Vital Signs Blood pressure diastolic 111 mm Hg 02/15/2025 Height 5 ft 1 in in 02/15/2025 Blood pressure systolic 111 mm Hg 02/15/2025 Weight 250 lbs 02/15/2025 BMI 47.23 kg/m2 02/15/2025 Encounters Encounter Location Date Provider Diagnosis [facility] [address] [place] [phone] 02/15/2025 Arie Last Jr Anemia, unspecified type D64.9 [facility] [address] [place] [phone] 02/08/2025 Arie Last Jr Assessments Encounter Date [...] Provider Name:Arie jordan Jr, 08/20/2025 09:40:00 AM, [address] [place] [address], [address], [place], [address], Insurance Providers Payer Name Payer Address Payer Phone Subscriber Number Group Number Insured Name Patient Relationship to Insured Coverage Start Date Coverage End Date [facility] [address] [address] [place], [place] [id number] TIFFANY SOUZA Self - patient is the insured MED[place]ID OF [place] [address] [place] [id number] TIFFANY SOUZA Self - patient is the [...]
--- OUTSIDE RECORDS SUMMARY | 2025-05-29 07:26 | XMS_ITS ---
Author Organization [facility] Address [address] [place] [address] Phone Care Team Providers Care Roof Promenade Tile Setter Name Role Phone Amita Ruiz MD Primary Care Provider [phone] Active Problems Problem Noted Date Diagnosed Date COVID-19 12/01/2024 Acute hypoxemic respiratory failure due to COVID-19 ([facility] V24, [facility] V28) 12/01/2024 Malignant neoplasm of upper- outer quadrant of right breast in female, estrogen receptor positive ([facility] V24, [facility] V28) 11/09/2024 Cancer Staging:Pathologic:Stage IA(pT1c, pN0, cM0, G1, ER+, GA+, HER2-) - Signed by Radha Bourgeois MD on 11/09/2024 Iron deficiency anemia 11/07/2024 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 ([facility] V24) 11/07/2024 Depression with anxiety 11/07/2024 Arthritis 11/07/2024 A-fib ([facility] V24, [facility] V28) 11/07/2024 Hypothyroidism Current Oncology Plans [...]
== END 2025-04-17 00:01 | disposition home or self-care (01) ==
LOC: CF
PROVIDERS: PCP Internal Medicine; Visit Provider Internal Medicine Pulmonary Disease
DX: G47.33 Obstructive sleep apnea (adult) (pediatric) (principal); I48.0 Paroxysmal atrial fibrillation; R06.01 Orthopnea; Z99.81 Dependence on supplemental oxygen
CPT/HCPCS: 94618; 99212

== ENCOUNTER 2025-04-17 13:48 | Outpatient (AMB) | payer OTHER, SELFPAY ==
[2025-04-17 14:18] VITALS: BP 126/64; PULSE 77; O2SAT 97; BMI 47.5
--- NOTE | 2025-04-17 14:18 | A.OFFVIS_ITS ---
Vital Signs 04/17/25 14:18 Height 5 ft 1 in Weight 251 lb 5.231 oz BMI 47.5 BP 126/64 Blood Pressure Location Lt brachial Position Sitting Pulse 77 Pulse Source Pulse Oximeter Pulse Oximetry (%) 97 Oxygen Delivery Method Nasal Cannula Oxygen Flow Rate 1.5 Intake Visit Reasons: Dyspnea Microbiology Coordinator Required: No Accompanied by: Spouse Allergies erythromycin base Allergy (Intermediate, Verified 04/17/25 14:19) Abdominal Pain lisinopril Allergy (Intermediate, Verified 04/17/25 14:19) Rash HPI HPI Dyspnea: Details: 63-year-old lady, nonsmoker, with underlying QAMAR on CPAP, paroxysmal AFib, and essentially otherwise normal cardiac workup referred for evaluation of pulmonary component dyspnea. Patient reports dyspnea on exertion after walking for several 100 yd. She does have family history of lung cancer in her mother who was not a smoker. Patient states that she previously has used albuterol MDI for possible mild asthma, however she does not remember it ever provide significant relief. Patient does have recent pulmonary function testing performed at [facility] showing moderate obstruction with no bronchodilator response and normal diffusion capacity which is inconsistent with COPD or emph ysema. After the last office visit patient was started on metolazone with improvement in fluid retention. She is using supplemental oxygen at 1-1/2-2 L. she is planned for AFib ablation in May of 2025. [facility] Medical History (HFpEF) heart failure with preserved ejection fraction Arthritis HX: breast cancer SOB (shortness of breath) On anticoagulant therapy Invasive ductal carcinoma of right breast in female A-fib Hypothyroid Osteoporosis Urethral stenosis Depression with anxiety Thyroid cancer Acid reflux Kidney stone QAMAR (obstructive sleep apnea) Hypertension Knee pain, left Surgical History History of lumpectomy of right breast (09/20/24) Hx of dilation of urethra Hx of cystoscopy H/O colonoscopy History of partial hysterectomy History of thyroidectomy Family History Mother Lung cancer Father HTN (hypertension) Melanoma Social History Household Members: Spouse Housing: House Are you a primary chiropractic care to a significant other at home: No Do you presently have visiting nurse or other home services: No Alcohol intake: current Alcohol intake frequency: does not drink Patient Tobacco Use Status: Never used Tobacco e-Cigarette/Vaping Use: Never Used service: No Current occupational status: unemployed Current occupation: right handed Cognitive needs: No Hearing needs: No Vision needs: Yes Female Reproductive History Menstrual Age of Menarche: 13 Review of Systems Const Denies malaise Eyes Denies blurry vision and Denies itchy eyes Card Reports dyspnea on exertion Resp Denies cough, Reports dyspnea on exertion and Denies wheezing Skin/Breast Denies rash Neuro Denies memory loss Psych Denies abnormal sleep pattern, Denies anxiety and Denies memory loss Maynor/Lymph Denies easy bruising Aller/Immun Denies itchy eyes, Denies seasonal rhinorrhea and Denies wheezing Physical Exam Vital Signs: Last Vital Signs Pulse 77 04/17/25 14:18 BP 126/64 04/17/25 14:18 Pulse Ox 97 04/17/25 14:18 Oxygen Delivery Method Nasal Cannula 04/17/25 14:18 Oxygen Flow Rate 1.5 04/17/25 14:18 BMI result Body Mass Index 47.5 Const General: no acute distress and alert Nutritional Appearance: obese Orientation/consciousness: Other orientation findings ( oriented) HEENT Head: Yes atraumatic Eyes General: appearance normal, both eyes and all related structures Sclerae: sclerae normal EOM: EOMs intact bilaterally Neck Neck: Yes supple Lymphatic: no lymphadenopathy noted Resp Effort & Inspection: normal respiratory effort and no use of accessory muscles Auscultation: clear to auscultation bilaterally Cardio Rate: regular rate Rhythm: regular rhythm Heart sounds: no gallops, no murmurs and no rubs Skin General skin exam: other ( warm) Extrem General: No clubbing, No cyanosis and Yes edema (1+ bilateral) Office Procedures 6 Minute Walk Time:: 14:35 SPO2 % at rest: 96 Pulse at rest: 64 SPO2 % during excercise: 91 Pulse during excercise: 76 SPO2 % after excercise: 96 Pulse after excercise: 70 Distance in yards walked: 146 Supplemental Oxygen: 1.5 l Performance Observations:: pt. states that she has trouble with her knees, she needs an ablation and also s/p covid. Pt. uses oxygen at home at 2 l, when going out she uses 1.5 l so the oxygen will last. Pt. walked at her own pace, oxygen dropped to 91% 36516 - 6 Minute Walk Assessment & Plan Assessment & Plan (1) Supplemental oxygen dependent: Code(s): Z99.81 - Dependence on supplemental oxygen Category: Medical Plan: 6 minute walk test performed. Patient continues to require supplemental oxygen at 1.5 L continuous flow to maintain normal oximetry with exertion. (2) Orthopnea: Code(s): R06.01 - Orthopnea Category: Medical Plan: Improved control after addition of metolazone to torsemide. Continue current regimen. Orders: Orders AMB 6 minute walk Today G47.33 - Obstructive sleep apnea (adult) (pediatric), I48.0 - Paroxysmal atrial fibrillation Coding Level of Care Code Est Pt Level 4 (53048) Diagnoses Supplemental oxygen dependent Z99.81 Orthopnea R06.01 CPT Codes Coding ([id number])
[2025-04-17 14:59] VITALS: PULSE 64; O2SAT 96
--- OUTSIDE RECORDS SUMMARY | 2025-04-17 15:05 | XMS_ITS ---
Author Organization [facility] Address [address] [place] [address] Care Team Providers Care Press Shop Supervisor Name Role Phone Amita Ruiz MD [...] Problem Status W/U Status Risk Notes Problem [id number] Anemia, unspecified type (D64.9) Active confirmed Vital Signs Blood pressure systolic 111 mm Hg 02/16/20 25 Blood pressure diastolic 111 mm Hg 025 Height 5 ft 1 in in 02/15/2025 Weight 250 lbs 02/15/2025 BMI 47.23 kg/m2 02/15/2025 Encounters Encounter Location Date Provider Diagnosis [facility] [address] [place] [address] 02/15/2025 Arie Last Jr Anemia, unspecified type [...] Provider Name:Arie jordan Jr, 08/20/2025 09:40:00 AM, [address] [place] [address] Drive, [address], [place], [address], Progress Notes * RAJ SOUZAOB:1960 ( 64 yo F)Acc No.[id number]:02/15/2025 Progress Notes Patient:?LIBBYBEATAY Provider:?Arie Last MD :1960???Age:64 Y???Sex:Female D ate:02/15/2025 Address:[address] [place], [place] [id number] Pcp:Amita Ruiz MD Subjective: * Chief Complaints: [...] testing prior to ablation for A-fib at [facility]. She has also had ultrasound imaging on [...] MD Date:?0 02/15/2025 Generated for Janie melendez/Nu/eTpachecosmitting on:?04/17/2025 03:04 PM EDT History and Physical Notes * [...] testing prior to ablation for A-fib at [facility]. She has also had ultrasound imaging on [...]
--- OUTSIDE RECORDS SUMMARY | 2025-04-17 15:05 | XMS_ITS | Clinical Summary ---
Author Organization [facility] Address [address] [place] [address] Phone Care Team Providers Care Mortar Mixer Operator Name Role Phone Amita Ruiz MD Primary Care Provider [phone] Allergies Active Allergy Reactions Criticality Noted Date [...] Acute hypoxemic respiratory failure due to COVID-19 ([facility] V24, [facility] V28) 12/01/2024 Malignant neoplasm of upper- outer quadrant of right breast in female, estrogen receptor positive (CMS/HCC V24, [facility] V28) 11/09/2024 Cancer Staging:Pathologic:Stage IA(pT1c, pN0, cM0, G1, ER+, NV+, HER2-) - Signed by Radha Bourgeois MD on 11/09/2024 Iron deficiency anemia 11/07/2024 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 ([facility] V24) 11/07/2024 Depression with anxiety 11/07/2024 Arthritis 11/07/2024 A-fib ([facility] V24, [facility] V28) 11/07/2024 Hypothyroidism Resolved Problems Problem Noted Date Diagnosed Date Resolved Date Anemia 11/07/2024 11/07/2024 Encounters Date Type Department Care Team Description 02/15/2025 10:57 AM EDT - 02/15/2025 11:59 PM EDT Hospital Encounter [facility] [address] [place] [address] Arabella King NP Malignant neoplasm of upper-outer quadrant of right breast in female, estrogen receptor positive ([facility] V24, [facility] V28) (Primary Dx) Discharge Disposition: Home or Self Care from Last 3 Months Surgical History Surgery Date Site/Laterality Comments COLONOSCOPY BREAST LUMPECTOMY 09/20/2024 Right PARTIAL HYSTERECTOMY THYROIDECTOMY CYSTOSCOPY Medical History Medical History Date Comments Cancer ([facility] V24, [facility] V28) Gout A-fib ([facility] V24, [facility] V28) Thyroid cancer ([facility] V24, [facility] V28) Sleep apnea Reflux esophagitis Family History [...] on patient's age to complete this topic Insurance [employer] Advance Directives * Full Code [...] currently active code status orders. Care Teams Mortar Mixer Operator Relationship Specialty Start Date End Date Amita Ruiz MD [address] [place] [address] PCP - General Internal Medicine 10/13/24
--- OUTSIDE RECORDS SUMMARY | 2025-04-17 15:05 | XMS_ITS ---
Author Organization [facility] Address [address] [place] [address] Care Team Providers Care Tile Grinder Name Role Phone Amita Ruiz MD Primary Care Provider Jorje Last Jr, Arie Gibson [phone] REASON FOR VISIT pathology Encounters Encounter Location Date Provider Diagnosis [facility] [address] [place] [address] 11/04/2023 Arie Last Jr Plan Of Treatment Next Appt Details Provider Name:Arie jordan Jr, 08/20/2025 09:40:00 AM, [address], [address], [place], [address], Progress Notes * BEATA SOUZAELMAOB:1960 ( 63 yo F)Acc No.[id number]:11/04/2023 Patient:?LIBBY TIFFANY :1960???Age:63 Y???Sex:Female Address:[address] [place] [address], [address] * true * Date:? Generated for Printi al/Nu/eTransmitting on:?04/17/2025 03:04 PM EDT
--- OUTSIDE RECORDS SUMMARY | 2025-04-17 15:05 | XMS_ITS ---
Author Organization [facility] Address [address] [place] [address] Phone Care Team Providers Care Acute Care Certified Nursing Assistant Name Role Phone Amita Ruiz MD Primary Care Provider [phone] Active Problems Problem Noted Date Diagnosed Date COVID-19 12/01/2024 Acute hypoxemic respiratory failure due to COVID-19 ([facility] V24, [facility] V28) 12/01/2024 Malignant neoplasm of upper- outer quadrant of right breast in female, estrogen receptor positive ([facility] V24, [facility] V28) 11/09/2024 Cancer Staging:Pathologic:Stage IA(pT1c, pN0, cM0, G1, ER+, OR+, HER2-) - Signed by Radha Bourgeois MD on 11/09/2024 Iron deficiency anemia 11/07/2024 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 ([facility] V24) 11/07/2024 Depression with anxiety 11/07/2024 Arthritis 11/07/2024 A-fib ([facility] V24, [facility] V28) 11/07/2024 Hypothyroidism Current Oncology Plans No [...]
--- OUTSIDE RECORDS SUMMARY | 2025-04-17 15:05 | XMS_ITS ---
Author Organization [facility] Address [address] [place] [address] Care Team Providers Care Infrastructure Director Name Role Phone Amita Ruiz MD Primary Care Provider Jorje Last Jr, Arie Gibson [phone] REASON FOR VISIT Appointment Encounters Encounter Location Date Provider Diagnosis [facility] [address] [place] [address] 02/08/2025 Arie Last Jr Plan Of Treatment Next Appt Details Provider Name:Arie jordan Jr, 08/20/2025 09:40:00 AM, [address], [address], [place], [address], Progress Notes * RAJ SOUZAOB:1960 ( 64 yo F)Acc No.[id number]:02/08/2025 Patient:?TIFFANY SOUZA :1960???Age:64 Y???Sex:Female Address:[address] [place] [address], [address] * true * Date:? Generated for Printi al/Nu/eTransmitting on:?04/17/2025 03:04 PM EDT
--- OUTSIDE RECORDS SUMMARY | 2025-04-17 15:05 | XMS_ITS | Patient Health Record ---
Author Organization [facility] Address [address] [place] [address] Care Team Providers Care Laundry Machine Operator Name Role Phone Amita Ruiz MD Primary Care Provider Arie Eduardo Jr Unavailable [phone] Allergies Allergen (clinical drug ingredient) Drug/Non [...] Problem Status W/U Status Risk Notes Problem 880080742 Colon cancer screening (Z12.11) Active confirmed Problem 585581693 Anemia, unspecified type (D64.9) Active confirmed Problem 15382115 Irritable bowel syndrome with both constipation and diarrhea (K58.2) Active confirmed Vital Signs Blood pressure diastolic 111 mm Hg 02/15/2025 Height 5 ft 1 in in 02/15/2025 Blood pressure systolic 111 mm Hg 02/15/2025 Weight 250 lbs 02/15/2025 BMI 47.23 kg/m2 02/15/2025 Encounters Encounter Location Date Provider Diagnosis [facility] [address] [place] [address] 02/15/2025 Arie Last Jr Anemia, unspecified type D64.9 [facility] [address] [place] [address] 02/08/2025 Arie Last Jr Assessments Encounter Date [...] Provider Name:Arie jordan Jr, 08/20/2025 09:40:00 AM, [address] [place] [address], [address], [place], [address], Insurance Providers Payer Name Payer Address Payer Phone Subscriber Number Group Number Insured Name Patient Relationship to Insured Coverage Start Date Coverage End Date [facility] [address] [address] [place], [place] [id number] TIFFANY SOUZA Self - patient is the insured MEDICAID OF [place] [address] [place] [id number] TIFFANY SOUZA Self - patient is the [...]
== END 2025-04-17 14:50 | disposition home or self-care (01) ==
LOC: HO.HPS 13:48
PROVIDERS: PCP Internal Medicine; Visit Provider Internal Medicine Pulmonary Disease
DX: Z99.81 Dependence on supplemental oxygen (principal); R06.01 Orthopnea
CPT/HCPCS: 94618; 99214

== ENCOUNTER 2025-04-30 10:42 | Outpatient (AMB) | payer OTHER, SELFPAY ==
[2025-04-30 10:53] VITALS: BP 128/72; PULSE 83; TEMP 36.7; O2SAT 93; BMI 48.0
--- NOTE | 2025-04-30 10:53 | A.OFFPC_ITS ---
Vital Signs 04/30/25 10:53 04/30/25 10:53 Height 5 ft 1 in 5 ft 1 in Weight 254 lb 2 oz BMI 48.0 BP 128/72 Blood Pressure Location Lt brachial Position Sitting Pulse 83 Pulse Source Pulse Oximeter Temp 98.0 F Temp Source Oral Pulse Oximetry (%) 93 Oxygen Delivery Method Nasal Cannula Oxygen Flow Rate 1.5 Intake Visit Reasons: 2 months f/up Allergies erythromycin base Allergy (Intermediate, Verified 04/30/25 10:57) Abdominal Pain lisinopril Allergy (Intermediate, Verified 04/30/25 10:57) Rash Tobacco use date assessed: 04/30/25 Fall risk assessment: 2 + Falls in past year Last assessed Fall Risk: 04/30/25 Dental Screening Dental Screen Date: 04/30/25 Did you have a dental visit in the last 12 months?: Yes Did you have a dental problem in the last 6 months where you did not have access to dental care?: No Was dental information given to patient?: Patient has dentist HPI 2 months f/up HPI Details Patient presents for the follow-up of paroxysmal AFib hypothyroidism breast cancer hypoxia secondary to hypoventilation. She has difficulty using the CPAP machine and has been working with ride mechanic to adjust the mask. She has been using supplemental O2 24 hours a day. Patient has catheter ablation scheduled in May and is established with duck farmer. [facility] Medical History (HFpEF) heart failure with preserved ejection fraction Arthritis HX: breast cancer SOB (shortness of breath) On anticoagulant therapy Invasive ductal carcinoma of right breast in female A-fib Hypothyroid Osteoporosis Urethral stenosis Depression with anxiety Thyroid cancer Acid reflux Kidney stone QAMAR (obstructive sleep apnea) Hypertension Knee pain, left Surgical History History of lumpectomy of right breast (09/20/24) Hx of dilation of urethra Hx of cystoscopy H/O colonoscopy History of partial hysterectomy History of thyroidectomy Family History Mother Lung cancer Father HTN (hypertension) Melanoma Social History Household Members: Spouse Housing: House Are you a primary special needs caregiver to a significant other at home: No Do you presently have visiting nurse or other home services: No Alcohol intake: current Alcohol intake frequency: does not drink Patient Tobacco Use Status: Never used Tobacco e-Cigarette/Vaping Use: Never Used service: No Current occupational status: unemployed Current occupation: right handed Cognitive needs: No Hearing needs: No Vision needs: Yes Female Reproductive History Menstrual Age of Menarche: 13 Questionnaire PHQ-9 Over the last 2 weeks, how often have you been bothered by any of the following problems? 1. Little interest or pleasure in doing things: nearly every day 2. Feeling down, depressed, or hopeless: nearly every day 3. Trouble falling or staying asleep, or sleeping too much: several days 4. Feeling tired or having little energy: nearly every day 5. Poor appetite or overeating: several days 6. Feeling bad about yourself - or that you are a failure or have let yourself or your family down: several days 7. Trouble concentrating on things, such as reading the newspaper or watching television: several days 8. Moving or speaking so slowly that other people could have noticed. Or the opposite - being so fidgety or restless that you have been moving around a lot more than usual: not at all 9. Thoughts that you would be better off or of hurting yourself in some way: not at all Total score: 13 Depression Screening Interpretation: Negative Depression Screening Done: Yes 72581 - PHQ-9 Billing: Yes Source: Developed by Drs. Kenney Sweeney, Juana Oliva, Jaime Jiang and colleagues, with an educational petra from [employer]. Thrive Questionnaire Date Thrive assessed: 04/30/25 I am a: Patient What is your living situation today?: I have a steady place to live Within the past 12 months, did the food you bought not last and you didn't have the money to get more?: Never true Within the past 12 months, did you worry whether your food would run out before you got money to buy more?: Never true Do you have trouble paying for medicines?: No Do you have trouble getting transportation to medical appointments?: No Do you have trouble paying your heating and electricity bill?: No Do you have trouble taking care of your child, family member or friend?: No Do you have trouble with day-to-day activities such as bathing, preparing meals, shopping, managing finances, etc.?: No Are you currently unemployed and looking for a job?: No Are you interested in more education?: No THRIVE Score: 0 AUDIT C Alcohol Use Questionnaire (AUDIT-C) 1. How often do you have a drink containing alcohol?: Never 3. How often do you have six or more drinks on one occasion?: Never Total Score: 0 DARLEEN-7 AMB Questionnaire DARLEEN-7 Date DARLEEN - 7 assessed: 04/30/25 Feeling nervous, anxious, or on edge: 1 = Several days Not being able to stop or control worryin = Several days Worrying too much about different things: 1 = Several days Trouble relaxin = Not at all Being so restless that it is hard to sit still: 0 = Not at all Becoming easily annoyed or irritable: 0 = Not at all Feeling afraid as if something awful might happen: 1 = Several days Total DARLEEN-7 score (0-4 normal; 5-9 mild; 10-14 moderate; 15-21 severe): 4 Source: Developed by Drs. Kenney Sweeney, Juana Oliva, Jaime Jiang and colleagues, with an educational petra from [employer]. Review of Systems Const All systems reviewed & are unremarkable except as noted in HPI and below Eyes Reports no additional complaints ENT Reports no additional complaints Card Reports no additional complaints Resp Reports no additional complaints GI Reports no additional complaints Reports no additional complaints Physical exam (Primary Care) Vital Signs: Last Vital Signs Temp 98.0 F 04/30/25 10:53 Pulse 83 04/30/25 10:53 BP 128/72 04/30/25 10:53 Pulse Ox 93 04/30/25 10:53 Oxygen Delivery Method Nasal Cannula 04/30/25 10:53 Oxygen Flow Rate 1.5 04/30/25 10:53 BMI result Body Mass Index 48.0 Tobacco/Smoking Status: Tobacco use Status Tobacco use date assessed 04/30/25 04/30/25 11:00 Patient Tobacco Use Status Never used Tobacco 04/30/25 11:00 e-Cigarette/Vaping Use Never Used 04/30/25 11:00 PHQ-9: PHQ-9 Score PHQ-9: Total score 13 04/30/25 12:00 Depression Screening Interpretation: Negative Thrive Assessment: Date of Thrive Assessment Date Thrive assessed 04/30/25 04/30/25 11:00 Const General: no acute distress HENMT Ears: hearing grossly normal bilaterally Eyes General: appearance normal, both eyes and all related structures Neck Neck: Yes supple Resp Effort & Inspection: normal respiratory effort Auscultation: diminished lung sounds Cardio Rhythm: regular rhythm Heart sounds: S1 normal heart sound present and S2 normal heart sound present GI Inspection: Yes normal to inspection Palpation (GI): Soft to palpation Percussion: Yes normal to percussion Auscultation: normal bowel sounds Extrem Other: 2+ pitting edema bilaterally Coding Level of Care Code Est Pt Level 4 (59215) Complex EM visit Add On G2211 Diagnoses Hypoventilation associated with obesity E66.2 Hyperglycemia R73.9 Invasive ductal carcinoma of right breast in female C50.911 Peripheral edema R60.0 Paroxysmal atrial fibrillation I48.0 Atrial fibrillation type: paroxysmal Hypothyroid E03.9 Additional Codes PHQ-9 - 24414 - PHQ-9 Billing: Yes ([id number]) Assessment & Plan Assessment & Plan (1) Hypoventilation associated with obesity: Comment: Noncompliant with CPAP, referred to sleep Medicine Code(s): E66.2 - Morbid (severe) obesity with alveolar hypoventilation Category: Medical Plan: Follow-up with pulmonology and sleep Medicine (2) Hyperglycemia: Code(s): R73.9 - Hyperglycemia, unspecified Category: Medical Plan: Check A1c today ADA diet increase physical activity weight loss discussed with the patient (3) Invasive ductal carcinoma of right breast in female: Comment: 08/2024 s/p lumpectomy and radiation at [facility] Code(s): C50.911 - Malignant neoplasm of unspecified site of right female breast Category: Medical Plan: Continue letrozole follow-up with Oncology (4) Peripheral edema: Code(s): R60.0 - Localized edema Category: Medical Plan: Continue diuretics check comprehensive panel today (5) A-fib: Comment: Scheduled for catheter ablation in May Code(s): I48.91 - Unspecified atrial fibrillation Category: Medical Qualifiers: Atrial fibrillation type: paroxysmal Qualified Code(s): I48.0 - Paroxysmal atrial fibrillation Plan: Rhythm controlled on amiodarone and anticoagulated on Xarelto (6) Hypothyroid: Comment: Status post thyroidectomy for thyroid CA, f/u [place] [facility] 6MTHS Code(s): E03.9 - Hypothyroidism, unspecified Category: Medical Plan: Established with imaging services director in [place]. Patient is borderline high TSH level Orders: Orders Hemoglobin A1c Today E66.2 - Morbid (severe) obesity with alveolar hypoventilation, R73.9 - Hyperglycemia, unspecified IRON PROFILE Today E66.2 - Morbid (severe) obesity with alveolar hypoventilation, R73.9 - Hyperglycemia, unspecified Comprehensive [place]. Panel Fast Today E66.2 - Morbid (severe) obesity with alveolar hypoventilation, R73.9 - Hyperglycemia, unspecified Complete Blood Count Auto Diff Today E66.2 - Morbid (severe) obesity with alveolar hypoventilation, R73.9 - Hyperglycemia, unspecified
--- OUTSIDE RECORDS SUMMARY | 2025-04-30 11:48 | XMS_ITS ---
Author Organization [facility] Address [address] [place] [address] Care Team Providers Care Financial Controller Name Role Phone Amita Ruiz MD Primary Care Provider Jorje Last Jr, Arie Gibson [phone] REASON FOR VISIT Appointment Encounters Encounter Location Date Provider Diagnosis [facility] [address] [place] [address] 02/08/2025 Arie Last Jr Plan Of Treatment Next Appt Details Provider Name:Arie jordan Jr, 08/20/2025 09:40:00 AM, [address], [address], [place], [address], Progress Notes * BEATA SOUZAELMAOB:1960 ( 64 yo F)Acc No.[id number]:02/08/2025 Patient:?LIBBY TIFFANY :1960???Age:64 Y???Sex:Female Address:[address] [place] [address], [address] * true * Date:? Generated for Printi al/Nu/eTransmitting on:?04/30/2025 11:47 AM EDT
== END 2025-04-30 12:01 | disposition home or self-care (01) ==
LOC: HO.HMCC 10:42
PROVIDERS: PCP Internal Medicine; Visit Provider Internal Medicine
DX: I48.0 Paroxysmal atrial fibrillation (principal); E66.2 Morbid (severe) obesity with alveolar hypoventilation; C50.911 Malignant neoplasm of unspecified site of right female breast; Z68.42 Body mass index [BMI] 45.0-49.9, adult; R73.9 Hyperglycemia, unspecified; R60.0 Localized edema; E03.9 Hypothyroidism, unspecified

== ENCOUNTER → 2025-04-30 10:42 | Outpatient (BNVA) | payer OTHER, SELFPAY | PROVIDERS: PCP Internal Medicine; Visit Provider Internal Medicine | DX: I48.0 Paroxysmal atrial fibrillation (principal); E03.9 Hypothyroidism, unspecified; R09.02 Hypoxemia; E66.2 Morbid (severe) obesity with alveolar hypoventilation; R73.9 Hyperglycemia, unspecified; C50.911 Malignant neoplasm of unspecified site of right female breast; R60.0 Localized edema; Z68.42 Body mass index [BMI] 45.0-49.9, adult; Z99.89 Dependence on other enabling machines and devices | CPT/HCPCS: 96127; 99212 ==

== ENCOUNTER 2025-05-01 10:50 | Outpatient (REF) | payer OTHER, SELFPAY ==
--- OUTSIDE RECORDS SUMMARY | 2025-05-01 12:29 | XMS_ITS ---
Author Organization [facility] Address [address] [place] [address] Care Team Providers Care Ladies' Hat Trimmer Name Role Phone Amita Ruiz MD Primary Care Provider Jorje Last Jr, Arie Gibson [phone] REASON FOR VISIT Appointment Encounters Encounter Location Date Provider Diagnosis [facility] [address] [place] [address] 02/08/2025 Arie Last Jr Plan Of Treatment Next Appt Details Provider Name:Arie jordan Jr, 08/20/2025 09:40:00 AM, [address], [address], [place], [address], Progress Notes * BEATA SOUZAELMAOB:1960 ( 64 yo F)Acc No.[id number]:02/08/2025 Patient:?LIBBY TIFFANY :1960???Age:64 Y???Sex:Female Address:[address] [place] [address], [address] * true * Date:? Generated for Printi al/Nu/eTransmitting on:?05/01/2025 12:29 PM EDT
[2025-05-01 13:11] LABS: MANUAL DIFF FLAG NO
[2025-05-01 13:34] LABS: Basophils Absolute Auto 0.1 X10*3/uL (0.0-0.2); Basophils Percent Auto 0.5 % (0-2); Eosinophils Absolute Auto 0.3 X10*3/uL (0.0-0.4); Eosinophils Percent Auto 2.7 % (0-4); Hematocrit 34.6 % (37.0-47.0); Hemoglobin 10.2 g/dl (12.0-16.0); Imm Gran Pct Auto 0.9 % (0.0-0.4); Lymphocytes Absolute Auto 1.5 X10*3/uL (1.2-4.9); Lymphocytes Percent Auto 13.6 % (20-40); Mean Corpuscular HGB Conc 29.5 g/dl (31.0-35.0); Mean Corpuscular Hemoglobin 28.9 pg (27.0-33.0); Mean Platelet Volume 10.2 fL (9.4-12.3); Monocytes Absolute Auto 0.6 X10*3/uL (0.1-1.2); Monocytes Percent Auto 5.5 % (2-11); NRBC Pct Auto 0.2 /100WBC (0.0-0.2); Neutrophils Absolute Auto 8.5 x10*3/uL (2.0-8.3); Neutrophils Percent Auto 76.8 % (45-73); Platelet Count 262 X10*3/uL (160-400); Red Blood Count 3.53 X10*6/uL (4.20-5.50); Red Cell Distribution Width 15.9 % (11.0-16.0); White Blood Count 11.1 X10*3/uL (4.8-10.8)
[2025-05-01 13:56] LABS: Estimated Average Glucose 131 mg/dL; Hemoglobin A1C 120.2968 umol/L; Hemoglobin A1c % 6.2 % (<6.0)
[2025-05-01 14:10] LABS: Alanine Aminotransferase 15 U/L (0-31); Alkaline Phosphatase 77 U/L (39-117); Anion Gap 14 (12-20); Aspartate Amino Transferase 21 U/L (5-31); Bilirubin Total 0.4 mg/dL (0.0-1.0); Blood Urea Nitrogen 26 mg/dL (9-16); Calcium 9.9 mg/dL (8.4-10.2); Carbon Dioxide 45 mmol/L (22-29); Chloride 87 mmol/L (96-108); Estimated Glomerular Filt Rate 52; Glucose Fasting 169 mg/dL (60-99); Iron 49 mcg/dL (30-160); Percent Iron Saturation 12 % (15-50); Potassium 3.4 mmol/L (3.3-5.1); Sodium 143 mmol/L (135-145); Total Iron Binding Capacity 408 mcg/dL (228-428); Total Protein 6.5 g/dL (6.5-8.0); Unsaturated Iron Binding 359 ug/dL
[2025-05-01 14:24] LABS: TSH reflex Free T4 4.89 uIU/mL (0.32-4.0)
[2025-05-01 15:07] LABS: Free T4 (Free Thyroxine) 1.43 ng/dL (0.71-1.85)
== END 2025-05-01 10:51 | disposition home or self-care (01) ==
LOC: HO.HMGCLDS 10:50
PROVIDERS: PCP Internal Medicine; Visit Provider Internal Medicine
DX: I48.0 Paroxysmal atrial fibrillation (principal); M10.9 Gout, unspecified; R73.9 Hyperglycemia, unspecified; E66.2 Morbid (severe) obesity with alveolar hypoventilation
CPT/HCPCS: 36415; 80053; 83036; 83540; 84439; 84443; 84550; 85025

== ENCOUNTER 2025-05-18 10:22 | Outpatient (AMB) | payer OTHER, SELFPAY ==
--- OUTSIDE RECORDS SUMMARY | 2025-02-08 03:47 | XMS_ITS ---
Author Organization [facility] Address [address] [place] [address] Care Team Providers Care Medical Laboratory Technologist Name Role Phone Amita Ruiz MD Primary Care Provider Jorje Last Jr, Arie Gibson REASON FOR VISIT Appointment Encounters Encounter Location Date Provider Diagnosis [facility] [address] [place] [address] 02/08/2025 Arie Last Jr Plan Of Treatment Next Appt Details Provider Name:Arie jordan Jr, 08/20/2025 09:40:00 AM, [address], [address], [place], [address], Progress Notes * RAJ SOUAZOB:1960 ( 64 yo F)Acc No.[id number]:02/08/2025 Patient: Chad DARIEN TIFFANY :1960 A ge:64 Y S ex:Female Address:[address] [place] [address], [address] * true * Date: Generated for Printi ng/Faxing/eTransmitting on: 0 05/18/2025 10:39 AM EDT
--- NOTE | 2025-05-18 10:37 | MHC.OFFVIS ---
Intake Visit Reasons: Left Venaseal Accompanied by: Self / Same As Patient Allergies erythromycin base Allergy (Intermediate, Verified 05/18/25 10:37) Abdominal Pain lisinopril Allergy (Intermediate, Verified 05/18/25 10:37) Rash PFSH Medical History (HFpEF) heart failure with preserved ejection fraction Arthritis HX: breast cancer SOB (shortness of breath) On anticoagulant therapy Invasive ductal carcinoma of right breast in female A-fib Hypothyroid Osteoporosis Urethral stenosis Depression with anxiety Thyroid cancer Acid reflux Kidney stone QAMAR (obstructive sleep apnea) Hypertension Knee pain, left Surgical History History of lumpectomy of right breast (09/20/24) Hx of dilation of urethra Hx of cystoscopy H/O colonoscopy History of partial hysterectomy History of thyroidectomy Family History Mother Lung cancer Father HTN (hypertension) Melanoma Social History Household Members: Spouse Housing: House Are you a primary healthcare project manager to a significant other at home: No Do you presently have visiting nurse or other home services: No Alcohol intake: current Alcohol intake frequency: does not drink Patient Tobacco Use Status: Never used Tobacco e-Cigarette/Vaping Use: Never Used service: No Current occupational status: unemployed Current occupation: right handed Cognitive needs: No Hearing needs: No Vision needs: Yes Female Reproductive History Menstrual Age of Menarche: 13 Office Procedures Vascular Office Procedure Details Details: Diagnosis: Left Leg varicose veins with inflammation Procedure: Endovenous Ablation of the left Great Saphenous Vein with VenaSeal Closure System Anesthesia: Local infiltration 5 cc, Location Analyst: None Estimated Blood Loss: min Specimen: none Duplex ultrasound was used to map out the insufficient saphenous vein, and access was determined and marked on the overlying skin. The depth and diameter of the vein(s) to be treated was documented. The patient was placed supine on the procedure table and the leg was prepped and draped using sterile technique. Ultasound guidance was again used to localize the access site. 1% lidocaine was injected as a local anesthetic in the subcutaneous tissues at the target location in the GSV in the lower leg. Using ultrasound guidance, access was gained at this location with the 19 gauge thin walled access needle and followed by introduction of a short guidewire, location confirmed with ultrasound. A small, 3 mm incision was made at the access site to allow for introduction and placement of the 7 Fr x7cm introducer/dilator. The dilator and guidewire were removed. The 0.035 guidewire from the VenaSeal kit was then introduced and positioned at the saphenofemoral junction using ultrasound guidance. The 80 cm 7 Fr introducer sheath/dilator was positioned 5cm from the saphenofemoral junction. The guidewire and dilator were removed, and the remaining sheath was flushed with sterile saline, with the syringe remaining in place prior to the next steps. The cyanoacrylate adhesive was precisely primed into the 5 F delivery catheter and this catheter/syringe combination was attached within the dispenser gun. This assembly was introduced through the 7F sheath and positioned 5 cm caudal of the saphenofemoral junction under ultrasound guidance. The steps from the IFU were followed for dispensing amounts, locations and compression times, 2 aliquots proximally with 3 minutes of compression, and 1 aliquot every 3 cm distally with 30 sec of compression along the course of the vessel. Following the last injection and compression sequence, the catheter and introducer sheath were pulled out from the access site. Hemostasis was achieved with manual compression and an adhesive bandage was applied to the incision. Ultrasound confirmed complete coaptation and closure of the treated segments of the GSV, and the absence of any DVT at the saphenofemoral junction. Treatment time was approximately 4 minutes and the vein length treated was 15 cm. An accessory saphenous vein was identified as well. This was in a similar fashion accessed with micropuncture needle wire and subsequently 7 [place] 7 cm introducer/dilator. We then advanced the syringe/catheter combination with the attached dispenser gun. One aliquot was dispensed every 3 cm with 30 seconds of compression along the course of the vessel. Treatment time was approximately 1-1/2 minutes with a treatment length of 9 cm. The drapes were removed and the patient cleaned and prepared for discharge. Post op ultrasound check is scheduled for 48-72 hours and the patient was given written post-op instructions. 43136 - Endoven Ther Chem Adhes 1st 19988 - Chem Ashes, subsequent vein All charges added?: Procedure code (CPT) selection complete Assessment & Plan Assessment & Plan (1) Varicose veins of left lower extremity with inflammation: Comment: 05/18/2025 - left leg microphlebectomy Code(s): I83.12 - Varicose veins of left lower extremity with inflammation Category: Medical Plan: See op note Coding Level of Care Code Procedure Only Diagnoses Varicose veins of left lower extremity with inflammation I83.12 CPT Codes Details - Vascular 3: 40987 - Endoven Ther Chem Adhes 1st ([id number])
== END 2025-05-18 12:28 | disposition home or self-care (01) ==
LOC: HO.HVS 10:22
PROVIDERS: PCP Internal Medicine; Visit Provider Surgery Vascular Surgery
DX: I83.12 Varicose veins of left lower extremity with inflammation (principal)
CPT/HCPCS: 36482

== ENCOUNTER → 2025-05-18 10:22 | Outpatient (BNVA) | payer OTHER, SELFPAY | PROVIDERS: PCP Internal Medicine; Visit Provider Surgery Vascular Surgery | DX: I83.12 Varicose veins of left lower extremity with inflammation (principal); I50.30 Unspecified diastolic (congestive) heart failure; I48.91 Unspecified atrial fibrillation; E03.9 Hypothyroidism, unspecified; M81.0 Age-related osteoporosis without current pathological fracture; F32.A Depression, unspecified; F41.9 Anxiety disorder, unspecified; G47.33 Obstructive sleep apnea (adult) (pediatric); I10 Essential (primary) hypertension; Z79.01 Long term (current) use of anticoagulants; K21.9 Gastro-esophageal reflux disease without esophagitis | CPT/HCPCS: 36482; J2003 ==

== ENCOUNTER 2025-05-23 14:02 | Outpatient (AMB) | payer OTHER, SELFPAY ==
--- NOTE | 2025-05-23 14:21 | MHC.OFFVIS ---
Vital Signs 05/23/25 14:24 Height 5 ft 1 in Weight 255 lb 4.725 oz BMI 48.2 BP 130/56 L Blood Pressure Location Lt brachial Position Sitting Pulse 77 Pulse Source Monitor Intake Visit Reasons: 2 mth f/up per claude Intake Note: 2 mth f/up-per claude Web Production Designer Required: No Accompanied by: Self / Same As Patient Allergies erythromycin base Allergy (Intermediate, Verified 05/18/25 10:37) Abdominal Pain lisinopril Allergy (Intermediate, Verified 05/18/25 10:37) Rash Medication List - Last Reconciled 05/23/25 by Andrea Galarza MD allopurinol 300 mg PO DAILY amiodarone 100 mg PO DAILY cholecalciferol (vitamin D3) 50 mcg PO DAILY diltiazem HCl ER 120 mg PO DAILY empagliflozin (Jardiance) 10 mg PO DAILY letrozole 2.5 mg PO DAILY levothyroxine 250 mcg PO LESLIE@0630 levothyroxine 125 mcg MOTUWETHFRSA metolazone Frequency: Wednesday metoprolol tartrate 100 mg PO BID omeprazole 20 mg PO DAILY PRN potassium chloride ER 20 mEq PO BID rivaroxaban (Xarelto) 20 mg PO DAILY@1700 torsemide 40 mg (2 x 20 mg) PO QAM walker Standard wheeled walker HPI Comments Details: Pleasant 64 year female who is here for follow-up. She has background of paroxysmal atrial fibrillation which has been quite difficult to control and she is currently on amiodarone. She was getting some issues with amiodarone 200 mg dose with some hair loss and the dose was decreased to 100 mg previously by the nurse practitioner. She also has diastolic heart failure and has been on torsemide and metolazone. She was referred for AFib ablation and underwent assessment and due to her oxygen dependence since November 2024 (after COVID-19 infection) it was decided to do a CT chest on her to rule out any interstitial lung disease due to COVID and due to the fact that she is on amiodarone. CT chest has not shown any significant interstitial lung disease but did show by basilar atelectasis versus scarring. She had blood workup done in April which is showing contraction alkalosis and hypokalemia. She is taking metolazone 3 times a week along with torsemide. She also got diagnosed with venous reflux and underwent ablation on the left leg and will be getting an on the right side. She has been oxygen dependent since November 2024 and is saying that if she does not wear oxygen her saturations dropped to 85%. She feels somewhat lightheaded when this happens. She is saying with the oxygen she functions okay. No significant orthopnea or PND. She continues to have peripheral edema on examination. [facility] Medical History (Updated 05/23/25 @ 18:30 by Andrea Galarza MD) (HFpEF) heart failure with preserved ejection fraction Arthritis HX: breast cancer SOB (shortness of breath) On anticoagulant therapy Invasive ductal carcinoma of right breast in female A-fib Hypothyroid Osteoporosis Urethral stenosis Depression with anxiety Thyroid cancer Acid reflux Kidney stone QAMAR (obstructive sleep apnea) Hypertension Knee pain, left Surgical History History of lumpectomy of right breast (09/20/24) Hx of dilation of urethra Hx of cystoscopy H/O colonoscopy History of partial hysterectomy History of thyroidectomy Family History Mother Lung cancer Father HTN (hypertension) Melanoma Social History Household Members: Spouse Housing: House Are you a primary family day carer to a significant other at home: No Do you presently have visiting nurse or other home services: No Alcohol intake: current Alcohol intake frequency: does not drink Patient Tobacco Use Status: Never used Tobacco e-Cigarette/Vaping Use: Never Used service: No Current occupational status: unemployed Current occupation: right handed Cognitive needs: No Hearing needs: No Vision needs: Yes Female Reproductive History Menstrual Age of Menarche: 13 Review of Systems Const Denies chills, Denies fatigue, Denies fever(s), Denies frequent falls, Denies weakness, Denies weight gain and Denies weight loss ENT Denies dizziness Card Denies chest pain, Denies leg edema, Denies lightheadedness, Denies palpitations, Denies dyspnea and Denies dyspnea on exertion Resp Denies cough, Denies dyspnea and Denies dyspnea on exertion GI Denies hematochezia Musc Denies abnormal gait, Denies muscle weakness, Denies numbness, Denies radiating pain into limb and Denies tingling Neuro Denies abnormal gait, Denies dizziness, Denies frequent falls, Denies numbness, Denies tingling and Denies weakness Endo Denies fatigue and Denies palpitations Physical Exam Vital Signs: Last Vital Signs Pulse 77 05/23/25 14:24 BP 130/56 L 05/23/25 14:24 BMI result Body Mass Index 48.2 GENERAL APPEARANCE: in no acute distress, pleasant. On supplemental oxygen by nasal cannula. NECK: no carotid bruit, mild jugular venous distention. SKIN: no suspicious lesions, warm and dry. HEART: no murmurs, regular rate and rhythm. LUNGS: clear to auscultation bilaterally. ABDOMEN: soft, nontender. EXTREMITIES: + 2 edema up to knees. PERIPHERAL PULSES: equal. NEUROLOGIC: No gross deficits, AAO X 3 Office Procedures EKG Details: Sinus rhythm 77 beats per minute, normal axis, right bundle-branch block, QTC 588 milliseconds. [id number], Complete Results Reviewed Results Reviewed: CT chest done at [facility] on 03/23/2025 showing mild bilateral basal atelectasis or scarring. No evidence of interstitial lung disease noted. Assessment & Plan Assessment & Plan (1) A-fib: Comment: Scheduled for catheter ablation in May Code(s): I48.91 - Unspecified atrial fibrillation Category: Medical Qualifiers: Atrial fibrillation type: paroxysmal Qualified Code(s): I48.0 - Paroxysmal atrial fibrillation (2) (HFpEF) heart failure with preserved ejection fraction: [facility] 60-65%, nl RV, mild-mod MR Code(s): I50.30 - Unspecified diastolic (congestive) heart failure Category: Medical Qualifiers: Heart failure chronicity: acute Qualified Code(s): I50.31 - Acute diastolic (congestive) heart failure Plan [age] year female with paroxysmal atrial fibrillation and diastolic heart failure. She also had COVID-19 infection in November 2024. She has been oxygen dependent since November and CT has not shown any significant interstitial lung disease. Clinically she also does not appear to be in bed heart failure but continues to have low saturations when she takes a supplemental oxygen off. No reported PE as far as my chart review. She is currently on rivaroxaban for anticoagulation. Her EKG today is showing prolonged QT interval but on my manual measurement of the QT is not as prolonged as measured on the EKG. She also has avoid right bundle-branch block. I think she can continue amiodarone 100 mg along with diltiazem and metoprolol. She is undergoing atrial fibrillation ablation soon. She has bilateral lower extremity edema which is still quite severe. She has been diagnosed with venous insufficiency in his getting ablation performed on the right lower extremity. The left he has already done. I think her edema is multifactorial and is a combination of heart failure as well as in his insufficiency. I think her diuretics should be adjusted and I have advised her to cut the metolazone to 2 times a week and eventually we should bring her to 1 time per week. She has contraction alkalosis on labs recently. She is also on potassium supplements at this point. Post ablation she will get off the amiodarone and my plan is to get her off the diltiazem also. Thank you for allowing me to participate in the care of your patient. Please feel free to contact me if you have any questions. Medications: Discontinued amiodarone Discontinued Reason: Doctor's Order 50 mg PO DAILY Coding Level of Care Code Est Pt Level 4 (61146) Complex EM visit Add On G2211 Diagnoses Paroxysmal atrial fibrillation I48.0 Atrial fibrillation type: paroxysmal Acute heart failure with preserved ejection fraction I50.31 Heart failure chronicity: acute CPT Codes EKG - CPT: 93964-[id number], Complete ([id number])
[2025-05-23 14:24] VITALS: BP 130/56; PULSE 77; BMI 48.2
--- OUTSIDE RECORDS SUMMARY | 2025-05-23 16:46 | XMS_ITS ---
Author Organization [facility] Address [address] [place] [address] Phone Care Team Providers Care Body Bumper Name Role Phone Amita Ruiz MD Primary Care Provider [phone] Active Problems Problem Noted Date Diagnosed Date COVID-19 12/01/2024 Acute hypoxemic respiratory failure due to COVID-19 ([facility] V24, [facility] V28) 12/01/2024 Malignant neoplasm of upper- outer quadrant of right breast in female, estrogen receptor positive ([facility] V24, [facility] V28) 11/09/2024 Cancer Staging:Pathologic:Stage IA(pT1c, pN0, cM0, G1, ER+, WV+, HER2-) - Signed by Radha Bourgeois MD on 11/09/2024 Iron deficiency anemia 11/07/2024 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 ([facility] V24) 11/07/2024 Depression with anxiety 11/07/2024 Arthritis 11/07/2024 A-fib ([facility] V24, [facility] V28) 11/07/2024 Hypothyroidism Current Oncology Plans No [...]
== END 2025-05-23 15:12 | disposition home or self-care (01) ==
LOC: HO.HCS 14:02
PROVIDERS: PCP Internal Medicine; Visit Provider Internal Medicine Cardiovascular Disease
DX: I48.0 Paroxysmal atrial fibrillation (principal); I50.31 Acute diastolic (congestive) heart failure
CPT/HCPCS: 93010; 99214; G2211

== ENCOUNTER → 2025-05-23 14:02 | Outpatient (BNVA) | payer OTHER, SELFPAY | PROVIDERS: PCP Internal Medicine; Visit Provider Internal Medicine Cardiovascular Disease | DX: I48.0 Paroxysmal atrial fibrillation (principal); I50.31 Acute diastolic (congestive) heart failure | CPT/HCPCS: 93005; 99212 ==

== ENCOUNTER 2025-06-05 11:10 | Outpatient (AMB) | payer OTHER, SELFPAY ==
--- NOTE | 2025-06-05 11:11 | A.OFFVIS_ITS ---
Intake Visit Reasons: 2 week follow up L Venaseal 05/18/25 Intake Note: Patient presents for venaseal follow up. Patient states the incision is healed and that her left leg is feeling less tired. Accompanied by: Spouse Allergies erythromycin base Allergy (Intermediate, Verified 06/05/25 11:14) Abdominal Pain lisinopril Allergy (Intermediate, Verified 06/05/25 11:14) Rash HPI HPI 2 week follow up L Venaseal 05/18/25: Details: Patient reports she is doing extremely well. Overall left leg swelling has improved. She appears to be ambulating much better. At the current time she is undergoing pulmonary rehab and appears to be doing significantly better with that. In addition she recently cardiac ablation and has been taken off of amiodarone. In general is doing significantly better. Now for routine postprocedure follow-up. [facility] Medical History (HFpEF) heart failure with preserved ejection fraction Arthritis HX: breast cancer SOB (shortness of breath) On anticoagulant therapy Invasive ductal carcinoma of right breast in female A-fib Hypothyroid Osteoporosis Urethral stenosis Depression with anxiety Thyroid cancer Acid reflux Kidney stone QAMAR (obstructive sleep apnea) Hypertension Knee pain, left Surgical History History of lumpectomy of right breast (09/20/24) Hx of dilation of urethra Hx of cystoscopy H/O colonoscopy History of partial hysterectomy History of thyroidectomy Family History Mother Lung cancer Father HTN (hypertension) Melanoma Social History Household Members: Spouse Housing: House Are you a primary laboratory animal care veterinarian to a significant other at home: No Do you presently have visiting nurse or other home services: No Alcohol intake: current Alcohol intake frequency: does not drink Patient Tobacco Use Status: Never used Tobacco e-Cigarette/Vaping Use: Never Used service: No Current occupational status: unemployed Current occupation: right handed Cognitive needs: No Hearing needs: No Vision needs: Yes Female Reproductive History Menstrual Age of Menarche: 13 Review of Systems Const All systems reviewed & are unremarkable except as noted in HPI and below Reports no additional complaints ENT Reports Normal hearing present Card Denies chest pain, Denies chest pain at rest, Denies chest pain with activity and Denies pedal edema Resp Denies cough GI Denies abdominal pain Musc Denies abnormal gait, Denies muscle cramps and Denies radiating pain into limb Skin/Breast Denies skin ulcer and Denies wounds Neuro Reports Normal hearing present and Denies abnormal gait Psych Reports no additional complaints Physical Exam Const General: cooperative, healthy appearing and comfortable Orientation/consciousness: oriented to person, oriented to place and oriented to time HEENT Head: Yes normal to inspection Neck Neck: Yes normal visual inspection Carotids: no bruits Chest Chest palpation & inspection: normal inspection of the chest Resp Effort & Inspection: normal respiratory effort and able to speak in complete sentences Auscultation: clear to auscultation bilaterally, no crackles, no rales, no rhonchi and no wheezes Cardio Rate: regular rate Rhythm: regular rhythm Heart sounds: S1 normal heart sound present and S2 normal heart sound present Bruits: no carotid bruits Peripheral pulses: Peripheral pulses 2+ throughout GI Inspection: Yes normal to inspection Skin Wounds: no wounds Hair: normal Neuro General: oriented to person, oriented to place and oriented to time Cranial nerves: Yes CN's II-XII intact bilaterally and Yes Normal hearing present Cognition (Neuro): normal cognition Motor exam (neuro): 5/5 motor strength present throughout Extrem Other: venous exam: No significant superficial varicosities or spider telangiectasias, minimal edema General: No clubbing, No cyanosis and No edema Psych Appearance: grossly normal Mental Status: mental status grossly normal Speech and movement: Normal speech and movement present Assessment & Plan Assessment & Plan (1) Varicose veins of left lower extremity with inflammation: Comment: 05/18/2025 - left great saphenous vein Cyanoacralate ablation Code(s): I83.12 - Varicose veins of left lower extremity with inflammation Category: Medical Plan: The patient has done extremely well with all venous treatments. Patient's may often experience postprocedure phlebitic episodes and I have discussed with the patient use of warm compresses and NSAIDS if tolerated for pain discomfort. In addition, I have discussed continued conservative measures including use of compression, leg elevation, and exercise. The patient was also given an information sheet regarding appropriate use of compression stockings and future purchases. Thank you for allowing us to care for your patient with venous disease. Coding Level of Care Code Est Pt Level 3 (93736) Diagnoses Varicose veins of left lower extremity with inflammation I83.12
--- OUTSIDE RECORDS SUMMARY | 2025-06-05 12:15 | XMS_ITS | Patient Health Record ---
[facility] Address [address] [place] [phone] Care Team Providers Care Brick Setter Operator Name Role Phone Amita Ruiz MD [...] Problem Status W/U Status Risk Notes Problem [id number] Colon cancer screening (Z12.11) Active confirmed Problem 706830634 Anemia, unspecified type (D64.9) Active confirmed Problem 73663162 Irritable bowel syndrome with both constipation and diarrhea (K58.2) Active confirmed Vital Signs Blood pressure diastolic 111 mm Hg 02/15/2025 Height 5 ft 1 in in 02/15/2025 Blood pressure systolic 111 mm Hg 02/15/2025 Weight 250 lbs 02/15/2025 BMI 47.23 kg/m2 02/15/2025 Encounters Encounter Location Date Provider Diagnosis [facility] [address] [place] [phone] 02/15/2025 Arie Last Jr Anemia, unspecified type D64.9 [facility] [address] [place] [phone] 02/08/2025 Arie Last Jr Assessments Encounter Date [...] Provider Name:Arie jordan Jr, 08/20/2025 09:40:00 AM, [address] [place] [address], [address], [place], [address], Insurance Providers Payer Name Payer Address Payer Phone Subscriber Number Group Number Insured Name Patient Relationship to Insured Coverage Start Date Coverage End Date [facility] [address] [address] [place], [place] [id number] TIFFANY SOUZA Self - patient is the insured MEDICAID OF [place] [address] [place] [id number] TIFFANY SOUZA Self - patient is the [...]
--- OUTSIDE RECORDS SUMMARY | 2025-06-05 12:15 | XMS_ITS ---
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 breast in female, estrogen receptor positive ([facility] V24, [facility] V28) 11/09/2024 Cancer Staging:Pathologic:Stage IA(pT1c, pN0, cM0, G1, ER+, [place]+, HER2-) - Signed by Radha Bourgeois MD on 11/09/2024 Iron deficiency anemia 11/07/2024 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 ([facility] V24) 11/07/2024 Depression with anxiety 11/07/2024 Arthritis 11/07/2024 A-fib ([facility] V24, [facility] V28) 11/07/2024 Hypothyroidism Current Oncology Plans [...]
== END 2025-06-05 11:32 | disposition home or self-care (01) ==
LOC: HO.HVS 11:11
PROVIDERS: PCP Internal Medicine; Visit Provider Surgery Vascular Surgery
DX: I83.12 Varicose veins of left lower extremity with inflammation (principal)
CPT/HCPCS: 99213

== ENCOUNTER → 2025-06-05 11:10 | Outpatient (BNVA) | payer OTHER, SELFPAY | PROVIDERS: PCP Internal Medicine; Visit Provider Surgery Vascular Surgery | DX: I83.12 Varicose veins of left lower extremity with inflammation (principal) | CPT/HCPCS: 99212 ==

== ENCOUNTER 2025-07-12 13:36 | Outpatient (AMB) | payer OTHER, SELFPAY ==
[2025-07-12 13:48] VITALS: PULSE 79; O2SAT 97; BMI 48.6
--- NOTE | 2025-07-12 13:48 | MHC.OFFVIS ---
Vital Signs 07/12/25 13:48 Height 5 ft 1 in Weight 257 lb BMI 48.6 Pulse 79 Pulse Source Pulse Oximeter Pulse Oximetry (%) 97 Oxygen Delivery Method Nasal Cannula Oxygen Flow Rate 1.5 Intake Visit Reasons: Dyspnea Allergies erythromycin base Allergy (Intermediate, Verified 07/12/25 13:54) Abdominal Pain lisinopril Allergy (Intermediate, Verified 07/12/25 13:54) Rash HPI HPI Dyspnea: Details: 64-year-old lady, nonsmoker, with underlying QAMAR on CPAP, paroxysmal AFib, and essentially otherwise normal cardiac workup referred for evaluation of pulmonary component dyspnea. Patient reports dyspnea on exertion after walking for several 100 yd. She does have family history of lung cancer in her mother who was not a smoker. Patient states that she previously has used albuterol MDI for possible mild asthma, however she does not remember it ever provide significant relief. Patient does have recent pulmonary function testing performed at [facility] [place] showing moderate obstruction with no bronchodilator response and normal diffusion capacity which is inconsistent with COPD or emphysema. After the last office visit patient states that her metolazone was decreased by her floor technician to twice a day and her lower extremity edema has worsened. She continues to require supplemental oxygen on 12/30 0.5 L. She did have her AFib ablation. [facility] Medical History (HFpEF) heart failure with preserved ejection fraction Arthritis HX: breast cancer SOB (shortness of breath) On anticoagulant therapy Invasive ductal carcinoma of right breast in female A-fib Hypothyroid Osteoporosis Urethral stenosis Depression with anxiety Thyroid cancer Acid reflux Kidney stone QAMAR (obstructive sleep apnea) Hypertension Knee pain, left Surgical History History of lumpectomy of right breast (09/20/24) Hx of dilation of urethra Hx of cystoscopy H/O colonoscopy History of partial hysterectomy History of thyroidectomy Family History Mother Lung cancer Father HTN (hypertension) Melanoma Social History Household Members: Spouse Housing: House Are you a primary senior care assistant to a significant other at home: No Do you presently have visiting nurse or other home services: No Alcohol intake: current Alcohol intake frequency: does not drink Patient Tobacco Use Status: Never used Tobacco e-Cigarette/Vaping Use: Never Used service: No Current occupational status: unemployed Current occupation: right handed Cognitive needs: No Hearing needs: No Vision needs: Yes Female Reproductive History Menstrual Age of Menarche: 13 Review of Systems Const Denies daytime sleepiness, Denies excessive sweating, Denies fatigue, Denies fever(s), Denies lethargy, Denies malaise, Denies night sweats, Denies snoring and Denies weight loss Eyes Denies blurry vision and Denies itchy eyes ENT Denies nasal congestion, Denies post nasal drip, Denies sinus pain, Denies sinus pressure and Denies other ( Thrush) Card Denies chest pain, Reports pedal edema, Denies dyspnea, Reports dyspnea on exertion, Denies orthopnea and Denies paroxysmal nocturnal dyspnea Resp Denies cough, Denies hemoptysis, Denies excessive phlegm production, Denies dyspnea, Reports dyspnea on exertion, Denies snoring and Denies wheezing GI Denies abdominal pain and Denies heartburn Musc Denies myalgias, Denies arthralgias and Denies joint swelling Skin/Breast Denies rash Neuro Denies memory loss and Denies seizure-like activity Psych Denies abnormal sleep pattern, Denies anxiety and Denies memory loss Endo Denies excessive sweating, Denies fatigue and Denies heat intolerance Maynor/Lymph Denies easy bruising Aller/Immun Denies itchy eyes, Denies seasonal rhinorrhea and Denies wheezing Physical Exam Vital Signs: Last Vital Signs Pulse 79 07/12/25 13:48 Pulse Ox 97 07/12/25 13:48 Oxygen Delivery Method Nasal Cannula 07/12/25 13:48 Oxygen Flow Rate 1.5 07/12/25 13:48 BMI result Body Mass Index 48.6 Const General: no acute distress and alert Nutritional Appearance: obese Orientation/consciousness: Other orientation findings ( oriented) HEENT Head: Yes atraumatic Eyes General: appearance normal, both eyes and all related structures Sclerae: sclerae normal EOM: EOMs intact bilaterally Neck Neck: Yes supple Lymphatic: no lymphadenopathy noted Resp Effort & Inspection: normal respiratory effort and no use of accessory muscles Auscultation: clear to auscultation bilaterally Cardio Rate: regular rate Rhythm: regular rhythm Heart sounds: no gallops, no murmurs and no rubs Skin General skin exam: other ( warm) Extrem General: No clubbing, No cyanosis and Yes edema (2+ bilateral) Assessment & Plan Assessment & Plan (1) Obstructive sleep apnea: Code(s): G47.33 - Obstructive sleep apnea (adult) (pediatric) Category: Medical (2) Supplemental oxygen dependent: Code(s): Z99.81 - Dependence on supplemental oxygen Category: Medical (3) Dyspnea: Code(s): R06.00 - Dyspnea, unspecified Category: Medical (4) Orthopnea: Code(s): R06.01 - Orthopnea Category: Medical Plan Somewhat worsening lower extremity edema after her metolazone good changed to twice a day. Patient has been advised to increase her diuretic with a goal of losing 10-15 lb and to continue monitor her weight daily. Will continue supplemental oxygen as she desaturates with even short walks without it. Will require new 6 minute walk test after July 30 as patient's insurance is changing to Medicare. Orders: Orders AMB 6 minute walk 08/03/25 Z99.81 - Dependence on supplemental oxygen Coding Level of Care Code Est Pt Level 4 (00752) Complex EM visit Add On G2211 Diagnoses Obstructive sleep apnea G47.33 Supplemental oxygen dependent Z99.81 Dyspnea R06.00 Orthopnea R06.01
--- OUTSIDE RECORDS SUMMARY | 2025-07-12 14:29 | XMS_ITS | Patient Health Record ---
Author Organization [facility] Address [address] [place] [address] Care Team Providers Care Medical Lead Name Role Phone Amita Ruiz MD Primary [...] Problem Status W/U Status Risk Notes Problem 177126778 Colon cancer screening (Z12.11) Active confirmed Problem 604797254 Anemia, unspecified type (D64.9) Active confirmed Problem 64631747 Irritable bowel syndrome with both constipation and diarrhea (K58.2) Active confirmed Vital Signs Blood pressure diastolic 111 mm Hg 02/15/2025 Height 5 ft 1 in in 02/15/2025 Blood pressure systolic 111 mm Hg 02/15/2025 Weight 250 lbs 02/15/2025 BMI 47.23 kg/m2 02/15/2025 Encounters Encounter Location Date Provider Diagnosis [facility] [address] [place] [phone] 02/15/2025 Arie Last Jr Anemia, unspecified type D64.9 [facility] [address] [place] [phone] 02/08/2025 Arie Last Jr Assessments Encounter Date [...] Provider Name:Arie jordan Jr, 08/20/2025 09:40:00 AM, [address] [place] [address], [address], [place], [address], Insurance Providers Payer Name Payer Address Payer Phone Subscriber Number Group Number Insured Name Patient Relationship to Insured Coverage Start Date Coverage End Date [facility] [address] [address] [place], [place] [id number] TIFFANY SOUZA Self - patient is the insured MEDICAID OF [employer] [address] [place] [phone] [id number] TIFFANY SOUZA Self - patient is the [...]
--- OUTSIDE RECORDS SUMMARY | 2025-07-12 14:29 | XMS_ITS ---
Author Organization [facility] Address [address] [place] [address] Phone Care Team Providers Care Etcher Printed Circuit Boards Name Role Phone Amita Ruiz MD Primary Care Provider [phone] Active Problems Problem Noted Date Diagnosed Date COVID-19 12/01/2024 Acute hypoxemic respiratory failure due to COVID-19 ([facility] V24, [facility] V28) 12/01/2024 Malignant neoplasm of upper- outer quadrant of right breast in female, estrogen receptor positive ([facility] V24, [facility] V28) 11/09/2024 Cancer Staging:Pathologic:Stage IA(pT1c, pN0, cM0, G1, ER+, MD+, HER2-) - Signed by Radha Bourgeois MD on 11/09/2024 Iron deficiency anemia 11/07/2024 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 ([facility] V24) 11/07/2024 Depression with anxiety 11/07/2024 Arthritis 11/07/2024 A-fib ([facility] V24, [facility] V28) 11/07/2024 Hypothyroidism Current Oncology [...]
== END 2025-07-12 14:20 | disposition home or self-care (01) ==
LOC: HO.HPS 13:37
PROVIDERS: PCP Internal Medicine; Visit Provider Internal Medicine Pulmonary Disease
DX: G47.33 Obstructive sleep apnea (adult) (pediatric) (principal); Z99.81 Dependence on supplemental oxygen; R06.00 Dyspnea, unspecified; R06.01 Orthopnea
CPT/HCPCS: 99214

== ENCOUNTER → 2025-07-12 13:36 | Outpatient (BNVA) | payer OTHER, SELFPAY | PROVIDERS: PCP Internal Medicine; Visit Provider Internal Medicine Pulmonary Disease | DX: G47.33 Obstructive sleep apnea (adult) (pediatric) (principal); Z99.89 Dependence on other enabling machines and devices; R06.00 Dyspnea, unspecified; R06.01 Orthopnea | CPT/HCPCS: 99212 ==

== ENCOUNTER 2025-07-18 10:39 | Outpatient (AMB) | payer OTHER, SELFPAY ==
--- NOTE | 2025-07-18 10:48 | MHC.OFFVIS ---
Vital Signs 07/18/25 10:49 Height 5 ft 1 in Weight 258 lb BMI 48.7 BP 120/60 Blood Pressure Location Lt brachial Position Sitting Pulse 76 Pulse Source Pulse Oximeter Pulse Oximetry (%) 91 L Oxygen Delivery Method Nasal Cannula Intake Visit Reasons: joint pain on hands Intake Note: PAtient presents today for joint pain in hands. Accompanied by: Self / Same As Patient Allergies erythromycin base Allergy (Intermediate, Verified 07/18/25 10:49) Abdominal Pain lisinopril Allergy (Intermediate, Verified 07/18/25 10:49) Rash HPI HPI joint pain on hands: Details: New patient visit. accompanies patient during visit. She was referred due to concern for arthritis in her hands ? Rheumatoid arthritis. She is dropping things. She has noted deformities in her hands that have progressed over time. Morning stiffness is 30 minutes. She has been experiencing pain in multiple joints. She has pain all over mainly affecting her hands, elbows and knees. She has history of osteoarthritis affecting her knees. She has seeked surgical opinion who recommends surgery but she has to lose weight, which she has not been able to do. She has failed cortisone injections and Tylenol 1000 mg prn joint pain. Oral NSAIDs are contraindicated due to current use of anticoagulation. Physical therapy was not recommended. She inquired about gel injections but it was not recommended by orthopedic surgeon. She has difficulty with ambulation and uses a walker. She is afraid to use her recumbent bike at home. Her bought her a bike/tricycle, which she has not used. She is undergoing pulmonary rehabilitation. She has swelling in her legs due to heart failure. She does not wear compression stockings. Vascular surgeon recommended compression stockings but her pulmonologists did not think it would help her. She does not have any swelling in her joints in her upper extremities. She sometimes complains about shoulder pain and is limited with her function due to uncontrolled pain. She has intermittent right elbow pain. No change in pain when carrying objects. No known aggravating or relieving factors. No history of psoriasis or IBD. Her father has gout. Surgical history is significant for hysterectomy, lumpectomy, heart ablation and leg ablation. Denies smoking Denies alcohol or recreational drug use. She is retired. [facility] Medical History (HFpEF) heart failure with preserved ejection fraction Arthritis HX: breast cancer SOB (shortness of breath) On anticoagulant therapy Invasive ductal carcinoma of right breast in female A-fib Hypothyroid Osteoporosis Urethral stenosis Depression with anxiety Thyroid cancer Acid reflux Kidney stone QAMAR (obstructive sleep apnea) Hypertension Knee pain, left Surgical History History of lumpectomy of right breast (09/20/24) Hx of dilation of urethra Hx of cystoscopy H/O colonoscopy History of partial hysterectomy History of thyroidectomy Family History (Updated 07/18/25 @ 10:55 by Michelle Salinas CMA) Mother Lung cancer Father HTN (hypertension) Melanoma Sister Uterine cancer Social History Household Members: Spouse Housing: House Are you a primary manager care management to a significant other at home: No Do you presently have visiting nurse or other home services: No Alcohol intake: current Alcohol intake frequency: does not drink Patient Tobacco Use Status: Never used Tobacco e-Cigarette/Vaping Use: Never Used service: No Current occupational status: unemployed Current occupation: right handed Cognitive needs: No Hearing needs: No Vision needs: Yes Female Reproductive History Menstrual Age of Menarche: 13 Physical Exam Vital Signs: Last Vital Signs Pulse 76 07/18/25 10:49 BP 120/60 07/18/25 10:49 Pulse Ox 91 L 07/18/25 10:49 Oxygen Delivery Method Nasal Cannula 07/18/25 10:49 BMI result Body Mass Index 48.7 Const Other: General: Comfortable CVS: RRR Respiratory: clear to auscultation bilaterally. Good respiratory effort Skin: No lesions seen MSK: She has subluxation of many DIPJ bilateral hands. Heberden nodes present. Tender to palpate right 4th PIP with hypertrophy of joint. No synovitis. Reduced electrophysiology nurse practitioner strength. Active shoulder abduction left shoulder 90 degrees, which increases to 100 degrees passively. She has limited internal and external range of motion of left shoulder due to pain. Right shoulder range of motion is normal. Tender to palpate right lateral epicondyle. No pain with resisted wrist extension. Mild valgus deformity bilateral knees with crepitus of right knee on palpation. Diffuse dorsal foot edema with +2 pitting edema bilateral legs up to level of knees. Assessment & Plan Assessment & Plan (1) Osteoarthritis of hands, bilateral: Comment: Pain is tolerable. She has weakness. Clinical osteoarthritis of hands. She does not have any clinical signs of inflammatory arthritis. We discussed diagnosis, natural course and further management. Code(s): M19.041 - Primary osteoarthritis, right hand; M19.042 - Primary osteoarthritis, left hand Category: Medical Plan: She will try Tylenol 650 mg 1-2 tablets every 8 hours prn joint pain Avoid oral NSAIDs due to concurrent use of Eliquis X-ray bilateral hands ordered OT ordered for hand strengthening Return to clinic in 3 months (2) Osteoarthritis of knees, bilateral: Comment: Pain is uncontrolled limiting her function. She uses a walker to ambulate. X-rays from 2020 personally reviewed with patient, which reveals severe joint space narrowing of bilateral medial compartments. Failed Tylenol and cortisone injections. Discuss medical management. Code(s): M17.0 - Bilateral primary osteoarthritis of knee Category: Medical Plan: Increase Tylenol to 650 mg 1-2 tablets every 8 hours prn joint pain Avoid oral NSAIDs due to concurrent use of Eliquis PT ordered to improve function and knee strength with goal of patient riding her recumbent bike at home We can consider Euflexxa injections in the future Return to clinic in 3 months (3) Shoulder pain, bilateral: Comment: Bilateral with limited range of motion of left shoulder. Code(s): M25.511 - Pain in right shoulder; M25.512 - Pain in left shoulder Category: Medical Plan: X-ray bilateral shoulders ordered to evaluate for joint pathology contributing Return to clinic in 3 months (4) Right lateral epicondylitis: Comment: Suspected. Discussed conservative management. Code(s): M77.11 - Lateral epicondylitis, right elbow Category: Medical Plan: OT ordered Elbow support band prescription given to patient Take Tylenol 650 mg 1-2 tablets every 8 hours prn pain Avoid oral NSAIDs due to concurrent use of Eliquis Return to clinic in 3 months Orders: Orders XR Knee Tim 3V Today M17.0 - Bilateral primary osteoarthritis of knee XR Hand Bilat min 3v Today M19.041 - Primary osteoarthritis, right hand, M19.042 - Primary osteoarthritis, left hand XR Shoulder Tim min 2V Today M25.511 - Pain in right shoulder, M25.512 - Pain in left shoulder PT Evaluation and Treatment Today M17.0 - Bilateral primary osteoarthritis of knee OT Evaluation and Treatment Today M19.041 - Primary osteoarthritis, right hand, M19.042 - Primary osteoarthritis, left hand, M77.11 - Lateral epicondylitis, right elbow Medications: New arm brace As directed Elbow support band Dx: lateral epicondylitis 1 ea 0RF Coding Level of Care Code New Pt Level 4 (31261) Diagnoses Osteoarthritis of hands, bilateral M19.041; M19.042 Osteoarthritis of knees, bilateral M17.0 Shoulder pain, bilateral M25.511; M25.512 Right lateral epicondylitis M77.11
[2025-07-18 10:49] VITALS: BP 120/60; PULSE 76; O2SAT 91; BMI 48.7
--- OUTSIDE RECORDS SUMMARY | 2025-07-18 11:59 | XMS_ITS ---
Author Organization [facility] Address [address] [place] [address] Phone Care Team Providers Care Well Driller Helper Name Role Phone Amita Ruiz MD Primary Care Provider [phone] Active Problems Problem Noted Date Diagnosed Date COVID-19 12/01/2024 Acute hypoxemic respiratory failure due to COVID-19 ([facility] V24, [facility] V28) 12/01/2024 Malignant neoplasm of upper- outer quadrant of right breast in female, estrogen receptor positive ([facility] V24, [facility] V28) 11/09/2024 Cancer Staging:Pathologic:Stage IA(pT1c, pN0, cM0, G1, ER+, NE+, HER2-) - Signed by Radha Bourgeois MD on 11/09/2024 Iron deficiency anemia 11/07/2024 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 ([facility] V24) 11/07/2024 Depression with anxiety 11/07/2024 Arthritis 11/07/2024 A-fib ([facility] V24, [facility] V28) 11/07/2024 Hypothyroidism Current Oncology [...]
--- OUTSIDE RECORDS SUMMARY | 2025-07-18 11:59 | XMS_ITS | Patient Health Record ---
Author Organization [facility] Address [address] [place] [address] Care Team Providers Care Clinical Unit Coordinator Name Role Phone Amita Ruiz MD [...] Problem Status W/U Status Risk Notes Problem [id number] Colon cancer screening (Z12.11) Active confirmed Problem 370090294 Anemia, unspecified type (D64.9) Active confirmed Problem 90749772 Irritable bowel syndrome with both constipation and diarrhea (K58.2) Active confirmed Vital Signs Blood pressure diastolic 111 mm Hg 02/15/2025 Height 5 ft 1 in in 02/15/2025 Blood pressure systolic 111 mm Hg 02/15/2025 Weight 250 lbs 02/15/2025 BMI 47.23 kg/m2 02/15/2025 Encounters Encounter Location Date Provider Diagnosis [facility] [address] [place] [phone] 02/15/2025 Arie Last Jr Anemia, unspecified type D64.9 [facility] [address] [place] [phone] 02/08/2025 Arie Last Jr Assessments Encounter Date [...] Provider Name:Arie jordan Jr, 08/20/2025 09:40:00 AM, [address] [place] [address], [address], [place], [address], Insurance Providers Payer Name Payer Address Payer Phone Subscriber Number Group Number Insured Name Patient Relationship to Insured Coverage Start Date Coverage End Date [facility] [address] [address] [place], [place] [id number] TIFFANY SOUZA Self - patient is the insured MEDICAID OF [employer] [address] [place] [phone] [id number] TIFFANY SOUZA Self - patient is the [...]
== END 2025-07-18 12:03 | disposition home or self-care (01) ==
LOC: HO.RHES 10:40
PROVIDERS: PCP Internal Medicine; Visit Provider Internal Medicine Rheumatology
DX: M19.041 Primary osteoarthritis, right hand (principal); M19.042 Primary osteoarthritis, left hand; M17.0 Bilateral primary osteoarthritis of knee; M25.511 Pain in right shoulder; M25.512 Pain in left shoulder; M77.11 Lateral epicondylitis, right elbow
CPT/HCPCS: 99204

== ENCOUNTER → 2025-07-18 10:39 | Outpatient (BNVA) | payer OTHER, SELFPAY | PROVIDERS: PCP Internal Medicine; Visit Provider Internal Medicine Rheumatology | DX: M19.041 Primary osteoarthritis, right hand (principal); M19.042 Primary osteoarthritis, left hand; M17.0 Bilateral primary osteoarthritis of knee; M25.511 Pain in right shoulder; M25.512 Pain in left shoulder; M77.11 Lateral epicondylitis, right elbow | CPT/HCPCS: 99202 ==

== ENCOUNTER → 2025-07-24 20:30 | Outpatient (REF) | payer OTHER, SELFPAY ==
--- OUTSIDE RECORDS SUMMARY | 2025-07-24 20:56 | XMS_ITS | Patient Health Record ---
Author Organization [facility] Address [address] [place] [phone] Care Team Providers Care Junior Copywriter Name Role Phone Amita Ruiz MD Primary [...] Problem Status W/U Status Risk Notes Problem [id number] Colon cancer screening (Z12.11) Active confirmed Problem 801189105 Anemia, unspecified type (D64.9) Active confirmed Problem 58170312 Irritable bowel syndrome with both constipation and diarrhea (K58.2) Active confirmed Vital Signs Blood pressure diastolic 111 mm Hg 02/15/2025 Height 5 ft 1 in in 02/15/2025 Blood pressure systolic 111 mm Hg 02/15/2025 Weight 250 lbs 02/15/2025 BMI 47.23 kg/m2 02/15/2025 Encounters Encounter Location Date Provider Diagnosis [facility] [address] [place] [phone] 02/15/2025 Arie Last Jr Anemia, unspecified type D64.9 [facility] [address] [place] [phone] 02/08/2025 Arie Last Jr Assessments Encounter Date [...] Provider Name:Arie jordan Jr, 08/20/2025 09:40:00 AM, [address] [place] [address], [address], [place], [address], Insurance Providers Payer Name Payer Address Payer Phone Subscriber Number Group Number Insured Name Patient Relationship to Insured Coverage Start Date Coverage End Date [facility] [address] [address] [place], [place] [id number] TIFFANY SOUZA Self - patient is the insured MEDICAID OF [employer] [address] [place] [id number] [id number] TIFFANY SOUZA Self - patient is the [...]
--- OUTSIDE RECORDS SUMMARY | 2025-07-24 20:56 | XMS_ITS | Clinical Summary ---
Author Organization [facility] Address [address] [place] [address] Phone Care Team Providers Care Keypuncher Name Role Phone Amita Ruiz MD Primary Care Provider [phone] Allergies Active Allergy Reactions Criticality Noted Date [...] Acute hypoxemic respiratory failure due to COVID-19 ([facility] V24, [facility] V28) 12/01/2024 Malignant neoplasm of upper- outer quadrant of right breast in female, estrogen receptor positive ([facility] V24, [facility] V28) 11/09/2024 Cancer Staging:Pathologic:Stage IA(pT1c, pN0, cM0, G1, ER+, GA+, HER2-) - Signed by Radha Bourgeois MD on 11/09/2024 Iron deficiency anemia 11/07/2024 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 ([facility] V24) 11/07/2024 Depression with anxiety 11/07/2024 Arthritis 11/07/2024 A-fib ([facility] V24, [facility] V28) 11/07/2024 Hypothyroidism Resolved Problems Problem Noted Date Diagnosed Date Resolved Date Anemia 11/07/2024 11/07/2024 Surgical History Surgery Date Site/Laterality Comments COLONOSCOPY BREAST LUMPECTOMY 09/20/2024 Right PARTIAL HYSTERECTOMY THYROIDECTOMY CYSTOSCOPY Medical History Medical History Date Comments Cancer ([facility] V24, [facility] V28) Gout A-fib ([facility] V24, [facility] V28) Thyroid cancer ([facility] V24, [facility] V28) Sleep apnea Reflux esophagitis Family History [...] 100 02/15/2025 11:03 AM EDT Temperature 36.4 C (97.5 F) 02/15/2025 11:03 AM EDT Respiratory Rate 18 02/15/2025 11:03 AM EDT [...] Years (1 of 2 - PCV) 1979 Zoster Vaccines (1 of 2) 1979 Cervical Cancer Screening: Pap Smear 1981 RSV Immunization Adult Patients (1 - Risk 60-74 years 1-dose series) 2020 COVID-19 Vaccine ( - season) 2024 09/29/2021, 03/25/2021, 03/04/2021 Colorectal Cancer Screening: Colonoscopy 10/13/2024 HIV Screening 10/13/2024 Hepatitis C Screening 10/13/2024 Social Influencers of Health Screening 10/13/2024 Depression Screening 11/29/2024 Influenza Vaccine (#1) 2025 , 09/08/2022, 11/06/2021, Additional history exists Osteoporosis Screening (Bone Density Screening) 04/28/2034 04/28/2024, 04/09/2023, 03/27/2022, Additional history exists HIB Vaccines Aged Out [...] patient's age [place] [id number] [employer] Advance Directives * Full Code - [...] currently active code status orders. Care Teams Keypuncher Relationship Specialty Start Date End Date Amita Ruiz MD [address] [place] [place] [address] PCP - General Internal Medicine 10/13/24
--- OUTSIDE RECORDS SUMMARY | 2025-07-24 20:56 | XMS_ITS ---
Author Organization [facility] Address [address] [place] [address] Phone Care Team Providers Care Mediation Commissioner Name Role Phone Amita Ruiz MD Primary Care Provider [phone] Active Problems Problem Noted Date Diagnosed Date COVID-19 12/01/2024 Acute hypoxemic respiratory failure due to COVID-19 ([facility] V24, [facility] V28) 12/01/2024 Malignant neoplasm of upper- outer quadrant of right breast in female, estrogen receptor positive ([facility] V24, [facility] V28) 11/09/2024 Cancer Staging:Pathologic:Stage IA(pT1c, pN0, cM0, G1, ER+, [place]+, HER2-) - Signed by Radha Bourgeois MD on 11/09/2024 Iron deficiency anemia 11/07/2024 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 ([facility] V24) 11/07/2024 Depression with anxiety 11/07/2024 Arthritis 11/07/2024 A-fib ([facility] V24, [facility] V28) 11/07/2024 Hypothyroidism Current Oncology [...]
== END ==
LOC: HO.SL 20:30
PROVIDERS: PCP Internal Medicine; Visit Provider Physician Assistant Medical
DX: R06.81 Apnea, not elsewhere classified (principal); I48.91 Unspecified atrial fibrillation; Z53.8 Procedure and treatment not carried out for other reasons
CPT/HCPCS: 95810

== ENCOUNTER → 2025-07-24 22:06 | Outpatient (BNV) | payer OTHER, SELFPAY | PROVIDERS: PCP Internal Medicine; Visit Provider Psychiatry & Neurology Neurology | DX: G47.33 Obstructive sleep apnea (adult) (pediatric) (principal) | CPT/HCPCS: 95810 ==

== ENCOUNTER 2025-07-31 09:23 | Outpatient (REF) | payer MEDICARE, SELFPAY ==
--- NOTE | ~2025-07-31 | MM_ITS ---
EXAMINATION (S): MM DIAGNOSTIC DIGITAL BREAST TOMOSYNTHESIS, BILATERAL CLINICAL INFORMATION: Patient is status post right lumpectomy for invasive ductal carcinoma in August 2024. COMPARISON: Comparison made to multiple prior, most recent right mammogram for LOCalizer tag placement on September 19, 2024, and most remote June 24, 2022. TECHNIQUE: Digital breast tomosynthesis is performed in both the mediolateral oblique and craniocaudal views along with computer-aided detection (CAD). Synthesized 2D images are generated from the tomosynthesis. FINDINGS: BREAST COMPOSITION: There are scattered areas of fibroglandular density (ACR BI-RADS breast composition Category b). RIGHT BREAST: Post lumpectomy changes. No significant masses, suspicious calcifications or other abnormalities are seen. LEFT BREAST: No significant masses, suspicious calcifications or other abnormalities are seen. MM/MM tomosynthesis diagnostic BI IMPRESSION: BILATERAL BREASTS: Benign, no mammographic evidence of malignancy. Normal interval follow-up is recommended in 12 months. ASSESSMENT: BI-RADS 2 - Benign Findings RECOMMENDATION: 12 month diagnostic follow up Results were provided to the patient at time of visit by the technologist. This patient's information was entered into a reminder system with a target due date for their next mammogram. Electronically signed by: Leonid Boyer MD 07/31/2025 11:55 AM EDT
--- NOTE | ~2025-07-31 | XR_ITS ---
Exam: XR HAND 3 VIEWS BILATERAL, bilateral hand x-rays TECHNIQUE: AP, lateral, and oblique views upper extremity, bilateral hands INDICATION: M19.041 - Primary osteoarthritis, right hand COMPARISON: Left hand on 08/19/2017 FINDINGS: RIGHT HAND: Severe degenerative changes are present in the DIP joints of the second, fourth, and fifth digits and the PIP joints of the fourth digit with joint deformity and joint space narrowing. Mild to moderate degenerative changes are present in the other DIP and PIP joints. There are moderate to large marginal osteophytes. There is also moderate degenerative change in first carpal metacarpal joint and scaphoid trapezium trapezoid joint with joint space narrowing and marginal osteophytes. There is soft tissue ossification along the radial side of the IP joint of thumb. Bone mineral density is within normal limits. LEFT HAND: Degenerative changes have increased since the prior study. There are moderate severe degenerative changes in the DIP joints of the second-fifth digits with joint space narrowing, irregularity, and marginal osteophytes. There are mild to moderate degenerative changes involving PIP joints, most advanced at the fourth ray with joint space narrowing, subchondral cortical irregularity, and small marginal osteophyte. There are moderate to severe degenerative changes involving the scaphoid trapezoid trapezial joint and first carpometacarpal joint with sclerosis, narrowing, and marginal osteophytes. XR/XR Hand Bilat min 3v IMPRESSION: Right hand: Severe degenerative changes consistent with osteoarthritis Left hand: Severe degenerative changes consistent with osteoarthritis. Electronically signed by: Carlo Bourne MD 07/31/2025 03:43 PM EDT
--- NOTE | ~2025-07-31 | XR_ITS ---
Exam: 2 view bilateral shoulders. TECHNIQUE: 5 view and AP neutral, bilateral shoulder x-rays INDICATION: Bilateral shoulder pain No prior FINDINGS: RIGHT SHOULDER: AC joint is mildly narrowed with marginal osteophytes. There is no AC joint separation. Glenohumeral joint is not dislocated. There is minimal marginal ossified involving the humeral head. LEFT SHOULDER: There is moderate narrowing and minimal osteophyte formation involving the AC joint. There is no AC joint separation. Glenohumeral joint is not dislocated. There is a moderate-sized medial osteophyte involving the humeral head. There is a geographic area of sclerosis in the proximal lateral metaphysis of the humerus measuring 8 x 21 mm. It demonstrates rings of lower density. There is no sign of endosteal scalloping or cortical destruction. XR/XR Shoulder Tim min 2V IMPRESSION: Right shoulder Mild degenerative changes in the a.c. and glenohumeral joint. Left shoulder Moderate degenerative changes in the A.C. and glenohumeral joint. There is a nonaggressive appearing lesion in the lateral metaphysis of the proximal humerus likely representing a low-grade chondroid lesion such as an enchondroma. Electronically signed by: Carlo Bourne MD 07/31/2025 03:48 PM EDT
--- NOTE | ~2025-07-31 | XR_ITS ---
Exam: X-ray, bilateral knees.XR KNEE 1-2 VIEWS BILATERAL TECHNIQUE: AP and lateral views lower extremity joint, bilateral knees INDICATION: Chronic knee pain COMPARISON: None available. FINDINGS: RIGHT KNEE: There is no joint effusion. There is severe narrowing of the medial joint space. There are large marginal osteophytes involving the patellofemoral joint and minimal osteophytes in the medial and lateral joint spaces. LEFT KNEE: No joint effusion is evident. There is moderate narrowing of the medial joint space. There are tricompartmental marginal osteophytes, largest in the patellofemoral joint. XR/XR Knee Tim 1or 2V IMPRESSION: Right knee: Severe osteoarthritis Left knee: Moderate osteoarthritis Electronically signed by: Carlo Bourne MD 07/31/2025 03:37 PM EDT
--- OUTSIDE RECORDS SUMMARY | 2025-07-31 10:18 | XMS_ITS | Clinical Summary ---
Author Organization [facility] Address [address] [place] [address] Phone Care Team Providers Care Manufacturing Baker Name Role Phone Amita Ruiz MD Primary Care Provider [phone] Allergies Active Allergy Reactions Criticality Noted Date [...] due to COVID-19 ([facility] V24, [facility] V28) 12/01/2024 Malignant neoplasm of upper- outer quadrant of right breast in female, estrogen receptor positive (CMS/HCC V24, [facility] V28) 11/09/2024 Cancer Staging:Pathologic:Stage IA(pT1c, pN0, cM0, G1, ER+, [place]+, HER2-) - Signed by Radha Bourgeois MD on 11/09/2024 Iron deficiency anemia 11/07/2024 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 ([facility]) 11/07/2024 Depression with anxiety 11/07/2024 Arthritis 11/07/2024 A-fib ([facility] V24, [facility] V28) 11/07/2024 Hypothyroidism Resolved Problems Problem Noted Date Diagnosed Date Resolved Date Anemia 11/07/2024 11/07/2024 Surgical History Surgery Date Site/Laterality Comments COLONOSCOPY BREAST LUMPECTOMY 09/20/2024 Right PARTIAL HYSTERECTOMY THYROIDECTOMY CYSTOSCOPY Medical History Medical History Date Comments Cancer ([facility] V24, [facility] V28) Gout A-fib ([facility] V24, [facility] V28) Thyroid cancer ([facility] V24, [facility] V28) Sleep apnea Reflux esophagitis Family History [...] - Risk 60-74 years 1-dose series) 2020 Colorectal Cancer Screening: Colonoscopy 10/13/2024 HIV Screening 10/13/2024 Hepatitis C Screening 10/13/2024 Social Influencers of Health Screening 10/13/2024 Depression Screening 11/29/2024 COVID-19 Vaccine ( season) 2025 09/29/2021, 03/25/2021, 03/04/2021 Influenza Vaccine (#1) 2025 , 09/08/2022, 11/06/2021, [...] [place] [id number] [employer] Advance Directives * Full Code - [...] currently active code status orders. Care Teams Manufacturing Baker Relationship Specialty Start Date End Date Amita Ruiz MD [address] [facility] [place] [address] PCP - General Internal Medicine 10/13/24
--- OUTSIDE RECORDS SUMMARY | 2025-07-31 10:18 | XMS_ITS ---
Author Organization [facility] Address [address] [place] [address] Phone Care Team Providers Care Director Of Radiology Name Role Phone Amita Ruiz MD Primary Care Provider [phone] Active Problems Problem Noted Date Diagnosed Date COVID-19 12/01/2024 Acute hypoxemic respiratory failure due to COVID-19 ([facility] V24, [facility] V28) 12/01/2024 Malignant neoplasm of upper- outer quadrant of right breast in female, estrogen receptor positive ([facility] V24[facility] V28) 11/09/2024 Cancer Staging:Pathologic:Stage IA(pT1c, pN0, cM0, G1, ER+, [place]+, HER2-) - Signed by Radha Bourgeois MD on 11/09/2024 Iron deficiency anemia 11/07/2024 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 ([facility] V24) 11/07/2024 Depression with anxiety 11/07/2024 Arthritis 11/07/2024 A-fib ([facility] V24, [facility] V28) 11/07/2024 Hypothyroidism Current Oncology Plans No [...]
--- OUTSIDE RECORDS SUMMARY | 2025-07-31 10:18 | XMS_ITS | Patient Health Record ---
Author Organization [facility] Address [address] [place] [address] Care Team Providers Care Supervisor Facepiece Line Name Role Phone Amita Ruiz MD Primary Care Provider Arie Eduardo Jr Unavailable [phone] Allergies Allergen (clinical drug ingredient) Drug/Non [...] Problem Status W/U Status Risk Notes Problem 419202724 Colon cancer screening (Z12.11) Active confirmed Problem 184132750 Anemia, unspecified type (D64.9) Active confirmed Problem [id number] Irritable bowel syndrome with both constipation and diarrhea (K58.2) Active confirmed Vital Signs Blood pressure diastolic 111 mm Hg 02/15/2025 Height 5 ft 1 in in 02/15/2025 Blood pressure systolic 111 mm Hg 02/15/2025 Weight 250 lbs 02/15/2025 BMI 47.23 kg/m2 02/15/2025 Encounters Encounter Location Date Provider Diagnosis [facility] [address] [place] [address] 02/15/2025 Arie Last Jr Anemia, unspecified type D64.9 [facility] [address] [place] [phone] 02/08/2025 Arie Last Jr Assessments Encounter Date [...] Name:Arie jordan Jr, 08/20/2025 09:40:00 AM, [address] [place] [address], [address], [place], [address], Insurance Providers Payer Name Payer Address Payer Phone Subscriber Number Group Number Insured Name Patient Relationship to Insured Coverage Start Date Coverage End Date [facility] [address] [address] [place], [place] [id number] TIFFANY SOUZA Self - patient is the insured [place] [address] [place] [phone] [id number] TIFFANY SOUZA Self - patient is the [...]
== END 2025-07-31 09:24 | disposition home or self-care (01) ==
LOC: HO.MAMMO 09:23
PROVIDERS: PCP Internal Medicine; Referring Provider Internal Medicine Rheumatology; Visit Provider Surgery
DX: M19.041 Primary osteoarthritis, right hand (principal); M19.042 Primary osteoarthritis, left hand; M25.511 Pain in right shoulder; M25.512 Pain in left shoulder; Z85.3 Personal history of malignant neoplasm of breast
CPT/HCPCS: 73030; 73130; 73560; 77062; 77066

== ENCOUNTER → 2025-07-31 09:30 | Outpatient (BNV) | payer OTHER, SELFPAY | PROVIDERS: PCP Internal Medicine; Visit Provider Radiology Body Imaging | DX: Z85.3 Personal history of malignant neoplasm of breast (principal) | CPT/HCPCS: 77062; 77066 ==

== ENCOUNTER 2025-08-03 09:21 | Outpatient (AMB) | payer MEDICARE, MEDICAID, SELFPAY ==
--- NOTE | 2025-08-03 09:32 | A.OFFVIS_ITS ---
Vital Signs 3 08/03/25 09:42 Height 5 ft 1 in Weight 246 lb 8 oz BMI 46.6 BP 140/61 H Blood Pressure Location Lt brachial Position Sitting Pulse 75 Intake Visit Reasons: 6 mth Rt breast lumpectomy Intake Note: Pt is seen in office for 6 month follow up visit, breast exam. Pt c/o: aches at times, thinks might be due to scar tissue, no lump, bump or other concerns mm:07/31/25 Care Assistant Required: No Machine Operator Cane Cutter: Machine Operator Cane Cutter Present Accompanied by: Family/Other Allergies erythromycin base Allergy (Intermediate, Verified 08/03/25 09:42) Abdominal Pain lisinopril Allergy (Intermediate, Verified 08/03/25 09:42) Rash HPI Comments Details: 64-year-old female patient presenting with a recent mammogram dated 07/26/2024 with follow-up images obtained on 08/24/2024 with ultrasound also 08/24/2024 which revealed a radial scar in the right breast which was felt to be suspicious for malignancy. Subsequently ultrasound-guided core biopsy on 08/28/2024 revealed a right breast infiltrating ductal carcinoma, grade 1, ER positive, MT positive, HER2 Brandon negative, Ki-67 low. Her family history is negative for breast cancer. Her father has history of malignant melanoma. She is , and breastfed both her children. She did have a previous left breast biopsy with needle localization performed by Dr. Rooney which was benign. A right breast lumpectomy with sentinel node biopsy was performed on 09/20/2024. This confirmed right infiltrating ductal carcinoma, grade 1, 10.8 mm, with DCIS, grade 1 and 2, negative margins, with 1 sentinel node negative for metastases (pT1c pN0 (sn) (AJCC 8th ed.)), ER/MT positive, HER2 Brandon negative. She developed AFib post discharge and is being evaluated by Cardiology. Since her last visit she reports decreased pain and swelling in the right operated breast. She is scheduled for a repeat CT of the neck to re-evaluate an area of swelling in the left anterior chest. She reports having a long history of a area of swelling in the left chest lateral to the sternum in his uncertain if this is what they are seeing on the CT. She was evaluated by Dr. Koo and started on letrozole which she is tolerating well. She underwent radiation therapy at [facility] and completed this on 01/09/2025. She reports tolerating the radiation well. She is now being treated for atrial fibrillation, CHF, and a recent COVID 19 infection. She is wearing nasal O2, and is awaiting an ablation for the AFib. Her most recent mammogram dated 07/31/2025 revealed no mammographic evidence of malignancy (BI-RADS 2). Follow-up mammogram in 12 months is recommended. [facility] Medical History (HFpEF) heart failure with preserved ejection fraction Arthritis HX: breast cancer SOB (shortness of breath) On anticoagulant therapy Invasive ductal carcinoma of right breast in female A-fib Hypothyroid Osteoporosis Urethral stenosis Depression with anxiety Thyroid cancer Acid reflux Kidney stone QAMAR (obstructive sleep apnea) Hypertension Knee pain, left Surgical History History of lumpectomy of right breast (09/20/24) Hx of dilation of urethra Hx of cystoscopy H/O colonoscopy History of partial hysterectomy History of thyroidectomy Family History Mother Lung cancer Father HTN (hypertension) Melanoma Sister Uterine cancer Social History Household Members: Spouse Housing: House Are you a primary care information associate to a significant other at home: No Do you presently have visiting nurse or other home services: No Alcohol intake: current Alcohol intake frequency: does not drink Patient Tobacco Use Status: Never used Tobacco e-Cigarette/Vaping Use: Never Used service: No Current occupational status: unemployed Current occupation: right handed Cognitive needs: No Hearing needs: No Vision needs: Yes Female Reproductive History Menstrual Age of Menarche: 13 Review of Systems Const All systems reviewed & are unremarkable except as noted in HPI and below Physical Exam Const General: no acute distress Nutritional Appearance: well nourished Orientation/consciousness: patient oriented x3 Limitations: ambulation with walker Chest Other: Right breast: Well-healed incision in the upper outer quadrant of the right breast with no ecchymosis. No residual radiation change noted. No new palpable mass, skin change, or enlarged lymph nodes. Left breast: No skin change, nipple discharge, palpable mass or enlarged lymph nodes. Chest/axillae images: 2 1. Well-healed incision in the upper outer quadrant right breast. Resp Other: Nasal O2, mildly short of breath Effort & Inspection: normal respiratory effort Skin Other: Warm, dry, no rash Neuro Other: Mobility Assessment: 1. 3 meter assessment time (seconds) 8 2. Gait observations: slow tentative pace with walker General: patient oriented x3 Extrem Other: 1+ edema bilateral lower extremities Assessment & Plan Assessment & Plan (1) Invasive ductal carcinoma of right breast in female: Comment: 08/2024 s/p lumpectomy and radiation at [facility] Code(s): C50.911 - Malignant neoplasm of unspecified site of right female breast Category: Medical Plan 64-year-old female patient recently diagnosed with invasive ductal carcinoma of the right breast now status post right breast lumpectomy with sentinel node biopsy on 09/20/2024. She tolerated the procedure well returns today because of swelling in the incision. She completed radiation therapy and is currently on letrozole (Dr. Koo). Follow-up mammogram performed on 07/31/2025 revealed no mammographic evidence of malignancy and follow-up mammogram in 6 months is recommended. (BI-RADS 2). Examination reveals no suspicious findings in either breast. She will follow up in 6 months, sooner PRN. Coding Level of Care Code Est Pt Level 3 (34391) Complex EM visit Add On G2211 Diagnoses Invasive ductal carcinoma of right breast in female C50.911
[2025-08-03 09:42] VITALS: BP 140/61; PULSE 75; BMI 46.6
--- OUTSIDE RECORDS SUMMARY | 2025-08-03 10:06 | XMS_ITS ---
Author Organization [facility] Address [address] [place] [address] Phone Care Team Providers Care Electrical Electronics Engineers Name Role Phone Amita Ruiz MD Primary Care Provider [phone] Active Problems Problem Noted Date Diagnosed Date COVID-19 12/01/2024 Acute hypoxemic respiratory failure due to COVID-19 ([facility] V24, [facility] V28) 12/01/2024 Malignant neoplasm of upper- outer quadrant of right breast in female, estrogen receptor positive ([facility] V24, [facility] V28) 11/09/2024 Cancer Staging:Pathologic:Stage IA(pT1c, pN0, cM0, G1, ER+, [place]+, HER2-) - Signed by Radha Bourgeois MD on 11/09/2024 Iron deficiency anemia 11/07/2024 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 ([facility] V24) 11/07/2024 Depression with anxiety 11/07/2024 Arthritis 11/07/2024 A-fib ([facility] V24, [facility] V28) 11/07/2024 Hypothyroidism Current Oncology Plans [...]
--- OUTSIDE RECORDS SUMMARY | 2025-08-03 10:06 | XMS_ITS | Clinical Summary ---
Author Organization [facility] Address [address] [place] [address] Phone Care Team Providers Care Cab Supervisor Name Role Phone Amita Ruiz MD Primary Care Provider [phone] Allergies Active Allergy Reactions Criticality Noted Date [...] due to COVID-19 ([facility] V24, [facility] V28) 12/01/2024 Malignant neoplasm of upper- outer quadrant of right breast in female, estrogen receptor positive (CMS/HCC V24, [facility] V28) 11/09/2024 Cancer Staging:Pathologic:Stage IA(pT1c, pN0, cM0, G1, ER+, [place]+, HER2-) - Signed by Radha Bourgeois MD on 11/09/2024 Iron deficiency anemia 11/07/2024 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 ([facility] V24) 11/07/2024 Depression with anxiety 11/07/2024 Arthritis 11/07/2024 A-fib ([facility] V24, [facility] V28) 11/07/2024 Hypothyroidism Resolved Problems Problem Noted Date Diagnosed Date Resolved Date Anemia 11/07/2024 11/07/2024 Surgical History Surgery Date Site/Laterality Comments COLONOSCOPY BREAST LUMPECTOMY 09/20/2024 Right PARTIAL HYSTERECTOMY THYROIDECTOMY CYSTOSCOPY Medical History Medical History Date Comments Cancer ([facility] V24, [facility] V28) Gout A-fib ([facility] V24, [facility] V28) Thyroid cancer ([facility] V24, [facility] V28) Sleep apnea Reflux esophagitis Family History [...] Labor Labor/2nd/3rd Weight Sex Type Anes PTL Ojan A1 A5 Name Clin Para Para Last [...] age to [place] [id number] [employer] Advance Directives * Full Code - [...] currently active code status orders. Care Teams Cab Supervisor Relationship Specialty Start Date End Date Amita Ruiz MD [address] [place] [address] PCP - General Internal Medicine 10/13/24
--- OUTSIDE RECORDS SUMMARY | 2025-08-03 10:06 | XMS_ITS | Patient Health Record ---
Author Organization [facility] Address [address] [place] [address] Care Team Providers Care Metal And Plastic Heater Name Role Phone Amita Ruiz MD Primary [...] Problem Status W/U Status Risk Notes Problem 611169169 Colon cancer screening (Z12.11) Active confirmed Problem 379753058 Anemia, unspecified type (D64.9) Active confirmed Problem 99583302 Irritable bowel syndrome with both constipation and diarrhea (K58.2) Active confirmed Vital Signs Blood pressure diastolic 111 mm Hg 02/15/2025 Height 5 ft 1 in in 02/15/2025 Blood pressure systolic 111 mm Hg 02/15/2025 Weight 250 lbs 02/15/2025 BMI 47.23 kg/m2 02/15/2025 Encounters Encounter Location Date Provider Diagnosis [facility] [address] [place] [phone] 02/15/2025 Arie Last Jr Anemia, unspecified type D64.9 [facility] [address] [place] [phone] 02/08/2025 Arie Last Jr Assessments Encounter Date [...] Name:Arie jordan Jr, 08/20/2025 09:40:00 AM, [address] [place] [address], [address], [place], [address], Insurance Providers Payer Name Payer Address Payer Phone Subscriber Number Group Number Insured Name Patient Relationship to Insured Coverage Start Date Coverage End Date [facility] [address] [address] [place], [place] [id number] TIFFANY SOUZA Self - patient is the insured MEDICAID OF [employer] [address] [place] [id number] [phone] [id number] TIFFANY SOUZA Self - patient is the insured Medical (General) History Medical History History ICD Code Papillary thyroid carcinoma Hypertension Uterine fibroids Microscopic hematuria AQMAR/CPAP Osteoporosis Atrial fibrillation covid 11/2024- oxygen dependent Surgical History Surgery Date(Month/Year) vascular ds both legs breast cancer right -lumpectomy with rad iation 09/20/2024 partial hysterectomy 2016 Thyroidectomy, lymph node exploration an d removal Hospitalization History Reason Date(Month/Year) Atrial fibrillation with rapid ventricul ar response 01/21
== END 2025-08-03 09:56 | disposition home or self-care (01) ==
LOC: HO.HGS 09:21
PROVIDERS: PCP Internal Medicine; Visit Provider Surgery
DX: C50.911 Malignant neoplasm of unspecified site of right female breast (principal)
CPT/HCPCS: 99213; G2211

== ENCOUNTER → 2025-08-03 09:21 | Outpatient (BNVA) | payer MEDICAID, SELFPAY | PROVIDERS: PCP Internal Medicine; Visit Provider Surgery | DX: C50.411 Malignant neoplasm of upper-outer quadrant of right female breast (principal); Z99.81 Dependence on supplemental oxygen; Z98.890 Other specified postprocedural states | CPT/HCPCS: 94618; 99211; 99212 ==

== ENCOUNTER 2025-08-03 10:03 | Outpatient (AMB) | payer MEDICARE, SELFPAY ==
[2025-08-03 13:42] VITALS: BP 128/60; PULSE 78; O2SAT 92
--- NOTE | 2025-08-03 13:42 | MHC.OFFVIS ---
Vital Signs 08/03/25 13:42 BP 128/60 Blood Pressure Location Lt brachial Pulse 78 Pulse Source Pulse Oximeter Pulse Oximetry (%) 92 Oxygen Delivery Method Nasal Cannula Oxygen Flow Rate 1.5 Intake Visit Reasons: 6MW Van Loader Required: No Allergies erythromycin base Allergy (Intermediate, Verified 08/03/25 13:42) Abdominal Pain lisinopril Allergy (Intermediate, Verified 08/03/25 13:42) Rash Medication List - Last Reconciled 08/03/25 by Georgina Smith LPN allopurinol 300 mg PO DAILY arm brace As directed Elbow support band Dx: lateral epicondylitis cholecalciferol (vitamin D3) 50 mcg PO DAILY comp.stocking,knee,long,medium 15mmHg to 20 mmHg diltiazem HCl ER 120 mg PO DAILY empagliflozin (Jardiance) 10 mg PO DAILY letrozole 2.5 mg PO DAILY letrozole 2.5 mg PO DAILY levothyroxine 250 mcg PO LESLIE@0630 levothyroxine mcg PO metolazone Frequency: Wednesday metoprolol tartrate 100 mg PO BID omeprazole 20 mg PO DAILY PRN potassium chloride ER 20 mEq PO BID rivaroxaban (Xarelto) 20 mg PO DAILY@1700 torsemide 40 mg (2 x 20 mg) PO QAM walker Standard wheeled walker [facility] Medical History (HFpEF) heart failure with preserved ejection fraction Arthritis HX: breast cancer SOB (shortness of breath) On anticoagulant therapy Invasive ductal carcinoma of right breast in female A-fib Hypothyroid Osteoporosis Urethral stenosis Depression with anxiety Thyroid cancer Acid reflux Kidney stone QAMAR (obstructive sleep apnea) Hypertension Knee pain, left Surgical History History of lumpectomy of right breast (09/20/24) Hx of dilation of urethra Hx of cystoscopy H/O colonoscopy History of partial hysterectomy History of thyroidectomy Family History Mother Lung cancer Father HTN (hypertension) Melanoma Sister Uterine cancer Social History Household Members: Spouse Housing: House Are you a primary long term care administrator to a significant other at home: No Do you presently have visiting nurse or other home services: No Alcohol intake: current Alcohol intake frequency: does not drink Patient Tobacco Use Status: Never used Tobacco e-Cigarette/Vaping Use: Never Used service: No Current occupational status: unemployed Current occupation: right handed Cognitive needs: No Hearing needs: No Vision needs: Yes Female Reproductive History Menstrual Age of Menarche: 13 Physical Exam Vital Signs: Last Vital Signs Pulse 78 08/03/25 13:42 BP 128/60 08/03/25 13:42 Pulse Ox 92 08/03/25 13:42 Oxygen Delivery Method Nasal Cannula 08/03/25 13:42 Oxygen Flow Rate 1.5 08/03/25 13:42 Office Procedures 6 Minute Walk Time:: 10:45 SPO2 % at rest: 92 (resting O2 ranged from 89-92% on room air) Pulse at rest: 78 SPO2 % during excercise: 85 Pulse during excercise: 92 SPO2 % after excercise: 92 Pulse after excercise: 90 Distance in yards walked: 250 Bernarda Score: 6 Performance Observations:: Yaquelin walked on level ground with a wheeled walker. She walked on room air for 20 yards before her SPO2 decreased to 86%, O2 started at 1.5 lpm and with a brief rest her SPO2 recovered to 93%. her SPO2 decreased again to 85% with ambulation of 20 yards, O2 increased to 2 lpm and her SPO2 recovered to 94%. She maintained her SPO2 91-92% on 2 lpm continuous O2. [address] - 6 Minute Walk Assessment & Plan Assessment & Plan (1) Dyspnea: Code(s): R06.00 - Dyspnea, unspecified Category: Medical (2) Supplemental oxygen dependent: Code(s): Z99.81 - Dependence on supplemental oxygen Category: Medical Plan 6 minute walk test Orders: Orders AMB 6 minute walk 08/03/25 Z99.81 - Dependence on supplemental oxygen Coding Level of Care Code Established Pt Est Pt Level 1 (92529) Patient Type Established Diagnoses Dyspnea R06.00 Supplemental oxygen dependent Z99.81 CPT Codes Coding ([id number]) Comment NURSE VISIT ONLY
[2025-08-03 13:46] VITALS: PULSE 78; O2SAT 92
== END 2025-08-03 10:30 | disposition home or self-care (01) ==
LOC: HO.HPS 10:04
PROVIDERS: PCP Internal Medicine; Visit Provider Internal Medicine Pulmonary Disease
DX: R06.00 Dyspnea, unspecified (principal); Z99.81 Dependence on supplemental oxygen

== ENCOUNTER 2025-09-04 10:13 | Outpatient (AMB) | payer MEDICARE, SELFPAY ==
--- OUTSIDE RECORDS SUMMARY | 2025-08-20 05:40 | XMS_ITS ---
Author Organization [facility] Address [address] [place] [address] Care Team Providers Care Material Yard Clerk Name Role Phone Amita Ruiz MD Primary Care Provider Jorje Last Jr, Arie Gibson [phone] REASON FOR VISIT Patient presents today for anemia Encounters Encounter Location Date Provider Diagnosis [facility] [address] [place] [phone] 08/20/2025 Arie Last Jr Plan Of Treatment Next Appt Details Provider Name:Arie jordan Jr, 12/12/2025 11:00:00 AM, [address], [address], [place], [address], Progress Notes * RAJ SOUZAOB:1960 ( 65 yo F)Acc No.[id number]:08/20/2025 Progress Notes Patient: TIFFANY IRWIN Provider: Manolo Last MD :1960 A ge:65 Y S ex:Female Date:08/20/2025 Address:[address] [place], [place] [id number] Pcp:Amita Ruiz MD Subjective: * Chief Complaints: * 1 . Patient presents today for anemia. * Medical History: Objective: * Vitals: Assessment: Plan: * Treatment: * * The named appointment provid er may or may not be the originator of this progress note, and it is not deemed complete until electronically signed by the appointment provider. Sign off status: Pending * Provider: Manolo Last MD Date: 0 08/20/2025 Generated for Janie melendez/Nu/Josep on: 1 12:10 PM EDT
[2025-09-04 10:26] VITALS: BP 104/58; PULSE 95; RESP 19; TEMP 36.8; O2SAT 94; BMI 47.6
--- NOTE | 2025-09-04 10:26 | A.OFFPC_ITS ---
Vital Signs 09/04/25 10:26 Height 5 ft 1 in Weight 252 lb BMI 47.6 BP 104/58 L Blood Pressure Location Rt brachial Position Sitting Respiration 19 Pulse 95 Pulse Source Pulse Oximeter Temp 98.3 F Temp Source Oral Pulse Oximetry (%) 94 Oxygen Delivery Method Nasal Cannula Intake Visit Reasons: Annual PE/inactive insurance check with OA Intake Note: Pt is here today for PE. Allergies erythromycin base Allergy (Intermediate, Verified 09/04/25 10:42) Abdominal Pain lisinopril Allergy (Intermediate, Verified 09/04/25 10:42) Rash Tobacco use date assessed: 09/04/25 Fall risk assessment: 2 + Falls in past year Last assessed Fall Risk: 09/04/25 Dental Screening Dental Screen Date: 04/30/25 HPI Annual PE/inactive insurance check with OA HPI Details Pt presents for PE PFSH Medical History (Updated 09/04/25 @ 11:46 by Amita Ruiz MD) Morbid obesity DM type 2 (diabetes mellitus, type 2) (HFpEF) heart failure with preserved ejection fraction Arthritis HX: breast cancer SOB (shortness of breath) On anticoagulant therapy Invasive ductal carcinoma of right breast in female A-fib Hypothyroid Osteoporosis Urethral stenosis Depression with anxiety Thyroid cancer Acid reflux Kidney stone QAMAR (obstructive sleep apnea) Hypertension Knee pain, left Surgical History History of lumpectomy of right breast (09/20/24) Hx of dilation of urethra Hx of cystoscopy H/O colonoscopy History of partial hysterectomy History of thyroidectomy Family History Mother Lung cancer Father HTN (hypertension) Melanoma Sister Uterine cancer Social History Household Members: Spouse Housing: House Are you a primary career advisor to a significant other at home: No Do you presently have visiting nurse or other home services: No Alcohol intake: current Alcohol intake frequency: does not drink Patient Tobacco Use Status: Never used Tobacco e-Cigarette/Vaping Use: Never Used service: No Current occupational status: unemployed Current occupation: right handed Cognitive needs: No Hearing needs: No Vision needs: Yes Female Reproductive History Menstrual Age of Menarche: 13 Questionnaire PHQ-9 Over the last 2 weeks, how often have you been bothered by any of the following problems? 1. Little interest or pleasure in doing things: nearly every day 2. Feeling down, depressed, or hopeless: nearly every day 3. Trouble falling or staying asleep, or sleeping too much: several days 4. Feeling tired or having little energy: nearly every day 5. Poor appetite or overeating: several days 6. Feeling bad about yourself - or that you are a failure or have let yourself or your family down: several days 7. Trouble concentrating on things, such as reading the newspaper or watching television: several days 8. Moving or speaking so slowly that other people could have noticed. Or the opposite - being so fidgety or restless that you have been moving around a lot more than usual: not at all 9. Thoughts that you would be better off or of hurting yourself in some way: not at all Total score: 13 Depression Screening Interpretation: Negative Depression Screening Done: Yes Source: Developed by Drs. Kenney Sweeney, Juana Oliva, Jaime Jiang and colleagues, with an educational petra from [email or web address]. Thrive Questionnaire Date Thrive assessed: 01/03/25 I am a: Patient What is your living situation today?: I have a steady place to live THRIVE Score: 0 DARLEEN-7 AMB Questionnaire DARLEEN-7 Date DARLEEN - 7 assessed: 04/30/25 Feeling nervous, anxious, or on edge: 1 = Several days Not being able to stop or control worryin = Several days Worrying too much about different things: 1 = Several days Trouble relaxin = Not at all Being so restless that it is hard to sit still: 0 = Not at all Becoming easily annoyed or irritable: 0 = Not at all Feeling afraid as if something awful might happen: 1 = Several days Total DARLEEN-7 score (0-4 normal; 5-9 mild; 10-14 moderate; 15-21 severe): 4 Source: Developed by Drs. Kenney Sweeney, Juana Oliva, Jaime Jiang and colleagues, with an educational petra from [email or web address]. Review of Systems Const All systems reviewed & are unremarkable except as noted in HPI and below Eyes Reports no additional complaints ENT Reports no additional complaints Card Reports no additional complaints Resp Reports no additional complaints GI Reports no additional complaints Reports no additional complaints Physical exam (Primary Care) Vital Signs: Last Vital Signs Temp 98.3 F 09/04/25 10:26 Pulse 95 09/04/25 10:26 Resp 19 09/04/25 10:26 BP 104/58 L 09/04/25 10:26 Pulse Ox 94 09/04/25 10:26 Oxygen Delivery Method Nasal Cannula 09/04/25 10:26 BMI result Body Mass Index 47.6 Tobacco/Smoking Status: Tobacco use Status Tobacco use date assessed 09/04/25 09/04/25 10:44 Patient Tobacco Use Status Never used Tobacco 09/04/25 10:26 e-Cigarette/Vaping Use Never Used 09/04/25 10:26 PHQ-9: PHQ-9 Score PHQ-9: Total score 13 09/04/25 10:39 Depression Screening Interpretation: Negative Thrive Assessment: Date of Thrive Assessment Date Thrive assessed 01/03/25 09/04/25 10:26 Const General: no acute distress HENMT Head: Yes normal to inspection Face and sinus: Yes normal facial exam Throat: Yes posterior oropharynx normal Eyes General: appearance normal, both eyes and all related structures Neck Neck: Yes supple Resp Effort & Inspection: normal respiratory effort Auscultation: diminished lung sounds Cardio Rhythm: regular rhythm Heart sounds: S1 normal heart sound present and S2 normal heart sound present GI Inspection: Yes normal to inspection Palpation (GI): Soft to palpation Percussion: Yes normal to percussion Auscultation: normal bowel sounds Extrem Other: Nonpitting edema 2+ bilaterally Coding Level of Care Code Est Pt Prev Care >65y(76351) Diagnoses Acute heart failure with preserved ejection fraction I50.31 Heart failure chronicity: acute Paroxysmal atrial fibrillation I48.0 Atrial fibrillation type: paroxysmal DM type 2 (diabetes mellitus, type 2) E11.9 Hypothyroid E03.9 Hypoventilation associated with obesity E66.2 Invasive ductal carcinoma of right breast in female C50.911 Morbid obesity E66.01 Assessment & Plan Assessment & Plan (1) (HFpEF) heart failure with preserved ejection fraction: Comment: [facility] 12/01/2024 LVEF 60-65%, nl RV, mild-mod MR, on Jardiance Code(s): I50.30 - Unspecified diastolic (congestive) heart failure Category: Medical Qualifiers: Heart failure chronicity: acute Qualified Code(s): I50.31 - Acute diastolic (congestive) heart failure Plan: On Jardiance and torsemide with metolazone, follow-up with Cardiology (2) A-fib: Comment: s/p catheter ablation in May/2025. off amiodarone established with [facility]. On Xarelto for anticoagulation Code(s): I48.91 - Unspecified atrial fibrillation Category: Medical Qualifiers: Atrial fibrillation type: paroxysmal Qualified Code(s): I48.0 - Paroxysmal atrial fibrillation Plan: On Xarelto and diltiazem, established with Cardiology (3) DM type 2 (diabetes mellitus, type 2): Comment: A1C 6.2 04/2025, random glucose 240 04/2025, on Jardiance Code(s): E11.9 - Type 2 diabetes mellitus without complications Category: Medical Plan: ADA diet increase physical activity weight loss discussed with the patient . She was advised to start monitoring her fasting blood glucose. A1c will be checked. Patient has been decreasing caloric intake and increasing physical activity for over 6 months not able to lose weight. Adding GLP 1 agonist discussed with the patient (4) Hypothyroid: Comment: Status post thyroidectomy for thyroid CA, f/u [place] [facility] 6MTHS Code(s): E03.9 - Hypothyroidism, unspecified Category: Medical Plan: Follow-up with endocrinology continue levothyroxine (5) Hypoventilation associated with obesity: Comment: Noncompliant with CPAP, referred to sleep Medicine Code(s): E66.2 - Morbid (severe) obesity with alveolar hypoventilation Category: Medical Plan: On supplemental O2 follow-up with sleep medicine, patient had sleep studies which was not diagnostic (6) Invasive ductal carcinoma of right breast in female: Comment: 08/2024 s/p lumpectomy and radiation at [facility] Code(s): C50.911 - Malignant neoplasm of unspecified site of right female breast Category: Medical Plan: Continue letrozole follow-up with Oncology and breast surgeon (7) Morbid obesity: Comment: BMI 47.6 08/2025 Code(s): E66.01 - Morbid (severe) obesity due to excess calories Category: Medical Plan: DECREASING CALORIC INTAKE INCREASING PHYSICAL ACTIVITY AND WEIGHT LOSS DISCUSSED WITH THE PATIENT
--- OUTSIDE RECORDS SUMMARY | 2025-09-04 12:10 | XMS_ITS ---
Author Organization [facility] Address [address] [place] [address] Phone Care Team Providers Care Computer Engineering Technologist Name Role Phone Amita Ruiz MD Primary Care Provider [phone] Active Problems Problem Noted Date Diagnosed Date COVID-19 12/01/2024 Acute hypoxemic respiratory failure due to COVID-19 ([facility] V24, [facility] V28) 12/01/2024 Malignant neoplasm of upper- outer quadrant of right breast in female, estrogen receptor positive ([facility] V24, [facility] V28) 11/09/2024 Cancer Staging:Pathologic:Stage IA(pT1c, pN0, cM0, G1, ER+, MN+, HER2-) - Signed by Radha Bourgeois MD on 11/09/2024 Iron deficiency anemia 11/07/2024 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 ([facility] V24) 11/07/2024 Depression with anxiety 11/07/2024 Arthritis 11/07/2024 A-fib ([facility] V24, [facility] V28) 11/07/2024 Hypothyroidism Current Treatment and Therapy Plans No current plan information found. Past Treatment and Therapy Plans No past plan information found. Current Radiation Episodes * 3D CONTAINER FILLER: Right BreastOverview* First Treatment Date Latest Treatment Date Treatment Site Technique Goal Episode Provider 12/18/2024 01/16/2025 Right Breast 3D CONTAINER FILLER Curative Babar Mast NP * Linked Problems Treatment Courses* Course 1 12/18/2024 - 01/16/2025 Treatment Sites Treatment Period Fraction Dose Fractions Total Dose Right Breast 12/18/2024 - 01/16/2025 267 / 267 cGy 4,272 / 4,272 cGy Resolved Problems Problem Noted Date Diagnosed Date Resolved Date Anemia 11/07/2024 11/07/2024
--- OUTSIDE RECORDS SUMMARY | 2025-09-04 12:10 | XMS_ITS | Patient Health Record ---
Author Organization [facility] Address [address] [place] [address] Care Team Providers Care Sas Bi Developer Name Role Phone Amita Ruiz MD Primary Care Provider Arie Eduardo Jr Unavailable [phone] Allergies Allergen (clinical drug ingredient) Drug/Non Drug [...] Problem Status W/U Status Risk Notes Problem [id number] Colon cancer screening (Z12.11) Active confirmed Problem 940816407 Anemia, unspecified type (D64.9) Active confirmed Problem 31908588 Irritable bowel syndrome with both constipation and diarrhea (K58.2) Active confirmed Vital Signs Blood pressure diastolic 111 mm Hg 02/15/2025 Height 5 ft 1 in in 02/15/2025 Blood pressure systolic 111 mm Hg 02/15/2025 Weight 250 lbs 02/15/2025 BMI 47.23 kg/m2 02/15/2025 Encounters Encounter Location Date Provider Diagnosis [facility] [address] [place] [phone] 02/15/2025 Arie Last Jr Anemia, unspecified type D64.9 [facility] [address] [place] [phone] 02/08/2025 Arie Last Jr Assessments Encounter Date [...] Provider Name:Arie jordan Jr, 12/12/2025 11:00:00 AM, [address] [place] [address], [address], [place], [address], Insurance Providers Payer Name Payer Address Payer Phone Subscriber Number Group Number Insured Name Patient Relationship to Insured Coverage Start Date Coverage End Date [facility] [address] [address] [place], [place] [id number] TIFFANY SOUZA Self - patient is the insured MEDICAID OF [employer] [address] [place] [id number] [id number] TIFFANY SOUZA Self - patient is the [...]
--- OUTSIDE RECORDS SUMMARY | 2025-09-04 12:10 | XMS_ITS | Clinical Summary ---
Author Organization [facility] Address [address] [place] [address] Phone Care Team Providers Care Teacher Home Therapy Name Role Phone Amita Ruiz MD Primary Care Provider [phone] Allergies Active Allergy Reactions Criticality Noted Date [...] Acute hypoxemic respiratory failure due to COVID-19 ([facility] V24, [facility] V28) 12/01/2024 Malignant neoplasm of upper- outer quadrant of right breast in female, estrogen receptor positive (CMS/HCC V24, [facility] V28) 11/09/2024 Cancer Staging:Pathologic:Stage IA(pT1c, pN0, cM0, G1, ER+, AR+, HER2-) - Signed by Radha Bourgeois MD on 11/09/2024 Iron deficiency anemia 11/07/2024 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 ([facility] V24) 11/07/2024 Depression with anxiety 11/07/2024 Arthritis 11/07/2024 A-fib ([facility] V24, [facility] V28) 11/07/2024 Hypothyroidism Resolved Problems Problem Noted Date Diagnosed Date Resolved Date Anemia 11/07/2024 11/07/2024 Surgical History Surgery Date Site/Laterality Comments COLONOSCOPY BREAST LUMPECTOMY 09/20/2024 Right PARTIAL HYSTERECTOMY THYROIDECTOMY CYSTOSCOPY Medical History Medical History Date Comments Cancer ([facility] V24, [facility] V28) Gout A-fib ([facility] V24, [facility] V28) Thyroid cancer ([facility] V24, [facility] V28) Sleep apnea Reflux esophagitis Family History [...] Safety Answer Date Record ed Physical Abuse Unrecognized value 12/01/2024 Verbal Abuse Unrecognized value 12/01/2024 Comments Unknown Sex and Gender Information [...] Last Done Comments Breast Cancer Screening 1960 Colorectal Cancer Screening: Colonoscopy 1960 DTaP,Tdap,and Td Vaccines (1 - Tdap) 1979 Pneumococcal Vaccine: 50+ Years (1 of 2 - PCV) 1979 Zoster Vaccines (1 of 2) 1979 Cervical Cancer Screening: Pap Smear 1981 RSV Immunization Adult Patients (1 - Risk 60-74 years 1-dose series) 2020 Hepatitis C Screening 10/13/2024 Social Influencers of Health Screening 10/13/2024 Depression Screening 11/29/2024 COVID-19 Vaccine ( season) 2025 09/29/2021, 03/25/2021, 03/04/2021 Influenza Vaccine (#1) 2025 , 09/08/2022, 11/06/2021, Additional history exists Falls Risk Assessment 12/07/2025 12/07/2024 Osteoporosis Screening (Bone Density Screening) 04/28/2034 04/28/2024, [...] currently active code status orders. Care Teams Teacher Home Therapy Relationship Specialty Start Date End Date Amita Ruiz MD [address] [facility] [place] [phone] PCP - General Internal Medicine 10/13/24
== END 2025-09-04 11:23 | disposition home or self-care (01) ==
PROVIDERS: PCP Internal Medicine; Visit Provider Internal Medicine
DX: Z00.00 Encounter for general adult medical examination without abnormal findings (principal); I50.31 Acute diastolic (congestive) heart failure; I48.0 Paroxysmal atrial fibrillation; E11.9 Type 2 diabetes mellitus without complications; E66.2 Morbid (severe) obesity with alveolar hypoventilation; C50.911 Malignant neoplasm of unspecified site of right female breast; E66.01 Morbid (severe) obesity due to excess calories; Z68.42 Body mass index [BMI] 45.0-49.9, adult; E03.9 Hypothyroidism, unspecified

== ENCOUNTER → 2025-09-04 10:13 | Outpatient (BNVA) | payer MEDICARE, SELFPAY | PROVIDERS: PCP Internal Medicine; Visit Provider Internal Medicine | DX: I50.31 Acute diastolic (congestive) heart failure (principal); I48.0 Paroxysmal atrial fibrillation; E11.9 Type 2 diabetes mellitus without complications; E03.9 Hypothyroidism, unspecified; E66.2 Morbid (severe) obesity with alveolar hypoventilation; C50.911 Malignant neoplasm of unspecified site of right female breast | CPT/HCPCS: 96127; 99397 ==

== ENCOUNTER 2025-09-05 13:55 | Outpatient (AMB) | payer MEDICARE, SELFPAY ==
--- NOTE | 2025-09-05 14:12 | A.OFFVIS_ITS ---
Vital Signs 09/05/25 14:14 Height 5 ft 1 in Weight 252 lb 3.341 oz BMI 47.6 BP 130/62 Blood Pressure Location Lt radial Position Sitting Pulse 73 Pulse Source Pulse Oximeter Intake Visit Reasons: 3+ mth f/up Intake Note: 3 mth f/up Nursing Clinical Director Required: No Accompanied by: Significant Other Allergies erythromycin base Allergy (Intermediate, Verified 09/04/25 10:42) Abdominal Pain lisinopril Allergy (Intermediate, Verified 09/04/25 10:42) Rash Medication List - Last Reconciled 09/05/25 by Andrea Galarza MD allopurinol 300 mg PO DAILY arm brace As directed Elbow support band Dx: lateral epicondylitis cholecalciferol (vitamin D3) 50 mcg PO DAILY comp.stocking,knee,long,medium 15mmHg to 20 mmHg diltiazem HCl ER 120 mg PO DAILY empagliflozin (Jardiance) 10 mg PO DAILY letrozole 2.5 mg PO DAILY letrozole 2.5 mg PO DAILY levothyroxine 250 mcg PO LESLIE@0630 levothyroxine mcg PO metolazone Frequency: Wednesday metoprolol tartrate 100 mg PO BID omeprazole 20 mg PO DAILY PRN potassium chloride ER 20 mEq PO BID rivaroxaban (Xarelto) 20 mg PO DAILY@1700 torsemide 40 mg (2 x 20 mg) PO QAM walker Standard wheeled walker HPI Comments Details: Pleasant 65 year female who is here for follow-up. She has background of paroxysmal atrial fibrillation which has been quite difficult to control and she is currently on amiodarone. She was getting some issues with amiodarone 200 mg dose with some hair loss and the dose was decreased to 100 mg previously by the nurse practitioner. She also has diastolic heart failure and has been on torsemide and metolazone. She was referred for AFib ablation and underwent assessment and due to her oxygen dependence since November 2024 (after COVID-19 infection) it was decided to do a CT chest on her to rule out any interstitial lung disease due to COVID and due to the fact that she is on amiodarone. CT chest has not shown any significant interstitial lung disease but did show by basilar atelectasis versus scarring. She had blood workup done in April which is showing contraction alkalosis and hypokalemia. She is taking metolazone 3 times a week along with torsemide. She also got diagnosed with venous reflux and underwent ablation on the left leg and will be getting an on the right side. She has been oxygen dependent since November 2024 and is saying that if she does not wear oxygen her saturations dropped to 85%. She feels somewhat lightheaded when this happens. She is saying with the oxygen she functions okay. No significant orthopnea or PND. She continues to have peripheral edema on examination. 09/05/2025: She is here for follow-up. She underwent ablation for atrial fibrillation in May and has been taken off the amiodarone. She continues to have oxygen dependent since she had COVID-19 infection. She is using 2 L/min all the time. She had PE ruled out at that time. She continues to have also lower extremity edema and has been using metolazone 2 times a week. She is taking torsemide 40 mg daily. She gets out of breath easily when she ambulates. She had vein ablation of the left leg before but she has symmetric bilateral edema at this point and she has been told that there is no ablation required as per her discussion with vascular surgeon. [facility] Medical History Morbid obesity DM type 2 (diabetes mellitus, type 2) (HFpEF) heart failure with preserved ejection fraction Arthritis HX: breast cancer SOB (shortness of breath) On anticoagulant therapy Invasive ductal carcinoma of right breast in female A-fib Hypothyroid Osteoporosis Urethral stenosis Depression with anxiety Thyroid cancer Acid reflux Kidney stone QAMAR (obstructive sleep apnea) Hypertension Knee pain, left Surgical History History of lumpectomy of right breast (09/20/24) Hx of dilation of urethra Hx of cystoscopy H/O colonoscopy History of partial hysterectomy History of thyroidectomy Family History Mother Lung cancer Father HTN (hypertension) Melanoma Sister Uterine cancer Social History Household Members: Spouse Housing: House Are you a primary rehab care assistant to a significant other at home: No Do you presently have visiting nurse or other home services: No Alcohol intake: current Alcohol intake frequency: does not drink Patient Tobacco Use Status: Never used Tobacco e-Cigarette/Vaping Use: Never Used service: No Current occupational status: unemployed Current occupation: right handed Cognitive needs: No Hearing needs: No Vision needs: Yes Female Reproductive History Menstrual Age of Menarche: 13 Review of Systems Const Denies chills, Denies fatigue, Denies fever(s), Denies frequent falls, Denies weakness, Denies weight gain and Denies weight loss ENT Denies dizziness Card Denies chest pain, Denies leg edema, Denies lightheadedness, Denies palpitations, Denies dyspnea and Denies dyspnea on exertion Resp Denies cough, Denies dyspnea and Denies dyspnea on exertion GI Denies hematochezia Musc Denies abnormal gait, Denies muscle weakness, Denies numbness, Denies radiating pain into limb and Denies tingling Neuro Denies abnormal gait, Denies dizziness, Denies frequent falls, Denies numbness, Denies tingling and Denies weakness Endo Denies fatigue and Denies palpitations Physical Exam Vital Signs: Last Vital Signs Pulse 73 09/05/25 14:14 BP 130/62 09/05/25 14:14 BMI result Body Mass Index 47.6 GENERAL APPEARANCE: in no acute distress, pleasant. On supplemental oxygen by nasal cannula. NECK: no carotid bruit, mild jugular venous distention. SKIN: no suspicious lesions, warm and dry. HEART: no murmurs, regular rate and rhythm. LUNGS: clear to auscultation bilaterally. ABDOMEN: soft, nontender. EXTREMITIES: + 2 edema up to knees. PERIPHERAL PULSES: equal. NEUROLOGIC: No gross deficits, AAO X 3 Assessment & Plan Assessment & Plan (1) (HFpEF) heart failure with preserved ejection fraction: Comment: [facility] [place] 12/01/2024 LVEF 60-65%, nl RV, mild-mod MR, on Jardiance Code(s): I50.30 - Unspecified diastolic (congestive) heart failure Category: Medical Qualifiers: Heart failure chronicity: acute Qualified Code(s): I50.31 - Acute diastolic (congestive) heart failure (2) A-fib: Comment: s/p catheter ablation in May/2025. off amiodarone established with [facility] and [facility]. On Xarelto for anticoagulation Code(s): I48.91 - Unspecified atrial fibrillation Category: Medical Qualifiers: Atrial fibrillation type: paroxysmal Qualified Code(s): I48.0 - Paroxysmal atrial fibrillation Plan Pleasant 65 year female who is here for follow-up. She has background history of paroxysmal atrial fibrillation now status post ablation and off amiodarone. She is taking metoprolol tartrate 100 mg twice a day and Cardizem 120 mg daily. She has peripheral edema which is still present and she has been oxygen dependent since her COVID-19 infection. At that time no PE was noted. Clinically she does not look in bed failure to explain the hypoxia. He does have some JVD and I have advised her that she should take torsemide twice a day on Wednesday and Wednesday for the next couple of weeks to see if this improves her lower extremity edema. I have advised her not to use metolazone in this time because it may cause too much potassium loss and may trigger arrhythmia. She will report to us and we will discuss whether this is a long- term strategy for her not. She will also use compression stockings which a script was given to her before. I think lower extremity edema is a combination of congestive heart failure and venous insufficiency. Her legs do improve when she raises them and overnight there is improvement in her edema 2. She will see us back in 2 months. Thank you for allowing me to participate in the care of your patient. Please feel free to contact me if you have any questions. Coding Level of Care Code Est Pt Level 5 (86432) Diagnoses Acute heart failure with preserved ejection fraction I50.31 Heart failure chronicity: acute Paroxysmal atrial fibrillation I48.0 Atrial fibrillation type: paroxysmal
[2025-09-05 14:14] VITALS: BP 130/62; PULSE 73; BMI 47.6
== END 2025-09-05 14:49 | disposition home or self-care (01) ==
LOC: HO.HCS 13:55
PROVIDERS: PCP Internal Medicine; Visit Provider Internal Medicine Cardiovascular Disease
DX: I50.31 Acute diastolic (congestive) heart failure (principal); I48.0 Paroxysmal atrial fibrillation
CPT/HCPCS: 99214

== ENCOUNTER → 2025-09-05 13:55 | Outpatient (BNVA) | payer MEDICARE, SELFPAY | PROVIDERS: PCP Internal Medicine; Visit Provider Internal Medicine Cardiovascular Disease | DX: I50.31 Acute diastolic (congestive) heart failure (principal); I48.0 Paroxysmal atrial fibrillation; Z99.81 Dependence on supplemental oxygen; R60.9 Edema, unspecified; E66.01 Morbid (severe) obesity due to excess calories; Z68.42 Body mass index [BMI] 45.0-49.9, adult; I11.0 Hypertensive heart disease with heart failure | CPT/HCPCS: 99212 ==

== ENCOUNTER 2025-09-06 10:39 | Outpatient (AMB) | payer MEDICARE, SELFPAY ==
[2025-09-06 10:54] VITALS: BP 138/62; PULSE 86; O2SAT 97; BMI 48.0
--- NOTE | 2025-09-06 10:54 | A.OFFVIS_ITS ---
Vital Signs 09/06/25 10:54 Height 5 ft 1 in Weight 254 lb BMI 48.0 BP 138/62 Blood Pressure Location Lt brachial Position Sitting Pulse 86 Pulse Source Pulse Oximeter Pulse Oximetry (%) 97 Oxygen Delivery Method Nasal Cannula Oxygen Flow Rate 2 Intake Visit Reasons: Dyspnea Allergies erythromycin base Allergy (Intermediate, Verified 09/04/25 10:42) Abdominal Pain lisinopril Allergy (Intermediate, Verified 09/04/25 10:42) Rash HPI HPI Dyspnea: Details: 65-year-old lady, nonsmoker, with underlying QAMAR on CPAP, paroxysmal AFib, status post ablation followed for pulmonary component to dyspnea that is supplemental oxygen dependent. After last office visit patient was evaluated by her brazing machine operator helper of his suggested changing to her diuretic regimen that patient is going to try. She continues with significant lower extremity edema, orthopnea, and dyspnea on exertion. [facility] Medical History Morbid obesity DM type 2 (diabetes mellitus, type 2) (HFpEF) heart failure with preserved ejection fraction Arthritis HX: breast cancer SOB (shortness of breath) On anticoagulant therapy Invasive ductal carcinoma of right breast in female A-fib Hypothyroid Osteoporosis Urethral stenosis Depression with anxiety Thyroid cancer Acid reflux Kidney stone QAMAR (obstructive sleep apnea) Hypertension Knee pain, left Surgical History History of lumpectomy of right breast (09/20/24) Hx of dilation of urethra Hx of cystoscopy H/O colonoscopy History of partial hysterectomy History of thyroidectomy Family History Mother Lung cancer Father HTN (hypertension) Melanoma Sister Uterine cancer Social History Household Members: Spouse Housing: House Are you a primary client care coordinator to a significant other at home: No Do you presently have visiting nurse or other home services: No Alcohol intake: current Alcohol intake frequency: does not drink Patient Tobacco Use Status: Never used Tobacco e-Cigarette/Vaping Use: Never Used service: No Current occupational status: unemployed Current occupation: right handed Cognitive needs: No Hearing needs: No Vision needs: Yes Female Reproductive History Menstrual Age of Menarche: 13 Review of Systems Const Denies daytime sleepiness, Denies excessive sweating, Denies fatigue, Denies fever(s), Denies lethargy, Denies malaise, Denies night sweats, Denies snoring and Denies weight loss Eyes Denies blurry vision and Denies itchy eyes ENT Denies nasal congestion, Denies post nasal drip, Denies sinus pain, Denies sinus pressure and Denies other ( Thrush) Card Denies chest pain, Reports pedal edema, Denies dyspnea, Reports dyspnea on exertion, Reports orthopnea and Denies paroxysmal nocturnal dyspnea Resp Denies cough, Denies hemoptysis, Denies excessive phlegm production, Denies dyspnea, Reports dyspnea on exertion, Denies snoring and Denies wheezing GI Denies abdominal pain and Denies heartburn Musc Denies myalgias, Denies arthralgias and Denies joint swelling Skin/Breast Denies rash Neuro Denies memory loss and Denies seizure-like activity Psych Denies abnormal sleep pattern, Denies anxiety and Denies memory loss Endo Denies excessive sweating, Denies fatigue and Denies heat intolerance Maynor/Lymph Denies easy bruising Aller/Immun Denies itchy eyes, Denies seasonal rhinorrhea and Denies wheezing Physical Exam Vital Signs: Last Vital Signs Pulse 86 09/06/25 10:54 BP 138/62 09/06/25 10:54 Pulse Ox 97 09/06/25 10:54 Oxygen Delivery Method Nasal Cannula 09/06/25 10:54 Oxygen Flow Rate 2 09/06/25 10:54 BMI result Body Mass Index 48.0 Const General: no acute distress and alert Nutritional Appearance: obese Orientation/consciousness: Other orientation findings ( oriented) HEENT Head: Yes atraumatic Eyes General: appearance normal, both eyes and all related structures Sclerae: sclerae normal EOM: EOMs intact bilaterally Neck Neck: Yes supple Lymphatic: no lymphadenopathy noted Resp Effort & Inspection: normal respiratory effort and no use of accessory muscles Auscultation: crackles (Mild bibasilar) Cardio Rate: regular rate Rhythm: regular rhythm Heart sounds: no gallops, no murmurs and no rubs Skin General skin exam: other ( warm) Extrem General: No clubbing, No cyanosis and Yes edema (2+ bilateral) Assessment & Plan Assessment & Plan (1) Orthopnea: Code(s): R06.01 - Orthopnea Category: Medical Plan: Still with no significant changes in her orthopnea lower extremity edema. Patient recently evaluated by her brazing machine operator helper with suggestion for different diuretic regimen. Patient is going to try and call back if not improving within several weeks, at that time may consider bumetanide/metolazone combination. (2) Supplemental oxygen dependent: Code(s): Z99.81 - Dependence on supplemental oxygen Category: Medical Plan: Continue supplemental oxygen to maintain O2 saturation above 88%. Coding Level of Care Code Est Pt Level 4 (12411) Diagnoses Orthopnea R06.01 Supplemental oxygen dependent Z99.81
== END 2025-09-06 11:15 | disposition home or self-care (01) ==
PROVIDERS: PCP Internal Medicine; Visit Provider Internal Medicine Pulmonary Disease
DX: R06.01 Orthopnea (principal); Z99.81 Dependence on supplemental oxygen
CPT/HCPCS: 99214

== ENCOUNTER → 2025-09-06 10:39 | Outpatient (BNVA) | payer MEDICARE, SELFPAY | PROVIDERS: PCP Internal Medicine; Visit Provider Internal Medicine Pulmonary Disease | DX: R06.01 Orthopnea (principal); E66.01 Morbid (severe) obesity due to excess calories; Z68.42 Body mass index [BMI] 45.0-49.9, adult; E11.65 Type 2 diabetes mellitus with hyperglycemia; Z79.84 Long term (current) use of oral hypoglycemic drugs; Z99.81 Dependence on supplemental oxygen; G47.33 Obstructive sleep apnea (adult) (pediatric); Z99.89 Dependence on other enabling machines and devices | CPT/HCPCS: 99212 ==

== ENCOUNTER 2025-09-07 10:25 | Outpatient (AMB) | payer MEDICARE, SELFPAY ==
[2025-09-07 10:27] VITALS: BP 134/80; PULSE 84; O2SAT 80; BMI 48.6
--- NOTE | 2025-09-07 10:27 | MHC.OFFVIS ---
Vital Signs 09/07/25 10:27 Height 5 ft 1 in Weight 257 lb 4 oz BMI 48.6 BP 134/80 Blood Pressure Location Lt brachial Position Sitting Pulse 84 Pulse Source Pulse Oximeter Pulse Oximetry (%) 80 L Oxygen Delivery Method Nasal Cannula Intake Visit Reasons: follow up sleep study Intake Note: Patient presents follow up QAMAR. PSG in chart(AHI-0, PARAM-78%). Accompanied by: Spouse Allergies erythromycin base Allergy (Intermediate, Verified 09/07/25 10:33) Abdominal Pain lisinopril Allergy (Intermediate, Verified 09/07/25 10:33) Rash HPI Comments Details: 65 year old female with AFIb presents for a sleep evaluation. She had a r. breast lumpectomy for invasive ductal carcinoma in Aug 2024 and now is on Letrozole. She has AFib and is scheduled for an ablation procedure, currently she is on Amiodarone, Diltiazem, and 2 Liters O2 w/ NC. She goes to sleep in her recliner, gasps for air, she has witnessed apneas according to her . She snores when she is laying flat and has a difficult time falling asleep in her bed when flat. She can sleep 2-3 hours in her chair. She denies parasomnias, and morning headaches. She has RLS symptoms bilaterally an uncomfortable feeling in lower extremities which resolves when she moves her feet. The sensation is not painful, though it keeps her up at night, she denies paresthesias, cramps and spasms. She discontinued use of her cpap due to claustrophobic episodes years ago, and now needs a nasal mask to start using CPAP as patient is more comfortable using the Nasal cannula with her O2 NC. She has pulmonary rehabilitation 2x / week. Knee pain bilateral however will see weight management, after cardiology and pulmonology f/u. She is being followed by oncology and will start iron infusion for anemia. We reviewed her labs today. Her memory, and mood is good. Diet is poor. [facility] Medical History Morbid obesity DM type 2 (diabetes mellitus, type 2) (HFpEF) heart failure with preserved ejection fraction Arthritis HX: breast cancer SOB (shortness of breath) On anticoagulant therapy Invasive ductal carcinoma of right breast in female A-fib Hypothyroid Osteoporosis Urethral stenosis Depression with anxiety Thyroid cancer Acid reflux Kidney stone QAMAR (obstructive sleep apnea) Hypertension Knee pain, left Surgical History H/O cardiac ablation History of lumpectomy of right breast (09/20/24) Hx of dilation of urethra Hx of cystoscopy H/O colonoscopy History of partial hysterectomy History of thyroidectomy Family History Mother Lung cancer Father HTN (hypertension) Melanoma Sister Uterine cancer Social History Household Members: Spouse Housing: House Are you a primary cattle care worker to a significant other at home: No Do you presently have visiting nurse or other home services: No Alcohol intake: current Alcohol intake frequency: does not drink Patient Tobacco Use Status: Never used Tobacco e-Cigarette/Vaping Use: Never Used service: No Current occupational status: unemployed Current occupation: right handed Cognitive needs: No Hearing needs: No Vision needs: Yes Female Reproductive History Menstrual Age of Menarche: 13 Physical Exam Exam Exam: pt. sitting in wheel chair on 2L of oxygen with NC. Vital Signs: Last Vital Signs Pulse 84 09/07/25 10:27 BP 134/80 09/07/25 10:27 Pulse Ox 80 L 09/07/25 10:27 Oxygen Delivery Method Nasal Cannula 09/07/25 10:27 BMI result Body Mass Index 48.6 Const General: cooperative and no acute distress Nutritional Appearance: overweight Orientation/consciousness: patient oriented x3 Limitations: wheelchair HEENT Face and sinus: Yes face symmetric Teeth and gingiva: other (mallmapt score is 4) Neck Neck: Yes full ROM Resp Other: on 2Liters of oxygen with NC Effort & Inspection: able to speak in complete sentences Neuro General: patient oriented x3 and moves all extremities Cranial nerves: Yes Normal facial strength present, Yes Ability to bilaterally rotate head present and Yes Ability to bilaterally elevate shoulders present Cognition (Neuro): normal cognition Gait exam (Neuro): Assisted gait required and Other gait observations present (sitting in a wheel chair) Motor exam (neuro): Abnormal motor strength present and Abnormal muscle tone present Psych Appearance: grossly normal Mental Status: mental status grossly normal Speech and movement: Normal speech and movement present Attitude: cooperative Thought process: Normal thought process present Assessment & Plan Assessment & Plan (1) Excessive daytime sleepiness: Code(s): G47.19 - Other hypersomnia Category: Medical (2) QAMAR (obstructive sleep apnea): Comment: will be started on Cpap by neurology Code(s): G47.33 - Obstructive sleep apnea (adult) (pediatric) Category: Medical (3) Snoring: Code(s): R06.83 - Snoring Category: Medical (4) Invasive ductal carcinoma of right breast in female: Comment: 08/2024 s/p lumpectomy and radiation at [facility] Code(s): C50.911 - Malignant neoplasm of unspecified site of right female breast Category: Medical (5) Anemia: Code(s): D64.9 - Anemia, unspecified Category: Medical Qualifiers: Anemia type: iron deficiency Iron deficiency anemia type: other iron deficiency Qualified Code(s): D50.8 - Other iron deficiency anemias Plan PSG submitted to evaluate apnea, pt is on 2liters of oxygen NC and desaturation of oxygen noted on pulse ox today. She may need additional oxygen per titration, and template cutter, currently is in pulmonary rehab 2x / week. Anemia Labs to complete, being followed with Dr. Koo for Anemia and she is awaiting infusion. F/U post urgent in lab sleep study. Orders: Orders RT PSG in-lab sleep study Today G47.19 - Other hypersomnia, G47.33 - Obstructive sleep apnea (adult) (pediatric) Patient Instructions: Sleep Hygiene provided: set a scheduled bedtime and wake time to help regulate the circadian rhythm and balance the release of pituitary hormones. Sleep in a dark room, temperatures below 68 degrees, and no devices n bed. Limit caffeinated products 6 hours prior to bed, and limit fluids 2-4 hours prior to bed. Gentle night yoga, diffusing essential oils, and playing soft music can be relaxing. Evaluate oxygen levels and adjust as needed. Coding Level of Care Code New Pt Level 4 (44363) Diagnoses Excessive daytime sleepiness G47.19 QAMAR (obstructive sleep apnea) G47.33 Snoring R06.83 Invasive ductal carcinoma of right breast in female C50.911 Other iron deficiency anemia D50.8 Anemia type: iron deficiency Iron deficiency anemia type: other iron deficiency
== END 2025-09-07 11:15 | disposition home or self-care (01) ==
LOC: HO.HSMS 10:26
PROVIDERS: PCP Internal Medicine; Visit Provider Physician Assistant Medical
DX: G47.19 Other hypersomnia (principal); G47.33 Obstructive sleep apnea (adult) (pediatric); R06.83 Snoring; C50.911 Malignant neoplasm of unspecified site of right female breast; D50.8 Other iron deficiency anemias
CPT/HCPCS: 99214

== ENCOUNTER → 2025-09-07 10:25 | Outpatient (BNVA) | payer MEDICARE, SELFPAY | PROVIDERS: PCP Internal Medicine; Visit Provider Physician Assistant Medical | DX: G47.33 Obstructive sleep apnea (adult) (pediatric) (principal); G47.19 Other hypersomnia; R06.83 Snoring; E66.01 Morbid (severe) obesity due to excess calories; Z68.42 Body mass index [BMI] 45.0-49.9, adult; Z99.81 Dependence on supplemental oxygen; D50.8 Other iron deficiency anemias; C50.911 Malignant neoplasm of unspecified site of right female breast | CPT/HCPCS: 99212 ==

== ENCOUNTER 2025-09-17 11:17 | Outpatient (REF) | payer MEDICARE, SELFPAY ==
[2025-09-17 13:18] LABS: MANUAL DIFF FLAG NO
[2025-09-17 13:45] LABS: Hematocrit 39.2 % (37.0-47.0); Hemoglobin 11.0 g/dl (12.0-16.0); Imm Gran Abs Auto 0.06 X10*3/uL (0.00-0.03); Imm Gran Pct Auto 0.5 % (0.0-0.4); Lymphocytes Absolute Auto 1.7 X10*3/uL (1.2-4.9); Mean Corpuscular HGB Conc 28.1 g/dl (31.0-35.0); Mean Corpuscular Hemoglobin 24.1 pg (27.0-33.0); Mean Corpuscular Volume 85.8 fL (80.0-98.0); NRBC Abs Auto 0.000 X10*3/uL (0.0-0.012); NRBC Pct Auto 0.0 /100WBC (0.0-0.2); Platelet Count 333 X10*3/uL (160-400); Red Blood Count 4.57 X10*6/uL (4.20-5.50); White Blood Count 11.6 X10*3/uL (4.8-10.8)
[2025-09-17 14:06] LABS: Alanine Aminotransferase 15 U/L (0-31); Albumin Level 4.2 g/dL (3.5-5.0); Alkaline Phosphatase 86 U/L (39-117); Anion Gap 19 (12-20); Aspartate Amino Transferase 22 U/L (5-31); Blood Urea Nitrogen 18 mg/dL (9-16); Calcium 9.5 mg/dL (8.4-10.2); Carbon Dioxide 38 mmol/L (22-29); Chloride 92 mmol/L (96-108); Estimated Glomerular Filt Rate 58; Potassium 4.1 mmol/L (3.3-5.1); Sodium 145 mmol/L (135-145); Total Protein 7.0 g/dL (6.5-8.0)
[2025-09-19 10:53] LABS: Thyroid Stimulating Hormone 1.25 uIU/mL (0.32-4.0)
== END 2025-09-17 11:18 | disposition home or self-care (01) ==
LOC: HO.HMGCLDS 11:17
PROVIDERS: PCP Internal Medicine; Visit Provider Internal Medicine Medical Oncology
DX: D64.9 Anemia, unspecified (principal)
CPT/HCPCS: 36415; 80053; 84443; 85025

== ENCOUNTER 2025-11-02 09:30 | Outpatient (AMB) | payer MEDICARE, SELFPAY ==
[2025-11-02 09:36] VITALS: BP 154/60; PULSE 86; O2SAT 98; BMI 46.9
--- NOTE | 2025-11-02 09:36 | MHC.OFFWIV ---
Intake Vital Signs 11/02/25 09:36 Height 5 ft 1 in Weight 248 lb BMI 46.9 BP 154/60 H Blood Pressure Location Lt brachial Position Sitting Pulse 86 Pulse Source Pulse Oximeter Pulse Oximetry (%) 98 Oxygen Delivery Method Room Air Intake Visit Reasons: EP Left foot pain/swelling Intake Note: Patient presents c/o left foot/ankle swelling/pain x4 days. Patient Tobacco Use Status: Never used Tobacco Allergies erythromycin base Allergy (Intermediate, Verified 11/02/25 09:39) Abdominal Pain lisinopril Allergy (Intermediate, Verified 11/02/25 09:39) Rash HPI EP Left foot pain/swelling HPI Details 65 year old female patient with a PMH of T2DM, CHF, QAMAR, parox A-fib s/p ablation, on Xarelto. Oxygen dependent 2L - followed by Dr. Barrett for pulm. Reports to the [place] clinic today with report of swollen left foot/ankle for the last 4-5 days. Denies any injury. Reports it is very sore/tender, and much more swollen than usual. She recently was switched to Bumetanide from Torasemide however feels it is not as effective. History of gout - on allopurinol. [facility] Medical History Morbid obesity DM type 2 (diabetes mellitus, type 2) (HFpEF) heart failure with preserved ejection fraction Arthritis HX: breast cancer SOB (shortness of breath) On anticoagulant therapy Invasive ductal carcinoma of right breast in female A-fib Hypothyroid Osteoporosis Urethral stenosis Depression with anxiety Thyroid cancer Acid reflux Kidney stone QAMAR (obstructive sleep apnea) Hypertension Knee pain, left Surgical History H/O cardiac ablation History of lumpectomy of right breast (09/20/24) Hx of dilation of urethra Hx of cystoscopy H/O colonoscopy History of partial hysterectomy History of thyroidectomy Family History Mother Lung cancer Father HTN (hypertension) Melanoma Sister Uterine cancer Social History Household Members: Spouse Housing: House Are you a primary physician assistant primary care to a significant other at home: No Do you presently have visiting nurse or other home services: No Alcohol intake: current Alcohol intake frequency: does not drink Patient Tobacco Use Status: Never used Tobacco e-Cigarette/Vaping Use: Never Used service: No Current occupational status: unemployed Current occupation: right handed Cognitive needs: No Hearing needs: No Vision needs: Yes Female Reproductive History Menstrual Age of Menarche: 13 Review of Systems Const All systems reviewed & are unremarkable except as noted in HPI and below Physical Exam Vital Signs: BMI result Body Mass Index 47.2 Const General: cooperative and no acute distress Resp Other: 2L O2 via NC Effort & Inspection: normal respiratory effort Cardio Rate: regular rate Rhythm: regular rhythm Skin General skin exam: no rashes or lesions noted Extrem Other: left foot and ankle with 2+ nonpitting edema. Tenderness and mild erythema to top of left foot. Normal ankle ROM. General: Yes capillary refill normal Psych Appearance: grossly normal Mental Status: mental status grossly normal Speech and movement: Normal speech and movement present Assessment & Plan Assessment & Plan (1) Gout of left foot: Code(s): M10.9 - Gout, unspecified Qualifiers: Gout etiology: unspecified cause Chronicity: acute Qualified Code(s): M10.9 - Gout, unspecified Plan: Will start patient on prednisone taper. We reviewed indications, use, possible s/e of medication. She has a call out to Dr. Barrett's office to inquire about changing diuretic back to Torsemide. I applied RICARDO wrap and advised patient elevate and ice area as needed/tolerated. All questions were answered and patient verbalizes understanding and agrees to plan. Medications: New prednisone Take 4 tabs for two days, then take 3 tabs for two days, then take 2 tabs for two days, then take 1 tab for 2 days. 10 mg PO DAILY 20 tabs 0RF M10.9 - Gout, unspecified Coding Level of Care Code Est Pt Level 4 (22831) Diagnoses Acute gout of left foot, unspecified cause M10.9 Gout etiology: unspecified cause Chronicity: acute
== END 2025-11-02 10:32 | disposition home or self-care (01) ==
PROVIDERS: Visit Provider Nurse Practitioner Family
DX: M10.9 Gout, unspecified (principal)

== ENCOUNTER → 2025-11-02 09:30 | Outpatient (BNVA) | payer MEDICARE, SELFPAY | PROVIDERS: Visit Provider Nurse Practitioner Family | DX: M10.9 Gout, unspecified (principal) | CPT/HCPCS: 99212 ==

== ENCOUNTER 2025-11-08 10:11 | Outpatient (AMB) | payer MEDICARE, SELFPAY ==
[2025-11-08 10:15] VITALS: BP 138/52; PULSE 78; BMI 47.9
--- NOTE | 2025-11-08 10:15 | A.OFFVIS_ITS ---
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 Present Allergies erythromycin base Allergy (Intermediate, Verified 11/08/25 10:19) Abdominal Pain lisinopril Allergy (Intermediate, Verified 11/08/25 10:19) Rash Medication List - Last Reconciled 11/08/25 by RUBEN PruittC allopurinol 300 mg PO DAILY arm brace As directed Elbow support band Dx: lateral epicondylitis blood sugar diagnostic (Accu-Chek Guide test strips) Test blood sugar once a day blood-glucose meter (Accu-Chek Guide Glucose Meter) As directed cholecalciferol (vitamin D3) 50 mcg PO DAILY comp.stocking,knee,long,medium 15mmHg to 20 mmHg diltiazem HCl ER 120 mg PO DAILY empagliflozin (Jardiance) 10 mg PO DAILY gabapentin 100 mg PO BEDTIME 3 months MDD 300mg lancets (Accu-Chek Softclix Lancets) Test blood sugar once a day letrozole 2.5 mg PO DAILY levothyroxine 150 mcg PO DAILY metoprolol tartrate 100 mg PO BID omeprazole 20 mg PO DAILY PRN potassium chloride ER 20 mEq PO BID prednisone 10 mg PO DAILY rivaroxaban (Xarelto) 20 mg PO DAILY@1700 torsemide 40 mg PO DAILY walker Standard wheeled walker HPI HPI 2mth f/up-per km: Details: The patient is a 65 year old female presenting for follow-up of paroxysmal atrial fibrillation and management of lower extremity edema. She underwent an atrial fibrillation ablation in May 2025, which was successful, and amiodarone was discontinued at that time. She is currently treated with diltiazem and metoprolol for rate control and Xarelto for anticoagulation. The patient's primary concern is persistent bilateral lower extremity edema, which has been ongoing for nearly a year and worsened after a COVID-19 infection. She has tried multiple diuretics with temporary or limited relief; a recent trial of bumetanide reportedly worsened the swelling, prompting a return to torsemide 40 mg daily, which has increased her urination. She has a history of left leg vein ablation for venous insufficiency, which provided some relief, but the symptoms have returned. Past medical history is significant for morbid obesity, hypertension, heart failure with preserved ejection fraction, thyroid cancer, breast cancer (treated with letrozole), sleep apnea, and gout. She is oxygen dependent at 2 liters per minute and has noted her oxygen saturation dropping to 76% when off oxygen, which she corrects with deep breathing. Her mobility is limited due to bilateral knee pain and a fear of falling, leading to a sedentary lifestyle; she also sleeps in a recliner with her legs in a dependent position. present [facility] Medical History Morbid obesity DM type 2 (diabetes mellitus, type 2) (HFpEF) heart failure with preserved ejection fraction Arthritis HX: breast cancer SOB (shortness of breath) On anticoagulant therapy Invasive ductal carcinoma of right breast in female A-fib Hypothyroid Osteoporosis Urethral stenosis Depression with anxiety Thyroid cancer Acid reflux Kidney stone QAMAR (obstructive sleep apnea) Hypertension Knee pain, left Surgical History H/O cardiac ablation History of lumpectomy of right breast (09/20/24) Hx of dilation of urethra Hx of cystoscopy H/O colonoscopy History of partial hysterectomy History of thyroidectomy Family History Mother Lung cancer Father HTN (hypertension) Melanoma Sister Uterine cancer Social History Household Members: Spouse Housing: House Are you a primary director career to a significant other at home: No Do you presently have visiting nurse or other home services: No Alcohol intake: current Alcohol intake frequency: does not drink Patient Tobacco Use Status: Never used Tobacco e-Cigarette/Vaping Use: Never Used service: No Current occupational status: unemployed Current occupation: right handed Cognitive needs: No Hearing needs: No Vision needs: Yes Female Reproductive History Menstrual Age of Menarche: 13 Review of Systems Const All systems reviewed & are unremarkable except as noted in HPI and below ENT Denies dizziness Card Denies chest pain, Denies chest pain at rest, Denies chest pain with activity, Denies rapid heart rate, Reports pedal edema, Denies edema, Reports leg edema, Denies lightheadedness, Denies palpitations, Denies dyspnea, Reports dyspnea on exertion and Denies orthopnea Resp Denies cough, Denies dyspnea and Reports dyspnea on exertion GI Denies hematochezia and Denies change in stool character Musc Reports abnormal gait (uses rotlator), Denies limited range of motion, Denies muscle cramps, Denies muscle weakness, Denies numbness, Denies radiating pain into limb, Denies stiffness and Denies tingling Neuro Reports abnormal gait (uses rotlator), Denies dizziness, Denies numbness and Denies tingling Endo Denies palpitations Physical Exam Vital Signs: Last Vital Signs Pulse 78 11/08/25 10:15 BP 138/52 L 11/08/25 10:15 BMI result Body Mass Index 47.9 Const Other: Morbid obesity. General: cooperative, healthy appearing, comfortable and no acute distress Orientation/consciousness: patient oriented x3 Neck Neck: Yes normal visual inspection Resp Other: wearing O2 with nasal cannula Effort & Inspection: normal respiratory effort Auscultation: clear to auscultation bilaterally, no rales, no rhonchi and no wheezes Cardio Rate: regular rate Rhythm: regular rhythm Heart sounds: S1 normal heart sound present, S2 normal heart sound present, no gallops, no murmurs and no rubs Neuro General: patient oriented x3 Extrem Other: Pitting edema from mid calf to feet General: No no pedal edema and No calf tenderness Psych Appearance: grossly normal Mental Status: mental status grossly normal Speech and movement: Normal speech and movement present Assessment & Plan Assessment & Plan (1) (HFpEF) heart failure with preserved ejection fraction: Comment: Echo Claudia 12/01/2024 LVEF 60-65%, nl RV, mild-mod MR, on Jardiance Code(s): I50.30 - Unspecified diastolic (congestive) heart failure Category: Medical Qualifiers: Heart failure chronicity: acute Qualified Code(s): I50.31 - Acute diastolic (congestive) heart failure Plan: History of heart failure with preserved EF with last echo showing EF 60-65%. She is on torsemide and Jardiance for heart failure management. On exam she does have lower extremity edema which is likely multifactorial in nature. Will have her increase torsemide to 40 mg b.i.d. for 3 days then go back to 40 mg daily. Reduce salt in diet, leg elevation, compression stocking use all discussed. (2) A-fib: Comment: s/p catheter ablation in May/2025. off amiodarone established with [facility] and [facility]. On Xarelto for anticoagulation Code(s): I48.91 - Unspecified atrial fibrillation Category: Medical Qualifiers: Atrial fibrillation type: paroxysmal Qualified Code(s): I48.0 - Paroxysmal atrial fibrillation Plan: History of atrial fibrillation status post AFib ablation 05/2025. Amiodarone stopped at that time. Currently on diltiazem and metoprolol for heart rate control. Pulse is regular on examination, rate 78 today, clinically in sinus rhythm. She is on Xarelto for anticoagulation. Labs 09/17/2025 shows creatinine 0.97. No med changes made. (3) Lower extremity edema: Code(s): R60.0 - Localized edema Category: Medical Plan: As above -chronic (4) Morbid obesity: Comment: BMI 47.6 08/2025 Code(s): E66.01 - Morbid (severe) obesity due to excess calories Category: Medical Plan: Contributing factor to her lower leg edema, and decreased activity tolerance. Benefits a weight loss reviewed. Plan I explained to the patient and her that her chronic leg swelling is likely from multiple causes, including venous insufficiency, a sedentary lifestyle, salt in diet, her weight, and knee problems, rather than a single cause. I discussed that while her low-dose diltiazem could be a factor, it is an unlikely. We reviewed a multi-pronged approach to management, including a temporary increase in her diuretic (torsemide 40 mg twice daily for three days) to jump-start fluid removal. I emphasized the importance of consistent leg elevation when resting, wearing compression socks daily (applied in the morning), and increasing physical activity to activate the calf muscle pump. I stressed that weight loss is a critical component for long-term improvement and that there is no quick fix. We agreed on a plan to follow up with her primary flight purser, Dr. Galarza, in about three months. Patient Instructions: - For the next 3 days, take your torsemide 40 mg pill twice a day: once in the morning and once around 1:00 PM. - After 3 days, go back to taking your torsemide 40 mg pill just once a day in the morning. - When resting or sleeping, use pillows to raise your legs so that your feet are higher than your heart. - Wear your compression socks every day. Put them on first thing in the morning when the swelling in your legs is lowest. You can take them off at night. - Increase your physical activity to help with the swelling. You can try marching in place or using your recumbent exercise bike. - Continue to work on losing weight, as this is very important for improving the swelling and your overall health. - Get your flu shot and pneumonia shot as your doctor recommended. - Schedule a follow-up appointment in about 3 months. Patient was informed and verbally consented to the use of an ambient scribe for clinic note documentation during this visit. Visit time spent on chart review, interview, assessment, orders, documentation. Coding Level of Care Code Est Pt Level 4 (81992) Add On Problem Visit Only Diagnoses Acute heart failure with preserved ejection fraction I50.31 Heart failure chronicity: acute Paroxysmal atrial fibrillation I48.0 Atrial fibrillation type: paroxysmal Lower extremity edema R60.0 Morbid obesity E66.01 Time Spent (min) 36
== END 2025-11-08 11:00 | disposition home or self-care (01) ==
LOC: HO.HCS 10:12
PROVIDERS: PCP Internal Medicine; Visit Provider Nurse Practitioner Family
DX: I50.31 Acute diastolic (congestive) heart failure (principal); I48.0 Paroxysmal atrial fibrillation; R60.0 Localized edema; E66.01 Morbid (severe) obesity due to excess calories
CPT/HCPCS: 99214; G2211

== ENCOUNTER → 2025-11-08 10:11 | Outpatient (BNVA) | payer MEDICARE, SELFPAY | PROVIDERS: PCP Internal Medicine; Visit Provider Nurse Practitioner Family | DX: I50.31 Acute diastolic (congestive) heart failure (principal); I48.0 Paroxysmal atrial fibrillation; R60.0 Localized edema; E66.01 Morbid (severe) obesity due to excess calories | CPT/HCPCS: 99212 ==

== ENCOUNTER 2025-11-14 13:00 | Outpatient (RCR) | payer MEDICARE, SELFPAY ==
[2025-11-08 11:58] VITALS: BP 163/55; PULSE 71; RESP 16; TEMP 36.2; O2SAT 97
[2025-11-14 13:00] VITALS: BP 158/60; PULSE 83; RESP 16; TEMP 36.6; O2SAT 95
== END 2025-11-14 14:31 | disposition home or self-care (01) ==
LOC: HO.INF 13:00
PROVIDERS: Visit Provider Internal Medicine Medical Oncology
DX: D64.9 Anemia, unspecified (principal)
CPT/HCPCS: 96365; J1439